=== PATIENT | female | born 1975 | race Caucasian/White ===

== ENCOUNTER 2020-07-27 11:55 | Outpatient (REF) | payer MEDICARE, MEDICAID, SELFPAY ==
[2020-07-27 13:43] LABS: Valproate 61.4 mcg/mL (50.0-100.0)
[2020-07-27 13:44] LABS: Alanine Aminotransferase 21 U/L (0-31); Albumin Level 4.3 g/dL (3.5-5.0); Alkaline Phosphatase 63 U/L (39-117); Anion Gap 15 (12-20); Aspartate Amino Transferase 14 U/L (5-31); Bilirubin Total 0.2 mg/dL (0.0-1.0); Blood Urea Nitrogen 8 mg/dL (9-16); Calcium 8.5 mg/dL (8.4-10.2); Carbon Dioxide 29 mmol/L (22-29); Chloride 98 mmol/L (96-108); Estimated Glomerular Filt Rate > 60; Glucose Random 122 mg/dL (60-115); Potassium 4.8 mmol/l (3.3-5.1); Sodium 137 mmol/L (135-145); Total Protein 6.7 g/dL (6.5-8.0)
== END 2020-07-27 11:56 | disposition home or self-care (01) ==
LOC: HO.LAB 11:55
PROVIDERS: PCP Internal Medicine; Visit Provider Clinical Nurse Specialist Psychiatric/Mental Health, Adult
DX: Z79.899 Other long term (current) drug therapy (principal)
CPT/HCPCS: 80053; 80164

== ENCOUNTER 2020-08-12 12:41 | Outpatient (REF) | payer MEDICARE, MEDICAID, SELFPAY ==
[2020-08-12 13:13] LABS: MANUAL DIFF FLAG NO
[2020-08-12 13:21] LABS: Basophils Absolute Auto 0.1 X10*3/uL (0.0-0.2); Basophils Percent Auto 0.6 % (0-2); Eosinophils Absolute Auto 0.1 X10*3/uL (0.0-0.4); Hematocrit 42.4 % (37-47); Hemoglobin 14.1 g/dl (12.0-16.0); Imm Gran Abs Auto 0.06 X10*3/uL (0.00-0.03); Imm Gran Pct Auto 0.7 % (0.0-0.4); Lymphocytes Absolute Auto 2.5 X10*3/uL (1.2-4.9); Lymphocytes Percent Auto 30.6 % (20-40); Mean Corpuscular HGB Conc 33.3 g/dl (31.0-35.0); Mean Corpuscular Hemoglobin 30.7 pg (27.0-33.0); Mean Corpuscular Volume 92.4 fL (80-98); Mean Platelet Volume 10.8 fL (9.4-12.3); Monocytes Absolute Auto 0.7 X10*3/uL (0.1-1.2); Monocytes Percent Auto 8.4 % (2-11); Neutrophils Absolute Auto 4.8 X10*3/uL (2.0-8.3); Neutrophils Percent Auto 58.7 % (45-73); Platelet Count 210 X10*3/uL (160-400); Red Blood Count 4.59 X10*6/uL (4.20-5.50); Red Cell Distribution Width 13.2 % (11.0-16.0); White Blood Count 8.2 X10*3/uL (4.8-10.8)
== END 2020-08-12 12:42 | disposition home or self-care (01) ==
LOC: HO.LAB 12:41
PROVIDERS: PCP Internal Medicine; Visit Provider Clinical Nurse Specialist Psychiatric/Mental Health, Adult
DX: Z79.899 Other long term (current) drug therapy (principal)
CPT/HCPCS: 36415; 85025

== ENCOUNTER 2020-09-10 13:40 | Outpatient (REF) | payer MEDICARE, MEDICAID, SELFPAY ==
[2020-09-10 14:15] LABS: MANUAL DIFF FLAG NO
[2020-09-10 14:23] LABS: Basophils Percent Auto 0.3 % (0-2); Eosinophils Absolute Auto 0.1 X10*3/uL (0.0-0.4); Eosinophils Percent Auto 1.4 % (0-4); Hematocrit 45.1 % (37-47); Hemoglobin 14.7 g/dl (12.0-16.0); Imm Gran Abs Auto 0.02 X10*3/uL (0.00-0.03); Imm Gran Pct Auto 0.3 % (0.0-0.4); Lymphocytes Absolute Auto 2.4 X10*3/uL (1.2-4.9); Lymphocytes Percent Auto 37.2 % (20-40); Mean Corpuscular HGB Conc 32.6 g/dl (31.0-35.0); Mean Corpuscular Hemoglobin 29.8 pg (27.0-33.0); Mean Corpuscular Volume 91.3 fL (80-98); Mean Platelet Volume 10.8 fL (9.4-12.3); Monocytes Absolute Auto 0.5 X10*3/uL (0.1-1.2); Monocytes Percent Auto 8.3 % (2-11); Neutrophils Absolute Auto 3.4 X10*3/uL (2.0-8.3); Neutrophils Percent Auto 52.5 % (45-73); Platelet Count 187 X10*3/uL (160-400); Red Blood Count 4.94 X10*6/uL (4.20-5.50); Red Cell Distribution Width 13.3 % (11.0-16.0); White Blood Count 6.5 X10*3/uL (4.8-10.8)
== END 2020-09-10 13:41 | disposition home or self-care (01) ==
LOC: HO.LABR 13:40
PROVIDERS: PCP Internal Medicine; Visit Provider Clinical Nurse Specialist Psychiatric/Mental Health, Adult
DX: Z79.899 Other long term (current) drug therapy (principal)
CPT/HCPCS: 36415; 85025

== ENCOUNTER 2020-10-08 11:41 | Outpatient (REF) | payer MEDICARE, MEDICAID, SELFPAY ==
[2020-10-08 12:22] LABS: MANUAL DIFF FLAG NO
[2020-10-08 12:30] LABS: Basophils Percent Auto 0.4 % (0-2); Eosinophils Absolute Auto 0.1 X10*3/uL (0.0-0.4); Eosinophils Percent Auto 1.2 % (0-4); Hematocrit 43.3 % (37-47); Hemoglobin 14.2 g/dl (12.0-16.0); Imm Gran Abs Auto 0.03 X10*3/uL (0.00-0.03); Imm Gran Pct Auto 0.4 % (0.0-0.4); Lymphocytes Absolute Auto 2.6 X10*3/uL (1.2-4.9); Lymphocytes Percent Auto 37.7 % (20-40); Mean Corpuscular HGB Conc 32.8 g/dl (31.0-35.0); Mean Corpuscular Hemoglobin 30.1 pg (27.0-33.0); Mean Corpuscular Volume 91.9 fL (80-98); Monocytes Absolute Auto 0.6 X10*3/uL (0.1-1.2); Monocytes Percent Auto 9.2 % (2-11); Neutrophils Absolute Auto 3.5 X10*3/uL (2.0-8.3); Neutrophils Percent Auto 51.1 % (45-73); Platelet Count 180 X10*3/uL (160-400); Red Blood Count 4.71 X10*6/uL (4.20-5.50); Red Cell Distribution Width 13.5 % (11.0-16.0); White Blood Count 6.8 X10*3/uL (4.8-10.8)
== END 2020-10-08 11:42 | disposition home or self-care (01) ==
LOC: HO.LABR 11:41
PROVIDERS: PCP Internal Medicine; Visit Provider Clinical Nurse Specialist Psychiatric/Mental Health, Adult
DX: Z79.899 Other long term (current) drug therapy (principal)
CPT/HCPCS: 36415; 85025

== ENCOUNTER 2020-11-04 15:50 | Outpatient (REF) | payer MEDICARE, MEDICAID, SELFPAY ==
[2020-11-04 16:20] LABS: MANUAL DIFF FLAG NO
[2020-11-04 16:28] LABS: Basophils Percent Auto 0.4 % (0-2); Eosinophils Absolute Auto 0.1 X10*3/uL (0.0-0.4); Eosinophils Percent Auto 0.9 % (0-4); Hematocrit 44.4 % (37-47); Hemoglobin 14.3 g/dl (12.0-16.0); Imm Gran Abs Auto 0.03 X10*3/uL (0.00-0.03); Imm Gran Pct Auto 0.4 % (0.0-0.4); Lymphocytes Absolute Auto 2.8 X10*3/uL (1.2-4.9); Lymphocytes Percent Auto 35.4 % (20-40); Mean Corpuscular HGB Conc 32.2 g/dl (31.0-35.0); Mean Corpuscular Hemoglobin 29.9 pg (27.0-33.0); Mean Corpuscular Volume 92.7 fL (80-98); Mean Platelet Volume 10.9 fL (9.4-12.3); Monocytes Absolute Auto 0.7 X10*3/uL (0.1-1.2); Monocytes Percent Auto 8.2 % (2-11); Neutrophils Absolute Auto 4.4 X10*3/uL (2.0-8.3); Neutrophils Percent Auto 54.7 % (45-73); Platelet Count 179 X10*3/uL (160-400); Red Blood Count 4.79 X10*6/uL (4.20-5.50); Red Cell Distribution Width 13.5 % (11.0-16.0)
== END 2020-11-04 15:51 | disposition home or self-care (01) ==
LOC: HO.LABR 15:50
PROVIDERS: PCP Internal Medicine; Visit Provider Clinical Nurse Specialist Psychiatric/Mental Health, Adult
DX: Z79.899 Other long term (current) drug therapy (principal)
CPT/HCPCS: 36415; 85025

== ENCOUNTER 2020-12-02 17:22 | Outpatient (REF) | payer MEDICARE, MEDICAID, SELFPAY ==
[2020-12-02 17:52] LABS: MANUAL DIFF FLAG NO
[2020-12-02 18:19] LABS: Basophils Percent Auto 0.5 % (0-2); Eosinophils Absolute Auto 0.1 X10*3/uL (0.0-0.4); Eosinophils Percent Auto 0.7 % (0-4); Hemoglobin 14.3 g/dl (12.0-16.0); Imm Gran Abs Auto 0.04 X10*3/uL (0.00-0.03); Imm Gran Pct Auto 0.5 % (0.0-0.4); Lymphocytes Absolute Auto 2.7 X10*3/uL (1.2-4.9); Lymphocytes Percent Auto 31.2 % (20-40); Mean Corpuscular HGB Conc 32.5 g/dl (31.0-35.0); Mean Corpuscular Hemoglobin 30.4 pg (27.0-33.0); Mean Corpuscular Volume 93.6 fL (80-98); Mean Platelet Volume 11.5 fL (9.4-12.3); Monocytes Absolute Auto 0.6 X10*3/uL (0.1-1.2); Monocytes Percent Auto 7.1 % (2-11); Neutrophils Absolute Auto 5.2 X10*3/uL (2.0-8.3); Platelet Count 197 X10*3/uL (160-400); Red Cell Distribution Width 13.8 % (11.0-16.0); White Blood Count 8.6 X10*3/uL (4.8-10.8)
== END 2020-12-02 17:23 | disposition home or self-care (01) ==
LOC: HO.LABR 17:22
PROVIDERS: PCP Internal Medicine; Visit Provider Clinical Nurse Specialist Psychiatric/Mental Health, Adult
DX: Z79.899 Other long term (current) drug therapy (principal)
CPT/HCPCS: 36415; 85025

== ENCOUNTER 2020-12-30 15:51 | Outpatient (REF) | payer MEDICARE, MEDICAID, SELFPAY ==
[2020-12-30 16:20] LABS: MANUAL DIFF FLAG NO
[2020-12-30 16:24] LABS: Basophils Percent Auto 0.6 % (0-2); Eosinophils Absolute Auto 0.1 X10*3/uL (0.0-0.4); Hematocrit 43.5 % (37-47); Hemoglobin 14.3 g/dl (12.0-16.0); Imm Gran Abs Auto 0.03 X10*3/uL (0.00-0.03); Imm Gran Pct Auto 0.4 % (0.0-0.4); Lymphocytes Absolute Auto 2.7 X10*3/uL (1.2-4.9); Lymphocytes Percent Auto 38.8 % (20-40); Mean Corpuscular HGB Conc 32.9 g/dl (31.0-35.0); Mean Corpuscular Hemoglobin 30.4 pg (27.0-33.0); Mean Corpuscular Volume 92.4 fL (80-98); Mean Platelet Volume 11.3 fL (9.4-12.3); Monocytes Absolute Auto 0.6 X10*3/uL (0.1-1.2); Monocytes Percent Auto 8.6 % (2-11); Neutrophils Absolute Auto 3.6 X10*3/uL (2.0-8.3); Neutrophils Percent Auto 50.6 % (45-73); Platelet Count 188 X10*3/uL (160-400); Red Blood Count 4.71 X10*6/uL (4.20-5.50); Red Cell Distribution Width 13.1 % (11.0-16.0)
== END 2020-12-30 15:52 | disposition home or self-care (01) ==
LOC: HO.LABR 15:51
PROVIDERS: PCP Internal Medicine; Visit Provider Clinical Nurse Specialist Psychiatric/Mental Health, Adult
DX: Z79.899 Other long term (current) drug therapy (principal)
CPT/HCPCS: 36415; 85025

== ENCOUNTER 2021-01-26 15:32 | Outpatient (REF) | payer MEDICARE, MEDICAID, SELFPAY ==
[2021-01-26 16:25] LABS: MANUAL DIFF FLAG NO
[2021-01-26 16:35] LABS: Basophils Percent Auto 0.4 % (0-2); Eosinophils Absolute Auto 0.1 X10*3/uL (0.0-0.4); Eosinophils Percent Auto 0.9 % (0-4); Hematocrit 43.8 % (37-47); Hemoglobin 14.2 g/dl (12.0-16.0); Imm Gran Abs Auto 0.03 X10*3/uL (0.00-0.03); Imm Gran Pct Auto 0.4 % (0.0-0.4); Lymphocytes Absolute Auto 2.6 X10*3/uL (1.2-4.9); Lymphocytes Percent Auto 37.6 % (20-40); Mean Corpuscular HGB Conc 32.4 g/dl (31.0-35.0); Mean Corpuscular Hemoglobin 30.1 pg (27.0-33.0); Mean Platelet Volume 11.3 fL (9.4-12.3); Monocytes Absolute Auto 0.7 X10*3/uL (0.1-1.2); Monocytes Percent Auto 9.7 % (2-11); Neutrophils Absolute Auto 3.5 X10*3/uL (2.0-8.3); Platelet Count 204 X10*3/uL (160-400); Red Blood Count 4.71 X10*6/uL (4.20-5.50); Red Cell Distribution Width 13.4 % (11.0-16.0); White Blood Count 6.9 X10*3/uL (4.8-10.8)
== END 2021-01-26 15:33 | disposition home or self-care (01) ==
LOC: HO.LABR 15:32
PROVIDERS: Visit Provider Clinical Nurse Specialist Psychiatric/Mental Health, Adult
DX: Z79.899 Other long term (current) drug therapy (principal)
CPT/HCPCS: 36415; 85025

== ENCOUNTER 2021-02-22 15:36 | Outpatient (REF) | payer MEDICARE, MEDICAID, SELFPAY ==
[2021-02-22 15:56] LABS: MANUAL DIFF FLAG NO
[2021-02-22 15:59] LABS: Basophils Percent Auto 0.5 % (0-2); Eosinophils Absolute Auto 0.1 X10*3/uL (0.0-0.4); Hematocrit 42.7 % (37-47); Hemoglobin 14.1 g/dl (12.0-16.0); Imm Gran Abs Auto 0.03 X10*3/uL (0.00-0.03); Imm Gran Pct Auto 0.4 % (0.0-0.4); Lymphocytes Absolute Auto 2.9 X10*3/uL (1.2-4.9); Lymphocytes Percent Auto 37.6 % (20-40); Mean Corpuscular Hemoglobin 30.3 pg (27.0-33.0); Mean Corpuscular Volume 91.8 fL (80-98); Mean Platelet Volume 10.9 fL (9.4-12.3); Monocytes Absolute Auto 0.6 X10*3/uL (0.1-1.2); Neutrophils Absolute Auto 4.1 X10*3/uL (2.0-8.3); Neutrophils Percent Auto 52.5 % (45-73); Platelet Count 180 X10*3/uL (160-400); Red Blood Count 4.65 X10*6/uL (4.20-5.50); Red Cell Distribution Width 13.6 % (11.0-16.0); White Blood Count 7.7 X10*3/uL (4.8-10.8)
== END 2021-02-22 15:37 | disposition home or self-care (01) ==
LOC: HO.LABR 15:36
PROVIDERS: PCP Internal Medicine; Visit Provider Clinical Nurse Specialist Psychiatric/Mental Health, Adult
DX: Z79.899 Other long term (current) drug therapy (principal)
CPT/HCPCS: 36415; 85025

== ENCOUNTER 2021-03-22 13:33 | Outpatient (REF) | payer MEDICARE, MEDICAID, SELFPAY ==
[2021-03-22 13:59] LABS: MANUAL DIFF FLAG NO
[2021-03-22 14:05] LABS: Basophils Percent Auto 0.5 % (0-2); Eosinophils Absolute Auto 0.1 X10*3/uL (0.0-0.4); Eosinophils Percent Auto 1.1 % (0-4); Hematocrit 44.2 % (37-47); Hemoglobin 14.5 g/dl (12.0-16.0); Imm Gran Abs Auto 0.03 X10*3/uL (0.00-0.03); Imm Gran Pct Auto 0.5 % (0.0-0.4); Lymphocytes Absolute Auto 2.3 X10*3/uL (1.2-4.9); Lymphocytes Percent Auto 35.9 % (20-40); Mean Corpuscular HGB Conc 32.8 g/dl (31.0-35.0); Mean Corpuscular Hemoglobin 30.4 pg (27.0-33.0); Mean Corpuscular Volume 92.7 fL (80-98); Mean Platelet Volume 10.7 fL (9.4-12.3); Monocytes Absolute Auto 0.6 X10*3/uL (0.1-1.2); Monocytes Percent Auto 9.1 % (2-11); Neutrophils Absolute Auto 3.4 X10*3/uL (2.0-8.3); Neutrophils Percent Auto 52.9 % (45-73); Platelet Count 194 X10*3/uL (160-400); Red Blood Count 4.77 X10*6/uL (4.20-5.50); Red Cell Distribution Width 14.2 % (11.0-16.0); White Blood Count 6.4 X10*3/uL (4.8-10.8)
== END 2021-03-22 13:34 | disposition home or self-care (01) ==
LOC: HO.LABR 13:33
PROVIDERS: PCP Internal Medicine; Visit Provider Clinical Nurse Specialist Psychiatric/Mental Health, Adult
DX: Z79.899 Other long term (current) drug therapy (principal)
CPT/HCPCS: 36415; 85025

== ENCOUNTER 2021-04-19 13:57 | Outpatient (REF) | payer MEDICARE, MEDICAID, SELFPAY ==
[2021-04-19 14:20] LABS: MANUAL DIFF FLAG NO
[2021-04-19 14:24] LABS: Basophils Percent Auto 0.6 % (0-2); Eosinophils Absolute Auto 0.1 X10*3/uL (0.0-0.4); Eosinophils Percent Auto 1.1 % (0-4); Hematocrit 46.1 % (37-47); Hemoglobin 14.9 g/dl (12.0-16.0); Imm Gran Abs Auto 0.04 X10*3/uL (0.00-0.03); Imm Gran Pct Auto 0.6 % (0.0-0.4); Lymphocytes Absolute Auto 2.7 X10*3/uL (1.2-4.9); Lymphocytes Percent Auto 38.1 % (20-40); Mean Corpuscular HGB Conc 32.3 g/dl (31.0-35.0); Mean Corpuscular Hemoglobin 29.4 pg (27.0-33.0); Mean Corpuscular Volume 91.1 fL (80-98); Mean Platelet Volume 10.4 fL (9.4-12.3); Monocytes Absolute Auto 0.6 X10*3/uL (0.1-1.2); Monocytes Percent Auto 8.6 % (2-11); Neutrophils Absolute Auto 3.6 X10*3/uL (2.0-8.3); Platelet Count 188 X10*3/uL (160-400); Red Blood Count 5.06 X10*6/uL (4.20-5.50); Red Cell Distribution Width 13.4 % (11.0-16.0); White Blood Count 7.1 X10*3/uL (4.8-10.8)
[2021-04-23 21:35] LABS: Clozapine (Clozaril) 318 mcg/L; Norclozapine 109 mcg/L (25-400)
== END 2021-04-19 13:58 | disposition home or self-care (01) ==
LOC: HO.LABR 13:57
PROVIDERS: PCP Internal Medicine; Visit Provider Clinical Nurse Specialist Psychiatric/Mental Health, Adult
DX: Z79.899 Other long term (current) drug therapy (principal)
CPT/HCPCS: 36415; 80159; 85025

== ENCOUNTER 2021-05-17 14:29 | Outpatient (REF) | payer MEDICARE, MEDICAID, SELFPAY ==
[2021-05-17 15:22] LABS: MANUAL DIFF FLAG NO
[2021-05-17 15:31] LABS: Basophils Percent Auto 0.2 % (0-2); Eosinophils Absolute Auto 0.1 X10*3/uL (0.0-0.4); Eosinophils Percent Auto 0.7 % (0-4); Hematocrit 44.8 % (37-47); Hemoglobin 14.6 g/dl (12.0-16.0); Imm Gran Abs Auto 0.05 X10*3/uL (0.00-0.03); Imm Gran Pct Auto 0.6 % (0.0-0.4); Lymphocytes Absolute Auto 2.9 X10*3/uL (1.2-4.9); Lymphocytes Percent Auto 35.2 % (20-40); Mean Corpuscular HGB Conc 32.6 g/dl (31.0-35.0); Mean Corpuscular Hemoglobin 29.7 pg (27.0-33.0); Mean Corpuscular Volume 91.1 fL (80-98); Mean Platelet Volume 10.8 fL (9.4-12.3); Monocytes Absolute Auto 0.6 X10*3/uL (0.1-1.2); Monocytes Percent Auto 7.5 % (2-11); Neutrophils Absolute Auto 4.5 X10*3/uL (2.0-8.3); Neutrophils Percent Auto 55.8 % (45-73); Platelet Count 205 X10*3/uL (160-400); Red Blood Count 4.92 X10*6/uL (4.20-5.50); Red Cell Distribution Width 13.2 % (11.0-16.0); White Blood Count 8.1 X10*3/uL (4.8-10.8)
== END 2021-05-17 14:30 | disposition home or self-care (01) ==
LOC: HO.LABR 14:29
PROVIDERS: PCP Internal Medicine; Visit Provider Clinical Nurse Specialist Psychiatric/Mental Health, Adult
DX: Z79.899 Other long term (current) drug therapy (principal)
CPT/HCPCS: 36415; 85025

== ENCOUNTER 2021-06-14 16:24 | Outpatient (REF) | payer MEDICARE, MEDICAID, SELFPAY ==
[2021-06-14 16:46] LABS: MANUAL DIFF FLAG NO
[2021-06-14 16:50] LABS: Basophils Percent Auto 0.3 % (0-2); Eosinophils Absolute Auto 0.1 X10*3/uL (0.0-0.4); Eosinophils Percent Auto 0.7 % (0-4); Hematocrit 43.2 % (37-47); Hemoglobin 14.6 g/dl (12.0-16.0); Imm Gran Abs Auto 0.06 X10*3/uL (0.00-0.03); Imm Gran Pct Auto 0.6 % (0.0-0.4); Lymphocytes Absolute Auto 3.2 X10*3/uL (1.2-4.9); Lymphocytes Percent Auto 32.7 % (20-40); Mean Corpuscular HGB Conc 33.8 g/dl (31.0-35.0); Mean Corpuscular Hemoglobin 30.2 pg (27.0-33.0); Mean Corpuscular Volume 89.4 fL (80-98); Mean Platelet Volume 10.7 fL (9.4-12.3); Monocytes Absolute Auto 0.7 X10*3/uL (0.1-1.2); Monocytes Percent Auto 7.5 % (2-11); Neut%MD 58.2 %; Neutrophils Absolute Auto 5.7 X10*3/uL (2.0-8.3); Neutrophils Percent Auto 58.2 % (45-73); Platelet Count 199 X10*3/uL (160-400); Red Blood Count 4.83 X10*6/uL (4.20-5.50); WBCANC 9.9 X10*3/uL; White Blood Count 9.9 X10*3/uL (4.8-10.8)
== END 2021-06-14 16:25 | disposition home or self-care (01) ==
LOC: HO.LABR 16:24
PROVIDERS: PCP Internal Medicine; Visit Provider Clinical Nurse Specialist Psychiatric/Mental Health, Adult
DX: Z79.899 Other long term (current) drug therapy (principal)
CPT/HCPCS: 36415; 85025

== ENCOUNTER 2021-07-12 17:29 | Outpatient (REF) | payer MEDICARE, MEDICAID, SELFPAY ==
[2021-07-12 17:41] LABS: MANUAL DIFF FLAG NO
[2021-07-12 17:59] LABS: Basophils Percent Auto 0.5 % (0-2); Eosinophils Absolute Auto 0.1 X10*3/uL (0.0-0.4); Eosinophils Percent Auto 0.9 % (0-4); Hematocrit 45.2 % (37-47); Hemoglobin 14.8 g/dl (12.0-16.0); Imm Gran Abs Auto 0.06 X10*3/uL (0.00-0.03); Imm Gran Pct Auto 0.8 % (0.0-0.4); Lymphocytes Absolute Auto 3.4 X10*3/uL (1.2-4.9); Mean Corpuscular HGB Conc 32.7 g/dl (31.0-35.0); Mean Corpuscular Hemoglobin 29.9 pg (27.0-33.0); Mean Corpuscular Volume 91.3 fL (80-98); Monocytes Absolute Auto 0.6 X10*3/uL (0.1-1.2); Monocytes Percent Auto 7.8 % (2-11); Neutrophils Absolute Auto 3.9 X10*3/uL (2.0-8.3); Platelet Count 191 X10*3/uL (160-400); Red Blood Count 4.95 X10*6/uL (4.20-5.50); Red Cell Distribution Width 13.2 % (11.0-16.0)
== END 2021-07-12 17:30 | disposition home or self-care (01) ==
LOC: HO.LABR 17:29
PROVIDERS: PCP Internal Medicine; Visit Provider Clinical Nurse Specialist Psychiatric/Mental Health, Adult
DX: Z79.899 Other long term (current) drug therapy (principal)
CPT/HCPCS: 36415; 85025

== ENCOUNTER 2021-08-09 13:42 | Outpatient (REF) | payer MEDICARE, MEDICAID, SELFPAY ==
[2021-08-09 13:56] LABS: MANUAL DIFF FLAG NO
[2021-08-09 14:21] LABS: Basophils Percent Auto 0.3 % (0-2); Eosinophils Absolute Auto 0.1 X10*3/uL (0.0-0.4); Eosinophils Percent Auto 0.7 % (0-4); Hematocrit 47.3 % (37.0-47.0); Hemoglobin 15.5 g/dl (12.0-16.0); Imm Gran Abs Auto 0.04 X10*3/uL (0.00-0.03); Imm Gran Pct Auto 0.4 % (0.0-0.4); Lymphocytes Absolute Auto 3.5 X10*3/uL (1.2-4.9); Lymphocytes Percent Auto 33.3 % (20-40); Mean Corpuscular HGB Conc 32.8 g/dl (31.0-35.0); Mean Corpuscular Volume 91.5 fL (80.0-98.0); Mean Platelet Volume 11.2 fL (9.4-12.3); Monocytes Absolute Auto 0.8 X10*3/uL (0.1-1.2); Monocytes Percent Auto 7.8 % (2-11); Neutrophils Absolute Auto 6.1 x10*3/uL (2.0-8.3); Neutrophils Percent Auto 57.5 % (45-73); Platelet Count 193 X10*3/uL (160-400); Red Blood Count 5.17 X10*6/uL (4.20-5.50); Red Cell Distribution Width 13.2 % (11.0-16.0); White Blood Count 10.6 X10*3/uL (4.8-10.8)
== END 2021-08-09 13:43 | disposition home or self-care (01) ==
LOC: HO.LABR 13:42
PROVIDERS: Visit Provider Clinical Nurse Specialist Psychiatric/Mental Health, Adult
DX: Z79.899 Other long term (current) drug therapy (principal)
CPT/HCPCS: 36415; 85025

== ENCOUNTER 2021-09-06 14:06 | Outpatient (REF) | payer MEDICARE, MEDICAID, SELFPAY ==
[2021-09-06 14:18] LABS: MANUAL DIFF FLAG NO
[2021-09-06 14:32] LABS: Basophils Absolute Auto 0.1 X10*3/uL (0.0-0.2); Basophils Percent Auto 0.6 % (0-2); Eosinophils Absolute Auto 0.1 X10*3/uL (0.0-0.4); Eosinophils Percent Auto 0.8 % (0-4); Hematocrit 45.7 % (37.0-47.0); Hemoglobin 14.8 g/dl (12.0-16.0); Imm Gran Abs Auto 0.03 X10*3/uL (0.00-0.03); Imm Gran Pct Auto 0.3 % (0.0-0.4); Lymphocytes Absolute Auto 3.4 X10*3/uL (1.2-4.9); Lymphocytes Percent Auto 38.4 % (20-40); Mean Corpuscular HGB Conc 32.4 g/dl (31.0-35.0); Mean Corpuscular Volume 92.5 fL (80.0-98.0); Mean Platelet Volume 10.9 fL (9.4-12.3); Monocytes Absolute Auto 0.6 X10*3/uL (0.1-1.2); Monocytes Percent Auto 7.1 % (2-11); Neut%MD 52.8 %; Neutrophils Absolute Auto 4.6 x10*3/uL (2.0-8.3); Neutrophils Percent Auto 52.8 % (45-73); Platelet Count 200 X10*3/uL (160-400); Red Blood Count 4.94 X10*6/uL (4.20-5.50); Red Cell Distribution Width 13.2 % (11.0-16.0); WBCANC 8.8 X10*3/uL; White Blood Count 8.8 X10*3/uL (4.8-10.8)
== END 2021-09-06 14:07 | disposition home or self-care (01) ==
LOC: HO.LABR 14:06
PROVIDERS: PCP Internal Medicine; Visit Provider Clinical Nurse Specialist Psychiatric/Mental Health, Adult
DX: Z79.899 Other long term (current) drug therapy (principal)
CPT/HCPCS: 36415; 85025

== ENCOUNTER 2021-10-04 14:31 | Outpatient (REF) | payer MEDICARE, MEDICAID, SELFPAY ==
[2021-10-04 14:49] LABS: MANUAL DIFF FLAG NO
[2021-10-04 14:56] LABS: Basophils Percent Auto 0.4 % (0-2); Eosinophils Absolute Auto 0.1 X10*3/uL (0.0-0.4); Eosinophils Percent Auto 0.7 % (0-4); Hematocrit 48.2 % (37.0-47.0); Hemoglobin 15.7 g/dl (12.0-16.0); Imm Gran Abs Auto 0.04 X10*3/uL (0.00-0.03); Imm Gran Pct Auto 0.4 % (0.0-0.4); Lymphocytes Absolute Auto 3.5 X10*3/uL (1.2-4.9); Lymphocytes Percent Auto 38.5 % (20-40); Mean Corpuscular HGB Conc 32.6 g/dl (31.0-35.0); Mean Platelet Volume 10.8 fL (9.4-12.3); Monocytes Absolute Auto 0.7 X10*3/uL (0.1-1.2); Monocytes Percent Auto 7.2 % (2-11); Neut%MD 52.8 %; Neutrophils Absolute Auto 4.8 x10*3/uL (2.0-8.3); Neutrophils Percent Auto 52.8 % (45-73); Platelet Count 183 X10*3/uL (160-400); Red Blood Count 5.24 X10*6/uL (4.20-5.50); Red Cell Distribution Width 13.4 % (11.0-16.0); WBCANC 9.1 X10*3/uL; White Blood Count 9.1 X10*3/uL (4.8-10.8)
== END 2021-10-04 14:32 | disposition home or self-care (01) ==
LOC: HO.LABR 14:31
PROVIDERS: PCP Internal Medicine; Visit Provider Clinical Nurse Specialist Psychiatric/Mental Health, Adult
DX: Z79.899 Other long term (current) drug therapy (principal)
CPT/HCPCS: 36415; 85025

== ENCOUNTER 2021-11-01 14:59 | Outpatient (REF) | payer MEDICARE, MEDICAID, SELFPAY ==
[2021-11-01 15:23] LABS: MANUAL DIFF FLAG NO
[2021-11-01 16:03] LABS: Basophils Percent Auto 0.3 % (0-2); Eosinophils Absolute Auto 0.1 X10*3/uL (0.0-0.4); Eosinophils Percent Auto 0.6 % (0-4); Hemoglobin 15.9 g/dl (12.0-16.0); Imm Gran Abs Auto 0.04 X10*3/uL (0.00-0.03); Imm Gran Pct Auto 0.4 % (0.0-0.4); Lymphocytes Absolute Auto 3.8 X10*3/uL (1.2-4.9); Lymphocytes Percent Auto 41.2 % (20-40); Mean Corpuscular HGB Conc 33.1 g/dl (31.0-35.0); Mean Corpuscular Hemoglobin 29.7 pg (27.0-33.0); Mean Corpuscular Volume 89.7 fL (80.0-98.0); Mean Platelet Volume 11.1 fL (9.4-12.3); Monocytes Absolute Auto 0.7 X10*3/uL (0.1-1.2); Neutrophils Absolute Auto 4.6 x10*3/uL (2.0-8.3); Neutrophils Percent Auto 49.5 % (45-73); Platelet Count 195 X10*3/uL (160-400); Red Blood Count 5.35 X10*6/uL (4.20-5.50); Red Cell Distribution Width 13.5 % (11.0-16.0); White Blood Count 9.3 X10*3/uL (4.8-10.8)
== END 2021-11-01 15:00 | disposition home or self-care (01) ==
LOC: HO.LABR 14:59
PROVIDERS: PCP Internal Medicine; Visit Provider Clinical Nurse Specialist Psychiatric/Mental Health, Adult
DX: Z79.899 Other long term (current) drug therapy (principal)
CPT/HCPCS: 36415; 85025

== ENCOUNTER 2021-11-29 13:07 | Outpatient (REF) | payer MEDICARE, MEDICAID, SELFPAY ==
[2021-11-29 13:38] LABS: Neutrophils Absolute Auto 3.9 x10*3/uL (2.0-8.3)
== END 2021-11-29 13:08 | disposition home or self-care (01) ==
LOC: HO.LABR 13:07
PROVIDERS: PCP Internal Medicine; Visit Provider Clinical Nurse Specialist Psychiatric/Mental Health, Adult
DX: Z79.899 Other long term (current) drug therapy (principal)
CPT/HCPCS: 36415; 85048

== ENCOUNTER 2021-12-27 14:58 | Outpatient (REF) | payer MEDICARE, MEDICAID, SELFPAY ==
[2021-12-27 15:15] LABS: MANUAL DIFF FLAG NO
[2021-12-27 16:04] LABS: Basophils Percent Auto 0.5 % (0-2); Eosinophils Absolute Auto 0.1 X10*3/uL (0.0-0.4); Eosinophils Percent Auto 0.7 % (0-4); Hematocrit 47.3 % (37.0-47.0); Hemoglobin 15.6 g/dl (12.0-16.0); Imm Gran Abs Auto 0.03 X10*3/uL (0.00-0.03); Imm Gran Pct Auto 0.4 % (0.0-0.4); Lymphocytes Absolute Auto 3.8 X10*3/uL (1.2-4.9); Lymphocytes Percent Auto 46.8 % (20-40); Mean Corpuscular Hemoglobin 30.5 pg (27.0-33.0); Mean Corpuscular Volume 92.6 fL (80.0-98.0); Monocytes Absolute Auto 0.6 X10*3/uL (0.1-1.2); Monocytes Percent Auto 7.5 % (2-11); Neutrophils Absolute Auto 3.6 x10*3/uL (2.0-8.3); Neutrophils Percent Auto 44.1 % (45-73); Platelet Count 196 X10*3/uL (160-400); Red Blood Count 5.11 X10*6/uL (4.20-5.50); Red Cell Distribution Width 13.6 % (11.0-16.0); White Blood Count 8.1 X10*3/uL (4.8-10.8)
== END 2021-12-27 14:59 | disposition home or self-care (01) ==
LOC: HO.LABR 14:58
PROVIDERS: PCP Internal Medicine; Visit Provider Clinical Nurse Specialist Psychiatric/Mental Health, Adult
DX: Z79.899 Other long term (current) drug therapy (principal)
CPT/HCPCS: 36415; 85025

== ENCOUNTER 2022-01-24 14:02 | Outpatient (REF) | payer MEDICARE, MEDICAID, SELFPAY ==
[2022-01-24 14:28] LABS: MANUAL DIFF FLAG NO
[2022-01-24 14:58] LABS: Basophils Percent Auto 0.4 % (0-2); Eosinophils Absolute Auto 0.1 X10*3/uL (0.0-0.4); Eosinophils Percent Auto 0.8 % (0-4); Hematocrit 47.4 % (37.0-47.0); Hemoglobin 15.8 g/dl (12.0-16.0); Imm Gran Abs Auto 0.03 X10*3/uL (0.00-0.03); Imm Gran Pct Auto 0.3 % (0.0-0.4); Lymphocytes Absolute Auto 3.7 X10*3/uL (1.2-4.9); Lymphocytes Percent Auto 36.8 % (20-40); Mean Corpuscular HGB Conc 33.3 g/dl (31.0-35.0); Mean Corpuscular Hemoglobin 30.4 pg (27.0-33.0); Mean Corpuscular Volume 91.2 fL (80.0-98.0); Mean Platelet Volume 11.1 fL (9.4-12.3); Monocytes Absolute Auto 0.8 X10*3/uL (0.1-1.2); Monocytes Percent Auto 8.3 % (2-11); Neutrophils Absolute Auto 5.4 x10*3/uL (2.0-8.3); Neutrophils Percent Auto 53.4 % (45-73); Platelet Count 191 X10*3/uL (160-400); Red Cell Distribution Width 12.8 % (11.0-16.0); White Blood Count 10.1 X10*3/uL (4.8-10.8)
== END 2022-01-24 14:03 | disposition home or self-care (01) ==
LOC: HO.LABR 14:02
PROVIDERS: PCP Internal Medicine; Visit Provider Clinical Nurse Specialist Psychiatric/Mental Health, Adult
DX: Z79.899 Other long term (current) drug therapy (principal)
CPT/HCPCS: 36415; 85025

== ENCOUNTER 2022-02-21 14:48 | Outpatient (REF) | payer MEDICARE, MEDICAID, SELFPAY ==
[2022-02-21 15:09] LABS: MANUAL DIFF FLAG NO
[2022-02-21 15:47] LABS: Basophils Percent Auto 0.4 % (0-2); Eosinophils Absolute Auto 0.1 X10*3/uL (0.0-0.4); Hematocrit 47.7 % (37.0-47.0); Hemoglobin 15.7 g/dl (12.0-16.0); Imm Gran Abs Auto 0.04 X10*3/uL (0.00-0.03); Imm Gran Pct Auto 0.4 % (0.0-0.4); Lymphocytes Absolute Auto 3.5 X10*3/uL (1.2-4.9); Lymphocytes Percent Auto 35.3 % (20-40); Mean Corpuscular HGB Conc 32.9 g/dl (31.0-35.0); Mean Corpuscular Hemoglobin 30.1 pg (27.0-33.0); Mean Corpuscular Volume 91.6 fL (80.0-98.0); Mean Platelet Volume 10.8 fL (9.4-12.3); Monocytes Absolute Auto 0.6 X10*3/uL (0.1-1.2); Monocytes Percent Auto 6.3 % (2-11); Neutrophils Absolute Auto 5.6 x10*3/uL (2.0-8.3); Neutrophils Percent Auto 56.6 % (45-73); Platelet Count 184 X10*3/uL (160-400); Red Blood Count 5.21 X10*6/uL (4.20-5.50); White Blood Count 9.8 X10*3/uL (4.8-10.8)
== END 2022-02-21 14:49 | disposition home or self-care (01) ==
LOC: HO.LABR 14:48
PROVIDERS: PCP Internal Medicine; Visit Provider Clinical Nurse Specialist Psychiatric/Mental Health, Adult
DX: Z79.899 Other long term (current) drug therapy (principal)
CPT/HCPCS: 36415; 85025

== ENCOUNTER 2022-03-21 14:30 | Outpatient (REF) | payer MEDICARE, MEDICAID, SELFPAY ==
[2022-03-21 14:47] LABS: MANUAL DIFF FLAG NO
[2022-03-21 15:37] LABS: Basophils Percent Auto 0.3 % (0-2); Eosinophils Absolute Auto 0.1 X10*3/uL (0.0-0.4); Eosinophils Percent Auto 0.9 % (0-4); Hematocrit 44.5 % (37.0-47.0); Hemoglobin 14.9 g/dl (12.0-16.0); Imm Gran Abs Auto 0.03 X10*3/uL (0.00-0.03); Imm Gran Pct Auto 0.3 % (0.0-0.4); Lymphocytes Absolute Auto 3.5 X10*3/uL (1.2-4.9); Mean Corpuscular HGB Conc 33.5 g/dl (31.0-35.0); Mean Corpuscular Hemoglobin 30.4 pg (27.0-33.0); Mean Corpuscular Volume 90.8 fL (80.0-98.0); Mean Platelet Volume 11.2 fL (9.4-12.3); Monocytes Absolute Auto 0.6 X10*3/uL (0.1-1.2); Monocytes Percent Auto 6.4 % (2-11); Neutrophils Percent Auto 54.1 % (45-73); Platelet Count 166 X10*3/uL (160-400); Red Cell Distribution Width 13.1 % (11.0-16.0); White Blood Count 9.3 X10*3/uL (4.8-10.8)
== END 2022-03-21 14:31 | disposition home or self-care (01) ==
LOC: HO.LAB 14:30
PROVIDERS: Visit Provider Clinical Nurse Specialist Psychiatric/Mental Health, Adult
DX: Z79.899 Other long term (current) drug therapy (principal)
CPT/HCPCS: 36415; 85025

== ENCOUNTER 2022-04-20 16:05 | Outpatient (REF) | payer MEDICARE, MEDICAID, SELFPAY ==
[2022-04-20 16:14] LABS: MANUAL DIFF FLAG NO
[2022-04-20 17:48] LABS: Basophils Percent Auto 0.3 % (0-2); Eosinophils Absolute Auto 0.1 X10*3/uL (0.0-0.4); Eosinophils Percent Auto 0.9 % (0-4); Hematocrit 47.2 % (37.0-47.0); Hemoglobin 15.5 g/dl (12.0-16.0); Imm Gran Abs Auto 0.03 X10*3/uL (0.00-0.03); Imm Gran Pct Auto 0.3 % (0.0-0.4); Lymphocytes Absolute Auto 4.1 X10*3/uL (1.2-4.9); Lymphocytes Percent Auto 47.7 % (20-40); Mean Corpuscular HGB Conc 32.8 g/dl (31.0-35.0); Mean Corpuscular Hemoglobin 29.8 pg (27.0-33.0); Mean Corpuscular Volume 90.8 fL (80.0-98.0); Mean Platelet Volume 11.4 fL (9.4-12.3); Monocytes Absolute Auto 0.7 X10*3/uL (0.1-1.2); Monocytes Percent Auto 8.1 % (2-11); Neutrophils Absolute Auto 3.7 x10*3/uL (2.0-8.3); Neutrophils Percent Auto 42.7 % (45-73); Platelet Count 174 X10*3/uL (160-400); Red Cell Distribution Width 13.6 % (11.0-16.0); White Blood Count 8.6 X10*3/uL (4.8-10.8)
== END 2022-04-20 16:06 | disposition home or self-care (01) ==
LOC: HO.LABR 16:05
PROVIDERS: PCP Internal Medicine; Visit Provider Clinical Nurse Specialist Psychiatric/Mental Health, Adult
DX: Z79.899 Other long term (current) drug therapy (principal)
CPT/HCPCS: 36415; 85025

== ENCOUNTER 2022-05-18 16:36 | Outpatient (REF) | payer MEDICARE, MEDICAID, SELFPAY ==
[2022-05-18 16:48] LABS: MANUAL DIFF FLAG NO
[2022-05-18 17:01] LABS: Basophils Percent Auto 0.3 % (0-2); Eosinophils Absolute Auto 0.1 X10*3/uL (0.0-0.4); Eosinophils Percent Auto 0.7 % (0-4); Hematocrit 47.1 % (37.0-47.0); Hemoglobin 15.7 g/dl (12.0-16.0); Imm Gran Abs Auto 0.02 X10*3/uL (0.00-0.03); Imm Gran Pct Auto 0.2 % (0.0-0.4); Lymphocytes Absolute Auto 4.1 X10*3/uL (1.2-4.9); Lymphocytes Percent Auto 44.7 % (20-40); Mean Corpuscular HGB Conc 33.3 g/dl (31.0-35.0); Mean Corpuscular Hemoglobin 29.9 pg (27.0-33.0); Mean Corpuscular Volume 89.7 fL (80.0-98.0); Mean Platelet Volume 10.5 fL (9.4-12.3); Monocytes Absolute Auto 0.6 X10*3/uL (0.1-1.2); Monocytes Percent Auto 6.9 % (2-11); Neutrophils Absolute Auto 4.3 x10*3/uL (2.0-8.3); Neutrophils Percent Auto 47.2 % (45-73); Platelet Count 186 X10*3/uL (160-400); Red Blood Count 5.25 X10*6/uL (4.20-5.50); Red Cell Distribution Width 13.7 % (11.0-16.0); White Blood Count 9.1 X10*3/uL (4.8-10.8)
== END 2022-05-18 16:37 | disposition home or self-care (01) ==
LOC: HO.LABR 16:36
PROVIDERS: Visit Provider Clinical Nurse Specialist Psychiatric/Mental Health, Adult
DX: Z79.899 Other long term (current) drug therapy (principal)
CPT/HCPCS: 36415; 85025

== ENCOUNTER 2022-06-15 15:40 | Outpatient (REF) | payer MEDICARE, MEDICAID, SELFPAY ==
[2022-06-15 15:54] LABS: MANUAL DIFF FLAG NO
[2022-06-15 16:29] LABS: Basophils Percent Auto 0.4 % (0-2); Eosinophils Absolute Auto 0.1 X10*3/uL (0.0-0.4); Eosinophils Percent Auto 1.3 % (0-4); Hemoglobin 15.8 g/dl (12.0-16.0); Imm Gran Abs Auto 0.02 X10*3/uL (0.00-0.03); Imm Gran Pct Auto 0.3 % (0.0-0.4); Lymphocytes Absolute Auto 3.2 X10*3/uL (1.2-4.9); Lymphocytes Percent Auto 44.7 % (20-40); Mean Corpuscular HGB Conc 32.9 g/dl (31.0-35.0); Mean Corpuscular Hemoglobin 30.4 pg (27.0-33.0); Mean Corpuscular Volume 92.5 fL (80.0-98.0); Mean Platelet Volume 11.3 fL (9.4-12.3); Monocytes Absolute Auto 0.6 X10*3/uL (0.1-1.2); Neutrophils Absolute Auto 3.2 x10*3/uL (2.0-8.3); Neutrophils Percent Auto 45.3 % (45-73); Platelet Count 178 X10*3/uL (160-400); Red Blood Count 5.19 X10*6/uL (4.20-5.50); Red Cell Distribution Width 13.4 % (11.0-16.0)
[2022-06-15 16:48] LABS: Alanine Aminotransferase 23 U/L (0-31); Albumin Level 4.5 g/dL (3.5-5.0); Alkaline Phosphatase 77 U/L (39-117); Anion Gap 18 (12-20); Aspartate Amino Transferase 16 U/L (5-31); Bilirubin Total 0.4 mg/dL (0.0-1.0); Blood Urea Nitrogen 12 mg/dL (9-16); Calcium 9.9 mg/dL (8.4-10.2); Carbon Dioxide 30 mmol/L (22-29); Chloride 97 mmol/L (96-108); Estimated Glomerular Filt Rate > 60; Glucose Random 137 mg/dL (60-115); Potassium 4.5 mmol/L (3.3-5.1); Sodium 140 mmol/L (135-145)
== END 2022-06-15 15:41 | disposition home or self-care (01) ==
LOC: HO.LAB 15:40
PROVIDERS: PCP Internal Medicine; Visit Provider Clinical Nurse Specialist Psychiatric/Mental Health, Adult
DX: Z79.899 Other long term (current) drug therapy (principal)
CPT/HCPCS: 36415; 80053; 85025

== ENCOUNTER 2022-07-11 15:55 | Outpatient (REF) | payer MEDICARE, MEDICAID, SELFPAY ==
[2022-07-11 16:11] LABS: MANUAL DIFF FLAG NO
[2022-07-11 16:36] LABS: Basophils Percent Auto 0.5 % (0-2); Eosinophils Absolute Auto 0.1 X10*3/uL (0.0-0.4); Eosinophils Percent Auto 0.9 % (0-4); Hemoglobin 15.9 g/dl (12.0-16.0); Imm Gran Abs Auto 0.03 X10*3/uL (0.00-0.03); Imm Gran Pct Auto 0.4 % (0.0-0.4); Lymphocytes Absolute Auto 3.5 X10*3/uL (1.2-4.9); Mean Corpuscular HGB Conc 33.8 g/dl (31.0-35.0); Mean Corpuscular Hemoglobin 30.8 pg (27.0-33.0); Mean Corpuscular Volume 91.1 fL (80.0-98.0); Mean Platelet Volume 11.2 fL (9.4-12.3); Monocytes Absolute Auto 0.5 X10*3/uL (0.1-1.2); Monocytes Percent Auto 6.5 % (2-11); Neut%MD 49.7 %; Neutrophils Absolute Auto 4.1 x10*3/uL (2.0-8.3); Neutrophils Percent Auto 49.7 % (45-73); Platelet Count 183 X10*3/uL (160-400); Red Blood Count 5.16 X10*6/uL (4.20-5.50); Red Cell Distribution Width 12.9 % (11.0-16.0); WBCANC 8.2 X10*3/uL; White Blood Count 8.2 X10*3/uL (4.8-10.8)
== END 2022-07-11 15:56 | disposition home or self-care (01) ==
LOC: HO.LABR 15:55
PROVIDERS: PCP Internal Medicine; Visit Provider Clinical Nurse Specialist Psychiatric/Mental Health, Adult
DX: Z79.899 Other long term (current) drug therapy (principal)
CPT/HCPCS: 36415; 85025

== ENCOUNTER 2022-08-08 12:53 | Outpatient (REF) | payer MEDICARE, MEDICAID, SELFPAY ==
[2022-08-08 13:04] LABS: MANUAL DIFF FLAG NO
[2022-08-08 14:13] LABS: Basophils Percent Auto 0.2 % (0-2); Eosinophils Absolute Auto 0.1 X10*3/uL (0.0-0.4); Eosinophils Percent Auto 0.8 % (0-4); Hematocrit 48.4 % (37.0-47.0); Hemoglobin 15.9 g/dl (12.0-16.0); Imm Gran Abs Auto 0.03 X10*3/uL (0.00-0.03); Imm Gran Pct Auto 0.3 % (0.0-0.4); Lymphocytes Absolute Auto 3.3 X10*3/uL (1.2-4.9); Lymphocytes Percent Auto 38.6 % (20-40); Mean Corpuscular HGB Conc 32.9 g/dl (31.0-35.0); Mean Corpuscular Hemoglobin 30.3 pg (27.0-33.0); Mean Corpuscular Volume 92.4 fL (80.0-98.0); Mean Platelet Volume 11.4 fL (9.4-12.3); Monocytes Absolute Auto 0.6 X10*3/uL (0.1-1.2); Monocytes Percent Auto 7.1 % (2-11); Neutrophils Absolute Auto 4.6 x10*3/uL (2.0-8.3); Platelet Count 195 X10*3/uL (160-400); Red Blood Count 5.24 X10*6/uL (4.20-5.50); Red Cell Distribution Width 12.9 % (11.0-16.0); White Blood Count 8.6 X10*3/uL (4.8-10.8)
== END 2022-08-08 12:54 | disposition home or self-care (01) ==
LOC: HO.LABR 12:53
PROVIDERS: PCP Internal Medicine; Visit Provider Clinical Nurse Specialist Psychiatric/Mental Health, Adult
DX: Z79.899 Other long term (current) drug therapy (principal)
CPT/HCPCS: 36415; 85025

== ENCOUNTER 2022-09-05 11:30 | Outpatient (REF) | payer MEDICARE, MEDICAID, SELFPAY ==
[2022-09-05 11:47] LABS: MANUAL DIFF FLAG NO
[2022-09-05 12:35] LABS: Basophils Percent Auto 0.5 % (0-2); Eosinophils Absolute Auto 0.1 X10*3/uL (0.0-0.4); Eosinophils Percent Auto 0.8 % (0-4); Hematocrit 47.1 % (37.0-47.0); Hemoglobin 15.7 g/dl (12.0-16.0); Imm Gran Abs Auto 0.03 X10*3/uL (0.00-0.03); Imm Gran Pct Auto 0.4 % (0.0-0.4); Lymphocytes Absolute Auto 3.2 X10*3/uL (1.2-4.9); Lymphocytes Percent Auto 39.6 % (20-40); Mean Corpuscular HGB Conc 33.3 g/dl (31.0-35.0); Mean Corpuscular Hemoglobin 30.5 pg (27.0-33.0); Mean Corpuscular Volume 91.5 fL (80.0-98.0); Mean Platelet Volume 11.4 fL (9.4-12.3); Monocytes Absolute Auto 0.5 X10*3/uL (0.1-1.2); Monocytes Percent Auto 6.5 % (2-11); Neut%MD 52.2 %; Neutrophils Absolute Auto 4.2 x10*3/uL (2.0-8.3); Neutrophils Percent Auto 52.2 % (45-73); Platelet Count 183 X10*3/uL (160-400); Red Blood Count 5.15 X10*6/uL (4.20-5.50); Red Cell Distribution Width 12.8 % (11.0-16.0)
[2022-09-08 16:18] LABS: Clozapine (Clozaril) 142 mcg/L; Norclozapine 56 mcg/L (25-400)
== END 2022-09-05 11:31 | disposition home or self-care (01) ==
LOC: HO.LABR 11:30
PROVIDERS: PCP Internal Medicine; Visit Provider Clinical Nurse Specialist Psychiatric/Mental Health, Adult
DX: Z79.899 Other long term (current) drug therapy (principal)
CPT/HCPCS: 36415; 80159; 85025

== ENCOUNTER 2022-10-03 15:15 | Outpatient (REF) | payer MEDICARE, MEDICAID, SELFPAY ==
[2022-10-03 15:47] LABS: MANUAL DIFF FLAG NO
[2022-10-03 16:02] LABS: Basophils Percent Auto 0.3 % (0-2); Eosinophils Absolute Auto 0.1 X10*3/uL (0.0-0.4); Eosinophils Percent Auto 0.8 % (0-4); Hematocrit 47.9 % (37.0-47.0); Hemoglobin 15.7 g/dl (12.0-16.0); Imm Gran Abs Auto 0.04 X10*3/uL (0.00-0.03); Imm Gran Pct Auto 0.5 % (0.0-0.4); Lymphocytes Absolute Auto 3.5 X10*3/uL (1.2-4.9); Lymphocytes Percent Auto 40.6 % (20-40); Mean Corpuscular HGB Conc 32.8 g/dl (31.0-35.0); Mean Corpuscular Hemoglobin 30.1 pg (27.0-33.0); Mean Corpuscular Volume 91.8 fL (80.0-98.0); Mean Platelet Volume 10.8 fL (9.4-12.3); Monocytes Absolute Auto 0.7 X10*3/uL (0.1-1.2); Monocytes Percent Auto 7.9 % (2-11); Neut%MD 49.9 %; Neutrophils Absolute Auto 4.3 x10*3/uL (2.0-8.3); Neutrophils Percent Auto 49.9 % (45-73); Platelet Count 174 X10*3/uL (160-400); Red Blood Count 5.22 X10*6/uL (4.20-5.50); Red Cell Distribution Width 13.2 % (11.0-16.0); WBCANC 8.6 X10*3/uL; White Blood Count 8.6 X10*3/uL (4.8-10.8)
== END 2022-10-03 15:16 | disposition home or self-care (01) ==
LOC: HO.LABR 15:15
PROVIDERS: PCP Internal Medicine; Visit Provider Clinical Nurse Specialist Psychiatric/Mental Health, Adult
DX: Z79.899 Other long term (current) drug therapy (principal)
CPT/HCPCS: 36415; 85025

== ENCOUNTER 2022-10-31 13:46 | Outpatient (REF) | payer MEDICARE, MEDICAID, SELFPAY ==
[2022-10-31 14:01] LABS: MANUAL DIFF FLAG NO
[2022-10-31 15:05] LABS: Basophils Percent Auto 0.5 % (0-2); Eosinophils Absolute Auto 0.1 X10*3/uL (0.0-0.4); Eosinophils Percent Auto 0.9 % (0-4); Hematocrit 47.3 % (37.0-47.0); Hemoglobin 15.6 g/dl (12.0-16.0); Imm Gran Abs Auto 0.03 X10*3/uL (0.00-0.03); Imm Gran Pct Auto 0.4 % (0.0-0.4); Lymphocytes Absolute Auto 3.4 X10*3/uL (1.2-4.9); Lymphocytes Percent Auto 41.9 % (20-40); Mean Corpuscular Hemoglobin 30.3 pg (27.0-33.0); Mean Corpuscular Volume 91.8 fL (80.0-98.0); Mean Platelet Volume 11.2 fL (9.4-12.3); Monocytes Absolute Auto 0.6 X10*3/uL (0.1-1.2); Monocytes Percent Auto 7.5 % (2-11); Neutrophils Percent Auto 48.8 % (45-73); Platelet Count 184 X10*3/uL (160-400); Red Blood Count 5.15 X10*6/uL (4.20-5.50); Red Cell Distribution Width 13.2 % (11.0-16.0); White Blood Count 8.2 X10*3/uL (4.8-10.8)
[2022-10-31 15:28] LABS: Valproate 56.4 mcg/mL (50.0-100.0)
[2022-10-31 15:32] LABS: Alanine Aminotransferase 24 U/L (0-31); Albumin Level 4.4 g/dL (3.5-5.0); Alkaline Phosphatase 78 U/L (39-117); Anion Gap 17 (12-20); Aspartate Amino Transferase 14 U/L (5-31); Bilirubin Total 0.3 mg/dL (0.0-1.0); Blood Urea Nitrogen 13 mg/dL (9-16); Calcium 9.9 mg/dL (8.4-10.2); Carbon Dioxide 29 mmol/L (22-29); Chloride 100 mmol/L (96-108); Estimated Glomerular Filt Rate > 60; Glucose Random 126 mg/dL (60-115); Potassium 4.9 mmol/L (3.3-5.1); Sodium 141 mmol/L (135-145); Total Protein 6.8 g/dL (6.5-8.0)
[2022-11-03 06:48] LABS: Clozapine (Clozaril) 181 mcg/L; Norclozapine 73 mcg/L (25-400)
== END 2022-10-31 13:47 | disposition home or self-care (01) ==
LOC: HO.LAB 13:46
PROVIDERS: PCP Internal Medicine; Visit Provider Clinical Nurse Specialist Psychiatric/Mental Health, Adult
DX: Z79.899 Other long term (current) drug therapy (principal)
CPT/HCPCS: 36415; 80053; 80159; 80164; 85025

== ENCOUNTER 2022-11-28 12:38 | Outpatient (REF) | payer MEDICARE, MEDICAID, SELFPAY ==
[2022-11-28 12:50] LABS: MANUAL DIFF FLAG NO
[2022-11-28 13:08] LABS: Basophils Percent Auto 0.5 % (0-2); Eosinophils Absolute Auto 0.1 X10*3/uL (0.0-0.4); Eosinophils Percent Auto 1.4 % (0-4); Hematocrit 46.7 % (37.0-47.0); Hemoglobin 15.5 g/dl (12.0-16.0); Imm Gran Abs Auto 0.05 X10*3/uL (0.00-0.03); Imm Gran Pct Auto 0.6 % (0.0-0.4); Lymphocytes Absolute Auto 3.5 X10*3/uL (1.2-4.9); Lymphocytes Percent Auto 44.4 % (20-40); Mean Corpuscular HGB Conc 33.2 g/dl (31.0-35.0); Mean Corpuscular Hemoglobin 30.6 pg (27.0-33.0); Mean Corpuscular Volume 92.3 fL (80.0-98.0); Mean Platelet Volume 10.9 fL (9.4-12.3); Monocytes Absolute Auto 0.6 X10*3/uL (0.1-1.2); Monocytes Percent Auto 7.5 % (2-11); Neutrophils Absolute Auto 3.6 x10*3/uL (2.0-8.3); Neutrophils Percent Auto 45.6 % (45-73); Platelet Count 181 X10*3/uL (160-400); Red Blood Count 5.06 X10*6/uL (4.20-5.50); Red Cell Distribution Width 13.2 % (11.0-16.0); White Blood Count 7.9 X10*3/uL (4.8-10.8)
== END 2022-11-28 12:39 | disposition home or self-care (01) ==
LOC: HO.LABR 12:38
PROVIDERS: Visit Provider Clinical Nurse Specialist Psychiatric/Mental Health, Adult
DX: Z79.899 Other long term (current) drug therapy (principal)
CPT/HCPCS: 36415; 85025

== ENCOUNTER 2022-12-26 13:07 | Outpatient (REF) | payer MEDICARE, MEDICAID, SELFPAY ==
[2022-12-26 13:19] LABS: MANUAL DIFF FLAG NO
[2022-12-26 14:14] LABS: Basophils Percent Auto 0.4 % (0-2); Eosinophils Absolute Auto 0.1 X10*3/uL (0.0-0.4); Eosinophils Percent Auto 1.1 % (0-4); Hemoglobin 15.9 g/dl (12.0-16.0); Imm Gran Abs Auto 0.02 X10*3/uL (0.00-0.03); Imm Gran Pct Auto 0.2 % (0.0-0.4); Lymphocytes Absolute Auto 3.4 X10*3/uL (1.2-4.9); Lymphocytes Percent Auto 41.9 % (20-40); Mean Corpuscular HGB Conc 33.1 g/dl (31.0-35.0); Mean Corpuscular Hemoglobin 30.2 pg (27.0-33.0); Mean Corpuscular Volume 91.1 fL (80.0-98.0); Mean Platelet Volume 10.7 fL (9.4-12.3); Monocytes Absolute Auto 0.6 X10*3/uL (0.1-1.2); Monocytes Percent Auto 7.4 % (2-11); Platelet Count 178 X10*3/uL (160-400); Red Blood Count 5.27 X10*6/uL (4.20-5.50); Red Cell Distribution Width 13.2 % (11.0-16.0); White Blood Count 8.2 X10*3/uL (4.8-10.8)
== END 2022-12-26 13:08 | disposition home or self-care (01) ==
LOC: HO.LABR 13:07
PROVIDERS: PCP Internal Medicine; Visit Provider Clinical Nurse Specialist Psychiatric/Mental Health, Adult
DX: Z79.899 Other long term (current) drug therapy (principal)
CPT/HCPCS: 36415; 85025

== ENCOUNTER 2023-01-23 14:32 | Outpatient (REF) | payer MEDICARE, MEDICAID, SELFPAY ==
[2023-01-23 14:52] LABS: MANUAL DIFF FLAG NO
[2023-01-23 15:16] LABS: Basophils Percent Auto 0.5 % (0-2); Eosinophils Absolute Auto 0.1 X10*3/uL (0.0-0.4); Eosinophils Percent Auto 0.7 % (0-4); Hematocrit 50.4 % (37.0-47.0); Hemoglobin 16.3 g/dl (12.0-16.0); Imm Gran Abs Auto 0.03 X10*3/uL (0.00-0.03); Imm Gran Pct Auto 0.4 % (0.0-0.4); Lymphocytes Absolute Auto 3.4 X10*3/uL (1.2-4.9); Lymphocytes Percent Auto 40.7 % (20-40); Mean Corpuscular HGB Conc 32.3 g/dl (31.0-35.0); Mean Corpuscular Hemoglobin 30.4 pg (27.0-33.0); Mean Corpuscular Volume 93.9 fL (80.0-98.0); Mean Platelet Volume 11.2 fL (9.4-12.3); Monocytes Absolute Auto 0.7 X10*3/uL (0.1-1.2); Monocytes Percent Auto 7.8 % (2-11); Neutrophils Absolute Auto 4.2 x10*3/uL (2.0-8.3); Neutrophils Percent Auto 49.9 % (45-73); Platelet Count 174 X10*3/uL (160-400); Red Blood Count 5.37 X10*6/uL (4.20-5.50); Red Cell Distribution Width 13.2 % (11.0-16.0); White Blood Count 8.3 X10*3/uL (4.8-10.8)
== END 2023-01-23 14:33 | disposition home or self-care (01) ==
LOC: HO.LABR 14:32
PROVIDERS: Visit Provider Clinical Nurse Specialist Psychiatric/Mental Health, Adult
DX: Z79.899 Other long term (current) drug therapy (principal)
CPT/HCPCS: 36415; 85025

== ENCOUNTER 2023-02-21 10:34 | Outpatient (REF) | payer MEDICARE, MEDICAID, SELFPAY ==
[2023-02-21 10:45] LABS: MANUAL DIFF FLAG NO
[2023-02-21 12:53] LABS: Basophils Percent Auto 0.5 % (0-2); Eosinophils Absolute Auto 0.1 X10*3/uL (0.0-0.4); Eosinophils Percent Auto 0.7 % (0-4); Hematocrit 49.1 % (37.0-47.0); Imm Gran Abs Auto 0.03 X10*3/uL (0.00-0.03); Imm Gran Pct Auto 0.4 % (0.0-0.4); Lymphocytes Absolute Auto 3.8 X10*3/uL (1.2-4.9); Lymphocytes Percent Auto 45.8 % (20-40); Mean Corpuscular HGB Conc 32.6 g/dl (31.0-35.0); Mean Corpuscular Hemoglobin 30.6 pg (27.0-33.0); Mean Corpuscular Volume 93.9 fL (80.0-98.0); Mean Platelet Volume 11.9 fL (9.4-12.3); Monocytes Absolute Auto 0.6 X10*3/uL (0.1-1.2); Monocytes Percent Auto 7.6 % (2-11); Neutrophils Absolute Auto 3.7 x10*3/uL (2.0-8.3); Platelet Count 172 X10*3/uL (160-400); Red Blood Count 5.23 X10*6/uL (4.20-5.50); Red Cell Distribution Width 13.1 % (11.0-16.0); White Blood Count 8.3 X10*3/uL (4.8-10.8)
== END 2023-02-21 10:35 | disposition home or self-care (01) ==
LOC: HO.LABR 10:34
PROVIDERS: Visit Provider Clinical Nurse Specialist Psychiatric/Mental Health, Adult
DX: Z79.899 Other long term (current) drug therapy (principal)
CPT/HCPCS: 36415; 85025

== ENCOUNTER 2023-03-20 14:46 | Outpatient (REF) | payer MEDICARE, MEDICAID, SELFPAY ==
[2023-03-20 14:56] LABS: MANUAL DIFF FLAG NO
[2023-03-20 15:41] LABS: Basophils Percent Auto 0.5 % (0-2); Eosinophils Absolute Auto 0.1 X10*3/uL (0.0-0.4); Eosinophils Percent Auto 0.9 % (0-4); Hematocrit 50.4 % (37.0-47.0); Hemoglobin 16.5 g/dl (12.0-16.0); Imm Gran Abs Auto 0.03 X10*3/uL (0.00-0.03); Imm Gran Pct Auto 0.4 % (0.0-0.4); Lymphocytes Absolute Auto 3.1 X10*3/uL (1.2-4.9); Lymphocytes Percent Auto 36.4 % (20-40); Mean Corpuscular HGB Conc 32.7 g/dl (31.0-35.0); Mean Corpuscular Hemoglobin 30.1 pg (27.0-33.0); Mean Platelet Volume 10.8 fL (9.4-12.3); Monocytes Absolute Auto 0.7 X10*3/uL (0.1-1.2); Monocytes Percent Auto 8.1 % (2-11); Neut%MD 53.7 %; Neutrophils Absolute Auto 4.6 x10*3/uL (2.0-8.3); Neutrophils Percent Auto 53.7 % (45-73); Platelet Count 177 X10*3/uL (160-400); Red Blood Count 5.48 X10*6/uL (4.20-5.50); Red Cell Distribution Width 13.5 % (11.0-16.0); WBCANC 8.5 X10*3/uL; White Blood Count 8.5 X10*3/uL (4.8-10.8)
[2023-03-23 23:13] LABS: Clozapine (Clozaril) 151 mcg/L; Norclozapine 64 mcg/L (25-400)
== END 2023-03-20 14:47 | disposition home or self-care (01) ==
LOC: HO.LABR 14:46
PROVIDERS: Visit Provider Clinical Nurse Specialist Psychiatric/Mental Health, Adult
DX: Z79.899 Other long term (current) drug therapy (principal)
CPT/HCPCS: 36415; 80159; 85025

== ENCOUNTER 2023-04-17 14:58 | Outpatient (REF) | payer MEDICARE, MEDICAID, SELFPAY ==
[2023-04-17 15:11] LABS: MANUAL DIFF FLAG NO
[2023-04-17 15:44] LABS: Basophils Percent Auto 0.4 % (0-2); Eosinophils Absolute Auto 0.1 X10*3/uL (0.0-0.4); Hematocrit 49.3 % (37.0-47.0); Hemoglobin 16.1 g/dl (12.0-16.0); Imm Gran Abs Auto 0.03 X10*3/uL (0.00-0.03); Imm Gran Pct Auto 0.4 % (0.0-0.4); Lymphocytes Absolute Auto 3.6 X10*3/uL (1.2-4.9); Mean Corpuscular HGB Conc 32.7 g/dl (31.0-35.0); Mean Corpuscular Hemoglobin 30.2 pg (27.0-33.0); Mean Corpuscular Volume 92.5 fL (80.0-98.0); Mean Platelet Volume 11.1 fL (9.4-12.3); Monocytes Absolute Auto 0.6 X10*3/uL (0.1-1.2); Monocytes Percent Auto 7.7 % (2-11); Neutrophils Absolute Auto 3.8 x10*3/uL (2.0-8.3); Neutrophils Percent Auto 46.5 % (45-73); Platelet Count 180 X10*3/uL (160-400); Red Blood Count 5.33 X10*6/uL (4.20-5.50); Red Cell Distribution Width 13.8 % (11.0-16.0); White Blood Count 8.2 X10*3/uL (4.8-10.8)
== END 2023-04-17 14:59 | disposition home or self-care (01) ==
LOC: HO.LABR 14:58
PROVIDERS: PCP Internal Medicine; Visit Provider Clinical Nurse Specialist Psychiatric/Mental Health, Adult
DX: Z79.899 Other long term (current) drug therapy (principal)
CPT/HCPCS: 36415; 85025

== ENCOUNTER 2023-05-15 15:03 | Outpatient (REF) | payer MEDICARE, MEDICAID, SELFPAY ==
[2023-05-15 15:14] LABS: MANUAL DIFF FLAG NO
[2023-05-15 15:32] LABS: Basophils Percent Auto 0.5 % (0-2); Eosinophils Absolute Auto 0.1 X10*3/uL (0.0-0.4); Eosinophils Percent Auto 1.2 % (0-4); Hemoglobin 15.8 g/dl (12.0-16.0); Imm Gran Abs Auto 0.02 X10*3/uL (0.00-0.03); Imm Gran Pct Auto 0.2 % (0.0-0.4); Lymphocytes Absolute Auto 3.9 X10*3/uL (1.2-4.9); Lymphocytes Percent Auto 44.8 % (20-40); Mean Corpuscular HGB Conc 32.9 g/dl (31.0-35.0); Mean Corpuscular Hemoglobin 30.2 pg (27.0-33.0); Mean Corpuscular Volume 91.6 fL (80.0-98.0); Mean Platelet Volume 10.7 fL (9.4-12.3); Monocytes Absolute Auto 0.6 X10*3/uL (0.1-1.2); Neutrophils Percent Auto 46.3 % (45-73); Platelet Count 170 X10*3/uL (160-400); Red Blood Count 5.24 X10*6/uL (4.20-5.50); Red Cell Distribution Width 13.5 % (11.0-16.0); White Blood Count 8.7 X10*3/uL (4.8-10.8)
== END 2023-05-15 15:04 | disposition home or self-care (01) ==
LOC: HO.LABR 15:03
PROVIDERS: PCP Internal Medicine; Visit Provider Clinical Nurse Specialist Psychiatric/Mental Health, Adult
DX: Z79.899 Other long term (current) drug therapy (principal)
CPT/HCPCS: 36415; 85025

== ENCOUNTER 2023-06-12 16:46 | Outpatient (REF) | payer MEDICARE, MEDICAID, SELFPAY ==
[2023-06-12 17:01] LABS: MANUAL DIFF FLAG NO
[2023-06-12 18:06] LABS: Basophils Absolute Auto 0.1 X10*3/uL (0.0-0.2); Basophils Percent Auto 0.5 % (0-2); Eosinophils Absolute Auto 0.1 X10*3/uL (0.0-0.4); Eosinophils Percent Auto 0.9 % (0-4); Hematocrit 47.6 % (37.0-47.0); Hemoglobin 15.8 g/dl (12.0-16.0); Imm Gran Abs Auto 0.04 X10*3/uL (0.00-0.03); Imm Gran Pct Auto 0.4 % (0.0-0.4); Lymphocytes Absolute Auto 3.9 X10*3/uL (1.2-4.9); Mean Corpuscular HGB Conc 33.2 g/dl (31.0-35.0); Mean Corpuscular Volume 93.3 fL (80.0-98.0); Mean Platelet Volume 11.6 fL (9.4-12.3); Monocytes Absolute Auto 0.7 X10*3/uL (0.1-1.2); Monocytes Percent Auto 7.5 % (2-11); Neutrophils Absolute Auto 4.9 x10*3/uL (2.0-8.3); Neutrophils Percent Auto 50.7 % (45-73); Platelet Count 178 X10*3/uL (160-400); Red Cell Distribution Width 13.4 % (11.0-16.0); White Blood Count 9.7 X10*3/uL (4.8-10.8)
== END 2023-06-12 16:47 | disposition home or self-care (01) ==
LOC: HO.LABR 16:46
PROVIDERS: PCP Internal Medicine; Visit Provider Clinical Nurse Specialist Psychiatric/Mental Health, Adult
DX: Z79.899 Other long term (current) drug therapy (principal)
CPT/HCPCS: 36415; 85025

== ENCOUNTER 2023-07-10 16:41 | Outpatient (REF) | payer MEDICARE, MEDICAID, SELFPAY ==
[2023-07-10 16:51] LABS: MANUAL DIFF FLAG NO
[2023-07-10 16:59] LABS: Basophils Percent Auto 0.4 % (0-2); Eosinophils Absolute Auto 0.1 X10*3/uL (0.0-0.4); Hematocrit 47.3 % (37.0-47.0); Hemoglobin 16.1 g/dl (12.0-16.0); Imm Gran Abs Auto 0.04 X10*3/uL (0.00-0.03); Imm Gran Pct Auto 0.4 % (0.0-0.4); Lymphocytes Absolute Auto 4.2 X10*3/uL (1.2-4.9); Lymphocytes Percent Auto 41.1 % (20-40); Mean Corpuscular Hemoglobin 31.3 pg (27.0-33.0); Mean Corpuscular Volume 91.8 fL (80.0-98.0); Mean Platelet Volume 10.9 fL (9.4-12.3); Monocytes Absolute Auto 0.6 X10*3/uL (0.1-1.2); Neut%MD 51.1 %; Neutrophils Absolute Auto 5.2 x10*3/uL (2.0-8.3); Neutrophils Percent Auto 51.1 % (45-73); Platelet Count 189 X10*3/uL (160-400); Red Blood Count 5.15 X10*6/uL (4.20-5.50); Red Cell Distribution Width 13.3 % (11.0-16.0); WBCANC 10.1 X10*3/uL; White Blood Count 10.1 X10*3/uL (4.8-10.8)
== END 2023-07-10 16:42 | disposition home or self-care (01) ==
LOC: HO.LABR 16:41
PROVIDERS: PCP Internal Medicine; Visit Provider Clinical Nurse Specialist Psychiatric/Mental Health, Adult
DX: Z79.899 Other long term (current) drug therapy (principal)
CPT/HCPCS: 36415; 85025

== ENCOUNTER 2023-09-04 16:36 | Outpatient (REF) | payer MEDICARE, MEDICAID, SELFPAY ==
[2023-09-04 16:47] LABS: MANUAL DIFF FLAG NO
[2023-09-04 17:07] LABS: Basophils Percent Auto 0.4 % (0-2); Eosinophils Absolute Auto 0.1 X10*3/uL (0.0-0.4); Eosinophils Percent Auto 0.8 % (0-4); Hematocrit 51.1 % (37.0-47.0); Hemoglobin 16.5 g/dl (12.0-16.0); Imm Gran Abs Auto 0.07 X10*3/uL (0.00-0.03); Imm Gran Pct Auto 0.8 % (0.0-0.4); Lymphocytes Absolute Auto 3.9 X10*3/uL (1.2-4.9); Lymphocytes Percent Auto 42.9 % (20-40); Mean Corpuscular HGB Conc 32.3 g/dl (31.0-35.0); Mean Corpuscular Hemoglobin 29.7 pg (27.0-33.0); Mean Corpuscular Volume 91.9 fL (80.0-98.0); Mean Platelet Volume 10.4 fL (9.4-12.3); Monocytes Absolute Auto 0.9 X10*3/uL (0.1-1.2); Monocytes Percent Auto 9.6 % (2-11); Neut%MD 45.5 %; Neutrophils Absolute Auto 4.1 x10*3/uL (2.0-8.3); Neutrophils Percent Auto 45.5 % (45-73); Platelet Count 305 X10*3/uL (160-400); Red Blood Count 5.56 X10*6/uL (4.20-5.50); Red Cell Distribution Width 13.2 % (11.0-16.0); WBCANC 9.1 X10*3/uL; White Blood Count 9.1 X10*3/uL (4.8-10.8)
== END 2023-09-04 16:37 | disposition home or self-care (01) ==
LOC: HO.LABR 16:36
PROVIDERS: Visit Provider Clinical Nurse Specialist Psychiatric/Mental Health, Adult
DX: Z79.899 Other long term (current) drug therapy (principal)
CPT/HCPCS: 36415; 85025

== ENCOUNTER 2023-10-03 14:57 | Outpatient (REF) | payer MEDICARE, MEDICAID, SELFPAY ==
[2023-10-03 15:13] LABS: MANUAL DIFF FLAG NO
[2023-10-03 15:35] LABS: Basophils Absolute Auto 0.1 X10*3/uL (0.0-0.2); Basophils Percent Auto 0.5 % (0-2); Eosinophils Absolute Auto 0.1 X10*3/uL (0.0-0.4); Eosinophils Percent Auto 0.9 % (0-4); Hematocrit 48.3 % (37.0-47.0); Hemoglobin 15.8 g/dl (12.0-16.0); Imm Gran Abs Auto 0.03 X10*3/uL (0.00-0.03); Imm Gran Pct Auto 0.3 % (0.0-0.4); Lymphocytes Percent Auto 39.6 % (20-40); Mean Corpuscular HGB Conc 32.7 g/dl (31.0-35.0); Mean Corpuscular Hemoglobin 30.4 pg (27.0-33.0); Mean Corpuscular Volume 93.1 fL (80.0-98.0); Mean Platelet Volume 10.8 fL (9.4-12.3); Monocytes Absolute Auto 0.9 X10*3/uL (0.1-1.2); Monocytes Percent Auto 9.3 % (2-11); Neutrophils Percent Auto 49.4 % (45-73); Platelet Count 186 X10*3/uL (160-400); Red Blood Count 5.19 X10*6/uL (4.20-5.50); Red Cell Distribution Width 13.7 % (11.0-16.0); White Blood Count 10.1 X10*3/uL (4.8-10.8)
== END 2023-10-03 14:58 | disposition home or self-care (01) ==
LOC: HO.LABR 14:57
PROVIDERS: Visit Provider Clinical Nurse Specialist Psychiatric/Mental Health, Adult
DX: Z79.899 Other long term (current) drug therapy (principal)
CPT/HCPCS: 36415; 85025

== ENCOUNTER 2023-10-30 16:40 | Outpatient (REF) | payer MEDICARE, MEDICAID, SELFPAY ==
[2023-10-30 16:57] LABS: MANUAL DIFF FLAG NO
[2023-10-30 17:34] LABS: Basophils Percent Auto 0.3 % (0-2); Eosinophils Absolute Auto 0.1 X10*3/uL (0.0-0.4); Eosinophils Percent Auto 0.7 % (0-4); Hematocrit 48.4 % (37.0-47.0); Hemoglobin 16.2 g/dl (12.0-16.0); Imm Gran Abs Auto 0.04 X10*3/uL (0.00-0.03); Imm Gran Pct Auto 0.4 % (0.0-0.4); Lymphocytes Absolute Auto 4.4 X10*3/uL (1.2-4.9); Lymphocytes Percent Auto 43.9 % (20-40); Mean Corpuscular HGB Conc 33.5 g/dl (31.0-35.0); Mean Corpuscular Volume 89.6 fL (80.0-98.0); Mean Platelet Volume 10.7 fL (9.4-12.3); Monocytes Absolute Auto 0.7 X10*3/uL (0.1-1.2); Monocytes Percent Auto 7.2 % (2-11); Neut%MD 47.5 %; Neutrophils Absolute Auto 4.8 x10*3/uL (2.0-8.3); Neutrophils Percent Auto 47.5 % (45-73); Platelet Count 171 X10*3/uL (160-400); Red Cell Distribution Width 13.4 % (11.0-16.0)
[2023-10-30 18:12] LABS: Valproate 53.1 mcg/mL (50.0-100.0)
[2023-10-30 18:16] LABS: Alanine Aminotransferase 16 U/L (0-31); Albumin Level 4.4 g/dL (3.5-5.0); Alkaline Phosphatase 62 U/L (39-117); Anion Gap 17 (12-20); Aspartate Amino Transferase 11 U/L (5-31); Bilirubin Total 0.2 mg/dL (0.0-1.0); Blood Urea Nitrogen 10 mg/dL (9-16); Calcium 9.6 mg/dL (8.4-10.2); Carbon Dioxide 30 mmol/L (22-29); Chloride 98 mmol/L (96-108); Estimated Glomerular Filt Rate > 60; Glucose Random 136 mg/dL (60-115); Potassium 4.1 mmol/L (3.3-5.1); Sodium 141 mmol/L (135-145); Total Protein 7.1 g/dL (6.5-8.0)
== END 2023-10-30 16:41 | disposition home or self-care (01) ==
LOC: HO.LABR 16:40
PROVIDERS: Visit Provider Clinical Nurse Specialist Psychiatric/Mental Health, Adult
DX: Z79.899 Other long term (current) drug therapy (principal)
CPT/HCPCS: 36415; 80053; 80164; 85025

== ENCOUNTER 2023-11-27 14:54 | Outpatient (REF) | payer MEDICARE, MEDICAID, SELFPAY ==
[2023-11-27 15:08] LABS: MANUAL DIFF FLAG NO
[2023-11-27 16:12] LABS: Basophils Percent Auto 0.3 % (0-2); Eosinophils Absolute Auto 0.1 X10*3/uL (0.0-0.4); Eosinophils Percent Auto 0.9 % (0-4); Hematocrit 46.4 % (37.0-47.0); Hemoglobin 15.5 g/dl (12.0-16.0); Imm Gran Abs Auto 0.02 X10*3/uL (0.00-0.03); Imm Gran Pct Auto 0.2 % (0.0-0.4); Lymphocytes Absolute Auto 4.4 X10*3/uL (1.2-4.9); Lymphocytes Percent Auto 49.2 % (20-40); Mean Corpuscular HGB Conc 33.4 g/dl (31.0-35.0); Mean Corpuscular Hemoglobin 29.9 pg (27.0-33.0); Mean Corpuscular Volume 89.4 fL (80.0-98.0); Mean Platelet Volume 11.5 fL (9.4-12.3); Monocytes Absolute Auto 0.7 X10*3/uL (0.1-1.2); Monocytes Percent Auto 7.7 % (2-11); Neutrophils Absolute Auto 3.7 x10*3/uL (2.0-8.3); Neutrophils Percent Auto 41.7 % (45-73); Platelet Count 188 X10*3/uL (160-400); Red Blood Count 5.19 X10*6/uL (4.20-5.50); Red Cell Distribution Width 13.8 % (11.0-16.0); White Blood Count 8.9 X10*3/uL (4.8-10.8)
== END 2023-11-27 14:55 | disposition home or self-care (01) ==
LOC: HO.LABR 14:54
PROVIDERS: Visit Provider Clinical Nurse Specialist Psychiatric/Mental Health, Adult
DX: Z79.899 Other long term (current) drug therapy (principal)
CPT/HCPCS: 36415; 85025

== ENCOUNTER 2023-12-28 15:16 | Outpatient (REF) | payer MEDICARE, MEDICAID, SELFPAY ==
[2023-12-28 15:33] LABS: MANUAL DIFF FLAG NO
[2023-12-28 15:42] LABS: Basophils Percent Auto 0.4 % (0-2); Eosinophils Absolute Auto 0.1 X10*3/uL (0.0-0.4); Eosinophils Percent Auto 0.8 % (0-4); Hematocrit 45.2 % (37.0-47.0); Hemoglobin 15.5 g/dl (12.0-16.0); Imm Gran Abs Auto 0.04 X10*3/uL (0.00-0.03); Imm Gran Pct Auto 0.5 % (0.0-0.4); Lymphocytes Absolute Auto 3.8 X10*3/uL (1.2-4.9); Mean Corpuscular HGB Conc 34.3 g/dl (31.0-35.0); Mean Corpuscular Hemoglobin 30.9 pg (27.0-33.0); Mean Corpuscular Volume 90.2 fL (80.0-98.0); Mean Platelet Volume 10.2 fL (9.4-12.3); Monocytes Absolute Auto 0.5 X10*3/uL (0.1-1.2); Monocytes Percent Auto 6.9 % (2-11); Neutrophils Absolute Auto 3.1 x10*3/uL (2.0-8.3); Neutrophils Percent Auto 41.4 % (45-73); Platelet Count 188 X10*3/uL (160-400); Red Blood Count 5.01 X10*6/uL (4.20-5.50); Red Cell Distribution Width 13.7 % (11.0-16.0); White Blood Count 7.6 X10*3/uL (4.8-10.8)
== END 2023-12-28 15:17 | disposition home or self-care (01) ==
LOC: HO.LAB 15:16
PROVIDERS: PCP Internal Medicine; Visit Provider Clinical Nurse Specialist Psychiatric/Mental Health, Adult
DX: Z79.899 Other long term (current) drug therapy (principal)
CPT/HCPCS: 36415; 85025

== ENCOUNTER 2024-01-22 14:48 | Outpatient (REF) | payer MEDICARE, MEDICAID, SELFPAY ==
[2024-01-22 15:09] LABS: MANUAL DIFF FLAG NO
[2024-01-22 15:46] LABS: Basophils Percent Auto 0.5 % (0-2); Eosinophils Absolute Auto 0.1 X10*3/uL (0.0-0.4); Eosinophils Percent Auto 1.2 % (0-4); Hematocrit 45.3 % (37.0-47.0); Hemoglobin 15.2 g/dl (12.0-16.0); Imm Gran Abs Auto 0.04 X10*3/uL (0.00-0.03); Imm Gran Pct Auto 0.5 % (0.0-0.4); Lymphocytes Absolute Auto 4.2 X10*3/uL (1.2-4.9); Lymphocytes Percent Auto 49.4 % (20-40); Mean Corpuscular HGB Conc 33.6 g/dl (31.0-35.0); Mean Corpuscular Hemoglobin 30.6 pg (27.0-33.0); Mean Corpuscular Volume 91.1 fL (80.0-98.0); Mean Platelet Volume 10.9 fL (9.4-12.3); Monocytes Absolute Auto 0.6 X10*3/uL (0.1-1.2); Monocytes Percent Auto 6.9 % (2-11); Neut%MD 41.5 %; Neutrophils Absolute Auto 3.5 x10*3/uL (2.0-8.3); Neutrophils Percent Auto 41.5 % (45-73); Platelet Count 194 X10*3/uL (160-400); Red Blood Count 4.97 X10*6/uL (4.20-5.50); Red Cell Distribution Width 13.4 % (11.0-16.0); WBCANC 8.5 X10*3/uL; White Blood Count 8.5 X10*3/uL (4.8-10.8)
== END 2024-01-22 14:49 | disposition home or self-care (01) ==
LOC: HO.LAB 14:48
PROVIDERS: Visit Provider Clinical Nurse Specialist Psychiatric/Mental Health, Adult
DX: Z79.899 Other long term (current) drug therapy (principal)
CPT/HCPCS: 36415; 85025

== ENCOUNTER 2024-02-19 12:39 | Outpatient (REF) | payer MEDICARE, MEDICAID, SELFPAY ==
[2024-02-19 13:08] LABS: MANUAL DIFF FLAG NO
[2024-02-19 13:45] LABS: Basophils Percent Auto 0.4 % (0-2); Eosinophils Absolute Auto 0.1 X10*3/uL (0.0-0.4); Eosinophils Percent Auto 0.9 % (0-4); Hemoglobin 15.5 g/dl (12.0-16.0); Imm Gran Abs Auto 0.02 X10*3/uL (0.00-0.03); Imm Gran Pct Auto 0.2 % (0.0-0.4); Lymphocytes Absolute Auto 4.1 X10*3/uL (1.2-4.9); Lymphocytes Percent Auto 43.2 % (20-40); Mean Corpuscular HGB Conc 33.7 g/dl (31.0-35.0); Mean Corpuscular Hemoglobin 31.1 pg (27.0-33.0); Mean Corpuscular Volume 92.2 fL (80.0-98.0); Monocytes Absolute Auto 0.7 X10*3/uL (0.1-1.2); Monocytes Percent Auto 7.1 % (2-11); Neutrophils Absolute Auto 4.5 x10*3/uL (2.0-8.3); Neutrophils Percent Auto 48.2 % (45-73); Platelet Count 194 X10*3/uL (160-400); Red Blood Count 4.99 X10*6/uL (4.20-5.50); Red Cell Distribution Width 13.3 % (11.0-16.0); White Blood Count 9.4 X10*3/uL (4.8-10.8)
== END 2024-02-19 12:40 | disposition home or self-care (01) ==
LOC: HO.LABR 12:39
PROVIDERS: PCP Internal Medicine; Visit Provider Clinical Nurse Specialist Psychiatric/Mental Health, Adult
DX: Z79.899 Other long term (current) drug therapy (principal)
CPT/HCPCS: 36415; 85025

== ENCOUNTER 2024-03-18 15:22 | Outpatient (REF) | payer MEDICARE, MEDICAID, SELFPAY ==
[2024-03-18 15:37] LABS: MANUAL DIFF FLAG NO
[2024-03-18 17:21] LABS: Basophils Percent Auto 0.3 % (0-2); Eosinophils Absolute Auto 0.1 X10*3/uL (0.0-0.4); Eosinophils Percent Auto 0.8 % (0-4); Hematocrit 44.6 % (37.0-47.0); Hemoglobin 15.1 g/dl (12.0-16.0); Imm Gran Abs Auto 0.03 X10*3/uL (0.00-0.03); Imm Gran Pct Auto 0.3 % (0.0-0.4); Lymphocytes Percent Auto 42.9 % (20-40); Mean Corpuscular HGB Conc 33.9 g/dl (31.0-35.0); Mean Corpuscular Hemoglobin 30.6 pg (27.0-33.0); Mean Corpuscular Volume 90.5 fL (80.0-98.0); Mean Platelet Volume 10.9 fL (9.4-12.3); Monocytes Absolute Auto 0.7 X10*3/uL (0.1-1.2); Monocytes Percent Auto 7.7 % (2-11); Neutrophils Absolute Auto 4.5 x10*3/uL (2.0-8.3); Platelet Count 209 X10*3/uL (160-400); Red Blood Count 4.93 X10*6/uL (4.20-5.50); Red Cell Distribution Width 12.6 % (11.0-16.0); White Blood Count 9.3 X10*3/uL (4.8-10.8)
== END 2024-03-18 15:23 | disposition home or self-care (01) ==
LOC: HO.LABR 15:22
PROVIDERS: PCP Internal Medicine; Visit Provider Clinical Nurse Specialist Psychiatric/Mental Health, Adult
DX: Z79.899 Other long term (current) drug therapy (principal)
CPT/HCPCS: 36415; 85025

== ENCOUNTER 2024-04-22 14:06 | Outpatient (REF) | payer MEDICARE, MEDICAID, SELFPAY ==
[2024-04-22 14:34] LABS: MANUAL DIFF FLAG NO
[2024-04-22 15:12] LABS: Basophils Percent Auto 0.5 % (0-2); Eosinophils Absolute Auto 0.1 X10*3/uL (0.0-0.4); Hematocrit 44.7 % (37.0-47.0); Hemoglobin 14.9 g/dl (12.0-16.0); Imm Gran Abs Auto 0.04 X10*3/uL (0.00-0.03); Imm Gran Pct Auto 0.5 % (0.0-0.4); Lymphocytes Absolute Auto 3.7 X10*3/uL (1.2-4.9); Lymphocytes Percent Auto 45.9 % (20-40); Mean Corpuscular HGB Conc 33.3 g/dl (31.0-35.0); Mean Corpuscular Hemoglobin 30.6 pg (27.0-33.0); Mean Corpuscular Volume 91.8 fL (80.0-98.0); Mean Platelet Volume 10.7 fL (9.4-12.3); Monocytes Absolute Auto 0.7 X10*3/uL (0.1-1.2); Monocytes Percent Auto 8.3 % (2-11); Neutrophils Absolute Auto 3.5 x10*3/uL (2.0-8.3); Neutrophils Percent Auto 43.8 % (45-73); Platelet Count 193 X10*3/uL (160-400); Red Blood Count 4.87 X10*6/uL (4.20-5.50); Red Cell Distribution Width 12.6 % (11.0-16.0)
== END 2024-04-22 14:07 | disposition home or self-care (01) ==
LOC: HO.LAB 14:06
PROVIDERS: PCP Internal Medicine; Visit Provider Psychiatry & Neurology Psychiatry
DX: Z79.899 Other long term (current) drug therapy (principal)
CPT/HCPCS: 36415; 85025

== ENCOUNTER 2024-05-20 13:54 | Outpatient (REF) | payer MEDICARE, MEDICAID, SELFPAY ==
[2024-05-20 14:31] LABS: MANUAL DIFF FLAG NO
[2024-05-20 15:10] LABS: Basophils Percent Auto 0.5 % (0-2); Eosinophils Absolute Auto 0.1 X10*3/uL (0.0-0.4); Hemoglobin 14.8 g/dl (12.0-16.0); Imm Gran Abs Auto 0.04 X10*3/uL (0.00-0.03); Imm Gran Pct Auto 0.5 % (0.0-0.4); Lymphocytes Percent Auto 46.1 % (20-40); Mean Corpuscular HGB Conc 33.6 g/dl (31.0-35.0); Mean Corpuscular Volume 92.1 fL (80.0-98.0); Mean Platelet Volume 10.7 fL (9.4-12.3); Monocytes Absolute Auto 0.7 X10*3/uL (0.1-1.2); Monocytes Percent Auto 8.4 % (2-11); Neutrophils Absolute Auto 3.7 x10*3/uL (2.0-8.3); Neutrophils Percent Auto 43.5 % (45-73); Platelet Count 177 X10*3/uL (160-400); Red Blood Count 4.78 X10*6/uL (4.20-5.50); Red Cell Distribution Width 13.3 % (11.0-16.0); White Blood Count 8.6 X10*3/uL (4.8-10.8)
== END 2024-05-20 13:55 | disposition home or self-care (01) ==
LOC: HO.LABR 13:54
PROVIDERS: PCP Internal Medicine; Visit Provider Psychiatry & Neurology Psychiatry
DX: Z79.899 Other long term (current) drug therapy (principal)
CPT/HCPCS: 36415; 85025

== ENCOUNTER 2024-06-10 13:05 | Outpatient (REF) | payer MEDICARE, MEDICAID, SELFPAY ==
[2024-06-10 13:16] LABS: MANUAL DIFF FLAG NO
[2024-06-10 13:57] LABS: Basophils Percent Auto 0.4 % (0-2); Eosinophils Absolute Auto 0.1 X10*3/uL (0.0-0.4); Eosinophils Percent Auto 0.6 % (0-4); Hematocrit 46.4 % (37.0-47.0); Hemoglobin 15.4 g/dl (12.0-16.0); Imm Gran Abs Auto 0.05 X10*3/uL (0.00-0.03); Imm Gran Pct Auto 0.5 % (0.0-0.4); Lymphocytes Absolute Auto 3.8 X10*3/uL (1.2-4.9); Lymphocytes Percent Auto 39.3 % (20-40); Mean Corpuscular HGB Conc 33.2 g/dl (31.0-35.0); Mean Corpuscular Hemoglobin 30.3 pg (27.0-33.0); Mean Corpuscular Volume 91.3 fL (80.0-98.0); Mean Platelet Volume 10.9 fL (9.4-12.3); Monocytes Absolute Auto 0.7 X10*3/uL (0.1-1.2); Monocytes Percent Auto 7.7 % (2-11); Neutrophils Absolute Auto 4.9 x10*3/uL (2.0-8.3); Neutrophils Percent Auto 51.5 % (45-73); Platelet Count 200 X10*3/uL (160-400); Red Blood Count 5.08 X10*6/uL (4.20-5.50); Red Cell Distribution Width 13.1 % (11.0-16.0); White Blood Count 9.6 X10*3/uL (4.8-10.8)
== END 2024-06-10 13:06 | disposition home or self-care (01) ==
LOC: HO.LABR 13:05
PROVIDERS: PCP Internal Medicine; Visit Provider Psychiatry & Neurology Psychiatry
DX: Z79.899 Other long term (current) drug therapy (principal)
CPT/HCPCS: 36415; 85025

== ENCOUNTER 2024-07-09 11:09 | Outpatient (REF) | payer MEDICARE, MEDICAID, SELFPAY ==
[2024-07-09 11:42] LABS: MANUAL DIFF FLAG NO
[2024-07-09 12:02] LABS: Basophils Absolute Auto 0.1 X10*3/uL (0.0-0.2); Basophils Percent Auto 0.6 % (0-2); Eosinophils Absolute Auto 0.1 X10*3/uL (0.0-0.4); Eosinophils Percent Auto 0.6 % (0-4); Hematocrit 44.6 % (37.0-47.0); Hemoglobin 14.8 g/dl (12.0-16.0); Imm Gran Abs Auto 0.05 X10*3/uL (0.00-0.03); Imm Gran Pct Auto 0.6 % (0.0-0.4); Lymphocytes Absolute Auto 3.2 X10*3/uL (1.2-4.9); Lymphocytes Percent Auto 41.3 % (20-40); Mean Corpuscular HGB Conc 33.2 g/dl (31.0-35.0); Mean Corpuscular Hemoglobin 30.4 pg (27.0-33.0); Mean Corpuscular Volume 91.6 fL (80.0-98.0); Mean Platelet Volume 11.3 fL (9.4-12.3); Monocytes Absolute Auto 0.6 X10*3/uL (0.1-1.2); Monocytes Percent Auto 7.2 % (2-11); Neutrophils Absolute Auto 3.9 x10*3/uL (2.0-8.3); Neutrophils Percent Auto 49.7 % (45-73); Platelet Count 181 X10*3/uL (160-400); Red Blood Count 4.87 X10*6/uL (4.20-5.50); Red Cell Distribution Width 13.2 % (11.0-16.0); White Blood Count 7.8 X10*3/uL (4.8-10.8)
== END 2024-07-09 11:10 | disposition home or self-care (01) ==
LOC: HO.LABR 11:09
PROVIDERS: PCP Internal Medicine; Visit Provider Psychiatry & Neurology Psychiatry
DX: Z79.899 Other long term (current) drug therapy (principal)
CPT/HCPCS: 36415; 85025

== ENCOUNTER 2024-08-05 16:17 | Outpatient (REF) | payer MEDICARE, MEDICAID, SELFPAY ==
[2024-08-05 16:38] LABS: MANUAL DIFF FLAG NO
[2024-08-05 17:08] LABS: Basophils Percent Auto 0.4 % (0-2); Eosinophils Absolute Auto 0.1 X10*3/uL (0.0-0.4); Eosinophils Percent Auto 0.6 % (0-4); Hematocrit 46.3 % (37.0-47.0); Hemoglobin 15.4 g/dl (12.0-16.0); Imm Gran Abs Auto 0.05 X10*3/uL (0.00-0.03); Imm Gran Pct Auto 0.5 % (0.0-0.4); Lymphocytes Absolute Auto 4.6 X10*3/uL (1.2-4.9); Lymphocytes Percent Auto 46.3 % (20-40); Mean Corpuscular HGB Conc 33.3 g/dl (31.0-35.0); Mean Corpuscular Hemoglobin 30.6 pg (27.0-33.0); Monocytes Absolute Auto 0.7 X10*3/uL (0.1-1.2); Monocytes Percent Auto 6.7 % (2-11); Neutrophils Absolute Auto 4.5 x10*3/uL (2.0-8.3); Neutrophils Percent Auto 45.5 % (45-73); Platelet Count 172 X10*3/uL (160-400); Red Blood Count 5.03 X10*6/uL (4.20-5.50); Red Cell Distribution Width 13.2 % (11.0-16.0); White Blood Count 9.9 X10*3/uL (4.8-10.8)
== END 2024-08-05 16:18 | disposition home or self-care (01) ==
LOC: HO.LABR 16:17
PROVIDERS: PCP Internal Medicine; Visit Provider Psychiatry & Neurology Psychiatry
DX: Z79.899 Other long term (current) drug therapy (principal)
CPT/HCPCS: 36415; 85025

== ENCOUNTER 2024-09-02 14:49 | Outpatient (REF) | payer MEDICARE, MEDICAID, SELFPAY ==
[2024-09-02 15:00] LABS: MANUAL DIFF FLAG NO
[2024-09-02 15:57] LABS: Basophils Absolute Auto 0.1 X10*3/uL (0.0-0.2); Basophils Percent Auto 0.4 % (0-2); Eosinophils Absolute Auto 0.1 X10*3/uL (0.0-0.4); Eosinophils Percent Auto 0.4 % (0-4); Hematocrit 49.5 % (37.0-47.0); Hemoglobin 16.2 g/dl (12.0-16.0); Imm Gran Abs Auto 0.06 X10*3/uL (0.00-0.03); Imm Gran Pct Auto 0.4 % (0.0-0.4); Lymphocytes Absolute Auto 3.9 X10*3/uL (1.2-4.9); Lymphocytes Percent Auto 28.9 % (20-40); Mean Corpuscular HGB Conc 32.7 g/dl (31.0-35.0); Mean Corpuscular Hemoglobin 29.9 pg (27.0-33.0); Mean Corpuscular Volume 91.3 fL (80.0-98.0); Mean Platelet Volume 11.4 fL (9.4-12.3); Monocytes Absolute Auto 1.1 X10*3/uL (0.1-1.2); Monocytes Percent Auto 7.8 % (2-11); Neutrophils Absolute Auto 8.4 x10*3/uL (2.0-8.3); Neutrophils Percent Auto 62.1 % (45-73); Platelet Count 196 X10*3/uL (160-400); Red Blood Count 5.42 X10*6/uL (4.20-5.50); Red Cell Distribution Width 13.1 % (11.0-16.0); White Blood Count 13.5 X10*3/uL (4.8-10.8)
== END 2024-09-02 14:50 | disposition home or self-care (01) ==
LOC: HO.LABR 14:49
PROVIDERS: Visit Provider Psychiatry & Neurology Psychiatry
DX: Z79.899 Other long term (current) drug therapy (principal)
CPT/HCPCS: 36415; 85025

== ENCOUNTER 2024-09-30 14:38 | Outpatient (REF) | payer MEDICARE, MEDICAID, SELFPAY ==
[2024-09-30 14:52] LABS: MANUAL DIFF FLAG NO
[2024-09-30 15:29] LABS: Basophils Percent Auto 0.5 % (0-2); Eosinophils Absolute Auto 0.1 X10*3/uL (0.0-0.4); Eosinophils Percent Auto 0.9 % (0-4); Hematocrit 49.7 % (37.0-47.0); Hemoglobin 16.5 g/dl (12.0-16.0); Imm Gran Abs Auto 0.02 X10*3/uL (0.00-0.03); Imm Gran Pct Auto 0.2 % (0.0-0.4); Lymphocytes Absolute Auto 3.5 X10*3/uL (1.2-4.9); Lymphocytes Percent Auto 40.8 % (20-40); Mean Corpuscular HGB Conc 33.2 g/dl (31.0-35.0); Mean Corpuscular Hemoglobin 30.2 pg (27.0-33.0); Mean Corpuscular Volume 90.9 fL (80.0-98.0); Monocytes Absolute Auto 0.7 X10*3/uL (0.1-1.2); Monocytes Percent Auto 8.2 % (2-11); Neutrophils Absolute Auto 4.2 x10*3/uL (2.0-8.3); Neutrophils Percent Auto 49.4 % (45-73); Platelet Count 185 X10*3/uL (160-400); Red Blood Count 5.47 X10*6/uL (4.20-5.50); White Blood Count 8.6 X10*3/uL (4.8-10.8)
== END 2024-09-30 14:39 | disposition home or self-care (01) ==
LOC: HO.LABR 14:38
PROVIDERS: Visit Provider Psychiatry & Neurology Psychiatry
DX: Z79.899 Other long term (current) drug therapy (principal)
CPT/HCPCS: 36415; 85025

== ENCOUNTER 2024-10-28 13:17 | Outpatient (REF) | payer MEDICARE, MEDICAID, SELFPAY ==
[2024-10-28 13:32] LABS: MANUAL DIFF FLAG NO
--- OUTSIDE RECORDS SUMMARY | 2024-10-28 13:33 | XMS_ITS | Data Portability ---
Author Organization [facility], Main Office Address [address] [facility] [address] [place] [address] Care Team Providers Care Licensed Chemical Spray Technician Name Role Phone SCOOTER AMADOR Primary Care Provider VIVI COON Psychologist CIERA ROCKWELL Referring Provider [phone] Assessment No assessment recorded. Plan of Treatment Reminders Order Date Submit Date Provider Last Modified By Organization Details Last Modified Time Details Appointments None recorde d. Lab hemoglo bin A1C, fingers tick 2021 022 [email or web address] In-Office Order, Internal Use Only DO Not Attach Compendium DO Not Attach Compendium, Do Not Delete/merge, [id number] 2 14:18:57 HbA1c (hemogl obin A1c), blood 2022 023 [email or web address] [facility], [address], [place] [address], [place], [address], 4 10:48:02 microal bumin, urine 2022 023 [email or web address] [facility], [address], [place] [address], [place], [address], 3 11:57:56 CMP, serum or plasma 2022 023 [email or web address] [facility], [address], [place], [place], [address], 4 10:48:02 lipid panel, serum 2022 023 OMAR [facility], [address], [address], [place], [address], 3 15:18:50 CBC w/ auto diff 2022 023 [email or web address] [facility], [address], [address], [place], [address], 3 11:57:56 hemoglo bin A1C, fingers tick 2022 023 [email or web address] In-Office Order, Internal Use Only DO Not Attach Compendium DO Not Attach Compendium, Do Not Delete/merge, [id number] 3 14:11:57 microal bumin, urine 2022 023 [email or web address] [facility], [address], [address], [place], [address], 3 07:40:42 CMP, serum or plasma 2022 023 [email or web address] [facility], [address], [address], [place], [address], 4 08:06:34 lipid panel, serum 2022 023 OMAR [facility], [address], [address], [place], [address], 4 12:06:18 CBC w/ auto diff 2022 023 [email or web address] [facility], [address], [address], [place], [address], 3 07:40:42 hemoglo bin A1C, fingers tick 2023 024 [email or web address] In-Office Order, Internal Use Only DO Not Attach Compendium DO Not Attach Compendium, Do Not Delete/merge, [id number] 4 15:14:28 microal bumin, urine 2023 024 OMAR [facility], [address] [facility], [facility] [address], [place], [address], 4 12:06:20 LDL, direct, serum 2023 024 OMAR [facility], [address], [place], [address], 4 12:06:19 HDL cholest monalisa, serum 2023 024 [email or web address] [facility], [address] [facility], [facility] [address], [place], [address], 5 09:12:13 CBC w/ auto diff 2023 024 OMAR [facility], [address], [place], [address], 4 12:06:16 BMP, serum or plasma 2023 024 OMAR [facility], [address], [place], [address], 4 12:06:17 TSH, ultra-s ensitiv e, serum 2023 024 OMAR [facility], [address], [place], [address], 4 12:06:21 Referral diabeti c ophthal mology referra l - Type 2 diabete s requiri ng regular eye exams. 2022 023 romero [facility], [address], [place], [address], 4 08:46:58 gastroe nterolo gist referra l - Needs colon cancer screeni ng 2022 023 [email or web address] Not available 3 15:13:27 Procedures colonos copy screeni ng (PROC) 2022 023 In-Office Order, Internal Use Only DO Not Attach Compendium DO Not Attach Compendium, Do Not Delete/merge, [id number] 3 15:13:03 Surgeries None recorde d. Imaging None recorde d. Medication Orders Vitamin C 250 mg tablet 2021 022 [facility] #66106, [address] [place], [id number], 2 14:22:47 metform in 1,000 mg tablet 2021 [facility] #94615, [address] [place] [address], [id number], 2 13:55:17 Jardian ce 25 mg tablet 2021 022 [facility] #07383, [address] [place] [address], [id number], 4 09:05:02 linagli ptin 5 mg tablet 2021 022 [email or web address] [facility] #16124, [address] [place] [address], [id number], 4 12:01:02 Tradjen ta 5 mg tablet 2023 024 [email or web address] [facility] #70507, [address] [place] [address], [id number], 4 14:39:34 Tradjen ta 5 mg tablet 2023 024 [facility] #07608, [address] [place] [address], [id number], 4 15:14:32 Patient TargetsNo targets recorded. Patient Instructions Encounter Date Encounter Id Patient Instructions Last Modified By Organization Details Last Modified Time 08/29/2022 [id number] allergies: care instructions [email or web address] Not available 08/29/2022 14:22:36 managing your allergies: care instructions acennerazzo Not available 08/29/2022 14:22:36 schizophrenia: care instructions acennerazzo Not available 08/29/2022 17:03:18 type 2 diabetes: care instructions acennerazzo Not available 08/29/2022 14:18:57 04/24/2023 [id number] allergies: care instructions acennerazzo Not available 04/24/2023 16:24:27 managing your allergies: care instructions acennerazzo Not available 04/24/2023 16:24:27 schizophrenia: care instructions acennerazzo Not available 04/24/2023 16:24:27 type 2 diabetes: care instructions acennerazzo Not available 04/24/2023 16:24:27 chronic obstructive pulmonary disease (COPD): care instructions acennerazzo Not available 04/24/2023 15:18:47 learning about copd and how to prevent lung infections acennerazzo Not available 04/24/2023 15:18:47 08/07/2023 [id number] deciding about using medicines to quit smoking acennerazzo Not available 08/09/2023 07:40:25 Quitting Tobacco: Care Instructions acennerazzo Not available 08/09/2023 07:40:25 preventing falls: care instructions acennerazzo Not available 08/07/2023 14:11:53 medicare preventive services guide (female 74yrs and under) acennerazzo Not available 08/07/2023 14:11:54 chronic obstructive pulmonary disease (COPD): care instructions acennerazzo Not available 08/09/2023 07:42:00 learning about copd and how to prevent lung infections acennerazzo Not available 08/09/2023 07:42:00 high cholesterol: care instructions acennerazzo Not available 08/09/2023 07:42:00 schizophrenia: care instructions acennerazzo Not available 08/09/2023 07:42:00 type 2 diabetes: care instructions acennerazzo Not available 08/07/2023 14:11:53 learning about colon cancer acennerazzo Not available 08/07/2023 14:15:06 11/23/2023 [id number] allergies: care instructions jthabet Not available 11/23/2023 11:58:22 managing your allergies: care instructions jthabet Not available 11/23/2023 11:58:22 schizophrenia: care instructions jthabet Not available 11/23/2023 11:58:21 type 2 diabetes: care instructions jthabet Not available 11/23/2023 11:58:22 chronic obstructive pulmonary disease (COPD): care instructions jthabet Not available 11/23/2023 11:58:22 learning about copd and how to prevent lung infections jthabet Not available 11/23/2023 11:58:21 To call or return for worsening or concerns jthabet Not available 11/23/2023 12:04:13 02/27/2024 [id number] schizophrenia: care instructions acennerazzo Not available 02/27/2024 18:37:24 type 2 diabetes: care instructions acennerazzo Not available 02/27/2024 15:14:26 Reason for Referral Diabetic Ophthalmology Refer ral for Uncontrolled type 2 diabetes mellitus Type 2 diabetes requiring regular eye exams. Referring Physician: Scooter Amador [facility], Encounter Date: 08/07/2023 Genetics Physician Referral for Screening for malignant neoplasm of colon Needs colon cancer screening Referring Physician: Scooter Amador [facility], Encounter Date: 08/07/2023 Results Created Date Observation Date Name Description Value Unit Range Abnormal Flag Note LastModifiedBy Organization Detail LastModifiedTime 08/29/20 22 08/29/2022 hemog lobin A1C, finge rstic k A1C 7.6 % 4-6 abnormal Not Available In-Office Order Internal Use Only DO Not Attach Compendium DO Not Attach Compendium, Do Not Delete/merge, [id number] 08/29/2022 13:24:28 08/07/20 23 08/07/2023 hemog lobin A1C, finge rstic k A1C 7.2 % 4-6 Not Available In-Office Order Internal Use Only DO Not Attach Compendium DO Not Attach Compendium, Do Not Delete/merge, [id number] 08/07/2023 13:25:15 11/23/19 24 11/23/2023 hemog lobin A1C, lj rslilian k A1C 7.3 % 4-6 abnormal Not Available In-Office Order Internal Use Only DO Not Attach Compendium DO Not Attach Compendium, Do Not Delete/merge, [id number] 11/23/2023 12:17:33 02/27/20 24 02/28/2024 CBC WITH DIFFE RENTI AL/PL ATELE T WBC 9.5 x10e3 /uL 3.4-10 .8 Not Available [facility] [address] [place], [address], 02/28/2024 12:06:16 02/27/20 24 02/28/2024 CBC WITH DIFFE RENTI AL/PL ATELE T RBC 5.03 x10e6 /uL 3.77-5 .28 Not Available [facility] ([facility] [address] [place], [address], 02/28/2024 12:06:16 02/27/20 24 02/28/2024 CBC WITH DIFFE RENTI AL/PL ATELE T hemoglobin 15.3 g/dL 11.1-1 5.9 Not Available [facility] ([facility]) [address] [place], [address], 02/28/2024 12:06:16 02/27/20 24 02/28/2024 CBC WITH DIFFE RENTI AL/PL ATELE T hematocrit 46.4 % 34.0-4 6.6 Not Available [facility] ([facility]) [address] [place], [address], 02/28/2024 12:06:16 02/27/20 24 02/28/2024 CBC WITH DIFFE RENTI AL/PL ATELE T MCV 92 fL 79-97 Not Available [facility] ([facility]) [address] [place], [address], 02/28/2024 12:06:16 02/27/20 24 02/28/2024 CBC WITH DIFFE RENTI AL/PL ATELE T MCH 30.4 pg 26.6-3 3.0 Not Available [facility] ([facility]) [address] [facility], [place], [address], 02/28/2024 12:06:16 02/27/20 24 02/28/2024 CBC WITH DIFFE RENTI AL/PL ATELE T MCHC 33.0 g/dL 31.5-3 5.7 Not Available [facility]) [address] [facility], [place], [address], 02/28/2024 12:06:16 02/27/20 24 02/28/2024 CBC WITH DIFFE RENTI AL/PL ATELE T RDW 13.5 % 11.7-1 5.4 Not Available [facility]) [address] [facility], [place], [address], 02/28/2024 12:06:16 02/27/20 24 02/28/2024 CBC WITH DIFFE RENTI AL/PL ATELE T platelets 222 x10e3 /uL 150-45 0 Not Available [facility]) [address] [facility], [place], [address], 02/28/2024 12:06:16 02/27/20 24 02/28/2024 CBC WITH DIFFE RENTI AL/PL ATELE T neutrophils 47 % not estab. Not Available [facility]) [address] [place], [address], 02/28/2024 12:06:16 02/27/20 24 02/28/2024 CBC WITH DIFFE RENTI AL/PL ATELE T lymphs 44 % not estab. Not Available [facility] [address] [place], [address], 02/28/2024 12:06:16 02/27/20 24 02/28/2024 CBC WITH DIFFE RENTI AL/PL ATELE T monocytes 8 % not estab. Not Available [facility]) [address] [facility], [place], [address], 02/28/2024 12:06:16 02/27/20 24 02/28/2024 CBC WITH DIFFE RENTI AL/PL ATELE T eos 1 % not estab. Not Available [facility] [address] [place], [address], 02/28/2024 12:06:16 02/27/20 24 02/28/2024 CBC WITH DIFFE RENTI AL/PL ATELE T basos 0 % not estab. Not Available [facility] [address] [place], [address], 02/28/2024 12:06:16 02/27/20 24 02/28/2024 CBC WITH DIFFE RENTI AL/PL ATELE T immature cells CHAIR UPHOLSTERER Not Available [facility]) [address] [place], [address], 02/28/2024 12:06:16 02/27/20 24 02/28/2024 CBC WITH DIFFE RENTI AL/PL ATELE T neutrophils (absolute) 4.4 x10e3 /uL 1.4-7. 0 Not Available [facility]) [address] [place], [address], 02/28/2024 12:06:16 02/27/20 24 02/28/2024 CBC WITH DIFFE RENTI AL/PL ATELE T lymphs (absolute) 4.2 x10e3 /uL 0.7-3. 1 above high normal Not Available [facility]) [address] [place], [address], 02/28/2024 12:06:16 02/27/20 24 02/28/2024 CBC WITH DIFFE RENTI AL/PL ATELE T monocytes(ab solute) 0.7 x10e3 /uL 0.1-0. 9 Not Available [facility]) [address] [facility], [place], [address], 02/28/2024 12:06:16 02/27/20 24 02/28/2024 CBC WITH DIFFE RENTI AL/PL ATELE T eos (absolute) 0.1 x10e3 /uL 0.0-0. 4 Not Available [facility]) [address] [facility], [place], [address], 02/28/2024 12:06:16 02/27/20 24 02/28/2024 CBC WITH DIFFE RENTI AL/PL ATELE T baso (absolute) 0.0 x10e3 /uL 0.0-0. 2 Not Available [facility]) [address] [facility], [place], [address], 02/28/2024 12:06:16 02/27/20 24 02/28/2024 CBC WITH DIFFE RENTI AL/PL ATELE T immature granulocytes 0 % not estab. Not Available [facility]) [address] [facility], [place], [address], 02/28/2024 12:06:16 02/27/20 24 02/28/2024 CBC WITH DIFFE RENTI AL/PL ATELE T immature grans (abs) 0.0 x10e3 /uL 0.0-0. 1 Not Available [facility]) [address] [facility], [place], [address], 02/28/2024 12:06:16 02/27/20 24 02/28/2024 CBC WITH DIFFE RENTI AL/PL ATELE T NRBC CHAIR UPHOLSTERER Not Available [facility]) [address] [facility], [place], [address], 02/28/2024 12:06:16 06/05/20 24 02/28/2024 CBC WITH DIFFE JAZMYN AL/PL ATELE T hematology comments: CHAIR UPHOLSTERER Not Available [facility]) [address] [place], [address], 02/28/2024 12:06:16 02/27/20 24 02/28/2024 BASIC METAB OLIC PANEL (8) glucose 151 mg/dL 70-99 above high normal Not Available [facility] [address] [place], [address], 02/28/2024 12:06:17 02/27/20 24 02/28/2024 BASIC METAB OLIC PANEL (8) BUN 6 mg/dL 6-24 Not Available [facility] [address] [place], [address], 02/28/2024 12:06:17 02/27/20 24 02/28/2024 BASIC METAB OLIC PANEL (8) creatinine 0.51 mg/dL 0.57-1 .00 below low normal Not Available [facility] [address] [place], [address], 02/28/2024 12:06:17 02/27/20 24 02/28/2024 BASIC METAB OLIC PANEL (8) eGFR 114 mL/mi n/1.7 3 >59 Not Available [facility] [address] [place], [address], 02/28/2024 12:06:17 02/27/20 24 02/28/2024 BASIC METAB OLIC PANEL (8) BUN/creatini ne ratio 12 9-23 Not Available [facility] [address] [place], [address], 02/28/2024 12:06:17 02/27/20 24 02/28/2024 BASIC METAB OLIC PANEL (8) sodium 141 mmol/ L 134-14 4 Not Available [facility]) [address] [facility], [address], 02/28/2024 12:06:17 02/27/20 24 02/28/2024 BASIC METAB OLIC PANEL (8) potassium 4.6 mmol/ L 3.5-5. 2 Not Available [facility]) [address] [facility], [address], 02/28/2024 12:06:17 02/27/20 24 02/28/2024 BASIC METAB OLIC PANEL (8) chloride 98 mmol/ L 96-106 Not Available [facility]) [address] [facility] [place], [address], 02/28/2024 12:06:17 02/27/20 24 02/28/2024 BASIC METAB OLIC PANEL (8) carbon dioxide, total 31 mmol/ L 20-29 above high normal Not Available [facility]) [address] [facility] [place], [address], 02/28/2024 12:06:17 02/27/20 24 02/28/2024 BASIC METAB OLIC PANEL (8) calcium 9.8 mg/dL 8.7-10 .2 Not Available [facility]) [address] [facility] [place], [address], 02/28/2024 12:06:17 02/27/20 24 02/28/2024 LIPID PANEL cholesterol, total 178 mg/dL 100-19 9 Not Available [facility]) [address] [facility] [place], [address], 02/28/2024 12:06:18 02/27/20 24 02/28/2024 LIPID PANEL triglyceride s 116 mg/dL 0-149 Not Available [facility]) [address] [facility] [place], [address], 02/28/2024 12:06:18 02/27/20 24 02/28/2024 LIPID PANEL HDL cholesterol 96 mg/dL >39 Not Available [facility] [address] [place], [address], 02/28/2024 12:06:18 02/27/20 24 02/28/2024 LIPID PANEL VLDL cholesterol luke 20 mg/dL 5-40 Not Available [facility] [address] [place], [address], 02/28/2024 12:06:18 02/27/20 24 02/28/2024 LIPID PANEL LDL chol calc (nih) 62 mg/dL 0-99 Not Available [facility] [address] [place], [address], 02/28/2024 12:06:18 02/27/20 24 02/28/2024 LIPID PANEL comment: CHAIR UPHOLSTERER Not Available [facility] [address] [place], [address], 02/28/2024 12:06:18 02/27/20 24 02/28/2024 LDL PETE STERO L (DIRE CT) LDL chol. (direct) 65 mg/dL 0-99 Not Available [facility] [address] [place], [address], 02/28/2024 12:06:19 02/27/20 24 02/28/2024 ALBUM IN, RANDO M URINE albumin, urine 13.2 ug/mL not estab. Not Available [facility] [address] [place], [address], 02/28/2024 12:06:20 02/27/20 24 02/28/2024 TSH RFX ON ABNOR MAL TO FREE T4 TSH 1.110 uIU/m L 0.450- 4.500 Not Available [facility] [address] [place], [address], 02/28/2024 12:06:20 02/27/20 24 02/27/2024 hemog lobin A1Clj A1C 8.2 % 4-6 high Not Available In-Office Order Internal Use Only DO Not Attach Compendium DO Not Attach Compendium, Do Not Delete/merge, [id number] 02/27/2024 14:30:40 Result Notes None recorded. Problems Name Problem SNOMED Code Status Onset Date Resolution Date Notes Provider Name and Address Organization Details Recorded Time Abdomina l pain 26747126 Completed 201104/14/2014 IMPRESSI ON: PT WITH INTERMIT TENT ABDO PAINS AND VOMITING POST PRANDIAL LY X PAST 2 DAYS. SXS SEEM TO BE IMPROVIN G. NL EXAM. DOES HAVE HX OF [place] ES AND ? LIVER LESION PER LAST US, RECHECK TODAY WITH ADDITION AL LABS. SINCE SXS SEEM TO BE IMPROVIN G I WILL CONTACT HER WITH RESULTS WHEN AVAILABL E AND HOLD ON SCHED F/U. TO CALL OFFICE SOONER PRN.; RECORDED 05/01/20 12 9:48AM BY SIXTO GALVEZATI ON/ADDEN DUM Not Available [facility] 4 14:17:44 Acute sinusiti s 53029401 Completed 200804/14/2014 RECORDED 01/13/20 09 10:58AM BY MIRYAM CELIS MA, ANNOTATI ON/ADDEN DUM Not Available [facility] 4 14:17:44 Allergic rhinitis 82108746 Active Scooter Amador MD [address] [facility] [address], [place], [address] , [facility] 5 17:55:35 Screenin g for malignan t neoplasm of breast Completed 201304/14/2014 RECORDED 12/24/19 14 8:19AM BY KATY CATALAN I ANNOTATI ON/ADDEN DUM Not Available [facility] 4 14:17:45 Cough 95486113 Completed 200704/14/2014 DATE: 08/06/20 08; IMPRESSI ON: W/ WHEEZING .; RECORDED 05/01/20 12 9:48AM BY SIXTO GALVEZATI ON/ADDEN DUM Xi Abarca MA [facility], [facility] 7 09:53:54 Tobacco dependen ce syndrome 68611973 Completed 201304/14/2014 RECORDED 12/24/19 14 8:19AM BY SIXTO GALVEZATI ON/ADDEN DUM Not Available [facility] 4 14:17:45 Type 2 diabetes mellitus without complica tion 853986886 Completed 201204/14/2014 IMPRESSI ON: NO CHANGES IN MGMT; CHECK LABS AND ADJUST IF NEEDED.; RECORDED 07/15/20 13 2:53PM BY AINSLEY MONSIVAIS MA, ANTHONY ON/ADDEN DUM Deja Murphy PA-C [address] [facility] [address], [place], [address] , [facility] 7 13:54:58 Type 2 diabetes mellitus without complica tion 384529034 Completed 07/06/2017 Deja Murphy PA-C [address] [facility] [address], [place], [address] , [facility] 7 13:54:58 Diarrhea 71570847 Completed 201104/14/2014 IMPRESSI ON: THIS SEEMS LIKE IBS GIVEN HER SX AND THE AMOUNT OF TIME SHE HAS HAD SX. DOUBT INFECTIO US BECAUSE OF THE DURATION . WILL CHECK STOOL STUDIES NEXT VISIT IF STILL SYMPTOMA TIC.; RECORDED 07/08/20 12 11:19AM BY ANTHONY GALVEZ ON/ADDEN DUM Not Available [facility] 4 14:17:45 Dizzines s and giddines s 316216605 Completed 201104/14/2014 RECORDED 05/01/20 12 9:48AM BY ANTHONY GALVEZ ON/ADDEN DUM Not Available [facility] 4 14:17:45 Dysmenor seng [id number] Completed 201104/14/2014 RECORDED 05/01/20 12 9:48AM BY KATY SCHULTZK I, ANNOTATI ON/ADDEN DUM Not Available [facility] 4 14:17:45 Respirat ory finding [id number] Completed 201104/14/2014 RECORDED 05/01/20 12 9:48AM BY KATY CATALAN I ANNOTATI ON/ADDEN DUM Not Available [facility] 4 14:17:45 Blood chemistr y outside referenc e range 611115111 Completed 201104/14/2014 RECORDED 05/01/20 12 9:48AM BY SIXTO GALVEZATI ON/ADDEN DUM Not Available [facility] 4 14:17:45 Malaise and fatigue 246404306 Completed 05/24/2017 Xi rodriguez, [facility] 7 09:53:48 Influenz a vaccine needed [id number] 06 Completed 201004/14/2014 DATE: 06/09/20 11; RECORDED 05/01/20 12 9:48AM BY SIXTO GALVEZATI ON/ADDEN DUM Not Available [facility] 4 14:17:45 Disorder of hair AND/OR hair follicle Completed 201104/14/2014 RECORDED 05/01/20 12 9:48AM BY SIXTO GALVEZATI ON/ADDEN DUM Not Available [facility] 4 14:17:45 Adult health examinat ion Completed 201304/14/2014 RECORDED 12/24/19 14 8:19AM BY SIXTO GALVEZATI ON/ADDEN DUM Not Available [facility] 4 14:17:45 Well child 794044831 Completed 201104/14/2014 RECORDED 05/01/20 12 9:48AM BY SIXTO GALVEZATI ON/ADDEN DUM Not Available [facility] 4 14:17:45 Pure hypercho lesterol emia 919809995 Completed 10/31/2016 Scooter Amador MD [address] [facility] [address], [place], [address] , [facility] 7 14:03:55 Irritabl e bowel syndrome 64764586 Completed 201104/14/2014 RECORDED 07/08/20 12 11:19AM BY ANTHONY GALVEZ ON/ADDEN DUM Not Available [facility] 4 14:17:46 Primary malignan t neoplasm of uterine cervix 934838092 Completed 201204/14/2014 AGE 17, LASER REMOVAL; RECORDED 10/08/19 13 11:20AM BY ANTHONY GALVEZ ON/ADDEN DUM Not Available [facility] 4 14:17:46 Administ ration of bacteria l and viral vaccine Completed 200704/14/2014 RECORDED 08/06/20 08 2:05PM BY GM SEAMAN, OFFICE VISIT Not Available [facility] 4 14:17:46 Onychomy cosis due to dermatop hyte 253422085 Completed 201104/14/2014 RECORDED 05/01/20 12 9:48AM BY ANTHONY GALVEZ ON/ADDEN DUM Not Available [facility] 4 14:17:46 Knee pain Completed 201104/14/2014 RECORDED 05/01/20 12 9:48AM BY ANTHONY GALVEZ ON/ADDEN DUM Not Available [facility] 4 14:17:46 Immuniza tion refused Completed 201304/14/2014 RECORDED 12/24/19 14 8:19AM BY ANTHONY GALVEZ ON/ADDEN DUM Not Available [facility] 4 14:17:46 Posterio r rhinorrh ea [id number] Completed 201104/14/2014 RECORDED 05/01/20 12 9:48AM BY ANTHONY GALVEZ ON/ADDEN DUM Not Available [facility] 4 14:17:46 Eruption [id number] Completed 200804/14/2014 RECORDED 01/13/20 09 10:58AM BY MIRYAM CELIS MA, ANTHONY ON/ADDEN DUM Not Available [facility] 4 14:17:46 Procedur e refused Completed 201104/14/2014 RECORDED 05/01/20 12 9:48AM BY SIXTO GALVEZATI ON/ADDEN DUM Not Available [facility] 4 14:17:46 Speciali zed medical examinat ion Completed 201104/14/2014 RECORDED 05/01/20 12 9:48AM BY KATY CATALAN I ANNOTATI ON/ADDEN DUM Not Available [facility] 4 14:17:46 Schizoph yanique [id number] Active Stable on meds. Followed by psych Scooter Amador MD [address], [place], [address] , [facility] 6 13:25:02 Screenin g for malignan t neoplasm of cervix Completed 201104/14/2014 RECORDED 05/01/20 12 9:48AM BY ANTHONY GALVEZ ON/ADDEN DUM Not Available [facility] 4 14:17:46 Chronic sinusiti s 00944379 Completed 201104/14/2014 RECORDED 05/01/20 12 9:48AM BY ANTHONY GALVEZ ON/ADDEN DUM Not Available [facility] 4 14:17:46 Tobacco dependen ce syndrome 08955779 Active Scooter Amador MD [address], [place], [address] , [facility] 6 15:15:56 Trichomo nal vulvovag initis 54488768 Completed 201004/14/2014 DATE: 03/02/20 11; RECORDED 05/01/20 12 9:48AM BY SIXTO GALVEZATI ON/ADDEN DUM Not Available [facility] 4 14:17:46 Acute upper respirat ory infectio n 23986445 Completed 201204/14/2014 RECORDED 10/08/19 13 11:24AM BY SIXTO GALVEZATI ON/ADDEN DUM Not Available [facility] 4 14:17:47 Urinary incontin ence 975320222 Completed 200704/14/2014 RESOLVED DATE: 04/23/20 08; RECORDED 04/23/20 08 10:15AM BY SCOOTER SILVA MD, ANNOTATI ON/ADDEN DUM Not Available [facility] 4 14:17:47 Wheezing [id number] Completed 201204/14/2014 IMPRESSI ON: NO H/O ASTHMA. SHE WILL CALL IF SHE NEEDS TO USE THE PROAIR DAILY.; RECORDED 10/08/19 13 11:24AM BY ANTHONY GALVEZ ON/ADDEN DUM Not Available [facility] 4 14:17:47 Abdomina l pain [id number] Completed 201105/04/2014 IMPRESSI ON: PT WITH INTERMIT TENT ABDO PAINS AND VOMITING POST PRANDIAL LY X PAST 2 DAYS. SXS SEEM TO BE IMPROVIN G. NL EXAM. DOES HAVE HX OF [place] ES AND ? LIVER LESION PER LAST US, RECHECK TODAY WITH ADDITION AL LABS. SINCE SXS SEEM TO BE IMPROVIN G I WILL CONTACT HER WITH RESULTS WHEN AVAILABL E AND HOLD ON SCHED F/U. TO CALL OFFICE SOONER PRN.; RECORDED 05/01/20 12 9:48AM BY ANTHONY GALVEZ ON/ADDEN DUM Not Available [facility] 4 06:38:55 Acute sinusiti s [id number] Completed 200805/04/2014 RECORDED 01/13/20 09 10:58AM BY MIRYAM CELIS MA, SIXTOATI ON/ADDEN DUM Not Available [facility] 4 06:38:55 Screenin g for malignan t neoplasm of breast Completed 201305/04/2014 RECORDED 12/24/19 14 8:19AM BY ANTHONY GALVEZ ON/ADDEN DUM Not Available [facility] 4 06:38:55 Cough 68935387 Completed 200705/04/2014 DATE: 08/06/20 08; IMPRESSI ON: W/ WHEEZING .; RECORDED 05/01/20 12 9:48AM BY ANTHONY GALVEZ ON/ADDEN DUM Xi Abarca MA [facility], [facility] 7 09:53:54 Tobacco dependen ce syndrome [id number] Completed 201305/04/2014 RECORDED 12/24/19 14 8:19AM BY SIXTO GALVEZATI ON/ADDEN DUM Not Available [facility] 4 06:38:55 Type 2 diabetes mellitus without complica tion [id number] Completed 201205/04/2014 IMPRESSI ON: NO CHANGES IN MGMT; CHECK LABS AND ADJUST IF NEEDED.; RECORDED 07/15/20 13 2:53PM BY AINSLEY MONSIVAIS MA, ANTHONY ON/ADDEN DUM Deja Murphy PA-C [address] [facility] [facility] [address], [place], [address] , [facility] 7 13:54:58 Diarrhea 57335691 Completed 201105/04/2014 IMPRESSI ON: THIS SEEMS LIKE IBS GIVEN HER SX AND THE AMOUNT OF TIME SHE HAS HAD SX. DOUBT INFECTIO US BECAUSE OF THE DURATION . WILL CHECK STOOL STUDIES NEXT VISIT IF STILL SYMPTOMA TIC.; RECORDED 07/08/20 12 11:19AM BY ANTHONY GALVEZ ON/ADDEN DUM Not Available [facility] 4 06:38:55 Dizzines s and giddines s [id number] Completed 201105/04/2014 RECORDED 05/01/20 12 9:48AM BY ANTHONY GALVEZ ON/ADDEN DUM Not Available [facility] 4 06:38:55 Dysmenor seng [id number] Completed 201105/04/2014 RECORDED 05/01/20 12 9:48AM BY ANTHONY GALVEZ ON/ADDEN DUM Not Available [facility] 4 06:38:55 Respirat ory finding 153013027 Completed 201105/04/2014 RECORDED 05/01/20 12 9:48AM BY ANTHONY GALVEZ ON/ADDEN DUM Not Available [facility] 4 06:38:55 Blood chemistr y outside referenc e range [id number] Completed 201105/04/2014 RECORDED 05/01/20 12 9:48AM BY SIXTO GALVEZATI ON/ADDEN DUM Not Available [facility] 4 06:38:55 Influenz a vaccine needed [id number] 06 Completed 201005/04/2014 DATE: 06/09/20 11; RECORDED 05/01/20 12 9:48AM BY SIXTO GALVEZATI ON/ADDEN DUM Not Available [facility] 4 06:38:55 Disorder of hair AND/OR hair follicle Completed 201105/04/2014 RECORDED 05/01/20 12 9:48AM BY SIXTO GALVEZATI ON/ADDEN DUM Not Available [facility] 4 06:38:55 Adult health examinat ion Completed 201305/04/2014 RECORDED 12/24/19 14 8:19AM BY SIXTO GALVZEATI ON/ADDEN DUM Not Available [facility] 4 06:38:55 Well child [id number] Completed 201105/04/2014 RECORDED 05/01/20 12 9:48AM BY SIXTO GALVEZATI ON/ADDEN DUM Not Available [facility] 4 06:38:55 Irritabl e bowel syndrome 23576277 Completed 201105/04/2014 RECORDED 07/08/20 12 11:19AM BY SIXTO GALVEZATI ON/ADDEN DUM Not Available [facility] 4 06:38:56 Laborato ry procedur e performe d [id number] Completed 201305/26/2014 RECORDED 04/02/20 14 2:51PM BY NATA RIVERS, LAB REQ Scooter Amador MD [address] [facility], [place], [address] , [facility] 4 12:00:02 Primary malignan t neoplasm of uterine cervix 329269137 Completed 201205/04/2014 AGE 17, LASER REMOVAL; RECORDED 10/08/19 13 11:20AM BY SIXTO GALVEZATI ON/ADDEN DUM Not Available [facility] 4 06:38:56 Administ ration of bacteria l and viral vaccine Completed 200705/04/2014 RECORDED 08/06/20 08 2:05PM BY GM SEAMAN, OFFICE VISIT Not Available [facility] 4 06:38:56 Onychomy cosis due to dermatop hyte [id number] Completed 201105/04/2014 RECORDED 05/01/20 12 9:48AM BY SIXTO GALVEZATI ON/ADDEN DUM Not Available [facility] 4 06:38:56 Knee pain Completed 201105/04/2014 RECORDED 05/01/20 12 9:48AM BY SIXTO GALVEZATI ON/ADDEN DUM Not Available [facility] 4 06:38:56 Immuniza tion refused Completed 201305/04/2014 RECORDED 12/24/19 14 8:19AM BY SIXTO GALVEZATI ON/ADDEN DUM Not Available [facility] 4 06:38:56 Posterio r rhinorrh ea [id number] Completed 201105/04/2014 RECORDED 05/01/20 12 9:48AM BY SIXTO GALVEZATI ON/ADDEN DUM Not Available [facility] 4 06:38:56 Eruption [id number] Completed 200805/04/2014 RECORDED 01/13/20 09 10:58AM BY MIRYAM CELIS MA, SIXTOATI ON/ADDEN DUM Not Available [facility] 4 06:38:56 Procedur e refused Completed 201105/04/2014 RECORDED 05/01/20 12 9:48AM BY SIXTO GALVEZATI ON/ADDEN DUM Not Available [facility] 4 06:38:56 Speciali zed medical examinat ion Completed 201105/04/2014 RECORDED 05/01/20 12 9:48AM BY SIXTO GALVEZATI ON/ADDEN DUM Not Available [facility] 4 06:38:56 Screenin g for malignan t neoplasm of cervix Completed 201105/04/2014 RECORDED 05/01/20 12 9:48AM BY KATY CATALAN I ANNOTATI ON/ADDEN DUM Not Available [facility] 4 06:38:56 Chronic sinusiti s 00767208 Completed 201105/04/2014 RECORDED 05/01/20 12 9:48AM BY KATY CATALAN I ANNOTATI ON/ADDEN DUM Not Available [facility] 4 06:38:56 Trichomo nal vulvovag initis 50031216 Completed 201005/04/2014 DATE: 03/02/20 11; RECORDED 05/01/20 12 9:48AM BY SIXTO GALVEZATI ON/ADDEN DUM Not Available [facility] 4 06:38:56 Acute upper respirat ory infectio n 00128047 Completed 201205/04/2014 RECORDED 10/08/19 13 11:24AM BY SIXTO GALVEZATI ON/ADDEN DUM Not Available [facility] 4 06:38:56 Urinary incontin ence 692834312 Completed 200705/04/2014 RESOLVED DATE: 04/23/20 08; RECORDED 04/23/20 08 10:15AM BY SCOOTER SILVA MD, ANNOTATI ON/ADDEN DUM Not Available [facility] 4 06:38:56 Wheezing 94841159 Completed 201205/04/2014 IMPRESSI ON: NO H/O ASTHMA. SHE WILL CALL IF SHE NEEDS TO USE THE PROAIR DAILY.; RECORDED 10/08/19 13 11:24AM BY SIXTO GALVEZATI ON/ADDEN DUM Not Available [facility] 4 06:38:56 Type 2 diabetes mellitus 95578244 Completed 01/28/2015 Deja Murphy PA-C [address] [facility] [address], [place], [address] , [facility] 7 13:55:02 Cough 55035543 Completed 05/24/2017 Xi rodriguez, [facility] 7 09:53:54 Nasal congesti on 91443736 Completed 05/24/2017 Xi rodriguez, [facility] 7 09:53:58 Type 2 diabetes mellitus 08145443 Completed 07/06/2017 Deja Murphy PA-C [address] [facility] [address], [place], [address] , [facility] 7 13:55:02 Gynecolo gic examinat ion Active Scooter Amador MD [address] [facility] [address], [place], [address] , [facility] 5 06:59:59 Chest pain 01377965 Completed 05/24/2017 Xi rodriguez, [facility] 7 09:53:51 Chronic obstruct meri pulmonar y disease 53065552 Active 2016 Rubén Murphy PA-C [address] [facility] [address], [place], [address] , [facility] 7 13:22:11 Uncontro lled type 2 diabetes mellitus 012221694 Active 2016 Deja Murphy PA-C [address] [address], [place], [address] , [facility] 7 13:55:08 Hyperlip idemia 01362048 Active 2020 Scooter Amador MD [address] [address], [place], [address] , [facility] 1 19:28:56 Problem Notes None recorded. Procedures Surgical History Date Name Laterality Status Provider Name and Address Organization Details Recorded Time 3 Diabetic Foot Exam (Monofilament) completed Scooter Amador MD [address] [address], [place], [address], [facility] 04/24/2023 15:00:38 2 Diabetic Foot Exam (Monofilament) completed Scooter Amador MD [address] [address], [place], [address], [facility] 12/13/2021 14:39:14 1 Diabetic Foot Exam (Monofilament) completed Scooter Amador MD [address], [address], [facility] 02/07/2021 15:13:59 1 Diabetic Foot Exam (Monofilament) completed Scooter Amdaor MD [address], [address], [facility] 10/15/2020 13:38:53 0 Diabetic Foot Exam (Monofilament) completed Scooter Amador MD [address], [address], [facility] 04/14/2020 17:17:01 9 Diabetic Foot Exam (Monofilament) completed Scooter Amador MD [address], [address], [facility] 03/20/2019 15:31:43 8 Diabetic Foot Exam (Monofilament) completed Scooter Amador MD [address], [address], [facility] 02/28/2018 07:11:43 6 Most Recent Mammogram completed Magda Marcus [facility] 01/07/2016 08:42:52 6 Mammogram Screening completed Magda Marcus [facility] 01/07/2016 08:42:52 5 Date of Last Pap Smear completed Luis Alberto Smith [facility] 03/22/2017 16:18:21 4 Nebulizer tx completed MARIE Pfeiffer [address] [facility] [address], [place], [address], [facility] 07/15/2014 14:31:36 Other completed Miryam boone [place] [facility] 07/15/2014 14:13:40 Imaging Results None recorded. Procedure Notes None recorded. Medical Equipment None Reported. Allergies Allergen ID Allergen Name Allergen Category Reaction Reaction Severity Criticality Documentation Date Start Date Code Code System Note Provider Name and Address Organization Details Recorded Time 62419 Actos medicatio n edema moderate Not available 06/29/2021 76407 2 RxNorm Scooter dean MD [address] [facility] [address], [place], [address], [facility] 1 09:25:21 Medications Name Sig Start Date Stop Date Status Note LastModified by Organization Details LastModified Time smz/tmp ds tab 800-160 03/23 completed Not Available Not Available Not Available clozapine 100 mg tabs 03/23 completed Not Available Not Available Not Available metformin hydrochlo ride 1000 mg tabs 03/23 completed Not Available Not Available Not Available Prescript ion - Prior Authoriza tion Request 09/05 completed Not Available Not Available Not Available clozapine 25 mg tabs 03/23 completed Not Available Not Available Not Available lisinopri l 5 mg tabs 04/05 completed Not Available Not Available Not Available pioglitaz one hydrochlo ride 15 mg tabs 03/23 completed Not Available Not Available Not Available tradjenta 5 mg tabs 03/23 completed Not Available Not Available Not Available lorazepam 0.5 mg tabs 03/23 completed Not Available Not Available Not Available lovastati n 40 mg tabs 03/23 completed Not Available Not Available Not Available risperdal consta 37.5 mg srer 03/23 completed Not Available Not Available Not Available divalproe x sodium er 500 mg tb24 04/13 completed Not Available Not Available Not Available pioglitaz one 15 mg tablet TAKE ONE TABLET BY MOUTH DAILY DIRECTED 10/14 completed Not Available Not Available Not Available metformin 500 mg tablet TAKE 1 TABLET BY MOUTH TWICE DAILY. active Not Available Not Available No t Available prednison e 10 mg tablet Take 1 tablet every day by oral route as directed for 5 days. 10/31 completed Not Available Not Available Not Available azithromy manda 250 mg tablet TAKE 2 TABLETS (500 MG) BY ORAL ROUTE ONCE DAILY FOR 1 DAY THEN 1 TABLET (250 MG) BY ORAL ROUTE ONCE DAILY FOR 4 DAYS 05/24 completed Not Available Not Available Not Available clozapine 100 mg tablet TAKE 2 TABLETS BY MOUTH AT BEDTIME active Not Available Not Available No t Available fluconazo le 150 mg tablet Take 1 tablet every day by oral route for 7 days. 12/13 completed Not Available Not Available Not Available benzonata te 200 mg capsule Take 1 capsule 3 times a day by oral route for 7 days. 03/20 completed Not Available Not Available Not Available risperido ne 4 mg tablet TAKE 1 TABLET BY MOUTH AT BEDTIME active Not Available Not Available No t Available FreeStyle Lancets 28 gauge USE TO TEST BLOOD GLUCOSE EVERY DAY active Not Available Not Available No t Available lovastati n 40 mg tablet TAKE 1 TABLET BY MOUTH EVERY DAY active Not Available Not Available No t Available loperamid e 2 mg tablet Take 1 tablet every day by oral route. 02/27 completed Not Available Not Available Not Available pioglitaz one 45 mg tablet TAKE ONE TABLET BY MOUTH EVERY DAY active Not Available Not Available No t Available Motrin IB 200 mg tablet Take 2 tablets every 6 hours by oral route as needed. 11/30 completed Pain Not Available Not Available Not Available metronida zole 500 mg tablet TWO TIMES DAILY 03/07 completed RECORDED 03/07/20 11 9:12AM BY SCOOTER SILVA MD, ANTHONY ON/LYRIC DUM; Not Available Not Available Not Available sulfameth oxazole 800 mg-trimet hoprim 160 mg tablet TAKE ONE TABLET BY MOUTH EVERY TWELVE HOURS FOR 3 DAYS 10/14 completed Not Available Not Available Not Available terbinafi ne HCl 250 mg tablet DAILY 02/02 completed RECORDED 02/03/20 10 2:24PM BY ANTHONY TUCKER ON/ADDEN DUM; Not Available Not Available Not Available amoxicill in 875 mg tablet TWO TIMES DAILY 10/28 completed RECORDED 11/28/19 12 8:43AM BY CHUYITA FOSTER PA-C, MEDICATI ON AUTO-ASHELY CTIVATIO N; Not Available Not Available Not Available lorazepam 0.5 mg tablet Take 1 tablet by mouth twice a day as needed 03/17 completed Not Available Not Available Not Available nicotine (polacril ex) 4 mg gum 30 MINUTES NEEDED 02/02 completed RECORDED 02/03/20 10 2:24PM BY LUIS ALBERTO [facility] ON/LYRIC DUM; Not Available Not Available Not Available imiquimod 5 % topical cream packet APPLY 2 PACKETS TO THE AFFECTED AREA TOPICALL Y EVERY NIGHT AT BEDTIME FOR 2 WEEKS 04/24 completed on hold Not Available Not Available Not Available ascorbic acid (vitamin C) 250 mg tablet TAKE 1 TABLET BY MOUTH ONCE DAILY active Not Available Not Available No t Available erythromy manda 5 mg/gram (0.5 %) eye ointment APPLY 1 CM RIBBON INTO THE LOWER CONJUNCT IVAL SAC(S) IN THE AFFECTED EYE(S) BY OPHTHALM IC ROUTE 3 TIMES PER DAY x 7-10 days 02/28 completed Not Available Not Available Not Available metformin 1,000 mg tablet TAKE 1 TABLET BY MOUTH TWICE DAILY 2024 active Not Available Not Available Not Avai lable prednison e 50 mg tablet DAILY 07/16 completed RECORDED 07/19/20 11 9:51AM BY SCOOTER SILVA MD, MEDICATI ON AUTO-ASHELY CTIVATIO N; Not Available Not Available Not Available divalproe x ER 500 mg tablet,ex tended release 24 hr TAKE 2 TABLETS BY MOUTH EVERY MORNING active Not Available Not Available No t Available ibuprofen 400 mg tablet TAKE 1 TABLET BY MOUTH EVERY 6 HOURS NEEDED FOR MENSTRUA L CRAMP PAIN. active Not Available Not Available No t Available Tylenol 325 mg tablet Take 2 tablets every 6 hours by oral route as needed. active Not Available Not Available No t Available cephalexi n 500 mg tablet THREE TIMES DAILY 08/05 completed RECORDED 08/13/20 09 9:54AM BY SCOOTER SILVA MD, MEDICATI ON AUTO-ASHELY CTIVATIO N; Not Available Not Available Not Available lisinopri l 5 mg tablet TAKE 1 TABLET BY MOUTH EVERY DAY active Not Available Not Available No t Available clozapine 25 mg tablet Take two (2) tablets by mouth at bedtime active Not Available Not Available No t Available lovastati n 20 mg tablet Take 1 tablet every day by oral route. 10/31 completed Not Available Not Available Not Available methylpre dnisolone 4 mg tablets in a dose pack TAKE DIRECTED ON PACKAGE 02/27 completed Not Available Not Available Not Available pioglitaz one 30 mg tablet TAKE ONE TABLET BY MOUTH DAILY 02/14 completed Seems like it was replaced by [facility] Not Available Not Available Not Available Naprosyn 500 mg tablet Take 1 tablet twice a day by oral route for 10 days. 11/02 completed Not Available Not Available Not Available ketoconaz ole 2 % topical cream APPLY TO THE AFFECTED AREA(S) BY TOPICAL ROUTE ONCE DAILY active Not Available Not Available No t Available doxycycli ne hyclate 100 mg tablet Take 1 tablet twice a day by oral route for 10 days. 10/31 completed Not Available Not Available Not Available loratadin e 10 mg tablet TAKE 1 TABLET BY MOUTH DAILY active Not Available Not Available No t Available Ventolin HFA 90 mcg/actua tion aerosol inhaler 2 puffs every 4 hours as needed 02/27 completed Not Available Not Available Not Available albuterol (refill) 90 mcg/actua tion aerosol inhaler EVERY FOUR HOURS, NEEDED 2011 active RECORDED 01/06/20 14 3:40PM BY KATY CATALAN I, OFFICE VISIT; Not Available Not Available Not Available divalproe x ER 250 mg tablet,ex tended release 24 hr TAKE 1 TABLET BY MOUTH EVERY EVENING active Not Available Not Available No t Available risperido ne 2 mg disintegr ating tablet DAILY active RECORDED 01/06/20 14 3:40PM BY KATY CATALAN I, OFFICE VISIT; Not Available Not Available Not Available Risperdal Consta 37.5 mg/2 mL intramusc ular susp,exte nded release INJECT 1 syringe (37.5 MG) INTO THE MUSCLE EVERY 2 WEEKS 08/29 completed Not Available Not Available Not Available Risperdal Consta 25 mg/2 mL intramusc ular susp,exte nded release INJECT 25 MG IN THE MUSCLE EVERY 2 WEEKS active Not Available Not Available No t Available Flovent HFA 110 mcg/actua tion aerosol inhaler Inhale 2 puffs twice a day by inhalati on route for 30 days. 11/19 completed Not Available Not Available Not Available Flonase DIRECTED 02/02 completed RECORDED 02/03/20 10 2:24PM BY ANTHONY TUCKER ON/ADDEN DUM;2 SPRAYS IN EACH NOSTRIL DAILY NEEDED. Not Available Not Available Not Available Metamucil Smooth Texture PRN 08/05 completed RECORDED 08/05/20 12 10:47AM BY SCOOTER SILVA MD, ANTHONY ON/ADDEN DUM; Not Available Not Available Not Available guaifenes in TID PRN 09/23 completed RECORDED 09/25/19 08 3:44PM BY VANESSA ROME MD, MEDICATI ON AUTO-ASHELY CTIVATIO N; Not Available Not Available Not Available Prolixin DAILY PRN 07/17 completed RECORDED 07/17/20 13 4:58PM BY SCOOTER SILVA MD, ANTHONY ON/ADDEN DUM; Not Available Not Available Not Available Sudafed Q6PRN 03/19 completed RECORDED 03/19/20 12 5:08PM BY ANTHONY TUCKER ON/ADDEN DUM; Not Available Not Available Not Available fiber 1-3 TIMES DAILY 02/02 completed RECORDED 02/03/20 10 2:23PM BY ANTHONY TUCKER ON/ADDEN DUM; Not Available Not Available Not Available Metamucil 1 TBSP daily 02/27 completed Not Available Not Available Not Available clozapine 200 mg tablet QHS / HS active RECORDED 01/06/20 14 3:40PM BY KATY CATALAN I, OFFICE VISIT; Not Available Not Available Not Available Januvia 50 mg tablet Take 1 tablet every day by oral route. 07/11 completed Not Available Not Available Not Available Januvia 100 mg tablet 07/11 completed Not Available Not Available Not Available FreeStyle Jermyn kit DAILY 07/03 completed RECORDED 07/15/20 13 10:18AM BY KATY CATALAN I MEDICATI ON AUTO-ASHELY CTIVATIO N;DX=DM2 Not Available Not Available Not Available Xiao CF Cough-Col d 5 mg-10 mg-100 mg/5 mL oral liquid 10/31 completed Not Available Not Available Not Available Pulmicort Flexhaler 180 mcg/actua tion breath activated Inhale 1 puff twice a day by inhalati on route. 02/27 completed Not Available Not Available Not Available FreeStyle Lite Strips USE TO TEST BLOOD GLUCSE TWICE DAILY active Not Available Not Available No t Available FreeStyle Lite Strips DAILY 02/27 completed Not Available Not Available Not Available Jayjayitussi n DM Max 10 mg-200 mg/5 mL oral liquid Take 5 mL every 4 hours by oral route as needed. 11/30 completed cough Not Available Not Available Not Available Cerovite Advanced Formula 18 mg-400 mcg tablet Take 1 tablet every day by oral route as directed for 90 days. 02/28 completed Refill request, med was stopped on 11/02/16 Not Available Not Available Not Available Vitamin D3 50 mcg (2,000 unit) capsule TAKE (1) CAPSULE BY MOUTH DAILY 12/13 completed Not Available Not Available Not Available Tradjenta 5 mg tablet TAKE 1 TABLET BY MOUTH EVERY DAY DIRECTED FOR DIABETES active Not Available Not Available No t Available TRUEplus Lancets 30 gauge USE 1 LANCET DAILY. 11/30 completed Not Available Not Available Not Available Farxiga 10 mg tablet TAKE 1 TABLET BY MOUTH ONCE DAILY active Not Available Not Available No t Available Jardiance 10 mg tablet 1 poqd 10/23 completed Not Available Not Available Not Available Jardiance 25 mg tablet TAKE 1 TABLET BY MOUTH ONCE DAILY 10/19 completed Not Available Not Available Not Available Robitussi n Cough-Sharonda st Congestio n DM 10 mg-200 mg capsule Take 1 capsule by oral route. 11/30 completed Not Available Not Available Not Available Vitals Date Recorded Body height Body mass index (BMI) Body weight Heart rate Oxygen saturation Oxygen saturation in Arterial blood by Pulse oximetry Body temperature Systolic blood pressure Diastolic blood pressure Provider Name and Address Organization Details Last Updated DateTime 2 165.74 cm 33.7 kg/m2 72350.8 4 g 98 /min 93 % 93 % 98.24 [degF] 114 mm[Hg] 74 mm[Hg] Masha Howard MA [facility] 2 13:30:52 Date Recorded Body height Body mass index (BMI) Body weight Heart rate Oxygen saturation Oxygen saturation in Arterial blood by Pulse oximetry Body temperature Systolic blood pressure Diastolic blood pressure Provider Name and Address Organization Details Last Updated DateTime 3 165.74 cm 32.8 kg/m2 83253.3 9 g 103 /min 95 % 95 % 97.6 [degF] 121 mm[Hg] 72 mm[Hg] Masha Howard MA [facility] 3 14:36:54 Date Recorded Body height Body mass index (BMI) Body weight Heart rate Oxygen saturation Oxygen saturation in Arterial blood by Pulse oximetry Body temperature Systolic blood pressure Diastolic blood pressure Provider Name and Address Organization Details Last Updated DateTime 3 165.74 cm 33 kg/m2 78767.4 7 g 91 /min 96 % 96 % 98.2 [degF] 140 mm[Hg] 78 mm[Hg] Janny Zapata MA [facility] 3 13:32:43 Date Recorded Body height Body mass index (BMI) Body weight Heart rate Oxygen saturation Oxygen saturation in Arterial blood by Pulse oximetry Body temperature Systolic blood pressure Diastolic blood pressure Provider Name and Address Organization Details Last Updated DateTime 4 165.74 cm 33.4 kg/m2 41626.6 6 g 84 /min 96 % 96 % 98.1 [degF] 121 mm[Hg] 74 mm[Hg] Evangelina tinajero MA [facility] 4 11:43:59 Date Recorded Body height Body mass index (BMI) Body weight Heart rate Oxygen saturation Oxygen saturation in Arterial blood by Pulse oximetry Body temperature Systolic blood pressure Diastolic blood pressure Provider Name and Address Organization Details Last Updated DateTime 4 165.74 cm 34.5 kg/m2 31362.8 1 g 105 /min 95 % 95 % 98 [degF] 143 mm[Hg] 83 mm[Hg] Janny Zapata MA [facility] 4 14:37:07 Social History Question Answer Notes LastModified by Organizat ion Details LastModified Time Tobacco Smoking Status Current Every Day Smoker Not Available [facility] 07/27/2020 03:36:37 Do You Have An Advance Directive? Yes [id number] Information not available 07/27/2020 What Is Your Level Of Alcohol Consumption? Occasional [id number] Information not available 07/27/2020 Is Blood Transfusion Acceptable In An Emergency? Yes [id number] Information not available 07/27/2020 What Is Your Level Of Caffeine Consumption? Moderate [id number] Information not available 07/27/2020 How Much Tobacco Do You Chew? None [id number] Information not available 07/27/2020 In The 14 Days Before Symptom Onset, Have You Had Close Contact With A Laboratory-confir med COVID-19 While That Case Was Ill? No [id number] Information not available 07/27/2020 In The 14 Days Before Symptom Onset, Have You Had Close Contact With A Person Who Is Under Investigation For COVID-19 While That Person Was Ill? No [id number] Information not available 07/27/2020 Have You Been To An Area Known To Be High Risk For COVID-19? No [id number] Information not available 07/27/2020 Are You Currently Employed? No [id number] Information not available 07/27/2020 What Type Of Diet Are You Following? DIABETIC [id number] Information not available 07/27/2020 Which Illicit Or Recreational Drugs Have You Used? No [id number] Information not available 07/27/2020 Do You Or Have You Ever Used E-cigarettes Or Vape? Never Used Electronic Cigarettes [id number] Information not available 07/27/2020 Education 8 Information n ot available 05/26/2014 Are There Any Guns Present In Your Home? No [id number] Information not available 07/27/2020 Hard Of Hearing Or Deaf In One Or Both Ears? No Information not available 05/26/2014 Legally Blind In One Or Both Eyes? No Information no t available 05/26/2014 Live Alone Or With Others? Alone [email or web address] Information not available 06/23/2019 How Often Do You Need To Have Someone Help You When You Read Instructions, Pamphlets, Or Other Written Material From Your Doctor Or Pharmacy? Never Information not available 08/10/2015 Have You Served In The ? No Information not available 10/31/2016 Have You Or Anyone In Your Household Had Any Of The Following Symptoms In The Last 14 Days: Sore Throat, Cough, Chills, Body Aches For Unknown Reasons, Shortness Of Breath For Unknown Reasons, Loss Of Smell, Loss Of Taste, Fever At Or Greater Than 100 Degrees Fahrenheit? No [email or web address] Information not available 04/13/2020 Are You Or Anyone In Your Household A Health Care Provider Or Emergency Responder? No Information not available 04/13/2020 To The Best Of Your Knowledge Have You Been In Close Proximity To Any Individual Who Tested Positive For COVID-19? No [email or web address] Information not available 04/13/2020 Have You Recently Traveled To A COVID-19 High Risk Area Or Gathering In The Last 10 Days? No [email or web address] Information not available 10/14/2020 What Was The Date Of Your Most Recent Tobacco Screening? 08/07/2023 [email or web address] Information not available 08/07/2023 How Many Children Do You Have? 2 [id number] Information not available 07/27/2020 What Is Your Current Pack Years? [email or web address] ars [id number] Information not available 07/27/2020 Do You Use Protection During Sex? No [id number] Information not available 07/27/2020 Seat Belts Used Routinely Yes [email or web address] Information not available 08/10/2015 Are You Sexually Active? Yes [id number] Information not available 07/27/2020 Smoke Alarm In Home Yes [email or web address] Information not available 08/10/2015 At What Age Did You Start Smoking Tobacco? 17 [id number] Information not available 07/27/2020 Are You Passively Exposed To Smoke? Yes [email or web address] Information no t available 07/15/2020 Do You Or Have You Ever Used Smokeless Tobacco? Never Used Smokeless Tobacco [id number] Information not available 07/27/2020 How Much Tobacco Do You Smoke? 1.5 PPD [id number] Information not available 07/27/2020 General Stress Level High Information not available 05/26/2014 Do You Use Any Illicit Or Recreational Drugs? No Information not available 12/13/2021 Do You Use Sunscreen Routinely? Yes [id number] Information not available 07/27/2020 Do You Or Have You Ever Used Any Other Forms Of Tobacco Or Nicotine? No Information not available 12/13/2021 Sex: Unknown Functional Status Question Answer Note LastModified by Organizat ion Details LastModified Time Are you able to walk? [email or web address] Information not available 12/13/2021 Are you able to care for yourself? No [id number] Information not available 07/27/2020 What is your exercise level? Occasional [id number] Information not available 07/27/2020 Mental Status None recorded. Family History Relationship Description Onset Age of this Age Resolved Age Notes LastModified by Organization Details LastModified Time Mother History of malignant neoplasm [email or web address] Not available 08/10 14:34:22 Maternal Grandfather Hypercholest [email or web address] Not available 08/10 14:34:22 Father Alcohol abuse [email or web address] Not available 05/27 15:27:47 Medical History No medical history recorded. Gynecological History Statement/Question Response Date of Last Pap Smear 08/10/2015 Most Recent Mammogram 01/06/2016 Obstetrics History GPAL:G 0 P 0 0 0 0 Immunizations Vaccine Type Date Status Note Provider Name and Address Organization Details Recorded Time pneumococcal polysaccharide PPV23 015 completed Not Available [facility] 10/11/2019 02:21:41 COVID-19, mRNA, LNP-S, PF, 30 mcg/0.3 mL dose [address] [facility] 06/28/2021 15:21:04 COVID-19, mRNA, LNP-S, PF, 30 mcg/0.3 mL dose [address] [facility] 06/28/2021 15:21:23 Td (adult), 2 Lf tetanus toxoid, preservative free, adsorbed 019 completed Not Available [facility] 10/11/2019 02:21:30 Influenza, split virus, quadrivalent, PF 020 cancelled patient objection GM Richards, [facility] 07/15/2020 14:31:12 Influenza, split virus, trivalent, preservative 008 completed Not Available [facility] 04/07/2014 14:07:42 Tdap 008 completed Not Available [facility] 04/07/2014 14:07:42 Influenza, split virus, trivalent, preservative 010 completed Not Available [facility] 04/07/2014 14:07:42 Influenza, split virus, trivalent, preservative 011 completed Not Available [facility] 04/07/2014 14:07:43 Past Encounters Encounter ID Performer Location Encounter Start Date Encounter Closed Date Diagnosis/Indication Diagnosis SNOMED-CT Code Diagnosis ICD10 Code Diagnosis Note [id number] auto[facility]Comm erce [address] [facility] [place] [address] 11/19/2006 00:00:00 [id number] autoEComm erce [address] [facility],[address] [place] [address] 12/10/2006 00:00:00 [id number] auto[facility]Comm erce [address] [facility],[address] [place] [address] 02/22/2007 00:00:00 [id number] auto[facility]Comm erce [address] [facility],[address] [place] [address] 08/24/2006 00:00:00 [id number] autoEComm erce [address] [facility],[address] [place] [address] 06/22/2006 00:00:00 [id number] autoEComm erce [address] [facility],[address] [place] [address] 06/04/2006 00:00:00 [id number] [address] [address] [place] [address] 03/25/2007 00:00:00 [id number] autoEComm erce [address] [facility] [address] [place] [address] 06/05/2007 00:00:00 [id number] auto[facility]Comm erce [address] [facility],[address] [place] [address] 10/25/2007 00:00:00 [id number] autoEComm erce [address] [facility],[address] [place] [address] 01/22/2008 00:00:00 [id number] autoEComm erce [address] [facility],[address] [place] [address] 04/23/2008 00:00:00 [id number] autoEComm erce [address] [facility],[address] [place] [address] 08/06/2008 00:00:00 [id number] autoEComm erce [address] [facility],[address] [place] [address] 08/08/2008 00:00:00 [id number] autoEComm erce [address] [facility],[address] [place] [address] 10/09/2008 00:00:00 [id number] autoEComm erce [address] [facility],[address] [place] [address] 12/11/2008 00:00:00 [id number] autoEComm erce [address] [facility],[address] [place] [address] 01/12/2009 00:00:00 [id number] autoEComm erce [address] [facility],[address] [place] [address] 04/26/2009 00:00:00 [id number] autoEComm erce [address] [facility],[address] [place] [address] 07/29/2009 00:00:00 [id number] autoEComm erce [address] [facility],[address] [place] [address] 09/07/2009 00:00:00 [id number] autoEComm erce [address] [facility],[address] [place] [address] 02/09/2010 00:00:00 [id number] auto[facility]Comm erce [address] [place] [address] 03/11/2010 00:00:00 [id number] autoEComm erce [address] [facility] [address] [place] [address] 05/31/2010 00:00:00 [id number] autoEComm erce [address] [facility],[address] [place] [address] 06/21/2010 00:00:00 [id number] autoEComm erce [address] [facility] [address] [place] [address] 08/24/2010 00:00:00 [id number] autoEComm erce [address] [facility],[address] [place] [address] 09/12/2010 00:00:00 [id number] autoEComm erce [address] [facility],[address] [place] [address] 11/24/2010 00:00:00 [id number] autoEComm erce [address] [facility],[address] [place] [address] 01/20/2011 00:00:00 [id number] autoEComm erce [address] [facility],[address] [place] [address] 03/02/2011 00:00:00 [id number] autoEComm erce [address] [facility],[address] [place] [address] 06/09/2011 00:00:00 [id number] autoEComm erce [address] [facility],[address] [place] [address] 10/03/2011 00:00:00 [id number] autoEComm erce [address] [facility],[address] [place] [address] 02/05/2012 00:00:00 [id number] autoEComm erce [address] [facility],[address] [place] [address] 03/05/2012 00:00:00 [id number] autoEComm erce [address] [place] [address] 05/01/2012 00:00:00 [id number] auto[facility]Comm erce [address] [place] [address] 07/08/2012 00:00:00 [id number] autoEComm erce [address] [facility] [address] [place] [address] 10/08/2012 00:00:00 [id number] autoEComm erce [address] [facility] [address] [place] [address] 01/09/2013 00:00:00 [id number] autoEComm erce [address] [facility] [address] [place] [address] 07/15/2013 00:00:00 [id number] autoEComm erce [address] [facility],[address] [place] [address] 01/05/2014 00:00:00 [id number] autoEComm erce [address] [facility],[address] [place] [address] 11/09/2009 00:00:00 [id number] autoEComm erce [address] [facility],[address] [place] [address] 04/09/2013 00:00:00 [id number] autoEComm erce [address] [facility],[address] [place] [address] 11/28/2011 00:00:00 [id number] autoEComm erce [address] [facility],[address] [place] [address] 09/15/2011 00:00:00 [id number] autoEComm erce [address] [facility] [place] [address] 07/11/2011 00:00:00 [id number] Main Office [address] [place] [address] 05/26/2014 11:43:44 05/26/2014 12:22:40 Type 2 diabetes mellitus 31191143 Pure hypercholesterolemia 448531260 Schizophrenia 92969161 Tobacco de pendence syndrome 28877571 [id number] Katy Camerongeetha Main Office [address] [address] [place] [address] 07/15/2014 13:46:49 07/15/2014 14:50:06 Allergic rhinitis 02968975 Cough 91041599 Cough, congestion , insp/ exp wheezing, hoarse voice, tachycardi a, sat 93% RA. Will treat with prednisone burst and zpak for possible bacterial infection. Also recommend patient use her inhaler 2 puffs every 4 hours as needed for cough/ wheezing. Stay well hydrated, humidifier as needed, rest, tylenol or ibuprofen as needed for pain/ fever. Nasal congestion 88094788 [id number] Katy Hollis Main Office [address] [address] [place] [address] 01/27/2015 14:32:48 01/27/2015 15:55:21 Adult health examination 290668002 Administra tion of pneumococcal vaccine 02432960 Type 2 irasema betes mellitus without complication 627418219 will increase her metformin from 500 bid to 1000 bid since her A1C is no longer at goal. Screening for malignant neoplasm of breast 345457191 Pure hypercholesterolemia 260711472 will increase her dose from 20 to 40 mg since her LDL is not at goal. Schizophrenia 47664567 o n meds, living in a detention and followed by psych. [id number] Main Office [address] [address] [place] [address] 05/06/2015 14:03:50 05/06/2015 15:26:34 Type 2 diabetes mellitus 90352005 Pure hypercholesterolemia 788902440 will increase her dose from 20 to 40 mg since her LDL is not at goal. Allergic rhinitis 57835495 continue current the [facility] [id number] Scooter Amador MD Main Office [address] [address] [place] [address] 08/10/2015 14:23:33 08/10/2015 15:23:14 Type 2 diabetes mellitus 20848803 E11.9 her A1C has been at goal in the past. She is c/w her meds. Gynecologi c examination 92042997 Z01.411 Screening for malignant neoplasm of breast 282438984 Z12.39 she has never had a mammogram because she has been anxious about going but states that she feels she is now ready. Tobacco de pendence syndrome 68721147 F17.290 we spoke about quitting. She stopped smoking in the past during each of her pregnancie s. [id number] Mikki Bertrand Main Office [address] [address] [place] [address] 11/09/2015 14:31:59 11/09/2015 15:27:25 Type 2 diabetes mellitus 10302550 E11.9 her A1C is at goal in the past. She is c/w her meds. Schizophrenia 13148572 F 20.3 on meds, living in a detention and followed by psych. Tobacco de pendence syndrome 07803355 F17.290 we spoke about quitting. She stopped smoking in the past during each of her pregnancie s. Pure hypercholesterolemia 892499820 E78.0 we increased her dose from 20 to 40 mg since her LDL was not at goal. Recheck fasting lipid level. Chest pain 26724860 R07. 9 she is at high risk for heart disease because of her smoking and diabetes [id number] Scooter Amador MD Main Office [address] [address] [place] [address] 02/16/2016 12:45:58 02/16/2016 13:25:59 Type 2 diabetes mellitus 23676788 E11.9 her A1C is at goal in the past. She is c/w her meds. Schizophrenia 83103020 F 20.3 on meds, living in a detention and followed by psych. [id number] Scooter Amador MD Main Office [address] [address] [place] [address] 06/30/2016 15:03:47 06/30/2016 15:45:43 Injury of finger 54836331 S69.82XA L big finger injury due to fall. XRAys to r/o fracture. Immobiliza tions with splint, ice several times daily and NSAIDs as directed for 7-10 days. referral to hand specialist . [id number] Vanessa benson Main Office [address] [address] [place] [address] 09/22/2016 15:06:27 09/22/2016 16:05:08 Cough 01675309 R05 Acute pharyngitis 130655 003 J02.9 Acute sinusitis 17650108 J01.90 Wheezing 47332118 R06.2 [id number] Scooter Amador MD Main Office [address] [address] [place] [address] 10/31/2016 13:40:19 10/31/2016 14:46:59 Adult health examination 216068031 Z00.00 UTD with immunizati ons. Had a PAP done Jul 2015. Type 2 irasema betes mellitus 73926363 E11.9 her A1C is a little above goal. She is c/w her meds. She will try to make some changes and we will f/u in 3 months w/o making any changes in meds right now. We will make an eye appointmen t for her. Schizophrenia 15595384 F 18.3 on meds, living in a detention and followed by psych. Tobacco de pendence syndrome 14872745 F17.290 we spoke about quitting. She stopped smoking in the past during each of her pregnancie s. Hyperlipidemia 88078352 E78.5 We increased her med at a previous visit and will recheck her fasting lipid level. [id number] Scooter Amador MD Main Office [address] [address] [place] [address] 12/25/2016 11:34:50 12/25/2016 12:20:54 Acute conjunctivitis 08844943 H10.33 Nasal congestion 8431414 0 R09.81 [id number] Scooter Amador MD Main Office [address] [address] [place] [address] 03/06/2017 12:39:50 03/06/2017 13:33:42 Type 2 diabetes mellitus 98404565 E11.9 Her A1C continues to rise as does her weight. We will add januvia to her regimen. Schizophrenia 12096829 F 18.3 on meds, living in a detention and followed by psych. [id number] Scooter Amador MD Main Office [address] [address] [place] [address] 05/10/2017 15:11:49 05/10/2017 16:27:12 Sore throat 535043070 J02.9 Pneumonia 172900659 J18. 9 Wheezing 76945245 R06.2 is running low on proair - has used it past few days - will renew [id number] Scooter Amador MD Main Office [address] [facility] [address] [facility] [place] [place] [address] 05/24/2017 09:33:03 05/24/2017 11:17:36 Dyspnea 951776474 R06.00 much improved p pna rx pt had severe airway obstructio n - ? asthma vs copd (more likely give tob exp) - will recheck spirometry p proair pt states she does not like proair - it makes her worse - most likely she is experienci ng some degree of a mild SE - whether it be laryngospa sm or other - but cannot convince her to use this again in the future despite repeated attempts at education reviewed results of spirometry p alb - minimal improvemen t. pt declines using inhalers and defers going to see pulmonolog ist - she states she will attempt to quit smoking c ankit gums - it has helped before Pneumonia 720766464 J18. 9 resolved s/p rx Tobacco de pendence syndrome 46588327 F17.200 strongly encouraged tob cessation - she states she will try ankit gums again - this had worked for her in the past Cough 75689735 R05 most likely d/t prolonged tobacco exp. - see below Chronic ob structive pulmonary disease 50338894 J44.9 see above [id number] Scooter Amador MD Main Office [address] [facility] [address] [facility] [place] [address] 06/06/2017 14:22:12 06/06/2017 16:18:04 Type 2 diabetes mellitus 42271681 E11.9 Since her A1C was rising we did a script for januvia which was not covered by her insurance. We then did a script for actos which she only filled about 2-3 weeks ago. Her A1C has come down slightly so we will not make any changes at this time. Chronic ob structive pulmonary disease 80477070 J44.9 We discussed quitting smoking to help prevent further progressio n. Since she denies SOB and exam is normal we will not start any meds but will monitor her function. [id number] Ana María crain Main Office [address] [facility] [address] [place] [address] 07/06/2017 12:59:15 07/06/2017 14:07:16 Uncontrolled type 2 diabetes mellitus 945574854 E11.65 Total time spent teaching and coordinati ng diabetic care 45 minutes. Basic physiology of Type II Diabetes Mellitus was reviewed. Glucose records were reviewed. Pt. was instructed on use of new glucose meter and advised to monitor glucose 3 times per day ; before each main meal. Goal for fasting glucose is 80-130 and 1-2 hrs after the meal under 180. Pt. was instructed on lowering total calories and carbs. Pt,. will be set up to see notionist at [facility]. Pt. was advised to start exercise activity by walking 30 min at least 3 times weekly and increase weekly or by weekly to 4-6 day per week. If unable to walk , pt. should use other exercise modalities /equipment that is stationary at home or in the gym for that amount of time weekly or water exercises. Increase Januvia to 100 mg daily. Restrt Pioglitazo ne 15 mg daily. Continue Metfromin 1000 mg BID. F/u with log in 3 m. Body mass index 30+ - obesity 606764250 Z68.34 Obesity 115154802 E66.9 [id number] Scooter Amador MD Main Office [address] [facility] [address] [place] [address] 09/05/2017 12:48:05 09/05/2017 13:58:41 Uncontrolled type 2 diabetes mellitus 615223508 E11.65 Excellent improvemen t in A1C which is now less than 7.0 again (down to 6.8). She will continue with current mgmt since it is working. Dysuria 97243960 R30.0 No longer with symptoms so will send culture and will not do abx for now. She was advised to drink more fluids. Schizophrenia 51126417 F 18.3 on meds, living on her own with supervisguera cota and followed by psych. [id number] Deja Murphy PA-C Main Office [address] [facility] [address] [place] [address] 10/23/2017 14:27:22 10/23/2017 15:48:51 Uncontrolled type 2 diabetes mellitus 102195423 E11.65 STable type II Diabetes w/o complicati ons. Continue current meds. Discussed lowering calories even further and increasing exercise activity. Test glucose 1 time per day and bring glucose log to next visit. F/u 3 m. Repeat labs. Upper resp iratory infection 92538848 J06.9 Wheezing 71913559 R06.2 Chronic ob structive pulmonary disease 59900531 J44.9 Body mass index 30+ - obesity 781588076 E66.01 Z68.35 [id number] Scooter Amador MD Main Office [address] [address] [place] [address] 02/27/2018 13:02:09 02/27/2018 14:22:54 Adult health examination 229483162 Z00.00 UTD with immunizati ons. Had a PAP done Jul 2015 and will return for a PAP Genital warts 664694125 A63.0 Will try topical treatment and if persists will Uncontroll ed type 2 diabetes mellitus 318095032 E11.65 A1C continues to be at goal below 7.0 and is currently at 6.3 . She will continue with current mgmt since it is working. [id number] Scooter Amador MD Main Office [address] [place] [address] [place] [address] 06/06/2018 12:57:48 06/06/2018 13:58:46 Uncontrolled type 2 diabetes mellitus 360625943 E11.65 A1C continues to be at goal below 7.0 and is currently at 6.6. She will continue with current mgmt since it is working. Schizophrenia 71400050 F 20.3 on meds, living on her own with supervisio n and followed by psych. [id number] Scooter Amador MD Main Office [address] [place] [address] [place] [address] 08/22/2018 13:25:23 08/22/2018 14:17:54 Acute pharyngitis 129962024 J02.9 Cough 53161363 R05 She will use robitussin prn. [id number] Scooter Amador MD Main Office [address] [place] [address] [place] [address] 03/20/2019 15:00:36 03/20/2019 15:56:26 Uncontrolled type 2 diabetes mellitus 743710482 E11.65 A1C continues to be at goal below 7.0 and is currently at 6.7. She will continue with current mgmt since it is working. Schizophrenia 96552244 F 20.3 on meds, living on her own with supervisio n and followed by psych. Chronic ob structive pulmonary disease 20427110 J44.9 Continues to smoke Requires a tetanus booster 395545338 Z23 [id number] Scooter Amador MD Main Office [address] [place] [address] 06/23/2019 14:34:34 06/23/2019 15:59:51 Adult health examination 813166973 Z00.00 UTD with immunizati ons. Had a PAP done Jul 2015 and will return for a PAP Type 2 irasema betes mellitus without complication 005054069 E11.9 Body mass index 30+ - obesity 101957120 E66.01 Z68.36 Schizophrenia 68553057 F 20.3 on meds, living on her own with supervis n and followed by psych. [id number] Scooter Amador MD Main Office [address] [place] [address] 04/13/2020 12:37:21 04/13/2020 13:38:09 Uncontrolled type 2 diabetes mellitus 956084928 E11.65 A1C continues to be at goal below 7.0 and is currently at 6.7. She will continue with current mgmt since it is working. Lateral ep icondylitis of right humerus 9806578793 85495 M77.11 Chronic ob structive pulmonary disease 23705234 J44.9 Continues to smoke Schizophrenia 53825669 F 20.3 on meds, [facility]. Tobacco de pendence syndrome 88254828 F17.290 we spoke about quitting. She stopped smoking in the past during each of her pregnancie s. [id number] Scooter Amador MD Main Office [address] [place] [address] 07/15/2020 14:10:04 07/15/2020 15:21:15 Adult health examination 150055521 Z00.00 UTD with immunizati ons but refuses a flu vaccine. Had a PAP done Jul 2015 and will return for a PAP Needs infl uenza immunization 962454326 Z23 Uncontroll ed type 2 diabetes mellitus 765538255 E11.65 Her diabetes is no longer uncontroll ed; her A1C today is 7.0. She was encouraged to stay with the same mgmt. Schizophrenia 06262592 F 18.3 on meds, [facility] and [facility] psych. Tobacco de pendence syndrome 32550962 F17.290 we spoke about quitting. She stopped smoking in the past during each of her pregnancie s. Body mass index 30+ - obesity 202757335 E66.01 [id number] Scooter Amador MD Main Office [address] [facility] [address] [place] [address] 10/14/2020 13:41:53 10/14/2020 14:42:06 Uncontrolled type 2 diabetes mellitus [id number] E11.65 Her A1C increased form 7.0 to 7.7. We will increase her actos from 15 to 30 mg and see her back in 3 months. Hyperlipidemia 87412410 E78.5 We increased her med at a previous visit and LDL is now at goal. Schizophrenia 57186805 F 18.3 on meds, living on her own with [facility] and followed by psych. Chronic ob structive pulmonary disease 65948617 J44.9 Continues to smoke [id number] Scooter Amador MD Main Office [address] [address] 02/07/2021 14:23:01 02/07/2021 15:22:47 Uncontrolled type 2 diabetes mellitus 244964315 E11.65 Her A1C continues to increase despite being c/w her meds. Will increase her actos from 30 to 45 mg and she will continue metformin trajenta. Chronic ob structive pulmonary disease 58734719 J44.9 Continues to smoke Hyperlipidemia 54561725 E78.5 LDL at goal. Will check fasting lipid level. Schizophrenia 52090218 F 18.3 on meds, [facility] and followed by psych. [id number] Scooter Amador MD [facility] [address] [facility] [address] [place] [address] 03/17/2021 13:57:16 03/18/2021 14:44:54 Uncontrolled type 2 diabetes mellitus [id number] E11.65 She has been having SE's since increasing her dose of actos. The ankle/foot swelling and the nausea and bloating may be from the increased dose but it is doubtful that the other SE's are as a result of the actos. She will hold the actos for now and will intensify her lifestyle changes to try to get better control of her sugars. We will recheck her diabetes in 2 months. Tobacco de pendence syndrome 29241653 F17.290 we spoke about quitting. She stopped smoking in the past during each of her pregnancie s. Anxiety 13983282 F41.9 It is doubtful that this is secondary to her actos. She will speak to her mental health provider about this. [id number] Scooter Amador MD Main Office [address] [place] [address] [place] [address] 06/28/2021 14:51:15 06/28/2021 15:56:27 Uncontrolled type 2 diabetes mellitus 648117756 E11.65 She was not able to tolerate the actos because of ankle swelling, nausea and bloating. She stopped this a couple of months ago and her SE's resolved. Unfortunat sheila her A1C increased from 8.1 to 9.3. We will add another po med and she understand s that she may need meds that require injections in the future. Schizophrenia 61540208 F 18.3 on meds, living on her own with [facility] and followed by psych. Hyperlipidemia 84958862 E78.5 LDL at goal. Will check fasting lipid level next appointmen t. [id number] Scooter Amador MD Main Office [address] [place] [address] [place] [address] 08/16/2021 13:29:39 08/16/2021 14:38:24 Tinea cruris [id number] B35.6 Candidiasis of vagina 72 653041 B37.3 [id number] Scooter Amador MD Main Office [address] [place] [address] [place] [address] 12/13/2021 12:41:16 12/13/2021 13:49:23 Adult health examination [id number] Z00.00 UTD with immunizati ons. Had a PAP done Jul 2015 and will return for a PAP. Does not want to do one today. Uncontroll ed type 2 diabetes mellitus 094890281 E11.65 She was not able to tolerate the actos because of ankle swelling, nausea and bloating. She stopped this a couple of months ago and her SE's resolved. Unfortunat sheila her A1C increased from 8.1 to 9.3. We will add another po med and she understand s that she may need meds that require injections in the future. Chronic ob structive pulmonary disease 61055370 J44.9 Continues to smoke Hyperlipidemia 90746720 E78.5 LDL at goal. Will check fasting lipid level. Schizophrenia 09258315 F 18.3 on meds, living on her own with [facility] and followed by psych. Body mass index 30+ - obesity 215079047 E66.01 Z68.33 [id number] Scooter Amador MD Main Office [address] [facility] [address] [place] [address] 08/29/2022 13:05:29 08/29/2022 14:30:53 Uncontrolled type 2 diabetes mellitus 135603989 E11.65 She was not able to tolerate the actos because of ankle swelling, nausea and bloating. She stopped this and her SE's resolved. . We added jardiance and tradjenta and her A1C came down from 9.3 to 7.6. She will work on lifestyle changes to bring this down more. Allergic rhinitis 098569 04 J30.9 continue current mgmt Schizophrenia 74111892 F [age] on meds, living on her own with [facility] and followed by psych. [id number] Scooter Amador MD Main Office [address] [facility] [address] [place] [address] 04/24/2023 14:19:20 04/24/2023 15:26:54 Uncontrolled type 2 diabetes mellitus 471617013 E11.65 She was not able to tolerate the actos because of ankle swelling, nausea and bloating. She stopped this and her SE's resolved. . We added jardiance and tradjenta and her A1C came down from 9.3 to 7.6. She checks her sugars and says that they are generally in the low 100's. Schizophrenia 42959982 F 18.3 on meds, [facility] and [facility] by psych. Allergic rhinitis 152949 04 J30.9 continue current mgmt Chronic ob structive pulmonary disease 18820785 J44.9 Continues to smoke [id number] Scooter Amador MD Main Office [address] [place] [address] 08/07/2023 13:23:20 08/07/2023 14:27:58 Uncontrolled type 2 diabetes mellitus 107352566 E11.65 She was not able to tolerate the actos because of ankle swelling, nausea and bloating. She stopped this and her SE's resolved. . We added jardiance and tradjenta and her A1C came down from 9.3 to 7.2. She checks her sugars and says that they are generally in the low 100's. Adult heal th examination 834253891 Z00.00 UTD with immunizati ons. Had a PAP done Jul 2015 and will return for a PAP. Does not want to do one today. Screening for malignant neoplasm of colon 991201426 Z12.11 Tobacco de pendence syndrome 26121532 F17.290 we spoke about quitting. She stopped smoking in the past during each of her pregnancie s. Chronic ob structive pulmonary disease 88630376 J44.9 Continues to smoke Hyperlipidemia 90395397 E78.5 LDL at goal. Will check fasting lipid level. Schizophrenia 41844872 F [age] on meds, [facility] and followed by psych. Has some mild depression which is followed by her psych provider. [id number] MARIE Pfeiffer Main Office [address] [facility] [address] [place] [address] 11/23/2023 11:21:25 11/23/2023 12:21:38 Uncontrolled type 2 diabetes mellitus 788949293 E11.65 A1C increased from 7.2 to 7.3, Would like to continue on metformin and tradjenta instead of adding med, will stay consistent with exercise and trying to eat better. Does exercises in 3 sets to get through during the day. Tradjenta refilled. Schizophrenia 82400416 F 18.3 on meds, [facility] and followed by psych. Allergic rhinitis 843531 04 J30.9 continue current mgmt Chronic ob structive pulmonary disease 76333883 J44.9 Continues to smoke [id number] Scooter Amador MD Main Office [address] [facility] [address] [facility] [place] [address] 02/27/2024 14:25:32 02/27/2024 15:27:48 Uncontrolled type 2 diabetes mellitus 586043574 E11.65 She was not able to tolerate the Actos because of ankle swelling, nausea and bloating. She stopped this and her SE's resolved. . We added jardiance and tradjenta and her A1C came down from 9.3 to 7.2. But the jardiance is no longer on formulary. She also stopped the tradjenta for unclear reasons but will restart it. Fatigue 57815488 R53.83 Hyperlipidemia 96249637 E78.5 Last LDL at goal. Will check fasting lipid level. Schizophrenia 64450956 F 18.3 on meds, living on her own with [facility] and followed by psych. Has some mild depression which is followed by her psych provider. Health Concerns Section Related Observation LastModified by Organization Detai ls LastModified Time None Recorded Concern Status LastModified by Organization Details LastModified Time None Recorded Advance Directives Directive Y: Payers Encounter Date Sequence Insurance Name Policy Number Policy Chopra Covered Member ID Chopra Member ID Guarantor Name 08/29/2022 1 [place] [employer] Aura Sergio Sana [id number] Aura Hood 08/29/2022 2 [place] [facility] Aura Sergio Sana [id number] Aura Hood 04/24/2023 1 [place] [employer] Aura Sergio Sana [id number] Aura Hood 04/24/2023 2 [place] [facility] Aura Sergio Sana [id number] Aura Hood 08/07/2023 1 [place] [employer] Aura Sergio Sana [id number] Aura Hood 08/07/2023 2 [place] [facility] Aura Hood [id number] Aura Hood 11/23/2023 1 MEDICARE B[place] [facility] Aura Hood [id number] Aura Hood 11/23/2023 2 [place] [facility] Aura Hood [id number] Aura Hood 02/27/2024 1 [place] [facility] Aura Hood [id number] Aura Hood 02/27/2024 2 [place] [facility] Aura Hood [id number] Aura Hood Notes Date Note Type Note Provider Name and Address Organization Details Recorded Time 08/29/2022 text/html Diabetes F/URepo rted bypatient.Notes:She does not follow her sugars but has been c/w meds and tolerating them well. She has not been watching her diet and often eats a lot of carbs and eats late at night. She stopped the actos because of SE's and is now taking tradjenta and jardiance along with the metformin.Hyperlipidem iaReported bypatient.Type of hyperlipidemia:hyperch olesterolemia Duration:chronic Control:at goal Current Therapy:currently taking: (lovastatin); last LDL level: (74) Compliance:noncomplian t with diet;does not exercise Complications:no coronary artery disease; no peripheral artery disease; no cardiovascular disease Risk Factors:diabetes;smoki ng;obesity Her schizophrenia is stable and she has support from the [facility] and is followed by psych. Scooter Amador MD [address] [address], [place], [address], [facility] 08/29/2022 17:16:25 04/24/2023 text/html Diabetes F/URepo rted bypatient.Context:norm al range of home blood sugars (in the low 100s) (she has been checking recently and states that most sugars are in the low 100's); checking feet regularly; not missing doses of medications; no side effects from medications Associated Symptoms:no sweats; no headaches; no confusion; no increased thirst; no blurred vision; no numbness of feet; no calluses on feet;weight loss (6 lbs)Notes:She stopped the actos because of SE's and is now taking tradjenta and jardiance along with the metformin.Hyperlipidem iaReported bypatient.Type of hyperlipidemia:hyperch olesterolemia Duration:chronic Control:at goal Current Therapy:currently taking: (lovastatin); last LDL level: (74) Compliance:noncomplian t with diet;does not exercise Complications:no coronary artery disease; no peripheral artery disease; no cardiovascular disease Risk Factors:diabetes;smoki ng;obesity Her schizophrenia is stable and she has support from the [facility] and is followed by psych. She has had problems in the past with hearing voices but this has not been a problem recently. Scooter Amador MD [address], [address], [facility] 04/24/2023 17:14:52 08/07/2023 text/html Generic HPI TemplateReported bypatient.Notes:She is followed by psych and is also by the [facility]. She lives on her own with supervision and has been stable on meds.We spoke about doing her PAP/pelvic today but she wants to wait until next appointment.Her diabetes has improved coming down more than 2 points over the last 2 years.Medicare Annual Wellness VisitReported bypatient.Diet and Nutrition:high caloric intake;high carbohydrate meals Fracture Risk:no history of fractures Physical Activity:does not exercise on a regular basis Depression Risk:feels sad, empty, or tearful(under some control with meds and followed by psych.);history of mood disorders;history of depression Orientation:no disorientation to time; no disorientation to date; no disorientation to place Concentration and Memory:no decreased concentrating ability; no memory lapses or loss; does not forget words Hearing:no loss of hearing Vision:no vision problems Activities of Daily Living:able to bathe with limited or no assistance; able to contol urination and bowels; able to dress with limited or no assistance; able to feed self with limited or no assistance; able to get out of chair or bed with limited or no assistance; able to groom with limited or no assistance; able to toilet with limited or no assistance Instrumental Activities of Daily Living:able to do house work with limited or no assistance; able to grocery shop with limited or no assistance; able to manage medications with limited or no assistance; able to manage money with limited or no assistance; able to prepare meals with limited or no assistance; able to use the phone with limited or no assistance Falls Risk Assessment:no frequent falls while walking Scooter Amador MD [address] [facility] [address], [place], [address], [facility] 08/09/2023 07:47:33 11/23/2023 text/html Generic HPI TemplateReported bypatient.Notes:She is followed by psych and is also by the DM. She lives on her own with supervision and has been stable on meds.Her diabetes has improved coming down more than 2 points over the last 2 years. Tried farxiga with adverse effects recently, stopped it on 11/06. As she was not able to tolerate meds. stuffy nose, dizziness, fatigue, nausea, abd pain.When she stopped it had less congestion, abd pain, nausea, had was clearer.Has been on metformin for a while and consistent with that, is also on tradjenta daily, would like to try with just 2 meds. MARIE Pfeiffer [address] [facility] [address], [place], [address], [facility] 11/23/2023 12:21:58 02/27/2024 text/html Diabetes F/URepo rted bypatient.Context:norm al range of home blood sugars (in the low 100s) (she has been checking recently and states that most sugars are in the low 100's); checking feet regularly; not missing doses of medications; no side effects from medications Associated Symptoms:no sweats; no headaches; no confusion; no increased thirst; no blurred vision; no numbness of feet; no calluses on feet;weight gain (7 lbs)(since her last appointment.)Notes:She stopped the Actos because of SE's and is now taking only the metformin. The jardiance is not on her formulary and she stopped the tradjenta for unclear reasons.Hyperlipidemia Reported bypatient.Type of hyperlipidemia:hyperch olesterolemia Duration:chronic Control:at goal Current Therapy:currently taking: (lovastatin); last LDL level: (74) Compliance:noncomplian t with diet;does not exercise Complications:no coronary artery disease; no peripheral artery disease; no cardiovascular disease Risk Factors:diabetes;smoki ng;obesity Her schizophrenia is stable and she has support from the [facility] and is followed by psych. She has had problems in the past with hearing voices but this has not been a problem recently. Scooter Amador MD [address] [address], [place], [address], [facility] 02/27/2024 18:37:36 OBGyn Episode No OBEpisode recorded.
[2024-10-28 13:51] LABS: Basophils Percent Auto 0.4 % (0-2); Eosinophils Absolute Auto 0.1 X10*3/uL (0.0-0.4); Eosinophils Percent Auto 0.7 % (0-4); Hematocrit 48.4 % (37.0-47.0); Hemoglobin 16.5 g/dl (12.0-16.0); Imm Gran Abs Auto 0.03 X10*3/uL (0.00-0.03); Imm Gran Pct Auto 0.4 % (0.0-0.4); Lymphocytes Absolute Auto 3.6 X10*3/uL (1.2-4.9); Mean Corpuscular HGB Conc 34.1 g/dl (31.0-35.0); Mean Corpuscular Hemoglobin 29.9 pg (27.0-33.0); Mean Corpuscular Volume 87.7 fL (80.0-98.0); Mean Platelet Volume 10.8 fL (9.4-12.3); Monocytes Absolute Auto 0.7 X10*3/uL (0.1-1.2); Monocytes Percent Auto 8.5 % (2-11); Neutrophils Absolute Auto 3.6 x10*3/uL (2.0-8.3); Platelet Count 184 X10*3/uL (160-400); Red Blood Count 5.52 X10*6/uL (4.20-5.50); Red Cell Distribution Width 12.7 % (11.0-16.0); White Blood Count 8.1 X10*3/uL (4.8-10.8)
== END 2024-10-28 13:18 | disposition home or self-care (01) ==
LOC: HO.LABR 13:17
PROVIDERS: PCP Internal Medicine; Visit Provider Psychiatry & Neurology Psychiatry
DX: Z79.899 Other long term (current) drug therapy (principal)
CPT/HCPCS: 36415; 85025

== ENCOUNTER 2024-11-25 15:02 | Outpatient (REF) | payer MEDICARE, MEDICAID, SELFPAY ==
[2024-11-25 15:18] LABS: MANUAL DIFF FLAG NO
[2024-11-25 15:54] LABS: Basophils Percent Auto 0.4 % (0-2); Eosinophils Absolute Auto 0.1 X10*3/uL (0.0-0.4); Eosinophils Percent Auto 0.8 % (0-4); Hematocrit 47.8 % (37.0-47.0); Hemoglobin 16.3 g/dl (12.0-16.0); Imm Gran Abs Auto 0.03 X10*3/uL (0.00-0.03); Imm Gran Pct Auto 0.3 % (0.0-0.4); Lymphocytes Absolute Auto 3.8 X10*3/uL (1.2-4.9); Lymphocytes Percent Auto 42.6 % (20-40); Mean Corpuscular HGB Conc 34.1 g/dl (31.0-35.0); Mean Corpuscular Hemoglobin 30.2 pg (27.0-33.0); Mean Corpuscular Volume 88.7 fL (80.0-98.0); Mean Platelet Volume 10.9 fL (9.4-12.3); Monocytes Absolute Auto 0.6 X10*3/uL (0.1-1.2); Neutrophils Absolute Auto 4.4 x10*3/uL (2.0-8.3); Neutrophils Percent Auto 48.9 % (45-73); Platelet Count 197 X10*3/uL (160-400); Red Blood Count 5.39 X10*6/uL (4.20-5.50); Red Cell Distribution Width 13.2 % (11.0-16.0); White Blood Count 8.9 X10*3/uL (4.8-10.8)
--- OUTSIDE RECORDS SUMMARY | 2024-11-25 19:06 | XMS_ITS | Data Portability ---
Author Organization [facility], Main Office Address [address] [facility] [address] [place] [address] Care Team Providers Care Shank Stitcher Name Role Phone MARLIN AMADOR Primary Care Provider VIVI COON Psychologist CIERA ROCKWELL Referring Provider Assessment No assessment recorded. Plan of Treatment Reminders Order Date Submit Date Provider Last Modified By Organization Details Last Modified Time Details Appointments None recorde d. Lab hemoglo bin A1C, fingers tick 2023 024 [email or web address] In-Office Order, Internal Use Only DO Not Attach Compendium DO Not Attach Compendium, Do Not Delete/merge, [id number] 4 15:14:28 microal bumin, urine 2023 024 OMAR [facility] (Centralized Electronic Ordering - All Locations), Patient Can Go To The Location Of Their Choice, [id number] 4 12:06:20 LDL, direct, serum 2023 024 OMAR [facility], [address], [place], [address], 4 12:06:19 HDL cholest monalisa, serum 2023 024 [email or web address] [facility] (Centralized Electronic Ordering - All Locations), Patient Can Go To The Location Of Their Choice, [id number] 5 09:12:13 CBC w/ auto diff 2023 024 OMAR [facility], [address], [place], [address], 4 12:06:16 BMP, serum or plasma 2023 024 OMAR [facility], [address], [place], [address], 4 12:06:17 TSH, ultra-s ensitiv e, serum 2023 024 OMAR [facility], [address], [place], [address], 4 12:06:21 hemoglo bin A1C, fingers tick 2022 023 [email or web address] In-Office Order, Internal Use Only DO Not Attach Compendium DO Not Attach Compendium, Do Not Delete/merge, [id number] 3 14:11:57 microal bumin, urine 2022 023 [email or web address] [facility], [address], [address], [place], [address], 3 07:40:42 CMP, serum or plasma 2022 023 [email or web address] [facility], [address], [address], [place], [address], 4 08:06:34 lipid panel, serum 2022 023 OMAR [facility], [address], [address], [place], [address], 4 12:06:18 CBC w/ auto diff 2022 023 [email or web address] [facility], [address], [address], [place], [address], 3 07:40:42 HbA1c (hemogl obin A1c), blood 2022 023 [email or web address] [facility], [address], [address], [place], [address], 4 10:48:02 microal bumin, urine 2022 023 [email or web address] [facility], [address], [address], [place], [address], 3 11:57:56 CMP, serum or plasma 2022 023 [email or web address] [facility], [address], [address], [place], [address], 4 10:48:02 lipid panel, serum 2022 023 OMAR [facility], [address], [address], [place], [address], 3 15:18:50 CBC w/ auto diff 2022 023 [email or web address] [facility], [address], [address], [place], [address], 3 11:57:56 hemoglo bin A1C, fingers tick 2021 022 [email or web address] In-Office Order, Internal Use Only DO Not Attach Compendium DO Not Attach Compendium, Do Not Delete/merge, [id number] 2 14:18:57 Referral diabeti c ophthal mology referra l - Type 2 diabete s requiri ng regular eye exams. 2022 023 romero [facility], [address], [place], [address], 4 08:46:58 gastroe nterolo gist referra l - Needs colon cancer screeni ng 2022 023 [email or web address] Not available 3 15:13:27 Procedures colonos copy screeni ng (PROC) 2022 023 [email or web address] In-Office Order, Internal Use Only DO Not Attach Compendium DO Not Attach Compendium, Do Not Delete/merge, [id number] 3 15:13:03 Surgeries None recorde d. Imaging None recorde d. Medication Orders Tradjen ta 5 mg tablet 2023 024 [facility]38198, [address] [place] [address], [id number], 4 15:14:32 Tradjen ta 5 mg tablet 2023 024 [email or web address] [facility] #37538, [address] [place] [address], [id number], 4 14:39:34 Vitamin C 250 mg tablet 2021 022 [facility] #44438, [address] [place] [address], [id number], 2 14:22:47 metform in 1,000 mg tablet 2021 022 [facility] #96356, [address] [place] [address], [id number], 2 13:55:17 Jardian ce 25 mg tablet 2021 022 [facility] #02377, [address] [place] [address], [id number], 4 09:05:02 linagli ptin 5 mg tablet 2021 022 [email or web address] [facility] #07395, [address] [place] [address], [id number], 4 12:01:02 Patient TargetsNo targets recorded. Patient Instructions Encounter Date Encounter Id Patient Instructions Last Modified By Organization Details Last Modified Time 08/29/2022 [id number] allergies: care instructions [email or web address] Not available 08/29/2022 14:22:36 managing your allergies: care instructions [email or web address] Not available 08/29/2022 14:22:36 schizophrenia: care instructions [email or web address] Not available 08/29/2022 17:03:18 type 2 diabetes: care instructions [email or web address] Not available 08/29/2022 14:18:57 04/24/2023 [id number] allergies: care instructions acennerazzo Not available 04/24/2023 16:24:27 managing your allergies: care instructions acennerazzo Not available 04/24/2023 16:24:27 schizophrenia: care instructions acennerazzo Not available 04/24/2023 16:24:27 type 2 diabetes: care instructions acennerazzo Not available 04/24/2023 16:24:27 chronic obstructive pulmonary disease (COPD): care instructions acennerazzo Not available 04/24/2023 15:18:47 learning about copd and how to prevent lung infections acennerazzo Not available 04/24/2023 15:18:47 08/07/2023 [id number] deciding about using medicines to quit smoking [...] cancer acennerazzo Not available 08/07/2023 14:15:06 11/23/2023 [id number] allergies: care instructions [email or web address] Not available 11/23/2023 [...] concerns [email or web address] Not available 11/23/2023 12:04:13 02/27/2024 [id number] schizophrenia: care instructions acennerazzo Not available 02/27/2024 18:37:24 type 2 diabetes: care instructions acennerazzo Not available 02/27/2024 15:14:26 Reason for Referral Diabetic Ophthalmology Refer ral for Uncontrolled type 2 diabetes mellitus Type 2 diabetes requiring regular eye exams. Referring Physician: Marlin Amador [facility], Encounter Date: 08/07/2023 Marketing Content Specialist Referral for Screening for malignant neoplasm of colon Needs colon cancer screening Referring Physician: Marlin Amador [facility], Encounter Date: 08/07/2023 Results Created Date Observation Date Name Description Value Unit Range Abnormal Flag Note LastModifiedBy Organization Detail LastModifiedTime 08/29/20 22 08/29/2022 hemog lobin A1C, finge rstic k A1C 7.6 % 4-6 abnormal Not Available In-Office Order Internal Use Only DO Not Attach Compendium DO Not Attach Compendium, Do Not Delete/merge, [id number] 08/29/2022 13:24:28 08/07/20 23 08/07/2023 hemog lobin A1C, finge rstic k A1C 7.2 % 4-6 Not Available In-Office Order Internal Use Only DO Not Attach Compendium DO Not Attach Compendium, Do Not Delete/merge, [id number] 08/07/2023 13:25:15 11/23/19 24 11/23/2023 hemog lobin A1C, lj rslilian k A1C 7.3 % 4-6 abnormal Not Available In-Office Order Internal Use Only DO Not Attach Compendium DO Not Attach Compendium, Do Not Delete/merge, [id number] 11/23/2023 12:17:33 02/27/20 24 02/28/2024 CBC WITH DIFFE RENTI AL/PL ATELE T WBC 9.5 x10e3 /uL 3.4-10 .8 Not Available [facility] ([facility]) [address] [facility], [place], [address], 02/28/2024 12:06:16 02/27/20 24 02/28/2024 CBC WITH DIFFE RENTI AL/PL ATELE T RBC 5.03 x10e6 /uL 3.77-5 .28 Not Available [facility] ([facility]) [address] [facility], [place], [address], 02/28/2024 12:06:16 02/27/20 24 02/28/2024 CBC WITH DIFFE RENTI AL/PL ATELE T hemoglobin 15.3 g/dL 11.1-1 5.9 Not Available [facility] ([facility]) [address] [facility], [place], [address], 02/28/2024 12:06:16 02/27/20 24 02/28/2024 CBC WITH DIFFE RENTI AL/PL ATELE T hematocrit 46.4 % 34.0-4 6.6 Not Available [facility] ([facility]) [address] [facility], [place], [address], 02/28/2024 12:06:16 02/27/20 24 02/28/2024 CBC WITH DIFFE RENTI AL/PL ATELE T MCV 92 fL 79-97 Not Available [facility] ([facility]) [address] [place], [address], 02/28/2024 12:06:16 02/27/20 24 02/28/2024 CBC WITH DIFFE RENTI AL/PL ATELE T MCH 30.4 pg 26.6-3 3.0 Not Available [facility] ([facility]) [address] [facility], [place], [address], 02/28/2024 12:06:16 02/27/20 24 02/28/2024 CBC WITH DIFFE RENTI AL/PL ATELE T MCHC 33.0 g/dL 31.5-3 5.7 Not Available [facility] ([facility]) [address] [facility], [place], [address], 02/28/2024 12:06:16 02/27/20 24 02/28/2024 CBC WITH DIFFE RENTI AL/PL ATELE T RDW 13.5 % 11.7-1 5.4 Not Available [facility] ([facility]) [address] [facility], [place], [address], 02/28/2024 12:06:16 02/27/20 24 02/28/2024 CBC WITH DIFFE RENTI AL/PL ATELE T platelets 222 x10e3 /uL 150-45 0 Not Available [facility] ([facility]) [address] [facility], [place], [address], 02/28/2024 12:06:16 02/27/20 24 02/28/2024 CBC WITH DIFFE RENTI AL/PL ATELE T neutrophils 47 % not estab. Not Available [facility] ([facility]) [address] [facility], [place], [address], 02/28/2024 12:06:16 02/27/20 24 02/28/2024 CBC WITH DIFFE RENTI AL/PL ATELE T lymphs 44 % not estab. Not Available [facility] ([facility]) [address] [facility], [place], [address], 02/28/2024 12:06:16 02/27/20 24 02/28/2024 CBC WITH DIFFE RENTI AL/PL ATELE T monocytes 8 % not estab. Not Available [facility] ([facility]) [address] [facility], [place], [address], 02/28/2024 12:06:16 02/27/20 24 02/28/2024 CBC WITH DIFFE RENTI AL/PL ATELE T eos 1 % not estab. Not Available [facility] ([facility]) [address] [facility], [place], [address], 02/28/2024 12:06:16 02/27/20 24 02/28/2024 CBC WITH DIFFE RENTI AL/PL ATELE T basos 0 % not estab. Not Available [facility] ([facility]) [address] [facility], [place], [address], 02/28/2024 12:06:16 02/27/20 24 02/28/2024 CBC WITH DIFFE RENTI AL/PL ATELE T immature cells CLASS A REGIONAL DRIVERS Not Available [facility] ([facility]) [address] [place], [address], 02/28/2024 12:06:16 02/27/20 24 02/28/2024 CBC WITH DIFFE RENTI AL/PL ATELE T neutrophils (absolute) 4.4 x10e3 /uL 1.4-7. 0 Not Available [facility] ([facility]) [address] [facility], [place], [address], 02/28/2024 12:06:16 02/27/20 24 02/28/2024 CBC WITH DIFFE RENTI AL/PL ATELE T lymphs (absolute) 4.2 x10e3 /uL 0.7-3. 1 above high normal Not Available [facility] ([facility]) [address] [facility], [place], [address], 02/28/2024 12:06:16 02/27/20 24 02/28/2024 CBC WITH DIFFE RENTI AL/PL ATELE T monocytes(ab solute) 0.7 x10e3 /uL 0.1-0. 9 Not Available [facility] ([facility]) [address] [facility], [place], [address], 02/28/2024 12:06:16 02/27/20 24 02/28/2024 CBC WITH DIFFE RENTI AL/PL ATELE T eos (absolute) 0.1 x10e3 /uL 0.0-0. 4 Not Available [facility] ([facility]) [address] [facility], [place], [address], 02/28/2024 12:06:16 02/27/20 24 02/28/2024 CBC WITH DIFFE RENTI AL/PL ATELE T baso (absolute) 0.0 x10e3 /uL 0.0-0. 2 Not Available [facility] ([facility]) [address] [facility], [place], [address], 02/28/2024 12:06:16 02/27/20 24 02/28/2024 CBC WITH DIFFE RENTI AL/PL ATELE T immature granulocytes 0 % not estab. Not Available [facility] ([facility]) [address] [facility], [place], [address], 02/28/2024 12:06:16 02/27/20 24 02/28/2024 CBC WITH DIFFE RENTI AL/PL ATELE T immature grans (abs) 0.0 x10e3 /uL 0.0-0. 1 Not Available [facility] ([facility]) [address] [place], [address], 02/28/2024 12:06:16 02/27/20 24 02/28/2024 CBC WITH DIFFE RENTI AL/PL ATELE T NRBC CLASS A REGIONAL DRIVERS Not Available [facility] ([facility]) [address] [facility], [place], [address], 02/28/2024 12:06:16 02/27/20 24 02/28/2024 CBC WITH DIFFE JAZMYN AL/PL CHANDRIKA T hematology comments: CLASS A REGIONAL DRIVERS Not Available [facility] ([facility]) [address] [facility] [place], [address], 02/28/2024 12:06:16 02/27/20 24 02/28/2024 BASIC METAB OLIC PANEL (8) glucose 151 mg/dL 70-99 above high normal Not Available [facility] ([facility]) [address] [facility] [place], [address], 02/28/2024 12:06:17 02/27/20 24 02/28/2024 BASIC METAB OLIC PANEL (8) BUN 6 mg/dL 6-24 Not Available [facility] ([facility]) [address] [facility] [place], [address], 02/28/2024 12:06:17 02/27/20 24 02/28/2024 BASIC METAB OLIC PANEL (8) creatinine 0.51 mg/dL 0.57-1 .00 below low normal Not Available [facility] ([facility]) [address] [facility] [place], [address], 02/28/2024 12:06:17 02/27/20 24 02/28/2024 BASIC METAB OLIC PANEL (8) eGFR 114 mL/mi n/1.7 3 >59 Not Available [facility] ([facility]) [address] [facility] [place], [address], 02/28/2024 12:06:17 02/27/20 24 02/28/2024 BASIC METAB OLIC PANEL (8) BUN/creatini ne ratio 12 9-23 Not Available [facility] ([facility]) [address] [facility] [place], [address], 02/28/2024 12:06:17 02/27/20 24 02/28/2024 BASIC METAB OLIC PANEL (8) sodium 141 mmol/ L 134-14 4 Not Available [facility] ([facility]) [address] [facility] [place], [address], 02/28/2024 12:06:17 02/27/20 24 02/28/2024 BASIC METAB OLIC PANEL (8) potassium 4.6 mmol/ L 3.5-5. 2 Not Available [facility] ([facility]) [address] [facility], [address], 02/28/2024 12:06:17 02/27/20 24 02/28/2024 BASIC METAB OLIC PANEL (8) chloride 98 mmol/ L 96-106 Not Available [facility] ([facility]) [address] [facility], [address], 02/28/2024 12:06:17 02/27/20 24 02/28/2024 BASIC METAB OLIC PANEL (8) carbon dioxide, total 31 mmol/ L 20-29 above high normal Not Available [facility] ([facility]) [address] [facility] [place], [address], 02/28/2024 12:06:17 02/27/20 24 02/28/2024 BASIC METAB OLIC PANEL (8) calcium 9.8 mg/dL 8.7-10 .2 Not Available [facility] ([facility]) [address] [facility] [place], [address], 02/28/2024 12:06:17 02/27/20 24 02/28/2024 LIPID PANEL cholesterol, total 178 mg/dL 100-19 9 Not Available [facility] ([facility]) [address] [facility] [place], [address], 02/28/2024 12:06:18 02/27/20 24 02/28/2024 LIPID PANEL triglyceride s 116 mg/dL 0-149 Not Available [facility] ([facility]) [address] [facility] [place], [address], 02/28/2024 12:06:18 02/27/20 24 02/28/2024 LIPID PANEL HDL cholesterol 96 mg/dL >39 Not Available [facility] ([facility]) [address] [place], [address], 02/28/2024 12:06:18 02/27/20 24 02/28/2024 LIPID PANEL VLDL cholesterol luke 20 mg/dL 5-40 Not Available [facility] ([facility]) [address] [place], [address], 02/28/2024 12:06:18 02/27/20 24 02/28/2024 LIPID PANEL LDL chol calc (nih) 62 mg/dL 0-99 Not Available [facility] ([facility]) [address] [place], [address], 02/28/2024 12:06:18 02/27/20 24 02/28/2024 LIPID PANEL comment: CLASS A REGIONAL DRIVERS Not Available [facility] ([facility]) [address] [place], [address], 02/28/2024 12:06:18 02/27/20 24 02/28/2024 LDL PETE STERO L (DIRE CT) LDL chol. (direct) 65 mg/dL 0-99 Not Available [facility] ([facility]) [address] [place], [address], 02/28/2024 12:06:19 02/27/20 24 02/28/2024 ALBUM IN, RANDO M URINE albumin, urine 13.2 ug/mL not estab. Not Available [facility] ([facility]) [address] [place], [address], 02/28/2024 12:06:20 02/27/20 24 02/28/2024 TSH RFX ON ABNOR MAL TO FREE T4 TSH 1.110 uIU/m L 0.450- 4.500 Not Available [facility] ([facility]) [address] [place], [address], 02/28/2024 12:06:20 02/27/20 24 02/27/2024 hemog lobin A1Clj A1C 8.2 % 4-6 high Not Available In-Office Order Internal Use Only DO Not Attach Compendium DO Not Attach Compendium, Do Not Delete/merge, [id number] 02/27/2024 14:30:40 Result Notes None recorded. Problems Name Problem SNOMED Code Status Onset Date Resolution Date Notes Provider Name and Address Organization Details Recorded Time Abdomina l pain 64906226 Completed 201104/14/2014 IMPRESSI ON: PT WITH INTERMIT [...] BY ANTHONY GALVEZ ON/ADDEN DUM Not Available [facility] 4 14:17:44 Acute sinusiti s [id number] Completed 200804/14/2014 RECORDED 01/13/20 09 10:58AM BY SAMUEL CELIS MA, ANTHONY ON/ADDEN DUM Not Available [facility] 4 14:17:44 Allergic rhinitis 95698310 Active Marlin Amador MD [address] [address], [place], [address] , [facility] 5 17:55:35 Screenin g for malignan t neoplasm of breast Completed 201304/14/2014 RECORDED 12/24/19 14 8:19AM BY ANTHONY GALVEZ ON/ADDEN DUM Not Available [facility] 4 14:17:45 Cough [id number] Completed 200704/14/2014 DATE: 08/06/20 08; IMPRESSI ON: W/ WHEEZING .; RECORDED 05/01/20 12 9:48AM BY ANTHONY GALVEZ ON/ADDEN DUM Xi Abarca MA [facility], [facility] 7 09:53:54 Tobacco dependen ce syndrome 60228465 Completed 201304/14/2014 RECORDED 12/24/19 14 8:19AM BY SIXTO GALVEZATI ON/ADDEN DUM Not Available [facility] 4 14:17:45 Type 2 diabetes mellitus without complica tion 930020285 Completed 201204/14/2014 IMPRESSI ON: NO CHANGES IN MGMT; CHECK LABS AND ADJUST IF NEEDED.; RECORDED 07/15/20 13 2:53PM BY AINSLEY MONSIVAIS MA, ANTHONY ON/ADDEN DUM Deja Murphy PA-C [address] [facility] [address], [place], [address] , [facility] 7 13:54:58 Type 2 diabetes mellitus without complica tion 272969578 Completed 07/06/2017 Deja Murphy PA-C [address] [facility] [address], [place], [address] , [facility] 7 13:54:58 Diarrhea 26548978 Completed 201104/14/2014 IMPRESSI ON: THIS SEEMS LIKE IBS GIVEN HER SX AND THE AMOUNT OF TIME SHE HAS HAD SX. DOUBT INFECTIO US BECAUSE OF THE DURATION . WILL CHECK STOOL STUDIES NEXT VISIT IF STILL SYMPTOMA TIC.; RECORDED 07/08/20 12 11:19AM BY ANTHONY GALVEZ ON/ADDEN DUM Not Available [facility] 4 14:17:45 Dizzines s and giddines s 899503648 Completed 201104/14/2014 RECORDED 05/01/20 12 9:48AM BY SIXTO GALVEZATI ON/ADDEN DUM Not Available [facility] 4 14:17:45 Dysmenor seng 087483220 Completed 201104/14/2014 RECORDED 05/01/20 12 9:48AM BY SIXTO GALVEZATI ON/ADDEN DUM Not Available [facility] 4 14:17:45 Respirat ory finding 011115404 Completed 201104/14/2014 RECORDED 05/01/20 12 9:48AM BY SIXTO GALVEZATI ON/ADDEN DUM Not Available [facility] 4 14:17:45 Blood chemistr y outside referenc e range 469824819 Completed 201104/14/2014 RECORDED 05/01/20 12 9:48AM BY SIXTO GALVEZATI ON/ADDEN DUM Not Available [facility] 4 14:17:45 Malaise and fatigue 394805558 Completed 05/24/2017 Xi rodriguez, [facility] 7 09:53:48 Influenz a vaccine needed [id number] 06 Completed 201004/14/2014 DATE: 06/09/20 11; RECORDED 05/01/20 12 9:48AM BY ANTHONY GALVEZ ON/ADDEN DUM Not Available [facility] 4 14:17:45 Disorder of hair AND/OR hair follicle Completed 201104/14/2014 RECORDED 05/01/20 12 9:48AM BY SIXTO GALVEZATI ON/ADDEN DUM Not Available [facility] 4 14:17:45 Adult health examinat ion Completed 201304/14/2014 RECORDED 12/24/19 14 8:19AM BY SIXTO GALVEZATI ON/ADDEN DUM Not Available [facility] 4 14:17:45 Well child 376943244 Completed 201104/14/2014 RECORDED 05/01/20 12 9:48AM BY SIXOT GALVEZATI ON/ADDEN DUM Not Available [facility] 4 14:17:45 Pure hypercho lesterol emia 668134315 Completed 10/31/2016 Marlin Amador MD [address], [place], [address] , [facility] 7 14:03:55 Irritabl e bowel syndrome 50286950 Completed 201104/14/2014 RECORDED 07/08/20 12 11:19AM BY SIXTO GALVEZATI ON/ADDEN DUM Not Available [facility] 4 14:17:46 Primary malignan t neoplasm of uterine cervix 612527336 Completed 201204/14/2014 AGE 17, LASER REMOVAL; RECORDED 10/08/19 13 11:20AM BY SIXTO GALVEZATI ON/ADDEN DUM Not Available [facility] 4 14:17:46 Administ ration of bacteria l and viral vaccine Completed 200704/14/2014 RECORDED 08/06/20 08 2:05PM BY GM SEAMAN, OFFICE VISIT Not Available [facility] 4 14:17:46 Onychomy cosis due to dermatop hyte 460062169 Completed 201104/14/2014 RECORDED 05/01/20 12 9:48AM BY SIXTO GALVEZATI ON/ADDEN DUM Not Available [facility] 4 14:17:46 Knee pain Completed 201104/14/2014 RECORDED 05/01/20 12 9:48AM BY SIXTO GALVEZATI ON/ADDEN DUM Not Available [facility] 4 14:17:46 Immuniza tion refused Completed 201304/14/2014 RECORDED 12/24/19 14 8:19AM BY SIXTO GALVEZATI ON/ADDEN DUM Not Available [facility] 4 14:17:46 Posterio r rhinorrh ea 70333672 Completed 201104/14/2014 RECORDED 05/01/20 12 9:48AM BY SIXTO GALVEZATI ON/ADDEN DUM Not Available [facility] 4 14:17:46 Eruption [id number] Completed 200804/14/2014 RECORDED 01/13/20 09 10:58AM BY SAMUEL CELIS MA, ANTHONY ON/ADDEN DUM Not Available [facility] 4 14:17:46 Procedur e refused Completed 201104/14/2014 RECORDED 05/01/20 12 9:48AM BY SIXTO GALVEZATI ON/ADDEN DUM Not Available [facility] 4 14:17:46 Speciali zed medical examinat ion Completed 201104/14/2014 RECORDED 05/01/20 12 9:48AM BY KATY CATALAN I ANNOTATI ON/ADDEN DUM Not Available [facility] 4 14:17:46 Schizoph yanique 73512073 Active Stable on meds. Followed by psych Marlin Amador MD [address], [place], [address] , [facility] 6 13:25:02 Screenin g for malignan t neoplasm of cervix Completed 201104/14/2014 RECORDED 05/01/20 12 9:48AM BY SIXTO GALVEZATI ON/ADDEN DUM Not Available [facility] 4 14:17:46 Chronic sinusiti s 06225638 Completed 201104/14/2014 RECORDED 05/01/20 12 9:48AM BY SIXTO GALVEZATI ON/ADDEN DUM Not Available [facility] 4 14:17:46 Tobacco dependen ce syndrome 25217273 Active Marlin Amador MD [address], [place], [address] , [facility] 6 15:15:56 Trichomo nal vulvovag initis 13081976 Completed 201004/14/2014 DATE: 03/02/20 11; RECORDED 05/01/20 12 9:48AM BY SIXTO GALVEZATI ON/ADDEN DUM Not Available [facility] 4 14:17:46 Acute upper respirat ory infectio n 54535895 Completed 201204/14/2014 RECORDED 10/08/19 13 11:24AM BY SIXTO GALVEZATI ON/ADDEN DUM Not Available [facility] 4 14:17:47 Urinary incontin ence 469134449 Completed 200704/14/2014 RESOLVED DATE: 04/23/20 08; RECORDED 04/23/20 08 10:15AM BY MARLIN SILVA MD, ANNOTATI ON/ADDEN DUM Not Available [facility] 4 14:17:47 Wheezing 22677026 Completed 201204/14/2014 IMPRESSI ON: NO H/O ASTHMA. SHE WILL CALL IF SHE NEEDS TO USE THE PROAIR DAILY.; RECORDED 10/08/19 13 11:24AM BY SIXTO GALVEZATI ON/ADDEN DUM Not Available [facility] 4 14:17:47 Abdomina l pain [id number] Completed 201105/04/2014 IMPRESSI ON: PT WITH INTERMIT [...] BY SIXTO GALVEZATI ON/ADDEN DUM Not Available [facility] 4 06:38:55 Acute sinusiti s 28396762 Completed 200805/04/2014 RECORDED 01/13/20 09 10:58AM BY SAMUEL CELIS MA, SIXTOATI ON/ADDEN DUM Not Available [facility] 4 06:38:55 Screenin g for malignan t neoplasm of breast Completed 201305/04/2014 RECORDED 12/24/19 14 8:19AM BY SIXTO GALVEZATI ON/ADDEN DUM Not Available [facility] 4 06:38:55 Cough 00961165 Completed 200705/04/2014 DATE: 08/06/20 08; IMPRESSI ON: W/ WHEEZING .; RECORDED 05/01/20 12 9:48AM BY KATY CATALAN I ANNOTATI ON/ADDEN DUM Xi rodriguez, [facility] 7 09:53:54 Tobacco dependen ce syndrome 72406343 Completed 201305/04/2014 RECORDED 12/24/19 14 8:19AM BY KATY CATALAN I ANNOTATI ON/ADDEN DUM Not Available [facility] 4 06:38:55 Type 2 diabetes mellitus without complica tion 967920746 Completed 201205/04/2014 IMPRESSI ON: NO CHANGES IN MGMT; CHECK LABS AND ADJUST IF NEEDED.; RECORDED 07/15/20 13 2:53PM BY AINSLEY MONSIVAIS MA, ANTHONY ON/ADDEN DUM Deja Murphy PA-C [address], [place], [address] , [facility] 7 13:54:58 Diarrhea 18167794 Completed 201105/04/2014 IMPRESSI ON: THIS SEEMS LIKE IBS GIVEN HER SX AND THE AMOUNT OF TIME SHE HAS HAD SX. DOUBT INFECTIO US BECAUSE OF THE DURATION . WILL CHECK STOOL STUDIES NEXT VISIT IF STILL SYMPTOMA TIC.; RECORDED 07/08/20 12 11:19AM BY ANTHONY GALVEZ ON/ADDEN DUM Not Available [facility] 4 06:38:55 Dizzines s and giddines s 227031839 Completed 201105/04/2014 RECORDED 05/01/20 12 9:48AM BY ANTHONY GALVEZ ON/ADDEN DUM Not Available [facility] 4 06:38:55 Dysmenor seng 202581612 Completed 201105/04/2014 RECORDED 05/01/20 12 9:48AM BY ANTHONY GALVEZ ON/ADDEN DUM Not Available [facility] 4 06:38:55 Respirat ory finding 998260930 Completed 201105/04/2014 RECORDED 05/01/20 12 9:48AM BY ANTHONY GALVEZ ON/ADDEN DUM Not Available [facility] 4 06:38:55 Blood chemistr y outside referenc e range 025689133 Completed 201105/04/2014 RECORDED 05/01/20 12 9:48AM BY ANTHONY GALVEZ ON/ADDEN DUM Not Available [facility] 4 06:38:55 Influenz a vaccine needed [id number] 06 Completed 201005/04/2014 DATE: 06/09/20 11; RECORDED 05/01/20 12 9:48AM BY SIXTO GALVEZATI ON/ADDEN DUM Not Available [facility] 4 06:38:55 Disorder of hair AND/OR hair follicle Completed 201105/04/2014 RECORDED 05/01/20 12 9:48AM BY SIXTO GALVEZATI ON/ADDEN DUM Not Available [facility] 4 06:38:55 Adult health examinat ion Completed 201305/04/2014 RECORDED 12/24/19 14 8:19AM BY SIXTO GALVEZATI ON/ADDEN DUM Not Available [facility] 4 06:38:55 Well child 597060276 Completed 201105/04/2014 RECORDED 05/01/20 12 9:48AM BY SIXTO GALVEZATI ON/ADDEN DUM Not Available [facility] 4 06:38:55 Irritabl e bowel syndrome 09298846 Completed 201105/04/2014 RECORDED 07/08/20 12 11:19AM BY SIXTO GALVEZATI ON/ADDEN DUM Not Available [facility] 4 06:38:56 Laborato ry procedur e performe d 702233403 Completed 201305/26/2014 RECORDED 04/02/20 14 2:51PM BY NATA RIVERS, LAB REQ Marlin Amador MD [address], [place], [address] , [facility] [place] 4 12:00:02 Primary malignan t neoplasm of uterine cervix 191699632 Completed 201205/04/2014 AGE 17, LASER REMOVAL; RECORDED 10/08/19 13 11:20AM BY SIXTO GALVEZATI ON/ADDEN DUM Not Available [facility] 4 06:38:56 Administ ration of bacteria l and viral vaccine Completed 200705/04/2014 RECORDED 08/06/20 08 2:05PM BY GM SEAMAN, OFFICE VISIT Not Available [facility] 4 06:38:56 Onychomy cosis due to dermatop hyte 658600289 Completed 201105/04/2014 RECORDED 05/01/20 12 9:48AM BY SIXTO GALVEZATI ON/ADDEN DUM Not Available [facility] 4 06:38:56 Knee pain Completed 201105/04/2014 RECORDED 05/01/20 12 9:48AM BY SIXTO GALVEZATI ON/ADDEN DUM Not Available [facility] 4 06:38:56 Immuniza tion refused Completed 201305/04/2014 RECORDED 12/24/19 14 8:19AM BY SIXTO GALVEZATI ON/ADDEN DUM Not Available [facility] 4 06:38:56 Posterio r rhinorrh ea 46192323 Completed 201105/04/2014 RECORDED 05/01/20 12 9:48AM BY SIXTO GALVEZATI ON/ADDEN DUM Not Available [facility] 4 06:38:56 Eruption [id number] Completed 200805/04/2014 RECORDED 01/13/20 09 10:58AM BY SAMUEL CELIS MA, SIXTOATI ON/ADDEN DUM Not Available [facility] 4 06:38:56 Procedur e refused Completed 201105/04/2014 RECORDED 05/01/20 12 9:48AM BY SIXTO GALVEZATI ON/ADDEN DUM Not Available [facility] 4 06:38:56 Speciali zed medical examinat ion Completed 201105/04/2014 RECORDED 05/01/20 12 9:48AM BY SIXTO GALVEZATI ON/ADDEN DUM Not Available [facility] 4 06:38:56 Screenin g for malignan t neoplasm of cervix Completed 201105/04/2014 RECORDED 05/01/20 12 9:48AM BY KATY CATALAN I ANNOTATI ON/ADDEN DUM Not Available [facility] 4 06:38:56 Chronic sinusiti s 00452762 Completed 201105/04/2014 RECORDED 05/01/20 12 9:48AM BY SIXTO GALVEZATI ON/ADDEN DUM Not Available [facility] 4 06:38:56 Trichomo nal vulvovag initis 32480817 Completed 201005/04/2014 DATE: 03/02/20 11; RECORDED 05/01/20 12 9:48AM BY SIXTO GALVEZATI ON/ADDEN DUM Not Available [facility] 4 06:38:56 Acute upper respirat ory infectio n 61271888 Completed 201205/04/2014 RECORDED 10/08/19 13 11:24AM BY SIXTO GALVEZATI ON/ADDEN DUM Not Available [facility] 4 06:38:56 Urinary incontin ence 566111964 Completed 200705/04/2014 RESOLVED DATE: 04/23/20 08; RECORDED 04/23/20 08 10:15AM BY MARLIN SILVA MD, ANNOTATI ON/ADDEN DUM Not Available [facility] 4 06:38:56 Wheezing 91679156 Completed 201205/04/2014 IMPRESSI ON: NO H/O ASTHMA. SHE WILL CALL IF SHE NEEDS TO USE THE PROAIR DAILY.; RECORDED 10/08/19 13 11:24AM BY SIXTO GALVEZATI ON/ADDEN DUM Not Available [facility] 4 06:38:56 Type 2 diabetes mellitus 12392423 Completed 01/28/2015 Deja Murphy PA-C [address], [place], [address] , [facility] 7 13:55:02 Cough 22305862 Completed 05/24/2017 Xi rodriguez, [facility] 7 09:53:54 Nasal congesti on 80080144 Completed 05/24/2017 Xi rodriguez, [facility] 7 09:53:58 Type 2 diabetes mellitus 53702606 Completed 07/06/2017 Deja Murphy PA-C [address], [place], [address] , [facility] 7 13:55:02 Gynecolo gic examinat ion Active Marlin Amador MD [address] [facility] [address], [place], [address] , [facility] 5 06:59:59 Chest pain 75929359 Completed 05/24/2017 Xi rodriguez, [facility] 7 09:53:51 Chronic obstruct meri pulmonar y disease 99654918 Active 2016 Rubén Murphy PA-C [address], [place], [address] , [facility] 7 13:22:11 Uncontro lled type 2 diabetes mellitus 036489729 Active 2016 Deja Murphy PA-C [address], [place], [address] , [facility] 7 13:55:08 Hyperlip idemia 36759196 Active 2020 Marlin Amador MD [address], [place], [address] , [facility] 1 19:28:56 Problem Notes None recorded. Procedures Surgical History Date Name Laterality Status Provider Name and Address Organization Details Recorded Time 3 Diabetic Foot Exam (Monofilament) completed Marlin Amador MD [address] [facility] [address], [place], [address], [facility] 04/24/2023 15:00:38 2 Diabetic Foot Exam (Monofilament) completed Marlin Amador MD [address], [address], [facility] 12/13/2021 14:39:14 1 Diabetic Foot Exam (Monofilament) completed Marlin Amador MD [address], [address], [facility] 02/07/2021 15:13:59 1 Diabetic Foot Exam (Monofilament) completed Marlin Amador MD [address], [address], [facility] 10/15/2020 13:38:53 0 Diabetic Foot Exam (Monofilament) completed Marlin Amador MD [address], [address], [facility] 04/14/2020 17:17:01 9 Diabetic Foot Exam (Monofilament) completed Marlin Amador MD [address], [address], [facility] 03/20/2019 15:31:43 8 Diabetic Foot Exam (Monofilament) completed Marlin Amador MD [address], [address], [facility] 02/28/2018 07:11:43 6 Most Recent Mammogram completed Magda Marcus [facility] 01/07/2016 08:42:52 6 Mammogram Screening completed Magdamariela Marcus [facility] 01/07/2016 08:42:52 5 Date of Last Pap Smear completed Luis Alberto Smith [facility] 03/22/2017 16:18:21 4 Nebulizer tx completed MARIE Pfeiffer [address] [facility] [address], [place], [address], [facility] 07/15/2014 14:31:36 Other completed Samuel boone MA [facility] 07/15/2014 14:13:40 Imaging Results None recorded. Procedure Notes None recorded. Medical Equipment None Reported. Allergies Allergen ID Allergen Name Allergen Category Reaction Reaction Severity Criticality Documentation Date Start Date Code Code System Note Provider Name and Address Organization Details Recorded Time 13133 Actos medicatio n edema moderate Not available 06/29/2021 13943 2 RxNorm Marlin dean MD [address] [facility] [address], [place], [address], [facility] 09:25:21 Medications Name Sig Start Date Stop [...] 03/07 completed RECORDED 03/07/20 11 9:12AM BY MARLIN SILVA MD, ANTHONY ON/LYRIC DUM; Not Available [...] 02/03/20 10 2:24PM BY LUIS ALBERTO SMITH [place] ON/LYRIC DUM; Not Available Not Available Not [...] 07/16 completed RECORDED 07/19/20 11 9:51AM BY MARLIN SILVA MD, MEDICATI ON AUTO-ASHELY CTIVATIO N; [...] 08/05 completed RECORDED 08/13/20 09 9:54AM BY MARLIN SILVA MD, MEDICATI ON AUTO-ASHELY CTIVATIO N; [...] completed Seems like it was replaced by [facility] Not Available Not Available Not [...] 08/05 completed RECORDED 08/05/20 12 10:47AM BY MARLIN SILVA MD, ANTHONY ON/ADDEN DUM; Not Available Not Available Not Available guaifenes in TID PRN 09/23 completed RECORDED 09/25/19 08 3:44PM BY VANESSA ROME MD, MEDICATI ON AUTO-ASHELY CTIVATIO N; Not Available Not Available Not Available Prolixin DAILY PRN 07/17 completed RECORDED 07/17/20 13 4:58PM BY MARLIN SILVA MD, ANTHONY ON/ADDEN DUM; Not Available [...] Not Available Not Available Not Available FreeStyle [place] kit DAILY 07/03 completed RECORDED 07/15/20 13 10:18AM BY KATY CATALAN I, MEDICATI ON AUTO-ASHELY CTIVATIO N;DX=DM2 Not Available [...] completed Not Available Not Available Not Available Henrietta n DM Max 10 mg-200 mg/5 mL [...] completed Not Available Not Available Not Available dapaglifl ozin propanedi ol 10 mg tablet TAKE 1 TABLET BY MOUTH EVERY DAY 2024 active Not Available Not Available Not Avai lable Jardiance 10 mg tablet 1 poqd 10/23 completed Not Available Not Available Not Available Jardiance 25 mg tablet TAKE 1 TABLET BY MOUTH ONCE DAILY 10/19 completed Not Available Not Available Not Available Jayjayitussi n Cough-Sharonda st Congestio n DM 10 [...] Updated DateTime 2 165.74 cm 33.7 kg/m2 54098.8 4 g 98 /min 93 % 93 % 98.24 [degF] 114 mm[Hg] 74 mm[Hg] Masha Howard MA [facility] [place] 2 13:30:52 Date Recorded Body height Body mass index (BMI) Body weight Heart rate Oxygen saturation Oxygen saturation in Arterial blood by Pulse oximetry Body temperature Systolic blood pressure Diastolic blood pressure Provider Name and Address Organization Details Last Updated DateTime 3 165.74 cm 32.8 kg/m2 97492.3 9 g 103 /min 95 % 95 % 97.6 [degF] 121 mm[Hg] 72 mm[Hg] Masha Howard MA [facility] [place] 3 14:36:54 Date Recorded Body height Body mass index (BMI) Body weight Heart rate Oxygen saturation Oxygen saturation in Arterial blood by Pulse oximetry Body temperature Systolic blood pressure Diastolic blood pressure Provider Name and Address Organization Details Last Updated DateTime 3 165.74 cm 33 kg/m2 86659.4 7 g 91 /min 96 % 96 % 98.2 [degF] 140 mm[Hg] 78 mm[Hg] Janny Zapata MA [facility] [place] 3 13:32:43 Date Recorded Body height Body mass index (BMI) Body weight Heart rate Oxygen saturation Oxygen saturation in Arterial blood by Pulse oximetry Body temperature Systolic blood pressure Diastolic blood pressure Provider Name and Address Organization Details Last Updated DateTime 4 165.74 cm 33.4 kg/m2 98010.6 6 g 84 /min 96 % 96 % 98.1 [degF] 121 mm[Hg] 74 mm[Hg] Evangelina [facility]jero [facility] 4 11:43:59 Date Recorded Body height Body mass index (BMI) Body weight Heart rate Oxygen saturation Oxygen saturation in Arterial blood by Pulse oximetry Body temperature Systolic blood pressure Diastolic blood pressure Provider Name and Address Organization Details Last Updated DateTime 4 165.74 cm 34.5 kg/m2 27161.8 1 g 105 /min 95 % 95 % 98 [degF] 143 mm[Hg] 83 mm[Hg] Janny Zapata MA [facility] 4 14:37:07 Social History Question Answer Notes LastModified by Organizat ion Details LastModified Time Tobacco Smoking Status Current Every Day Smoker Not Available [facility] 07/27/2020 03:36:37 Do You Have An Advance Directive? Yes [id number] Information not available 07/27/2020 What Is Your Level Of Alcohol Consumption? Occasional [id number] Information not available 07/27/2020 Is Blood Transfusion Acceptable In An Emergency? Yes [id number] Information not available 07/27/2020 What Is Your Level Of Caffeine Consumption? Moderate [id number] Information not available 07/27/2020 How Much Tobacco Do You Chew? None [id number] Information not available 07/27/2020 In The 14 Days Before Symptom Onset, Have You Had Close Contact With A Laboratory-confir med COVID-19 While That Case Was Ill? No [id number] Information not available 07/27/2020 In The 14 Days Before Symptom Onset, Have You Had Close Contact With A Person Who Is Under Investigation For COVID-19 While That Person Was Ill? No [id number] Information not available 07/27/2020 Have You Been To An Area Known To Be High Risk For COVID-19? No [id number] Information not available 07/27/2020 Are You Currently Employed? No [id number] Information not available 07/27/2020 What Type Of Diet Are You Following? DIABETIC [id number] Information not available 07/27/2020 Which Illicit Or Recreational Drugs Have You Used? No [id number] Information not available 07/27/2020 Do You Or Have You Ever Used E-cigarettes Or Vape? Never Used Electronic Cigarettes [id number] Information not available 07/27/2020 Education 8 Information n ot available 05/26/2014 Are There Any Guns Present In Your Home? No [id number] Information not available 07/27/2020 Hard Of Hearing Or Deaf In One Or Both Ears? No Information not available 05/26/2014 Legally Blind In One Or Both Eyes? No Information no t available 05/26/2014 Live Alone Or With Others? Alone Information not available 06/23/2019 How Often Do You Need To Have Someone Help You When You Read Instructions, Pamphlets, Or Other Written Material From Your Doctor Or Pharmacy? Never [email or web address] Information not available 08/10/2015 Have You Served In The ? No [email or web address] Information not available 10/31/2016 Have You Or Anyone In Your Household Had Any Of The Following Symptoms In The Last 14 Days: Sore Throat, Cough, Chills, Body Aches For Unknown Reasons, Shortness Of Breath For Unknown Reasons, Loss Of Smell, Loss Of Taste, Fever At Or Greater Than 100 Degrees Fahrenheit? No [email or web address] Information not available 04/13/2020 Are You Or Anyone In Your Household A Health Care Provider Or Emergency Responder? No [email or web address] Information not available 04/13/2020 To The Best Of Your Knowledge Have You Been In Close Proximity To Any Individual Who Tested Positive For COVID-19? No [email or web address] Information not available 04/13/2020 Have You Recently Traveled To A COVID-19 High Risk Area Or Gathering In The Last 10 Days? No [email or web address] Information not available 10/14/2020 What Was The Date Of Your Most Recent Tobacco Screening? 08/07/2023 [email or web address] Information not available 08/07/2023 How Many Children Do You Have? 2 [id number] Information not available 07/27/2020 What Is Your Current Pack Years? [email or web address] ars [id number] Information not available 07/27/2020 Do You Use Protection During Sex? No [id number] Information not available 07/27/2020 Seat Belts Used Routinely Yes Information not available 08/10/2015 Are You Sexually Active? Yes [id number] Information not available 07/27/2020 Smoke Alarm In Home Yes Information not available 08/10/2015 At What Age Did You Start Smoking Tobacco? 17 [id number] Information not available 07/27/2020 Are You Passively Exposed To Smoke? Yes [email or web address] Information no t available 07/15/2020 Do You Or Have You Ever Used Smokeless Tobacco? Never Used Smokeless Tobacco [id number] Information not available 07/27/2020 How Much Tobacco Do You Smoke? 1.5 PPD [id number] Information not available 07/27/2020 General Stress Level High Information not available 05/26/2014 Do You Use Any Illicit Or Recreational Drugs? No Information not available 12/13/2021 Do You Use Sunscreen Routinely? Yes [id number] Information not available 07/27/2020 Do You Or Have You Ever Used Any Other Forms Of Tobacco Or Nicotine? No Information not available 12/13/2021 Sex: Unknown Functional Status Question Answer Note LastModified by Organizat ion Details LastModified Time Are you able to walk? [email or web address] Information not available 12/13/2021 Are you able to care for yourself? No [id number] Information not available 07/27/2020 What is your exercise level? Occasional [id number] Information not available 07/27/2020 Mental Status None recorded. Family History Relationship Description Onset Age of this Age Resolved Age Notes LastModified by Organization Details LastModified Time Mother History of malignant neoplasm [email or web address] Not available 08/10 14:34:22 Maternal Grandfather Hypercholest [email or web address] Not available 08/10 14:34:22 Father Alcohol abuse [...] mcg/0.3 mL dose 021 completed GM Vazquez [facility] 06/28/2021 15:21:04 COVID-19, mRNA, LNP-S, PF, 30 mcg/0.3 mL dose 021 completed GM Vazquez [facility] 06/28/2021 15:21:23 Td (adult), 2 Lf tetanus toxoid, preservative free, adsorbed 019 completed Not Available [facility] 10/11/2019 02:21:30 Influenza, split virus, quadrivalent, PF 020 cancelled patient objection GM Richards, [facility] 07/15/2020 14:31:12 Influenza, split virus, trivalent, preservative 008 completed Not Available [facility] 04/07/2014 14:07:42 Tdap 008 completed Not Available [facility] 04/07/2014 14:07:42 Influenza, split virus, trivalent, preservative 010 completed Not Available [facility] 04/07/2014 14:07:42 Influenza, split virus, trivalent, preservative 011 completed Not Available [facility] 04/07/2014 14:07:43 Past Encounters Encounter ID Performer Location Encounter Start Date Encounter Closed Date Diagnosis/Indication Diagnosis SNOMED-CT Code Diagnosis ICD10 Code Diagnosis Note [id number] autoEComm erce [address] [facility] [place] [address] 11/19/2006 00:00:00 [id number] autoEComm erce [address] [facility] [place] [address] 12/10/2006 00:00:00 [id number] autoEComm erce [address] [facility] [place] [address] 02/22/2007 00:00:00 [id number] autoEComm erce [address] [facility] [place] [address] 08/24/2006 00:00:00 [id number] autoEComm erce [address] [facility] [place] [address] 06/22/2006 00:00:00 [id number] autoEComm erce [address] [facility] [place] [address] 06/04/2006 00:00:00 [id number] autoEComm erce [address] [place] [address] 03/25/2007 00:00:00 [id number] autoEComm erce [address] [facility] [address] [place] [address] 06/05/2007 00:00:00 [id number] autoEComm erce [address] [facility] [place] [address] 10/25/2007 00:00:00 [id number] autoEComm erce [address] [facility] [address] [place] [address] 01/22/2008 00:00:00 [id number] autoEComm erce [address] [facility] [place] [address] 04/23/2008 00:00:00 [id number] autoEComm erce [address] [facility] [place] [address] 08/06/2008 00:00:00 [id number] autoEComm erce [address] [facility] [place] [address] 08/08/2008 00:00:00 [id number] autoEComm erce [address] [facility] [place] [address] 10/09/2008 00:00:00 [id number] autoEComm erce [address] [facility] [place] [address] 12/11/2008 00:00:00 [id number] autoEComm erce [address] [facility] [place] [address] 01/12/2009 00:00:00 [id number] autoEComm erce [address] [facility] [place] [address] 04/26/2009 00:00:00 [id number] autoEComm erce [address] [facility] [place] [address] 07/29/2009 00:00:00 [id number] autoEComm erce [address] [facility] [place] [address] 09/07/2009 00:00:00 [id number] autoEComm erce [address] [facility] [place] [address] 02/09/2010 00:00:00 [id number] autoEComm erce [address] [place] [address] 03/11/2010 00:00:00 [id number] autoEComm erce [address] [facility] [address] [place] [address] 05/31/2010 00:00:00 [id number] autoEComm erce [address] [facility] [place] [address] 06/21/2010 00:00:00 [id number] autoEComm erce [address] [facility] [address] [place] [address] 08/24/2010 00:00:00 [id number] autoEComm erce [address] [facility] [place] [address] 09/12/2010 00:00:00 [id number] autoEComm erce [address] [facility] [place] [address] 11/24/2010 00:00:00 [id number] autoEComm erce [address] [facility] [place] [address] 01/20/2011 00:00:00 [id number] autoEComm erce [address] [facility] [place] [address] 03/02/2011 00:00:00 [id number] autoEComm erce [address] [facility] [place] [address] 06/09/2011 00:00:00 [id number] autoEComm erce [address] [facility] [place] [address] 10/03/2011 00:00:00 [id number] autoEComm erce [address] [facility] [place] [address] 02/05/2012 00:00:00 [id number] autoEComm erce [address] [facility] [place] [address] 03/05/2012 00:00:00 [id number] autoEComm erce [address] [facility] [address] [place] [address] 05/01/2012 00:00:00 [id number] autoEComm erce [address] [place] [address] 07/08/2012 00:00:00 [id number] autoEComm erce [address] [facility] [address] [place] [address] 10/08/2012 00:00:00 [id number] autoEComm erce [address] [facility] [address] [place] [address] 01/09/2013 00:00:00 [id number] [employer] [facility] [address] [facility] [place] [address] 07/15/2013 00:00:00 [id number] [employer] [address] [facility] [place] [address] 01/05/2014 00:00:00 [id number] [employer]ce [address] [facility] [place] [address] 11/09/2009 00:00:00 [id number] [employer]ce [address] [facility] [place] [address] 04/09/2013 00:00:00 [id number] [employer]ce [address] [facility] [place] [address] 11/28/2011 00:00:00 [id number] [employer] [address] [facility] [place] [address] 09/15/2011 00:00:00 [id number] [employer] [address] [facility] [place] [address] 07/11/2011 00:00:00 [id number] Main Office [address] [place] [address] 05/26/2014 11:43:44 05/26/2014 12:22:40 Type 2 diabetes mellitus 59244560 Pure hypercholesterolemia 327670590 Schizophrenia 20833627 Tobacco de pendence syndrome 86745293 [id number] Katy Hollis Main Office [address] [facility] [address] [place] [address] 07/15/2014 13:46:49 07/15/2014 14:50:06 Allergic rhinitis 54401128 Cough 42291002 Cough, congestion , insp/ exp wheezing, hoarse voice, tachycardi a, sat 93% RA. Will treat with prednisone burst and zpak for possible bacterial infection. Also recommend patient use her inhaler 2 puffs every 4 hours as needed for cough/ wheezing. Stay well hydrated, humidifier as needed, rest, tylenol or ibuprofen as needed for pain/ fever. Nasal congestion 20509675 [id number] Katy Hollis Main Office [address] [address] [place] [address] 01/27/2015 14:32:48 01/27/2015 15:55:21 Adult health examination 886210961 Administra tion of pneumococcal vaccine 58887574 Type 2 irasema betes mellitus without complication 664421551 will increase her metformin from 500 bid to 1000 bid since her A1C is no longer at goal. Screening for malignant neoplasm of breast 661242793 Pure hypercholesterolemia 111364616 will increase her dose from 20 to 40 mg since her LDL is not at goal. Schizophrenia 72080591 o n meds, living in a prison and followed by psych. [id number] Main Office [address] [address] [place] [address] 05/06/2015 14:03:50 05/06/2015 15:26:34 Type 2 diabetes mellitus 59184237 Pure hypercholesterolemia 772190781 will increase her dose from 20 to 40 mg since her LDL is not at goal. Allergic rhinitis 89532303 continue current [facility] [id number] Marlin Amador MD Main Office [address] [address] [place] [address] 08/10/2015 14:23:33 08/10/2015 15:23:14 Type 2 diabetes mellitus 97075147 E11.9 her A1C has been at goal in the past. She is c/w her meds. Gynecologi c examination 31414935 Z01.411 Screening for malignant neoplasm of breast 225972599 Z12.39 she has never had a mammogram because she has been anxious about going but states that she feels she is now ready. Tobacco de pendence syndrome 05147124 F17.290 we spoke about quitting. She stopped smoking in the past during each of her pregnancie s. [id number] Mikki Bertrand Main Office [address] [facility] [address] [place] [address] 11/09/2015 14:31:59 11/09/2015 15:27:25 Type 2 diabetes mellitus 70397443 E11.9 her A1C is at goal in the past. She is c/w her meds. Schizophrenia 06386017 F 20.3 on meds, living in a prison and followed by psych. Tobacco de pendence syndrome 40740346 F17.290 we spoke about quitting. She stopped smoking in the past during each of her pregnancie s. Pure hypercholesterolemia 216453293 E78.0 we increased her dose from 20 to 40 mg since her LDL was not at goal. Recheck fasting lipid level. Chest pain 63150479 R07. 9 she is at high risk for heart disease because of her smoking and diabetes [id number] Marlin Amador MD Main Office [address] [address] [place] [address] 02/16/2016 12:45:58 02/16/2016 13:25:59 Type 2 diabetes mellitus 01916817 E11.9 her A1C is at goal in the past. She is c/w her meds. Schizophrenia 56663547 F 20.3 on meds, living in a prison and followed by psych. [id number] Marlin Amador MD Main Office [address] [address] [place] [address] 06/30/2016 15:03:47 06/30/2016 15:45:43 Injury of finger 11311926 S69.82XA L big finger injury due to fall. XRAys to r/o fracture. Immobiliza tions with splint, ice several times daily and NSAIDs as directed for 7-10 days. referral to hand specialist . [id number] Vanessa benson Main Office [address] [address] [place] [address] 09/22/2016 15:06:27 09/22/2016 16:05:08 Cough 46393486 R05 Acute pharyngitis 571440 003 J02.9 Acute sinusitis 62310088 J01.90 Wheezing 30814573 R06.2 [id number] Marlin Amador MD Main Office [address] [address] [place] [address] 10/31/2016 13:40:19 10/31/2016 14:46:59 Adult health examination 436742528 Z00.00 UTD with immunizati ons. Had a PAP done Jul 2015. Type 2 irasema betes mellitus 80140113 E11.9 her A1C is a little above goal. She is c/w her meds. She will try to make some changes and we will f/u in 3 months w/o making any changes in meds right now. We will make an eye appointmen t for her. Schizophrenia 27251076 F 20.3 on meds, living in a prison and followed by psych. Tobacco de pendence syndrome 16736742 F17.290 we spoke about quitting. She stopped smoking in the past during each of her pregnancie s. Hyperlipidemia 82599206 E78.5 We increased her med at a previous visit and will recheck her fasting lipid level. [id number] Marlin Amador MD Main Office [address] [address] [place] [address] 12/25/2016 11:34:50 12/25/2016 12:20:54 Acute conjunctivitis 11271587 H10.33 Nasal congestion 3525563 0 R09.81 [id number] Marlin Amador MD Main Office [address] [address] [place] [address] 03/06/2017 12:39:50 03/06/2017 13:33:42 Type 2 diabetes mellitus 79435577 E11.9 Her A1C continues to rise as does her weight. We will add januvia to her regimen. Schizophrenia 70304234 F 20.3 on meds, living in a prison and followed by psych. [id number] Marlin Amador MD Main Office [address] [address] [place] [address] 05/10/2017 15:11:49 05/10/2017 16:27:12 Sore throat 919140573 J02.9 Pneumonia 534262363 J18. 9 Wheezing 98384021 R06.2 is running low on proair - has used it past few days - will renew [id number] Marlin Amador MD Main Office [address] [facility] [address] [place] [address] 05/24/2017 09:33:03 05/24/2017 11:17:36 Dyspnea 524805093 R06.00 much improved p pna rx pt [...] gums - it has helped before Pneumonia 595931669 J18. 9 resolved s/p rx Tobacco de pendence syndrome 08219192 F17.200 strongly encouraged tob cessation - she states she will try ankit gums again - this had worked for her in the past Cough 96838834 R05 most likely d/t prolonged tobacco exp. - see below Chronic ob structive pulmonary disease 28943465 J44.9 see above [id number] Marlin Amador MD Main Office [address] [facility] [address] [place] [address] 06/06/2017 14:22:12 06/06/2017 16:18:04 Type 2 diabetes mellitus 18897402 E11.9 Since her A1C was rising we did a script for januvia which was not covered by her insurance. We then did a script for actos which she only filled about 2-3 weeks ago. Her A1C has come down slightly so we will not make any changes at this time. Chronic ob structive pulmonary disease 45628917 J44.9 We discussed quitting smoking to help prevent further progressio n. Since she denies SOB and exam is normal we will not start any meds but will monitor her function. [id number] Ana María crain Main Office [address] [facility] 207 [facility] [place] [address] 07/06/2017 12:59:15 07/06/2017 14:07:16 Uncontrolled type 2 diabetes mellitus 691766855 E11.65 Total time spent teaching and coordinati [...] be set up to see notionist at [facility]. Pt. was advised to start exercise activity [...] m. Body mass index 30+ - obesity 309795046 Z68.34 Obesity 361291786 E66.9 [id number] Marlin Amador MD Main Office [address] [place] [address] 09/05/2017 12:48:05 09/05/2017 13:58:41 Uncontrolled type 2 diabetes mellitus 352811687 E11.65 Excellent improvemen t in A1C which is now less than 7.0 again (down to 6.8). She will continue with current mgmt since it is working. Dysuria 26864197 R30.0 No longer with symptoms so will send culture and will not do abx for now. She was advised to drink more fluids. Schizophrenia 24411951 F 20.3 on meds, living on her own with supervisio n and followed by psych. [id number] Deja Murphy PA-C Main Office [address] [address] [place] [address] 10/23/2017 14:27:22 10/23/2017 15:48:51 Uncontrolled type 2 diabetes mellitus 985708799 E11.65 STable type II Diabetes w/o complicati ons. Continue current meds. Discussed lowering calories even further and increasing exercise activity. Test glucose 1 time per day and bring glucose log to next visit. F/u 3 m. Repeat labs. Upper resp iratory infection 16952698 J06.9 Wheezing 04834153 R06.2 Chronic ob structive pulmonary disease 01776646 J44.9 Body mass index 30+ - obesity 447171187 E66.01 Z68.35 [id number] Marlin Amador MD Main Office [address] [place] [address] 02/27/2018 13:02:09 02/27/2018 14:22:54 Adult health examination 429173180 Z00.00 UTD with immunizati ons. Had a PAP done Jul 2015 and will return for a PAP Genital warts 267121247 A63.0 Will try topical treatment and if persists will Uncontroll ed type 2 diabetes mellitus 986733741 E11.65 A1C continues to be at goal below 7.0 and is currently at 6.3 . She will continue with current mgmt since it is working. [id number] Marlin Amador MD Main Office [address] [place] [address] [place] [address] 06/06/2018 12:57:48 06/06/2018 13:58:46 Uncontrolled type 2 diabetes mellitus 773981668 E11.65 A1C continues to be at goal below 7.0 and is currently at 6.6. She will continue with current mgmt since it is working. Schizophrenia 15352149 F 20.3 on meds, living on her own with supervisio n and followed by psych. [id number] Marlin Amador MD Main Office [address] [place] [address] [place] [address] 08/22/2018 13:25:23 08/22/2018 14:17:54 Acute pharyngitis 143402948 J02.9 Cough 43898161 R05 She will use robitussin prn. [id number] Marlin Amador MD Main Office [address] [place] [address] [address] 03/20/2019 15:00:36 03/20/2019 15:56:26 Uncontrolled type 2 diabetes mellitus 969281723 E11.65 A1C continues to be at goal below 7.0 and is currently at 6.7. She will continue with current mgmt since it is working. Schizophrenia 05971690 F 20.3 on meds, living on her own with supervisio n and followed by psych. Chronic ob structive pulmonary disease 48838568 J44.9 Continues to smoke Requires a tetanus booster 309648141 Z23 [id number] Marlin Amador MD Main Office [address] [facility] 207 [place] [address] 06/23/2019 14:34:34 06/23/2019 15:59:51 Adult health examination 255933035 Z00.00 UTD with immunizati ons. Had a PAP done Jul 2015 and will return for a PAP Type 2 irasema betes mellitus without complication 901177172 E11.9 Body mass index 30+ - obesity 300559334 E66.01 Z68.36 Schizophrenia 26609864 F 20.3 on meds, living on her own with supervis n and followed by psych. [id number] Marlin Amador MD Main Office [address] [address] 04/13/2020 12:37:21 04/13/2020 13:38:09 Uncontrolled type 2 diabetes mellitus 961824949 E11.65 A1C continues to be at goal below 7.0 and is currently at 6.7. She will continue with current mgmt since it is working. Lateral ep icondylitis of right humerus 4598259611 92240 M77.11 Chronic ob structive pulmonary disease 92656838 J44.9 Continues to smoke Schizophrenia 74530043 F 20.3 on meds, living on her own with supervis n and followed by psych. Tobacco de pendence syndrome 20793583 F17.290 we spoke about quitting. She stopped smoking in the past during each of her pregnancie s. [id number] Marlin Amador MD Main Office [address] [facility] 207 [place] [address] 07/15/2020 14:10:04 07/15/2020 15:21:15 Adult health examination 270828634 Z00.00 UTD with immunizati ons but refuses a flu vaccine. Had a PAP done Jul 2015 and will return for a PAP Needs infl uenza immunization 359871382 Z23 Uncontroll ed type 2 diabetes mellitus 578537771 E11.65 Her diabetes is no longer uncontroll ed; her A1C today is 7.0. She was encouraged to stay with the same mgmt. Schizophrenia 79861063 F 20.3 on meds, living on her own with supervisio n and followed by psych. Tobacco de pendence syndrome 99367815 F17.290 we spoke about quitting. She stopped smoking in the past during each of her pregnancie s. Body mass index 30+ - obesity 172654839 E66.01 [id number] Marlin Amador MD Main Office [address] [address] 10/14/2020 13:41:53 10/14/2020 14:42:06 Uncontrolled type 2 diabetes mellitus 861004356 E11.65 Her A1C increased form 7.0 to 7.7. We will increase her actos from 15 to 30 mg and see her back in 3 months. Hyperlipidemia 45160180 E78.5 We increased her med at a previous visit and LDL is now at goal. Schizophrenia 17007431 F 20.3 on meds, [facility]. Chronic ob structive pulmonary disease 99519943 J44.9 Continues to smoke [id number] Marlin Amador MD Main Office [address] [address] 02/07/2021 14:23:01 02/07/2021 15:22:47 Uncontrolled type 2 diabetes mellitus 255441600 E11.65 Her A1C continues to increase despite being c/w her meds. Will increase her actos from 30 to 45 mg and she will continue metformin trajenta. Chronic ob structive pulmonary disease 17702706 J44.9 Continues to smoke Hyperlipidemia 46949165 E78.5 LDL at goal. Will check fasting lipid level. Schizophrenia 71438589 F 20.3 on meds, [facility] and [facility]. [id number] Marlin Amador MD [facility] [address] [address] 03/17/2021 13:57:16 03/18/2021 14:44:54 Uncontrolled type 2 diabetes mellitus 977051866 E11.65 She has been having SE's since [...] in 2 months. Tobacco de pendence syndrome 40393607 F17.290 we spoke about quitting. She stopped smoking in the past during each of her pregnancie s. Anxiety 79022254 F41.9 It is doubtful that this is secondary to her actos. She will speak to her mental health provider about this. [id number] Marlin Amador MD Main Office [address] [place] [address] [place] [address] 06/28/2021 14:51:15 06/28/2021 15:56:27 Uncontrolled type 2 diabetes mellitus 270500901 E11.65 She was not able to tolerate the actos because of ankle swelling, nausea and bloating. She stopped this a couple of months ago and her SE's resolved. Unfortunat sheila her A1C increased from 8.1 to 9.3. We will add another po med and she understand s that she may need meds that require injections in the future. Schizophrenia 22780890 F 20.3 on meds, living on her own with supervisio n and followed by psych. Hyperlipidemia 34823102 E78.5 LDL at goal. Will check fasting lipid level next appointmen t. [id number] Marlin Amador MD Main Office [address] [place] [address] [place] [address] 08/16/2021 13:29:39 08/16/2021 14:38:24 Tinea cruris 494814760 B35.6 Candidiasis of vagina 72 799936 B37.3 [id number] Marlin Amaodr MD Main Office [address] [place] [address] [place] [address] 12/13/2021 12:41:16 12/13/2021 13:49:23 Adult health examination 640014646 Z00.00 UTD with immunizati ons. Had a PAP done Jul 2015 and will return for a PAP. Does not want to do one today. Uncontroll ed type 2 diabetes mellitus 411964709 E11.65 She was not able to tolerate the actos because of ankle swelling, nausea and bloating. She stopped this a couple of months ago and her SE's resolved. Unfortunat sheila her A1C increased from 8.1 to 9.3. We will add another po med and she understand s that she may need meds that require injections in the future. Chronic ob structive pulmonary disease 87915025 J44.9 Continues to smoke Hyperlipidemia 78224385 E78.5 LDL at goal. Will check fasting lipid level. Schizophrenia 89238595 F 20.3 on meds, living on her own with supervisio n and followed by psych. Body mass index 30+ - obesity 426280932 E66.01 Z68.33 [id number] Marlin Amador MD Main Office [address] [facility] [address] [place] [address] 08/29/2022 13:05:29 08/29/2022 14:30:53 Uncontrolled type 2 diabetes mellitus 020765412 E11.65 She was not able to tolerate the actos because of ankle swelling, nausea and bloating. She stopped this and her SE's resolved. . We added jardiance and tradjenta and her A1C came down from 9.3 to 7.6. She will work on lifestyle changes to bring this down more. Allergic rhinitis 134088 04 J30.9 continue current mgmt Schizophrenia 09774240 F 20.3 on meds, living on her own with [facility] n and followed by psych. [id number] Marlin Amador MD Main Office [address] [facility] [address] [place] [address] 04/24/2023 14:19:20 04/24/2023 15:26:54 Uncontrolled type 2 diabetes mellitus 521883447 E11.65 She was not able to tolerate the actos because of ankle swelling, nausea and bloating. She stopped this and her SE's resolved. . We added jardiance and tradjenta and her A1C came down from 9.3 to 7.6. She checks her sugars and says that they are generally in the low 100's. Schizophrenia 25124531 F 20.3 on meds, living on her own with supervisio n and followed by psych. Allergic rhinitis 573101 04 J30.9 continue current mgmt Chronic ob structive pulmonary disease 54074214 J44.9 Continues to smoke [id number] Marlin Amador MD Main Office [address] [facility] 207 [place] [address] 08/07/2023 13:23:20 08/07/2023 14:27:58 Uncontrolled type 2 diabetes mellitus 111582972 E11.65 She was not able to tolerate the actos because of ankle swelling, nausea and bloating. She stopped this and her SE's resolved. . We added jardiance and tradjenta and her A1C came down from 9.3 to 7.2. She checks her sugars and says that they are generally in the low 100's. Adult heal th examination 051295640 Z00.00 UTD with immunizati ons. Had a PAP done Jul 2015 and will return for a PAP. Does not want to do one today. Screening for malignant neoplasm of colon 575033542 Z12.11 Tobacco de pendence syndrome 96970460 F17.290 we spoke about quitting. She stopped smoking in the past during each of her pregnancie s. Chronic ob structive pulmonary disease 80816269 J44.9 Continues to smoke Hyperlipidemia 07356246 E78.5 LDL at goal. Will check fasting lipid level. Schizophrenia 12745072 F 20.3 on meds, living on her own with supervis n and followed by psych. Has some mild depression which is followed by her psych provider. [id number] MARIE Pfeiffer Main Office [address] [facility] 207 [place] [address] 11/23/2023 11:21:25 11/23/2023 12:21:38 Uncontrolled type 2 diabetes mellitus 773985438 E11.65 A1C increased from 7.2 to 7.3, Would like to continue on metformin and tradjenta instead of adding med, will stay consistent with exercise and trying to eat better. Does exercises in 3 sets to get through during the day. Tradjenta refilled. Schizophrenia 88188625 F 20.3 on meds, living on her own with supervisio n and followed by psych. Allergic rhinitis 740455 04 J30.9 continue current mgmt Chronic ob structive pulmonary disease 43561515 J44.9 Continues to smoke [id number] Marlin Amador MD Main Office [address] [facility] 207 [facility] [place] [address] 02/27/2024 14:25:32 02/27/2024 15:27:48 Uncontrolled type 2 diabetes mellitus 879427254 E11.65 She was not able to tolerate the Actos because of ankle swelling, nausea and bloating. She stopped this and her SE's resolved. . We added jardiance and tradjenta and her A1C came down from 9.3 to 7.2. But the jardiance is no longer on formulary. She also stopped the tradjenta for unclear reasons but will restart it. Fatigue 92875543 R53.83 Hyperlipidemia 61052502 E78.5 Last LDL at goal. Will check fasting lipid level. Schizophrenia 56904659 F 20.3 on meds, living on her [...] [place] [employer] Aura Sergio Sana [id number] Aura Hood 08/29/2022 2 [place] [facility] Aura Sergio Sana [id number] Aura Hood 04/24/2023 1 [place] [employer] Aura Sergio Sana [id number] Aura Hood 04/24/2023 2 [place] [facility] Aura M Sana [id number] Aura Hood 08/07/2023 1 [place] [employer] Aura M Sana [id number] Aura Hood 08/07/2023 2 [place] [facility] Aura Sergio Sana [id number] Aura Hood 11/23/2023 1 [place] [facility] Aura Hood [id number] Aura Hood 11/23/2023 2 [place] [facility] Aura Hood [id number] Aura Hood 02/27/2024 1 [place] [facility] Aura Hood [id number] Aura Hood 02/27/2024 2 [place] [facility] Aura Hood [id number] Aura Hood Notes Date Note Type Note [...] Mental Health and is followed by psych. Marlin Amador MD [address] [address], [place], [address], [facility] 08/29/2022 17:16:25 04/24/2023 text/html Diabetes F/URepo rted [...] this has not been a problem recently. Marlin Amador MD [address], [address], [facility] 04/24/2023 17:14:52 08/07/2023 text/html Generic HPI TemplateReported bypatient.Notes:She is followed by psych and is also by the [facility]. She lives on her own with [...] Falls Risk Assessment:no frequent falls while walking Marlin Amador MD [address] [facility] [address], [place], [address], [facility] 08/09/2023 07:47:33 11/23/2023 text/html Generic HPI TemplateReported [...] with just 2 meds. MARIE Pfeiffer [address] [facility] [address], [place], [address], [facility] 11/23/2023 12:21:58 02/27/2024 text/html Diabetes F/URepo rted [...] this has not been a problem recently. Marlin Amador MD [address] [address], [place], [address], [facility] 02/27/2024 18:37:36 OBGyn Episode No OBEpisode recorded.
== END 2024-11-25 15:03 | disposition home or self-care (01) ==
LOC: HO.LABR 15:02
PROVIDERS: PCP Internal Medicine; Visit Provider Psychiatry & Neurology Psychiatry
DX: Z79.899 Other long term (current) drug therapy (principal)
CPT/HCPCS: 36415; 85025

== ENCOUNTER 2024-12-23 14:54 | Outpatient (REF) | payer MEDICARE, MEDICAID, SELFPAY ==
[2024-12-23 15:04] LABS: MANUAL DIFF FLAG NO
[2024-12-23 15:52] LABS: Basophils Percent Auto 0.4 % (0-2); Eosinophils Absolute Auto 0.1 X10*3/uL (0.0-0.4); Eosinophils Percent Auto 0.6 % (0-4); Hematocrit 45.6 % (37.0-47.0); Imm Gran Abs Auto 0.03 X10*3/uL (0.00-0.03); Imm Gran Pct Auto 0.3 % (0.0-0.4); Lymphocytes Absolute Auto 3.9 X10*3/uL (1.2-4.9); Lymphocytes Percent Auto 43.6 % (20-40); Mean Corpuscular HGB Conc 32.9 g/dl (31.0-35.0); Mean Corpuscular Hemoglobin 29.7 pg (27.0-33.0); Mean Corpuscular Volume 90.3 fL (80.0-98.0); Mean Platelet Volume 11.3 fL (9.4-12.3); Monocytes Absolute Auto 0.6 X10*3/uL (0.1-1.2); Neutrophils Absolute Auto 4.3 x10*3/uL (2.0-8.3); Neutrophils Percent Auto 48.1 % (45-73); Platelet Count 190 X10*3/uL (160-400); Red Blood Count 5.05 X10*6/uL (4.20-5.50); Red Cell Distribution Width 13.9 % (11.0-16.0)
--- OUTSIDE RECORDS SUMMARY | 2024-12-23 17:45 | XMS_ITS | Data Portability ---
Author Organization [facility], Main Office Address [address] [facility] [address] [place] [address] Care Team Providers Care Stiff Leg Operator Name Role Phone MARLIN AMADOR Primary Care [...] DO Not Attach Compendium, Do Not Delete/merge, [id number] 4 15:14:28 microal bumin, urine 2023 024 OMAR [facility] (Centralized Electronic Ordering - All Locations), Patient Can Go To The Location Of Their Choice, [id number] 4 12:06:20 LDL, direct, serum 2023 024 OMAR [facility], [address], [place], [address], 4 12:06:19 HDL cholest monalisa, serum 2023 024 [email or web address] [facility] (Centralized Electronic Ordering - All Locations), Patient Can Go To The Location Of Their Choice, [id number] 5 09:12:13 CBC w/ auto diff 2023 024 OMAR [facility], [address], [place], [address], 4 12:06:16 BMP, serum or plasma 2023 024 OMAR [facility], [address], [place], [address], 4 12:06:17 TSH, ultra-s ensitiv e, serum 2023 024 OMAR [facility], [address], [place], [address], 4 12:06:21 hemoglo bin A1C, fingers tick 2022 023 [email or web address] In-Office Order, Internal Use Only DO Not Attach Compendium DO Not Attach Compendium, Do Not Delete/merge, [id number] 3 14:11:57 microal bumin, urine 2022 023 [email or web address] [facility], [address], [address], [place], [address], 3 07:40:42 CMP, serum or plasma 2022 023 [email or web address] [facility], [address], [address], [place], [address], 4 08:06:34 lipid panel, serum 2022 023 OMAR [facility], [address], [address], [place], [address], 4 12:06:18 CBC w/ auto diff 2022 023 [email or web address] [facility], [address], [address], [place], [address], 3 07:40:42 HbA1c (hemogl obin A1c), blood 2022 023 [email or web address] [facility], [address], [address], [place], [address], 4 10:48:02 microal bumin, urine 2022 023 [email or web address] [facility], [address], [address], [place], [address], 3 11:57:56 CMP, serum or plasma 2022 023 [email or web address] [facility], [address], [address], [place], [address], 4 10:48:02 lipid panel, serum 2022 023 OMAR [facility], [address], [address], [place], [address], 3 15:18:50 CBC w/ auto diff 2022 023 [email or web address] [facility], [address], [address], [place], [address], 3 11:57:56 hemoglo bin A1C, fingers tick 2021 022 [email or web address] In-Office Order, Internal Use Only DO Not Attach Compendium DO Not Attach Compendium, Do Not Delete/merge, [id number] 2 14:18:57 Referral diabeti c ophthal mology referra l - Type 2 diabete s requiri ng regular eye exams. 2022 023 romero [facility], [address], [place], [address], 4 08:46:58 gastroe nterolo gist referra l - Needs colon cancer screeni ng 2022 023 [email or web address] Not available 3 15:13:27 Procedures colonos copy screeni ng (PROC) 2022 023 In-Office Order, Internal Use Only DO Not Attach Compendium DO Not Attach Compendium, Do Not Delete/merge, [id number] 3 15:13:03 Surgeries None recorde d. Imaging None recorde d. Medication Orders Tradjen ta 5 mg tablet 2023 024 [facility]47897, [address] [place] [address], [id number], 4 15:14:32 Tradjen ta 5 mg tablet 2023 024 [email or web address] [facility] #57410, [address] [place] [address], [id number], 4 14:39:34 Vitamin C 250 mg tablet 2021 022 [facility] #73694, [address] [place] [address], [id number], 2 14:22:47 metform in 1,000 mg tablet 2021 022 [facility] #90872, [address] [place] [address], [id number], 2 13:55:17 Jardian ce 25 mg tablet 2021 022 [facility] #19491, [address] [place] [address], [id number], 4 09:05:02 linagli ptin 5 mg tablet 2021 022 [email or web address] [facility] #82413, [address] [place] [address], [id number], 4 12:01:02 Patient TargetsNo targets recorded. Patient Instructions Encounter Date Encounter Id Patient Instructions Last Modified By Organization Details Last Modified Time 08/29/2022 [id number] allergies: care instructions [email or web address] Not available 08/29/2022 14:22:36 managing your allergies: care instructions [email or web address] Not available 08/29/2022 14:22:36 schizophrenia: care instructions [email or web address] Not available 08/29/2022 17:03:18 type 2 diabetes: care instructions [email or web address] Not available 08/29/2022 14:18:57 04/24/2023 [id number] allergies: care instructions [email or web address] Not available 04/24/2023 16:24:27 managing your allergies: care instructions acennerazzo Not available 04/24/2023 16:24:27 schizophrenia: care instructions acennerazzo Not available 04/24/2023 16:24:27 type 2 diabetes: care instructions acennerazzo Not available 04/24/2023 16:24:27 chronic obstructive pulmonary disease (COPD): care instructions acennerazzo Not available 04/24/2023 15:18:47 learning about copd and how to prevent lung infections acennerazzo Not available 04/24/2023 15:18:47 08/07/2023 [id number] deciding about using medicines to quit smoking [...] cancer acennerazzo Not available 08/07/2023 14:15:06 11/23/2023 [id number] allergies: care instructions [email or web address] Not available 11/23/2023 [...] concerns [email or web address] Not available 11/23/2023 12:04:13 02/27/2024 [id number] schizophrenia: care instructions acennerazzo Not available 02/27/2024 18:37:24 type 2 diabetes: care instructions acennerazzo Not available 02/27/2024 15:14:26 Reason for Referral Diabetic Ophthalmology Refer ral for Uncontrolled type 2 diabetes mellitus Type 2 diabetes requiring regular eye exams. Referring Physician: Marlin Amador [facility], Encounter Date: 08/07/2023 Quality Control Systems Manager Referral for Screening for malignant neoplasm of colon Needs colon cancer screening Referring Physician: Marlin Amador [facility], Encounter Date: 08/07/2023 Results Created Date Observation Date Name Description Value Unit Range Abnormal Flag Note LastModifiedBy Organization Detail LastModifiedTime 08/29/20 22 08/29/2022 hemog lobin A1C, finge rstic k A1C 7.6 % 4-6 abnormal Not Available In-Office Order Internal Use Only DO Not Attach Compendium DO Not Attach Compendium, Do Not Delete/merge, [id number] 08/29/2022 13:24:28 08/07/20 23 08/07/2023 hemog lobin A1C, finge rstic k A1C 7.2 % 4-6 Not Available In-Office Order Internal Use Only DO Not Attach Compendium DO Not Attach Compendium, Do Not Delete/merge, [id number] 08/07/2023 13:25:15 11/23/19 24 11/23/2023 hemog lobin A1C, lj rslilian k A1C 7.3 % 4-6 abnormal Not Available In-Office Order Internal Use Only DO Not Attach Compendium DO Not Attach Compendium, Do Not Delete/merge, [id number] 11/23/2023 12:17:33 02/27/20 24 02/28/2024 CBC WITH DIFFE RENTI AL/PL ATELE T WBC 9.5 x10e3 /uL 3.4-10 .8 Not Available [facility] ([facility]) [address] [facility], [place], [address], 02/28/2024 12:06:16 02/27/20 24 02/28/2024 CBC WITH DIFFE RENTI AL/PL ATELE T RBC 5.03 x10e6 /uL 3.77-5 .28 Not Available [facility] ([facility]) [address] [facility], [place], [address], 02/28/2024 12:06:16 02/27/20 24 02/28/2024 CBC WITH DIFFE RENTI AL/PL ATELE T hemoglobin 15.3 g/dL 11.1-1 5.9 Not Available [facility] ([facility]) [address] [facility], [place], [address], 02/28/2024 12:06:16 02/27/20 24 02/28/2024 CBC WITH DIFFE RENTI AL/PL ATELE T hematocrit 46.4 % 34.0-4 6.6 Not Available [facility] ([facility]) [address] [facility], [place], [address], 02/28/2024 12:06:16 02/27/20 24 02/28/2024 CBC WITH DIFFE RENTI AL/PL ATELE T MCV 92 fL 79-97 Not Available [facility] ([facility]) [address] [place], [address], 02/28/2024 12:06:16 02/27/20 24 02/28/2024 CBC WITH DIFFE RENTI AL/PL ATELE T MCH 30.4 pg 26.6-3 3.0 Not Available [facility] ([facility]) [address] [facility], [place], [address], 02/28/2024 12:06:16 02/27/20 24 02/28/2024 CBC WITH DIFFE RENTI AL/PL ATELE T MCHC 33.0 g/dL 31.5-3 5.7 Not Available [facility] ([facility]) [address] [facility], [place], [address], 02/28/2024 12:06:16 02/27/20 24 02/28/2024 CBC WITH DIFFE RENTI AL/PL ATELE T RDW 13.5 % 11.7-1 5.4 Not Available [facility] ([facility]) [address] [facility], [place], [address], 02/28/2024 12:06:16 02/27/20 24 02/28/2024 CBC WITH DIFFE RENTI AL/PL ATELE T platelets 222 x10e3 /uL 150-45 0 Not Available [facility] ([facility]) [address] [facility], [place], [address], 02/28/2024 12:06:16 02/27/20 24 02/28/2024 CBC WITH DIFFE RENTI AL/PL ATELE T neutrophils 47 % not estab. Not Available [facility] ([facility]) [address] [facility], [place], [address], 02/28/2024 12:06:16 02/27/20 24 02/28/2024 CBC WITH DIFFE RENTI AL/PL ATELE T lymphs 44 % not estab. Not Available [facility] ([facility]) [address] [facility], [place], [address], 02/28/2024 12:06:16 02/27/20 24 02/28/2024 CBC WITH DIFFE RENTI AL/PL ATELE T monocytes 8 % not estab. Not Available [facility] ([facility]) [address] [facility], [place], [address], 02/28/2024 12:06:16 02/27/20 24 02/28/2024 CBC WITH DIFFE RENTI AL/PL ATELE T eos 1 % not estab. Not Available [facility] ([facility]) [address] [facility], [place], [address], 02/28/2024 12:06:16 02/27/20 24 02/28/2024 CBC WITH DIFFE RENTI AL/PL ATELE T basos 0 % not estab. Not Available [facility] ([facility]) [address] [facility], [place], [address], 02/28/2024 12:06:16 02/27/20 24 02/28/2024 CBC WITH DIFFE RENTI AL/PL ATELE T immature cells RAILWAY PATROL OFFICER Not Available [facility] ([facility]) [address] [place], [address], 02/28/2024 12:06:16 02/27/20 24 02/28/2024 CBC WITH DIFFE RENTI AL/PL ATELE T neutrophils (absolute) 4.4 x10e3 /uL 1.4-7. 0 Not Available [facility] ([facility]) [address] [facility], [place], [address], 02/28/2024 12:06:16 02/27/20 24 02/28/2024 CBC WITH DIFFE RENTI AL/PL ATELE T lymphs (absolute) 4.2 x10e3 /uL 0.7-3. 1 above high normal Not Available [facility] ([facility]) [address] [facility], [place], [address], 02/28/2024 12:06:16 02/27/20 24 02/28/2024 CBC WITH DIFFE RENTI AL/PL ATELE T monocytes(ab solute) 0.7 x10e3 /uL 0.1-0. 9 Not Available [facility] ([facility]) [address] [facility], [place], [address], 02/28/2024 12:06:16 02/27/20 24 02/28/2024 CBC WITH DIFFE RENTI AL/PL ATELE T eos (absolute) 0.1 x10e3 /uL 0.0-0. 4 Not Available [facility] ([facility]) [address] [facility], [place], [address], 02/28/2024 12:06:16 02/27/20 24 02/28/2024 CBC WITH DIFFE RENTI AL/PL ATELE T baso (absolute) 0.0 x10e3 /uL 0.0-0. 2 Not Available [facility] ([facility]) [address] [facility], [place], [address], 02/28/2024 12:06:16 02/27/20 24 02/28/2024 CBC WITH DIFFE RENTI AL/PL ATELE T immature granulocytes 0 % not estab. Not Available [facility] ([facility]) [address] [facility], [place], [address], 02/28/2024 12:06:16 02/27/20 24 02/28/2024 CBC WITH DIFFE RENTI AL/PL ATELE T immature grans (abs) 0.0 x10e3 /uL 0.0-0. 1 Not Available [facility] ([facility]) [address] [place], [address], 02/28/2024 12:06:16 02/27/20 24 02/28/2024 CBC WITH DIFFE RENTI AL/PL ATELE T NRBC RAILWAY PATROL OFFICER Not Available [facility] ([facility]) [address] [facility], [place], [address], 02/28/2024 12:06:16 02/27/20 24 02/28/2024 CBC WITH DIFFE JAZMYN AL/PL CHANDRIKA T hematology comments: RAILWAY PATROL OFFICER Not Available [facility] ([facility]) [address] [place], [address], 02/28/2024 12:06:16 02/27/20 24 02/28/2024 BASIC METAB OLIC PANEL (8) glucose 151 mg/dL 70-99 above high normal Not Available [facility] ([facility]) [address] [place], [address], 02/28/2024 12:06:17 02/27/20 24 02/28/2024 BASIC METAB OLIC PANEL (8) BUN 6 mg/dL 6-24 Not Available [facility] ([facility]) [address] [place], [address], 02/28/2024 12:06:17 02/27/20 24 02/28/2024 BASIC METAB OLIC PANEL (8) creatinine 0.51 mg/dL 0.57-1 .00 below low normal Not Available [facility] ([facility]) [address] [place], [address], 02/28/2024 12:06:17 02/27/20 24 02/28/2024 BASIC METAB OLIC PANEL (8) eGFR 114 mL/mi n/1.7 3 >59 Not Available [facility] ([facility]) [address] [place], [address], 02/28/2024 12:06:17 02/27/20 24 02/28/2024 BASIC METAB OLIC PANEL (8) BUN/creatini ne ratio 12 9-23 Not Available [facility] ([facility]) [address] [place], [address], 02/28/2024 12:06:17 02/27/20 24 02/28/2024 BASIC METAB OLIC PANEL (8) sodium 141 mmol/ L 134-14 4 Not Available [facility] ([facility]) [address] [place], [address], 02/28/2024 12:06:17 02/27/20 24 02/28/2024 BASIC METAB OLIC PANEL (8) potassium 4.6 mmol/ L 3.5-5. 2 Not Available [facility] ([facility]) [address] [place], [address], 02/28/2024 12:06:17 02/27/20 24 02/28/2024 BASIC METAB OLIC PANEL (8) chloride 98 mmol/ L 96-106 Not Available [facility] ([facility]) [address] [place], [address], 02/28/2024 12:06:17 02/27/20 24 02/28/2024 BASIC METAB OLIC PANEL (8) carbon dioxide, total 31 mmol/ L 20-29 above high normal Not Available [facility] ([facility]) [address] [place], [address], 02/28/2024 12:06:17 02/27/20 24 02/28/2024 BASIC METAB OLIC PANEL (8) calcium 9.8 mg/dL 8.7-10 .2 Not Available [facility] ([facility]) [address] [place], [address], 02/28/2024 12:06:17 02/27/20 24 02/28/2024 LIPID PANEL cholesterol, total 178 mg/dL 100-19 9 Not Available [facility] ([facility]) [address] [place], [address], 02/28/2024 12:06:18 02/27/20 24 02/28/2024 LIPID PANEL triglyceride s 116 mg/dL 0-149 Not Available [facility] ([facility]) [address] [place], [address], 02/28/2024 12:06:18 02/27/20 24 02/28/2024 LIPID PANEL HDL cholesterol 96 mg/dL >39 Not Available [facility] ([facility]) [address] [place], [address], 02/28/2024 12:06:18 02/27/20 24 02/28/2024 LIPID PANEL VLDL cholesterol luke 20 mg/dL 5-40 Not Available [facility] ([facility]) [address] [place], [address], 02/28/2024 12:06:18 02/27/20 24 02/28/2024 LIPID PANEL LDL chol calc (nih) 62 mg/dL 0-99 Not Available [facility] ([facility]) [address] [place], [address], 02/28/2024 12:06:18 02/27/20 24 02/28/2024 LIPID PANEL comment: RAILWAY PATROL OFFICER Not Available [facility] ([facility]) [address] [place], [address], 02/28/2024 12:06:18 02/27/20 24 02/28/2024 LDL PETE STERO L (DIRE CT) LDL chol. (direct) 65 mg/dL 0-99 Not Available [facility] ([facility]) [address] [place], [address], 02/28/2024 12:06:19 02/27/20 24 02/28/2024 ALBUM IN, RANDO M URINE albumin, urine 13.2 ug/mL not estab. Not Available [facility] ([facility]) [address] [place], [address], 02/28/2024 12:06:20 02/27/20 24 02/28/2024 TSH RFX ON ABNOR MAL TO FREE T4 TSH 1.110 uIU/m L 0.450- 4.500 Not Available [facility] ([facility]) [address] [place], [address], 02/28/2024 12:06:20 02/27/20 24 02/27/2024 hemog lobin A1Clj A1C 8.2 % 4-6 high Not Available In-Office Order Internal Use Only DO Not Attach Compendium DO Not Attach Compendium, Do Not Delete/merge, [id number] 02/27/2024 14:30:40 Result Notes None recorded. Problems Name Problem SNOMED Code Status Onset Date Resolution Date Notes Provider Name and Address Organization Details Recorded Time Abdomina l pain 62929269 Completed 201104/14/2014 IMPRESSI ON: PT WITH INTERMIT [...] BY ANTHONY GALVEZ ON/ADDEN DUM Not Available [facility] 4 14:17:44 Acute sinusiti s [id number] Completed 200804/14/2014 RECORDED 01/13/20 09 10:58AM BY SAMUEL CELIS MA, ANTHONY ON/ADDEN DUM Not Available [facility] 4 14:17:44 Allergic rhinitis 37433750 Active Marlin Amador MD [address] [address], [place], [address] , [facility] 5 17:55:35 Screenin g for malignan t neoplasm of breast Completed 201304/14/2014 RECORDED 12/24/19 14 8:19AM BY ANTHONY GALVEZ ON/ADDEN DUM Not Available [facility] 4 14:17:45 Cough [id number] Completed 200704/14/2014 DATE: 08/06/20 08; IMPRESSI ON: W/ WHEEZING .; RECORDED 05/01/20 12 9:48AM BY ANTHONY GALVEZ ON/ADDEN DUM Xi Abarca MA [facility], [facility] 7 09:53:54 Tobacco dependen ce syndrome 46680213 Completed 201304/14/2014 RECORDED 12/24/19 14 8:19AM BY SIXTO GALVEZATI ON/ADDEN DUM Not Available [facility] 4 14:17:45 Type 2 diabetes mellitus without complica tion 220089736 Completed 201204/14/2014 IMPRESSI ON: NO CHANGES IN MGMT; CHECK LABS AND ADJUST IF NEEDED.; RECORDED 07/15/20 13 2:53PM BY AINSLEY MONSIVAIS MA, ANTHONY ON/ADDEN DUM Deja Murphy PA-C [address], [place], [address] , [facility] 7 13:54:58 Type 2 diabetes mellitus without complica tion 107025141 Completed 07/06/2017 Deja Murphy PA-C [address], [place], [address] , [facility] 7 13:54:58 Diarrhea 57832246 Completed 201104/14/2014 IMPRESSI ON: THIS SEEMS LIKE IBS GIVEN HER SX AND THE AMOUNT OF TIME SHE HAS HAD SX. DOUBT INFECTIO US BECAUSE OF THE DURATION . WILL CHECK STOOL STUDIES NEXT VISIT IF STILL SYMPTOMA TIC.; RECORDED 07/08/20 12 11:19AM BY ANTHONY GALVEZ ON/ADDEN DUM Not Available [facility] 4 14:17:45 Dizzines s and giddines s 821889298 Completed 201104/14/2014 RECORDED 05/01/20 12 9:48AM BY SIXTO GALVEZATI ON/ADDEN DUM Not Available [facility] 4 14:17:45 Dysmenor seng [id number] Completed 201104/14/2014 RECORDED 05/01/20 12 9:48AM BY SIXTO GALVEZATI ON/ADDEN DUM Not Available [facility] 4 14:17:45 Respirat ory finding 381079211 Completed 201104/14/2014 RECORDED 05/01/20 12 9:48AM BY SIXTO GALVEZATI ON/ADDEN DUM Not Available [facility] 4 14:17:45 Blood chemistr y outside referenc e range 850378389 Completed 201104/14/2014 RECORDED 05/01/20 12 9:48AM BY SIXTO GALVEZATI ON/ADDEN DUM Not Available [facility] 4 14:17:45 Malaise and fatigue 644786890 Completed 05/24/2017 Xi rodriguez, [facility] 7 09:53:48 Influenz a vaccine needed [id number] 06 Completed 201004/14/2014 DATE: 06/09/20 11; RECORDED 05/01/20 12 9:48AM BY ANTHONY GALVEZ ON/ADDEN DUM Not Available [facility] 4 14:17:45 Disorder of hair AND/OR hair follicle Completed 201104/14/2014 RECORDED 05/01/20 12 9:48AM BY SIXTO GALVEZATI ON/ADDEN DUM Not Available [facility] 4 14:17:45 Adult health examinat ion Completed 201304/14/2014 RECORDED 12/24/19 14 8:19AM BY SIXTO GALVEZATI ON/ADDEN DUM Not Available [facility] 4 14:17:45 Well child 527087498 Completed 201104/14/2014 RECORDED 05/01/20 12 9:48AM BY SIXTO GALVEZATI ON/ADDEN DUM Not Available [facility] 4 14:17:45 Pure hypercho lesterol emia 502092451 Completed 10/31/2016 Marlin Amador MD [address], [place], [address] , [facility] 7 14:03:55 Irritabl e bowel syndrome 19334117 Completed 201104/14/2014 RECORDED 07/08/20 12 11:19AM BY SIXTO GALVEZATI ON/ADDEN DUM Not Available [facility] 4 14:17:46 Primary malignan t neoplasm of uterine cervix 604141897 Completed 201204/14/2014 AGE 17, LASER REMOVAL; RECORDED 10/08/19 13 11:20AM BY SIXTO GALVEZATI ON/ADDEN DUM Not Available [facility] 4 14:17:46 Administ ration of bacteria l and viral vaccine Completed 200704/14/2014 RECORDED 08/06/20 08 2:05PM BY GM SEAMAN, OFFICE VISIT Not Available [facility] 4 14:17:46 Onychomy cosis due to dermatop hyte 008011411 Completed 201104/14/2014 RECORDED 05/01/20 12 9:48AM BY SIXTO GALVEZATI ON/ADDEN DUM Not Available [facility] 4 14:17:46 Knee pain Completed 201104/14/2014 RECORDED 05/01/20 12 9:48AM BY SIXTO GALVEZATI ON/ADDEN DUM Not Available [facility] 4 14:17:46 Immuniza tion refused Completed 201304/14/2014 RECORDED 12/24/19 14 8:19AM BY SIXTO GALVEZATI ON/ADDEN DUM Not Available [facility] 4 14:17:46 Posterio r rhinorrh ea 29664101 Completed 201104/14/2014 RECORDED 05/01/20 12 9:48AM BY SIXTO GALVEZATI ON/ADDEN DUM Not Available [facility] 4 14:17:46 Eruption [id number] Completed 200804/14/2014 RECORDED 01/13/20 09 10:58AM BY SAMUEL CELIS MA, ANTHONY ON/ADDEN DUM Not Available [facility] 4 14:17:46 Procedur e refused Completed 201104/14/2014 RECORDED 05/01/20 12 9:48AM BY SIXTO GALVEZATI ON/ADDEN DUM Not Available [facility] 4 14:17:46 Speciali zed medical examinat ion Completed 201104/14/2014 RECORDED 05/01/20 12 9:48AM BY KATY CATALAN I ANNOTATI ON/ADDEN DUM Not Available [facility] 4 14:17:46 Schizoph yanique 86347563 Active Stable on meds. Followed by psych Marlin Amador MD [address], [place], [address] , [facility] 6 13:25:02 Screenin g for malignan t neoplasm of cervix Completed 201104/14/2014 RECORDED 05/01/20 12 9:48AM BY SIXTO GALVEZATI ON/ADDEN DUM Not Available [facility] 4 14:17:46 Chronic sinusiti s 92464596 Completed 201104/14/2014 RECORDED 05/01/20 12 9:48AM BY SIXTO GALVEZATI ON/ADDEN DUM Not Available [facility] 4 14:17:46 Tobacco dependen ce syndrome 17064656 Active Marlin Amador MD [address], [place], [address] , [facility] 6 15:15:56 Trichomo nal vulvovag initis 22937558 Completed 201004/14/2014 DATE: 03/02/20 11; RECORDED 05/01/20 12 9:48AM BY SIXTO GALVEZATI ON/ADDEN DUM Not Available [facility] 4 14:17:46 Acute upper respirat ory infectio n 65786564 Completed 201204/14/2014 RECORDED 10/08/19 13 11:24AM BY SIXTO GALVEZATI ON/ADDEN DUM Not Available [facility] 4 14:17:47 Urinary incontin ence 258986937 Completed 200704/14/2014 RESOLVED DATE: 04/23/20 08; RECORDED 04/23/20 08 10:15AM BY MARLIN SILVA MD, ANNOTATI ON/ADDEN DUM Not Available [facility] 4 14:17:47 Wheezing 89629957 Completed 201204/14/2014 IMPRESSI ON: NO H/O ASTHMA. SHE WILL CALL IF SHE NEEDS TO USE THE PROAIR DAILY.; RECORDED 10/08/19 13 11:24AM BY SIXTO GALVEZATI ON/ADDEN DUM Not Available [facility] 4 14:17:47 Abdomina l pain 96066442 Completed 201105/04/2014 IMPRESSI ON: PT WITH INTERMIT [...] BY SIXTO GALVEZATI ON/ADDEN DUM Not Available [facility] 4 06:38:55 Acute sinusiti s [id number] Completed 200805/04/2014 RECORDED 01/13/20 09 10:58AM BY SAMUEL CELIS MA, SIXTOATI ON/ADDEN DUM Not Available [facility] 4 06:38:55 Screenin g for malignan t neoplasm of breast Completed 201305/04/2014 RECORDED 12/24/19 14 8:19AM BY SIXTO GALVEZATI ON/ADDEN DUM Not Available [facility] 4 06:38:55 Cough 92516586 Completed 200705/04/2014 DATE: 08/06/20 08; IMPRESSI ON: W/ WHEEZING .; RECORDED 05/01/20 12 9:48AM BY KATY CATALAN I ANNOTATI ON/ADDEN DUM Xi rodriguez, [facility] 7 09:53:54 Tobacco dependen ce syndrome 33726725 Completed 201305/04/2014 RECORDED 12/24/19 14 8:19AM BY KATY CATALAN I ANNOTATI ON/ADDEN DUM Not Available [facility] 4 06:38:55 Type 2 diabetes mellitus without complica tion 157378787 Completed 201205/04/2014 IMPRESSI ON: NO CHANGES IN MGMT; CHECK LABS AND ADJUST IF NEEDED.; RECORDED 07/15/20 13 2:53PM BY AINSLEY MONSIVAIS MA, ANTHONY ON/ADDEN DUM Deja Murphy PA-C [address], [place], [address] , [facility] 7 13:54:58 Diarrhea 51509811 Completed 201105/04/2014 IMPRESSI ON: THIS SEEMS LIKE IBS GIVEN HER SX AND THE AMOUNT OF TIME SHE HAS HAD SX. DOUBT INFECTIO US BECAUSE OF THE DURATION . WILL CHECK STOOL STUDIES NEXT VISIT IF STILL SYMPTOMA TIC.; RECORDED 07/08/20 12 11:19AM BY ANTHONY GALVEZ ON/ADDEN DUM Not Available [facility] 4 06:38:55 Dizzines s and giddines s 551261114 Completed 201105/04/2014 RECORDED 05/01/20 12 9:48AM BY ANTHONY GALVEZ ON/ADDEN DUM Not Available [facility] 4 06:38:55 Dysmenor seng 340256032 Completed 201105/04/2014 RECORDED 05/01/20 12 9:48AM BY ANTHONY GALVEZ ON/ADDEN DUM Not Available [facility] 4 06:38:55 Respirat ory finding 375232861 Completed 201105/04/2014 RECORDED 05/01/20 12 9:48AM BY ANTHONY GALVEZ ON/ADDEN DUM Not Available [facility] 4 06:38:55 Blood chemistr y outside referenc e range 536039199 Completed 201105/04/2014 RECORDED 05/01/20 12 9:48AM BY ANTHONY GALVEZ ON/ADDEN DUM Not Available [facility] 4 06:38:55 Influenz a vaccine needed [id number] 06 Completed 201005/04/2014 DATE: 06/09/20 11; RECORDED 05/01/20 12 9:48AM BY SIXTO GALVEZATI ON/ADDEN DUM Not Available [facility] 4 06:38:55 Disorder of hair AND/OR hair follicle Completed 201105/04/2014 RECORDED 05/01/20 12 9:48AM BY SIXTO GALVEZATI ON/ADDEN DUM Not Available [facility] 4 06:38:55 Adult health examinat ion Completed 201305/04/2014 RECORDED 12/24/19 14 8:19AM BY SIXTO GALVEZATI ON/ADDEN DUM Not Available [facility] 4 06:38:55 Well child 713192869 Completed 201105/04/2014 RECORDED 05/01/20 12 9:48AM BY SIXTO GALVEZATI ON/ADDEN DUM Not Available [facility] 4 06:38:55 Irritabl e bowel syndrome 13493846 Completed 201105/04/2014 RECORDED 07/08/20 12 11:19AM BY SIXTO GALVEZATI ON/ADDEN DUM Not Available [facility] 4 06:38:56 Laborato ry procedur e performe d 295571686 Completed 201305/26/2014 RECORDED 04/02/20 14 2:51PM BY NATA RIVERS, LAB REQ Marlin Amador MD [address], [place], [address] , [facility] [place] 4 12:00:02 Primary malignan t neoplasm of uterine cervix 101149183 Completed 201205/04/2014 AGE 17, LASER REMOVAL; RECORDED 10/08/19 13 11:20AM BY SIXTO GALVEZATI ON/ADDEN DUM Not Available [facility] 4 06:38:56 Administ ration of bacteria l and viral vaccine Completed 200705/04/2014 RECORDED 08/06/20 08 2:05PM BY GM SEAMAN, OFFICE VISIT Not Available [facility] 4 06:38:56 Onychomy cosis due to dermatop hyte 927771283 Completed 201105/04/2014 RECORDED 05/01/20 12 9:48AM BY SIXTO GALVEZATI ON/ADDEN DUM Not Available [facility] 4 06:38:56 Knee pain Completed 201105/04/2014 RECORDED 05/01/20 12 9:48AM BY SIXTO GALVEZATI ON/ADDEN DUM Not Available [facility] 4 06:38:56 Immuniza tion refused Completed 201305/04/2014 RECORDED 12/24/19 14 8:19AM BY SIXTO GALVEZATI ON/ADDEN DUM Not Available [facility] 4 06:38:56 Posterio r rhinorrh ea 74301161 Completed 201105/04/2014 RECORDED 05/01/20 12 9:48AM BY SIXTO GALVEZATI ON/ADDEN DUM Not Available [facility] 4 06:38:56 Eruption 475972932 Completed 200805/04/2014 RECORDED 01/13/20 09 10:58AM BY SAMUEL CELIS MA, SIXTOATI ON/ADDEN DUM Not Available [facility] 4 06:38:56 Procedur e refused Completed 201105/04/2014 RECORDED 05/01/20 12 9:48AM BY SIXTO GALVEZATI ON/ADDEN DUM Not Available [facility] 4 06:38:56 Speciali zed medical examinat ion Completed 201105/04/2014 RECORDED 05/01/20 12 9:48AM BY SIXTO GALVEZATI ON/ADDEN DUM Not Available [facility] 4 06:38:56 Screenin g for malignan t neoplasm of cervix Completed 201105/04/2014 RECORDED 05/01/20 12 9:48AM BY KATY CATALAN I ANNOTATI ON/ADDEN DUM Not Available [facility] 4 06:38:56 Chronic sinusiti s 14994820 Completed 201105/04/2014 RECORDED 05/01/20 12 9:48AM BY SIXTO GALVEZATI ON/ADDEN DUM Not Available [facility] 4 06:38:56 Trichomo nal vulvovag initis 69087079 Completed 201005/04/2014 DATE: 03/02/20 11; RECORDED 05/01/20 12 9:48AM BY SIXTO GALVEZATI ON/ADDEN DUM Not Available [facility] 4 06:38:56 Acute upper respirat ory infectio n 54194551 Completed 201205/04/2014 RECORDED 10/08/19 13 11:24AM BY SIXTO GALVEZATI ON/ADDEN DUM Not Available [facility] 4 06:38:56 Urinary incontin ence 267965522 Completed 200705/04/2014 RESOLVED DATE: 04/23/20 08; RECORDED 04/23/20 08 10:15AM BY MARLIN SILVA MD, ANNOTATI ON/ADDEN DUM Not Available [facility] 4 06:38:56 Wheezing 05167252 Completed 201205/04/2014 IMPRESSI ON: NO H/O ASTHMA. SHE WILL CALL IF SHE NEEDS TO USE THE PROAIR DAILY.; RECORDED 10/08/19 13 11:24AM BY SIXTO GALVEZATI ON/ADDEN DUM Not Available [facility] 4 06:38:56 Type 2 diabetes mellitus 03577109 Completed 01/28/2015 Deja Murphy PA-C [address], [place], [address] , [facility] 7 13:55:02 Cough 63514411 Completed 05/24/2017 Xi rodriguez, [facility] 7 09:53:54 Nasal congesti on 39322442 Completed 05/24/2017 Xi rodriguez, [facility] 7 09:53:58 Type 2 diabetes mellitus 77461623 Completed 07/06/2017 Deja Murphy PA-C [address], [place], [address] , [facility] 7 13:55:02 Gynecolo gic examinat ion Active Marlin Amador MD [address] [facility] [address], [place], [address] , [facility] 5 06:59:59 Chest pain 39862946 Completed 05/24/2017 Xi rodriguez, [facility] 7 09:53:51 Chronic obstruct meri pulmonar y disease 90350624 Active 2016 Rubén Murphy PA-C [address], [place], [address] , [facility] 7 13:22:11 Uncontro lled type 2 diabetes mellitus 294553212 Active 2016 Deja Murphy PA-C [address], [place], [address] , [facility] 7 13:55:08 Hyperlip idemia 19295699 Active 2020 Marlin Amador MD [address], [place], [address] , [facility] 1 19:28:56 Problem Notes None recorded. Procedures Surgical History Date Name Laterality Status Provider Name and Address Organization Details Recorded Time 3 Diabetic Foot Exam (Monofilament) completed Marlin Amador MD [address] [facility] [address], [place], [address], [facility] 04/24/2023 15:00:38 2 Diabetic Foot Exam (Monofilament) completed Marlin Amador MD [address], [address], [facility] 12/13/2021 14:39:14 1 Diabetic Foot Exam (Monofilament) completed Marlin Amador MD [address], [address], [facility] 02/07/2021 15:13:59 1 Diabetic Foot Exam (Monofilament) completed Marlin Amador MD [address], [address], [facility] 10/15/2020 13:38:53 0 Diabetic Foot Exam (Monofilament) completed Marlin Amador MD [address], [address], [facility] 04/14/2020 17:17:01 9 Diabetic Foot Exam (Monofilament) completed Marlin Amador MD [address], [address], [facility] 03/20/2019 15:31:43 8 Diabetic Foot Exam (Monofilament) completed Marlin Amador MD [address], [address], [facility] 02/28/2018 07:11:43 6 Most Recent Mammogram completed Magda Marcus [facility] 01/07/2016 08:42:52 6 Mammogram Screening completed Magdamariela Marcus [facility] 01/07/2016 08:42:52 5 Date of Last Pap Smear completed Luis Alberto Smith [facility] 03/22/2017 16:18:21 4 Nebulizer tx completed MARIE Pfeiffer [address], [place], [address], [facility] 07/15/2014 14:31:36 Other completed Samuel boone MA [facility] 07/15/2014 14:13:40 Imaging Results None recorded. Procedure Notes None recorded. Medical Equipment None Reported. Allergies Allergen ID Allergen Name Allergen Category Reaction Reaction Severity Criticality Documentation Date Start Date Code Code System Note Provider Name and Address Organization Details Recorded Time 99666 Actos medicatio n edema moderate Not available 06/29/2021 59028 2 RxNorm Marlin dean MD [address] [facility] [address], [place], [address], [facility] 09:25:21 Medications Name Sig Start Date Stop Date Status Note LastModified by Organization Details LastModified Time metformin hydrochlo ride 1000 mg tabs 03/23 [...] completed Not Available Not Available Not Available smz/tmp ds tab 800-160 03/23 completed Not [...] 02/03/20 10 2:24PM BY LUIS ALBERTO SMITH [facility] ON/LYRIC DUM; Not Available Not Available [...] completed Seems like it was replaced by [facility] Not Available Not Available Not [...] Not Available Not Available Not Available FreeStyle [place] kit DAILY 07/03 completed RECORDED 07/15/20 13 [...] 1 TABLET BY MOUTH EVERY DAY DIRECTED 2024 active Not Available Not Available Not Avai lable TRUEplus Lancets 30 gauge USE 1 LANCET [...] Updated DateTime 2 165.74 cm 33.7 kg/m2 77385.8 4 g 98 /min 93 % 93 % 98.24 [degF] 114 mm[Hg] 74 mm[Hg] Masha Howard MA [facility] [place] 2 13:30:52 Date Recorded Body height Body mass index (BMI) Body weight Heart rate Oxygen saturation Oxygen saturation in Arterial blood by Pulse oximetry Body temperature Systolic blood pressure Diastolic blood pressure Provider Name and Address Organization Details Last Updated DateTime 3 165.74 cm 32.8 kg/m2 04646.3 9 g 103 /min 95 % 95 % 97.6 [degF] 121 mm[Hg] 72 mm[Hg] Masha Howard MA [facility] [place] 3 14:36:54 Date Recorded Body height Body mass index (BMI) Body weight Heart rate Oxygen saturation Oxygen saturation in Arterial blood by Pulse oximetry Body temperature Systolic blood pressure Diastolic blood pressure Provider Name and Address Organization Details Last Updated DateTime 3 165.74 cm 33 kg/m2 24867.4 7 g 91 /min 96 % 96 % 98.2 [degF] 140 mm[Hg] 78 mm[Hg] Janny Zapata MA [facility] [place] 3 13:32:43 Date Recorded Body height Body mass index (BMI) Body weight Heart rate Oxygen saturation Oxygen saturation in Arterial blood by Pulse oximetry Body temperature Systolic blood pressure Diastolic blood pressure Provider Name and Address Organization Details Last Updated DateTime 4 165.74 cm 33.4 kg/m2 44509.6 6 g 84 /min 96 % 96 % 98.1 [degF] 121 mm[Hg] 74 mm[Hg] Evangelina tinajero MA [facility] [place] 4 11:43:59 Date Recorded Body height Body mass index (BMI) Body weight Heart rate Oxygen saturation Oxygen saturation in Arterial blood by Pulse oximetry Body temperature Systolic blood pressure Diastolic blood pressure Provider Name and Address Organization Details Last Updated DateTime 4 165.74 cm 34.5 kg/m2 02319.8 1 g 105 /min 95 % 95 % 98 [degF] 143 mm[Hg] 83 mm[Hg] Janny Zapata MA [facility] 4 14:37:07 Social History Question Answer Notes LastModified by Organizat ion Details LastModified Time Tobacco Smoking Status Current Every Day Smoker Not Available [facility] 07/27/2020 03:36:37 Do You Have An Advance Directive? Yes [id number] Information not available 07/27/2020 What Is Your Level Of Alcohol Consumption? Occasional [id number] Information not available 07/27/2020 Is Blood Transfusion Acceptable In An Emergency? Yes [id number] Information not available 07/27/2020 What Is Your Level Of Caffeine Consumption? Moderate [id number] Information not available 07/27/2020 How Much Tobacco Do You Chew? None [id number] Information not available 07/27/2020 In The 14 Days Before Symptom Onset, Have You Had Close Contact With A Laboratory-confir med COVID-19 While That Case Was Ill? No [id number] Information not available 07/27/2020 In The 14 Days Before Symptom Onset, Have You Had Close Contact With A Person Who Is Under Investigation For COVID-19 While That Person Was Ill? No [id number] Information not available 07/27/2020 Have You Been To An Area Known To Be High Risk For COVID-19? No [id number] Information not available 07/27/2020 Are You Currently Employed? No [id number] Information not available 07/27/2020 What Type Of Diet Are You Following? DIABETIC [id number] Information not available 07/27/2020 Which Illicit Or Recreational Drugs Have You Used? No [id number] Information not available 07/27/2020 Do You Or Have You Ever Used E-cigarettes Or Vape? Never Used Electronic Cigarettes [id number] Information not available 07/27/2020 Education 8 Information n ot available 05/26/2014 Are There Any Guns Present In Your Home? No [id number] Information not available 07/27/2020 Hard Of Hearing Or Deaf In One Or Both Ears? No Information not available 05/26/2014 Legally Blind In One Or Both Eyes? No Information no t available 05/26/2014 Live Alone Or With Others? Alone [email or web address] Information not available 06/23/2019 How Often Do You Need To Have Someone Help You When You Read Instructions, Pamphlets, Or Other Written Material From Your Doctor Or Pharmacy? Never [email or web address] Information not available 08/10/2015 Have You Served In The ? No [email or web address] Information not available 10/31/2016 Have You Or Anyone In Your Household Had Any Of The Following Symptoms In The Last 14 Days: Sore Throat, Cough, Chills, Body Aches For Unknown Reasons, Shortness Of Breath For Unknown Reasons, Loss Of Smell, Loss Of Taste, Fever At Or Greater Than 100 Degrees Fahrenheit? No [email or web address] Information not available 04/13/2020 Are You Or Anyone In Your Household A Health Care Provider Or Emergency Responder? No [email or web address] Information not available 04/13/2020 To The Best Of Your Knowledge Have You Been In Close Proximity To Any Individual Who Tested Positive For COVID-19? No [email or web address] Information not available 04/13/2020 Have You Recently Traveled To A COVID-19 High Risk Area Or Gathering In The Last 10 Days? No [email or web address] Information not available 10/14/2020 What Was The Date Of Your Most Recent Tobacco Screening? 08/07/2023 [email or web address] Information not available 08/07/2023 How Many Children Do You Have? 2 [id number] Information not available 07/27/2020 What Is Your Current Pack Years? [email or web address] ars [id number] Information not available 07/27/2020 Do You Use Protection During Sex? No [id number] Information not available 07/27/2020 Seat Belts Used Routinely Yes Information not available 08/10/2015 Are You Sexually Active? Yes [id number] Information not available 07/27/2020 Smoke Alarm In Home Yes Information not available 08/10/2015 At What Age Did You Start Smoking Tobacco? 17 [id number] Information not available 07/27/2020 Are You Passively Exposed To Smoke? Yes [email or web address] Information no t available 07/15/2020 Do You Or Have You Ever Used Smokeless Tobacco? Never Used Smokeless Tobacco [id number] Information not available 07/27/2020 How Much Tobacco Do You Smoke? 1.5 PPD [id number] Information not available 07/27/2020 General Stress Level High Information not available 05/26/2014 Do You Use Any Illicit Or Recreational Drugs? No Information not available 12/13/2021 Do You Use Sunscreen Routinely? Yes [id number] Information not available 07/27/2020 Do You Or Have You Ever Used Any Other Forms Of Tobacco Or Nicotine? No Information not available 12/13/2021 Sex: Unknown Functional Status Question Answer Note LastModified by Organizat ion Details LastModified Time Are you able to walk? [email or web address] Information not available 12/13/2021 Are you able to care for yourself? No [id number] Information not available 07/27/2020 What is your exercise level? Occasional [id number] Information not available 07/27/2020 Mental Status None recorded. Family History Relationship Description Onset Age of this Age Resolved Age Notes LastModified by Organization Details LastModified Time Mother History of malignant neoplasm [email or web address] Not available 08/10 14:34:22 Maternal Grandfather Hypercholest [...] mcg/0.3 mL dose 021 completed GM Vazquez MA [facility] 06/28/2021 15:21:04 COVID-19, mRNA, LNP-S, PF, 30 mcg/0.3 mL dose 021 completed GM Vazquez [facility] 06/28/2021 15:21:23 Td (adult), 2 Lf tetanus toxoid, preservative free, adsorbed 019 completed Not Available [facility] 10/11/2019 02:21:30 Influenza, split virus, quadrivalent, PF 020 cancelled patient objection GM Richards, [facility] 07/15/2020 14:31:12 Influenza, split virus, trivalent, preservative 008 completed Not Available [facility] 04/07/2014 14:07:42 Tdap 008 completed Not Available [facility] 04/07/2014 14:07:42 Influenza, split virus, trivalent, preservative 010 completed Not Available [facility] 04/07/2014 14:07:42 Influenza, split virus, trivalent, preservative 011 completed Not Available [facility] 04/07/2014 14:07:43 Past Encounters Encounter ID Performer Location Encounter Start Date Encounter Closed Date Diagnosis/Indication Diagnosis SNOMED-CT Code Diagnosis ICD10 Code Diagnosis Note [id number] autoEComm erce [address] [facility] [place] [address] 11/19/2006 00:00:00 [id number] autoEComm erce [address] [facility] [place] [address] 12/10/2006 00:00:00 [id number] autoEComm erce [address] [facility] [place] [address] 02/22/2007 00:00:00 [id number] autoEComm erce [address] [facility] [place] [address] 08/24/2006 00:00:00 [id number] autoEComm erce [address] [facility] [place] [address] 06/22/2006 00:00:00 [id number] autoEComm erce [address] [facility] [place] [address] 06/04/2006 00:00:00 [id number] autoEComm erce [address] [facility] [place] [address] 03/25/2007 00:00:00 [id number] autoEComm erce [address] [facility] [address] [place] [address] 06/05/2007 00:00:00 [id number] autoEComm erce [address] [facility] [place] [address] 10/25/2007 00:00:00 [id number] autoEComm erce [address] [facility] [place] [address] 01/22/2008 00:00:00 [id number] autoEComm erce [address] [facility] [place] [address] 04/23/2008 00:00:00 [id number] autoEComm erce [address] [facility] [place] [address] 08/06/2008 00:00:00 [id number] autoEComm erce [address] [facility] [place] [address] 08/08/2008 00:00:00 [id number] autoEComm erce [address] [facility] [place] [address] 10/09/2008 00:00:00 [id number] autoEComm erce [address] [facility] [place] [address] 12/11/2008 00:00:00 [id number] autoEComm erce [address] [facility] [place] [address] 01/12/2009 00:00:00 [id number] autoEComm erce [address] [facility] [place] [address] 04/26/2009 00:00:00 [id number] autoEComm erce [address] [facility] [place] [address] 07/29/2009 00:00:00 [id number] autoEComm erce [address] [facility] [place] [address] 09/07/2009 00:00:00 [id number] autoEComm erce [address] [facility] [address] [place] [address] 02/09/2010 00:00:00 [id number] autoEComm erce [address] [place] [address] 03/11/2010 00:00:00 [id number] autoEComm erce [address] [facility] [address] [place] [address] 05/31/2010 00:00:00 [id number] autoEComm erce [address] [facility] [place] [address] 06/21/2010 00:00:00 [id number] autoEComm erce [address] [facility] [address] [place] [address] 08/24/2010 00:00:00 [id number] autoEComm erce [address] [facility] [place] [address] 09/12/2010 00:00:00 [id number] autoEComm erce [address] [facility] [place] [address] 11/24/2010 00:00:00 [id number] autoEComm erce [address] [facility] [place] [address] 01/20/2011 00:00:00 [id number] autoEComm erce [address] [facility] [place] [address] 03/02/2011 00:00:00 [id number] autoEComm erce [address] [facility] [address] [place] [address] 06/09/2011 00:00:00 [id number] autoEComm erce [address] [facility] [address] [place] [address] 10/03/2011 00:00:00 [id number] autoEComm erce [address] [facility] [place] [address] 02/05/2012 00:00:00 [id number] autoEComm erce [address] [facility] [address] [place] [address] 03/05/2012 00:00:00 [id number] autoEComm erce [address] [facility] [address] [place] [address] 05/01/2012 00:00:00 [id number] autoEComm erce [address] [place] [address] 07/08/2012 00:00:00 [id number] autoEComm erce [address] [facility] [address] [place] [address] 10/08/2012 00:00:00 [id number] autoEComm erce [address] [facility] [address] [place] [address] 01/09/2013 00:00:00 [id number] autoEComm erce [address] [facility] [place] [address] 07/15/2013 00:00:00 [id number] autoEComm erce [address] [facility] [place] [address] 01/05/2014 00:00:00 [id number] autoEComm erce [address] [facility] [place] [address] 11/09/2009 00:00:00 [id number] autoEComm erce [address] [facility] [place] [address] 04/09/2013 00:00:00 [id number] autoEComm erce [address] [facility] [place] [address] 11/28/2011 00:00:00 [id number] autoEComm erce [address] [facility] [place] [address] 09/15/2011 00:00:00 [id number] autoEComm erce [address] [facility] [place] [address] 07/11/2011 00:00:00 [id number] Main Office [address] [place] [address] 05/26/2014 11:43:44 05/26/2014 12:22:40 Type 2 diabetes mellitus [id number] Pure hypercholesterolemia 710633244 Schizophrenia 47841285 Tobacco de pendence syndrome 29754262 [id number] Katy Hollis Main Office [address] [address] [place] [address] 07/15/2014 13:46:49 07/15/2014 14:50:06 Allergic rhinitis 11535973 Cough 29467453 Cough, congestion , insp/ exp wheezing, hoarse voice, tachycardi a, sat 93% RA. Will treat with prednisone burst and zpak for possible bacterial infection. Also recommend patient use her inhaler 2 puffs every 4 hours as needed for cough/ wheezing. Stay well hydrated, humidifier as needed, rest, tylenol or ibuprofen as needed for pain/ fever. Nasal congestion 23997547 [id number] Katy Hollis Main Office [address] [address] [place] [address] 01/27/2015 14:32:48 01/27/2015 15:55:21 Adult health examination 874628686 Administra tion of pneumococcal vaccine 94295126 Type 2 irasema betes mellitus without complication 824402041 will increase her metformin from 500 bid to 1000 bid since her A1C is no longer at goal. Screening for malignant neoplasm of breast 143322964 Pure hypercholesterolemia 096415706 will increase her dose from 20 to 40 mg since her LDL is not at goal. Schizophrenia 13774638 o n meds, living in a custodial and followed by psych. [id number] Main Office [address] [address] [place] [address] 05/06/2015 14:03:50 05/06/2015 15:26:34 Type 2 diabetes mellitus 42735195 Pure hypercholesterolemia 169380343 will increase her dose from 20 to 40 mg since her LDL is not at goal. Allergic rhinitis 14476592 continue current [facility] [id number] Marlin Amador MD Main Office [address] [address] [place] [address] 08/10/2015 14:23:33 08/10/2015 15:23:14 Type 2 diabetes mellitus 82021126 E11.9 her A1C has been at goal in the past. She is c/w her meds. Gynecologi c examination 60248310 Z01.411 Screening for malignant neoplasm of breast 796801699 Z12.39 she has never had a mammogram because she has been anxious about going but states that she feels she is now ready. Tobacco de pendence syndrome 01767633 F17.290 we spoke about quitting. She stopped smoking in the past during each of her pregnancie s. [id number] Mikki Bertrand Main Office [address] [facility] [address] [place] [address] 11/09/2015 14:31:59 11/09/2015 15:27:25 Type 2 diabetes mellitus 28646313 E11.9 her A1C is at goal in the past. She is c/w her meds. Schizophrenia 56159016 F 20.3 on meds, living in a custodial and followed by psych. Tobacco de pendence syndrome 26539269 F17.290 we spoke about quitting. She stopped smoking in the past during each of her pregnancie s. Pure hypercholesterolemia 441391938 E78.0 we increased her dose from 20 to 40 mg since her LDL was not at goal. Recheck fasting lipid level. Chest pain 71103257 R07. 9 she is at high risk for heart disease because of her smoking and diabetes [id number] Marlin Amador MD Main Office [address] [address] [place] [address] 02/16/2016 12:45:58 02/16/2016 13:25:59 Type 2 diabetes mellitus 75196199 E11.9 her A1C is at goal in the past. She is c/w her meds. Schizophrenia 35273605 F 20.3 on meds, living in a custodial and followed by psych. [id number] Marlin Amador MD Main Office [address] [address] [place] [address] 06/30/2016 15:03:47 06/30/2016 15:45:43 Injury of finger 02217106 S69.82XA L big finger injury due to fall. XRAys to r/o fracture. Immobiliza tions with splint, ice several times daily and NSAIDs as directed for 7-10 days. referral to hand specialist . [id number] Vanessa benson Main Office [address] [address] [place] [address] 09/22/2016 15:06:27 09/22/2016 16:05:08 Cough 75645501 R05 Acute pharyngitis 030836 003 J02.9 Acute sinusitis 02956097 J01.90 Wheezing 61181244 R06.2 [id number] Marlin Amaodr MD Main Office [address] [address] [place] [address] 10/31/2016 13:40:19 10/31/2016 14:46:59 Adult health examination 701860530 Z00.00 UTD with immunizati ons. Had a PAP done Jul 2015. Type 2 irasema betes mellitus 39243974 E11.9 her A1C is a little above goal. She is c/w her meds. She will try to make some changes and we will f/u in 3 months w/o making any changes in meds right now. We will make an eye appointmen t for her. Schizophrenia 14357858 F 20.3 on meds, living in a custodial and followed by psych. Tobacco de pendence syndrome 99891719 F17.290 we spoke about quitting. She stopped smoking in the past during each of her pregnancie s. Hyperlipidemia 93634754 E78.5 We increased her med at a previous visit and will recheck her fasting lipid level. [id number] Marlin Amador MD Main Office [address] [address] [place] [address] 12/25/2016 11:34:50 12/25/2016 12:20:54 Acute conjunctivitis 98777705 H10.33 Nasal congestion 9877807 0 R09.81 [id number] Marlin Amador MD Main Office [address] [place] [address] 03/06/2017 12:39:50 03/06/2017 13:33:42 Type 2 diabetes mellitus 22109223 E11.9 Her A1C continues to rise as does her weight. We will add januvia to her regimen. Schizophrenia 01216608 F 20.3 on meds, living in a custodial and followed by psych. [id number] Marlin Amador MD Main Office [address] [address] [place] [address] 05/10/2017 15:11:49 05/10/2017 16:27:12 Sore throat 666797119 J02.9 Pneumonia 013448796 J18. 9 Wheezing 86685849 R06.2 is running low on proair - has used it past few days - will renew [id number] Marlin Amador MD Main Office [address] [place] [address] 05/24/2017 09:33:03 05/24/2017 11:17:36 Dyspnea 511841843 R06.00 much improved p pna rx pt [...] gums - it has helped before Pneumonia 789376779 J18. 9 resolved s/p rx Tobacco de pendence syndrome 44137077 F17.200 strongly encouraged tob cessation - she states she will try ankit gums again - this had worked for her in the past Cough 87100965 R05 most likely d/t prolonged tobacco exp. - see below Chronic ob structive pulmonary disease 36448951 J44.9 see above [id number] Marlin Amador MD Main Office [address] [place] [address] 06/06/2017 14:22:12 06/06/2017 16:18:04 Type 2 diabetes mellitus 38410806 E11.9 Since her A1C was rising we did a script for januvia which was not covered by her insurance. We then did a script for actos which she only filled about 2-3 weeks ago. Her A1C has come down slightly so we will not make any changes at this time. Chronic ob structive pulmonary disease 11137575 J44.9 We discussed quitting smoking to help prevent further progressio n. Since she denies SOB and exam is normal we will not start any meds but will monitor her function. [id number] Ana María crain Main Office [address] [place] [address] 07/06/2017 12:59:15 07/06/2017 14:07:16 Uncontrolled type 2 diabetes mellitus 659732500 E11.65 Total time spent teaching and coordinati [...] be set up to see notionist at [facility]. Pt. was advised to start exercise [...] m. Body mass index 30+ - obesity 888847746 Z68.34 Obesity 825753484 E66.9 [id number] Marlin Amador MD Main Office [address] [place] [address] [place] [address] 09/05/2017 12:48:05 09/05/2017 13:58:41 Uncontrolled type 2 diabetes mellitus 159007984 E11.65 Excellent improvemen t in A1C which is now less than 7.0 again (down to 6.8). She will continue with current mgmt since it is working. Dysuria 91762850 R30.0 No longer with symptoms so will send culture and will not do abx for now. She was advised to drink more fluids. Schizophrenia 03762919 F 20.3 on meds, living on her own with [facility] and followed by psych. [id number] Deja Murphy PA-C Main Office [address] [address] [place] [address] 10/23/2017 14:27:22 10/23/2017 15:48:51 Uncontrolled type 2 diabetes mellitus 109479683 E11.65 STable type II Diabetes w/o complicati ons. Continue current meds. Discussed lowering calories even further and increasing exercise activity. Test glucose 1 time per day and bring glucose log to next visit. F/u 3 m. Repeat labs. Upper resp iratory infection 57516199 J06.9 Wheezing 58851182 R06.2 Chronic ob structive pulmonary disease 83761388 J44.9 Body mass index 30+ - obesity 731971070 E66.01 Z68.35 [id number] Marlin Amador MD Main Office [address] [facility] [address] [place] [address] 02/27/2018 13:02:09 02/27/2018 14:22:54 Adult health examination 180644003 Z00.00 UTD with immunizati ons. Had a PAP done Jul 2015 and will return for a PAP Genital warts 260504800 A63.0 Will try topical treatment and if persists will Uncontroll ed type 2 diabetes mellitus 188919921 E11.65 A1C continues to be at goal below 7.0 and is currently at 6.3 . She will continue with current mgmt since it is working. [id number] Marlin Amador MD Main Office [address] [address] [place] [address] 06/06/2018 12:57:48 06/06/2018 13:58:46 Uncontrolled type 2 diabetes mellitus 783444201 E11.65 A1C continues to be at goal below 7.0 and is currently at 6.6. She will continue with current mgmt since it is working. Schizophrenia 03696268 F 20.3 on meds, living on her own with supervisio n and followed by psych. [id number] Marlin Amador MD Main Office [address] [address] [place] [address] 08/22/2018 13:25:23 08/22/2018 14:17:54 Acute pharyngitis 430036782 J02.9 Cough 97612664 R05 She will use robitussin prn. [id number] Marlin Amador MD Main Office [address] [facility] [address] [place] [address] 03/20/2019 15:00:36 03/20/2019 15:56:26 Uncontrolled type 2 diabetes mellitus 529365734 E11.65 A1C continues to be at goal below 7.0 and is currently at 6.7. She will continue with current mgmt since it is working. Schizophrenia 61770962 F 20.3 on meds, living on her own with supervis n and followed by psych. Chronic ob structive pulmonary disease 34682882 J44.9 Continues to smoke Requires a tetanus booster 902031741 Z23 [id number] Marlin Amador MD Main Office [address] [address] 06/23/2019 14:34:34 06/23/2019 15:59:51 Adult health examination 609569235 Z00.00 UTD with immunizati ons. Had a PAP done Jul 2015 and will return for a PAP Type 2 irasema betes mellitus without complication 612455798 E11.9 Body mass index 30+ - obesity 975361904 E66.01 Z68.36 Schizophrenia 33515489 F 20.3 on meds, [place] and followed by psych. [id number] Marlin Amador MD Main Office [address] [address] 04/13/2020 12:37:21 04/13/2020 13:38:09 Uncontrolled type 2 diabetes mellitus 192292717 E11.65 A1C continues to be at goal below 7.0 and is currently at 6.7. She will continue with current mgmt since it is working. Lateral ep icondylitis of right humerus 0809162193 28989 M77.11 Chronic ob structive pulmonary disease 51958255 J44.9 Continues to smoke Schizophrenia 16044902 F 20.3 on meds, living [place] own [place] and followed by psych. Tobacco de pendence syndrome 17437766 F17.290 we spoke about quitting. She stopped smoking in the past during each of her pregnancie s. [id number] Marlin Amador MD Main Office [address] [address] 07/15/2020 14:10:04 07/15/2020 15:21:15 Adult health examination 860194658 Z00.00 UTD with immunizati ons but refuses a flu vaccine. Had a PAP done Jul 2015 and will return for a PAP Needs infl uenza immunization 883320351 Z23 Uncontroll ed type 2 diabetes mellitus 679584609 E11.65 Her diabetes is no longer uncontroll ed; her A1C today is 7.0. She was encouraged to stay with the same mgmt. Schizophrenia 64125787 F 20.3 on meds, living on her own with supervis n and followed by psych. Tobacco de pendence syndrome 01431607 F17.290 we spoke about quitting. She stopped smoking in the past during each of her pregnancie s. Body mass index 30+ - obesity 425424409 E66.01 [id number] Marlin Amador MD Main Office [address] [facility] [address] [place] [address] 10/14/2020 13:41:53 10/14/2020 14:42:06 Uncontrolled type 2 diabetes mellitus 949337389 E11.65 Her A1C increased form 7.0 to 7.7. We will increase her actos from 15 to 30 mg and see her back in 3 months. Hyperlipidemia 13486901 E78.5 We increased her med at a previous visit and LDL is now at goal. Schizophrenia 40281798 F 20.3 on meds, living on her own with [facility] and followed by psych. Chronic ob structive pulmonary disease 17328461 J44.9 Continues to smoke [id number] Marlin Amador MD Main Office [address] [address] 02/07/2021 14:23:01 02/07/2021 15:22:47 Uncontrolled type 2 diabetes mellitus 710827619 E11.65 Her A1C continues to increase despite being c/w her meds. Will increase her actos from 30 to 45 mg and she will continue metformin trajenta. Chronic ob structive pulmonary disease 93583507 J44.9 Continues to smoke Hyperlipidemia 76401558 E78.5 LDL at goal. Will check fasting lipid level. Schizophrenia 80687303 F 20.3 on meds, living on [place] own [place] and followed by psych. [id number] Marlin Amador MD [facility] [address] [facility] [address] [place] [address] 03/17/2021 13:57:16 03/18/2021 14:44:54 Uncontrolled type 2 diabetes mellitus 111807189 E11.65 She has been having SE's since [...] in 2 months. Tobacco de pendence syndrome 27063558 F17.290 we spoke about quitting. She stopped smoking in the past during each of her pregnancie s. Anxiety 83834627 F41.9 It is doubtful that this is secondary to her actos. She will speak to her mental health provider about this. [id number] Marlin Amador MD Main Office [address] [place] [address] 06/28/2021 14:51:15 06/28/2021 15:56:27 Uncontrolled type 2 diabetes mellitus 582326838 E11.65 She was not able to tolerate the actos because of ankle swelling, nausea and bloating. She stopped this a couple of months ago and her SE's resolved. Unfortunat sheila her A1C increased from 8.1 to 9.3. We will add another po med and she understand s that she may need meds that require injections in the future. Schizophrenia 40213787 F 20.3 on meds, living on her own with [facility] and followed by psych. Hyperlipidemia 43730975 E78.5 LDL at goal. Will check fasting lipid level next appointmen tMaricruz [id number] Marlin Amador MD Main Office [address] [place] [address] 08/16/2021 13:29:39 08/16/2021 14:38:24 Tinea cruris 454144593 B35.6 Candidiasis of vagina 72 632997 B37.3 [id number] Marlin Amador MD Main Office [address] [place] [address] 12/13/2021 12:41:16 12/13/2021 13:49:23 Adult health examination 938784398 Z00.00 UTD with immunizati ons. Had a PAP done Jul 2015 and will return for a PAP. Does not want to do one today. Uncontroll ed type 2 diabetes mellitus 620097882 E11.65 She was not able to tolerate the actos because of ankle swelling, nausea and bloating. She stopped this a couple of months ago and her SE's resolved. Unfortunat sheila her A1C increased from 8.1 to 9.3. We will add another po med and she understand s that she may need meds that require injections in the future. Chronic ob structive pulmonary disease 28507626 J44.9 Continues to smoke Hyperlipidemia 99452283 E78.5 LDL at goal. Will check fasting lipid level. Schizophrenia 43258962 F 20.3 on meds, living on her own with supervisio n and followed by psych. Body mass index 30+ - obesity 119175153 E66.01 Z68.33 [id number] Marlin Amador MD Main Office [address] [facility] [address] [place] [address] 08/29/2022 13:05:29 08/29/2022 14:30:53 Uncontrolled type 2 diabetes mellitus 942630971 E11.65 She was not able to tolerate the actos because of ankle swelling, nausea and bloating. She stopped this and her SE's resolved. . We added jardiance and tradjenta and her A1C came down from 9.3 to 7.6. She will work on lifestyle changes to bring this down more. Allergic rhinitis 626727 04 J30.9 continue current mgmt Schizophrenia 12669527 F 20.3 on meds, living on her own with supervis n and followed by psych. [id number] Marlin Amador MD Main Office [address] [facility] [address] [place] [address] 04/24/2023 14:19:20 04/24/2023 15:26:54 Uncontrolled type 2 diabetes mellitus 208868686 E11.65 She was not able to tolerate the actos because of ankle swelling, nausea and bloating. She stopped this and her SE's resolved. . We added jardiance and tradjenta and her A1C came down from 9.3 to 7.6. She checks her sugars and says that they are generally in the low 100's. Schizophrenia 12372404 F 20.3 on meds, living on her own with supervisio n and followed by psych. Allergic rhinitis 110020 04 J30.9 continue current mgmt Chronic ob structive pulmonary disease 02097221 J44.9 Continues to smoke [id number] Marlin Amador MD Main Office [address] [facility] [address] [place] [address] 08/07/2023 13:23:20 08/07/2023 14:27:58 Uncontrolled type 2 diabetes mellitus 106127348 E11.65 She was not able to tolerate the actos because of ankle swelling, nausea and bloating. She stopped this and her SE's resolved. . We added jardiance and tradjenta and her A1C came down from 9.3 to 7.2. She checks her sugars and says that they are generally in the low 100's. Adult heal th examination 681233011 Z00.00 UTD with immunizati ons. Had a PAP done Jul 2015 and will return for a PAP. Does not want to do one today. Screening for malignant neoplasm of colon 552631744 Z12.11 Tobacco de pendence syndrome 09998044 F17.290 we spoke about quitting. She stopped smoking in the past during each of her pregnancie s. Chronic ob structive pulmonary disease 74092682 J44.9 Continues to smoke Hyperlipidemia 15146757 E78.5 LDL at goal. Will check fasting lipid level. Schizophrenia 45605602 F 20.3 on meds, living on her own with [facility] [place] and followed by psych. Has some mild depression which is followed by her psych provider. [id number] MARIE Pfeiffer Main Office [address] [facility] [address] [place] [address] 11/23/2023 11:21:25 11/23/2023 12:21:38 Uncontrolled type 2 diabetes mellitus 206202717 E11.65 A1C increased from 7.2 to 7.3, Would like to continue on metformin and tradjenta instead of adding med, will stay consistent with exercise and trying to eat better. Does exercises in 3 sets to get through during the day. Tradjenta refilled. Schizophrenia 93724118 F 20.3 on meds, living on her own with supervis n and followed by psych. Allergic rhinitis 843049 04 J30.9 continue current mgmt Chronic ob structive pulmonary disease 05564438 J44.9 Continues to smoke [id number] Marlin Amador MD Main Office [address] [facility] [address] [facility] [place] [address] 02/27/2024 14:25:32 02/27/2024 15:27:48 Uncontrolled type 2 diabetes mellitus 686099902 E11.65 She was not able to tolerate the Actos because of ankle swelling, nausea and bloating. She stopped this and her SE's resolved. . We added jardiance and tradjenta and her A1C came down from 9.3 to 7.2. But the jardiance is no longer on formulary. She also stopped the tradjenta for unclear reasons but will restart it. Fatigue 63148748 R53.83 Hyperlipidemia 01130869 E78.5 Last LDL at goal. Will check fasting lipid level. Schizophrenia 28738353 F 20.3 on meds, living on her [...] 1 [place] [employer] Aura Hood [id number] Aura Hill Sana 08/29/2022 2 [place] [facility] Aura Hood [id number] Aura Hill Sana 04/24/2023 1 [place] [employer] Aura Mcgrathzander [id number] Aura Hill Sana 04/24/2023 2 [place] [facility] Aura Hood [id number] Aura Hill Sana 08/07/2023 1 [place] [employer] Aura Mcgrathzander [id number] Aura Hood 08/07/2023 2 [place] CHARLI Hood [id number] Aura Hood 11/23/2023 1 [place] [facility] Aura Hood [id number] Aura Hood 11/23/2023 2 [place] [facility] Aura Hood [id number] Aura Hood 02/27/2024 1 [place] [facility] Aura Hood [id number] Aura Hood 02/27/2024 2 [place]LI Hood [id number] Arua Hood Notes Date Note Type Note Provider [...] followed by psych. Marlin Amador MD [address] [address], [place], [address], [facility] 08/29/2022 17:16:25 04/24/2023 text/html Diabetes F/URepo rted [...] a problem recently. Marlin Amador MD [address], [address] 04/24/2023 17:14:52 08/07/2023 text/html Generic HPI TemplateReported bypatient.Notes:She is followed by psych and is also by the [facility]. She lives on her own with [...] falls while walking Marlin Amador MD [address] [address], [place], [address], [facility] [place] 08/09/2023 07:47:33 11/23/2023 text/html Generic HPI TemplateReported [...] with just 2 meds. MARIE Pfeiffer [address] [facility] [address], [place], [address], [facility] [place] 11/23/2023 12:21:58 02/27/2024 text/html Diabetes F/URepo rted [...] been a problem recently. Marlin Amador MD [address] [address], [place], [address], [facility] 02/27/2024 18:37:36 OBGyn Episode No OBEpisode recorded.
== END 2024-12-23 14:55 | disposition home or self-care (01) ==
LOC: HO.LABR 14:54
PROVIDERS: PCP Internal Medicine; Visit Provider Psychiatry & Neurology Psychiatry
DX: Z79.899 Other long term (current) drug therapy (principal)
CPT/HCPCS: 36415; 85025

== ENCOUNTER 2025-01-13 15:52 | Inpatient (IN) | payer MEDICARE, MEDICAID, SELFPAY ==
[2025-01-13] VITALS (9 sets, daily range): BP systolic 128–153; BP diastolic 47–70; PULSE 87–106; RESP 20–23; TEMP 37.1–37.6; O2SAT 92–95; BMI 35.7; BMI 36.2
--- NOTE | ~2025-01-13 | XR_ITS ---
CLINICAL HISTORY: hypoxic --- Additional Notes or Special Instructions: blood work ([id number] 1 view chest x-ray Comparison: None Findings: 8 mm nodular density of the left upper lung zone. 0.4 x 1.3 cm opacity of the left mid lung zone. 1.1 cm nodular density of the right lower lung zone. Heart size is normal. No acute fracture. IMPRESSION: There are nodular densities of the lungs. Correlation with CT chest findings as indicated. This document has been electronically signed by: Colin Enriquez MD on 01/13/2025 17:23:44
--- NOTE | ~2025-01-13 | CT_ITS ---
CLINICAL HISTORY: severe hypoxia on Room air, tachycardic CT angiography chest with contrast. 3D Postprocessing. Comparison: None Findings: The heart is normal size. RV/LV ratio is normal. Unremarkable thoracic aorta and great vessels. No aneurysm. Linear hypodensity crossing a left lower lobe segmental pulmonary artery series 8, image 52 and series 7, image 69. Prominent hilar and mediastinal lymph nodes: Subcarinal lymph node 1.3 x 1.9 cm. Small bilateral pleural effusion and bibasilar opacities. Patchy opacities of the left lung. Multiple small nodules: 4 mm in the right upper lobe series 6, image 32; 4 mm in the right upper lobe image 55; 3.6 mm in the right lower lobe image 82. 3 x 3.6 cm lesion in the area of right adrenal gland/right lobe of the liver series 7, image 129. The bones are intact. IMPRESSION: No definite evidence of acute pulmonary embolism. Linear hypodensity crossing a left lower lobe segmental pulmonary artery is likely to be artifactual. Clinical correlation is recommended. Patchy opacities of the left lung concerning for pneumonia. Small bilateral pleural effusion. Multiple pulmonary nodules. CT chest follow-up as indicated. Indeterminate lesion in the area of right adrenal gland/right lobe of the liver is partially visualized. Fleischner Society 2017 Guidelines for incidentally detected indeterminate nodules in persons 35 years of age or older. Single Solid Nodules: 5 mm or smaller nodules need no follow-up in low risk, and [address] follow-up is optional in high risk patients. 6-8 mm nodules have optional [address] follow-up in low risk, and 6-[address] follow-up followed by 18-[address] follow-up if no change in high risk patients. 9 mm or larger nodules should consider CT, PET/CT, or biopsy at 3 months regardless of patient risk. Multiple Solid Nodules: 5 mm or smaller nodules need no follow-up in low risk, and [address] follow-up is optional in high risk patients. 6-8 mm nodules need 3-[address] follow-up followed by an optional 18-[address] follow-up regardless of patient risk. 9 mm or larger nodules should consider 3-[address] follow-up. For low risk 18-24 month follow-up is optional, whereas for high risk it is needed. Single Ground Glass Nodules: 5 mm or smaller nodules need no followup 6 mm and larger nodules need CT at 6-12 months to confirm persistence, then CT every 2 years until 5 years Single Subsolid Nodules: 5 mm or smaller nodules need no followup 6 mm and larger nodules need CT at 3-6 months to confirm persistence. If no change and solid component /T/lt;6 mm, then CT every year until 5 years Multiple Ground Glass or Subsolid Nodules: 5 mm or smaller nodules need CT at 3-6 months. If stable, optional CT at 2 and 4 years. 6 mm or larger nodules need CT at 3-6 months. Subsequent management based on most suspicious nodule This document has been electronically signed by: Colin Enriquez MD on 01/13/2025 19:28:26
--- NOTE | 2025-01-13 16:22 | ECG_ITS ---
Test Reason : DYSPNEA Blood Pressure : */* mmHG Vent. Rate : 100 BPM Atrial Rate : 100 BPM P-R Int : 158 ms QRS Dur : 62 ms QT Int : 332 ms P-R-T Axes : 72 62 62 degrees QTcB Int : 428 ms Normal sinus rhythm Possible Left atrial enlargement Septal infarct , age undetermined Abnormal ECG When compared with ECG of 21-May-2015 15:17, No significant changes seen Referred By: Lyn Cotto Electronically Signed By: ONI RAYO
--- NOTE | 2025-01-13 16:25 | ED_ITS ---
HPI - SOB/Dyspnea General Chief Complaint: Dyspnea Stated Complaint: minor diff breathing Time Seen by Provider: 01/13/25 16:14 Source: patient and EMS Mode of arrival: EMS Limitations: other History of Present Illness ED Provider: Dr. Lyn Cotto HPI Narrative: Patient comes to the emergency room via ambulance. Patient is poor historian and unable to give good history. Patient is here with a [facility] worker who does not know much about the patient's medical history either. Seems that patient has been having weakness for about 1 week and increased work of breathing. According to EMS, patient's oxygen saturation was 87% on room air when they got to the patient's residence. They gave her a DuoNeb and her oxygen increased to 95-96%. Patient is not oxygen dependent. When patient arrived to the emergency room patient's oxygen saturation dropped to 68% on room air. Patient's oxygen improved with 12 L on an OxyMask. When I ask questions to the patient, patient tries her best to answer but is unable to give any meaningful information. Related Data Allergies Allergy/AdvReac Type Severity Reaction Status Date / Time haloperidol [From Haldol] AdvReac Difficulty Verified 01/13/25 16:13 Breathing Review of Systems 2 Review of Systems: Yes Other PMFSH Social History Social History Smoked in Last 30 Days: Yes Use of substances other than those prescribed or required for medical reasons: No Advance Directives: No Advance Directives Information Provided: No Patient : No Physical Exam 2 Vital Signs: Vital Signs: Last Vital Signs Temp 99.6 F 01/13/25 16:06 Pulse 89 01/13/25 18:00 Resp 20 01/13/25 18:00 BP 128/62 01/13/25 18:00 Pulse Ox 94 01/13/25 18:00 O2 Del Method Oxymask 01/13/25 18:00 O2 Flow Rate 15 01/13/25 18:00 Oxygen Flow Rate 10 01/13/25 16:06 BMI result Body Mass Index 35.7 Const: Other: Appearance: Alert. Oriented X3. No acute distress. Eyes: Pupils equal, round and reactive to light. ENT: Pharynx normal. Neck: Normal inspection. Neck supple. No lymph nodes noted. No crepitus CVS: Normal heart rate and rhythm. Pulses normal. Normal S1 and S2 Respiratory: Patient is speaking in full sentences, tachypneic, very decreased breath sounds bilaterally, no wheezing Abdomen: Soft and nontender. No rigidity. No distention. Skin: Skin warm and dry. Normal skin color. Normal skin turgor. Extremities: No lower extremity edema. No Lacerations. No Rash Neuro: Oriented X 3. No motor deficit. No sensory deficit. Moving all extremities. No slurred speech. CN 2 through 12 grossly intact Psych: calm, cooperative, patient states that she is feeling emotional Course Course Course Narrative: Informed by the patient's tech that the patient's oxygen saturation suddenly dropped to the 60s when they attempted to wean the patient off oxygen. Patient has poor historian. [facility] worker at bedside, reports that the patient has been having URI symptoms for about a week. But does not know much about the patient either. On 12 L, patient's oxygen saturation is in the low 90s. Any attempt to remove the OxyMask, patient rapidly desaturates. Patient is not oxygen dependent. All of patient's labs and imaging pending. Empirically, patient being treated with IV fluids based on ideal weight of 50 kg, patient is obese, IV antibiotics including azithromycin and ceftriaxone, CT scan to rule out pulmonary embolism is pending Medications Administered Discontinued Medications Generic Name Dose Route Start Last Admin Trade Name Freq PRN Reason Stop Dose Admin Ceftriaxone Sodium 1 gm 01/13/25 16:35 01/13/25 16:50 Ceftriaxone Sodium 1 Gm Vial IVPUSH 01/13/25 16:36 1 gm ONCE ONE Administration Sodium Chloride 2,000 mls @ 999 mls/hr 01/13/25 16:35 01/13/25 18:30 Ns IVCONT 01/13/25 18:35 Infused .Q2H1M ONE Infusion Azithromycin 500 mg/ Sodium 250 mls @ 125 mls/hr 01/13/25 16:35 01/13/25 18:30 Chloride IV 01/13/25 18:34 Infused ONCE ONE Infusion Iohexol 65 ml 01/13/25 18:03 01/13/25 18:04 Iohexol 350 Mg/Ml 75 Ml Infus..Btl IV 01/13/25 18:04 65 ml ONCE ONE Administration Medical Decision Making Medical Decision Making [facility] Narrative: My interpretation of labs: Patient's white blood cell count 8.4, no significant abnormality in patient's hematology, D-dimer 425, patient's blood gases show normal pH, pCO2 of 76 with a bicarb of 46, likely all chronic. No significant abnormality in patient's chemistry, lactic acid 0.8, serology negative for influenza RSV and COVID CT angio of the chest does not show any acute pulmonary embolisms. The patchy opacities of the left lung concerning for pneumonia, small bilateral pleural effusions and multiple pulmonary nodules As mentioned above, patient was treated with IV fluids, antibiotics. Patient does not tolerate being off of oxygen, Currently on 15 L saturating in the low to mid 90s. Patient being switched to high-flow I discussed the patient with Dr. Moyer from the Medicine team, patient being admitted Differential Diagnosis Differential Diagnoses: The differential diagnosis associated with the presentation includes (Pneumonia, pulmonary embolism, CHF, viral illness) Admission/Observation Consideration of admission/observation: Escalation of care including admission/observation considered Consult Healthcare Provider Management of the patient was discussed with: Hospitalist Lab Data MDM Lab Attestation statement: I reviewed the patient's lab results. 01/13/25 16:35 01/13/25 16:35 Labs: Lab Results 01/13/25 01/13/25 01/13/25 Range/Units 16:34 16:35 16:41 WBC 8.4 (4.8-10.8) X10*3/uL RBC 4.53 (4.20-5.50) X10*6/uL Hgb 13.3 (12.0-16.0) g/dl Hct 42.3 (37.0-47.0) % MCV 93.4 (80.0-98.0) fL MCH 29.4 (27.0-33.0) pg MCHC 31.4 (31.0-35.0) g/dl RDW 14.1 (11.0-16.0) % Plt Count 234 (160-400) X10*3/uL MPV 9.4 (9.4-12.3) fL Immature Gran % (Auto) 1.5 H (0.0-0.4) % Neut % (Auto) 64.4 (45-73) % Lymph % (Auto) 21.7 (20-40) % Foard % (Auto) 11.3 H (2-11) % Eos % (Auto) 0.4 (0-4) % Baso % (Auto) 0.7 (0-2) % Lymph # (Auto) 1.8 (1.2-4.9) X10*3/uL Foard # (Auto) 1.0 (0.1-1.2) X10*3/uL Eos # (Auto) 0.0 (0.0-0.4) X10*3/uL Baso # (Auto) 0.1 (0.0-0.2) X10*3/uL Abs Immat Gran (auto) 0.13 H (0.00-0.03) X10*3/uL Absolute Neuts (auto) 5.4 (2.0-8.3) x10*3/uL Absolute Nucleated RBC 0.030 H (0.0-0.012) X10*3/uL Nucleated RBC % (auto) 0.4 H (0.0-0.2) /100WBC D-Dimer High Sensitivty 425 NG/ML VBG pH 7.38 (7.32-7.43) VBG pCO2 76 mmHg VBG pO2 75 mmHg VBG HCO3 46 H (22-26) mmol/L VBG O2 Saturation 95.0 % VBG Base Excess 16.7 mmol/L Sodium 139 (135-145) mmol/L Potassium 4.0 (3.3-5.1) mmol/L Chloride 94 L (96-108) mmol/L Carbon Dioxide 35 H (22-29) mmol/L Anion Gap 14 (12-20) BUN 6 L (9-16) mg/dL Creatinine 0.57 (0.5-1.4) mg/dL Estim Creat Clear Calc 130.0 Estimated GFR > 60 Random Glucose 236 H (60-115) mg/dL Lactic Acid 0.8 (0.5-2.0) mmol/L Calcium 9.0 D (8.4-10.2) mg/dL Total Bilirubin 0.4 (0.0-1.0) mg/dL AST 14 (5-31) U/L ALT 35 H (0-31) U/L Alkaline Phosphatase 78 (39-117) U/L Troponin I High Sens 6.8 (<3.5-17.0) ng/L B-Natriuretic Peptide 38 (<100) pg/mL Total Protein 6.8 (6.5-8.0) g/dL Albumin 3.7 (3.5-5.0) g/dL Influenza Type A (PCR) NEGATIVE (Negative) Influenza Type B (PCR) NEGATIVE (Negative) RSV RNA Qual (PCR) NEGATIVE (Negative) SARS-CoV-2 RNA (RT-PCR) NEGATIVE (Negative) Independent Interpretation I performed an independent interpretation of an: CT Scan Radiology Impression Discussion of test interpretation with radiology: I have reviewed the radiologist's reading. Radiologist Impression: The heart is normal size. RV/LV ratio is normal. Unremarkable thoracic aorta and great vessels. No aneurysm. Linear hypodensity crossing a left lower lobe segmental pulmonary artery series 8, image 52 and series 7, image 69. Prominent hilar and mediastinal lymph nodes: Subcarinal lymph node 1.3 x 1.9 cm. Small bilateral pleural effusion and bibasilar opacities. Patchy opacities of the left lung. Multiple small nodules: 4 mm in the right upper lobe series 6, image 32; 4 mm in the right upper lobe image 55; 3.6 mm in the right lower lobe image 82. 3 x 3.6 cm lesion in the area of right adrenal gland/right lobe of the liver series 7, image 129. The bones are intact. IMPRESSION: No definite evidence of acute pulmonary embolism. Linear hypodensity crossing a left lower lobe segmental pulmonary artery is likely to be artifactual. Clinical correlation is recommended. Patchy opacities of the left lung concerning for pneumonia. Small bilateral pleural effusion. Multiple pulmonary nodules. CT chest follow-up as indicated. Indeterminate lesion in the area of right adrenal gland/right lobe of the liver is partially visualized. Independent Historian Clinical information obtained from an independent historian. History obtained from or confirmed by: Other Critical Care Time Critical Care Time Critical Care Time: Yes Total Critical Care Time: 75 Attestation: I have personally provided critical care time. Time includes review of lab data, radiology results, discussion with consultants, and monitoring for potential decompensation. Intervention performed as documented. Discharge Plan Discharge Clinical Impression: Pneumonia, Hypoxic Patient Disposition: Admitted As Inpatient Print Language: [place]
[2025-01-13] MEDS: 0.9 % Sodium Chloride 2,000 ML 999 ML IVCONT (16:37)
[2025-01-13 16:40] LABS: MANUAL DIFF FLAG NO
[2025-01-13 16:43] LABS: Basophils Absolute Auto 0.1 X10*3/uL (0.0-0.2); Basophils Percent Auto 0.7 % (0-2); Eosinophils Percent Auto 0.4 % (0-4); Hematocrit 42.3 % (37.0-47.0); Hemoglobin 13.3 g/dl (12.0-16.0); Imm Gran Abs Auto 0.13 X10*3/uL (0.00-0.03); Imm Gran Pct Auto 1.5 % (0.0-0.4); Lymphocytes Absolute Auto 1.8 X10*3/uL (1.2-4.9); Lymphocytes Percent Auto 21.7 % (20-40); Mean Corpuscular HGB Conc 31.4 g/dl (31.0-35.0); Mean Corpuscular Hemoglobin 29.4 pg (27.0-33.0); Mean Corpuscular Volume 93.4 fL (80.0-98.0); Mean Platelet Volume 9.4 fL (9.4-12.3); Monocytes Percent Auto 11.3 % (2-11); NRBC Pct Auto 0.4 /100WBC (0.0-0.2); Neutrophils Absolute Auto 5.4 x10*3/uL (2.0-8.3); Neutrophils Percent Auto 64.4 % (45-73); Platelet Count 234 X10*3/uL (160-400); Red Blood Count 4.53 X10*6/uL (4.20-5.50); Red Cell Distribution Width 14.1 % (11.0-16.0); White Blood Count 8.4 X10*3/uL (4.8-10.8)
[2025-01-13 16:44] LABS: Venous Blood Gas Refer to POC result
[2025-01-13 16:45] LABS: VBG Base Excess 16.7 mmol/L; VBG HCO3 46 mmol/L (22-26); VBG pCO2 76 mmHg; VBG pH 7.38 (7.32-7.43); VBG pO2 75 mmHg
[2025-01-13] MEDS: cefTRIAXone sodium 1 GM VIAL IVPUSH (16:50)
[2025-01-13 16:51] LABS: D Dimer High Sensitivity 425 NG/ML
[2025-01-13] MEDS: Azithromycin 500 MG in 0.9 % Sodium Chloride 250 ML 125 MG IV (16:54)
[2025-01-13 16:57] LABS: Lactic Acid 0.8 mmol/L (0.5-2.0)
[2025-01-13 17:04] LABS: B Type Natriuretic Peptide 38 pg/mL (<100)
[2025-01-13 17:06] LABS: Troponin-I High Sensitivity 6.8 ng/L (<3.5-17.0)
[2025-01-13 17:08] LABS: Albumin Level 3.7 g/dL (3.5-5.0); Anion Gap 14 (12-20); Bilirubin Total 0.4 mg/dL (0.0-1.0); Blood Urea Nitrogen 6 mg/dL (9-16); Carbon Dioxide 35 mmol/L (22-29); Chloride 94 mmol/L (96-108); Estimated Glomerular Filt Rate > 60; Glucose Random 236 mg/dL (60-115); Sodium 139 mmol/L (135-145); Total Protein 6.8 g/dL (6.5-8.0)
[2025-01-13 17:26] LABS: Influenza A PCR NEGATIVE (Negative); Influenza B PCR NEGATIVE (Negative); Resp Syncy Virus RNA Qual PCR NEGATIVE (Negative); SARS COV2 PCR INHOUSE NEGATIVE (Negative)
[2025-01-13 17:26] LABS: Alanine Aminotransferase 35 U/L (0-31); Alkaline Phosphatase 78 U/L (39-117); Aspartate Amino Transferase 14 U/L (5-31)
[2025-01-13] MEDS: iohexoL 350 MG/ML 75 ML INFUS..BTL 65 ML IV (18:04)
--- OUTSIDE RECORDS SUMMARY | 2025-01-13 19:02 | XMS_ITS | Data Portability ---
Author Organization 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 Plan of Treatment Reminders Order Date Submit Date Provider Last Modified By Organization Details Last Modified Time Details Appointments Follow Up DM 30 2024 01:00P Sergio dean MD Not available Not available Not available Lab hemogl obin A1C, finger stick 2023 024 [email or web address] In-Office Order, Internal Use Only DO Not Attach Compendium DO Not Attach Compendium, Do Not Delete/merge, [id number] 02/27/2024 15:14:28 microa lbumin , urine 2023 024 OMAR [facility] (Centralized Electronic Ordering - All Locations), Patient Can Go To The Location Of Their Choice, [id number] 02/28/2024 12:06:20 LDL, direct , serum 2023 024 OMAR [facility], [address], [place], [address], 02/28/2024 12:06:19 HDL choles terol, serum 2023 024 [email or web address] [facility] (Centralized Electronic Ordering - All Locations), Patient Can Go To The Location Of Their Choice, [id number] 09/25/2024 09:12:13 CBC w/ auto diff 2023 024 OMAR [facility], [address], [place], [address], 02/28/2024 12:06:16 BMP, serum or plasma 2023 024 OMAR [facility], [address], [place], [address], 02/28/2024 12:06:17 TSH, ultra- sensit meri, serum 2023 024 OMAR [facility], [address], [place], [address], 02/28/2024 12:06:21 hemogl obin A1C, finger stick 2022 023 [email or web address] In-Office Order, Internal Use Only DO Not Attach Compendium DO Not Attach Compendium, Do Not Delete/merge, [id number] 08/07/2023 14:11:57 microa lbumin , urine 2022 023 [email or web address] [facility], [address], [address], [place], [address], 08/28/2023 07:40:42 CMP, serum or plasma 2022 023 [email or web address] [facility], [address], [address], [place], [address], 03/04/2024 08:06:34 lipid panel, serum 2022 023 OMAR [facility], [address], [address], [place], [address], 02/28/2024 12:06:18 CBC w/ auto diff 2022 023 [email or web address] [facility], [address], [address], [place], [address], 08/28/2023 07:40:42 HbA1c (hemog lobin A1c), blood 2022 023 [email or web address] [facility], [address], [address], [place], [address], 11/20/2023 10:48:02 microa lbumin , urine 2022 023 [email or web address] [facility], [address], [address], [place], [address], 06/05/2023 11:57:56 CMP, serum or plasma 2022 023 [email or web address] [facility], [address], [address], [place], [address], 11/20/2023 10:48:02 lipid panel, serum 2022 023 OMAR [facility], [address], [address], [place], [address], 04/24/2023 15:18:50 CBC w/ auto diff 2022 023 [email or web address] [facility], [address], [address], [place], [address], 06/05/2023 11:57:56 hemogl obin A1C, finger stick 2021 022 [email or web address] In-Office Order, Internal Use Only DO Not Attach Compendium DO Not Attach Compendium, Do Not Delete/merge, [id number] 08/29/2022 14:18:57 Referral diabet ic ophtha lmolog y referr al - Type 2 diabet es requir ing regula r eye exams. 2022 023 [email or web address] [facility], [address], [place], [address], 02/04/2024 08:46:58 gastro entero logist referr al - Needs colon cancer screen ing 2022 023 [email or web address] Not available 08/07/2023 15:13:27 Procedures colono scopy screen ing (PROC) 2022 023 [email or web address] In-Office Order, Internal Use Only DO Not Attach Compendium DO Not Attach Compendium, Do Not Delete/merge, [id number] 08/07/2023 15:13:03 Surgeries None record ed. Imaging None record ed. Medication Orders Tradje nta 5 mg tablet 2023 024 [facility]1940, [address] [place] [address], [id number], 02/27/2024 15:14:32 Tradje nta 5 mg tablet [email or web address] [facility] #00631, [address] [place] [address], [id number], 02/27/2024 14:39:34 Vitami n C 250 mg tablet 2021 022 [facility] #73263, [address] [place] [address], [id number], 08/29/2022 14:22:47 metfor min 1,000 mg tablet 2021 022 [facility] #89682, [address] [place] [address], [id number], 08/29/2022 13:55:17 Jardia nce 25 mg tablet 2021 022 [facility] #38712, [address] [place] [address], [id number], 10/19/2023 09:05:02 linagl iptin 5 mg tablet [email or web address] [facility] #90710, [address] [place] [address], [id number], 11/23/2023 12:01:02 Patient TargetsNo targets recorded. Patient Instructions Encounter Date Encounter Id Patient Instructions Last Modified By Organization Details Last Modified Time 08/29/2022 [id number] allergies: care instructions [email or web address] Not available 08/29/2022 14:22:36 managing your allergies: care instructions [email or web address] Not available 08/29/2022 14:22:36 schizophrenia: care instructions acennerazzo Not available 08/29/2022 17:03:18 type 2 diabetes: care instructions acennerazzo Not available 08/29/2022 14:18:57 04/24/2023 [id number] allergies: care instructions acennerazzo Not available 04/24/2023 16:24:27 managing your allergies: care instructions acennerazzo Not available 04/24/2023 16:24:27 schizophrenia: care instructions acennerazzo Not available 04/24/2023 16:24:27 type 2 diabetes: care instructions acennerazzo Not available 04/24/2023 16:24:27 chronic obstructive pulmonary disease (COPD): care instructions acennerazzo Not available 04/24/2023 15:18:47 learning about copd and how to prevent lung infections acennerazzo Not available 04/24/2023 15:18:47 08/07/2023 [id number] deciding about using medicines to quit smoking [...] cancer acennerazzo Not available 08/07/2023 14:15:06 11/23/2023 [id number] allergies: care instructions [email or web address] Not available 11/23/2023 [...] concerns [email or web address] Not available 11/23/2023 12:04:13 02/27/2024 [id number] schizophrenia: care instructions acennerazzo Not available 02/27/2024 18:37:24 type 2 diabetes: care instructions acennerazzo Not available 02/27/2024 15:14:26 Reason for Referral Diabetic Ophthalmology Refer ral for Uncontrolled type 2 diabetes mellitus Type 2 diabetes requiring regular eye exams. 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 Referral for Screening for malignant neoplasm of colon Needs colon cancer screening Referring Physician: Marlin Amador [facility], Encounter Date: 08/07/2023 Results Created Date Observation Date Name Description Value Unit Range Abnormal Flag Note LastModifiedBy Organization Detail LastModifiedTime 08/29/20 22 08/29/2022 hemog lobin A1C, finge rstic k A1C 7.6 % 4-6 abnormal Not Available In-Office Order Internal Use Only DO Not Attach Compendium DO Not Attach Compendium, Do Not Delete/merge, [id number] 08/29/2022 13:24:28 08/07/20 23 08/07/2023 hemog lobin A1C, finge rstic k A1C 7.2 % 4-6 Not Available In-Office Order Internal Use Only DO Not Attach Compendium DO Not Attach Compendium, Do Not Delete/merge, [id number] 08/07/2023 13:25:15 11/23/19 24 11/23/2023 hemog lobin A1C, lj lee k A1C 7.3 % 4-6 abnormal Not Available In-Office Order Internal Use Only DO Not Attach Compendium DO Not Attach Compendium, Do Not Delete/merge, [id number] 11/23/2023 12:17:33 02/27/20 24 02/28/2024 CBC WITH DIFFE RENTI AL/PL ATELE T WBC 9.5 x10e3 /uL 3.4-10 .8 Not Available [facility] ([facility]) [address] [facility], [place], [address], 02/28/2024 12:06:16 02/27/20 24 02/28/2024 CBC WITH DIFFE RENTI AL/PL ATELE T RBC 5.03 x10e6 /uL 3.77-5 .28 Not Available [facility] ([facility]) [address] [place], [address], 02/28/2024 12:06:16 02/27/20 24 02/28/2024 CBC WITH DIFFE RENTI AL/PL ATELE T hemoglobin 15.3 g/dL 11.1-1 5.9 Not Available [facility] ([facility]) [address] [place], [address], 02/28/2024 12:06:16 02/27/20 24 02/28/2024 CBC WITH DIFFE RENTI AL/PL ATELE T hematocrit 46.4 % 34.0-4 6.6 Not Available [facility] ([facility]) [address] [place], [address], 02/28/2024 12:06:16 02/27/20 24 02/28/2024 CBC WITH DIFFE RENTI AL/PL ATELE T MCV 92 fL 79-97 Not Available [facility] ([facility]) [address] [facility], [place], [address], 02/28/2024 12:06:16 02/27/20 24 02/28/2024 CBC WITH DIFFE RENTI AL/PL ATELE T MCH 30.4 pg 26.6-3 3.0 Not Available [facility] ([facility]) [address] [facility], [place], [address], 02/28/2024 12:06:16 02/27/20 24 02/28/2024 CBC WITH DIFFE RENTI AL/PL ATELE T MCHC 33.0 g/dL 31.5-3 5.7 Not Available [facility] ([facility]) [address] [facility], [place], [address], 02/28/2024 12:06:16 02/27/20 24 02/28/2024 CBC WITH DIFFE RENTI AL/PL ATELE T RDW 13.5 % 11.7-1 5.4 Not Available [facility] ([facility]) [address] [facility], [place], [address], 02/28/2024 12:06:16 02/27/20 24 02/28/2024 CBC WITH DIFFE RENTI AL/PL ATELE T platelets 222 x10e3 /uL 150-45 0 Not Available [facility] ([facility]) [address] [facility], [place], [address], 02/28/2024 12:06:16 02/27/20 24 02/28/2024 CBC WITH DIFFE RENTI AL/PL ATELE T neutrophils 47 % not estab. Not Available [facility] ([facility]) [address] [facility], [place], [address], 02/28/2024 12:06:16 02/27/20 24 02/28/2024 CBC WITH DIFFE RENTI AL/PL ATELE T lymphs 44 % not estab. Not Available [facility] ([facility]) [address] [facility], [place], [address], 02/28/2024 12:06:16 02/27/20 24 02/28/2024 CBC WITH DIFFE RENTI AL/PL ATELE T monocytes 8 % not estab. Not Available [facility] ([facility]) [address] [facility], [place], [address], 02/28/2024 12:06:16 02/27/20 24 02/28/2024 CBC WITH DIFFE RENTI AL/PL ATELE T eos 1 % not estab. Not Available [facility] ([facility]) [address] [facility], [place], [address], 02/28/2024 12:06:16 02/27/20 24 02/28/2024 CBC WITH DIFFE RENTI AL/PL ATELE T basos 0 % not estab. Not Available [facility] ([facility]) [address] [place], [address], 02/28/2024 12:06:16 02/27/20 24 02/28/2024 CBC WITH DIFFE RENTI AL/PL ATELE T immature cells CYLINDER BLOCK HOLE RELINER Not Available [facility] ([facility]) [address] [place], [address], 02/28/2024 12:06:16 02/27/20 24 02/28/2024 CBC WITH DIFFE RENTI AL/PL ATELE T neutrophils (absolute) 4.4 x10e3 /uL 1.4-7. 0 Not Available [facility] ([facility]) [address] [place], [address], 02/28/2024 12:06:16 02/27/20 24 02/28/2024 CBC WITH DIFFE RENTI AL/PL ATELE T lymphs (absolute) 4.2 x10e3 /uL 0.7-3. 1 above high normal Not Available [facility] ([facility]) [address] [place], [address], 02/28/2024 12:06:16 02/27/20 24 02/28/2024 CBC WITH DIFFE RENTI AL/PL ATELE T monocytes(ab solute) 0.7 x10e3 /uL 0.1-0. 9 Not Available [facility] ([facility]) [address] [facility], [place], [address], 02/28/2024 12:06:16 02/27/20 24 02/28/2024 CBC WITH DIFFE RENTI AL/PL ATELE T eos (absolute) 0.1 x10e3 /uL 0.0-0. 4 Not Available [facility] ([facility]) [address] [facility], [place], [address], 02/28/2024 12:06:16 02/27/20 24 02/28/2024 CBC WITH DIFFE RENTI AL/PL ATELE T baso (absolute) 0.0 x10e3 /uL 0.0-0. 2 Not Available [facility] ([facility]) [address] [facility], [place], [address], 02/28/2024 12:06:16 02/27/20 24 02/28/2024 CBC WITH DIFFE RENTI AL/PL ATELE T immature granulocytes 0 % not estab. Not Available [facility] ([facility]) [address] [facility], [place], [address], 02/28/2024 12:06:16 02/27/20 24 02/28/2024 CBC WITH DIFFE RENTI AL/PL ATELE T immature grans (abs) 0.0 x10e3 /uL 0.0-0. 1 Not Available [facility] ([facility]) [address] [facility], [place], [address], 02/28/2024 12:06:16 02/27/20 24 02/28/2024 CBC WITH DIFFE RENTI AL/PL ATELE T NRBC CYLINDER BLOCK HOLE RELINER Not Available [facility] ([facility]) [address] [facility], [place], [address], 02/28/2024 12:06:16 02/27/20 24 02/28/2024 CBC WITH DIFFE JAZMYN AL/LAYTON Montiel hematology comments: CYLINDER BLOCK HOLE RELINER Not Available [facility] ([facility]) [address] [facility], [place], [address], 02/28/2024 12:06:16 02/27/20 24 02/28/2024 BASIC METAB OLIC PANEL (8) glucose 151 mg/dL 70-99 above high normal Not Available [facility] ([facility]) [address] [facility] [place], [address], 02/28/2024 12:06:17 02/27/20 24 02/28/2024 BASIC METAB OLIC PANEL (8) BUN 6 mg/dL 6-24 Not Available [facility] ([facility]) [address] [place], [address], 02/28/2024 12:06:17 02/27/20 24 02/28/2024 BASIC METAB OLIC PANEL (8) creatinine 0.51 mg/dL 0.57-1 .00 below low normal Not Available [facility] ([facility]) [address] [place], [address], 02/28/2024 12:06:17 02/27/20 24 02/28/2024 BASIC METAB OLIC PANEL (8) eGFR 114 mL/mi n/1.7 3 >59 Not Available [facility] ([facility]) [address] [place], [address], 02/28/2024 12:06:17 02/27/20 24 02/28/2024 BASIC METAB OLIC PANEL (8) BUN/creatini ne ratio 12 9-23 Not Available [facility] ([facility]) [address] [place], [address], 02/28/2024 12:06:17 02/27/20 24 02/28/2024 BASIC METAB OLIC PANEL (8) sodium 141 mmol/ L 134-14 4 Not Available [facility] ([facility]) [address] [facility] [place], [address], 02/28/2024 12:06:17 02/27/20 24 02/28/2024 BASIC METAB OLIC PANEL (8) potassium 4.6 mmol/ L 3.5-5. 2 Not Available [facility] ([facility]) [address] [facility] [place], [address], 02/28/2024 12:06:17 02/27/20 24 02/28/2024 BASIC METAB OLIC PANEL (8) chloride 98 mmol/ L 96-106 Not Available [facility] ([facility]) [address] [facility] [place], [address], 02/28/2024 12:06:17 02/27/20 24 02/28/2024 BASIC METAB OLIC PANEL (8) carbon dioxide, total 31 mmol/ L 20-29 above high normal Not Available [facility] ([facility]) [address] [place], [address], 02/28/2024 12:06:17 02/27/20 24 02/28/2024 BASIC METAB OLIC PANEL (8) calcium 9.8 mg/dL 8.7-10 .2 Not Available [facility] ([facility]) [address] [place], [address], 02/28/2024 12:06:17 02/27/20 24 02/28/2024 LIPID PANEL cholesterol, total 178 mg/dL 100-19 9 Not Available [facility] ([facility]) [address] [place], [address], 02/28/2024 12:06:18 02/27/20 24 02/28/2024 LIPID PANEL triglyceride s 116 mg/dL 0-149 Not Available [facility] ([facility]) [address] [place], [address], 02/28/2024 12:06:18 02/27/20 24 02/28/2024 LIPID PANEL HDL cholesterol 96 mg/dL >39 Not Available [facility] ([facility]) [address] [place], [address], 02/28/2024 12:06:18 02/27/20 24 02/28/2024 LIPID PANEL VLDL cholesterol luke 20 mg/dL 5-40 Not Available [facility] ([facility]) [address] [place], [address], 02/28/2024 12:06:18 02/27/20 24 02/28/2024 LIPID PANEL LDL chol calc (nih) 62 mg/dL 0-99 Not Available [facility] ([facility]) [address] [place], [address], 02/28/2024 12:06:18 02/27/20 24 02/28/2024 LIPID PANEL comment: CYLINDER BLOCK HOLE RELINER Not Available [facility] ([facility]) [address] [place], [address], 02/28/2024 12:06:18 02/27/20 24 02/28/2024 LDL PETE STERO L (DIRE CT) LDL chol. (direct) 65 mg/dL 0-99 Not Available [facility] ([facility]) [address] [place], [address], 02/28/2024 12:06:19 02/27/20 24 02/28/2024 ALBUM IN, RANDO M URINE albumin, urine 13.2 ug/mL not estab. Not Available [facility] ([facility]) [address] [place], [address], 02/28/2024 12:06:20 02/27/20 24 02/28/2024 TSH RFX ON ABNOR MAL TO FREE T4 TSH 1.110 uIU/m L 0.450- 4.500 Not Available [facility] ([facility]) [address] [place], [address], 02/28/2024 12:06:20 02/27/20 24 02/27/2024 hemog lobin A1Clj A1C 8.2 % 4-6 high Not Available In-Office Order Internal Use Only DO Not Attach Compendium DO Not Attach Compendium, Do Not Delete/merge, [id number] 02/27/2024 14:30:40 Result Notes None recorded. Problems Name Problem SNOMED Code Status Onset Date Resolution Date Notes Provider Name and Address Organization Details Recorded Time Abdomina l pain 67250875 Completed 201104/14/2014 IMPRESSI ON: PT WITH INTERMIT [...] SOONER PRN.; RECORDED 05/01/20 12 9:48AM BY KATY CATALAN I ANNOTATI ON/ADDEN DUM Not Available [facility] 4 14:17:44 Acute sinusiti s [id number] Completed 200804/14/2014 RECORDED 01/13/20 09 10:58AM BY SAMUEL CELIS MA, ANNOTATI ON/ADDEN DUM Not Available [facility] 4 14:17:44 Allergic rhinitis 97413736 Active Marlin Amador MD [address] [facility] [address], [place], [address] , [facility] 5 17:55:35 Screenin g for malignan t neoplasm of breast Completed 201304/14/2014 RECORDED 12/24/19 14 8:19AM BY KATY CATALAN I ANNOTATI ON/ADDEN DUM Not Available [facility] 4 14:17:45 Cough [id number] Completed 200704/14/2014 DATE: 08/06/20 08; IMPRESSI ON: W/ WHEEZING .; RECORDED 05/01/20 12 9:48AM BY SIXTO GALVEZATI ON/ADDEN DUM Xi Abarca MA [facility] 7 09:53:54 Tobacco dependen ce syndrome 96879925 Completed 201304/14/2014 RECORDED 12/24/19 14 8:19AM BY SIXTO GALVEZATI ON/ADDEN DUM Not Available [facility] 4 14:17:45 Type 2 diabetes mellitus without complica tion 226579342 Completed 201204/14/2014 IMPRESSI ON: NO CHANGES IN MGMT; CHECK LABS AND ADJUST IF NEEDED.; RECORDED 07/15/20 13 2:53PM BY AINSLEY MONSIVAIS MA, ANTHONY ON/ADDEN DUM Deja Murphy PA-C [address], [place], [address] , [facility] 7 13:54:58 Type 2 diabetes mellitus without complica tion 624485743 Completed 07/06/2017 Deja Murphy PA-C [address], [place], [address] , [facility] 7 13:54:58 Diarrhea 27511820 Completed 201104/14/2014 IMPRESSI ON: THIS SEEMS LIKE IBS GIVEN HER SX AND THE AMOUNT OF TIME SHE HAS HAD SX. DOUBT INFECTIO US BECAUSE OF THE DURATION . WILL CHECK STOOL STUDIES NEXT VISIT IF STILL SYMPTOMA TIC.; RECORDED 07/08/20 12 11:19AM BY ANTHONY GALVEZ ON/ADDEN DUM Not Available [facility] 4 14:17:45 Dizzines s and giddines s 819041995 Completed 201104/14/2014 RECORDED 05/01/20 12 9:48AM BY SIXTO GALVEZATI ON/ADDEN DUM Not Available [facility] 4 14:17:45 Dysmenor seng 394519181 Completed 201104/14/2014 RECORDED 05/01/20 12 9:48AM BY SIXTO GALVEZATI ON/ADDEN DUM Not Available [facility] 4 14:17:45 Respirat ory finding 825181649 Completed 201104/14/2014 RECORDED 05/01/20 12 9:48AM BY KATY CATALAN I ANNOTATI ON/ADDEN DUM Not Available [facility] 4 14:17:45 Blood chemistr y outside referenc e range 833358678 Completed 201104/14/2014 RECORDED 05/01/20 12 9:48AM BY SITXO GALVEZATI ON/ADDEN DUM Not Available [facility] 4 14:17:45 Malaise and fatigue 802612834 Completed 05/24/2017 Xi rodriguez, [facility] 7 09:53:48 Influenz a vaccine needed [id number] 06 Completed 201004/14/2014 DATE: 06/09/20 11; RECORDED 05/01/20 12 9:48AM BY SIXTO GALVEZATI ON/ADDEN DUM Not Available [facility] 4 14:17:45 Disorder of hair AND/OR hair follicle Completed 201104/14/2014 RECORDED 05/01/20 12 9:48AM BY SIXTO GALVEZATI ON/ADDEN DUM Not Available [facility] 4 14:17:45 Adult health examinat ion Completed 201304/14/2014 RECORDED 12/24/19 14 8:19AM BY SIXTO GALVEZATI ON/ADDEN DUM Not Available [facility] 4 14:17:45 Well child 432292390 Completed 201104/14/2014 RECORDED 05/01/20 12 9:48AM BY SIXTO GALVEZATI ON/ADDEN DUM Not Available [facility] 4 14:17:45 Pure hypercho lesterol emia 165067657 Completed 10/31/2016 Marlin Amador MD [address] [facility] [address], [place], [address] , [facility] 7 14:03:55 Irritabl e bowel syndrome 26372571 Completed 201104/14/2014 RECORDED 07/08/20 12 11:19AM BY SIXTO GALVEZATI ON/ADDEN DUM Not Available [facility] 4 14:17:46 Primary malignan t neoplasm of uterine cervix 127490805 Completed 201204/14/2014 AGE 17, LASER REMOVAL; RECORDED 10/08/19 13 11:20AM BY SIXTO GALVEZATI ON/ADDEN DUM Not Available [facility] 4 14:17:46 Administ ration of bacteria l and viral vaccine Completed 200704/14/2014 RECORDED 08/06/20 08 2:05PM BY GM SEAMAN, OFFICE VISIT Not Available [facility] 4 14:17:46 Onychomy cosis due to dermatop hyte 477826265 Completed 201104/14/2014 RECORDED 05/01/20 12 9:48AM BY SIXTO GALVEZATI ON/ADDEN DUM Not Available [facility] 4 14:17:46 Knee pain Completed 201104/14/2014 RECORDED 05/01/20 12 9:48AM BY SIXTO GALVEZATI ON/ADDEN DUM Not Available [facility] 4 14:17:46 Immuniza tion refused Completed 201304/14/2014 RECORDED 12/24/19 14 8:19AM BY SIXTO GALVEZATI ON/ADDEN DUM Not Available [facility] 4 14:17:46 Posterio r rhinorrh ea [id number] Completed 201104/14/2014 RECORDED 05/01/20 12 9:48AM BY SIXTO GALVEZATI ON/ADDEN DUM Not Available [facility] 4 14:17:46 Eruption [id number] Completed 200804/14/2014 RECORDED 01/13/20 09 10:58AM BY SAMUEL CELIS MA, ANNOTATI ON/ADDEN DUM Not Available [facility] 4 14:17:46 Procedur e refused Completed 201104/14/2014 RECORDED 05/01/20 12 9:48AM BY SIXTO GALVEZATI ON/ADDEN DUM Not Available [facility] 4 14:17:46 Speciali zed medical examinat ion Completed 201104/14/2014 RECORDED 05/01/20 12 9:48AM BY SIXTO GALVEZATI ON/ADDEN DUM Not Available [facility] 4 14:17:46 Schizoph yanique 22718451 Active Stable on meds. Followed by psych Marlin Amador MD [address] [facility] [address], [place], [address] , [facility] 6 13:25:02 Screenin g for malignan t neoplasm of cervix Completed 201104/14/2014 RECORDED 05/01/20 12 9:48AM BY SIXTO GALVEZATI ON/ADDEN DUM Not Available [facility] 4 14:17:46 Chronic sinusiti s 76069247 Completed 201104/14/2014 RECORDED 05/01/20 12 9:48AM BY SIXTO GALVEZATI ON/ADDEN DUM Not Available [facility] 4 14:17:46 Tobacco dependen ce syndrome 74872188 Active Marlin Amador MD [address] [facility] [address], [place], [address] , [facility] 6 15:15:56 Trichomo nal vulvovag initis 36429596 Completed 201004/14/2014 DATE: 03/02/20 11; RECORDED 05/01/20 12 9:48AM BY SIXTO GALVEZATI ON/ADDEN DUM Not Available [facility] 4 14:17:46 Acute upper respirat ory infectio n 38473784 Completed 201204/14/2014 RECORDED 10/08/19 13 11:24AM BY KATY SCHULTZK I, ANNOTATI ON/ADDEN DUM Not Available [facility] 4 14:17:47 Urinary incontin ence [id number] Completed 200704/14/2014 RESOLVED DATE: 04/23/20 08; RECORDED 04/23/20 08 10:15AM BY MARLIN SILVA MD, ANNOTATI ON/ADDEN DUM Not Available [facility] 4 14:17:47 Wheezing 38296866 Completed 201204/14/2014 IMPRESSI ON: NO H/O ASTHMA. SHE WILL CALL IF SHE NEEDS TO USE THE PROAIR DAILY.; RECORDED 10/08/19 13 11:24AM BY KATY CATALAN I ANNOTATI ON/ADDEN DUM Not Available [facility] 4 14:17:47 Abdomina l pain 06347635 Completed 201105/04/2014 IMPRESSI ON: PT WITH INTERMIT [...] SOONER PRN.; RECORDED 05/01/20 12 9:48AM BY KATY CATALAN I ANNOTATI ON/ADDEN DUM Not Available [facility] 4 06:38:55 Acute sinusiti s 80773768 Completed 200805/04/2014 RECORDED 01/13/20 09 10:58AM BY SAMUEL CELIS MA, ANNOTATI ON/ADDEN DUM Not Available [facility] 4 06:38:55 Screenin g for malignan t neoplasm of breast Completed 201305/04/2014 RECORDED 12/24/19 14 8:19AM BY KATY CATALAN I ANNOTATI ON/ADDEN DUM Not Available [facility] 4 06:38:55 Cough 21842832 Completed 200705/04/2014 DATE: 08/06/20 08; IMPRESSI ON: W/ WHEEZING .; RECORDED 05/01/20 12 9:48AM BY SIXTO GALVEZATI ON/ADDEN DUM Xi rodriguez, [facility] 7 09:53:54 Tobacco dependen ce syndrome 27165854 Completed 201305/04/2014 RECORDED 12/24/19 14 8:19AM BY SIXTO GALVEZATI ON/ADDEN DUM Not Available [facility] 4 06:38:55 Type 2 diabetes mellitus without complica tion 529850419 Completed 201205/04/2014 IMPRESSI ON: NO CHANGES IN MGMT; CHECK LABS AND ADJUST IF NEEDED.; RECORDED 07/15/20 13 2:53PM BY AINSLEY MONSIVAIS MA, ANTHONY ON/ADDEN DUM Deja Murphy PA-C [address] [address], [place], [address] , [facility] 7 13:54:58 Diarrhea 45307842 Completed 201105/04/2014 IMPRESSI ON: THIS SEEMS LIKE IBS GIVEN HER SX AND THE AMOUNT OF TIME SHE HAS HAD SX. DOUBT INFECTIO US BECAUSE OF THE DURATION . WILL CHECK STOOL STUDIES NEXT VISIT IF STILL SYMPTOMA TIC.; RECORDED 07/08/20 12 11:19AM BY ANTHONY GALVEZ ON/ADDEN DUM Not Available [facility] 4 06:38:55 Dizzines s and giddines s 510421969 Completed 201105/04/2014 RECORDED 05/01/20 12 9:48AM BY ANTHONY GALVEZ ON/ADDEN DUM Not Available [facility] 4 06:38:55 Dysmenor seng 151874639 Completed 201105/04/2014 RECORDED 05/01/20 12 9:48AM BY ANTHONY GALVEZ ON/ADDEN DUM Not Available [facility] 4 06:38:55 Respirat ory finding 792264022 Completed 201105/04/2014 RECORDED 05/01/20 12 9:48AM BY KATY SCHULTZK I, ANNOTATI ON/ADDEN DUM Not Available [facility] 4 06:38:55 Blood chemistr y outside referenc e range 027022026 Completed 201105/04/2014 RECORDED 05/01/20 12 9:48AM BY KATY CATALAN I ANNOTATI ON/ADDEN DUM Not Available [facility] 4 06:38:55 Influenz a vaccine needed [id number] 06 Completed 201005/04/2014 DATE: 06/09/20 11; RECORDED 05/01/20 12 9:48AM BY SIXTO GALVEZATI ON/ADDEN DUM Not Available [facility] 4 06:38:55 Disorder of hair AND/OR hair follicle Completed 201105/04/2014 RECORDED 05/01/20 12 9:48AM BY SIXTO GALVEZATI ON/ADDEN DUM Not Available [facility] 4 06:38:55 Adult health examinat ion Completed 201305/04/2014 RECORDED 12/24/19 14 8:19AM BY SIXTO GALVEZATI ON/ADDEN DUM Not Available [facility] 4 06:38:55 Well child 785414035 Completed 201105/04/2014 RECORDED 05/01/20 12 9:48AM BY SIXTO GALVEZATI ON/ADDEN DUM Not Available [facility] 4 06:38:55 Irritabl e bowel syndrome 08382551 Completed 201105/04/2014 RECORDED 07/08/20 12 11:19AM BY SIXTO GALVEZATI ON/ADDEN DUM Not Available [facility] 4 06:38:56 Laborato ry procedur e performe d 514219720 Completed 201305/26/2014 RECORDED 04/02/20 14 2:51PM BY ANTA RIVERS, LAB REQ Marlin Amador MD [address] [facility] [address], [place], [address] , [facility] 4 12:00:02 Primary malignan t neoplasm of uterine cervix 205275198 Completed 201205/04/2014 AGE 17, LASER REMOVAL; RECORDED 10/08/19 13 11:20AM BY SIXTO GALVEZATI ON/ADDEN DUM Not Available [facility] 4 06:38:56 Administ ration of bacteria l and viral vaccine Completed 200705/04/2014 RECORDED 08/06/20 08 2:05PM BY GM SEAMAN, OFFICE VISIT Not Available [facility] 4 06:38:56 Onychomy cosis due to dermatop hyte 140968590 Completed 201105/04/2014 RECORDED 05/01/20 12 9:48AM BY SIXTO GALVEZATI ON/ADDEN DUM Not Available [facility] 4 06:38:56 Knee pain Completed 201105/04/2014 RECORDED 05/01/20 12 9:48AM BY ANTHONY GALVEZ ON/ADDEN DUM Not Available [facility] 4 06:38:56 Immuniza tion refused Completed 201305/04/2014 RECORDED 12/24/19 14 8:19AM BY ANTHONY GALVEZ ON/ADDEN DUM Not Available [facility] 4 06:38:56 Posterio r rhinorrh ea 69486916 Completed 201105/04/2014 RECORDED 05/01/20 12 9:48AM BY ANTHONY GALVEZ ON/ADDEN DUM Not Available [facility] 4 06:38:56 Eruption 952096799 Completed 200805/04/2014 RECORDED 01/13/20 09 10:58AM BY SAMUEL CELIS MA, ANTHONY ON/ADDEN DUM Not Available [facility] 4 06:38:56 Procedur e refused Completed 201105/04/2014 RECORDED 05/01/20 12 9:48AM BY SIXTO GALVEZATI ON/ADDEN DUM Not Available [facility] 4 06:38:56 Speciali obey medical examinat ion Completed 201105/04/2014 RECORDED 05/01/20 12 9:48AM BY SIXTO GALVEZATI ON/ADDEN DUM Not Available [facility] 4 06:38:56 Screenin g for malignan t neoplasm of cervix Completed 201105/04/2014 RECORDED 05/01/20 12 9:48AM BY SIXTO GALVEZATI ON/ADDEN DUM Not Available [facility] 4 06:38:56 Chronic sinusiti s 01479894 Completed 201105/04/2014 RECORDED 05/01/20 12 9:48AM BY SIXTO GALVEZATI ON/ADDEN DUM Not Available [facility] 4 06:38:56 Trichomo nal vulvovag initis 02544490 Completed 201005/04/2014 DATE: 03/02/20 11; RECORDED 05/01/20 12 9:48AM BY SIXTO GALVEZATI ON/ADDEN DUM Not Available [facility] 4 06:38:56 Acute upper respirat ory infectio n 31237481 Completed 201205/04/2014 RECORDED 10/08/19 13 11:24AM BY SIXTO GALVEZATI ON/ADDEN DUM Not Available [facility] 4 06:38:56 Urinary incontin ence 716755658 Completed 200705/04/2014 RESOLVED DATE: 04/23/20 08; RECORDED 04/23/20 08 10:15AM BY MARLIN SILVA MD, ANNOTATI ON/ADDEN DUM Not Available [facility] 4 06:38:56 Wheezing 47328489 Completed 201205/04/2014 IMPRESSI ON: NO H/O ASTHMA. SHE WILL CALL IF SHE NEEDS TO USE THE PROAIR DAILY.; RECORDED 10/08/19 13 11:24AM BY KATY CATALAN I ANNOTATI ON/ADDEN DUM Not Available [facility] 4 06:38:56 Type 2 diabetes mellitus 77902590 Completed 01/28/2015 Deja Murphy PA-C [address] [facility] [address], [place], [address] , [facility] 7 13:55:02 Cough 64594594 Completed 05/24/2017 Xi rodriguez, [facility] 7 09:53:54 Nasal congesti on 51156731 Completed 05/24/2017 Xi rodriguez, [facility] 7 09:53:58 Type 2 diabetes mellitus 00461311 Completed 07/06/2017 Deja Murphy PA-C [address], [place], [address] , [facility] 7 13:55:02 Gynecolo gic examinat ion Active Marlin Amador MD [address], [place], [address] , [facility] 5 06:59:59 Chest pain 46208068 Completed 05/24/2017 Xi rodriguez, [facility] 7 09:53:51 Chronic obstruct meri pulmonar y disease 73908823 Active 2016 Rubén Murphy PA-C [address], [place], [address] , [facility] 7 13:22:11 Uncontro lled type 2 diabetes mellitus 164875734 Active 2016 Deja Murphy PA-C [address], [place], [address] , [facility] 7 13:55:08 Hyperlip idemia 60539720 Active 2020 Marlin Amador MD [address] [facility] [address], [place], [address] , [facility] 1 19:28:56 Problem Notes None recorded. Procedures Surgical History Date Name Laterality Status Provider Name and Address Organization Details Recorded Time 3 Diabetic Foot Exam (Monofilament) completed Marlin Amador MD [address] [address], [place], [address], [facility] 04/24/2023 15:00:38 2 Diabetic Foot Exam (Monofilament) completed Marlin Amador MD [address] [address], [place], [address], [facility] 12/13/2021 14:39:14 1 Diabetic Foot Exam (Monofilament) completed Marlin Amador MD [address] [address], [place], [address], [facility] 02/07/2021 15:13:59 1 Diabetic Foot Exam (Monofilament) completed Marlin Amador MD [address], [address], [facility] 10/15/2020 13:38:53 0 Diabetic Foot Exam (Monofilament) completed Marlin Amador MD [address] [address], [place], [address], [facility] 04/14/2020 17:17:01 9 Diabetic Foot Exam (Monofilament) completed Marlin Amador MD [address], [address], [facility] 03/20/2019 15:31:43 8 Diabetic Foot Exam (Monofilament) completed Marlin Amador MD [address], [address], [facility] 02/28/2018 07:11:43 6 Most Recent Mammogram completed Magda Marcus [facility] 01/07/2016 08:42:52 6 Mammogram Screening completed Magda Marcus [facility] 01/07/2016 08:42:52 5 Date of Last Pap Smear completed Cinthia Smith [facility] 03/22/2017 16:18:21 4 Nebulizer tx completed MARIE Pfeiffer [address] [facility] [address], [place], [address], [facility] 07/15/2014 14:31:36 Other completed Samuel boone MA [facility] 07/15/2014 14:13:40 Imaging Results None recorded. Procedure Notes None recorded. Medical Equipment None Reported. Allergies Allergen ID Allergen Name Allergen Category Reaction Reaction Severity Criticality Documentation Date Start Date Code Code System Note Provider Name and Address Organization Details Recorded Time 51365 Actos medicatio n edema moderate Not available 06/29/2021 81238 2 RxNorm Marlin dean MD [address] [facility] [address], [place], [address], [facility] 1 09:25:21 Medications Name Sig Start Date [...] 9:12AM BY MARLIN SILVA MD, ANTHONY ON/LYRIC SNELL; Not Available Not Available Not Available sulfameth [...] 11/28/19 12 8:43AM BY CHUYITA FOSTER PA-C, ISAATI ON AUTO-ASHELY CTIVATIO N; Not Available Not Available Not Available lorazepam 0.5 mg tablet Take 1 tablet by mouth twice a day as needed 03/17 completed Not Available Not Available Not Available nicotine (polacril ex) 4 mg gum 30 MINUTES NEEDED 02/02 completed RECORDED 02/03/20 10 2:24PM BY ANTHONY TUCKER ON/ADD DUM; Not Available Not Available Not Available [...] tablet TAKE 1 TABLET BY MOUTH DAILY 2024 active Not Available Not Available Not Avai lable clozapine 25 mg tablet Take two (2) [...] completed Seems like it was replaced by [facility] Not Available Not Available Not Available Naprosyn [...] RECORDED 03/19/20 12 5:08PM BY ANTHONY TUCKER ON/ADDDEEPIKA DUM; Not Available Not Available Not Available [...] Not Available Not Available Not Available FreeStyle Buckhead kit DAILY 07/03 completed RECORDED 07/15/20 13 [...] Updated DateTime 2 165.74 cm 33.7 kg/m2 88619.8 4 g 98 /min 93 % 93 % 98.24 [degF] 114 mm[Hg] 74 mm[Hg] Masha Howard [facility] 2 13:30:52 Date Recorded Body height Body mass index (BMI) Body weight Heart rate Oxygen saturation Oxygen saturation in Arterial blood by Pulse oximetry Body temperature Systolic blood pressure Diastolic blood pressure Provider Name and Address Organization Details Last Updated DateTime 3 165.74 cm 32.8 kg/m2 33680.3 9 g 103 /min 95 % 95 % 97.6 [degF] 121 mm[Hg] 72 mm[Hg] Masha Howard [facility] 3 14:36:54 Date Recorded Body height Body mass index (BMI) Body weight Heart rate Oxygen saturation Oxygen saturation in Arterial blood by Pulse oximetry Body temperature Systolic blood pressure Diastolic blood pressure Provider Name and Address Organization Details Last Updated DateTime 3 165.74 cm 33 kg/m2 53540.4 7 g 91 /min 96 % 96 % 98.2 [degF] 140 mm[Hg] 78 mm[Hg] Janny Zapata [facility] 3 13:32:43 Date Recorded Body height Body mass index (BMI) Body weight Heart rate Oxygen saturation Oxygen saturation in Arterial blood by Pulse oximetry Body temperature Systolic blood pressure Diastolic blood pressure Provider Name and Address Organization Details Last Updated DateTime 4 165.74 cm 33.4 kg/m2 65216.6 6 g 84 /min 96 % 96 % 98.1 [degF] 121 mm[Hg] 74 mm[Hg] Evangelina tinajero MA [facility] 4 11:43:59 Date Recorded Body height Body mass index (BMI) Body weight Heart rate Oxygen saturation Oxygen saturation in Arterial blood by Pulse oximetry Body temperature Systolic blood pressure Diastolic blood pressure Provider Name and Address Organization Details Last Updated DateTime 4 165.74 cm 34.5 kg/m2 45784.8 1 g 105 /min 95 % 95 % 98 [degF] 143 mm[Hg] 83 mm[Hg] Janny Zapata MA [facility] 4 14:37:07 Social History Question Answer Notes LastModified by Organizat ion Details LastModified Time Tobacco Smoking Status Current Every Day Smoker Not Available [facility] 07/27/2020 03:36:37 Do You Have An Advance Directive? Yes [id number] Information not available 07/27/2020 What Is Your Level Of Alcohol Consumption? Occasional [id number] Information not available 07/27/2020 Is Blood Transfusion Acceptable In An Emergency? Yes [id number] Information not available 07/27/2020 What Is Your Level Of Caffeine Consumption? Moderate [id number] Information not available 07/27/2020 How Much Tobacco Do You Chew? None [id number] Information not available 07/27/2020 In The 14 Days Before Symptom Onset, Have You Had Close Contact With A Laboratory-confir med COVID-19 While That Case Was Ill? No [id number] Information not available 07/27/2020 In The 14 Days Before Symptom Onset, Have You Had Close Contact With A Person Who Is Under Investigation For COVID-19 While That Person Was Ill? No [id number] Information not available 07/27/2020 Have You Been To An Area Known To Be High Risk For COVID-19? No [id number] Information not available 07/27/2020 Are You Currently Employed? No [id number] Information not available 07/27/2020 What Type Of Diet Are You Following? DIABETIC [id number] Information not available 07/27/2020 Which Illicit Or Recreational Drugs Have You Used? No [id number] Information not available 07/27/2020 Do You Or Have You Ever Used E-cigarettes Or Vape? Never Used Electronic Cigarettes [id number] Information not available 07/27/2020 Education 8 Information n ot available 05/26/2014 Are There Any Guns Present In Your Home? No [id number] Information not available 07/27/2020 Hard Of Hearing [...] Or Greater Than 100 Degrees Fahrenheit? No [email or web address] Information not available 04/13/2020 Are You Or Anyone In Your Household A Health Care Provider Or Emergency Responder? No [email or web address] Information not available 04/13/2020 To The Best Of Your Knowledge Have You Been In Close Proximity To Any Individual Who Tested Positive For COVID-19? No [email or web address] Information not available 04/13/2020 Have You Recently Traveled To A COVID-19 High Risk Area Or Gathering In The Last 10 Days? No [email or web address] Information not available 10/14/2020 What Was The Date Of Your Most Recent Tobacco Screening? 08/07/2023 [email or web address] Information not available 08/07/2023 How Many Children Do You Have? 2 [id number] Information not available 07/27/2020 What Is Your Current Pack Years? [email or web address] ars [id number] Information not available 07/27/2020 Do You Use Protection During Sex? No [id number] Information not available 07/27/2020 Seat Belts Used Routinely Yes Information not available 08/10/2015 Are You Sexually Active? Yes [id number] Information not available 07/27/2020 Smoke Alarm In Home Yes Information not available 08/10/2015 At What Age Did You Start Smoking Tobacco? 17 [id number] Information not available 07/27/2020 Are You Passively Exposed To Smoke? Yes [email or web address] Information no t available 07/15/2020 Do You Or Have You Ever Used Smokeless Tobacco? Never Used Smokeless Tobacco [id number] Information not available 07/27/2020 How Much Tobacco Do You Smoke? 1.5 PPD [id number] Information not available 07/27/2020 General Stress Level High Information not available 05/26/2014 Do You Use Any Illicit Or Recreational Drugs? No Information not available 12/13/2021 Do You Use Sunscreen Routinely? Yes [id number] Information not available 07/27/2020 Do You Or Have You Ever Used Any Other Forms Of Tobacco Or Nicotine? No Information not available 12/13/2021 Sex: Unknown Functional Status Question Answer Note LastModified by Organizat ion Details LastModified Time Are you able to walk? [email or web address] Information not available 12/13/2021 Are you able to care for yourself? No [id number] Information not available 07/27/2020 What is your exercise level? Occasional [id number] Information not available 07/27/2020 Mental Status None recorded. Family History Relationship Description Onset Age of this Age Resolved Age Notes LastModified by Organization Details LastModified Time Mother History of malignant neoplasm [email or web address] Not available 08/10 14:34:22 Maternal Grandfather Hypercholest [email or web address] Not available 08/10 14:34:22 Father Alcohol abuse [...] PF, 30 mcg/0.3 mL dose 021 completed Fabiola Carpenter MA [facility], [facility] 06/28/2021 15:21:04 COVID-19, mRNA, LNP-S, PF, 30 mcg/0.3 mL dose 021 completed GM Vazquez, [facility] 06/28/2021 15:21:23 Td (adult), 2 Lf tetanus toxoid, preservative free, adsorbed 019 completed Not Available [facility] 10/11/2019 02:21:30 Influenza, split virus, quadrivalent, PF 020 cancelled patient objection GM Richards, [facility] 07/15/2020 14:31:12 Influenza, split virus, trivalent, preservative 008 completed Not Available [facility] 04/07/2014 14:07:42 Tdap 008 completed Not Available [facility] 04/07/2014 14:07:42 Influenza, split virus, trivalent, preservative 010 completed Not Available [facility] 04/07/2014 14:07:42 Influenza, split virus, trivalent, preservative 011 completed Not Available [facility] 04/07/2014 14:07:43 Past Encounters Encounter ID Performer Location Encounter Start Date Encounter Closed Date Diagnosis/Indication Diagnosis SNOMED-CT Code Diagnosis ICD10 Code Diagnosis Note [id number] autoEComm erce [address] [facility] [place] [address] 11/19/2006 00:00:00 [id number] autoEComm erce [address] [facility] [place] [address] 12/10/2006 00:00:00 [id number] autoEComm erce [address] [facility] [place] [address] 02/22/2007 00:00:00 [id number] autoEComm erce [address] [facility] [place] [address] 08/24/2006 00:00:00 [id number] autoEComm erce [address] [facility] [place] [address] 06/22/2006 00:00:00 [id number] [address]Comm er[address] [place] [address] 06/04/2006 00:00:00 [id number] autoEComm erce [address] [facility] [address] [place] [address] 03/25/2007 00:00:00 [id number] autoEComm erce [address] [facility] [place] [address] 06/05/2007 00:00:00 [id number] autoEComm erce [address] [facility] [place] [address] 10/25/2007 00:00:00 [id number] autoEComm erce [address] [facility] [place] [address] 01/22/2008 00:00:00 [id number] autoEComm erce [address] [facility] [place] [address] 04/23/2008 00:00:00 [id number] autoEComm erce [address] [facility] [place] [address] 08/06/2008 00:00:00 [id number] autoEComm erce [address] [facility] [place] [address] 08/08/2008 00:00:00 [id number] autoEComm erce [address] [facility] [place] [address] 10/09/2008 00:00:00 [id number] autoEComm erce [address] [facility] [place] [address] 12/11/2008 00:00:00 [id number] autoEComm erce [address] [facility] [place] [address] 01/12/2009 00:00:00 [id number] autoEComm erce [address] [facility] [place] [address] 04/26/2009 00:00:00 [id number] autoEComm erce [address] [facility] [place] [address] 07/29/2009 00:00:00 [id number] autoEComm erce [address] [facility] [place] [address] 09/07/2009 00:00:00 [id number] autoEComm erce [address] [facility] [address] [place] [address] 02/09/2010 00:00:00 [id number] autoEComm erce [address] [facility] [place] [address] 03/11/2010 00:00:00 [id number] autoEComm erce [address] [facility] [place] [address] 05/31/2010 00:00:00 [id number] autoEComm erce [address] [facility] [address] [place] [address] 06/21/2010 00:00:00 [id number] autoEComm erce [address] [facility] [place] [address] 08/24/2010 00:00:00 [id number] autoEComm erce [address] [facility] [place] [address] 09/12/2010 00:00:00 [id number] autoEComm erce [address] [facility] [place] [address] 11/24/2010 00:00:00 [id number] autoEComm erce [address] [facility] [place] [address] 01/20/2011 00:00:00 [id number] autoEComm erce [address] [facility] [place] [address] 03/02/2011 00:00:00 [id number] autoEComm erce [address] [facility] [place] [address] 06/09/2011 00:00:00 [id number] autoEComm erce [address] [facility] [place] [address] 10/03/2011 00:00:00 [id number] autoEComm erce [address] [facility] [place] [address] 02/05/2012 00:00:00 [id number] [address]Comm er[address] [place] [address] 03/05/2012 00:00:00 [id number] autoEComm erce [address] [place] [address] 05/01/2012 00:00:00 [id number] autoEComm erce [address] [place] [address] 07/08/2012 00:00:00 [id number] autoEComm erce [address] [place] [address] 10/08/2012 00:00:00 [id number] autoEComm erce [address] [facility] [address] [place] [address] 01/09/2013 00:00:00 [id number] autoEComm erce [address] [facility] [place] [address] 07/15/2013 00:00:00 [id number] autoEComm erce [address] [facility] [place] [address] 01/05/2014 00:00:00 [id number] autoEComm erce [address] [facility] [place] [address] 11/09/2009 00:00:00 [id number] autoEComm erce [address] [facility] [place] [address] 04/09/2013 00:00:00 [id number]Comm [address] [place] [address] 11/28/2011 00:00:00 [id number] autoEComm erce [address] [facility] [address] [place] [address] 09/15/2011 00:00:00 [id number] autoEComm erce [address] [facility] [address] [place] [address] 07/11/2011 00:00:00 [id number] Main Office [address] [place] [address] 05/26/2014 11:43:44 05/26/2014 12:22:40 Type 2 diabetes mellitus 78005073 Pure hypercholesterolemia 378660404 Schizophrenia 59227731 Tobacco de pendence syndrome 46780754 [id number] Katy Shafer Main Office [address] [address] [place] [address] 07/15/2014 13:46:49 07/15/2014 14:50:06 Allergic rhinitis 09692105 Cough 91821189 Cough, congestion , insp/ exp wheezing, hoarse voice, tachycardi a, sat 93% RA. Will treat with prednisone burst and zpak for possible bacterial infection. Also recommend patient use her inhaler 2 puffs every 4 hours as needed for cough/ wheezing. Stay well hydrated, humidifier as needed, rest, tylenol or ibuprofen as needed for pain/ fever. Nasal congestion [id number] Katy Camerongeetha Main Office [address] [address] [place] [address] 01/27/2015 14:32:48 01/27/2015 15:55:21 Adult health examination 262061171 Administra tion of pneumococcal vaccine 03515448 Type 2 irasema betes mellitus without complication 487938112 will increase her metformin from 500 bid to 1000 bid since her A1C is no longer at goal. Screening for malignant neoplasm of breast 919192458 Pure hypercholesterolemia 089595511 will increase her dose from 20 to 40 mg since her LDL is not at goal. Schizophrenia 92585824 o n meds, living in a jail and followed by psych. [id number] Main Office [address] [address] [place] [address] 05/06/2015 14:03:50 05/06/2015 15:26:34 Type 2 diabetes mellitus 24140210 Pure hypercholesterolemia 381527885 will increase her dose from 20 to 40 mg since her LDL is not at goal. Allergic rhinitis 94328756 continue current mgmt [id number] Marlin Amador MD Main Office [address] [address] [place] [address] 08/10/2015 14:23:33 08/10/2015 15:23:14 Type 2 diabetes mellitus 86229424 E11.9 her A1C has been at goal in the past. She is c/w her meds. Gynecologi c examination 13469328 Z01.411 Screening for malignant neoplasm of breast 037892476 Z12.39 she has never had a mammogram because she has been anxious about going but states that she feels she is now ready. Tobacco de pendence syndrome 59731328 F17.290 we spoke about quitting. She stopped smoking in the past during each of her pregnancie s. [id number] Mikki Bertrand Main Office [address] [place] [address] 11/09/2015 14:31:59 11/09/2015 15:27:25 Type 2 diabetes mellitus 52817773 E11.9 her A1C is at goal in the past. She is c/w her meds. Schizophrenia 17788759 F 20.3 on meds, living in a jail and followed by psych. Tobacco de pendence syndrome 84115367 F17.290 we spoke about quitting. She stopped smoking in the past during each of her pregnancie s. Pure hypercholesterolemia 772943181 E78.0 we increased her dose from 20 to 40 mg since her LDL was not at goal. Recheck fasting lipid level. Chest pain 56440428 R07. 9 she is at high risk for heart disease because of her smoking and diabetes [id number] Marlin Amador MD Main Office [address] [place] [address] 02/16/2016 12:45:58 02/16/2016 13:25:59 Type 2 diabetes mellitus 53732302 E11.9 her A1C is at goal in the past. She is c/w her meds. Schizophrenia 65062811 F 20.3 on meds, living in a jail and followed by psych. [id number] Marlin Amador MD Main Office [address] [address] [place] [address] 06/30/2016 15:03:47 06/30/2016 15:45:43 Injury of finger 33304011 S69.82XA L big finger injury due to fall. XRAys to r/o fracture. Immobiliza tions with splint, ice several times daily and NSAIDs as directed for 7-10 days. referral to hand specialist . [id number] Vanessa benson Main Office [address] [place] [address] 09/22/2016 15:06:27 09/22/2016 16:05:08 Cough 16460333 R05 Acute pharyngitis 943378 003 J02.9 Acute sinusitis 43136197 J01.90 Wheezing 47570525 R06.2 [id number] Marlin Amador MD Main Office [address] [address] [place] [address] 10/31/2016 13:40:19 10/31/2016 14:46:59 Adult health examination 183607132 Z00.00 UTD with immunizati ons. Had a PAP done Jul 2015. Type 2 irasema betes mellitus 95096591 E11.9 her A1C is a little above goal. She is c/w her meds. She will try to make some changes and we will f/u in 3 months w/o making any changes in meds right now. We will make an eye appointmen t for her. Schizophrenia 59435102 F 20.3 on meds, living in a jail and followed by psych. Tobacco de pendence syndrome 88726060 F17.290 we spoke about quitting. She stopped smoking in the past during each of her pregnancie s. Hyperlipidemia 65290775 E78.5 We increased her med at a previous visit and will recheck her fasting lipid level. [id number] Marlin Amador MD Main Office [address] [address] [place] [address] 12/25/2016 11:34:50 12/25/2016 12:20:54 Acute conjunctivitis 03690913 H10.33 Nasal congestion 8838737 0 R09.81 [id number] Marlin Amador MD Main Office [address] [address] [place] [address] 03/06/2017 12:39:50 03/06/2017 13:33:42 Type 2 diabetes mellitus 39098888 E11.9 Her A1C continues to rise as does her weight. We will add januvia to her regimen. Schizophrenia 73957492 F 20.3 on meds, living in a jail and followed by psych. [id number] Marlin Amador MD Main Office [address] [address] [place] [address] 05/10/2017 15:11:49 05/10/2017 16:27:12 Sore throat 019916773 J02.9 Pneumonia 925375650 J18. 9 Wheezing 17062364 R06.2 is running low on proair - has used it past few days - will renew [id number] Marlin Amador MD Main Office [address] [facility] [address] [place] [address] 05/24/2017 09:33:03 05/24/2017 11:17:36 Dyspnea 744118208 R06.00 much improved p pna rx pt [...] gums - it has helped before Pneumonia 892054576 J18. 9 resolved s/p rx Tobacco de pendence syndrome 61228816 F17.200 strongly encouraged tob cessation - she states she will try ankit gums again - this had worked for her in the past Cough 26193404 R05 most likely d/t prolonged tobacco exp. - see below Chronic ob structive pulmonary disease 81773889 J44.9 see above [id number] Marlin Amador MD Main Office [address] [facility] [address] [place] [address] 06/06/2017 14:22:12 06/06/2017 16:18:04 Type 2 diabetes mellitus 17209666 E11.9 Since her A1C was rising we did a script for januvia which was not covered by her insurance. We then did a script for actos which she only filled about 2-3 weeks ago. Her A1C has come down slightly so we will not make any changes at this time. Chronic ob structive pulmonary disease 54991608 J44.9 We discussed quitting smoking to help prevent further progressio n. Since she denies SOB and exam is normal we will not start any meds but will monitor her function. [id number] Ana María Jazmine crain Main Office [address] [facility] [address] [facility] [place] [address] 07/06/2017 12:59:15 07/06/2017 14:07:16 Uncontrolled type 2 diabetes mellitus 619164285 E11.65 Total time spent teaching and coordinati [...] be set up to see notionist at [facility]. Pt. was advised to start exercise activity [...] m. Body mass index 30+ - obesity 506102141 Z68.34 Obesity 703866610 E66.9 [id number] Marlin Amador MD Main Office [address] [address] [place] [address] 09/05/2017 12:48:05 09/05/2017 13:58:41 Uncontrolled type 2 diabetes mellitus 893917932 E11.65 Excellent improvemen t in A1C which is now less than 7.0 again (down to 6.8). She will continue with current mgmt since it is working. Dysuria 54509910 R30.0 No longer with symptoms so will send culture and will not do abx for now. She was advised to drink more fluids. Schizophrenia 13295068 F 20.3 on meds, living on her own with supervisio n and followed by psych. [id number] Deaj Murphy PA-C Main Office [address] [place] [address] 10/23/2017 14:27:22 10/23/2017 15:48:51 Uncontrolled type 2 diabetes mellitus 346153001 E11.65 STable type II Diabetes w/o complicati ons. Continue current meds. Discussed lowering calories even further and increasing exercise activity. Test glucose 1 time per day and bring glucose log to next visit. F/u 3 m. Repeat labs. Upper resp iratory infection 34543820 J06.9 Wheezing 82009046 R06.2 Chronic ob structive pulmonary disease 49701379 J44.9 Body mass index 30+ - obesity 965958833 E66.01 Z68.35 [id number] Marlin Amador MD Main Office [address] [facility] [address] [place] [address] 02/27/2018 13:02:09 02/27/2018 14:22:54 Adult health examination 141780483 Z00.00 UTD with immunizati ons. Had a PAP done Jul 2015 and will return for a PAP Genital warts 773076059 A63.0 Will try topical treatment and if persists will Uncontroll ed type 2 diabetes mellitus 353112285 E11.65 A1C continues to be at goal below 7.0 and is currently at 6.3 . She will continue with current mgmt since it is working. [id number] Marlin Amador MD Main Office [address] [facility] [address] [place] [address] 06/06/2018 12:57:48 06/06/2018 13:58:46 Uncontrolled type 2 diabetes mellitus 408735180 E11.65 A1C continues to be at goal below 7.0 and is currently at 6.6. She will continue with current mgmt since it is working. Schizophrenia 74046207 F 20.3 on meds, living on her own with supervisio n and followed by psych. [id number] Marlin Amador MD Main Office [address] [facility] [address] [place] [address] 08/22/2018 13:25:23 08/22/2018 14:17:54 Acute pharyngitis 587601492 J02.9 Cough 86757512 R05 She will use robitussin prn. [id number] Marlin Amador MD Main Office [address] [facility] [address] [place] [address] 03/20/2019 15:00:36 03/20/2019 15:56:26 Uncontrolled type 2 diabetes mellitus 748490943 E11.65 A1C continues to be at goal below 7.0 and is currently at 6.7. She will continue with current mgmt since it is working. Schizophrenia 35719955 F 20.3 on meds, living on her own with supervisio n and followed by psych. Chronic ob structive pulmonary disease 21868352 J44.9 Continues to smoke Requires a tetanus booster 181528696 Z23 [id number] Marlin Amador MD Main Office [address] [facility] [address] [place] [address] 06/23/2019 14:34:34 06/23/2019 15:59:51 Adult health examination 108375796 Z00.00 UTD with immunizati ons. Had a PAP done Jul 2015 and will return for a PAP Type 2 irasema betes mellitus without complication 556007898 E11.9 Body mass index 30+ - obesity 282853046 E66.01 Z68.36 Schizophrenia 48415904 F 20.3 on meds, living on her own with supervis n and followed by psych. [id number] Marlin Amador MD Main Office [address] [facility] [address] [place] [address] 04/13/2020 12:37:21 04/13/2020 13:38:09 Uncontrolled type 2 diabetes mellitus 092055647 E11.65 A1C continues to be at goal below 7.0 and is currently at 6.7. She will continue with current mgmt since it is working. Lateral ep icondylitis of right humerus 4928675695 49879 M77.11 Chronic ob structive pulmonary disease 38748009 J44.9 Continues to smoke Schizophrenia 33220623 F 20.3 on meds, living on her own with supervis n and followed by psych. Tobacco de pendence syndrome 30520446 F17.290 we spoke about quitting. She stopped smoking in the past during each of her pregnancie s. [id number] Marlin Amador MD Main Office [address] [facility] [address] [place] [address] 07/15/2020 14:10:04 07/15/2020 15:21:15 Adult health examination 529155626 Z00.00 UTD with immunizati ons but refuses a flu vaccine. Had a PAP done Jul 2015 and will return for a PAP Needs infl uenza immunization 974243431 Z23 Uncontroll ed type 2 diabetes mellitus 576381289 E11.65 Her diabetes is no longer uncontroll ed; her A1C today is 7.0. She was encouraged to stay with the same mgmt. Schizophrenia 18967095 F 20.3 on meds, living on her own with supervisio n and followed by psych. Tobacco de pendence syndrome 62926670 F17.290 we spoke about quitting. She stopped smoking in the past during each of her pregnancie s. Body mass index 30+ - obesity 254299708 E66.01 [id number] Marlin Amador MD Main Office [address] [address] 10/14/2020 13:41:53 10/14/2020 14:42:06 Uncontrolled type 2 diabetes mellitus 685250415 E11.65 Her A1C increased form 7.0 to 7.7. We will increase her actos from 15 to 30 mg and see her back in 3 months. Hyperlipidemia 15807804 E78.5 We increased her med at a previous visit and LDL is now at goal. Schizophrenia 57802377 F 20.3 on meds, [facility]. Chronic ob structive pulmonary disease 08631078 J44.9 Continues to smoke [id number] Marlin Amador MD Main Office [address] [address] 02/07/2021 14:23:01 02/07/2021 15:22:47 Uncontrolled type 2 diabetes mellitus 582474490 E11.65 Her A1C continues to increase despite being c/w her meds. Will increase her actos from 30 to 45 mg and she will continue metformin trajenta. Chronic ob structive pulmonary disease 78270985 J44.9 Continues to smoke Hyperlipidemia 62366351 E78.5 LDL at goal. Will check fasting lipid level. Schizophrenia 21428848 F 20.3 on meds, [facility]. [id number] [facility]lin [facility]ador MD [facility] [address] [place] [address] 03/17/2021 13:57:16 03/18/2021 14:44:54 Uncontrolled type 2 diabetes mellitus 006731859 E11.65 She has been having SE's since [...] in 2 months. Tobacco de pendence syndrome 16872822 F17.290 we spoke about quitting. She stopped smoking in the past during each of her pregnancie s. Anxiety 96284860 F41.9 It is doubtful that this is secondary to her actos. She will speak to her mental health provider about this. [id number] Marlin Amador MD Main Office [address] [address] [place] [address] 06/28/2021 14:51:15 06/28/2021 15:56:27 Uncontrolled type 2 diabetes mellitus 491150992 E11.65 She was not able to tolerate the actos because of ankle swelling, nausea and bloating. She stopped this a couple of months ago and her SE's resolved. Unfortunat sheila her A1C increased from 8.1 to 9.3. We will add another po med and she understand s that she may need meds that require injections in the future. Schizophrenia 31525048 F 20.3 on meds, living on her own with supervisio cipriano and followed by psych. Hyperlipidemia 68528549 E78.5 LDL at goal. Will check fasting lipid level next appointmen samantha [id number] Marlin Amador MD Main Office [address] [address] [place] [address] 08/16/2021 13:29:39 08/16/2021 14:38:24 Tinea cruris 694649667 B35.6 Candidiasis of vagina 72 923009 B37.3 [id number] Marlin Amador MD Main Office [address] [address] [place] [address] 12/13/2021 12:41:16 12/13/2021 13:49:23 Adult health examination 962096838 Z00.00 UTD with immunizati ons. Had a PAP done Jul 2015 and will return for a PAP. Does not want to do one today. Uncontroll ed type 2 diabetes mellitus 611306219 E11.65 She was not able to tolerate the actos because of ankle swelling, nausea and bloating. She stopped this a couple of months ago and her SE's resolved. Unfortunat sheila her A1C increased from 8.1 to 9.3. We will add another po med and she understand s that she may need meds that require injections in the future. Chronic ob structive pulmonary disease 02934238 J44.9 Continues to smoke Hyperlipidemia 03714972 E78.5 LDL at goal. Will check fasting lipid level. Schizophrenia 67197870 F 20.3 on meds, living on her own with supervisio n and followed by psych. Body mass index 30+ - obesity 378124500 E66.01 Z68.33 [id number] Marlin Amador MD Main Office [address] [facility] [address] [place] [address] 08/29/2022 13:05:29 08/29/2022 14:30:53 Uncontrolled type 2 diabetes mellitus 061651862 E11.65 She was not able to tolerate the actos because of ankle swelling, nausea and bloating. She stopped this and her SE's resolved. . We added jardiance and tradjenta and her A1C came down from 9.3 to 7.6. She will work on lifestyle changes to bring this down more. Allergic rhinitis 980177 04 J30.9 continue current mgmt Schizophrenia 99580461 F 20.3 on meds, living on her own with supervis n and followed by psych. [id number] Marlin Amador MD Main Office [address] [facility] [address] [place] [address] 04/24/2023 14:19:20 04/24/2023 15:26:54 Uncontrolled type 2 diabetes mellitus 207694230 E11.65 She was not able to tolerate the actos because of ankle swelling, nausea and bloating. She stopped this and her SE's resolved. . We added jardiance and tradjenta and her A1C came down from 9.3 to 7.6. She checks her sugars and says that they are generally in the low 100's. Schizophrenia 07359632 F 20.3 on meds, living on her own with supervisio n and followed by psych. Allergic rhinitis 886562 04 J30.9 continue current mgmt Chronic ob structive pulmonary disease 29376486 J44.9 Continues to smoke [id number] Marlin Amador MD Main Office [address] [facility] [address] [place] [address] 08/07/2023 13:23:20 08/07/2023 14:27:58 Uncontrolled type 2 diabetes mellitus 843654723 E11.65 She was not able to tolerate the actos because of ankle swelling, nausea and bloating. She stopped this and her SE's resolved. . We added jardiance and tradjenta and her A1C came down from 9.3 to 7.2. She checks her sugars and says that they are generally in the low 100's. Adult [facility] th examination 327171273 Z00.00 UTD with immunizati ons. Had a PAP done Jul 2015 and will return for a PAP. Does not want to do one today. Screening for malignant neoplasm of colon 735535147 Z12.11 Tobacco de pendence syndrome 11094898 F17.290 we spoke about quitting. She stopped smoking in the past during each of her pregnancie s. Chronic ob structive pulmonary disease 75301496 J44.9 Continues to smoke Hyperlipidemia 10691333 E78.5 LDL at goal. Will check fasting lipid level. Schizophrenia 52530934 F 20.3 on meds, living on her own with supervisio n and followed by psych. Has some mild depression which is followed by her psych provider. [id number] MARIE Pfeiffer Main Office [address] [facility] [address] [place] [address] 11/23/2023 11:21:25 11/23/2023 12:21:38 Uncontrolled type 2 diabetes mellitus 117057893 E11.65 A1C increased from 7.2 to 7.3, Would like to continue on metformin and tradjenta instead of adding med, will stay consistent with exercise and trying to eat better. Does exercises in 3 sets to get through during the day. Tradjenta refilled. Schizophrenia 52581717 F 20.3 on meds, living on her own with supervisio n and followed by psych. Allergic rhinitis 505499 04 J30.9 continue current mgmt Chronic ob structive pulmonary disease 54562955 J44.9 Continues to smoke [id number] Marlin Amador MD Main Office [address] [facility] [address] [place] [address] 02/27/2024 14:25:32 02/27/2024 15:27:48 Uncontrolled type 2 diabetes mellitus 945829587 E11.65 She was not able to tolerate the Actos because of ankle swelling, nausea and bloating. She stopped this and her SE's resolved. . We added jardiance and tradjenta and her A1C came down from 9.3 to 7.2. But the jardiance is no longer on formulary. She also stopped the tradjenta for unclear reasons but will restart it. Fatigue 90233090 R53.83 Hyperlipidemia 76228714 E78.5 Last LDL at goal. Will check fasting lipid level. Schizophrenia 88237215 F 20.3 on meds, living on her [...] [place] [employer] Aura Sergio Sana [id number] Aura Sergio Sana 08/29/2022 2 [place] [facility] Aura M Sana [id number] Aura Hood 04/24/2023 1 [place] [employer] Aura M Sana [id number] Aura Hood 04/24/2023 2 [place] [facility] Aura M Sana [id number] Aura Hood 08/07/2023 1 MEDICARE B-[place]: [facility] Aura Hood [id number] Aura Hood 08/07/2023 2 [place] [facility] Aura Hood [id number] Aura Hood 11/23/2023 1 MEDICARE B-[place]: [facility] Aura Hood [id number] Aura Hood 11/23/2023 2 [place] [facility] Aura Hood [id number] Aura Hood 02/27/2024 1 MEDICARE B-[place]: [facility] Aura Hood [id number] Aura Hood 02/27/2024 2 [place] [facility] Aura Hood [id number] Aura Hood Notes Date Note Type Note [...] is followed by psych. Marlin Amador MD [address] [address], [place], [address], [facility] 08/29/2022 17:16:25 04/24/2023 text/html Diabetes F/URepo rted [...] a problem recently. Marlin Amador MD [address], [address], [facility] 04/24/2023 17:14:52 08/07/2023 text/html Generic HPI TemplateReported bypatient.Notes:She is followed by psych and is also by the [facility]. She lives on her own with supervision [...] falls while walking Marlin Amador MD [address], [address], [facility] 08/09/2023 07:47:33 11/23/2023 text/html Generic HPI TemplateReported [...] with just 2 meds. MARIE Pfeiffer [address] [address], [place], [address], [facility] 11/23/2023 12:21:58 02/27/2024 text/html Diabetes F/URepo [...] been a problem recently. Marlin Amador MD [address], [address], [facility] 02/27/2024 18:37:36 OBGyn Episode No OBEpisode recorded.
--- NOTE | 2025-01-13 20:50 | PC.NURSE ---
Pt. oxygen saturation continuing to decreased to 85% on oxy mask, RT had placed pt. on high flow @ 50L.
--- NOTE | 2025-01-13 21:03 | PHA.MEDREC ---
Addendum entered by Mac Collado brad 01/13/25 21:08: med rec reviewed Original Note: Pharmacy Consult ? Medication Reconciliation Pharmacy has completed the medication reconciliation. Spoke to patient to confirm med list.
--- NOTE | 2025-01-13 21:04 | PM.IMHP ---
History of Present Illness Date of Service: 01/13/25 Attending physician on admission: Sean Moyer Chief Complaint: Shortness of breath, weakness Patient is a 49-year-old female with a past medical history significant for mood disorder, HTN, HLD, type 2 diabetes, obesity, smoker, who presents to the ED due to shortness of breath and weakness for an unknown period of time however worsening over the past week. Patient reports that she is smoking about 2 packs per day. Her history is very difficult to follow as the patient does not answer direct questions and has a flight of ideas. It is unclear if the cough is productive and she denies any fever. Workup in the ED significant for sepsis secondary to pneumonia and pleural effusion with acute hypoxic respiratory failure requiring high-flow oxygen. The patient smokes 2 packs per day and likely has underlying COPD however no official diagnosis. She was given 2 L IV fluids and started on IV antibiotics for pneumonia. CTA to rule out PE was negative for PE however did show pneumonia and small bilateral pleural effusions. Review of Systems Review of Systems: Very difficult to obtain due to psychiatric diagnosis Constitutional: Constitutional: Denies chills, Reports fatigue, Denies fever(s) and Denies headache(s) Eyes: Eyes: Denies change in vision and Denies photophobia ENT: Denies headache(s), Denies nasal congestion, Denies nasal discharge and Denies sore throat Cardiovascular: Cardiovascular: Denies chest pain, Denies rapid heart rate, Denies leg edema, Denies lightheadedness and Reports dyspnea Respiratory: Respiratory: Reports cough, Reports dyspnea and Denies wheezing Gastrointestinal: Gastrointestinal: Denies diarrhea, Denies nausea and Denies vomiting Genitourinary: Genitourinary: Denies dysuria and Denies urinary urgency Musculoskeletal: Musculoskeletal: Denies myalgias Integumentary/Breasts: Skin/Breast: Denies rash Neurologic: Denies confusion and Denies headache(s) Psychiatric: Psychiatric: Denies confusion Endocrine: Endocrine: Reports fatigue Hematologic/Lymphatic: Hematologic/Lymphatic: Denies easy bleeding and Denies easy bruising Allergic/Immunologic: Allergic/Immunologic: Denies wheezing [facility] Medical History (Updated 01/13/25 @ 21:14 by Nano Winn PA-C) Obesity (BMI 30-39.9) Type 2 diabetes mellitus without complications HLD (hyperlipidemia) HTN (hypertension) Mood disorder Functional capacity: independent ambulation Social History Patient Tobacco Use Status: Current everyday Tobacco user Narrative: smokes 2pk/day makes own cigarettes, social occasional etoh, no drug use Meds Allergies Allergy/AdvReac Type Severity Reaction Status Date / Time haloperidol [From Haldol] AdvReac Difficulty Verified 01/13/25 16:13 Breathing Active Medications: Current Medications Acetaminophen (Acetaminophen 325 Mg Tablet) 975 mg PO Q6H PRN PRN Reason: Pain, Mild 1-3,fever,headache Benzonatate (Benzonatate 100 Mg Capsule) 100 mg PO TID PRN PRN Reason: Cough Calcium Carbonate (Calcium Carbonate 750 Mg Tab.Chew) 750 mg PO Q4H PRN PRN Reason: Heartburn Ceftriaxone Sodium (Ceftriaxone Sodium 1 Gm Vial) 1 gm IVPUSH Q24H [facility] Levalbuterol HCl 2.5 mg/ (Ipratropium [place] 0.5 mg) 0 mg INHALE Q4H PRN PRN Reason: Shortness of Breath/Wheezing Dextrose (Dextrose 50 % 25 Gm/50 Ml Syringe) 25 gm IVPUSH Q15M PRN; Protocol PRN Reason: per Hypoglycemia Standing Ord. Enoxaparin Sodium (Enoxaparin Sodium 40 Mg/0.4 Ml Syringe) 40 mg SUBCUT Q24H [facility] Glucose (Glucose Gel 15 Gm Gel..Gram.) 15 gm PO Q15M PRN; Protocol PRN Reason: per Hypoglycemia Standing Ord. Doxycycline Hyclate 100 mg/ (Sodium Chloride) 250 mls @ 166.67 mls/hr IV Q12H [facility] Insulin Human Lispro (Insulin Lispro 100 Unit/Ml 3 Ml Vial) 0 unit SUBCUT QIDACHS [facility]; Protocol Magnesium Hydroxide (Milk Of Magnesia 30 Ml Oral.Susp) 30 ml PO DAILY PRN PRN Reason: Constipation Melatonin (Melatonin 3 Mg Tablet) 6 mg PO BEDTIME PRN PRN Reason: Insomnia Ondansetron HCl (Ondansetron Hcl 4 Mg/2 Ml Vial) 4 mg IVPUSH Q8H PRN PRN Reason: Nausea and Vomiting Oxycodone HCl (Oxycodone Hcl Immed Release 5 Mg Tablet) 5 mg PO Q6H PRN PRN Reason: Pain, Moderate(Pain Scale 4-6) Sodium Chloride (0.9 % Sodium Chloride Flush 3 Ml Syringe) 3 ml IVFLUSH QSHIFT [facility] Home Medications ?Medication ?Instructions ?Recorded ?Confirmed ?Last Taken ?Type clozapine 100 mg tablet 200 mg PO BEDTIME 01/13/25 01/13/25 01/12/25 History divalproex 500 mg tablet,extended 1,000 mg PO BEDTIME 01/13/25 01/13/25 01/12/25 History release 24 hr linagliptin 5 mg tablet (Tradjenta) 5 mg PO DAILY 01/13/25 01/13/25 01/12/25 History lisinopril 5 mg tablet 5 mg PO DAILY 01/13/25 01/13/25 01/12/25 History lovastatin 40 mg tablet 40 mg PO DAILY 01/13/25 01/13/25 01/12/25 History metformin 1,000 mg tablet 1,000 mg PO BID 01/13/25 01/13/25 01/12/25 History risperidone 4 mg tablet 4 mg PO BEDTIME 01/13/25 01/13/25 01/12/25 History Physical Exam Vital Signs and Narrative: Vital Signs: Last Vital Signs Temp 99.6 F 01/13/25 16:06 Pulse 89 01/13/25 18:00 Resp 20 01/13/25 20:15 BP 128/62 01/13/25 18:00 Pulse Ox 94 01/13/25 18:00 O2 Del Method Oxymask 01/13/25 18:00 O2 Flow Rate 15 01/13/25 18:00 Oxygen Flow Rate 10 01/13/25 16:06 BMI result Body Mass Index 35.7 General: AOx3, no acute distress Resp: diminshed throughout with crackeles in LLL, no wheezing CVS: S1, S2, RRR GI: +BS, NT, no distention Skin: Warm, dry Neuro: Cranial nerves II-XII grossly intact bilaterally. Motor grossly intact bilaterally Extremities: No LE edema Psych: Flight of ideas Const: General: No confusion Orientation/consciousness: No confusion Eyes: Direct Ophthalmoscopy: No photophobia Neuro: General: No confusion Results Labs 01/13/25 16:35 01/13/25 16:35 Labs: Laboratory Results - last 24 hr 01/13/25 01/13/25 01/13/25 16:34 16:35 16:41 MCV 93.4 MCH 29.4 MCHC 31.4 RDW 14.1 Plt Count 234 MPV 9.4 Immature Gran % (Auto) 1.5 H Neut % (Auto) 64.4 Lymph % (Auto) 21.7 [place] % (Auto) 11.3 H Eos % (Auto) 0.4 Baso % (Auto) 0.7 Lymph # (Auto) 1.8 [place] # (Auto) 1.0 Eos # (Auto) 0.0 Baso # (Auto) 0.1 Abs Immat Gran (auto) 0.13 H Absolute Neuts (auto) 5.4 Absolute Nucleated RBC 0.030 H Nucleated RBC % (auto) 0.4 H D-Dimer High Sensitivty 425 VBG pH 7.38 VBG pCO2 76 VBG pO2 75 VBG HCO3 46 H VBG O2 Saturation 95.0 VBG Base Excess 16.7 Anion Gap 14 Estim Creat Clear Calc 130.0 Estimated GFR > 60 Random Glucose 236 H Lactic Acid 0.8 Calcium 9.0 D Total Bilirubin 0.4 AST 14 ALT 35 H Alkaline Phosphatase 78 B-Natriuretic Peptide 38 Total Protein 6.8 Albumin 3.7 Influenza Type A (PCR) NEGATIVE Influenza Type B (PCR) NEGATIVE RSV RNA Qual (PCR) NEGATIVE SARS-CoV-2 RNA (RT-PCR) NEGATIVE Assessment and Plan (1) Sepsis: Status: Acute (2) Acute respiratory failure with hypoxia and hypercapnia: Status: Acute (3) Pneumonia: Status: Acute (4) Pleural effusion: Status: Acute (5) Pulmonary nodules: Status: Acute (6) Lesion of adrenal gland: Status: Acute (7) Obesity (BMI 30-39.9): Status: Acute Plan Patient is a 49-year-old female with a past medical history significant for mood disorder, HTN, HLD, type 2 diabetes, obesity, smoker, who presents to the ED due to shortness of breath and weakness for an unknown period of time however worsening over the past week. Workup in the ED significant for sepsis secondary to pneumonia and pleural effusion with acute hypoxic respiratory failure requiring high-flow oxygen. The patient smokes 2 packs per day and likely has underlying COPD however no official diagnosis. She was given 2 L IV fluids and started on IV antibiotics for pneumonia. CTA to rule out PE was negative for PE however did show pneumonia and small bilateral pleural effusions. Sepsis with acute hypoxic and hypercapnic respiratory failure secondary to pneumonia with small bilateral pleural effusions - WBC 8.4, tachypneic and tachycardic, lactic acid normal, blood cultures x2 pending, not severe sepsis - COVID/flu/RSV negative - chest x-ray with nodular densities of the lungs - chest CTA negative for pulmonary embolism. Linear hypodensity crossing a left lower lobe segmental pulmonary artery is likely to be artifactual. Patchy opacities of the left lung concerning for pneumonia. Small bilateral pleural effusion. Multiple pulmonary nodules. Chest CT follow-up as indicated. Indeterminate lesion of the area of right adrenal gland/right lobe of the liver with partially visualized. - given 2L IVF in ED, BP stable, no further fluids needed at this time - started on ceftriaxone and azithromycin in ED, continue ceftriaxone and switch to doxycycline - on high flow O2, titrate as appropriate - levalbuteral/ipratropium Q4H PRN for SOB or wheezing - monitor CBC and BMP pulmonary nodules - all less than 5mm, but increased risk due to smoking status - follow up outpt for repeat CT, guideline recommendation 12 months lesion of adrenal gland/right lobe of liver - f/u outpt for further imaging. no abd pain. BP stable mood disorder - continue clozapine, divalproex, risperidone HTN - continue lisinopril T2DM - hold metformin and Tradjenta - sliding scale insulin - check A1C - diabetic diet HLD - continue statin smoker - smoking cessation discussed - nicotine patch class 2 obesity - BMI 35.7 - weight loss encouraged full code VTE prophy: lovenox Patient with sepsis and acute hypoxic and hypercapnic respiratory failure requiring admission for at least 2 midnight stay for IV antibiotics, supplemental oxygen and monitoring. Quality Stroke Does the patient have a stroke diagnosis?: No VTE Prior VTE?: No VTE Risk Level:: Medical - moderate - high VTE Device Contraindication: Treatment Not Indicated VTE Drug Contraindication: N/A - Med Ordered
--- NOTE | 2025-01-13 21:50 | PC.NURSE ---
Pt. refusing medicatioons ordered at this time and refused POC. Informed floor RN of this matter.
--- NOTE | 2025-01-13 22:01 | PC.NURSE ---
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 pt. being noncompliant and taking off oxygen stating I want to leave and not stay here. Pt. crying and yelling. pt. has hx of psych issues. Pt. had heart to heart with staff and decided to go upstairs.
[2025-01-13] MEDS: 0.9 % Sodium Chloride Flush 3 ML SYRINGE IVFLUSH (22:20)
[2025-01-13 22:25] LABS: Glucose, Whole Blood 187 mg/dL (60-115)
[2025-01-13] MEDS: cloZAPine 100 MG TABLET 200 MG PO (22:40)
[2025-01-13] MEDS: Divalproex Sodium ER 500 MG TAB.ER.24H 1000 MG PO (22:58)
[2025-01-13] MEDS: risperiDONE 2 MG TABLET 4 MG PO (22:58)
[2025-01-14] VITALS (11 sets, daily range): BP systolic 122–159; BP diastolic 51–68; PULSE 78–101; RESP 16–24; TEMP 36.4–37; O2SAT 88–95
[2025-01-14 06:18] LABS: Estimated Average Glucose 220 mg/dL; Hemoglobin A1C 264.2134 umol/L; Hemoglobin A1c % 9.3 % (<6.0); Total Hemoglobin (HGBA1C) 3376.4192 umol/L
[2025-01-14 06:59] LABS: MANUAL DIFF FLAG NO
[2025-01-14 07:07] LABS: Basophils Percent Auto 0.4 % (0-2); Eosinophils Absolute Auto 0.1 X10*3/uL (0.0-0.4); Eosinophils Percent Auto 0.6 % (0-4); Hematocrit 38.1 % (37.0-47.0); Imm Gran Abs Auto 0.09 X10*3/uL (0.00-0.03); Imm Gran Pct Auto 1.1 % (0.0-0.4); Lymphocytes Absolute Auto 2.8 X10*3/uL (1.2-4.9); Lymphocytes Percent Auto 32.6 % (20-40); Mean Corpuscular HGB Conc 31.5 g/dl (31.0-35.0); Mean Corpuscular Hemoglobin 30.4 pg (27.0-33.0); Mean Corpuscular Volume 96.5 fL (80.0-98.0); Mean Platelet Volume 9.8 fL (9.4-12.3); Monocytes Absolute Auto 0.9 X10*3/uL (0.1-1.2); Monocytes Percent Auto 10.9 % (2-11); Neutrophils Absolute Auto 4.6 x10*3/uL (2.0-8.3); Neutrophils Percent Auto 54.4 % (45-73); Platelet Count 225 X10*3/uL (160-400); Red Blood Count 3.95 X10*6/uL (4.20-5.50); Red Cell Distribution Width 14.2 % (11.0-16.0); White Blood Count 8.4 X10*3/uL (4.8-10.8)
[2025-01-14 07:21] LABS: Anion Gap 11 (12-20); Blood Urea Nitrogen 5 mg/dL (9-16); Calcium 8.4 mg/dL (8.4-10.2); Carbon Dioxide 36 mmol/L (22-29); Chloride 99 mmol/L (96-108); Estimated Glomerular Filt Rate > 60; Glucose Random 217 mg/dL (60-115); Potassium 4.1 mmol/L (3.3-5.1); Sodium 142 mmol/L (135-145)
[2025-01-14 07:35] LABS: Glucose, Whole Blood 176 mg/dL (60-115)
--- NOTE | 2025-01-14 09:49 | MHC.CM.PN ---
CM attempted to meet with Patient at bedside, with Sitter nearby; Patient does not appear able to respond appropriately to CM questions. CM called only Contact/Mother/Ember @ [phone] and left her a detailed message regarding the IMM, which will be mailed certified letter to Ember and a copy has been placed on the chart. Plan is for return to [facility], pending Care Team Consult; CM has initiated and will follow for dc planning.
[2025-01-14] MEDS: Doxycycline Hyclate 100 MG in 0.9 % Sodium Chloride 250 ML 166.67 MG IV ×2 (10:28→21:07)
[2025-01-14] MEDS: methylPREDNISolone Sod Succ 40 MG/ML VIAL IVPUSH ×2 (10:28→22:46)
[2025-01-14] MEDS: 0.9 % Sodium Chloride Flush 3 ML SYRINGE IVFLUSH ×3 (10:28→21:08)
[2025-01-14] MEDS: Insulin Lispro 100 UNIT/ML 3 ML VIAL SUBCUT ×4 (10:32→20:59)
[2025-01-14] MEDS: Pravastatin Sodium 40 MG TABLET PO (10:32)
[2025-01-14 10:40] LABS: VBG Base Excess 18.6 mmol/L; VBG HCO3 48 mmol/L (22-26); VBG pCO2 87 mmHg; VBG pH 7.35 (7.32-7.43); VBG pO2 77 mmHg
[2025-01-14 10:41] LABS: Venous Blood Gas Refer to POC result
[2025-01-14] MEDS: lisinopriL 5 MG TABLET PO (10:41)
--- NOTE | 2025-01-14 11:46 | P.PNIM_ITS ---
Subjective Subjective Date of Service: 01/14/25 Interval History: Sleepy, short of breath Physical Exam 2 Vital Signs: Vital Signs: Last Vital Signs Temp 98.6 F 01/14/25 08:00 Pulse 93 01/14/25 08:00 Resp 16 01/14/25 08:00 BP 122/51 L 01/14/25 08:00 Pulse Ox 92 01/14/25 08:00 O2 Del Method High Flow Nasal C annula 01/14/25 08:00 O2 Flow Rate 50 01/14/25 08:00 FiO2 70 01/14/25 08:00 Oxygen Flow Rate 10 01/13/25 16:06 BMI result Body Mass Index 36.2 Lethargic, oriented x3, on high-flow, ill-appearing, distant breath sounds with bilateral wheezes Objective Data Active Medications Acetaminophen (Acetaminophen 325 Mg Tablet) 975 mg PO Q6H PRN PRN Reason: Pain, Mild 1-3,fever,headache Benzonatate (Benzonatate 100 Mg Capsule) 100 mg PO TID PRN PRN Reason: Cough Calcium Carbonate (Calcium Carbonate 750 Mg Tab.Chew) 750 mg PO Q4H PRN PRN Reason: Heartburn Ceftriaxone Sodium (Ceftriaxone Sodium 1 Gm Vial) 1 gm IVPUSH Q24H [facility] Clozapine (Clozapine 100 Mg Tablet) 200 mg PO BEDTIME [facility] Last Admin: 01/13/25 22:40 Dose: 200 mg Documented By: KIMI Levalbuterol HCl 2.5 mg/ (Ipratropium [place] 0.5 mg) 0 mg INHALE Q4H PRN PRN Reason: Shortness of Breath/Wheezing Dextrose (Dextrose 50 % 25 Gm/50 Ml Syringe) 25 gm IVPUSH Q15M PRN; Protocol PRN Reason: per Hypoglycemia Standing Ord. Divalproex Sodium (Divalproex Sodium Er 500 Mg Tab.Er.24h) 1,000 mg PO BEDTIME [facility] Last Admin: 01/13/25 22:58 Dose: 1,000 mg Documented By: KIMI Enoxaparin Sodium (Enoxaparin Sodium 40 Mg/0.4 Ml Syringe) 40 mg SUBCUT Q24H [facility] Last Admin: 01/13/25 21:50 Dose: Not Given Documented By: SIVA Non-Admin Reason: Patient Refused Glucose (Glucose Gel 15 Gm Gel..Gram.) 15 gm PO Q15M PRN; Protocol PRN Reason: per Hypoglycemia Standing Ord. Doxycycline Hyclate 100 mg/ (Sodium Chloride) 250 mls @ 166.67 mls/hr IV Q12H [facility] Last Admin: 01/14/25 10:28 Dose: 166.67 mls/hr Documented By: ALLISON Insulin Human Lispro (Insulin Lispro 100 Unit/Ml 3 Ml Vial) 0 unit SUBCUT QIDACHS [facility]; Protocol Last Admin: 01/14/25 10:32 Dose: 2 unit Documented By: ALLISON Lisinopril (Lisinopril 5 Mg Tablet) 5 mg PO DAILY [facility]; Protocol Last Admin: 01/14/25 10:41 Dose: 5 mg Documented By: ALLISON Magnesium Hydroxide (Milk Of Magnesia 30 Ml Oral.Susp) 30 ml PO DAILY PRN PRN Reason: Constipation Melatonin (Melatonin 3 Mg Tablet) 6 mg PO BEDTIME PRN PRN Reason: Insomnia Methylprednisolone Sodium Succinate (Methylprednisolone Sod Succ 40 Mg/Ml Vial) 40 mg IVPUSH Q12H [facility] Last Admin: 01/14/25 10:28 Dose: 40 mg Documented By: ALLISON Nicotine (Nicotine 21 Mg Patch.Td24) 21 mg TRANSDERMA DAILY [facility] Last Admin: 01/14/25 10:32 Dose: Not Given Documented By: ALLISON Non-Admin Reason: Patient Refused Ondansetron HCl (Ondansetron Hcl 4 Mg/2 Ml Vial) 4 mg IVPUSH Q8H PRN PRN Reason: Nausea and Vomiting Oxycodone HCl (Oxycodone Hcl Immed Release 5 Mg Tablet) 5 mg PO Q6H PRN PRN Reason: Pain, Moderate(Pain Scale 4-6) Pravastatin Sodium (Pravastatin Sodium 40 Mg Tablet) 40 mg PO DAILY [facility] Last Admin: 01/14/25 10:32 Dose: 40 mg Documented By: ALLISON Risperidone (Risperidone 2 Mg Tablet) 4 mg PO BEDTIME [facility] Last Admin: 01/13/25 22:58 Dose: 4 mg Documented By: KIMI Sodium Chloride (0.9 % Sodium Chloride Flush 3 Ml Syringe) 3 ml IVFLUSH QSHIFT [facility] Last Admin: 01/14/25 10:28 Dose: 3 ml Documented By: ALLISON Labs 01/14/25 06:05 01/14/25 06:05 Labs: Laboratory Results - last 24 hr 01/13/25 01/13/25 01/13/25 16:34 16:35 16:41 MCV 93.4 MCH 29.4 MCHC 31.4 RDW 14.1 Plt Count 234 MPV 9.4 Immature Gran % (Auto) 1.5 H Neut % (Auto) 64.4 Lymph % (Auto) 21.7 [place] % (Auto) 11.3 H Eos % (Auto) 0.4 Baso % (Auto) 0.7 Lymph # (Auto) 1.8 [place] # (Auto) 1.0 Eos # (Auto) 0.0 Baso # (Auto) 0.1 Abs Immat Gran (auto) 0.13 H Absolute Neuts (auto) 5.4 Absolute Nucleated RBC 0.030 H Nucleated RBC % (auto) 0.4 H D-Dimer High Sensitivty 425 VBG pH 7.38 VBG pCO2 76 VBG pO2 75 VBG HCO3 46 H VBG O2 Saturation 95.0 VBG Base Excess 16.7 Anion Gap 14 Estim Creat Clear Calc 130.0 Estimated GFR > 60 POC Glucose Random Glucose 236 H Estimat Average Glucose 220 Hemoglobin A1c % 9.3 H Lactic Acid 0.8 Calcium 9.0 D Total Bilirubin 0.4 AST 14 ALT 35 H Alkaline Phosphatase 78 B-Natriuretic Peptide 38 Total Protein 6.8 Albumin 3.7 Influenza Type A (PCR) NEGATIVE Influenza Type B (PCR) NEGATIVE RSV RNA Qual (PCR) NEGATIVE SARS-CoV-2 RNA (RT-PCR) NEGATIVE 01/13/25 01/14/25 01/14/25 22:19 06:05 07:29 MCV 96.5 MCH 30.4 MCHC 31.5 RDW 14.2 Plt Count 225 MPV 9.8 Immature Gran % (Auto) 1.1 H Neut % (Auto) 54.4 Lymph % (Auto) 32.6 [place] % (Auto) 10.9 Eos % (Auto) 0.6 Baso % (Auto) 0.4 Lymph # (Auto) 2.8 [place] # (Auto) 0.9 Eos # (Auto) 0.1 Baso # (Auto) 0.0 Abs Immat Gran (auto) 0.09 H Absolute Neuts (auto) 4.6 Absolute Nucleated RBC 0.000 Nucleated RBC % (auto) 0.0 D-Dimer High Sensitivty VBG pH VBG pCO2 VBG pO2 VBG HCO3 VBG O2 Saturation VBG Base Excess Anion Gap 11 L Estim Creat Clear Calc 141.0 Estimated GFR > 60 POC Glucose 187 H 176 H Random Glucose 217 H Estimat Average Glucose Hemoglobin A1c % Lactic Acid Calcium 8.4 D Total Bilirubin AST ALT Alkaline Phosphatase B-Natriuretic Peptide Total Protein Albumin Influenza Type A (PCR) Influenza Type B (PCR) RSV RNA Qual (PCR) SARS-CoV-2 RNA (RT-PCR) 01/14/25 10:36 MCV MCH MCHC RDW Plt Count MPV Immature Gran % (Auto) Neut % (Auto) Lymph % (Auto) [place] % (Auto) Eos % (Auto) Baso % (Auto) Lymph # (Auto) [place] # (Auto) Eos # (Auto) Baso # (Auto) Abs Immat Gran (auto) Absolute Neuts (auto) Absolute Nucleated RBC Nucleated RBC % (auto) D-Dimer High Sensitivty VBG pH 7.35 VBG pCO2 87 VBG pO2 77 VBG HCO3 48 H VBG O2 Saturation 95.0 VBG Base Excess 18.6 Anion Gap Estim Creat Clear Calc Estimated GFR POC Glucose Random Glucose Estimat Average Glucose Hemoglobin A1c % Lactic Acid Calcium Total Bilirubin AST ALT Alkaline Phosphatase B-Natriuretic Peptide Total Protein Albumin Influenza Type A (PCR) Influenza Type B (PCR) RSV RNA Qual (PCR) SARS-CoV-2 RNA (RT-PCR) Assessment and Plan (1) Type 2 diabetes mellitus without complications: Status: Acute Plan 49F PMH morbid obesity, hypertension, mood disorder, diabetes, hyperlipidemia presented with shortness of breath Sepsis and acute hypoxic and hypercapnic respiratory failure Multifactorial Pneumonia-continue ceftriaxone doxycycline Undiagnosed COPD with acute decompensation-continue steroids, pulm eval wean o2 as tolerated mood disorder clozapine, depakote, risperdal htn lisinopril hld statin obesity wegith loss dvt prophylaxis -lovenox full code reason for continued hospitalization:hypoxia Quality Stroke Does the patient have a stroke diagnosis?: No VTE Prior VTE?: No VTE Risk Level:: Medical - moderate - high VTE Device Contraindication: Treatment Not Indicated VTE Drug Contraindication: N/A - Med Ordered
[2025-01-14 11:58] LABS: Glucose, Whole Blood 230 mg/dL (60-115)
[2025-01-14] MEDS: acetaZOLAMIDE sodium 500 MG VIAL IVPUSH ×2 (15:24→20:58)
[2025-01-14] MEDS: cefTRIAXone sodium 1 GM VIAL IVPUSH (15:24)
--- NOTE | 2025-01-14 15:45 | PM.CNPUL ---
History of Present Illness History of Present Illness Consult date: 01/14/25 Chief complaint: resp failure, pnuemonia, pleural effusions Narrative: 49-year-old lady, active 60+ pack-year smoker, with underlying history of hypertension, obesity, diabetes mellitus admitted on 01/13/2025 with slowly progressive dyspnea, particularly worse for about a week prior to hospitalization. On ER evaluation patient with significant hypoxia requiring supplemental oxygen, started on empiric systemic glucocorticoids. Her CT angio chest showed no pulmonary embolus, but evidence of pneumonia. Patient was covered with empiric antibiotics and admitted to telemetry [facility]. Patient was also noted to have significant chronic CO2 retention with elevated pCO2, but essentially normal pH. Review of Systems Constitutional: Constitutional: Denies daytime sleepiness, Denies excessive sweating, Denies fatigue, Denies fever(s), Denies lethargy, Denies malaise, Denies night sweats, Denies snoring and Denies weight loss Eyes: Eyes: Denies blurry vision and Denies itchy eyes ENT: Denies nasal congestion, Denies post nasal drip, Denies sinus pain, Denies sinus pressure and Denies other ( Thrush) Cardiovascular: Cardiovascular: Denies chest pain, Denies pedal edema, Reports dyspnea, Reports dyspnea on exertion, Denies orthopnea and Denies paroxysmal nocturnal dyspnea Respiratory: Respiratory: Denies cough, Denies hemoptysis, Denies excessive phlegm production, Reports dyspnea, Reports dyspnea on exertion, Denies snoring and Denies wheezing Gastrointestinal: Gastrointestinal: Denies abdominal pain and Denies heartburn Musculoskeletal: Musculoskeletal: Denies myalgias, Denies arthralgias and Denies joint swelling Integumentary/Breasts: Skin/Breast: Denies rash Neurologic: Denies memory loss and Denies seizure-like activity Psychiatric: Psychiatric: Denies abnormal sleep pattern, Denies anxiety and Denies memory loss Endocrine: Endocrine: Denies excessive sweating, Denies fatigue and Denies heat intolerance Hematologic/Lymphatic: Hematologic/Lymphatic: Denies easy bruising Allergic/Immunologic: Allergic/Immunologic: Denies itchy eyes, Denies seasonal rhinorrhea and Denies wheezing PMFSH Past Medical History Medical History (Updated 01/14/25 @ 15:53 by Surjit Luis MD) Obesity (BMI 30-39.9) Type 2 diabetes mellitus without complications HLD (hyperlipidemia) HTN (hypertension) Mood disorder Social History Social History Household Members: None Housing: Apartment Do you presently have visiting nurse or other home services: Yes ([facility] workers) Comment: [place] Patient Tobacco Use Status: Current everyday Tobacco user Smoked in Last 30 Days: Yes Patient Interested in Nicotine Replacement: No Patient Given Instructions on How to Stop Smoking: No (Declined) Second Hand Smoke Exposure: No Use of substances other than those prescribed or required for medical reasons: No Currently Displaying Signs/Symptoms of Drug Intoxication Withdrawal: No Any prior treatment program specific to substance use: No Have you been hit, kicked, punched, or otherwise hurt by someone within the past year? If so, by whom?: No Do you feel safe in your current relationship?: No Current Relationship Is there a partner from a previous relationship who is making you feel unsafe now?: No Are you made to feel afraid or neglected: No Spiritual Healthcare Practices: None Advance Directives: No Advance Directives Information Provided: No Advance Directives on File: No Do you have a plan to hurt others: No Plan Recently lost weight without trying: No Eating poorly because of decreased appetite: No Nutrition Risks: No Nutritional Risk Patient : No : No Poor oral hygiene: No service: No Meds Allergies Allergy/AdvReac Type Severity Reaction Status Date / Time haloperidol [From Haldol] AdvReac Difficulty Verified 01/13/25 16:13 Breathing Active Medications: Current Medications Acetaminophen (Acetaminophen 325 Mg Tablet) 975 mg PO Q6H PRN PRN Reason: Pain, Mild 1-3,fever,headache Acetazolamide (Acetazolamide Sodium 500 Mg Vial) 500 mg IVPUSH BID [facility] Stop: 01/15/25 09:01 Last Admin: 01/14/25 15:24 Dose: 500 mg Benzonatate (Benzonatate 100 Mg Capsule) 100 mg PO TID PRN PRN Reason: Cough Calcium Carbonate (Calcium Carbonate 750 Mg Tab.Chew) 750 mg PO Q4H PRN PRN Reason: Heartburn Ceftriaxone Sodium (Ceftriaxone Sodium 1 Gm Vial) 1 gm IVPUSH Q24H [facility] Last Admin: 01/14/25 15:24 Dose: 1 gm Clozapine (Clozapine 100 Mg Tablet) 200 mg PO BEDTIME [facility] Last Admin: 01/13/25 22:40 Dose: 200 mg Levalbuterol HCl 2.5 mg/ (Ipratropium [place] 0.5 mg) 0 mg INHALE Q4H PRN PRN Reason: Shortness of Breath/Wheezing Dextrose (Dextrose 50 % 25 Gm/50 Ml Syringe) 25 gm IVPUSH Q15M PRN; Protocol PRN Reason: per Hypoglycemia Standing Ord. Divalproex Sodium (Divalproex Sodium Er 500 Mg Tab.Er.24h) 1,000 mg PO BEDTIME [facility] Last Admin: 01/13/25 22:58 Dose: 1,000 mg Enoxaparin Sodium (Enoxaparin Sodium 40 Mg/0.4 Ml Syringe) 40 mg SUBCUT Q24H [facility] Last Admin: 01/13/25 21:50 Dose: Not Given Glucose (Glucose Gel 15 Gm Gel..Gram.) 15 gm PO Q15M PRN; Protocol PRN Reason: per Hypoglycemia Standing Ord. Doxycycline Hyclate 100 mg/ (Sodium Chloride) 250 mls @ 166.67 mls/hr IV Q12H [facility] Last Infusion: 01/14/25 12:59 Dose: Infused Insulin Human Lispro (Insulin Lispro 100 Unit/Ml 3 Ml Vial) 0 unit SUBCUT QIDACHS [facility]; Protocol Last Admin: 01/14/25 11:53 Dose: 4 unit Lisinopril (Lisinopril 5 Mg Tablet) 5 mg PO DAILY [facility]; Protocol Last Admin: 01/14/25 10:41 Dose: 5 mg Magnesium Hydroxide (Milk Of Magnesia 30 Ml Oral.Susp) 30 ml PO DAILY PRN PRN Reason: Constipation Melatonin (Melatonin 3 Mg Tablet) 6 mg PO BEDTIME PRN PRN Reason: Insomnia Methylprednisolone Sodium Succinate (Methylprednisolone Sod Succ 40 Mg/Ml Vial) 40 mg IVPUSH Q12H [facility] Last Admin: 01/14/25 10:28 Dose: 40 mg Nicotine (Nicotine 21 Mg Patch.Td24) 21 mg TRANSDERMA DAILY [facility] Last Admin: 01/14/25 10:32 Dose: Not Given Ondansetron HCl (Ondansetron Hcl 4 Mg/2 Ml Vial) 4 mg IVPUSH Q8H PRN PRN Reason: Nausea and Vomiting Oxycodone HCl (Oxycodone Hcl Immed Release 5 Mg Tablet) 5 mg PO Q6H PRN PRN Reason: Pain, Moderate(Pain Scale 4-6) Pravastatin Sodium (Pravastatin Sodium 40 Mg Tablet) 40 mg PO DAILY [facility] Last Admin: 01/14/25 10:32 Dose: 40 mg Risperidone (Risperidone 2 Mg Tablet) 4 mg PO BEDTIME [facility] Last Admin: 01/13/25 22:58 Dose: 4 mg Sodium Chloride (0.9 % Sodium Chloride Flush 3 Ml Syringe) 3 ml IVFLUSH QSHIFT [facility] Last Admin: 01/14/25 15:24 Dose: 3 ml Home Medications ?Medication ?Instructions ?Recorded ?Confirmed ?Last Taken ?Type clozapine 100 mg tablet 200 mg PO BEDTIME 01/13/25 01/13/25 01/12/25 History divalproex 500 mg tablet,extended 1,000 mg PO BEDTIME 01/13/25 01/13/25 01/12/25 History release 24 hr linagliptin 5 mg tablet (Tradjenta) 5 mg PO DAILY 01/13/25 01/13/25 01/12/25 History lisinopril 5 mg tablet 5 mg PO DAILY 01/13/25 01/13/25 01/12/25 History lovastatin 40 mg tablet 40 mg PO DAILY 01/13/25 01/13/25 01/12/25 History metformin 1,000 mg tablet 1,000 mg PO BID 01/13/25 01/13/25 01/12/25 History risperidone 4 mg tablet 4 mg PO BEDTIME 01/13/25 01/13/25 01/12/25 History Physical Exam Vital Signs: Vital Signs: Last Vital Signs Temp 98.1 F 01/14/25 15:15 Pulse 97 01/14/25 15:15 Resp 20 01/14/25 15:15 BP 159/68 H 01/14/25 15:15 Pulse Ox 91 L 01/14/25 15:15 O2 Del Method High Flow Nasal C annula 01/14/25 15:15 O2 Flow Rate 50 01/14/25 12:00 FiO2 70 01/14/25 12:00 Oxygen Flow Rate 10 01/13/25 16:06 BMI result Body Mass Index 36.2 Const: General: no acute distress, alert and awake Nutritional Appearance: not obese HEENT: Head: Yes atraumatic Eyes: General: appearance normal, both eyes and all related structures Sclerae: sclerae normal EOM: EOMs intact bilaterally Neck: Neck: Yes supple Lymphatic: no lymphadenopathy noted Resp: Effort & Inspection: normal respiratory effort and no use of accessory muscles Auscultation: clear to auscultation bilaterally Cardio: Rate: regular rate Rhythm: regular rhythm Heart sounds: no gallops, no murmurs and no rubs GI: Palpation (GI): Soft to palpation and Other GI palpation findings present ( Nontender) Auscultation: normal bowel sounds Skin: General skin exam: other ( warm) Extrem: General: No clubbing, No cyanosis and No edema Results Laboratory Findings 01/14/25 06:05 01/14/25 06:05 Abnormal lab findings: Abnormal Labs 01/13/25 01/13/25 01/13/25 16:35 16:41 22:19 RBC Immature Gran % (Auto) 1.5 H [place] % (Auto) 11.3 H Abs Immat Gran (auto) 0.13 H Absolute Nucleated RBC 0.030 H Nucleated RBC % (auto) 0.4 H VBG HCO3 46 H Chloride 94 L Carbon Dioxide 35 H Anion Gap BUN 6 L POC Glucose 187 H Random Glucose 236 H Hemoglobin A1c % 9.3 H ALT 35 H 01/14/25 01/14/25 01/14/25 06:05 07:29 10:36 RBC 3.95 L Immature Gran % (Auto) 1.1 H [place] % (Auto) Abs Immat Gran (auto) 0.09 H Absolute Nucleated RBC Nucleated RBC % (auto) VBG HCO3 48 H Chloride Carbon Dioxide 36 H Anion Gap 11 L BUN 5 L POC Glucose 176 H Random Glucose 217 H Hemoglobin A1c % ALT 01/14/25 11:07 RBC Immature Gran % (Auto) [place] % (Auto) Abs Immat Gran (auto) Absolute Nucleated RBC Nucleated RBC % (auto) VBG HCO3 Chloride Carbon Dioxide Anion Gap BUN POC Glucose 230 H Random Glucose Hemoglobin A1c % ALT Assessment and Plan (1) Acute respiratory failure with hypoxia and hypercapnia: Status: Acute (2) Pneumonia: Status: Acute (3) History of chronic carbon dioxide retention: Status: Acute Plan Impression: 49-year-old lady admitted with subacute dyspnea with acute hypoxia and acute on chronic hypercapnia likely secondary to combination of pneumonia, COPD, obesity hypoventilation syndrome with chronic CO2 retention. CT angio chest reviewed, no evidence of pulmonary emboli. Venous blood gases with chronic compensated respiratory acidosis. Recommendation: Agree with empiric coverage for community-acquired pneumonia, treatment with systemic glucocorticoids and nebulized bronchodilators. Would consider addition of scheduled acetazolamide IV b.i.d. Procedures Date of Service Date of Service: 01/14/25
[2025-01-14 16:35] LABS: Glucose, Whole Blood 281 mg/dL (60-115)
[2025-01-14 20:11] LABS: Glucose, Whole Blood 238 mg/dL (60-115)
[2025-01-14] MEDS: risperiDONE 2 MG TABLET 4 MG PO (20:59)
[2025-01-14] MEDS: Divalproex Sodium ER 500 MG TAB.ER.24H 1000 MG PO (20:59)
[2025-01-14] MEDS: Enoxaparin Sodium 40 MG/0.4 ML SYRINGE SUBCUT (20:59)
[2025-01-14] MEDS: cloZAPine 100 MG TABLET 200 MG PO (21:29)
[2025-01-15] VITALS (9 sets, daily range): BP systolic 118–152; BP diastolic 55–69; PULSE 85–95; RESP 14–20; TEMP 36.3–37.4; O2SAT 91–94
[2025-01-15 05:48] LABS: MANUAL DIFF FLAG NO; Venous Blood Gas Refer to POC result
[2025-01-15 05:51] LABS: Basophils Percent Auto 0.1 % (0-2); Hematocrit 40.5 % (37.0-47.0); Hemoglobin 12.6 g/dl (12.0-16.0); Imm Gran Abs Auto 0.09 X10*3/uL (0.00-0.03); Imm Gran Pct Auto 0.9 % (0.0-0.4); Lymphocytes Absolute Auto 1.2 X10*3/uL (1.2-4.9); Lymphocytes Percent Auto 11.8 % (20-40); Mean Corpuscular HGB Conc 31.1 g/dl (31.0-35.0); Mean Corpuscular Hemoglobin 30.1 pg (27.0-33.0); Mean Corpuscular Volume 96.9 fL (80.0-98.0); Mean Platelet Volume 9.7 fL (9.4-12.3); Monocytes Absolute Auto 0.4 X10*3/uL (0.1-1.2); Monocytes Percent Auto 3.7 % (2-11); Neutrophils Absolute Auto 8.7 x10*3/uL (2.0-8.3); Neutrophils Percent Auto 83.5 % (45-73); Platelet Count 232 X10*3/uL (160-400); Red Blood Count 4.18 X10*6/uL (4.20-5.50); Red Cell Distribution Width 14.1 % (11.0-16.0); White Blood Count 10.4 X10*3/uL (4.8-10.8)
[2025-01-15 05:52] LABS: VBG Base Excess 5.7 mmol/L; VBG HCO3 35 mmol/L (22-26); VBG pCO2 74 mmHg; VBG pH 7.27 (7.32-7.43); VBG pO2 83 mmHg
[2025-01-15 06:10] LABS: Alanine Aminotransferase 30 U/L (0-31); Albumin Level 3.3 g/dL (3.5-5.0); Alkaline Phosphatase 79 U/L (39-117); Anion Gap 12 (12-20); Aspartate Amino Transferase 14 U/L (5-31); Bilirubin Direct 0.2 mg/dL (0.0-0.5); Bilirubin Total 0.3 mg/dL (0.0-1.0); Blood Urea Nitrogen 10 mg/dL (9-16); Calcium 9.3 mg/dL (8.4-10.2); Carbon Dioxide 30 mmol/L (22-29); Chloride 104 mmol/L (96-108); Creatinine Clr Calc Pharmacy 122.5; Estimated Glomerular Filt Rate > 60; Glucose Random 316 mg/dL (60-115); Potassium 4.5 mmol/L (3.3-5.1); Sodium 141 mmol/L (135-145); Total Protein 6.2 g/dL (6.5-8.0)
[2025-01-15 07:20] LABS: Glucose, Whole Blood 269 mg/dL (60-115)
[2025-01-15] MEDS: Insulin Lispro 100 UNIT/ML 3 ML VIAL SUBCUT ×4 (09:05→21:24)
--- NOTE | 2025-01-15 10:51 | HO.PM.IMPN ---
Subjective Subjective Date of Service: 01/15/25 Interval History: sob a bit improved Physical Exam Vital Signs: Vital Signs: Last Vital Signs Temp 97.4 F 01/15/25 07:48 Pulse 87 01/15/25 07:48 Resp 18 01/15/25 07:54 BP 130/60 01/15/25 07:48 Pulse Ox 94 01/15/25 07:48 O2 Del Method Room Air 01/15/25 07:48 O2 Flow Rate 45 01/15/25 03:23 FiO2 70 01/14/25 12:00 Oxygen Flow Rate 10 01/13/25 16:06 BMI result Body Mass Index 36.2 Const: General: no acute distress, alert and awake Nutritional Appearance: not obese HEENT: Head: Yes atraumatic Eyes: General: appearance normal, both eyes and all related structures Sclerae: sclerae normal EOM: EOMs intact bilaterally Neck: Neck: Yes supple Lymphatic: no lymphadenopathy noted Resp: Effort & Inspection: normal respiratory effort and no use of accessory muscles Auscultation: clear to auscultation bilaterally Cardio: Rate: regular rate Rhythm: regular rhythm Heart sounds: no gallops, no murmurs and no rubs GI: Palpation (GI): Soft to palpation and Other GI palpation findings present ( Nontender) Auscultation: normal bowel sounds Skin: General skin exam: other ( warm) Extrem: General: No clubbing, No cyanosis and No edema Objective Data Active Medications Acetaminophen (Acetaminophen 325 Mg Tablet) 975 mg PO Q6H PRN PRN Reason: Pain, Mild 1-3,fever,headache Benzonatate (Benzonatate 100 Mg Capsule) 100 mg PO TID PRN PRN Reason: Cough Calcium Carbonate (Calcium Carbonate 750 Mg Tab.Chew) 750 mg PO Q4H PRN PRN Reason: Heartburn Ceftriaxone Sodium (Ceftriaxone Sodium 1 Gm Vial) 1 gm IVPUSH Q24H [facility] Last Admin: 01/14/25 15:24 Dose: 1 gm Documented By: ALLISON Clozapine (Clozapine 100 Mg Tablet) 200 mg PO BEDTIME [facility] Last Admin: 01/14/25 21:29 Dose: 200 mg Documented By: ZACH Levalbuterol HCl 2.5 mg/ (Ipratropium [place] 0.5 mg) 0 mg INHALE Q4H PRN PRN Reason: Shortness of Breath/Wheezing Dextrose (Dextrose 50 % 25 Gm/50 Ml Syringe) 25 gm IVPUSH Q15M PRN; Protocol PRN Reason: per Hypoglycemia Standing Ord. Divalproex Sodium (Divalproex Sodium Er 500 Mg Tab.Er.24h) 1,000 mg PO BEDTIME [facility] Last Admin: 01/14/25 20:59 Dose: 1,000 mg Documented By: ZACH Enoxaparin Sodium (Enoxaparin Sodium 40 Mg/0.4 Ml Syringe) 40 mg SUBCUT Q24H [facility] Last Admin: 01/14/25 20:59 Dose: 40 mg Documented By: ZACH Glucose (Glucose Gel 15 Gm Gel..Gram.) 15 gm PO Q15M PRN; Protocol PRN Reason: per Hypoglycemia Standing Ord. Doxycycline Hyclate 100 mg/ (Sodium Chloride) 250 mls @ 166.67 mls/hr IV Q12H [facility] Last Infusion: 01/14/25 22:47 Dose: Infused Documented By: ZACH Insulin Human Lispro (Insulin Lispro 100 Unit/Ml 3 Ml Vial) 0 unit SUBCUT QIDACHS [facility]; Protocol Last Admin: 01/14/25 20:59 Dose: 4 unit Documented By: ZACH Lisinopril (Lisinopril 5 Mg Tablet) 5 mg PO DAILY [facility]; Protocol Last Admin: 01/14/25 10:41 Dose: 5 mg Documented By: ALLISON Magnesium Hydroxide (Milk Of Magnesia 30 Ml Oral.Susp) 30 ml PO DAILY PRN PRN Reason: Constipation Melatonin (Melatonin 3 Mg Tablet) 6 mg PO BEDTIME PRN PRN Reason: Insomnia Methylprednisolone Sodium Succinate (Methylprednisolone Sod Succ 40 Mg/Ml Vial) 40 mg IVPUSH Q12H [facility] Last Admin: 01/14/25 22:46 Dose: 40 mg Documented By: ZACH Nicotine (Nicotine 21 Mg Patch.Td24) 21 mg TRANSDERMA DAILY [facility] Last Admin: 01/14/25 10:32 Dose: Not Given Documented By: ALLISON Non-Admin Reason: Patient Refused Ondansetron HCl (Ondansetron Hcl 4 Mg/2 Ml Vial) 4 mg IVPUSH Q8H PRN PRN Reason: Nausea and Vomiting Oxycodone HCl (Oxycodone Hcl Immed Release 5 Mg Tablet) 5 mg PO Q6H PRN PRN Reason: Pain, Moderate(Pain Scale 4-6) Pravastatin Sodium (Pravastatin Sodium 40 Mg Tablet) 40 mg PO DAILY [facility] Last Admin: 01/14/25 10:32 Dose: 40 mg Documented By: ALLISON Risperidone (Risperidone 2 Mg Tablet) 4 mg PO BEDTIME [facility] Last Admin: 01/14/25 20:59 Dose: 4 mg Documented By: ZACH Sodium Chloride (0.9 % Sodium Chloride Flush 3 Ml Syringe) 3 ml IVFLUSH QSHIFT [facility] Last Admin: 01/14/25 21:08 Dose: 3 ml Documented By: ZACH Labs 01/15/25 05:43 01/15/25 05:43 Labs: Laboratory Results - last 24 hr 01/14/25 01/14/25 01/14/25 11:07 16:30 20:00 MCV MCH MCHC RDW Plt Count MPV Immature Gran % (Auto) Neut % (Auto) Lymph % (Auto) [place] % (Auto) Eos % (Auto) Baso % (Auto) Lymph # (Auto) [place] # (Auto) Eos # (Auto) Baso # (Auto) Abs Immat Gran (auto) Absolute Neuts (auto) Absolute Nucleated RBC Nucleated RBC % (auto) VBG pH VBG pCO2 VBG pO2 VBG HCO3 VBG O2 Saturation VBG Base Excess Anion Gap Estim Creat Clear Calc Estimated GFR POC Glucose 230 H 281 H 238 H Random Glucose Calcium Magnesium Total Bilirubin Direct Bilirubin AST ALT Alkaline Phosphatase Total Protein Albumin 01/15/25 01/15/25 01/15/25 05:43 05:47 07:11 MCV 96.9 MCH 30.1 MCHC 31.1 RDW 14.1 Plt Count 232 MPV 9.7 Immature Gran % (Auto) 0.9 H Neut % (Auto) 83.5 H Lymph % (Auto) 11.8 L [place] % (Auto) 3.7 Eos % (Auto) 0.0 Baso % (Auto) 0.1 Lymph # (Auto) 1.2 [place] # (Auto) 0.4 Eos # (Auto) 0.0 Baso # (Auto) 0.0 Abs Immat Gran (auto) 0.09 H Absolute Neuts (auto) 8.7 H Absolute Nucleated RBC 0.000 Nucleated RBC % (auto) 0.0 VBG pH 7.27 L VBG pCO2 74 VBG pO2 83 VBG HCO3 35 H VBG O2 Saturation 97.0 VBG Base Excess 5.7 Anion Gap 12 Estim Creat Clear Calc 122.5 Estimated GFR > 60 POC Glucose 269 H Random Glucose 316 H Calcium 9.3 D Magnesium 2.0 Total Bilirubin 0.3 Direct Bilirubin 0.2 AST 14 ALT 30 Alkaline Phosphatase 79 Total Protein 6.2 L Albumin 3.3 L Microbiology Microbiology Results: Microbiology 01/13/25 16:43 Blood Culture - Preliminary Blood - Venous No growth after 24 hours. 01/13/25 16:35 Blood Culture - Preliminary Blood - Venous No growth after 24 hours. Assessment and Plan (1) Type 2 diabetes mellitus without complications: Status: Acute Plan 49F PMH morbid obesity, hypertension, mood disorder, diabetes, hyperlipidemia presented with shortness of breath Sepsis and acute hypoxic and hypercapnic respiratory failure Multifactorial Pneumonia-continue ceftriaxone doxycycline Undiagnosed COPD with acute decompensation-continue steroids, pulm appreciated - given 3 doses diamox wean o2 as tolerated mood disorder clozapine, depakote, risperdal htn lisinopril hld statin obesity wegith loss dvt prophylaxis -lovenox full code reason for continued hospitalization:hypoxia Quality Stroke Does the patient have a stroke diagnosis?: No VTE Prior VTE?: No VTE Risk Level:: Medical - moderate - high VTE Device Contraindication: Treatment Not Indicated VTE Drug Contraindication: N/A - Med Ordered
[2025-01-15] MEDS: acetaZOLAMIDE sodium 500 MG VIAL IVPUSH (11:04)
[2025-01-15] MEDS: 0.9 % Sodium Chloride Flush 3 ML SYRINGE IVFLUSH ×2 (11:04→18:18)
[2025-01-15] MEDS: methylPREDNISolone Sod Succ 40 MG/ML VIAL IVPUSH ×2 (11:04→22:35)
[2025-01-15] MEDS: Doxycycline Hyclate 100 MG in 0.9 % Sodium Chloride 250 ML 166.67 MG IV ×2 (11:04→21:24)
[2025-01-15 11:17] LABS: Glucose, Whole Blood 258 mg/dL (60-115)
[2025-01-15] MEDS: Pravastatin Sodium 40 MG TABLET PO (11:17)
[2025-01-15] MEDS: lisinopriL 5 MG TABLET PO (11:23)
--- NOTE | 2025-01-15 13:31 | MHC.CM.PN ---
LATE ENTRY: CM attempted to address IMM with Patient on 01/14/2025, but Patient at that time did not appear to fully understand so IMM was addressed with only Contact/Mother/Ember, via a voice message left @ [phone]. CM met with Patient again today, who still appeared to have some difficulty responding to questions. With Patient's permission, CM spoke with Mother/Ember at listed #. Patient lives alone in an apartment with services from [facility] ([facility] for med set up). Per Mother, Patient's [facility] Worker is Yariel Resendez @ [phone]. Patient's goal is to return home with said services and CM has initiated and will follow for dc planning.PCP is Dr. Scooter Amador and Mother or Daughter will transport at time of dc.
[2025-01-15 16:24] LABS: Glucose, Whole Blood 288 mg/dL (60-115)
[2025-01-15] MEDS: cefTRIAXone sodium 1 GM VIAL IVPUSH (18:17)
[2025-01-15 21:02] LABS: Glucose, Whole Blood 288 mg/dL (60-115)
[2025-01-15] MEDS: risperiDONE 2 MG TABLET 4 MG PO (21:23)
[2025-01-15] MEDS: Enoxaparin Sodium 40 MG/0.4 ML SYRINGE SUBCUT (21:23)
[2025-01-15] MEDS: cloZAPine 100 MG TABLET 200 MG PO (21:23)
[2025-01-15] MEDS: Divalproex Sodium ER 500 MG TAB.ER.24H 1000 MG PO (21:37)
[2025-01-16 03:16] VITALS: BP 125/83; PULSE 100; RESP 18; TEMP 36.4; O2SAT 95
[2025-01-16 07:00] LABS: MANUAL DIFF FLAG NO
[2025-01-16 07:08] VITALS: BP 149/71; PULSE 91; RESP 18; TEMP 36.6; O2SAT 90
[2025-01-16 07:19] LABS: Glucose, Whole Blood 318 mg/dL (60-115)
[2025-01-16 07:23] LABS: Basophils Percent Auto 0.3 % (0-2); Hematocrit 40.8 % (37.0-47.0); Hemoglobin 12.7 g/dl (12.0-16.0); Imm Gran Pct Auto 1.1 % (0.0-0.4); Lymphocytes Absolute Auto 1.6 X10*3/uL (1.2-4.9); Lymphocytes Percent Auto 17.3 % (20-40); Mean Corpuscular HGB Conc 31.1 g/dl (31.0-35.0); Mean Corpuscular Hemoglobin 29.5 pg (27.0-33.0); Mean Corpuscular Volume 94.9 fL (80.0-98.0); Mean Platelet Volume 10.2 fL (9.4-12.3); Monocytes Absolute Auto 0.4 X10*3/uL (0.1-1.2); Monocytes Percent Auto 4.2 % (2-11); Neutrophils Percent Auto 77.1 % (45-73); Platelet Count 277 X10*3/uL (160-400); Red Cell Distribution Width 13.9 % (11.0-16.0)
[2025-01-16 07:25] LABS: Anion Gap 12 (12-20); Blood Urea Nitrogen 12 mg/dL (9-16); Calcium 8.9 mg/dL (8.4-10.2); Carbon Dioxide 27 mmol/L (22-29); Chloride 105 mmol/L (96-108); Creatinine Clr Calc Pharmacy 131.1; Estimated Glomerular Filt Rate > 60; Glucose Random 357 mg/dL (60-115); Potassium 4.4 mmol/L (3.3-5.1); Sodium 140 mmol/L (135-145)
[2025-01-16] MEDS: Insulin Lispro 100 UNIT/ML 3 ML VIAL SUBCUT ×4 (09:06→21:12)
[2025-01-16] MEDS: lisinopriL 5 MG TABLET PO (09:07)
[2025-01-16] MEDS: 0.9 % Sodium Chloride Flush 3 ML SYRINGE IVFLUSH ×3 (09:07→21:12)
[2025-01-16] MEDS: Pravastatin Sodium 40 MG TABLET PO (09:07)
[2025-01-16] MEDS: Doxycycline Hyclate 100 MG in 0.9 % Sodium Chloride 250 ML 166.67 MG IV (09:09)
--- NOTE | 2025-01-16 10:08 | P.PNIM_ITS ---
Subjective Subjective Date of Service: 01/16/25 Interval History: improving Physical Exam 2 Vital Signs: Vital Signs: Last Vital Signs Temp 97.8 F 01/16/25 07:08 Pulse 91 01/16/25 07:08 Resp 18 01/16/25 07:08 BP 149/71 H 01/16/25 07:08 Pulse Ox 90 L 01/16/25 07:08 O2 Del Method Nasal Cannula 01/16/25 07:08 O2 Flow Rate 3 01/16/25 07:08 FiO2 46 01/15/25 11:40 Oxygen Flow Rate 10 01/13/25 16:06 BMI result Body Mass Index 36.2 General: AO X 3, no acute distress Resp: wheezing bilateral, no accessory muscles used CVS: S1,S2,RRR GI: soft, non tender, non distended Neuro: motor grossly intact, alert Objective Data Active Medications Acetaminophen (Acetaminophen 325 Mg Tablet) 975 mg PO Q6H PRN PRN Reason: Pain, Mild 1-3,fever,headache Benzonatate (Benzonatate 100 Mg Capsule) 100 mg PO TID PRN PRN Reason: Cough Calcium Carbonate (Calcium Carbonate 750 Mg Tab.Chew) 750 mg PO Q4H PRN PRN Reason: Heartburn Ceftriaxone Sodium (Ceftriaxone Sodium 1 Gm Vial) 1 gm IVPUSH Q24H [facility] Last Admin: 01/15/25 18:17 Dose: 1 gm Documented By: ANJEL Clozapine (Clozapine 100 Mg Tablet) 200 mg PO BEDTIME [facility] Last Admin: 01/15/25 21:23 Dose: 200 mg Documented By: KIMI Levalbuterol HCl 2.5 mg/ (Ipratropium [place] 0.5 mg) 0 mg INHALE Q4H PRN PRN Reason: Shortness of Breath/Wheezing Dextrose (Dextrose 50 % 25 Gm/50 Ml Syringe) 25 gm IVPUSH Q15M PRN; Protocol PRN Reason: per Hypoglycemia Standing Ord. Divalproex Sodium (Divalproex Sodium Er 500 Mg Tab.Er.24h) 1,000 mg PO BEDTIME [facility] Last Admin: 01/15/25 21:37 Dose: 1,000 mg Documented By: KIMI Enoxaparin Sodium (Enoxaparin Sodium 40 Mg/0.4 Ml Syringe) 40 mg SUBCUT Q24H [facility] Last Admin: 01/15/25 21:23 Dose: 40 mg Documented By: KIMI Glucose (Glucose Gel 15 Gm Gel..Gram.) 15 gm PO Q15M PRN; Protocol PRN Reason: per Hypoglycemia Standing Ord. Doxycycline Hyclate 100 mg/ (Sodium Chloride) 250 mls @ 166.67 mls/hr IV Q12H [facility] Last Admin: 01/16/25 09:09 Dose: 166.67 mls/hr Documented By: ANJEL Insulin Human Lispro (Insulin Lispro 100 Unit/Ml 3 Ml Vial) 0 unit SUBCUT QIDACHS [facility]; Protocol Last Admin: 01/16/25 09:06 Dose: 10 unit Documented By: ANJEL Lisinopril (Lisinopril 5 Mg Tablet) 5 mg PO DAILY [facility]; Protocol Last Admin: 01/16/25 09:07 Dose: 5 mg Documented By: ANJEL Magnesium Hydroxide (Milk Of Magnesia 30 Ml Oral.Susp) 30 ml PO DAILY PRN PRN Reason: Constipation Melatonin (Melatonin 3 Mg Tablet) 6 mg PO BEDTIME PRN PRN Reason: Insomnia Methylprednisolone Sodium Succinate (Methylprednisolone Sod Succ 40 Mg/Ml Vial) 40 mg IVPUSH Q12H [facility] Last Admin: 01/15/25 22:35 Dose: 40 mg Documented By: KIMI Nicotine (Nicotine 21 Mg Patch.Td24) 21 mg TRANSDERMA DAILY [facility] Last Admin: 01/16/25 09:07 Dose: Not Given Documented By: ANJEL Non-Admin Reason: Patient Refused Ondansetron HCl (Ondansetron Hcl 4 Mg/2 Ml Vial) 4 mg IVPUSH Q8H PRN PRN Reason: Nausea and Vomiting Oxycodone HCl (Oxycodone Hcl Immed Release 5 Mg Tablet) 5 mg PO Q6H PRN PRN Reason: Pain, Moderate(Pain Scale 4-6) Pravastatin Sodium (Pravastatin Sodium 40 Mg Tablet) 40 mg PO DAILY [facility] Last Admin: 01/16/25 09:07 Dose: 40 mg Documented By: ANJEL Risperidone (Risperidone 2 Mg Tablet) 4 mg PO BEDTIME [facility] Last Admin: 01/15/25 21:23 Dose: 4 mg Documented By: KIMI Sodium Chloride (0.9 % Sodium Chloride Flush 3 Ml Syringe) 3 ml IVFLUSH QSHIFT [facility] Last Admin: 01/16/25 09:07 Dose: 3 ml Documented By: ANJEL Labs 01/16/25 06:10 01/16/25 06:10 Labs: Laboratory Results - last 24 hr 01/15/25 01/15/25 01/15/25 11:10 16:19 20:48 MCV MCH MCHC RDW Plt Count MPV Immature Gran % (Auto) Neut % (Auto) Lymph % (Auto) [place] % (Auto) Eos % (Auto) Baso % (Auto) Lymph # (Auto) [place] # (Auto) Eos # (Auto) Baso # (Auto) Abs Immat Gran (auto) Absolute Neuts (auto) Absolute Nucleated RBC Nucleated RBC % (auto) Anion Gap Estim Creat Clear Calc Estimated GFR POC Glucose 258 H 288 H 288 H Random Glucose Calcium 01/16/25 01/16/25 06:10 07:06 MCV 94.9 MCH 29.5 MCHC 31.1 RDW 13.9 Plt Count 277 MPV 10.2 Immature Gran % (Auto) 1.1 H Neut % (Auto) 77.1 H Lymph % (Auto) 17.3 L [place] % (Auto) 4.2 Eos % (Auto) 0.0 Baso % (Auto) 0.3 Lymph # (Auto) 1.6 [place] # (Auto) 0.4 Eos # (Auto) 0.0 Baso # (Auto) 0.0 Abs Immat Gran (auto) 0.10 H Absolute Neuts (auto) 7.0 Absolute Nucleated RBC 0.000 Nucleated RBC % (auto) 0.0 Anion Gap 12 Estim Creat Clear Calc 131.1 Estimated GFR > 60 POC Glucose 318 H Random Glucose 357 H* Calcium 8.9 Microbiology Microbiology Results: Microbiology 01/13/25 16:43 Blood Culture - Preliminary Blood - Venous No growth after 48 hours. 01/13/25 16:35 Blood Culture - Preliminary Blood - Venous No growth after 48 hours. Assessment and Plan (1) Type 2 diabetes mellitus without complications: Status: Acute Plan 49F PMH morbid obesity, hypertension, mood disorder, diabetes, hyperlipidemia presented with shortness of breath Sepsis and acute hypoxic and hypercapnic respiratory failure Multifactorial Pneumonia-continue ceftriaxone doxycycline Undiagnosed COPD with acute decompensation-continue steroids, pulm appreciated - given 3 doses diamox wean o2 as tolerated - now off high flow, down to 3L mood disorder clozapine, depakote, risperdal htn lisinopril hld statin obesity wegith loss dvt prophylaxis -lovenox full code reason for continued hospitalization:hypoxia Quality Stroke Does the patient have a stroke diagnosis?: No VTE Prior VTE?: No VTE Risk Level:: Medical - moderate - high VTE Device Contraindication: Treatment Not Indicated VTE Drug Contraindication: N/A - Med Ordered
--- NOTE | 2025-01-16 10:35 | MHC.CM.PN ---
Per ROUNDS discussion, Patient is improving but still acute and not medically cleared for dc (2 IV ABT, IV Solu Medrol, 3LO2); home is the goal and CM will continue to follow.
[2025-01-16 10:53] VITALS: BP 130/60; PULSE 86; RESP 16; TEMP 36.7; O2SAT 95
[2025-01-16 11:03] LABS: Glucose, Whole Blood 231 mg/dL (60-115)
[2025-01-16] MEDS: methylPREDNISolone Sod Succ 40 MG/ML VIAL IVPUSH (13:24)
[2025-01-16 15:47] VITALS: BP 167/80; PULSE 93; RESP 18; TEMP 36.1; O2SAT 91
[2025-01-16 16:21] LABS: Glucose, Whole Blood 259 mg/dL (60-115)
[2025-01-16] MEDS: Benzonatate 100 MG CAPSULE PO (17:02)
[2025-01-16] MEDS: cefTRIAXone sodium 1 GM VIAL IVPUSH (17:02)
[2025-01-16 18:54] VITALS: BP 156/74; PULSE 93; RESP 18; TEMP 36.8; O2SAT 93
[2025-01-16 20:15] LABS: Glucose, Whole Blood 280 mg/dL (60-115)
[2025-01-16] MEDS: risperiDONE 2 MG TABLET 4 MG PO (21:11)
[2025-01-16] MEDS: Enoxaparin Sodium 40 MG/0.4 ML SYRINGE SUBCUT (21:11)
[2025-01-16] MEDS: cloZAPine 100 MG TABLET 200 MG PO (21:11)
[2025-01-16] MEDS: Divalproex Sodium ER 500 MG TAB.ER.24H 1000 MG PO (21:11)
[2025-01-16] MEDS: Doxycycline Monohydrate 100 MG CAPSULE PO (21:12)
[2025-01-17] VITALS (8 sets, daily range): BP systolic 127–175; BP diastolic 56–80; PULSE 78–92; RESP 18–20; TEMP 36–36.9; O2SAT 90–97
[2025-01-17] MEDS: methylPREDNISolone Sod Succ 40 MG/ML VIAL IVPUSH ×3 (00:35→22:51)
[2025-01-17 07:12] LABS: VBG Base Excess 11.9 mmol/L; VBG HCO3 41 mmol/L (22-26); VBG pCO2 74 mmHg; VBG pH 7.34 (7.32-7.43); VBG pO2 76 mmHg
[2025-01-17 07:17] LABS: Anion Gap 12 (12-20); Blood Urea Nitrogen 10 mg/dL (9-16); Calcium 9.1 mg/dL (8.4-10.2); Chloride 100 mmol/L (96-108); Creatinine Clr Calc Pharmacy 135.8; Estimated Glomerular Filt Rate > 60; Glucose Random 306 mg/dL (60-115); Potassium 4.5 mmol/L (3.3-5.1); Sodium 141 mmol/L (135-145)
[2025-01-17 07:18] LABS: Hematocrit 43.6 % (37.0-47.0); Hemoglobin 14.2 g/dl (12.0-16.0); Mean Corpuscular HGB Conc 32.6 g/dl (31.0-35.0); Mean Corpuscular Hemoglobin 29.8 pg (27.0-33.0); Mean Corpuscular Volume 91.4 fL (80.0-98.0); Platelet Count 274 X10*3/uL (160-400); Red Blood Count 4.77 X10*6/uL (4.20-5.50); Red Cell Distribution Width 13.8 % (11.0-16.0); White Blood Count 6.7 X10*3/uL (4.8-10.8)
[2025-01-17 07:20] LABS: Venous Blood Gas Refer to POC result
[2025-01-17 07:35] LABS: Carbon Dioxide 34 mmol/L (22-29)
[2025-01-17 07:48] LABS: Glucose, Whole Blood 279 mg/dL (60-115)
[2025-01-17] MEDS: Doxycycline Monohydrate 100 MG CAPSULE PO ×2 (08:14→20:57)
[2025-01-17] MEDS: 0.9 % Sodium Chloride Flush 3 ML SYRINGE IVFLUSH ×2 (08:15→17:12)
[2025-01-17] MEDS: Insulin Lispro 100 UNIT/ML 3 ML VIAL SUBCUT ×4 (08:15→20:56)
[2025-01-17] MEDS: lisinopriL 5 MG TABLET PO (08:15)
[2025-01-17] MEDS: Pravastatin Sodium 40 MG TABLET PO (10:02)
--- NOTE | 2025-01-17 10:14 | P.PNIM_ITS ---
Subjective Subjective Date of Service: 01/17/25 Interval History: Feeling a little better every day Physical Exam 2 Vital Signs: Vital Signs: Last Vital Signs Temp 97.3 F 01/17/25 07:21 Pulse 90 01/17/25 07:21 Resp 20 01/17/25 07:21 BP 137/56 L 01/17/25 07:21 Pulse Ox 90 L 01/17/25 07:21 O2 Del Method Nasal Cannula 01/17/25 07:21 O2 Flow Rate 2 01/17/25 07:21 FiO2 46 01/15/25 11:40 Oxygen Flow Rate 10 01/13/25 16:06 BMI result Body Mass Index 36.2 General: AO X 3, no acute distress Resp: wheezing bilateral, no accessory muscles used CVS: S1,S2,RRR GI: soft, non tender, non distended Neuro: motor grossly intact, alert Objective Data Active Medications Acetaminophen (Acetaminophen 325 Mg Tablet) 975 mg PO Q6H PRN PRN Reason: Pain, Mild 1-3,fever,headache Benzonatate (Benzonatate 100 Mg Capsule) 100 mg PO TID PRN PRN Reason: Cough Last Admin: 01/16/25 17:02 Dose: 100 mg Documented By: ANJEL Calcium Carbonate (Calcium Carbonate 750 Mg Tab.Chew) 750 mg PO Q4H PRN PRN Reason: Heartburn Ceftriaxone Sodium (Ceftriaxone Sodium 1 Gm Vial) 1 gm IVPUSH Q24H [facility] Last Admin: 01/16/25 17:02 Dose: 1 gm Documented By: ANJEL Clozapine (Clozapine 100 Mg Tablet) 200 mg PO BEDTIME [facility] Last Admin: 01/16/25 21:11 Dose: 200 mg Documented By: DEONDRE Levalbuterol HCl 2.5 mg/ (Ipratropium [place] 0.5 mg) 0 mg INHALE Q4H PRN PRN Reason: Shortness of Breath/Wheezing Dextrose (Dextrose 50 % 25 Gm/50 Ml Syringe) 25 gm IVPUSH Q15M PRN; Protocol PRN Reason: per Hypoglycemia Standing Ord. Divalproex Sodium (Divalproex Sodium Er 500 Mg Tab.Er.24h) 1,000 mg PO BEDTIME [facility] Last Admin: 01/16/25 21:11 Dose: 1,000 mg Documented By: JACKLYNOINYaneth Doxycycline Monohydrate (Doxycycline Monohydrate 100 Mg Capsule) 100 mg PO Q12H [facility] Last Admin: 01/17/25 08:14 Dose: 100 mg Documented By: DIA Enoxaparin Sodium (Enoxaparin Sodium 40 Mg/0.4 Ml Syringe) 40 mg SUBCUT Q24H [facility] Last Admin: 01/16/25 21:11 Dose: 40 mg Documented By: ANTOINC Glucose (Glucose Gel 15 Gm Gel..Gram.) 15 gm PO Q15M PRN; Protocol PRN Reason: per Hypoglycemia Standing Ord. Insulin Human Lispro (Insulin Lispro 100 Unit/Ml 3 Ml Vial) 0 unit SUBCUT QIDACHS [facility]; Protocol Last Admin: 01/17/25 08:15 Dose: 6 unit Documented By: DIA Lisinopril (Lisinopril 5 Mg Tablet) 5 mg PO DAILY [facility]; Protocol Last Admin: 01/17/25 08:15 Dose: 5 mg Documented By: DIA Magnesium Hydroxide (Milk Of Magnesia 30 Ml Oral.Susp) 30 ml PO DAILY PRN PRN Reason: Constipation Melatonin (Melatonin 3 Mg Tablet) 6 mg PO BEDTIME PRN PRN Reason: Insomnia Methylprednisolone Sodium Succinate (Methylprednisolone Sod Succ 40 Mg/Ml Vial) 40 mg IVPUSH Q12H [facility] Last Admin: 01/17/25 10:02 Dose: 40 mg Documented By: DIA Nicotine (Nicotine 21 Mg Patch.Td24) 21 mg TRANSDERMA DAILY [facility] Last Admin: 01/17/25 08:26 Dose: Not Given Documented By: DIA Non-Admin Reason: Patient Refused Ondansetron HCl (Ondansetron Hcl 4 Mg/2 Ml Vial) 4 mg IVPUSH Q8H PRN PRN Reason: Nausea and Vomiting Oxycodone HCl (Oxycodone Hcl Immed Release 5 Mg Tablet) 5 mg PO Q6H PRN PRN Reason: Pain, Moderate(Pain Scale 4-6) Pravastatin Sodium (Pravastatin Sodium 40 Mg Tablet) 40 mg PO DAILY [facility] Last Admin: 01/17/25 10:02 Dose: 40 mg Documented By: DIA Risperidone (Risperidone 2 Mg Tablet) 4 mg PO BEDTIME [facility] Last Admin: 01/16/25 21:11 Dose: 4 mg Documented By: JACKLYNOINC Sodium Chloride (0.9 % Sodium Chloride Flush 3 Ml Syringe) 3 ml IVFLUSH QSHIFT [facility] Last Admin: 01/17/25 08:15 Dose: 3 ml Documented By: DIA Labs 01/17/25 06:46 01/17/25 06:46 Labs: Laboratory Results - last 24 hr 01/16/25 01/16/25 01/16/25 10:58 16:17 20:05 MCV MCH MCHC RDW Plt Count MPV Absolute Nucleated RBC Nucleated RBC % (auto) VBG pH VBG pCO2 VBG pO2 VBG HCO3 VBG O2 Saturation VBG Base Excess Anion Gap Estim Creat Clear Calc Estimated GFR POC Glucose 231 H 259 H 280 H Random Glucose Calcium 01/17/25 01/17/25 01/17/25 06:46 06:58 07:28 MCV 91.4 MCH 29.8 MCHC 32.6 RDW 13.8 Plt Count 274 MPV 10.0 Absolute Nucleated RBC 0.000 Nucleated RBC % (auto) 0.0 VBG pH 7.34 VBG pCO2 74 VBG pO2 76 VBG HCO3 41 H VBG O2 Saturation 95.0 VBG Base Excess 11.9 Anion Gap 12 Estim Creat Clear Calc 135.8 Estimated GFR > 60 POC Glucose 279 H Random Glucose 306 H Calcium 9.1 Assessment and Plan (1) Type 2 diabetes mellitus without complications: Status: Acute Plan 49F PMH morbid obesity, hypertension, mood disorder, diabetes, hyperlipidemia presented with shortness of breath Sepsis and acute hypoxic and hypercapnic respiratory failure Multifactorial Pneumonia-continue ceftriaxone doxycycline Undiagnosed COPD with acute decompensation-continue steroids, pulm appreciated - given 3 doses diamox wean o2 as tolerated - now off high flow, down to 2L mood disorder clozapine, depakote, risperdal htn lisinopril hld statin obesity wegith loss dvt prophylaxis -lovenox full code reason for continued hospitalization:hypoxia Quality Stroke Does the patient have a stroke diagnosis?: No VTE Prior VTE?: No VTE Risk Level:: Medical - moderate - high VTE Device Contraindication: Treatment Not Indicated VTE Drug Contraindication: N/A - Med Ordered
[2025-01-17 11:43] LABS: Glucose, Whole Blood 287 mg/dL (60-115)
[2025-01-17 16:39] LABS: Glucose, Whole Blood 418 mg/dL (60-115)
[2025-01-17 16:40] LABS: Glucose, Whole Blood 444 mg/dL (60-115)
[2025-01-17] MEDS: cefTRIAXone sodium 1 GM VIAL IVPUSH (17:12)
[2025-01-17] MEDS: Insulin Lispro 100 UNIT/ML 3 ML VIAL 10 UNIT SUBCUT (17:13)
[2025-01-17 19:21] LABS: Glucose, Whole Blood 364 mg/dL (60-115)
[2025-01-17] MEDS: Enoxaparin Sodium 40 MG/0.4 ML SYRINGE SUBCUT (20:55)
[2025-01-17] MEDS: Divalproex Sodium ER 500 MG TAB.ER.24H 1000 MG PO (20:57)
[2025-01-17] MEDS: cloZAPine 100 MG TABLET 200 MG PO (20:57)
[2025-01-17] MEDS: risperiDONE 2 MG TABLET 4 MG PO (20:57)
[2025-01-18 02:59] VITALS: BP 162/75; PULSE 79; RESP 18; TEMP 36.4; O2SAT 92
[2025-01-18 07:12] VITALS: BP 137/58; PULSE 89; RESP 14; TEMP 36.4; O2SAT 92
[2025-01-18 07:12] LABS: Glucose, Whole Blood 352 mg/dL (60-115)
[2025-01-18] MEDS: Pravastatin Sodium 40 MG TABLET PO (07:58)
[2025-01-18] MEDS: lisinopriL 5 MG TABLET PO (07:58)
[2025-01-18] MEDS: Doxycycline Monohydrate 100 MG CAPSULE PO ×2 (07:58→20:21)
[2025-01-18] MEDS: predniSONE 20 MG TABLET 40 MG PO (07:58)
[2025-01-18] MEDS: Insulin Lispro 100 UNIT/ML 3 ML VIAL SUBCUT ×4 (07:59→22:17)
[2025-01-18] MEDS: 0.9 % Sodium Chloride Flush 3 ML SYRINGE IVFLUSH ×2 (09:39→17:04)
--- NOTE | 2025-01-18 09:55 | P.PNIM_ITS ---
Subjective Subjective Date of Service: 01/18/25 Interval History: Still needing 2 L, shortness breath improving Physical Exam 2 Vital Signs: Vital Signs: Last Vital Signs Temp 97.6 F 01/18/25 07:12 Pulse 89 01/18/25 07:12 Resp 14 01/18/25 07:12 BP 137/58 L 01/18/25 07:12 Pulse Ox 92 01/18/25 07:12 O2 Del Method Nasal Cannula 01/18/25 07:12 O2 Flow Rate 2 01/18/25 07:12 FiO2 46 01/15/25 11:40 Oxygen Flow Rate 10 01/13/25 16:06 BMI result Body Mass Index 36.2 General: AO X 3, no acute distress Resp: Improved wheezing bilateral, no accessory muscles used CVS: S1,S2,RRR GI: soft, non tender, non distended Neuro: motor grossly intact, alert Objective Data Active Medications Acetaminophen (Acetaminophen 325 Mg Tablet) 975 mg PO Q6H PRN PRN Reason: Pain, Mild 1-3,fever,headache Benzonatate (Benzonatate 100 Mg Capsule) 100 mg PO TID PRN PRN Reason: Cough Last Admin: 01/16/25 17:02 Dose: 100 mg Documented By: ANJEL Calcium Carbonate (Calcium Carbonate 750 Mg Tab.Chew) 750 mg PO Q4H PRN PRN Reason: Heartburn Ceftriaxone Sodium (Ceftriaxone Sodium 1 Gm Vial) 1 gm IVPUSH Q24H [facility] Last Admin: 01/17/25 17:12 Dose: 1 gm Documented By: DIA Clozapine (Clozapine 100 Mg Tablet) 200 mg PO BEDTIME [facility] Last Admin: 01/17/25 20:57 Dose: 200 mg Documented By: JUAN Levalbuterol HCl 2.5 mg/ (Ipratropium [place] 0.5 mg) 0 mg INHALE Q4H PRN PRN Reason: Shortness of Breath/Wheezing Dextrose (Dextrose 50 % 25 Gm/50 Ml Syringe) 25 gm IVPUSH Q15M PRN; Protocol PRN Reason: per Hypoglycemia Standing Ord. Divalproex Sodium (Divalproex Sodium Er 500 Mg Tab.Er.24h) 1,000 mg PO BEDTIME [facility] Last Admin: 01/17/25 20:57 Dose: 1,000 mg Documented By: JUAN Doxycycline Monohydrate (Doxycycline Monohydrate 100 Mg Capsule) 100 mg PO Q12H [facility] Last Admin: 01/18/25 07:58 Dose: 100 mg Documented By: DIA Enoxaparin Sodium (Enoxaparin Sodium 40 Mg/0.4 Ml Syringe) 40 mg SUBCUT Q24H [facility] Last Admin: 01/17/25 20:55 Dose: 40 mg Documented By: JUAN Glucose (Glucose Gel 15 Gm Gel..Gram.) 15 gm PO Q15M PRN; Protocol PRN Reason: per Hypoglycemia Standing Ord. Insulin Human Lispro (Insulin Lispro 100 Unit/Ml 3 Ml Vial) 0 unit SUBCUT QIDACHS [facility]; Protocol Last Admin: 01/18/25 07:59 Dose: 10 unit Documented By: DIA Lisinopril (Lisinopril 5 Mg Tablet) 5 mg PO DAILY [facility]; Protocol Last Admin: 01/18/25 07:58 Dose: 5 mg Documented By: DIA Magnesium Hydroxide (Milk Of Magnesia 30 Ml Oral.Susp) 30 ml PO DAILY PRN PRN Reason: Constipation Melatonin (Melatonin 3 Mg Tablet) 6 mg PO BEDTIME PRN PRN Reason: Insomnia Nicotine (Nicotine 21 Mg Patch.Td24) 21 mg TRANSDERMA DAILY [facility] Last Admin: 01/18/25 09:40 Dose: Not Given Documented By: DIA Non-Admin Reason: Patient Refused Ondansetron HCl (Ondansetron Hcl 4 Mg/2 Ml Vial) 4 mg IVPUSH Q8H PRN PRN Reason: Nausea and Vomiting Oxycodone HCl (Oxycodone Hcl Immed Release 5 Mg Tablet) 5 mg PO Q6H PRN PRN Reason: Pain, Moderate(Pain Scale 4-6) Pravastatin Sodium (Pravastatin Sodium 40 Mg Tablet) 40 mg PO DAILY [facility] Last Admin: 01/18/25 07:58 Dose: 40 mg Documented By: DIA Prednisone (Prednisone 20 Mg Tablet) 40 mg PO DAILY [facility] Last Admin: 01/18/25 07:58 Dose: 40 mg Documented By: DIA Risperidone (Risperidone 2 Mg Tablet) 4 mg PO BEDTIME [facility] Last Admin: 01/17/25 20:57 Dose: 4 mg Documented By: JUAN Sodium Chloride (0.9 % Sodium Chloride Flush 3 Ml Syringe) 3 ml IVFLUSH QSHIFT [facility] Last Admin: 01/18/25 09:39 Dose: 3 ml Documented By: DIA Labs 01/17/25 06:46 01/17/25 06:46 Labs: Laboratory Results - last 24 hr 01/17/25 01/17/25 01/17/25 11:28 16:31 16:33 POC Glucose 287 H 418 H* 444 H* 01/17/25 01/18/25 19:15 07:08 POC Glucose 364 H* 352 H* Assessment and Plan (1) Type 2 diabetes mellitus without complications: Status: Acute Plan 49F PMH morbid obesity, hypertension, mood disorder, diabetes, hyperlipidemia presented with shortness of breath Sepsis and acute hypoxic and hypercapnic respiratory failure Multifactorial Pneumonia-continue ceftriaxone doxycycline Undiagnosed COPD with acute decompensation-continue steroids, pulm appreciated - given 3 doses diamox wean o2 as tolerated - now off high flow, down to 2L, still desats on room air mood disorder clozapine, depakote, risperdal htn lisinopril hld statin obesity wegith loss dvt prophylaxis -lovenox full code reason for continued hospitalization:hypoxia Quality Stroke Does the patient have a stroke diagnosis?: No VTE Prior VTE?: No VTE Risk Level:: Medical - moderate - high VTE Device Contraindication: Treatment Not Indicated VTE Drug Contraindication: N/A - Med Ordered
[2025-01-18 11:30] LABS: Glucose, Whole Blood 306 mg/dL (60-115)
[2025-01-18 12:00] VITALS: BP 146/77; PULSE 90; RESP 16; TEMP 36.6; O2SAT 89
[2025-01-18 15:57] VITALS: BP 115/56; PULSE 86; RESP 20; TEMP 36.8; O2SAT 90
[2025-01-18 16:54] LABS: Glucose, Whole Blood 370 mg/dL (60-115)
[2025-01-18] MEDS: cefTRIAXone sodium 1 GM VIAL IVPUSH (17:04)
[2025-01-18] MEDS: Insulin Lispro 100 UNIT/ML 3 ML VIAL 10 UNIT SUBCUT (17:05)
[2025-01-18 19:14] VITALS: BP 142/65; PULSE 93; RESP 16; TEMP 36.8; O2SAT 88
[2025-01-18] MEDS: risperiDONE 2 MG TABLET 4 MG PO (20:20)
[2025-01-18] MEDS: Divalproex Sodium ER 500 MG TAB.ER.24H 1000 MG PO (20:22)
[2025-01-18] MEDS: cloZAPine 100 MG TABLET 200 MG PO (20:22)
[2025-01-18 21:09] LABS: Glucose, Whole Blood 290 mg/dL (60-115)
[2025-01-18 23:44] VITALS: BP 143/63; PULSE 82; RESP 18; TEMP 36.3; O2SAT 98
[2025-01-19 03:16] VITALS: BP 122/54; PULSE 64; RESP 18; TEMP 36; O2SAT 98
[2025-01-19 07:02] VITALS: BP 123/52; PULSE 104; RESP 15; TEMP 36.4; O2SAT 89
[2025-01-19 07:10] LABS: Glucose, Whole Blood 278 mg/dL (60-115)
[2025-01-19] MEDS: predniSONE 20 MG TABLET 40 MG PO (07:35)
[2025-01-19] MEDS: lisinopriL 5 MG TABLET PO (07:35)
[2025-01-19] MEDS: Doxycycline Monohydrate 100 MG CAPSULE PO ×2 (07:35→20:03)
[2025-01-19] MEDS: 0.9 % Sodium Chloride Flush 3 ML SYRINGE IVFLUSH ×2 (07:35→16:22)
[2025-01-19] MEDS: Pravastatin Sodium 40 MG TABLET PO (07:35)
[2025-01-19] MEDS: Insulin Lispro 100 UNIT/ML 3 ML VIAL SUBCUT ×4 (07:35→20:03)
--- NOTE | 2025-01-19 08:14 | HO.PM.IMPN ---
Subjective Subjective Date of Service: 01/19/25 Interval History: Was feeling pretty good yesterday this morning low more short of breath with some wheezes Physical Exam Vital Signs: Vital Signs: Last Vital Signs Temp 97.5 F 01/19/25 07:02 Pulse 104 H 01/19/25 07:02 Resp 15 01/19/25 07:02 BP 123/52 L 01/19/25 07:02 Pulse Ox 89 L 01/19/25 07:02 O2 Del Method Nasal Cannula 01/19/25 07:02 O2 Flow Rate 1 01/19/25 07:02 FiO2 46 01/15/25 11:40 Oxygen Flow Rate 10 01/13/25 16:06 BMI result Body Mass Index 36.2 General: AO X 3, no acute distress Resp: wheezing bilateral, no accessory muscles used CVS: S1,S2,RRR GI: soft, non tender, non distended Neuro: motor grossly intact, alert Objective Data Active Medications Acetaminophen (Acetaminophen 325 Mg Tablet) 975 mg PO Q6H PRN PRN Reason: Pain, Mild 1-3,fever,headache Benzonatate (Benzonatate 100 Mg Capsule) 100 mg PO TID PRN PRN Reason: Cough Last Admin: 01/16/25 17:02 Dose: 100 mg Documented By: ANJEL Calcium Carbonate (Calcium Carbonate 750 Mg Tab.Chew) 750 mg PO Q4H PRN PRN Reason: Heartburn Ceftriaxone Sodium (Ceftriaxone Sodium 1 Gm Vial) 1 gm IVPUSH Q24H [facility] Last Admin: 01/18/25 17:04 Dose: 1 gm Documented By: DIA Clozapine (Clozapine 100 Mg Tablet) 200 mg PO BEDTIME [facility] Last Admin: 01/18/25 20:22 Dose: 200 mg Documented By: JENNIFER Levalbuterol HCl 2.5 mg/ (Ipratropium [place] 0.5 mg) 0 mg INHALE Q4H PRN PRN Reason: Shortness of Breath/Wheezing Dextrose (Dextrose 50 % 25 Gm/50 Ml Syringe) 25 gm IVPUSH Q15M PRN; Protocol PRN Reason: per Hypoglycemia Standing Ord. Divalproex Sodium (Divalproex Sodium Er 500 Mg Tab.Er.24h) 1,000 mg PO BEDTIME [facility] Last Admin: 01/18/25 20:22 Dose: 1,000 mg Documented By: JENNIFER Doxycycline Monohydrate (Doxycycline Monohydrate 100 Mg Capsule) 100 mg PO Q12H [facility] Last Admin: 01/19/25 07:35 Dose: 100 mg Documented By: HONEY Enoxaparin Sodium (Enoxaparin Sodium 40 Mg/0.4 Ml Syringe) 40 mg SUBCUT Q24H [facility] Last Admin: 01/18/25 20:21 Dose: Not Given Documented By: JENNIFER Non-Admin Reason: Patient Refused Glucose (Glucose Gel 15 Gm Gel..Gram.) 15 gm PO Q15M PRN; Protocol PRN Reason: per Hypoglycemia Standing Ord. Insulin Human Lispro (Insulin Lispro 100 Unit/Ml 3 Ml Vial) 0 unit SUBCUT QIDACHS [facility]; Protocol Last Admin: 01/19/25 07:35 Dose: 6 unit Documented By: HONEY Lisinopril (Lisinopril 5 Mg Tablet) 5 mg PO DAILY [facility]; Protocol Last Admin: 01/19/25 07:35 Dose: 5 mg Documented By: HONEY Magnesium Hydroxide (Milk Of Magnesia 30 Ml Oral.Susp) 30 ml PO DAILY PRN PRN Reason: Constipation Melatonin (Melatonin 3 Mg Tablet) 6 mg PO BEDTIME PRN PRN Reason: Insomnia Nicotine (Nicotine 21 Mg Patch.Td24) 21 mg TRANSDERMA DAILY [facility] Last Admin: 01/19/25 07:35 Dose: Not Given Documented By: HONEY Non-Admin Reason: Patient Refused Ondansetron HCl (Ondansetron Hcl 4 Mg/2 Ml Vial) 4 mg IVPUSH Q8H PRN PRN Reason: Nausea and Vomiting Oxycodone HCl (Oxycodone Hcl Immed Release 5 Mg Tablet) 5 mg PO Q6H PRN PRN Reason: Pain, Moderate(Pain Scale 4-6) Pravastatin Sodium (Pravastatin Sodium 40 Mg Tablet) 40 mg PO DAILY [facility] Last Admin: 01/19/25 07:35 Dose: 40 mg Documented By: HONEY Prednisone (Prednisone 20 Mg Tablet) 40 mg PO DAILY [facility] Last Admin: 01/19/25 07:35 Dose: 40 mg Documented By: HONEY Risperidone (Risperidone 2 Mg Tablet) 4 mg PO BEDTIME [facility] Last Admin: 01/18/25 20:20 Dose: 4 mg Documented By: JENNIFER Sodium Chloride (0.9 % Sodium Chloride Flush 3 Ml Syringe) [facility] Last Admin: 01/19/25 07:35 Dose: 3 ml Documented By: HONEY Labs 01/17/25 06:46 01/17/25 06:46 Labs: Laboratory Results - last 24 hr 01/18/25 01/18/25 01/18/25 11:25 16:50 21:05 POC Glucose 306 H 370 H* 290 H 01/19/25 07:07 POC Glucose 278 H Microbiology Microbiology Results: Microbiology 01/13/25 16:43 Blood Culture - Final Blood - Venous No growth after 5 days. 01/13/25 16:35 Blood Culture - Final Blood - Venous No growth after 5 days. Assessment and Plan (1) Type 2 diabetes mellitus without complications: Status: Acute Plan 49F PMH morbid obesity, hypertension, mood disorder, diabetes, hyperlipidemia presented with shortness of breath Sepsis and acute hypoxic and hypercapnic respiratory failure Multifactorial Pneumonia-continue ceftriaxone doxycycline Undiagnosed COPD with acute decompensation-continue steroids, pulm appreciated - given 3 doses diamox wean o2 as tolerated - now off high flow, down to 1L, still desats on room air mood disorder clozapine, depakote, risperdal htn lisinopril hld statin obesity wegith loss dvt prophylaxis -lovenox full code reason for continued hospitalization:hypoxia Quality Stroke Does the patient have a stroke diagnosis?: No VTE Prior VTE?: No VTE Risk Level:: Medical - moderate - high VTE Device Contraindication: Treatment Not Indicated VTE Drug Contraindication: N/A - Med Ordered
[2025-01-19 11:00] VITALS: BP 136/73; PULSE 110; RESP 14; TEMP 36.6; O2SAT 90
[2025-01-19] MEDS: Insulin Lispro 100 UNIT/ML 3 ML VIAL 10 UNIT SUBCUT (11:23)
--- NOTE | 2025-01-19 12:07 | MHC.CM.PN ---
EMR REVIEWED, PER HOSPITALIST PT W/HYPOXIA C/O INCREASED SOB/WHEEZING, NO PLAN FOR DC AT THIS TIME, ANTIC PT WILL BE CLEARED FOR DC TOMORROW 01/20 HOME W/RESUMP OF [facility] SERVICES, CM WILL CONT TO FOLLOW DC NEEDS.
[2025-01-19 12:11] LABS: Glucose, Whole Blood 357 mg/dL (60-115)
--- NOTE | 2025-01-19 12:47 | P.CDIM_ITS ---
PROVIDER RESPONSE TEXT: To clarify, the appropriate diagnosis supported by the clinical indicators: Diabetes Type 2 with hyperglycemia: acute QUERY TEXT: PHYSICIAN'S DOCUMENTATION REQUEST Date of Query: 01/19/2025 12:33 PM EDT Patient Name: Aura Hood Admit Date: 01/14/2025 Dear Benjamín Martinez MD, A review of the medical record indicates additional documentation may be needed. Please review below and update the documentation accordingly. Clinical Indicators: LABS: POC glucose 176/444/357 DM Insulin Is there a diagnosis that correlates with these labs and the documented DM? Diabetes Type 2 with hyperglycemia possible, suspected, probable etc. Other specified Other (explain) Clinically unable to determine (explain) Thank you, Erika Sinclair, CCS, CDIS Use of terms such as suspected, likely, concern for, or probable (associated with a specific diagnosi s that is being evaluated, monitored, or treated as if it exists) are acceptable and can be coded in the inpatient se tting, when documented at the time of discharge. Please use your independent medical judgment in providing your response. THIS QUERY IS PART OF THE PERMANENT MEDICAL RECORD
--- NOTE | 2025-01-19 14:37 | HO.WOUND ---
Wound Consult: Initial 49yr old?[place] [facility] [place] - See progress notes and H&P for detailed history.? Wound consult placed for Back Cyst.? Patient agreeable to assessment and photo documentation.? Patient reports she has had the site for 20 plus yers she reports at times her significant other pill pop the site but has not sought treatment to the area. I recommend she follow up with dermatology out as it is unclear the etiology of the site. No s/s of infection at this time and the site remains stable. The center is white and dry chalk like structure - crumbles when assessed. The patient reports she does have genital warts that are quite large but refused my assessment. She wonders if the back site is of same nature - unclear etiology again with out being able to assess other areas. Recommended she follow up with her [employer] doctor, PCP and dermatology. Patient report she has sought treatment for the genital warts in the past but read up on the treatment the doctor prescribed and felt she would be better off with Aloe application. Patient report she has been doing this for greater than 3 years. Patient was educated on the ability to pass genital warts to sexual partners - she reports she was not aware of this but that her significant other too has genital warts. Patient will benefit from outpt follow up Left Mid Back Etiology: ?Unclear etiology ?Present on Admission Measurements: 0.2cm x 0.2cm Wound Bed: white chalk like substance Drainage / Odor: None Edges: ? defined Kayleigh wound: ?intact No Induration, Fluctuance or Warmth noted Pain: denies Goals of Treatment: ? Outpt dermatology follow up No topical recommendations needed at this time.
[2025-01-19 14:59] VITALS: BP 164/77; PULSE 85; RESP 16; TEMP 36.3; O2SAT 95
[2025-01-19] MEDS: cefTRIAXone sodium 1 GM VIAL IVPUSH (16:22)
[2025-01-19 16:32] LABS: Glucose, Whole Blood 217 mg/dL (60-115)
[2025-01-19 19:31] VITALS: BP 167/78; PULSE 74; RESP 18; TEMP 36.4; O2SAT 90
[2025-01-19 19:58] LABS: Glucose, Whole Blood 274 mg/dL (60-115)
[2025-01-19] MEDS: cloZAPine 100 MG TABLET 200 MG PO (20:03)
[2025-01-19] MEDS: Divalproex Sodium ER 500 MG TAB.ER.24H 1000 MG PO (20:09)
[2025-01-19] MEDS: risperiDONE 2 MG TABLET 4 MG PO (20:09)
[2025-01-19 23:01] VITALS: BP 165/75; PULSE 73; RESP 18; TEMP 36.2; O2SAT 93
[2025-01-20 03:11] VITALS: BP 137/91; PULSE 75; RESP 18; TEMP 36.6; O2SAT 92
[2025-01-20 07:05] LABS: Neut%MD 45.3 %; Neutrophils Absolute Auto 4.3 x10*3/uL (2.0-8.3); WBCANC 9.5 X10*3/uL
[2025-01-20 07:26] LABS: Glucose, Whole Blood 335 mg/dL (60-115)
[2025-01-20 07:32] VITALS: BP 130/59; PULSE 71; RESP 20; TEMP 36.2; O2SAT 97
[2025-01-20] MEDS: Pravastatin Sodium 40 MG TABLET PO (08:00)
[2025-01-20] MEDS: Doxycycline Monohydrate 100 MG CAPSULE PO (08:00)
[2025-01-20] MEDS: lisinopriL 5 MG TABLET PO (08:00)
[2025-01-20] MEDS: predniSONE 20 MG TABLET 40 MG PO (08:00)
[2025-01-20] MEDS: Insulin Lispro 100 UNIT/ML 3 ML VIAL SUBCUT (08:00)
[2025-01-20] MEDS: 0.9 % Sodium Chloride Flush 3 ML SYRINGE IVFLUSH (08:01)
--- NOTE | 2025-01-20 09:19 | P.PNIM_ITS ---
Subjective Subjective Date of Service: 01/20/25 Interval History: congested Physical Exam 2 Vital Signs: Vital Signs: Last Vital Signs Temp 97.2 F 01/20/25 07:32 Pulse 71 01/20/25 07:32 Resp 20 01/20/25 07:32 BP 130/59 L 01/20/25 07:32 Pulse Ox 97 01/20/25 07:32 O2 Del Method Room Air 01/20/25 07:32 O2 Flow Rate 1 01/20/25 03:11 FiO2 46 01/15/25 11:40 Oxygen Flow Rate 10 01/13/25 16:06 BMI result Body Mass Index 36.2 General: AO X 3, no acute distress Resp: CTA bilateral, no accessory muscles used CVS: S1,S2,RRR GI: soft, non tender, non distended Neuro: motor grossly intact, alert Psych: appropriate affect, appropriate insight Objective Data Active Medications Acetaminophen (Acetaminophen 325 Mg Tablet) 975 mg PO Q6H PRN PRN Reason: Pain, Mild 1-3,fever,headache Benzonatate (Benzonatate 100 Mg Capsule) 100 mg PO TID PRN PRN Reason: Cough Last Admin: 01/16/25 17:02 Dose: 100 mg Documented By: ANJEL Calcium Carbonate (Calcium Carbonate 750 Mg Tab.Chew) 750 mg PO Q4H PRN PRN Reason: Heartburn Ceftriaxone Sodium (Ceftriaxone Sodium 1 Gm Vial) 1 gm IVPUSH Q24H [facility] Last Admin: 01/19/25 16:22 Dose: 1 gm Documented By: HONEY Clozapine (Clozapine 100 Mg Tablet) 200 mg PO BEDTIME [facility] Last Admin: 01/19/25 20:03 Dose: 200 mg Documented By: HONEY Levalbuterol HCl 2.5 mg/ (Ipratropium [place] 0.5 mg) 0 mg INHALE Q4H PRN PRN Reason: Shortness of Breath/Wheezing Dextrose (Dextrose 50 % 25 Gm/50 Ml Syringe) 25 gm IVPUSH Q15M PRN; Protocol PRN Reason: per Hypoglycemia Standing Ord. Divalproex Sodium (Divalproex Sodium Er 500 Mg Tab.Er.24h) 1,000 mg PO BEDTIME [facility] Last Admin: 01/19/25 20:09 Dose: 1,000 mg Documented By: HONEY Doxycycline Monohydrate (Doxycycline Monohydrate 100 Mg Capsule) 100 mg PO Q12H [facility] Last Admin: 01/20/25 08:00 Dose: 100 mg Documented By: ALLISON Enoxaparin Sodium (Enoxaparin Sodium 40 Mg/0.4 Ml Syringe) 40 mg SUBCUT Q24H [facility] Last Admin: 01/19/25 20:05 Dose: Not Given Documented By: HONEY Non-Admin Reason: Patient Refused Glucose (Glucose Gel 15 Gm Gel..Gram.) 15 gm PO Q15M PRN; Protocol PRN Reason: per Hypoglycemia Standing Ord. Insulin Human Lispro (Insulin Lispro 100 Unit/Ml 3 Ml Vial) 0 unit SUBCUT QIDACHS [facility]; Protocol Last Admin: 01/20/25 08:00 Dose: 8 unit Documented By: ALLISON Lisinopril (Lisinopril 5 Mg Tablet) 5 mg PO DAILY [facility]; Protocol Last Admin: 01/20/25 08:00 Dose: 5 mg Documented By: ALLISON Magnesium Hydroxide (Milk Of Magnesia 30 Ml Oral.Susp) 30 ml PO DAILY PRN PRN Reason: Constipation Melatonin (Melatonin 3 Mg Tablet) 6 mg PO BEDTIME PRN PRN Reason: Insomnia Nicotine (Nicotine 21 Mg Patch.Td24) 21 mg TRANSDERMA DAILY [facility] Last Admin: 01/20/25 07:42 Dose: Not Given Documented By: ALLISON Non-Admin Reason: Patient Refused Ondansetron HCl (Ondansetron Hcl 4 Mg/2 Ml Vial) 4 mg IVPUSH Q8H PRN PRN Reason: Nausea and Vomiting Oxycodone HCl (Oxycodone Hcl Immed Release 5 Mg Tablet) 5 mg PO Q6H PRN PRN Reason: Pain, Moderate(Pain Scale 4-6) Pravastatin Sodium (Pravastatin Sodium 40 Mg Tablet) 40 mg PO DAILY [facility] Last Admin: 01/20/25 08:00 Dose: 40 mg Documented By: ALLISON Prednisone (Prednisone 20 Mg Tablet) 40 mg PO DAILY [facility] Last Admin: 01/20/25 08:00 Dose: 40 mg Documented By: ALLISON Risperidone (Risperidone 2 Mg Tablet) 4 mg PO BEDTIME [facility] Last Admin: 01/19/25 20:09 Dose: 4 mg Documented By: HONEY Sodium Chloride (0.9 % Sodium Chloride Flush 3 Ml Syringe) 3 ml IVFLUSH QSHIFT [facility] Last Admin: 01/20/25 08:01 Dose: 3 ml Documented By: ALLISON Labs 01/17/25 06:46 01/17/25 06:46 Labs: Laboratory Results - last 24 hr 01/19/25 01/19/25 01/19/25 11:12 16:28 19:55 Absolute Neuts (auto) Hold Purple Top POC Glucose 357 H* 217 H 274 H 01/20/25 01/20/25 06:17 07:20 Absolute Neuts (auto) 4.3 Hold Purple Top SEE NOTE POC Glucose 335 H Assessment and Plan (1) Type 2 diabetes mellitus without complications: Status: Acute Plan 49F PMH morbid obesity, hypertension, mood disorder, diabetes, hyperlipidemia presented with shortness of breath Sepsis and acute hypoxic and hypercapnic respiratory failure Multifactorial Pneumonia-continue ceftriaxone doxycycline Undiagnosed COPD with acute decompensation-continue steroids, pulm appreciated - given 3 doses diamox wean o2 as tolerated - now off high flow, down to 1L, continue to wean afrin for nasal congestion mood disorder clozapine, depakote, risperdal htn lisinopril hld statin obesity wegith loss dvt prophylaxis -lovenox full code reason for continued hospitalization:hypoxia Quality Stroke Does the patient have a stroke diagnosis?: No VTE Prior VTE?: No VTE Risk Level:: Medical - moderate - high VTE Device Contraindication: Treatment Not Indicated VTE Drug Contraindication: N/A - Med Ordered
--- NOTE | 2025-01-20 10:22 | PM.DS ---
DS: Providers Provider Date of Service: 01/20/25 Date of admission: 01/13/25 20:12 Date of discharge: 01/20/25 Primary care physician: Scooter Amador MD Consults: 01/14/25 10:53 Consult to Pulmonology Routine Consulting Provider: [facility] [place] Pulmonology Services Reason for consultation: worsening hypercapnea with lethargy, normal pH 01/19/25 06:23 Consult to Wound Care Routine Reason for consultation: L medial back cyst? DS: Diagnosis Discharge Diagnosis (1) Type 2 diabetes mellitus without complications: Status: Acute DS: Summary Hospital Course Hospital Course: from initial hpi: 49-year-old female with a past medical history significant for mood disorder, HTN, HLD, type 2 diabetes, obesity, smoker, who presents to the ED due to shortness of breath and weakness for an unknown period of time however worsening over the past week. Patient reports that she is smoking about 2 packs per day. Her history is very difficult to follow as the patient does not answer direct questions and has a flight of ideas. It is unclear if the cough is productive and she denies any fever. Workup in the ED significant for sepsis secondary to pneumonia and pleural effusion with acute hypoxic respiratory failure requiring high-flow oxygen. The patient smokes 2 packs per day and likely has underlying COPD however no official diagnosis. She was given 2 L IV fluids and started on IV antibiotics for pneumonia. CTA to rule out PE was negative for PE however did show pneumonia and small bilateral pleural effusions. hospital course: Patient was admitted for sepsis and acute hypoxic and hypercapnic respiratory failure. Was treated with ceftriaxone doxycycline for pneumonia. For undiagnosed COPD with COPD with acute decompensation was treated with steroids and eventually weaned to room air. On discharge we will continue 5 more days of Ceftin and prednisone. For mood disorder was continued on clozapine, Depakote, Risperdal. For hypertension continued on lisinopril. For hyperlipidemia continued on statin. For obesity weight loss recommended Time Attestation Discharge Coordination Time (in mins): 33 Quality: Safe Use of Opioids Does Pt have an Active Cancer Diagnosis on the Problem List?: No Quality: Stroke Does the patient have a stroke diagnosis?: No Physical Exam Vital Signs: Vital Signs: Last Vital Signs Temp 97.2 F 01/20/25 07:32 Pulse 71 01/20/25 07:32 Resp 20 01/20/25 07:32 BP 130/59 L 01/20/25 07:32 Pulse Ox 97 01/20/25 07:32 O2 Del Method Room Air 01/20/25 07:32 O2 Flow Rate 1 01/20/25 03:11 FiO2 46 01/15/25 11:40 Oxygen Flow Rate 10 01/13/25 16:06 BMI result Body Mass Index 36.2 General: AO X 3, no acute distress Resp: CTA bilateral, no accessory muscles used CVS: S1,S2,RRR GI: soft, non tender, non distended Neuro: motor grossly intact, alert Psych: appropriate affect, appropriate insight DS: Data Data Completed and Pending Labs on day of discharge: Laboratory Results - last 24 hr 01/19/25 01/19/25 01/19/25 11:12 16:28 19:55 Absolute Neuts (auto) Hold Purple Top POC Glucose 357 H* 217 H 274 H 01/20/25 01/20/25 06:17 07:20 Absolute Neuts (auto) 4.3 Hold Purple Top SEE NOTE POC Glucose 335 H Discharge Plan Discharge Anticipated Discharge Date/Time: 01/20/25 10:15 Patient Disposition: Home, Self-Care Discharge Diagnosis: copd Referrals: Physician,Unknown J [Physician] - 1 Week Discharge Medications: New prednisone 20 mg Tablet 40 mg PO DAILY Qty: 10 0RF cefuroxime axetil 500 mg tablet 500 mg PO BID Qty: 10 0RF Continued clozapine 100 mg tablet 200 mg PO BEDTIME risperidone 4 mg tablet 4 mg PO BEDTIME lovastatin 40 mg tablet 40 mg PO DAILY metformin 1,000 mg tablet 1,000 mg PO BID divalproex 500 mg tablet extended release 24 hr 1,000 mg PO BEDTIME lisinopril 5 mg tablet 5 mg PO DAILY Tradjenta 5 mg tablet 5 mg PO DAILY Discharge Orders: Discharge Order (Routine); Ordered 01/20/25 Ordered By: Benjamín Martinez Diet: Advance to usual diet Activity on Discharge: As tolerated Stand Alone Forms: Patient Portal Discharge page Print Language: Greek Care Plan Goals: recovery Health Concerns: copd, pna Plan of Treatment: 5 more days prednisone and ceftin, quit smoking Assessment: see above
--- NOTE | 2025-01-20 10:32 | MHC.CM.PN ---
Patient has been medically cleared for dc to home today, self care. CM called [facility] @ [phone] and was transferred to Patient's team; CM left a detailed message for Zaheer Butler, informing him of the dc plan and providing CM's Contact information if anything further is needed from CM. IMM was addressed with Patient at bedside and she was given the original(a copy was placed on the chart). Patient's Boyfriend is currently visiting and will assist with transport to home.
[2025-01-20] MEDS: Oxymetazoline HCl 0.05 % Nasal 15 ML SPRAY 2 SPRAY NOSTRIL-B (11:07)
== END 2025-01-20 11:14 | disposition home or self-care (01) | DRG 871 ==
LOC: HO.ED 19:52 → HO.EDOVER 20:20 → HO.IMC 20:27
PROVIDERS: Admitting Provider Physician Assistant; Emergency Provider Emergency Medicine; PCP Internal Medicine; Visit Provider Internal Medicine
DX: A41.9 Sepsis, unspecified organism (principal); J18.9 Pneumonia, unspecified organism; J96.01 Acute respiratory failure with hypoxia; J96.02 Acute respiratory failure with hypercapnia; J44.0 Chronic obstructive pulmonary disease with (acute) lower respiratory infection; J44.1 Chronic obstructive pulmonary disease with (acute) exacerbation; J91.8 Pleural effusion in other conditions classified elsewhere; E66.2 Morbid (severe) obesity with alveolar hypoventilation; R91.8 Other nonspecific abnormal finding of lung field; E78.5 Hyperlipidemia, unspecified; E11.65 Type 2 diabetes mellitus with hyperglycemia; I10 Essential (primary) hypertension; F39 Unspecified mood [affective] disorder; Z68.36 Body mass index [BMI] 36.0-36.9, adult; Z71.3 Dietary counseling and surveillance; F17.210 Nicotine dependence, cigarettes, uncomplicated; Z20.822 Contact with and (suspected) exposure to COVID-19; Z71.6 Tobacco abuse counseling; Z79.84 Long term (current) use of oral hypoglycemic drugs; Z79.899 Other long term (current) drug therapy
CPT/HCPCS: 0241U; 36415; 71045; 71275; 80048; 80053; 80076; 82803; 82947; 83036; 83605; 83735; 83880; 84484; 85025; 85027; 85048; 85379; 87040; 93005; 99285; J0456; J0696; J1120; J1271; J1650; J2919; Q9967

== ENCOUNTER → 2025-01-13 16:22 | Outpatient (BNV) | payer MEDICARE, MEDICAID, SELFPAY | PROVIDERS: Admitting Provider Physician Assistant; Emergency Provider Emergency Medicine; Visit Provider Internal Medicine | DX: R94.31 Abnormal electrocardiogram [ECG] [EKG] (principal); R06.00 Dyspnea, unspecified | CPT/HCPCS: 93010 ==

== ENCOUNTER → 2025-01-13 16:24 | Outpatient (BNV) | payer MEDICARE, MEDICAID, SELFPAY | PROVIDERS: Emergency Provider Emergency Medicine; Visit Provider Nuclear Medicine | DX: R91.8 Other nonspecific abnormal finding of lung field (principal); J90 Pleural effusion, not elsewhere classified | CPT/HCPCS: 71045; 71275 ==

== ENCOUNTER → 2025-01-13 20:12 | Outpatient (BNV) | payer MEDICARE, MEDICAID, SELFPAY | PROVIDERS: Admitting Provider Physician Assistant; Emergency Provider Emergency Medicine; Visit Provider Internal Medicine Pulmonary Disease | DX: J96.01 Acute respiratory failure with hypoxia (principal); J96.02 Acute respiratory failure with hypercapnia; J18.9 Pneumonia, unspecified organism | CPT/HCPCS: 99222 ==

== ENCOUNTER → 2025-01-13 20:12 | Outpatient (BNV) | payer MEDICARE, MEDICAID, SELFPAY | PROVIDERS: Admitting Provider Physician Assistant; Emergency Provider Emergency Medicine; Visit Provider Internal Medicine | DX: E11.9 Type 2 diabetes mellitus without complications (principal) | CPT/HCPCS: 99223; 99232; 99233 ==

== ENCOUNTER 2025-02-03 15:44 | Outpatient (REF) | payer MEDICARE, MEDICAID, SELFPAY ==
[2025-02-03 16:01] LABS: MANUAL DIFF FLAG NO
[2025-02-03 16:28] LABS: Basophils Percent Auto 0.5 % (0-2); Eosinophils Absolute Auto 0.1 X10*3/uL (0.0-0.4); Eosinophils Percent Auto 1.3 % (0-4); Hematocrit 44.9 % (37.0-47.0); Hemoglobin 14.9 g/dl (12.0-16.0); Imm Gran Abs Auto 0.04 X10*3/uL (0.00-0.03); Imm Gran Pct Auto 0.5 % (0.0-0.4); Lymphocytes Absolute Auto 3.4 X10*3/uL (1.2-4.9); Lymphocytes Percent Auto 42.7 % (20-40); Mean Corpuscular HGB Conc 33.2 g/dl (31.0-35.0); Mean Corpuscular Hemoglobin 29.7 pg (27.0-33.0); Mean Corpuscular Volume 89.4 fL (80.0-98.0); Mean Platelet Volume 11.2 fL (9.4-12.3); Monocytes Absolute Auto 0.6 X10*3/uL (0.1-1.2); Monocytes Percent Auto 7.9 % (2-11); Neutrophils Absolute Auto 3.7 x10*3/uL (2.0-8.3); Neutrophils Percent Auto 47.1 % (45-73); Platelet Count 201 X10*3/uL (160-400); Red Blood Count 5.02 X10*6/uL (4.20-5.50); Red Cell Distribution Width 13.5 % (11.0-16.0); White Blood Count 7.9 X10*3/uL (4.8-10.8)
--- OUTSIDE RECORDS SUMMARY | 2025-02-03 16:28 | XMS_ITS | Data Portability ---
Author Organization [facility], Main Office Address [address] [facility] [address] [place] [address] Care Team Providers Care Collection Coordinator Name Role Phone SCOOTER AMADOR Primary Care Provider VIVI COON Psychologist CIERA [place] Referring Provider [phone] Assessment Encounter Date Assessment Date Assessment LastModified by Organization Details LastModified Time 01/22/2025 01/22/2025 This service was provided using telemedicine. Patient consented to telephone visit Patient was located at home in the [facility]. Provider was located in the office. No other persons participated in the telemedicine visit except for the patient unless otherwise indicated here. RN Total time of visit was 30 minutes. [email or web address] Not available 01/24/2025 10:36:57 Plan of Treatment Reminders Order Date Submit Date Provider Last Modified By Organization Details Last Modified Time Details Appointments None recorde d. Lab hemoglo bin A1C, fingers tick 2023 024 [email or web address] In-Office Order, Internal Use Only DO Not Attach Compendium DO Not Attach Compendium, Do Not Delete/merge, [id number] 15:14:28 microal bumin, urine 2023 024 OMAR [facility] (Centralized Electronic Ordering - All Locations), Patient Can Go To The Location Of Their Choice, [id number] 4 12:06:20 LDL, direct, serum 2023 024 OMAR [facility], [address], [place], [address], 4 12:06:19 HDL cholest monalisa, serum 2023 024 [email or web address] [facility] (Centralized Electronic Ordering - All Locations), Patient Can Go To The Location Of Their Choice, [id number] 5 09:12:13 CBC w/ auto diff 2023 024 OMAR [facility], [address], [place], [address], 4 12:06:16 BMP, serum or plasma 2023 024 OMAR [facility], [address], [place], [address], 4 12:06:17 TSH, ultra-s ensitiv e, serum 2023 024 OMAR [facility], [address], [place], [address], 4 12:06:21 hemoglo bin A1C, fingers tick 2022 023 [email or web address] In-Office Order, Internal Use Only DO Not Attach Compendium DO Not Attach Compendium, Do Not Delete/merge, [id number] 3 14:11:57 microal bumin, urine 2022 023 [email or web address] [facility], [address], [address], [place], [address], 3 07:40:42 CMP, serum or plasma 2022 023 [email or web address] [facility], [address], [address], [place], [address], 4 08:06:34 lipid panel, serum 2022 023 OMAR [facility], [address], [address], [place], [address], 4 12:06:18 CBC w/ auto diff 2022 023 [email or web address] [facility], [address] [facility], [facility], [place], [address], 3 07:40:42 Referral diabeti c ophthal mology referra l - Type 2 diabete s requiri ng regular eye exams. 2022 023 romero [facility], [address], [place], [address], 4 08:46:58 gastroe nterolo gist referra l - Needs colon cancer screeni ng 2022 023 Not available 3 15:13:27 Procedures colonos copy screeni ng (PROC) 2022 023 [email or web address] In-Office Order, Internal Use Only DO Not Attach Compendium DO Not Attach Compendium, Do Not Delete/merge, [id number] 3 15:13:03 Surgeries None recorde d. Imaging None recorde d. Medication Orders Vitamin C 250 mg tablet 2024 025 [id number], [address] [place] [address], [id number], 5 10:37:01 Tradjen ta 5 mg tablet 2023 024 [facility] #[id number], [address] [place] [address], [id number], 4 15:14:32 Tradjen ta 5 mg tablet 2023 024 [email or web address] [facility] #11314, [address] [place] [address], [id number], 4 14:39:34 Patient TargetsNo targets recorded. Patient Instructions Encounter Date Encounter Id Patient Instructions Last Modified By Organization Details Last Modified Time 08/07/2023 [id number] deciding about using medicines to quit smoking [...] cancer [email or web address] Not available 08/07/2023 14:15:06 11/23/2023 [id number] allergies: care instructions [email or web address] Not available 11/23/2023 [...] concerns [email or web address] Not available 11/23/2023 12:04:13 02/27/2024 [id number] schizophrenia: care instructions [email or web address] Not available 02/27/2024 18:37:24 type 2 diabetes: care instructions [email or web address] Not available 02/27/2024 15:14:26 01/20/2025 [id number] I have reviewed the note and agree with the assessment and plan of care. [email or web address] Not available 01/20/2025 15:45:28 01/22/2025 [id number] deciding about using medicines to quit smoking acennerazzo Not available 01/24/2025 10:53:21 Quitting Tobacco: Care Instructions [email or web address] Not available 01/24/2025 10:53:21 schizophrenia: care instructions acennerazzo Not available 01/24/2025 10:53:21 chronic obstructive pulmonary disease (COPD): care instructions acennerazzo Not available 01/24/2025 10:53:22 learning about copd and how to prevent lung infections acennerazzo Not available 01/24/2025 10:53:21 pneumonia: care instructions acennerazzo Not available 01/24/2025 10:58:42 Reason for Referral Diabetic Ophthalmology Refer ral for Uncontrolled type 2 diabetes mellitus Type 2 diabetes requiring regular eye exams. Referring Physician: Scooter Amador [facility], Encounter Date: 08/07/2023 Spool Sorter Referral for Screening for malignant neoplasm of colon Needs colon cancer screening Referring Physician: Scooter Amador [facility], Encounter Date: 08/07/2023 Results Created Date Observation Date Name Description Value Unit Range Abnormal Flag Note LastModifiedBy Organization Detail LastModifiedTime 08/07/20 23 08/07/2023 hemog lobin A1C, finge rstic k A1C 7.2 % 4-6 Not Available In-Office Order Internal Use Only DO Not Attach Compendium DO Not Attach Compendium, Do Not Delete/merge, [id number] 08/07/2023 13:25:15 11/23/19 24 11/23/2023 hemog lobin A1C, finge rstic k A1C 7.3 % 4-6 abnormal Not Available In-Office Order Internal Use Only DO Not Attach Compendium DO Not Attach Compendium, Do Not Delete/merge, [id number] 11/23/2023 12:17:33 02/27/20 24 02/28/2024 CBC WITH DIFFE RENTI AL/PL ATELE T WBC 9.5 x10e3 /uL 3.4-10 .8 Not Available [facility] ([facility]) [address] [facility], [place], [address], 02/28/2024 12:06:16 02/27/20 24 02/28/2024 CBC WITH DIFFE RENTI AL/PL ATELE T RBC 5.03 x10e6 /uL 3.77-5 .28 Not Available [facility] ([facility]) [address] [place], [address], 02/28/2024 12:06:16 02/27/20 24 02/28/2024 CBC WITH DIFFE RENTI AL/PL ATELE T hemoglobin 15.3 g/dL 11.1-1 5.9 Not Available [facility] ([facility]) [address] [place], [address], 02/28/2024 12:06:16 02/27/20 24 02/28/2024 CBC WITH DIFFE RENTI AL/PL ATELE T hematocrit 46.4 % 34.0-4 6.6 Not Available [facility] ([facility]) [address] [place], [address], 02/28/2024 12:06:16 02/27/20 24 02/28/2024 CBC WITH DIFFE RENTI AL/PL ATELE T MCV 92 fL 79-97 Not Available [facility] ([facility]) [address] [place], [address], 02/28/2024 12:06:16 02/27/20 24 02/28/2024 CBC WITH DIFFE RENTI AL/PL ATELE T MCH 30.4 pg 26.6-3 3.0 Not Available [facility] ([facility]) [address] [place], [address], 02/28/2024 12:06:16 02/27/20 24 02/28/2024 CBC WITH DIFFE RENTI AL/PL ATELE T MCHC 33.0 g/dL 31.5-3 5.7 Not Available [facility] ([facility]) [address] [facility] [place], [address], 02/28/2024 12:06:16 02/27/20 24 02/28/2024 CBC WITH DIFFE RENTI AL/PL ATELE T RDW 13.5 % 11.7-1 5.4 Not Available [facility] ([facility]) [address] [facility], [place], [address], 02/28/2024 12:06:16 02/27/20 24 02/28/2024 CBC WITH DIFFE RENTI AL/PL ATELE T platelets 222 x10e3 /uL 150-45 0 Not Available [facility] ([facility]) [address] [facility], [place], [address], 02/28/2024 12:06:16 02/27/20 24 02/28/2024 CBC WITH DIFFE RENTI AL/PL ATELE T neutrophils 47 % not estab. Not Available [facility] ([facility]) [address] [facility], [place], [address], 02/28/2024 12:06:16 02/27/20 24 02/28/2024 CBC WITH DIFFE RENTI AL/PL ATELE T lymphs 44 % not estab. Not Available [facility] ([facility]) [address] [facility], [place], [address], 02/28/2024 12:06:16 02/27/20 24 02/28/2024 CBC WITH DIFFE RENTI AL/PL ATELE T monocytes 8 % not estab. Not Available [facility] ([facility]) [address] [facility], [place], [address], 02/28/2024 12:06:16 02/27/20 24 02/28/2024 CBC WITH DIFFE RENTI AL/PL ATELE T eos 1 % not estab. Not Available [facility] ([facility]) [address] [facility], [place], [address], 02/28/2024 12:06:16 02/27/20 24 02/28/2024 CBC WITH DIFFE RENTI AL/PL ATELE T basos 0 % not estab. Not Available [facility] ([facility]) [address] [place], [address], 02/28/2024 12:06:16 02/27/20 24 02/28/2024 CBC WITH DIFFE RENTI AL/PL ATELE T immature cells ASSET PROTECTION LEAD Not Available [facility] ([facility]) [address] [place], [address], 02/28/2024 12:06:16 02/27/20 24 02/28/2024 CBC WITH DIFFE RENTI AL/PL ATELE T neutrophils (absolute) 4.4 x10e3 /uL 1.4-7. 0 Not Available [facility] ([facility]) [address] [place], [address], 02/28/2024 12:06:16 02/27/20 24 02/28/2024 CBC WITH DIFFE RENTI AL/PL ATELE T lymphs (absolute) 4.2 x10e3 /uL 0.7-3. 1 above high normal Not Available [facility] ([facility]) [address] [place], [address], 02/28/2024 12:06:16 02/27/20 24 02/28/2024 CBC WITH DIFFE RENTI AL/PL ATELE T monocytes(ab solute) 0.7 x10e3 /uL 0.1-0. 9 Not Available [facility] ([facility]) [address] [place], [address], 02/28/2024 12:06:16 02/27/20 24 02/28/2024 CBC WITH DIFFE RENTI AL/PL ATELE T eos (absolute) 0.1 x10e3 /uL 0.0-0. 4 Not Available [facility] ([facility]) [address] [place], [address], 02/28/2024 12:06:16 02/27/20 24 02/28/2024 CBC WITH DIFFE RENTI AL/PL ATELE T baso (absolute) 0.0 x10e3 /uL 0.0-0. 2 Not Available [facility] ([facility]) [address] [facility], [place], [address], 02/28/2024 12:06:16 02/27/20 24 02/28/2024 CBC WITH DIFFE RENTI AL/PL ATELE T immature granulocytes 0 % not estab. Not Available [facility] ([facility]) [address] [facility], [place], [address], 02/28/2024 12:06:16 02/27/20 24 02/28/2024 CBC WITH DIFFE RENTI AL/PL ATELE T immature grans (abs) 0.0 x10e3 /uL 0.0-0. 1 Not Available [facility] ([facility]) [address] [facility], [place], [address], 02/28/2024 12:06:16 02/27/20 24 02/28/2024 CBC WITH DIFFE RENTI AL/PL ATELE T NRBC ASSET PROTECTION LEAD Not Available [facility] ([facility]) [address] [facility], [place], [address], 02/28/2024 12:06:16 02/27/20 24 02/28/2024 CBC WITH DIFFE RENTI AL/PL ATELE T hematology comments: ASSET PROTECTION LEAD Not Available [facility] ([facility]) [address] [facility], [place], [address], 02/28/2024 12:06:16 02/27/20 24 02/28/2024 BASIC METAB OLIC PANEL (8) glucose 151 mg/dL 70-99 above high normal Not Available [facility] ([facility]) [address] [facility], [place], [address], 02/28/2024 12:06:17 02/27/20 24 02/28/2024 BASIC METAB OLIC PANEL (8) BUN 6 mg/dL 6-24 Not Available [facility] ([facility]) [address] [facility] [place], [address], 02/28/2024 12:06:17 02/27/20 24 02/28/2024 BASIC METAB OLIC PANEL (8) creatinine 0.51 mg/dL 0.57-1 .00 below low normal Not Available [facility] ([facility]) [address] [place], [address], 02/28/2024 12:06:17 02/27/20 24 02/28/2024 BASIC METAB OLIC PANEL (8) eGFR 114 mL/mi n/1.7 3 >59 Not Available [facility] ([facility]) [address] [place], [address], 02/28/2024 12:06:17 02/27/20 24 02/28/2024 BASIC METAB OLIC PANEL (8) BUN/creatini ne ratio 12 9-23 Not Available [facility] ([facility]) [address] [place], [address], 02/28/2024 12:06:17 02/27/20 24 02/28/2024 BASIC METAB OLIC PANEL (8) sodium 141 mmol/ L 134-14 4 Not Available [facility] ([facility]) [address] [place], [address], 02/28/2024 12:06:17 02/27/20 24 02/28/2024 BASIC METAB OLIC PANEL (8) potassium 4.6 mmol/ L 3.5-5. 2 Not Available [facility] ([facility]) [address] [place], [address], 02/28/2024 12:06:17 02/27/20 24 02/28/2024 BASIC METAB OLIC PANEL (8) chloride 98 mmol/ L 96-106 Not Available [facility] ([facility]) [address] [place], [address], 02/28/2024 12:06:17 02/27/20 24 02/28/2024 BASIC METAB OLIC PANEL (8) carbon dioxide, total 31 mmol/ L 20-29 above high normal Not Available [facility] ([facility]) [address] [place], [address], 02/28/2024 12:06:17 02/27/20 24 02/28/2024 BASIC METAB OLIC PANEL (8) calcium 9.8 mg/dL 8.7-10 .2 Not Available [facility] ([facility]) [address] [place], [address], 02/28/2024 12:06:17 02/27/20 24 02/28/2024 LIPID PANEL cholesterol, total 178 mg/dL 100-19 9 Not Available [facility] ([facility]) [address] [place], [address], 02/28/2024 12:06:18 02/27/20 24 02/28/2024 LIPID PANEL triglyceride s 116 mg/dL 0-149 Not Available [facility] ([facility]) [address] [place], [address], 02/28/2024 12:06:18 02/27/20 24 02/28/2024 LIPID PANEL HDL cholesterol 96 mg/dL >39 Not Available [facility] ([facility]) [address] [place], [address], 02/28/2024 12:06:18 02/27/20 24 02/28/2024 LIPID PANEL VLDL cholesterol luke 20 mg/dL 5-40 Not Available [facility] ([facility]) [address] [place], [address], 02/28/2024 12:06:18 02/27/20 24 02/28/2024 LIPID PANEL LDL chol calc (nih) 62 mg/dL 0-99 Not Available [facility] ([facility]) [address] [facility], [place], [address], 02/28/2024 12:06:18 02/27/20 24 02/28/2024 LIPID PANEL comment: ASSET PROTECTION LEAD Not Available [facility] ([facility]) [address] [place], [address], 02/28/2024 12:06:18 02/27/20 24 02/28/2024 LDL PETE STERO L (DIRE CT) LDL chol. (direct) 65 mg/dL 0-99 Not Available [facility] ([facility]) [address] [facility], [place], [address], 02/28/2024 12:06:19 02/27/20 24 02/28/2024 ALBUM IN, RANDO M URINE albumin, urine 13.2 ug/mL not estab. Not Available [facility] ([facility]) [address] [facility], [place], [address], 02/28/2024 12:06:20 02/27/20 24 02/28/2024 TSH RFX ON ABNOR MAL TO FREE T4 TSH 1.110 uIU/m L 0.450- 4.500 Not Available [facility] ([facility]) [address] [facility], [place], [address], 02/28/2024 12:06:20 02/27/20 24 02/27/2024 hemog lobin A1C, finge rstic k A1C 8.2 % 4-6 high Not Available In-Office Order Internal Use Only DO Not Attach Compendium DO Not Attach Compendium, Do Not Delete/merge, [id number] 02/27/2024 14:30:40 Result Notes None recorded. Problems Name Problem SNOMED Code Status Onset Date Resolution Date Notes Provider Name and Address Organization Details Recorded Time Abdomina l pain 07500622 Completed 201104/14/2014 IMPRESSI ON: PT WITH INTERMIT [...] CATALAN I ANNOTATI ON/ADDEN DUM Not Available [facility] 4 14:17:44 Acute sinusiti s 70466052 Completed 200804/14/2014 RECORDED 01/13/20 09 10:58AM BY MIRYAM CELIS MA, ANNOTATI ON/ADDEN DUM Not Available [facility] 4 14:17:44 Allergic rhinitis 48182625 Active Scooter Amadro MD [address] [address], [place], [address] , [facility] 5 17:55:35 Screenin g for malignan t neoplasm of breast Completed 201304/14/2014 RECORDED 12/24/19 14 8:19AM BY SIXTO GALVEZATI ON/ADDEN DUM Not Available [facility] 4 14:17:45 Cough 44126241 Completed 200704/14/2014 DATE: 08/06/20 08; IMPRESSI ON: W/ WHEEZING .; RECORDED 05/01/20 12 9:48AM BY SIXTO GALVEZATI ON/ADDEN DUM Xi rodriguez, [facility] 7 09:53:54 Tobacco dependen ce syndrome 76977687 Completed 201304/14/2014 RECORDED 12/24/19 14 8:19AM BY KATY CATALAN I ANNOTATI ON/ADDEN DUM Not Available [facility] 4 14:17:45 Type 2 diabetes mellitus without complica tion 809927340 Completed 201204/14/2014 IMPRESSI ON: NO CHANGES IN MGMT; CHECK LABS AND ADJUST IF NEEDED.; RECORDED 07/15/20 13 2:53PM BY AINSLEY MONSIVAIS MA, ANTHONY ON/ADDEN DUM Deja Jeffrey CAMPBELL [address] [facility] [address], [place], [address] , [facility] 7 13:54:58 Type 2 diabetes mellitus without complica tion 459494179 Completed 07/06/2017 Deja Jeffrey CAMPBELL [address] [facility] [address], [place], [address] , [facility] 7 13:54:58 Diarrhea 26854650 Completed 201104/14/2014 IMPRESSI ON: THIS SEEMS LIKE IBS GIVEN HER SX AND THE AMOUNT OF TIME SHE HAS HAD SX. DOUBT INFECTIO US BECAUSE OF THE DURATION . WILL CHECK STOOL STUDIES NEXT VISIT IF STILL SYMPTOMA TIC.; RECORDED 07/08/20 12 11:19AM BY ANTHONY GALVEZ ON/ADDEN DUM Not Available [facility] 4 14:17:45 Dizzines s and giddines s 191559144 Completed 201104/14/2014 RECORDED 05/01/20 12 9:48AM BY SIXTO GALVEZATI ON/ADDEN DUM Not Available [facility] 4 14:17:45 Dysmenor seng 112998226 Completed 201104/14/2014 RECORDED 05/01/20 12 9:48AM BY SIXTO GALVEZATI ON/ADDEN DUM Not Available [facility] 4 14:17:45 Respirat ory finding 515125300 Completed 201104/14/2014 RECORDED 05/01/20 12 9:48AM BY SIXTO GALVEZATI ON/ADDEN DUM Not Available [facility] 4 14:17:45 Blood chemistr y outside referenc e range 055015707 Completed 201104/14/2014 RECORDED 05/01/20 12 9:48AM BY SIXTO GALVEZATI ON/ADDEN DUM Not Available [facility] 4 14:17:45 Malaise and fatigue 872524644 Completed 05/24/2017 Xi rodriguez, [facility] 7 09:53:48 Influenz a vaccine needed [id number] 06 Completed 201004/14/2014 DATE: 06/09/20 11; RECORDED 05/01/20 12 9:48AM BY KATY CATALAN I ANNOTATI ON/ADDEN DUM Not Available [facility] 4 14:17:45 Disorder of hair AND/OR hair follicle Completed 201104/14/2014 RECORDED 05/01/20 12 9:48AM BY KATY CATALAN I ANNOTATI ON/ADDEN DUM Not Available [facility] 4 14:17:45 Adult health examinat ion Completed 201304/14/2014 RECORDED 12/24/19 14 8:19AM BY KATY CATALAN I ANNOTATI ON/ADDEN DUM Not Available [facility] 4 14:17:45 Well child 213811997 Completed 201104/14/2014 RECORDED 05/01/20 12 9:48AM BY KATY CATALAN I ANNOTATI ON/ADDEN DUM Not Available [facility] 4 14:17:45 Pure hypercho lesterol emia 306621285 Completed 10/31/2016 Scooter Amador MD [address] [address], [place], [address] , [facility] 7 14:03:55 Irritabl e bowel syndrome 76979980 Completed 201104/14/2014 RECORDED 07/08/20 12 11:19AM BY KATY CATALAN I ANNOTATI ON/ADDEN DUM Not Available [facility] 4 14:17:46 Primary malignan t neoplasm of uterine cervix 621927104 Completed 201204/14/2014 AGE 17, LASER REMOVAL; RECORDED 10/08/19 13 11:20AM BY KATY CATALAN I ANNOTATI ON/ADDEN DUM Not Available [facility] 4 14:17:46 Administ ration of bacteria l and viral vaccine Completed 200704/14/2014 RECORDED 08/06/20 08 2:05PM BY GM SEAMAN, OFFICE VISIT Not Available [facility] 4 14:17:46 Onychomy cosis due to dermatop hyte 858349331 Completed 201104/14/2014 RECORDED 05/01/20 12 9:48AM BY KATY CATALAN I ANNOTATI ON/ADDEN DUM Not Available [facility] 4 14:17:46 Knee pain Completed 201104/14/2014 RECORDED 05/01/20 12 9:48AM BY SIXTO GALVEZATI ON/ADDEN DUM Not Available [facility] 4 14:17:46 Immuniza tion refused Completed 201304/14/2014 RECORDED 12/24/19 14 8:19AM BY SIXTO GALVEZATI ON/ADDEN DUM Not Available [facility] 4 14:17:46 Posterio r rhinorrh ea 16009381 Completed 201104/14/2014 RECORDED 05/01/20 12 9:48AM BY SIXTO GALVEZATI ON/ADDEN DUM Not Available [facility] 4 14:17:46 Eruption 372103757 Completed 200804/14/2014 RECORDED 01/13/20 09 10:58AM BY MIRYAM CELIS MA, SIXTOATI ON/ADDEN DUM Not Available [facility] 4 14:17:46 Procedur e refused Completed 201104/14/2014 RECORDED 05/01/20 12 9:48AM BY SIXTO GALVEZATI ON/ADDEN DUM Not Available [facility] 4 14:17:46 Speciali zed medical examinat ion Completed 201104/14/2014 RECORDED 05/01/20 12 9:48AM BY KATY CAATLAN I ANNOTATI ON/ADDEN DUM Not Available [facility] 4 14:17:46 Schizoph yanique 10992140 Active Stable on meds. Followed by psych Scooter Amador MD [address] [facility] [address], [place], [address] , [facility] 6 13:25:02 Screenin g for malignan t neoplasm of cervix Completed 201104/14/2014 RECORDED 05/01/20 12 9:48AM BY SIXTO GALVEZATI ON/ADDEN DUM Not Available [facility] 4 14:17:46 Chronic sinusiti s 99971635 Completed 201104/14/2014 RECORDED 05/01/20 12 9:48AM BY SIXTO GALVEZATI ON/ADDEN DUM Not Available [facility] 4 14:17:46 Tobacco dependen ce syndrome 64927188 Active Scooter Amador MD [address] [facility] [address], [place], [address] , [facility] 6 15:15:56 Trichomo nal vulvovag initis 95982147 Completed 201004/14/2014 DATE: 03/02/20 11; RECORDED 05/01/20 12 9:48AM BY SIXTO GALVEZATI ON/ADDEN DUM Not Available [facility] 4 14:17:46 Acute upper respirat ory infectio n 91677790 Completed 201204/14/2014 RECORDED 10/08/19 13 11:24AM BY SIXTO GALVEZATI ON/ADDEN DUM Not Available [facility] 4 14:17:47 Urinary incontin ence 292191602 Completed 200704/14/2014 RESOLVED DATE: 04/23/20 08; RECORDED 04/23/20 08 10:15AM BY SCOOTER SILVA MD, ANTHONY ON/ADDEN DUM Not Available [facility] 4 14:17:47 Wheezing 57896584 Completed 201204/14/2014 IMPRESSI ON: NO H/O ASTHMA. SHE WILL CALL IF SHE NEEDS TO USE THE PROAIR DAILY.; RECORDED 10/08/19 13 11:24AM BY ANTHONY GALVEZ ON/ADDEN DUM Not Available [facility] 4 14:17:47 Abdomina l pain 40154494 Completed 201105/04/2014 IMPRESSI ON: PT WITH INTERMIT [...] CATALAN I ANNOTATI ON/ADDEN DUM Not Available [facility] 4 06:38:55 Acute sinusiti s 66710405 Completed 200805/04/2014 RECORDED 01/13/20 09 10:58AM BY MIRYAM CELIS MA, ANNOTATI ON/ADDEN DUM Not Available [facility] 4 06:38:55 Screenin g for malignan t neoplasm of breast Completed 201305/04/2014 RECORDED 12/24/19 14 8:19AM BY KATY CATALAN I ANNOTATI ON/ADDEN DUM Not Available [facility] 4 06:38:55 Cough 75948376 Completed 200705/04/2014 DATE: 08/06/20 08; IMPRESSI ON: W/ WHEEZING .; RECORDED 05/01/20 12 9:48AM BY KATY CTAALAN I ANNOTATI ON/ADDEN DUM Xi rodriguez [facility] 7 09:53:54 Tobacco dependen ce syndrome 11720338 Completed 201305/04/2014 RECORDED 12/24/19 14 8:19AM BY KATY CATALAN I ANNOTATI ON/ADDEN DUM Not Available [facility] 4 06:38:55 Type 2 diabetes mellitus without complica tion 539205670 Completed 201205/04/2014 IMPRESSI ON: NO CHANGES IN MGMT; CHECK LABS AND ADJUST IF NEEDED.; RECORDED 07/15/20 13 2:53PM BY AINSLEY MONSIVAIS MA, SIXTOATI ON/ADDEN DUM Deja Murphy PA-C [address] [facility] [address], [place], [address] , [facility] 7 13:54:58 Diarrhea 62869679 Completed 201105/04/2014 DWAINEI ON: THIS SEEMS LIKE IBS GIVEN HER SX AND THE AMOUNT OF TIME SHE HAS HAD SX. DOUBT INFECTIO US BECAUSE OF THE DURATION . WILL CHECK STOOL STUDIES NEXT VISIT IF STILL SYMPTOMA TIC.; RECORDED 07/08/20 12 11:19AM BY SIXTO GALVEZATI ON/ADDEN DUM Not Available [facility] 4 06:38:55 Dizzines s and giddines s 234067769 Completed 201105/04/2014 RECORDED 05/01/20 12 9:48AM BY SIXTO GALVEZATI ON/ADDEN DUM Not Available [facility] 4 06:38:55 Dysmenor seng 535410497 Completed 201105/04/2014 RECORDED 05/01/20 12 9:48AM BY ANTHONY GALVEZ ON/ADDEN DUM Not Available [facility] 4 06:38:55 Respirat ory finding 613586102 Completed 201105/04/2014 RECORDED 05/01/20 12 9:48AM BY ANTHONY GALVEZ ON/ADDEN DUM Not Available [facility] 4 06:38:55 Blood chemistr y outside referenc e range [id number] Completed 201105/04/2014 RECORDED 05/01/20 12 9:48AM BY ANTHONY GALVEZ ON/ADDEN DUM Not Available [facility] 4 06:38:55 Influenz a vaccine needed [id number] 06 Completed 201005/04/2014 DATE: 06/09/20 11; RECORDED 05/01/20 12 9:48AM BY ANTHONY GALVEZ ON/ADDEN DUM Not Available [facility] 4 06:38:55 Disorder of hair AND/OR hair follicle Completed 201105/04/2014 RECORDED 05/01/20 12 9:48AM BY KATY CATALAN I ANNOTATI ON/ADDEN DUM Not Available [facility] 4 06:38:55 Adult health examinat ion Completed 201305/04/2014 RECORDED 12/24/19 14 8:19AM BY KATY CATALAN I ANNOTATI ON/ADDEN DUM Not Available [facility] 4 06:38:55 Well child 165704834 Completed 201105/04/2014 RECORDED 05/01/20 12 9:48AM BY KATY CATALAN I ANNOTATI ON/ADDEN DUM Not Available [facility] 4 06:38:55 Irritabl e bowel syndrome 15975902 Completed 201105/04/2014 RECORDED 07/08/20 12 11:19AM BY KATY CATALAN I ANNOTATI ON/ADDEN DUM Not Available [facility] 4 06:38:56 Laborato ry procedur e performe d 525978227 Completed 201305/26/2014 RECORDED 04/02/20 14 2:51PM BY NATA RIVERS, LAB REQ Scooter Amador MD [address] [address], [facility] [place], [address] , [facility] 4 12:00:02 Primary malignan t neoplasm of uterine cervix 429392914 Completed 201205/04/2014 AGE 17, LASER REMOVAL; RECORDED 10/08/19 13 11:20AM BY SIXTO GALVEZATI ON/ADDEN DUM Not Available [facility] 4 06:38:56 Administ ration of bacteria l and viral vaccine Completed 200705/04/2014 RECORDED 08/06/20 08 2:05PM BY GM SEAMAN, OFFICE VISIT Not Available [facility] 4 06:38:56 Onychomy cosis due to dermatop hyte 154057816 Completed 201105/04/2014 RECORDED 05/01/20 12 9:48AM BY SIXTO GALVEZATI ON/ADDEN DUM Not Available [facility] 4 06:38:56 Knee pain Completed 201105/04/2014 RECORDED 05/01/20 12 9:48AM BY ANTHONY GALVEZ ON/ADDEN DUM Not Available [facility] 4 06:38:56 Immuniza tion refused Completed 201305/04/2014 RECORDED 12/24/19 14 8:19AM BY ANTHONY GALVEZ ON/ADDEN DUM Not Available [facility] 4 06:38:56 Posterio r rhinorrh ea 10815820 Completed 201105/04/2014 RECORDED 05/01/20 12 9:48AM BY ANTHONY GALVEZ ON/ADDEN DUM Not Available [facility] 4 06:38:56 Eruption 469578059 Completed 200805/04/2014 RECORDED 01/13/20 09 10:58AM BY MIRYAM CELIS [place], ANTHONY ON/ADDEN DUM Not Available [facility] 4 06:38:56 Procedur e refused Completed 201105/04/2014 RECORDED 05/01/20 12 9:48AM BY ANTHONY GALVEZ ON/ADDEN DUM Not Available [facility] 4 06:38:56 Speciali zed medical examinat ion Completed 201105/04/2014 RECORDED 05/01/20 12 9:48AM BY ANTHONY GALVEZ ON/ADDEN DUM Not Available [facility] 4 06:38:56 Screenin g for malignan t neoplasm of cervix Completed 201105/04/2014 RECORDED 05/01/20 12 9:48AM BY ANTHONY GALVEZ ON/ADDEN DUM Not Available [facility] 4 06:38:56 Chronic sinusiti s 64735175 Completed 201105/04/2014 RECORDED 05/01/20 12 9:48AM BY ANTHONY GALVEZ ON/ADDEN DUM Not Available [facility] 4 06:38:56 Trichomo nal vulvovag initis 28068877 Completed 201005/04/2014 DATE: 03/02/20 11; RECORDED 05/01/20 12 9:48AM BY KATY CATALAN I, ANNOTATI ON/ADDEN DUM Not Available [facility] 4 06:38:56 Acute upper respirat ory infectio n 16332462 Completed 201205/04/2014 RECORDED 10/08/19 13 11:24AM BY KATY CATALAN I, ANNOTATI ON/ADDEN DUM Not Available [facility] 4 06:38:56 Urinary incontin ence 277577388 Completed 200705/04/2014 RESOLVED DATE: 04/23/20 08; RECORDED 04/23/20 08 10:15AM BY SCOOTER SILVA MD, ANNOTATI ON/ADDEN DUM Not Available [facility] 4 06:38:56 Wheezing 59042517 Completed 201205/04/2014 IMPRESSI ON: NO H/O ASTHMA. SHE WILL CALL IF SHE NEEDS TO USE THE PROAIR DAILY.; RECORDED 10/08/19 13 11:24AM BY KATY CATALAN I, ANNOTATI ON/ADDEN DUM Not Available [facility] 4 06:38:56 Type 2 diabetes mellitus 23110554 Completed 01/28/2015 Deja Murphy PA-C [address] [facility] [address], [place], [address] , [facility] 7 13:55:02 Cough 76674204 Completed 05/24/2017 Xi rodriguez, [facility] 7 09:53:54 Nasal congesti on 32792595 Completed 05/24/2017 Xi rodriguez, [facility] 7 09:53:58 Type 2 diabetes mellitus 18820354 Completed 07/06/2017 Deja Murphy PA-C [address] [facility] [address], [place], [address] , [facility] 7 13:55:02 Gynecolo gic examinat ion Active Scooter Amador MD [address], [place], [address] , [facility] 5 06:59:59 Chest pain 77383059 Completed 05/24/2017 Xi rodriguez, [facility] 7 09:53:51 Chronic obstruct meri pulmonar y disease 74801968 Active 2016 Rubén Murphy PA-C [address], [place], [address] , [facility] 7 13:22:11 Uncontro lled type 2 diabetes mellitus 921244662 Active 2016 Deja Murphy PA-C [address], [place], [address] , [facility] 7 13:55:08 Hyperlip idemia 40951892 Active 2020 cSooter Amador MD [address] [facility] [address], [place], [address] , [facility] 1 19:28:56 Problem Notes None recorded. Procedures Surgical History Date Name Laterality Status Provider Name and Address Organization Details Recorded Time 3 Diabetic Foot Exam (Monofilament) completed Scooter Amador MD [address] [address], [place], [address], [facility] 04/24/2023 15:00:38 2 Diabetic Foot Exam (Monofilament) completed Scooter Amador MD [address] [address], [place], [address], [facility] 12/13/2021 14:39:14 1 Diabetic Foot Exam (Monofilament) completed Scooter Amador MD [address] [address], [place], [address], [facility] 02/07/2021 15:13:59 1 Diabetic Foot Exam (Monofilament) completed Scooter Amador MD [address], [address], [facility] 10/15/2020 13:38:53 0 Diabetic Foot Exam (Monofilament) completed Scooter Amador MD [address], [address], [facility] 04/14/2020 17:17:01 9 Diabetic Foot Exam (Monofilament) completed Scooter Amador MD [address], [address], [facility] 03/20/2019 15:31:43 8 Diabetic Foot Exam (Monofilament) completed Scooter Amador MD [address], [address], [facility] 02/28/2018 07:11:43 6 Most Recent Mammogram completed Magda Marcus [facility] 01/07/2016 08:42:52 6 Mammogram Screening completed Magda Marcus [facility] 01/07/2016 08:42:52 5 Date of Last Pap Smear completed Cinthia Smith [facility] 03/22/2017 16:18:21 4 Nebulizer tx completed MARIE Pfeiffer [address], [address], [facility] 07/15/2014 14:31:36 Other completed Miryam boone [facility] 07/15/2014 14:13:40 Imaging Results None recorded. Procedure Notes None recorded. Medical Equipment None Reported. Allergies Allergen ID Allergen Name Allergen Category Reaction Reaction Severity Criticality Documentation Date Start Date Code Code System Note Provider Name and Address Organization Details Recorded Time 55214 Actos medicatio n edema moderate Not available 06/29/2021 86724 2 RxNorm Scooter dean MD [address] [facility] [address], [facility], [address], [facility] 1 09:25:21 Medications Name Sig Start Date [...] Not Available No t Available prednison e 20 mg tablet Take 2 tablets every day by oral route as directed for 5 days. 01/26 completed Not Available Not Available Not Available lovastati n 40 mg tablet TAKE [...] 03/07/20 11 9:12AM BY SCOOTER SILVA MD, ANNOTATI ON/ADDEN DUM; Not Available Not Available Not [...] RECORDED 02/03/20 10 2:24PM BY ANTHONY TUCKER ON/LYRIC DUM; Not Available Not Available Not Available imiquimod 5 % topical cream packet APPLY 2 PACKETS TO THE AFFECTED AREA TOPICALL Y EVERY NIGHT AT BEDTIME FOR 2 WEEKS 04/24 completed on hold Not Available Not Available Not Available erythromy manda 5 mg/gram (0.5 %) [...] hr TAKE 2 TABLETS BY MOUTH EVERY EVENING active Not Available [...] Not Available Not Available No t Available cefuroxim e axetil 500 mg tablet Take 1 tablet twice a day by oral route as directed for 5 days. 01/26 completed Not Available Not Available Not Available lovastati n 20 mg tablet Take 1 tablet every day by oral route. 10/31 completed Not Available Not Available Not Available methylpre dnisolone 4 mg tablets in a dose pack TAKE DIRECTED ON PACKAGE 06/06 /2018 completed Not Available Not Available Not Available Vitamin C 250 mg tablet Take 1 tablet every day by oral route for 90 days. 2024 active Not Available Not Available Not Keith labalex pioglitaz one 30 mg tablet TAKE ONE TABLET BY MOUTH DAILY 02/14 completed Seems like it was replaced by [facility] Not Available Not Available Not Available [...] Not Available Not Available Not Available FreeStyle Clinton kit DAILY 07/03 completed RECORDED 07/15/20 13 10:18AM BY KATY CATALAN I, MEDICATI ON AUTO-ASHELY CTIVATIO N;DX=DM2 Not Available Not Available Not Available Tussin CF Cough-Col d 5 mg-10 mg-100 mg/5 [...] Available Not Available Not Available Robitussi n DM Max 10 mg-200 mg/5 mL [...] Updated DateTime 3 165.74 cm 33 kg/m2 91918.4 7 g 91 /min 96 % 96 % 98.2 [degF] 140 mm[Hg] 78 mm[Hg] Janny Zapata MA [facility] 3 13:32:43 Date Recorded Body height Body mass index (BMI) Body weight Heart rate Oxygen saturation Oxygen saturation in Arterial blood by Pulse oximetry Body temperature Systolic blood pressure Diastolic blood pressure Provider Name and Address Organization Details Last Updated DateTime 4 165.74 cm 33.4 kg/m2 65299.6 6 g 84 /min 96 % 96 % 98.1 [degF] 121 mm[Hg] 74 mm[Hg] Evangelina tinajero MA [facility] 4 11:43:59 Date Recorded Body height Body mass index (BMI) Body weight Heart rate Oxygen saturation Oxygen saturation in Arterial blood by Pulse oximetry Body temperature Systolic blood pressure Diastolic blood pressure Provider Name and Address Organization Details Last Updated DateTime 4 165.74 cm 34.5 kg/m2 04163.8 1 g 105 /min 95 % 95 % 98 [degF] 143 mm[Hg] 83 mm[Hg] Janny Zapata MA [facility] 4 14:37:07 Date Recorded Body height Provider Name an d Address Organization Details Last Updated DateTime 01/22/2025 165.74 cm Janny Zapata MA [facility] 01/22/2025 15:20:54 Social History Question Answer Notes LastModified by Organizat ion Details LastModified Time Tobacco Smoking Status Current Every Day Smoker Not Available [facility] 07/27/2020 03:36:37 Do You Have An Advance Directive? Yes [id number] Information not available 07/27/2020 Is Blood Transfusion Acceptable In An Emergency? Yes [id number] Information not available 07/27/2020 What Is Your Level Of Caffeine Consumption? Moderate [id number] Information not available 07/27/2020 How Much Tobacco Do You Chew? None [id number] Information not available 07/27/2020 What Type Of Diet Are You Following? DIABETIC [id number] Information not available 07/27/2020 Which Illicit Or Recreational Drugs Have You Used? No [id number] Information not available 07/27/2020 Education 8 Information n ot available 05/26/2014 Are There Any Guns Present In Your Home? No [id number] Information not available 07/27/2020 Hard Of Hearing [...] Material From Your Doctor Or Pharmacy? Never [facility] Information not available 08/10/2015 Have You Served In The ? No [place] Information not available 10/31/2016 Have You Or Anyone In Your Household Had Any Of The Following Symptoms In The Last 14 Days: Sore Throat, Cough, Chills, Body Aches For Unknown Reasons, Shortness Of Breath For Unknown Reasons, Loss Of Smell, Loss Of Taste, Fever At Or Greater Than 100 Degrees Fahrenheit? No [email or web address] Information not available 04/13/2020 Are You Or Anyone In Your Household A Health Care Provider Or Emergency Responder? No [email or web address] Information not available 04/13/2020 To The Best Of Your Knowledge Have You Been In Close Proximity To Any Individual Who Tested Positive For COVID-19? No [email or web address] Information not available 04/13/2020 Have You Recently Traveled To A COVID-19 High Risk Area Or Gathering In The Last 10 Days? No [email or web address] Information not available 10/14/2020 What Was The Date Of Your Most Recent Tobacco Screening? 01/22/2025 Information not available 01/22/2025 How Many Children Do You Have? 2 [id number] Information not available 07/27/2020 What Is Your Current Pack Years? 30ormorepacky ears [id number] Information not available 07/27/2020 Do You Use Protection During Sex? No [id number] Information not available 07/27/2020 Seat Belts Used Routinely Yes Information not available 08/10/2015 Are You Sexually Active? Yes [id number] Information not available 07/27/2020 Smoke Alarm In Home Yes Information not available 08/10/2015 At What Age Did You Start Smoking Tobacco? 17 [id number] Information not available 07/27/2020 Are You Passively Exposed To Smoke? Yes Information no t available 07/15/2020 How Much Tobacco Do You Smoke? 2 PPD Information not available 01/22/2025 General Stress Level High Information not available 05/26/2014 Do You Use Sunscreen Routinely? Yes [id number] Information not available 07/27/2020 How Many Years Have You Smoked Tobacco? 32 Information not available 01/22/2025 Sex: Unknown Functional Status Question Answer Note LastModified by Organizat ion Details LastModified Time Do you use any illicit or recreational drugs? No Information not available 12/13/2021 Do you or have you ever used any other forms of tobacco or nicotine? No Information not available 12/13/2021 What is your level of alcohol consumption? Occasional [id number] Information not available 07/27/2020 Do you or have you ever used smokeless tobacco? Never used smokeless tobacco [id number] Information not available 07/27/2020 Are you currently employed? No [id number] Information not available 07/27/2020 Are you able to walk? YESWOREST Information not available 12/13/2021 Are you able to care for yourself? No [id number] Information not available 07/27/2020 Do you or have you ever used e-cigarettes or vape? Never used electronic cigarettes [id number] Information not available 07/27/2020 What is your exercise level? Occasional [id number] Information not available 07/27/2020 Mental Status None recorded. Family History Relationship Description Onset Age of this Age Resolved Age Notes LastModified by Organization Details LastModified Time Mother History of malignant neoplasm [email or web address] Not available 08/10 14:34:22 Maternal Grandfather Elvis fleming [email or web address] Not available 08/10 14:34:22 Father Harmful pattern of use of alcohol [email or web address] Not available 05/27 15:27:47 Medical History No medical history recorded. Gynecological History Statement/Question Response Date of Last Pap Smear 08/10/2015 Most Recent Mammogram 01/06/2016 Obstetrics History GPAL:G 0 P 0 0 0 0 Immunizations Vaccine Type Date Status Note Provider Name and Address Organization Details Recorded Time pneumococcal polysaccharide PPV23 015 completed Not Available [facility] 10/11/2019 02:21:41 COVID-19, mRNA, LNP-S, PF, 30 mcg/0.3 mL dose 021 completed GM Vazquez, [facility] 06/28/2021 15:21:04 COVID-19, mRNA, LNP-S, PF, 30 mcg/0.3 mL dose 021 completed GM Vazquez, [facility] 06/28/2021 15:21:23 Td (adult), 2 Lf tetanus toxoid, preservative free, adsorbed 019 completed Not Available [facility] 10/11/2019 02:21:30 Influenza, split virus, quadrivalent, PF 020 cancelled patient objection GM Richards, [facility] 07/15/2020 14:31:12 Influenza, split virus, trivalent, preservative 008 completed Not Available [facility] 04/07/2014 14:07:42 Tdap 008 completed Not Available [facility] 04/07/2014 14:07:42 Influenza, split virus, trivalent, preservative 010 completed Not Available [facility] 04/07/2014 14:07:42 Influenza, split virus, trivalent, preservative 011 completed Not Available [facility] 04/07/2014 14:07:43 Past Encounters Encounter ID Performer Location Encounter Start Date Encounter Closed Date Diagnosis/Indication Diagnosis SNOMED-CT Code Diagnosis ICD10 Code Diagnosis Note [id number] autoEComm erce [address] [facility] [place] [address] 11/19/2006 00:00:00 [id number] autoEComm erce [address] [facility], [address] [place] [address] 12/10/2006 00:00:00 [id number] autoEComm erce [address] [facility] [place] [address] 02/22/2007 00:00:00 [id number] autoEComm erce [address] [facility] [address] [place] [address] 08/24/2006 00:00:00 [id number] autoEComm erce [address] [facility] [address] [place] [address] 06/22/2006 00:00:00 [id number] autoEComm erce [address] [facility] [place] [address] 06/04/2006 00:00:00 [id number] autoEComm erce [address] [facility] [place] [address] 03/25/2007 00:00:00 [id number] autoEComm erce [address] [facility] [place] [address] 06/05/2007 00:00:00 [id number] autoEComm erce [address] [facility] [place] [address] 10/25/2007 00:00:00 [id number] autoEComm erce [address] [facility] [place] [address] 01/22/2008 00:00:00 [id number] autoEComm erce [address] [facility] [place] [address] 04/23/2008 00:00:00 [id number] autoEComm erce [address] [facility],[address] [place] [address] 08/06/2008 00:00:00 [id number] autoEComm erce [address] [facility],[address] [place] [address] 08/08/2008 00:00:00 [id number] autoEComm erce [address] [facility],[address] [place] [address] 10/09/2008 00:00:00 [id number] autoEComm erce [address] [facility] [place] [address] 12/11/2008 00:00:00 [id number] autoEComm erce [address] [facility] [place] [address] 01/12/2009 00:00:00 [id number] autoEComm erce [address] [facility] [place] [address] 04/26/2009 00:00:00 [id number] autoEComm erce [address] [facility] [place] [address] 07/29/2009 00:00:00 [id number] autoEComm erce [address] [facility] [place] [address] 09/07/2009 00:00:00 [id number] autoEComm erce [address] [facility] [place] [address] 02/09/2010 00:00:00 [id number] autoEComm erce [address] [facility] [place] [address] 03/11/2010 00:00:00 [id number] autoEComm erce [address] [facility] [place] [address] 05/31/2010 00:00:00 [id number] autoEComm erce [address] [facility] [place] [address] 06/21/2010 00:00:00 [id number] autoEComm erce [address] [facility],[address] [place] [address] 08/24/2010 00:00:00 [id number] autoEComm erce [address] [facility] [place] [address] 09/12/2010 00:00:00 [id number] autoEComm erce [address] [facility] [place] [address] 11/24/2010 00:00:00 [id number] autoEComm erce [address] [facility],[address] [place] [address] 01/20/2011 00:00:00 [id number] autoEComm erce [address] [facility],[address] [place] [address] 03/02/2011 00:00:00 [id number]EComm er[address] [place] [address] 06/09/2011 00:00:00 [id number] autoEComm erce [address] [facility] [address] [place] [address] 10/03/2011 00:00:00 [id number] autoEComm erce [address] [facility],[address] [place] [address] 02/05/2012 00:00:00 [id number] autoEComm erce [address] [facility] [address] [place] [address] 03/05/2012 00:00:00 [id number] autoEComm erce [address] [facility],[address] [place] [address] 05/01/2012 00:00:00 [id number] autoEComm erce [address] [facility],[address] [place] [address] 07/08/2012 00:00:00 [id number] autoEComm erce [address] [facility],[address] [place] [address] 10/08/2012 00:00:00 [id number] autoEComm erce [address] [facility],[address] [place] [address] 01/09/2013 00:00:00 [id number] autoEComm erce [address] [facility],[address] [place] [address] 07/15/2013 00:00:00 [id number] autoEComm erce [address] [facility],[address] [place] [address] 01/05/2014 00:00:00 [id number] autoEComm erce [address] [facility],[address] [place] [address] 11/09/2009 00:00:00 [id number] autoEComm erce [address] [facility],[address] [place] [address] 04/09/2013 00:00:00 [id number] autoEComm erce [address] [facility] [place] [address] 11/28/2011 00:00:00 [id number] autoEComm erce [address] [facility] [place] [address] 09/15/2011 00:00:00 [id number] autoEComm erce [address] [facility] [facility] [place] [address] 07/11/2011 00:00:00 [id number] Scooter Amador MD Main Office [address] [address] [place] [address] 05/26/2014 11:43:44 05/26/2014 12:22:40 Type 2 diabetes mellitus 62307432 Pure hypercholesterolemia 958438302 Schizophrenia 72061010 Tobacco de pendence syndrome 41140972 [id number] MARIE Pfeiffer Main Office [address] [address] [place] [address] 07/15/2014 13:46:49 07/15/2014 14:50:06 Allergic rhinitis 66292504 Cough 72963958 Cough, congestion , insp/ exp wheezing, hoarse voice, tachycardi a, sat 93% RA. Will treat with prednisone burst and zpak for possible bacterial infection. Also recommend patient use her inhaler 2 puffs every 4 hours as needed for cough/ wheezing. Stay well hydrated, humidifier as needed, rest, tylenol or ibuprofen as needed for pain/ fever. Nasal congestion 15324941 [id number] Scooter Amador MD Main Office [address] [place] [address] [place] [address] 01/27/2015 14:32:48 01/27/2015 15:55:21 Adult health examination 680168998 Administra tion of pneumococcal vaccine 44586957 Type 2 irasema betes mellitus without complication 784914844 will increase her metformin from 500 bid to 1000 bid since her A1C is no longer at goal. Screening for malignant neoplasm of breast 582342849 Pure hypercholesterolemia 957001052 will increase her dose from 20 to 40 mg since her LDL is not at goal. Schizophrenia 51999289 o n meds, living in a fpc and followed by psych. [id number] Scooter Amador MD Main Office [address] [address] [place] [address] 05/06/2015 14:03:50 05/06/2015 15:26:34 Type 2 diabetes mellitus 37104535 Pure hypercholesterolemia 253848671 will increase her dose from 20 to 40 mg since her LDL is not at goal. Allergic rhinitis 84568982 continue current mgmt [id number] Scooter Amador MD Main Office [address] [address] [place] [address] 08/10/2015 14:23:33 08/10/2015 15:23:14 Type 2 diabetes mellitus 33115372 E11.9 her A1C has been at goal in the past. She is c/w her meds. Gynecologi c examination 85164628 Z01.411 Screening for malignant neoplasm of breast 509169435 Z12.39 she has never had a mammogram because she has been anxious about going but states that she feels she is now ready. Tobacco de pendence syndrome 12113728 F17.290 we spoke about quitting. She stopped smoking in the past during each of her pregnancie s. [id number] Scooter Amador MD Main Office [address] [address] [place] [address] 11/09/2015 14:31:59 11/09/2015 15:27:25 Type 2 diabetes mellitus 56376129 E11.9 her A1C is at goal in the past. She is c/w her meds. Schizophrenia 52649204 F 20.3 on meds, living in a fpc and followed by psych. Tobacco de pendence syndrome 96009861 F17.290 we spoke about quitting. She stopped smoking in the past during each of her pregnancie s. Pure hypercholesterolemia 034985705 E78.0 we increased her dose from 20 to 40 mg since her LDL was not at goal. Recheck fasting lipid level. Chest pain 28441683 R07. 9 she is at high risk for heart disease because of her smoking and diabetes [id number] Scooter Amador MD Main Office [address] [address] [place] [address] 02/16/2016 12:45:58 02/16/2016 13:25:59 Type 2 diabetes mellitus 21325217 E11.9 her A1C is at goal in the past. She is c/w her meds. Schizophrenia 46942068 F 20.3 on meds, living in a fpc and followed by psych. [id number] Deja Murphy PA-C Main Office [address] [address] [place] [address] 06/30/2016 15:03:47 06/30/2016 15:45:43 Injury of finger 93611718 S69.82XA L big finger injury due to fall. XRAys to r/o fracture. Immobiliza tions with splint, ice several times daily and NSAIDs as directed for 7-10 days. referral to hand specialist . [id number] Deja Murphy PA-C Main Office [address] [address] [place] [address] 09/22/2016 15:06:27 09/22/2016 16:05:08 Cough 89632282 R05 Acute pharyngitis 024782 003 J02.9 Acute sinusitis 62874342 J01.90 Wheezing 68298937 R06.2 [id number] Scooter Amador MD Main Office [address] [address] [place] [address] 10/31/2016 13:40:19 10/31/2016 14:46:59 Adult health examination 763564378 Z00.00 UTD with immunizati ons. Had a PAP done Jul 2015. Type 2 irasema betes mellitus 10502865 E11.9 her A1C is a little above goal. She is c/w her meds. She will try to make some changes and we will f/u in 3 months w/o making any changes in meds right now. We will make an eye appointmen t for her. Schizophrenia 45311213 F 20.3 on meds, living in a fpc and followed by psych. Tobacco de pendence syndrome 43771155 F17.290 we spoke about quitting. She stopped smoking in the past during each of her pregnancie s. Hyperlipidemia 06302320 E78.5 We increased her med at a previous visit and will recheck her fasting lipid level. [id number] Rubén Murphy PA-C Main Office [address] [place] [address] 12/25/2016 11:34:50 12/25/2016 12:20:54 Acute conjunctivitis 40750625 H10.33 Nasal congestion 3128840 0 R09.81 [id number] Scooter Amador MD Main Office [address] [facility] [address] [place] [address] 03/06/2017 12:39:50 03/06/2017 13:33:42 Type 2 diabetes mellitus 93626171 E11.9 Her A1C continues to rise as does her weight. We will add januvia to her regimen. Schizophrenia 35931797 F 20.3 on meds, living in a fpc and followed by psych. [id number] Rubén Muprhy PA-C Main Office [address] [facility] [address] [place] [address] 05/10/2017 15:11:49 05/10/2017 16:27:12 Sore throat 295110798 J02.9 Pneumonia 694673638 J18. 9 Wheezing 56422050 R06.2 is running low on proair - has used it past few days - will renew [id number] Rubén Murphy PA-C Main Office [address] [facility] [address] [place] [address] 05/24/2017 09:33:03 05/24/2017 11:17:36 Dyspnea 553496304 R06.00 much improved p pna rx pt [...] gums - it has helped before Pneumonia 882958414 J18. 9 resolved s/p rx Tobacco de pendence syndrome 71462361 F17.200 strongly encouraged tob cessation - she states she will try ankit gums again - this had worked for her in the past Cough 79880721 R05 most likely d/t prolonged tobacco exp. - see below Chronic ob structive pulmonary disease 23093377 J44.9 see above [id number] Scooter Amador MD Main Office [address] [address] 06/06/2017 14:22:12 06/06/2017 16:18:04 Type 2 diabetes mellitus 99805754 E11.9 Since her A1C was rising we did a script for januvia which was not covered by her insurance. We then did a script for actos which she only filled about 2-3 weeks ago. Her A1C has come down slightly so we will not make any changes at this time. Chronic ob structive pulmonary disease 00887496 J44.9 We discussed quitting smoking to help prevent further progressio n. Since she denies SOB and exam is normal we will not start any meds but will monitor her function. [id number] Deja Murphy PA-C Main Office [address] [address] 07/06/2017 12:59:15 07/06/2017 14:07:16 Uncontrolled type 2 diabetes mellitus 795418697 E11.65 Total time spent teaching and coordinati [...] be set up to see notionist at [facility]. Pt. was advised to start exercise [...] m. Body mass index 30+ - obesity 325914995 Z68.34 Obesity 219869017 E66.9 [id number] Scooter Amador MD Main Office [address] [address] 09/05/2017 12:48:05 09/05/2017 13:58:41 Uncontrolled type 2 diabetes mellitus 812978304 E11.65 Excellent improvemen t in A1C which is now less than 7.0 again (down to 6.8). She will continue with current mgmt since it is working. Dysuria 76731987 R30.0 No longer with symptoms so will send culture and will not do abx for now. She was advised to drink more fluids. Schizophrenia 89636331 F 20.3 on meds, living on her own with supervisio n and followed by psych. [id number] Deja Murphy PA-C Main Office [address] [facility] [address] [place] [address] 10/23/2017 14:27:22 10/23/2017 15:48:51 Uncontrolled type 2 diabetes mellitus 290615676 E11.65 STable type II Diabetes w/o complicati ons. Continue current meds. Discussed lowering calories even further and increasing exercise activity. Test glucose 1 time per day and bring glucose log to next visit. F/u 3 m. Repeat labs. Upper resp iratory infection 16028848 J06.9 Wheezing 44156747 R06.2 Chronic ob structive pulmonary disease 41138844 J44.9 Body mass index 30+ - obesity 134567786 E66.01 Z68.35 [id number] Scooter Amador MD Main Office [address] [facility] [address] [place] [address] 02/27/2018 13:02:09 02/27/2018 14:22:54 Adult health examination 561647492 Z00.00 UTD with immunizati ons. Had a PAP done Jul 2015 and will return for a PAP Genital warts 982636917 A63.0 Will try topical treatment and if persists will Uncontroll ed type 2 diabetes mellitus 349490061 E11.65 A1C continues to be at goal below 7.0 and is currently at 6.3 . She will continue with current mgmt since it is working. [id number] Scooter Amador MD Main Office [address] [facility] [address] [place] [address] 06/06/2018 12:57:48 06/06/2018 13:58:46 Uncontrolled type 2 diabetes mellitus 950526083 E11.65 A1C continues to be at goal below 7.0 and is currently at 6.6. She will continue with current mgmt since it is working. Schizophrenia 64802306 F 20.3 on meds, living on her own with supervisio n and followed by psych. [id number] Scooter Amador MD Main Office [address] [address] 08/22/2018 13:25:23 08/22/2018 14:17:54 Acute pharyngitis 814041418 J02.9 Cough 88286081 R05 She will use robitussin prn. [id number] Scooter Amador MD Main Office [address] [address] 03/20/2019 15:00:36 03/20/2019 15:56:26 Uncontrolled type 2 diabetes mellitus 874524704 E11.65 A1C continues to be at goal below 7.0 and is currently at 6.7. She will continue with current mgmt since it is working. Schizophrenia 93255898 F 20.3 on meds, [facility]. Chronic ob structive pulmonary disease 22910407 J44.9 Continues to smoke Requires a tetanus booster 579242356 Z23 [id number] Scooter Amador MD Main Office [address] [address] 06/23/2019 14:34:34 06/23/2019 15:59:51 Adult health examination 247268020 Z00.00 UTD with immunizati ons. Had a PAP done Jul 2015 and will return for a PAP Type 2 irasema betes mellitus without complication 845884825 E11.9 Body mass index 30+ - obesity 791262191 E66.01 Z68.36 Schizophrenia 76257804 F 20.3 on meds, living on her own with supervisio and followed by psych. [id number] Scooter Amador MD Main Office [address] [address] 04/13/2020 12:37:21 04/13/2020 13:38:09 Uncontrolled type 2 diabetes mellitus 671592795 E11.65 A1C continues to be at goal below 7.0 and is currently at 6.7. She will continue with current mgmt since it is working. Lateral ep icondylitis of right humerus 1336088503 52497 M77.11 Chronic ob structive pulmonary disease 29801150 J44.9 Continues to smoke Schizophrenia 90215520 F 20.3 on meds, [facility] and [facility]. Tobacco de pendence syndrome 07845112 F17.290 we spoke about quitting. She stopped smoking in the past during each of her pregnancie s. [id number] Scooter Amador MD Main Office [address] [address] 07/15/2020 14:10:04 07/15/2020 15:21:15 Adult health examination 935356304 Z00.00 UTD with immunizati ons but refuses a flu vaccine. Had a PAP done Jul 2015 and will return for a PAP Needs infl uenza immunization 011470282 Z23 Uncontroll ed type 2 diabetes mellitus 390893465 E11.65 Her diabetes is no longer uncontroll ed; her A1C today is 7.0. She was encouraged to stay with the same mgmt. Schizophrenia 36948734 F 20.3 on meds, [facility]. Tobacco de pendence syndrome 39498352 F17.290 we spoke about quitting. She stopped smoking in the past during each of her pregnancie s. Body mass index 30+ - obesity 615724123 E66.01 [id number] Scooter Amador MD Main Office [address] [address] 10/14/2020 13:41:53 10/14/2020 14:42:06 Uncontrolled type 2 diabetes mellitus 652426219 E11.65 Her A1C increased form 7.0 to 7.7. We will increase her actos from 15 to 30 mg and see her back in 3 months. Hyperlipidemia 82194665 E78.5 We increased her med at a previous visit and LDL is now at goal. Schizophrenia 69813478 F 20.3 on meds, [facility] and [facility]. Chronic ob structive pulmonary disease 51378918 J44.9 Continues to smoke [id number] Scooter Amador MD Main Office [address] [place] [address] 02/07/2021 14:23:01 02/07/2021 15:22:47 Uncontrolled type 2 diabetes mellitus 832445071 E11.65 Her A1C continues to increase despite being c/w her meds. Will increase her actos from 30 to 45 mg and she will continue metformin trajenta. Chronic ob structive pulmonary disease 78406435 J44.9 Continues to smoke Hyperlipidemia 15527976 E78.5 LDL at goal. Will check fasting lipid level. Schizophrenia 04856146 F 20.3 on meds, living on her own with supervisio n and followed by psych. [id number] Scooter Amador MD [facility] [address] [address] [place] [address] 03/17/2021 13:57:16 03/18/2021 14:44:54 Uncontrolled type 2 diabetes mellitus 422628395 E11.65 She has been having SE's since [...] in 2 months. Tobacco de pendence syndrome 40165774 F17.290 we spoke about quitting. She stopped smoking in the past during each of her pregnancie s. Anxiety 91658942 F41.9 It is doubtful that this is secondary to her actos. She will speak to her mental health provider about this. [id number] Scooter Amador MD Main Office [address] [place] [address] 06/28/2021 14:51:15 06/28/2021 15:56:27 Uncontrolled type 2 diabetes mellitus 385355605 E11.65 She was not able to tolerate the actos because of ankle swelling, nausea and bloating. She stopped this a couple of months ago and her SE's resolved. Unfortunat sheila her A1C increased from 8.1 to 9.3. We will add another po med and she understand s that she may need meds that require injections in the future. Schizophrenia 74909212 F 20.3 on meds, living on her own with supervisio n and followed by psych. Hyperlipidemia 33085651 E78.5 LDL at goal. Will check fasting lipid level next appointmen t. [id number] Scooter Amador MD Main Office [address] [facility] [address] [place] [address] 08/16/2021 13:29:39 08/16/2021 14:38:24 Tinea cruris 978059069 B35.6 Candidiasis of vagina 72 170157 B37.3 [id number] Scooter Amador MD Main Office [address] [place] [address] 12/13/2021 12:41:16 12/13/2021 13:49:23 Adult health examination 112159157 Z00.00 UTD with immunizati ons. Had a PAP done Jul 2015 and will return for a PAP. Does not want to do one today. Uncontroll ed type 2 diabetes mellitus 197323674 E11.65 She was not able to tolerate the actos because of ankle swelling, nausea and bloating. She stopped this a couple of months ago and her SE's resolved. Unfortunat sheila her A1C increased from 8.1 to 9.3. We will add another po med and she understand s that she may need meds that require injections in the future. Chronic ob structive pulmonary disease 54695103 J44.9 Continues to smoke Hyperlipidemia 46101489 E78.5 LDL at goal. Will check fasting lipid level. Schizophrenia 94824939 F 20.3 on meds, living on her own with supervisio n and followed by psych. Body mass index 30+ - obesity 450055221 E66.01 Z68.33 [id number] Scooter Amador MD Main Office [address] [facility] [address] [place] [address] 08/29/2022 13:05:29 08/29/2022 14:30:53 Uncontrolled type 2 diabetes mellitus 668654630 E11.65 She was not able to tolerate the actos because of ankle swelling, nausea and bloating. She stopped this and her SE's resolved. . We added jardiance and tradjenta and her A1C came down from 9.3 to 7.6. She will work on lifestyle changes to bring this down more. Allergic rhinitis 983852 J30.9 continue current mgmt Schizophrenia 46783620 F 20.3 on meds, living on her own with supervisio n and followed by psych. [id number] Scooter Amador MD Main Office [address] [place] [address] 04/24/2023 14:19:20 04/24/2023 15:26:54 Uncontrolled type 2 diabetes mellitus 684817088 E11.65 She was not able to tolerate the actos because of ankle swelling, nausea and bloating. She stopped this and her SE's resolved. . We added jardiance and tradjenta and her A1C came down from 9.3 to 7.6. She checks her sugars and says that they are generally in the low 100's. Schizophrenia 08693949 F 20.3 on meds, living on her own with supervisio n and followed by psych. Allergic rhinitis 367549 J30.9 continue current mgmt Chronic ob structive pulmonary disease 78472979 J44.9 Continues to smoke [id number] Scooter Amador MD Main Office [address] [place] [address] 08/07/2023 13:23:20 08/07/2023 14:27:58 Uncontrolled type 2 diabetes mellitus 904819086 E11.65 She was not able to tolerate the actos because of ankle swelling, nausea and bloating. She stopped this and her SE's resolved. . We added jardiance and tradjenta and her A1C came down from 9.3 to 7.2. She checks her sugars and says that they are generally in the low 100's. Adult heal th examination 011438609 Z00.00 UTD with immunizati ons. Had a PAP done Jul 2015 and will return for a PAP. Does not want to do one today. Screening for malignant neoplasm of colon 590150230 Z12.11 Tobacco de pendence syndrome 77271889 F17.290 we spoke about quitting. She stopped smoking in the past during each of her pregnancie s. Chronic ob structive pulmonary disease 00667116 J44.9 Continues to smoke Hyperlipidemia 23329259 E78.5 LDL at goal. Will check fasting lipid level. Schizophrenia 41840487 F 20.3 on meds, living on her own with supervisio n and followed by psych. Has some mild depression which is followed by her psych provider. [id number] Scooter Amador MD Main Office [address] [facility] [address] [facility] [place] [address] 11/23/2023 11:21:25 11/23/2023 12:21:38 Uncontrolled type 2 diabetes mellitus 357650325 E11.65 A1C increased from 7.2 to 7.3, Would like to continue on metformin and tradjenta instead of adding med, will stay consistent with exercise and trying to eat better. Does exercises in 3 sets to get through during the day. Tradjenta refilled. Schizophrenia 49085318 F 20.3 on meds, [facility] and [facility]. Allergic rhinitis 219680 04 J30.9 continue current mgmt Chronic ob structive pulmonary disease 30750307 J44.9 Continues to smoke [id number] Scooter Amador MD Main Office [address] [facility] [address] [place] [place] [address] 02/27/2024 14:25:32 02/27/2024 15:27:48 Uncontrolled type 2 diabetes mellitus 781641824 E11.65 She was not able to tolerate the Actos because of ankle swelling, nausea and bloating. She stopped this and her SE's resolved. . We added jardiance and tradjenta and her A1C came down from 9.3 to 7.2. But the jardiance is no longer on formulary. She also stopped the tradjenta for unclear reasons but will restart it. Fatigue 94806500 R53.83 Hyperlipidemia 63027978 E78.5 Last LDL at goal. Will check fasting lipid level. Schizophrenia 32767383 F 20.3 on meds, living on her own with supervisio n and followed by psych. Has some mild depression which is followed by her psych provider. [id number] Scooter Amador MD Main Office [address] [facility] [address] [facility] [place] [address] 01/20/2025 15:07:20 01/20/2025 15:45:35 [id number] Scooter Amador MD [facility] [address] [facility] [address] [facility] [place] [address] 01/22/2025 13:02:53 01/23/2025 14:51:58 Allergic rhinitis 64441864 J30.9 continue current mgmt Chronic ob structive pulmonary disease 99794888 J44.9 She has been trying to quit smoking and currently smokes less than 5 cigarettes a day. She understand s that she needs to stop completely since increasing the number of daily cigarettes will likely increase with time. She is not currently using any inhalers. As an inpatient she was given oxygen but was not discharged with it. Schizophrenia 54422539 F 20.3 on meds, living on her own with supervisio n and followed by psych. Has some mild depression which is followed by her psych provider. Tobacco de pendence syndrome 20940682 F17.290 She has cut back significan tly and knows that she needs to quit totally because of her COPD dx. Community acquired pneumonia 731755322 J15.9 She was septic and was admitted to [facility]. She was discharged to complete a course of abx and steroids. Health Concerns Section Related Observation LastModified by Organization Detai ls LastModified Time None Recorded Concern Status LastModified by Organization Details LastModified Time None Recorded Advance Directives Directive Y: Payers Encounter Date Sequence Insurance Name Policy Number Policy Chopra Covered Member ID Chopra Member ID Guarantor Name 08/07/2023 1 [place] [employer] Aura Hood [id number] Aura [place] Sana 08/07/2023 2 [place] [facility] Aura Hood [id number] Aura Hill Sana 11/23/2023 1 [place] [employer] Aura Hill Delviskaushikzander [id number] Aura [place] Sana 11/23/2023 2 [place] [facility] Aura Hood [id number] Aura [place] Sana 02/27/2024 1 [place] [employer] Aura Hill Delvistri [id number] Aura Hood 02/27/2024 2 [place] [id number] Aura Hood 01/20/2025 1 [place] [facility] Aura Hood [id number] Aura Hood 01/20/2025 2 [place] [id number] Aura Hood 01/22/2025 1 [place] [facility] Aura Hood [id number] Aura Hood 01/22/2025 2 [place] [id number] Aura Hood Notes Date Note Type Note Provider Name and Address Organization Details Recorded Time 08/07/2023 text/html Generic HPI TemplateReported bypatient.Notes:She is followed by psych and is also by the [facility]. She lives on her own with [...] falls while walking Scooter Amador MD [address] [address], [place], [address], [facility] 08/09/2023 07:47:33 11/23/2023 text/html Generic HPI TemplateReported [...] with just 2 meds. MARIE Pfeiffer [address] [address], [place], [address], [facility] 11/23/2023 12:21:58 02/27/2024 text/html Diabetes F/URepo rted [...] a problem recently. Scooter Amador MD [address] [facility] [address], [place], [address], [facility] 02/27/2024 18:37:36 01/20/2025 text/html Hospitalization Contact RecordReported bypatient.Follow UpHospital: [facility]; admit date: (Please enter in format 'MM/DD/YYYY') (01/13/2025); date of discharge: (Please enter in format 'MM/DD/YYYY') (01/20/2025); date of contact: (Please enter in format 'MM/DD/YYYY') (01/20/2025)Notes:[facility] covered inpatient stay? yes Medicare ELZBIETA with in 48 working hours? yes High Complexity code valid on or before:January Moderate Complexity code valid on or before: January HCP on file? no MOLST on file? no Discharge Summary available? yes 49 year old female with several comorbidities presented to [facility] with Shortness of breath associated with weakness. Patient reports smokes 2 packs a day. Work up revealed : sepsis secondary to PNA , including pleural effusion with acute respiratory failure . During hospital stay patient was placed on high- flow oxygen . Started on IV antibiotic antibiotics. CTA was ordered rule out PE however bilateral pleural effusions were noted. Diagnosed : COPD Smoking cessation was discussed with patient prior to discharge. Hospital stay was uneventful. Patient tolerated steriod treatment and responded well to antibiotic regimen. After a 7 day stay patient was discharge to home with additional 5 days of antibiotic and steriod regimen. Radiator Fitter updated medication list as noted. Attempted several times to complete ELZBIETA call cell number is out of services , called emergency contact number no answer, unable to leave message. Attempted to look in [facility] for any additional contact infomation no update information was noted . Patient is scheduled to follow up with provider for DM on 02/04/2025 . Scooter Amador MD [address] [address], [place], [address], [facility] 01/20/2025 15:45:32 01/22/2025 text/html Hospitalization Contact RecordReported bypatient.Follow UpHospital: [facility]; admit date: (Please enter in format 'MM/DD/YYYY') (01/13/2025); date of discharge: (Please enter in format 'MM/DD/YYYY') (01/20/2025); date of contact: (Please enter in format 'MM/DD/YYYY') (01/20/2025)Notes:[facility] care covered inpatient stay? yesMedicare ELZBIETA with in 48 working hours? yesHigh Complexity code valid on or before:JanuaryModerate Complexity code valid on or before:JanuaryHCP on file? noMOLST on file? noDischarge Summary available? yes 49 year old female with several comorbidities presented to [facility] with shortness of breath associated with weakness. Patient reports smoking 2 packs per day. Work up revealed : sepsis secondary to PNA , including pleural effusion with acute respiratory failure . During hospital stay patient was placed on high- flow oxygen . Started on IV antibiotics. CTA was ordered and she rued out for a PE however bilateral pleural effusions were noted. Diagnosed : COPD Smoking cessation was discussed with patient prior to discharge. Since she has been home she has been smoking less than 5 cigarettes a day and understands that she needs to quit totally. Hospital stay was uneventful. Patient tolerated steriod treatment and responded well to antibiotic regimen. After a 7 day stay patient was discharged to home with an additional 5 days of antibiotics and steroids. Her medication list was updated. Patient is scheduled to follow up with provider for DM on 02/04/2025 . Scooter Amador MD [id number] [facility] [address], [place], [id number], [facility] 01/24/2025 11:02:08 OBGyn Episode No OBEpisode recorded.
== END 2025-02-03 15:45 | disposition home or self-care (01) ==
LOC: HO.LABR 15:44
PROVIDERS: Visit Provider Psychiatry & Neurology Psychiatry
DX: Z79.899 Other long term (current) drug therapy (principal)
CPT/HCPCS: 36415; 85025

== ENCOUNTER 2025-02-24 14:57 | Outpatient (REF) | payer MEDICARE, MEDICAID, SELFPAY ==
[2025-02-24 15:14] LABS: Basophils Absolute Auto 0.1 X10*3/uL (0.0-0.2); Basophils Percent Auto 0.6 % (0-2); Eosinophils Absolute Auto 0.1 X10*3/uL (0.0-0.4); Eosinophils Percent Auto 0.6 % (0-4); Hematocrit 48.6 % (37.0-47.0); Hemoglobin 15.8 g/dl (12.0-16.0); Imm Gran Abs Auto 0.08 X10*3/uL (0.00-0.03); Imm Gran Pct Auto 0.7 % (0.0-0.4); Lymphocytes Absolute Auto 3.5 X10*3/uL (1.2-4.9); Lymphocytes Percent Auto 32.1 % (20-40); MANUAL DIFF FLAG SCAN; Mean Corpuscular HGB Conc 32.5 g/dl (31.0-35.0); Mean Corpuscular Volume 92.4 fL (80.0-98.0); Mean Platelet Volume 10.9 fL (9.4-12.3); Monocytes Absolute Auto 1.1 X10*3/uL (0.1-1.2); Monocytes Percent Auto 9.8 % (2-11); Neutrophils Absolute Auto 6.1 x10*3/uL (2.0-8.3); Neutrophils Percent Auto 56.2 % (45-73); PLT CLUMP 1; Red Blood Count 5.26 X10*6/uL (4.20-5.50); Red Cell Distribution Width 13.2 % (11.0-16.0); SCAN SMEAR FLAG 1
[2025-02-24 16:13] LABS: Platelet Count 184 X10*3/uL (160-400); White Blood Count 10.8 X10*3/uL (4.8-10.8)
[2025-02-24 16:14] LABS: SLIDE REVIEW VERIFIED
--- OUTSIDE RECORDS SUMMARY | 2025-02-24 16:40 | XMS_ITS | Data Portability ---
Author Organization [facility], Main Office Address [address] [place] [address] Care Team Providers Care Thread Trimmer Name Role Phone SCOOETR AMADOR Primary Care Provider VIVI COON Psychologist CIERA ROCKWELL Referring Provider [phone] Assessment Encounter Date Assessment Date Assessment LastModified by Organization Details LastModified Time 01/22/2025 01/22/2025 This service was provided using telemedicine. Patient consented to telephone visit Patient was located at home in the [facility]. Provider was located in the office. No other persons participated in the telemedicine visit except for the patient unless otherwise indicated here. RN Total time of visit was 30 minutes. [email or web address] Not available 01/24/2025 10:36:57 Plan of Treatment Reminders Order Date Submit Date Provider Last Modified By Organization Details Last Modified Time Details Appointments UV30 2024 01:00P M LESLIE TUCKER Not available Not available Not available Lab hemogl obin A1C, finger stick 2023 024 [email or web address] In-Office Order, Internal Use Only DO Not Attach Compendium DO Not Attach Compendium, Do Not Delete/merge, [id number] 02/27/2024 15:14:28 microa lbumin , urine 2023 024 OMAR [facility] (Centralized Electronic Ordering - All Locations), Patient Can Go To The Location Of Their Choice, [id number] 02/28/2024 12:06:20 LDL, direct , serum 2023 024 OMAR [facility], [address], [place], [address], 02/28/2024 12:06:19 HDL choles terol, serum 2023 024 [email or web address] [facility] (Centralized Electronic Ordering - All Locations), Patient Can Go To The Location Of Their Choice, [id number] 09/25/2024 09:12:13 CBC w/ auto diff 2023 024 OMAR [facility], [address], [place], [address], 02/28/2024 12:06:16 BMP, serum or plasma 2023 024 OMAR [facility], [address], [place], [address], 02/28/2024 12:06:17 TSH, ultra- sensit meri, serum 2023 024 OMAR [facility], [address], [place], [address], 02/28/2024 12:06:21 hemogl obin A1C, finger stick 2022 023 [email or web address] In-Office Order, Internal Use Only DO Not Attach Compendium DO Not Attach Compendium, Do Not Delete/merge, [id number] 08/07/2023 14:11:57 microa lbumin , urine 2022 023 [email or web address] [facility], [address], [place] [address], [place], [address], 08/28/2023 07:40:42 CMP, serum or plasma 2022 023 [email or web address] [facility], [address], [place] [address], [place], [address], 03/04/2024 08:06:34 lipid panel, serum 2022 023 OMAR [facility], [address], [place] [address], [place], [address], 02/28/2024 12:06:18 CBC w/ auto diff 2022 023 [email or web address] [facility], [address] [place], [address], 08/28/2023 07:40:42 Referral diabet ic ophtha lmolog y referr al - Type 2 diabet es requir ing regula r eye exams. 2022 023 [email or web address] [facility], [address], [place], [address], 02/04/2024 08:46:58 gastro entero logist referr al - Needs colon cancer screen ing 2022 023 [email or web address] Not available 08/07/2023 15:13:27 Procedures colono scopy screen ing (PROC) 2022 023 [email or web address] In-Office Order, Internal Use Only DO Not Attach Compendium DO Not Attach Compendium, Do Not Delete/merge, [id number] 08/07/2023 15:13:03 Surgeries None record ed. Imaging None record ed. Medication Orders Vitami n C 250 mg tablet 2024 025 OMAR [id number], [address] [place] [address], [id number], 01/24/2025 10:37:01 Tradje nta 5 mg tablet 2023 024 OMAR [id number], [address] [place] [address], [id number], 02/27/2024 15:14:32 Tradje nta 5 mg tablet 2023 024 [email or web address] [facility], [address] [place] [address], [id number], 02/27/2024 14:39:34 Patient TargetsNo targets recorded. Patient Instructions Encounter Date Encounter Id Patient Instructions Last Modified By Organization Details Last Modified Time 08/07/2023 [id number] deciding about using medicines to quit smoking [...] cancer [email or web address] Not available 08/07/2023 14:15:06 11/23/2023 [id number] allergies: care instructions [email or web address] Not available 11/23/2023 [...] concerns [email or web address] Not available 11/23/2023 12:04:13 02/27/2024 [id number] schizophrenia: care instructions [email or web address] Not available 02/27/2024 18:37:24 type 2 diabetes: care instructions [email or web address] Not available 02/27/2024 15:14:26 01/20/2025 [id number] I have reviewed the note and agree with the assessment and plan of care. [email or web address] Not available 01/20/2025 15:45:28 01/22/2025 [id number] deciding about using medicines to quit smoking [...] regular eye exams. Referring Physician: Scooter Amador [facility], Encounter Date: 08/07/2023 Asset Protection Specialist Referral for Screening for malignant neoplasm of colon Needs colon cancer screening Referring Physician: Scooter Amador [facility], Encounter Date: 08/07/2023 Results Created Date Observation Date Name Description Value Unit Range Abnormal Flag Note LastModifiedBy Organization Detail LastModifiedTime 08/07/20 23 08/07/2023 hemog lobin A1C, finge rstic k A1C 7.2 % 4-6 Not Available In-Office Order Internal Use Only DO Not Attach Compendium DO Not Attach Compendium, Do Not Delete/merge, [id number] 08/07/2023 13:25:15 11/23/19 24 11/23/2023 hemog lobin A1C, finge rstic k A1C 7.3 % 4-6 abnormal Not Available In-Office Order Internal Use Only DO Not Attach Compendium DO Not Attach Compendium, Do Not Delete/merge, [id number] 11/23/2023 12:17:33 02/27/20 24 02/28/2024 CBC WITH DIFFE RENTI AL/PL ATELE T WBC 9.5 x10e3 /uL 3.4-10 .8 Not Available [facility] ([facility]) [address], [place], [address], 02/28/2024 12:06:16 02/27/20 24 02/28/2024 CBC WITH DIFFE RENTI AL/PL ATELE T RBC 5.03 x10e6 /uL 3.77-5 .28 Not Available [facility] ([facility]) [address], [place], [address], 02/28/2024 12:06:16 02/27/20 24 02/28/2024 CBC WITH DIFFE RENTI AL/PL ATELE T hemoglobin 15.3 g/dL 11.1-1 5.9 Not Available [facility] ([facility]) [address], [place], [address], 02/28/2024 12:06:16 02/27/20 24 02/28/2024 CBC WITH DIFFE RENTI AL/PL ATELE T hematocrit 46.4 % 34.0-4 6.6 Not Available [facility] ([facility]) [address] [place], [address], 02/28/2024 12:06:16 02/27/20 24 02/28/2024 CBC WITH DIFFE RENTI AL/PL ATELE T MCV 92 fL 79-97 Not Available [facility] ([facility]) [address] [place], [address], 02/28/2024 12:06:16 02/27/20 24 02/28/2024 CBC WITH DIFFE RENTI AL/PL ATELE T MCH 30.4 pg 26.6-3 3.0 Not Available [facility] ([facility]) [address] [place], [address], 02/28/2024 12:06:16 02/27/20 24 02/28/2024 CBC WITH DIFFE RENTI AL/PL ATELE T MCHC 33.0 g/dL 31.5-3 5.7 Not Available [facility] ([facility]) [address], [place], [address], 02/28/2024 12:06:16 02/27/20 24 02/28/2024 CBC WITH DIFFE RENTI AL/PL ATELE T RDW 13.5 % 11.7-1 5.4 Not Available [facility] ([facility]) [address], [place], [address], 02/28/2024 12:06:16 02/27/20 24 02/28/2024 CBC WITH DIFFE RENTI AL/PL ATELE T platelets 222 x10e3 /uL 150-45 0 Not Available [facility] ([facility]) [address], [place], [address], 02/28/2024 12:06:16 02/27/20 24 02/28/2024 CBC WITH DIFFE RENTI AL/PL ATELE T neutrophils 47 % not estab. Not Available [facility] ([facility]) [address], [place], [address], 02/28/2024 12:06:16 02/27/20 24 02/28/2024 CBC WITH DIFFE RENTI AL/PL ATELE T lymphs 44 % not estab. Not Available [facility] ([facility]) [address], [place], [address], 02/28/2024 12:06:16 02/27/20 24 02/28/2024 CBC WITH DIFFE RENTI AL/PL ATELE T monocytes 8 % not estab. Not Available [facility] ([facility]) [address], [place], [address], 02/28/2024 12:06:16 02/27/20 24 02/28/2024 CBC WITH DIFFE RENTI AL/PL ATELE T eos 1 % not estab. Not Available [facility] ([facility]) [address], [place], [address], 02/28/2024 12:06:16 02/27/20 24 02/28/2024 CBC WITH DIFFE RENTI AL/PL ATELE T basos 0 % not estab. Not Available [facility] ([facility]) [address] [place], [address], 02/28/2024 12:06:16 02/27/20 24 02/28/2024 CBC WITH DIFFE RENTI AL/PL ATELE T immature cells CHIEF FINANCIAL OFFICER Not Available [facility] ([facility]) [address] [place], [address], 02/28/2024 12:06:16 02/27/20 24 02/28/2024 CBC WITH DIFFE RENTI AL/PL ATELE T neutrophils (absolute) 4.4 x10e3 /uL 1.4-7. 0 Not Available [facility] ([facility]) [address] [place], [address], 02/28/2024 12:06:16 02/27/20 24 02/28/2024 CBC WITH DIFFE RENTI AL/PL ATELE T lymphs (absolute) 4.2 x10e3 /uL 0.7-3. 1 above high normal Not Available [facility] ([facility]) [address] [place], [address], 02/28/2024 12:06:16 02/27/20 24 02/28/2024 CBC WITH DIFFE RENTI AL/PL ATELE T monocytes(ab solute) 0.7 x10e3 /uL 0.1-0. 9 Not Available [facility] ([facility]) [address] [place], [address], 02/28/2024 12:06:16 02/27/20 24 02/28/2024 CBC WITH DIFFE RENTI AL/PL ATELE T eos (absolute) 0.1 x10e3 /uL 0.0-0. 4 Not Available [facility] ([facility]) [address] [facility] [place], [address], 02/28/2024 12:06:16 02/27/20 24 02/28/2024 CBC WITH DIFFE RENTI AL/PL ATELE T baso (absolute) 0.0 x10e3 /uL 0.0-0. 2 Not Available [facility] ([facility]) [address], [place], [address], 02/28/2024 12:06:16 02/27/20 24 02/28/2024 CBC WITH DIFFE RENTI AL/PL ATELE T immature granulocytes 0 % not estab. Not Available [facility] ([facility]) [address], [place], [address], 02/28/2024 12:06:16 02/27/20 24 02/28/2024 CBC WITH DIFFE RENTI AL/PL ATELE T immature grans (abs) 0.0 x10e3 /uL 0.0-0. 1 Not Available [facility] ([facility]) [address], [place], [address], 02/28/2024 12:06:16 02/27/20 24 02/28/2024 CBC WITH DIFFE RENTI AL/PL ATELE T NRBC CHIEF FINANCIAL OFFICER Not Available [facility] ([facility]) [address], [place], [address], 02/28/2024 12:06:16 02/27/20 24 02/28/2024 CBC WITH DIFFE RENTI AL/PL ATELE T hematology comments: CHIEF FINANCIAL OFFICER Not Available [facility] ([facility]) [address], [place], [address], 02/28/2024 12:06:16 02/27/20 24 02/28/2024 BASIC METAB OLIC PANEL (8) glucose 151 mg/dL 70-99 above high normal Not Available [facility] ([facility]) [address], [place], [address], 02/28/2024 12:06:17 02/27/20 24 02/28/2024 BASIC METAB OLIC PANEL (8) BUN 6 mg/dL 6-24 Not Available [facility] ([facility]) [address] [facility] [place], [address], 02/28/2024 12:06:17 02/27/20 24 02/28/2024 BASIC METAB OLIC PANEL (8) creatinine 0.51 mg/dL 0.57-1 .00 below low normal Not Available [facility] ([facility]) [address] [facility] [place], [address], 02/28/2024 12:06:17 02/27/20 24 02/28/2024 BASIC METAB OLIC PANEL (8) eGFR 114 mL/mi n/1.7 3 >59 Not Available [facility] ([facility]) [address] [facility] [place], [address], 02/28/2024 12:06:17 02/27/20 24 02/28/2024 BASIC METAB OLIC PANEL (8) BUN/creatini ne ratio 12 9-23 Not Available [facility] ([facility]) [address] [facility] [place], [address], 02/28/2024 12:06:17 02/27/20 24 02/28/2024 BASIC METAB OLIC PANEL (8) sodium 141 mmol/ L 134-14 4 Not Available [facility] ([facility]) [address] [place], [address], 02/28/2024 12:06:17 02/27/20 24 02/28/2024 BASIC METAB OLIC PANEL (8) potassium 4.6 mmol/ L 3.5-5. 2 Not Available [facility] ([facility]) [address] [facility] [place], [address], 02/28/2024 12:06:17 02/27/20 24 02/28/2024 BASIC METAB OLIC PANEL (8) chloride 98 mmol/ L 96-106 Not Available [facility] ([facility]) [address] [facility] [place], [address], 02/28/2024 12:06:17 02/27/20 24 02/28/2024 BASIC METAB OLIC PANEL (8) carbon dioxide, total 31 mmol/ L 20-29 above high normal Not Available [facility] ([facility]) [address] [facility] [place], [address], 02/28/2024 12:06:17 02/27/20 24 02/28/2024 BASIC METAB OLIC PANEL (8) calcium 9.8 mg/dL 8.7-10 .2 Not Available [facility] ([facility]) [address] [facility] [place], [address], 02/28/2024 12:06:17 02/27/20 24 02/28/2024 LIPID PANEL cholesterol, total 178 mg/dL 100-19 9 Not Available [facility] ([facility]) [address] [place], [address], 02/28/2024 12:06:18 02/27/20 24 02/28/2024 LIPID PANEL triglyceride s 116 mg/dL 0-149 Not Available [facility] ([facility]) [address] [place], [address], 02/28/2024 12:06:18 02/27/20 24 02/28/2024 LIPID PANEL HDL cholesterol 96 mg/dL >39 Not Available [facility] ([facility]) [address] [place], [address], 02/28/2024 12:06:18 02/27/20 24 02/28/2024 LIPID PANEL VLDL cholesterol luke 20 mg/dL 5-40 Not Available [facility] ([facility]) [address] [place], [address], 02/28/2024 12:06:18 02/27/20 24 02/28/2024 LIPID PANEL LDL chol calc (nih) 62 mg/dL 0-99 Not Available [facility] ([facility]) [address], [place], [address], 02/28/2024 12:06:18 02/27/20 24 02/28/2024 LIPID PANEL comment: CHIEF FINANCIAL OFFICER Not Available [facility] ([facility]) [address], [place], [address], 02/28/2024 12:06:18 02/27/20 24 02/28/2024 LDL PETE STERO L (DIRE CT) LDL chol. (direct) 65 mg/dL 0-99 Not Available [facility] ([facility]) [address], [place], [address], 02/28/2024 12:06:19 02/27/20 24 02/28/2024 ALBUM IN, RANDO M URINE albumin, urine 13.2 ug/mL not estab. Not Available [facility] ([facility]) [address], [place], [address], 02/28/2024 12:06:20 02/27/20 24 02/28/2024 TSH RFX ON ABNOR MAL TO FREE T4 TSH 1.110 uIU/m L 0.450- 4.500 Not Available [facility] ([facility]) [address] [place], [address], 02/28/2024 12:06:20 02/27/20 24 02/27/2024 hemog lobin A1C, finge rstic k A1C 8.2 % 4-6 high Not Available In-Office Order Internal Use Only DO Not Attach Compendium DO Not Attach Compendium, Do Not Delete/merge, [id number] 02/27/2024 14:30:40 Result Notes None recorded. Problems Name Problem SNOMED Code Status Onset Date Resolution Date Notes Provider Name and Address Organization Details Recorded Time Abdomina l pain 58499163 Completed 201104/14/2014 IMPRESSI ON: PT WITH INTERMIT [...] BY SIXTO GALVEZATI ON/ADDEN DUM Not Available [facility] 4 14:17:44 Acute sinusiti s [id number] Completed 200804/14/2014 RECORDED 01/13/20 09 10:58AM BY MIRYAM CELIS MA, ANNOTATI ON/ADDEN DUM Not Available [facility] 4 14:17:44 Allergic rhinitis 26188163 Active Scooter Amador MD [address] [facility], [facility] [place], [address] , [facility] 5 17:55:35 Screenin g for malignan t neoplasm of breast Completed 201304/14/2014 RECORDED 12/24/19 14 8:19AM BY SIXTO GALVEZATI ON/ADDEN DUM Not Available [facility] 4 14:17:45 Cough [id number] Completed 200704/14/2014 DATE: 08/06/20 08; IMPRESSI ON: W/ WHEEZING .; RECORDED 05/01/20 12 9:48AM BY KATY CATALAN I ANNOTATI ON/ADDEN DUM [facility] 7 09:53:54 Tobacco dependen ce syndrome 01209324 Completed 201304/14/2014 RECORDED 12/24/19 14 8:19AM BY KATY CATALAN I ANNOTATI ON/ADDEN DUM Not Available [facility] 4 14:17:45 Type 2 diabetes mellitus without complica tion 704522199 Completed 201204/14/2014 IMPRESSI ON: NO CHANGES IN MGMT; CHECK LABS AND ADJUST IF NEEDED.; RECORDED 07/15/20 13 2:53PM BY AINSLEY MONSIVAIS MA, ANTHONY ON/ADDEN DUM Deja Murphy PA-C [address] [facility] [address], [place], [address] , [facility] 7 13:54:58 Type 2 diabetes mellitus without complica tion 634668417 Completed 07/06/2017 Deja Murphy PA-C [address] [facility] [address], [place], [address] , [facility] 7 13:54:58 Diarrhea 02658283 Completed 201104/14/2014 IMPRESSI ON: THIS SEEMS LIKE IBS GIVEN HER SX AND THE AMOUNT OF TIME SHE HAS HAD SX. DOUBT INFECTIO US BECAUSE OF THE DURATION . WILL CHECK STOOL STUDIES NEXT VISIT IF STILL SYMPTOMA TIC.; RECORDED 07/08/20 12 11:19AM BY ANTHONY GALVEZ ON/ADDEN DUM Not Available [facility] 4 14:17:45 Dizzines s and giddines s 594699746 Completed 201104/14/2014 RECORDED 05/01/20 12 9:48AM BY ANTHONY GALVEZ ON/ADDEN DUM Not Available [facility] 4 14:17:45 Dysmenor seng 859152885 Completed 201104/14/2014 RECORDED 05/01/20 12 9:48AM BY ANTHONY GALVEZ ON/ADDEN DUM Not Available [facility] 4 14:17:45 Respirat ory finding 946768105 Completed 201104/14/2014 RECORDED 05/01/20 12 9:48AM BY ANTHONY GALVEZ ON/ADDEN DUM Not Available [facility] 4 14:17:45 Blood chemistr y outside referenc e range 735520380 Completed 201104/14/2014 RECORDED 05/01/20 12 9:48AM BY ANTHONY GALVEZ ON/ADDEN DUM Not Available [facility] 4 14:17:45 Malaise and fatigue 310304720 Completed 05/24/2017 Xi rodriguez, [facility] 7 09:53:48 Influenz a vaccine needed [id number] 06 Completed 201004/14/2014 DATE: 06/09/20 11; RECORDED 05/01/20 12 9:48AM BY SIXTO GALVEZATI ON/ADDEN DUM Not Available [facility] 4 14:17:45 Disorder of hair AND/OR hair follicle Completed 201104/14/2014 RECORDED 05/01/20 12 9:48AM BY SIXTO GALVEZATI ON/ADDEN DUM Not Available [facility] 4 14:17:45 Adult health examinat ion Completed 201304/14/2014 RECORDED 12/24/19 14 8:19AM BY SIXTO GALVEZATI ON/ADDEN DUM Not Available [facility] 4 14:17:45 Well child 706940754 Completed 201104/14/2014 RECORDED 05/01/20 12 9:48AM BY SIXTO GALVEZATI ON/ADDEN DUM Not Available [facility] 4 14:17:45 Pure hypercho lesterol emia 271063915 Completed 10/31/2016 Scooter Amador MD [address] [address], [facility] [place], [phone] , [facility] 7 14:03:55 Irritabl e bowel syndrome 51397437 Completed 201104/14/2014 RECORDED 07/08/20 12 11:19AM BY SIXTO GALVEZATI ON/ADDEN DUM Not Available [facility] 4 14:17:46 Primary malignan t neoplasm of uterine cervix 165015224 Completed 201204/14/2014 AGE 17, LASER REMOVAL; RECORDED 10/08/19 13 11:20AM BY SIXTO GALVEZATI ON/ADDEN DUM Not Available [facility] 4 14:17:46 Administ ration of bacteria l and viral vaccine Completed 200704/14/2014 RECORDED 08/06/20 08 2:05PM BY GM SEAMAN, OFFICE VISIT Not Available [facility] 4 14:17:46 Onychomy cosis due to dermatop hyte 671217885 Completed 201104/14/2014 RECORDED 05/01/20 12 9:48AM BY SIXTO GALVEZATI ON/ADDEN DUM Not Available [facility] 4 14:17:46 Knee pain Completed 201104/14/2014 RECORDED 05/01/20 12 9:48AM BY SIXTO GALVEZATI ON/ADDEN DUM Not Available [facility] 4 14:17:46 Immuniza tion refused Completed 201304/14/2014 RECORDED 12/24/19 14 8:19AM BY SIXTO GALVEZATI ON/ADDEN DUM Not Available [facility] 4 14:17:46 Posterio r rhinorrh ea 97472991 Completed 201104/14/2014 RECORDED 05/01/20 12 9:48AM BY SIXTO GALVEZATI ON/ADDEN DUM Not Available [facility] 4 14:17:46 Eruption 041959569 Completed 200804/14/2014 RECORDED 01/13/20 09 10:58AM BY MIRYAM CELIS MA, ANTHONY ON/ADDEN DUM Not Available [facility] 4 14:17:46 Procedur e refused Completed 201104/14/2014 RECORDED 05/01/20 12 9:48AM BY SIXTO GALVEZATI ON/ADDEN DUM Not Available [facility] 4 14:17:46 Speciali zed medical examinat ion Completed 201104/14/2014 RECORDED 05/01/20 12 9:48AM BY SIXTO GALVEZATI ON/ADDEN DUM Not Available [facility] 4 14:17:46 Schizoph yanique 73708934 Active Stable on meds. Followed by psych Scooter Amador MD [address] [facility] [address], [facility] [place], [phone] , [facility] 6 13:25:02 Screenin g for malignan t neoplasm of cervix Completed 201104/14/2014 RECORDED 05/01/20 12 9:48AM BY SIXTO GALVEZATI ON/ADDEN DUM Not Available [facility] 4 14:17:46 Chronic sinusiti s 02475467 Completed 201104/14/2014 RECORDED 05/01/20 12 9:48AM BY SIXTO GALVEZATI ON/ADDEN DUM Not Available [facility] 4 14:17:46 Tobacco dependen ce syndrome 02278664 Active Scooter Amador MD [address] [facility] [address], [place], [address] , [facility] 6 15:15:56 Trichomo nal vulvovag initis 89300276 Completed 201004/14/2014 DATE: 03/02/20 11; RECORDED 05/01/20 12 9:48AM BY ANTHONY GALVEZ ON/ADDEN DUM Not Available [facility] 4 14:17:46 Acute upper respirat ory infectio n 74725426 Completed 201204/14/2014 RECORDED 10/08/19 13 11:24AM BY ANTHONY GALVEZ ON/ADDEN DUM Not Available [facility] 4 14:17:47 Urinary incontin ence 554344636 Completed 200704/14/2014 RESOLVED DATE: 04/23/20 08; RECORDED 04/23/20 08 10:15AM BY SCOOTER SILVA MD, SIXTOATI ON/ADDEN DUM Not Available [facility] 4 14:17:47 Wheezing 92079229 Completed 201204/14/2014 IMPRESSI ON: NO H/O ASTHMA. SHE WILL CALL IF SHE NEEDS TO USE THE PROAIR DAILY.; RECORDED 10/08/19 13 11:24AM BY KATY SCHULTZK I, ANNOTATI ON/ADDEN DUM Not Available [facility] 4 14:17:47 Abdomina l pain 45782420 Completed 201105/04/2014 IMPRESSI ON: PT WITH INTERMIT [...] BY SIXTO GALVEZATI ON/ADDEN DUM Not Available [facility] 4 06:38:55 Acute sinusiti s 35142927 Completed 200805/04/2014 RECORDED 01/13/20 09 10:58AM BY MIRYAM CELIS MA, ANNOTATI ON/ADDEN DUM Not Available [facility] 4 06:38:55 Screenin g for malignan t neoplasm of breast Completed 201305/04/2014 RECORDED 12/24/19 14 8:19AM BY SIXTO GALVEZATI ON/ADDEN DUM Not Available [facility] 4 06:38:55 Cough 41252111 Completed 200705/04/2014 DATE: 08/06/20 08; IMPRESSI ON: W/ WHEEZING .; RECORDED 05/01/20 12 9:48AM BY SIXTO GALVEZATI ON/ADDEN DUM Xi rodriguez MA [facility] 7 09:53:54 Tobacco dependen ce syndrome 47125175 Completed 201305/04/2014 RECORDED 12/24/19 14 8:19AM BY KATY CATALAN I ANNOTATI ON/ADDEN DUM Not Available [facility] 4 06:38:55 Type 2 diabetes mellitus without complica tion 211825544 Completed 201205/04/2014 IMPRESSI ON: NO CHANGES IN MGMT; CHECK LABS AND ADJUST IF NEEDED.; RECORDED 07/15/20 13 2:53PM BY AINSLEY MONSIVAIS MA, ANNOTATI ON/ADDEN DUM Deja Murphy PA-C [address] [facility] [address], [place], [address] , [facility] 7 13:54:58 Diarrhea 72908355 Completed 201105/04/2014 IMPRESSI ON: THIS SEEMS LIKE IBS GIVEN HER SX AND THE AMOUNT OF TIME SHE HAS HAD SX. DOUBT INFECTIO US BECAUSE OF THE DURATION . WILL CHECK STOOL STUDIES NEXT VISIT IF STILL SYMPTOMA TIC.; RECORDED 07/08/20 12 11:19AM BY ANTHONY GALVEZ ON/ADDEN DUM Not Available [facility] 4 06:38:55 Dizzines s and giddines s [id number] Completed 201105/04/2014 RECORDED 05/01/20 12 9:48AM BY ANTHONY GALVEZ ON/ADDEN DUM Not Available [facility] 4 06:38:55 Dysmenor seng 518217255 Completed 201105/04/2014 RECORDED 05/01/20 12 9:48AM BY ANTHONY GALVEZ ON/ADDEN DUM Not Available [facility] 4 06:38:55 Respirat ory finding 424651765 Completed 201105/04/2014 RECORDED 05/01/20 12 9:48AM BY ANTHONY GALVEZ ON/ADDEN DUM Not Available [facility] 4 06:38:55 Blood chemistr y outside referenc e range 169709550 Completed 201105/04/2014 RECORDED 05/01/20 12 9:48AM BY ANTHONY GALVEZ ON/ADDEN DUM Not Available [facility] 4 06:38:55 Influenz a vaccine needed [id number] 06 Completed 201005/04/2014 DATE: 06/09/20 11; RECORDED 05/01/20 12 9:48AM BY ANTHONY GALVEZ ON/ADDEN DUM Not Available [facility] 4 06:38:55 Disorder of hair AND/OR hair follicle Completed 201105/04/2014 RECORDED 05/01/20 12 9:48AM BY SIXTO GALVEZATI ON/ADDEN DUM Not Available [facility] 4 06:38:55 Adult health examinat ion Completed 201305/04/2014 RECORDED 12/24/19 14 8:19AM BY KATY CATALAN I ANNOTATI ON/ADDEN DUM Not Available [facility] 4 06:38:55 Well child 595492002 Completed 201105/04/2014 RECORDED 05/01/20 12 9:48AM BY SIXTO GALVEZATI ON/ADDEN DUM Not Available [facility] 4 06:38:55 Irritabl e bowel syndrome 01176519 Completed 201105/04/2014 RECORDED 07/08/20 12 11:19AM BY SIXTO GALVEZATI ON/ADDEN DUM Not Available [facility] 4 06:38:56 Laborato ry procedur e performe d 032553045 Completed 201305/26/2014 RECORDED 04/02/20 14 2:51PM BY NATA RIVERS, LAB REQ Scooter Amador MD [address] [address], [place], [address] , [facility] 4 12:00:02 Primary malignan t neoplasm of uterine cervix 395275020 Completed 201205/04/2014 AGE 17, LASER REMOVAL; RECORDED 10/08/19 13 11:20AM BY SIXTO GALVEZATI ON/ADDEN DUM Not Available [facility] 4 06:38:56 Administ ration of bacteria l and viral vaccine Completed 200705/04/2014 RECORDED 08/06/20 08 2:05PM BY GM SEAMAN, OFFICE VISIT Not Available [facility] 4 06:38:56 Onychomy cosis due to dermatop hyte 420895070 Completed 201105/04/2014 RECORDED 05/01/20 12 9:48AM BY SIXTO GALVEZATI ON/ADDEN DUM Not Available [facility] 4 06:38:56 Knee pain Completed 201105/04/2014 RECORDED 05/01/20 12 9:48AM BY KATY CATALAN I ANNOTATI ON/ADDEN DUM Not Available [facility] 4 06:38:56 Immuniza tion refused Completed 201305/04/2014 RECORDED 12/24/19 14 8:19AM BY SIXTO GALVEZATI ON/ADDEN DUM Not Available [facility] 4 06:38:56 Posterio r rhinorrh ea 82590357 Completed 201105/04/2014 RECORDED 05/01/20 12 9:48AM BY SIXTO GALVEZATI ON/ADDEN DUM Not Available [facility] 4 06:38:56 Eruption 502875689 Completed 200805/04/2014 RECORDED 01/13/20 09 10:58AM BY MIRYAM CELIS MA, SIXTOATI ON/ADDEN DUM Not Available [facility] 4 06:38:56 Procedur e refused Completed 201105/04/2014 RECORDED 05/01/20 12 9:48AM BY SIXTO GALVEZATI ON/ADDEN DUM Not Available [facility] 4 06:38:56 Speciali zed medical examinat ion Completed 201105/04/2014 RECORDED 05/01/20 12 9:48AM BY SIXTO GALVEZATI ON/ADDEN DUM Not Available [facility] 4 06:38:56 Screenin g for malignan t neoplasm of cervix Completed 201105/04/2014 RECORDED 05/01/20 12 9:48AM BY SIXTO GALVEZATI ON/ADDEN DUM Not Available [facility] 4 06:38:56 Chronic sinusiti s 35974872 Completed 201105/04/2014 RECORDED 05/01/20 12 9:48AM BY KATY SCHULTZK I, ANNOTATI ON/ADDEN DUM Not Available [facility] 4 06:38:56 Trichomo nal vulvovag initis 66320186 Completed 201005/04/2014 DATE: 03/02/20 11; RECORDED 05/01/20 12 9:48AM BY KATY CATALAN I ANNOTATI ON/ADDEN DUM Not Available [facility] 4 06:38:56 Acute upper respirat ory infectio n 50045588 Completed 201205/04/2014 RECORDED 10/08/19 13 11:24AM BY KATY CATALAN I ANNOTATI ON/ADDEN DUM Not Available [facility] 4 06:38:56 Urinary incontin ence 270721671 Completed 200705/04/2014 RESOLVED DATE: 04/23/20 08; RECORDED 04/23/20 08 10:15AM BY SCOOTER SILVA MD, ANNOTATI ON/ADDEN DUM Not Available [facility] 4 06:38:56 Wheezing 41820062 Completed 201205/04/2014 IMPRESSI ON: NO H/O ASTHMA. SHE WILL CALL IF SHE NEEDS TO USE THE PROAIR DAILY.; RECORDED 10/08/19 13 11:24AM BY KATY CATALAN I ANNOTATI ON/ADDEN DUM Not Available [facility] 4 06:38:56 Type 2 diabetes mellitus 91826281 Completed 01/28/2015 Deja Murphy PA-C [address], [place], [address] , [facility] 7 13:55:02 Cough 12796088 Completed 05/24/2017 Xi rodriguez [facility] 7 09:53:54 Nasal congesti on 77723528 Completed 05/24/2017 Xi rodriguez, [facility] 7 09:53:58 Type 2 diabetes mellitus 70103425 Completed 07/06/2017 Deja Murphy PA-C [address], [place], [address] , [facility] 7 13:55:02 Gynecolo gic examinat ion Active Scooter Amador MD [address], [place], [address] , [facility] 5 06:59:59 Chest pain 58108527 Completed 05/24/2017 Xi Abarca MA [facility] 7 09:53:51 Chronic obstruct meri pulmonar y disease 65170885 Active 2016 Rubén Murphy PA-C [address], [place], [address] , [facility] 7 13:22:11 Uncontro lled type 2 diabetes mellitus 371803672 Active 2016 Deja Murphy PA-C [address] [facility] [address], [place], [address] , [facility] 7 13:55:08 Hyperlip idemia 42725387 Active 2020 Scooter Amador MD [address] [address], [place], [address] , [facility] 1 19:28:56 Problem Notes None recorded. Procedures Surgical History Date Name Laterality Status Provider Name and Address Organization Details Recorded Time 3 Diabetic Foot Exam (Monofilament) completed Scooter Amador MD [address] [address], [place], [address], [facility] 04/24/2023 15:00:38 2 Diabetic Foot Exam (Monofilament) completed Scooter Amador MD [address] [address], [place], [address], [facility] 12/13/2021 14:39:14 1 Diabetic Foot Exam (Monofilament) completed Scooter Amador MD [address] [address], [place], [address], [facility] 02/07/2021 15:13:59 1 Diabetic Foot Exam (Monofilament) completed Scooter Amador MD [address], [address], [facility] 10/15/2020 13:38:53 0 Diabetic Foot Exam (Monofilament) completed Scooter Amador MD [address], [address], [facility] 04/14/2020 17:17:01 9 Diabetic Foot Exam (Monofilament) completed Scooter Amador MD [address], [address], [facility] 03/20/2019 15:31:43 8 Diabetic Foot Exam (Monofilament) completed Scooter Amador MD [address], [address], [facility] 02/28/2018 07:11:43 6 Most Recent Mammogram completed Magda Marcus [facility] 01/07/2016 08:42:52 6 Mammogram Screening completed Magda Marcus [facility] 01/07/2016 08:42:52 5 Date of Last Pap Smear completed Cinthia Smith [facility] 03/22/2017 16:18:21 4 Nebulizer tx completed MARIE Pfeiffer [address], [address], [facility] 07/15/2014 14:31:36 Other completed Miryam boone [facility] 07/15/2014 14:13:40 Imaging Results None recorded. Procedure Notes None recorded. Medical Equipment None Reported. Allergies Allergen ID Allergen Name Allergen Category Reaction Reaction Severity Criticality Documentation Date Start Date Code Code System Note Provider Name and Address Organization Details Recorded Time 42568 Actos medicatio n edema moderate Not available 06/29/2021 16748 2 RxNorm Scooter dean MD [address] [facility] [address], [place], [address], [facility] 1 09:25:21 Medications Name Sig Start Date [...] active Not Available Not Available Not Avai labalex pioglitaz one 30 mg tablet TAKE ONE TABLET BY MOUTH DAILY 02/14 completed Seems like it was replaced by [facility] Not Available Not Available Not [...] Not Available Not Available Not Available FreeStyle [place] kit DAILY 07/03 completed RECORDED 07/15/20 13 [...] Updated DateTime 4 165.74 cm 33.4 kg/m2 04612.6 6 g 84 /min 96 % 96 % 98.1 [degF] 121 mm[Hg] 74 mm[Hg] Evangelina tinajero MA [facility] 4 11:43:59 Date Recorded Body height Provider Name an d Address Organization Details Last Updated DateTime 01/22/2025 165.74 cm Janny Zapata MA [facility] 01/22/2025 15:20:54 Date Recorded Body height Body mass index (BMI) Body weight Heart rate Oxygen saturation Oxygen saturation in Arterial blood by Pulse oximetry Body temperature Systolic blood pressure Diastolic blood pressure Provider Name and Address Organization Details Last Updated DateTime 4 165.74 cm 34.5 kg/m2 34707.8 1 g 105 /min 95 % 95 % 98 [degF] 143 mm[Hg] 83 mm[Hg] Janny Zapata MA [facility] 4 14:37:07 Date Recorded Body height Body mass index (BMI) Body weight Heart rate Oxygen saturation Oxygen saturation in Arterial blood by Pulse oximetry Body temperature Systolic blood pressure Diastolic blood pressure Provider Name and Address Organization Details Last Updated DateTime 3 165.74 cm 33 kg/m2 26316.4 7 g 91 /min 96 % 96 % 98.2 [degF] 140 mm[Hg] 78 mm[Hg] Janny Zapata MA [facility] 3 13:32:43 Social History Question Answer Notes LastModified by Organizat ion Details LastModified Time Tobacco Smoking Status Current Every Day Smoker Not Available [facility] 07/27/2020 03:36:37 Do You Have An Advance Directive? Yes [id number] Information not available 07/27/2020 Is Blood Transfusion Acceptable In An Emergency? Yes [id number] Information not available 07/27/2020 What Is Your Level Of Caffeine Consumption? Moderate [id number] Information not available 07/27/2020 How Much Tobacco Do You Chew? None [id number] Information not available 07/27/2020 What Type Of Diet Are You Following? DIABETIC [id number] Information not available 07/27/2020 Which Illicit Or Recreational Drugs Have You Used? No [id number] Information not available 07/27/2020 Education 8 Information n ot available 05/26/2014 Are There Any Guns Present In Your Home? No [id number] Information not available 07/27/2020 Hard Of Hearing [...] Have You Served In The ? No [email or web address] Information not available 10/31/2016 Have You Or Anyone In Your Household Had Any Of The Following Symptoms In The Last 14 Days: Sore Throat, Cough, Chills, Body Aches For Unknown Reasons, Shortness Of Breath For Unknown Reasons, Loss Of Smell, Loss Of Taste, Fever At Or Greater Than 100 Degrees Fahrenheit? No [email or web address] Information not available 04/13/2020 Are You Or Anyone In Your Household A Health Care Provider Or Emergency Responder? No [email or web address] Information not available 04/13/2020 To The Best Of Your Knowledge Have You Been In Close Proximity To Any Individual Who Tested Positive For COVID-19? No [email or web address] Information not available 04/13/2020 Have You Recently Traveled To A COVID-19 High Risk Area Or Gathering In The Last 10 Days? No Information not available 10/14/2020 What Was The Date Of Your Most Recent Tobacco Screening? 01/22/2025 Information not available 01/22/2025 How Many Children Do You Have? 2 [id number] Information not available 07/27/2020 What Is Your Current Pack Years? 30ormorepacky ears [id number] Information not available 07/27/2020 Do You Use Protection During Sex? No [id number] Information not available 07/27/2020 Seat Belts Used Routinely Yes Information not available 08/10/2015 Are You Sexually Active? Yes [id number] Information not available 07/27/2020 Smoke Alarm In Home Yes [email or web address] Information not available 08/10/2015 At What Age Did You Start Smoking Tobacco? 17 [id number] Information not available 07/27/2020 Are You Passively Exposed To Smoke? Yes [email or web address] Information no t available 07/15/2020 How Much Tobacco Do You Smoke? 2 PPD Information not available 01/22/2025 General Stress Level High Information not available 05/26/2014 Do You Use Sunscreen Routinely? Yes [id number] Information not available 07/27/2020 How Many Years [...] is your level of alcohol consumption? Occasional [id number] Information not available 07/27/2020 Do you or have you ever used smokeless tobacco? Never used smokeless tobacco [id number] Information not available 07/27/2020 Are you currently employed? No [id number] Information not available 07/27/2020 Are you able to walk? YESWOREST Information not available 12/13/2021 Are you able to care for yourself? No [id number] Information not available 07/27/2020 Do you or have you ever used e-cigarettes or vape? Never used electronic cigarettes [id number] Information not available 07/27/2020 What is your exercise level? Occasional [id number] Information not available 07/27/2020 Mental Status None recorded. Family History Relationship Description Onset Age of this Age Resolved Age Notes LastModified by Organization Details LastModified Time Mother History of malignant neoplasm [email or web address] Not available 08/10 14:34:22 Maternal Grandfather Hypercholest bernadette ngozi Not available 08/10 14:34:22 Father Harmful pattern of use of alcohol [email or web address] Not available 05/27 15:27:47 Medical History No medical history recorded. Gynecological History Statement/Question Response Date of Last Pap Smear 08/10/2015 Most Recent Mammogram 01/06/2016 Obstetrics History GPAL:G 0 P 0 0 0 0 Immunizations Vaccine Type Date Status Note Provider Name and Address Organization Details Recorded Time pneumococcal polysaccharide PPV23 015 completed Not Available [facility] 10/11/2019 02:21:41 COVID-19, mRNA, LNP-S, PF, 30 mcg/0.3 mL dose 021 completed GM Vazquez, [facility] 06/28/2021 15:21:04 COVID-19, mRNA, LNP-S, PF, 30 mcg/0.3 mL dose 021 completed GM Vazquez, [facility] 06/28/2021 15:21:23 Td (adult), 2 Lf tetanus toxoid, preservative free, adsorbed 019 completed Not Available [facility] 10/11/2019 02:21:30 Influenza, split virus, quadrivalent, PF 020 cancelled patient objection GM Richards, [facility] 07/15/2020 14:31:12 Influenza, split virus, trivalent, preservative 008 completed Not Available [facility] 04/07/2014 14:07:42 Tdap 008 completed Not Available [facility] 04/07/2014 14:07:42 Influenza, split virus, trivalent, preservative 010 completed Not Available [facility] 04/07/2014 14:07:42 Influenza, split virus, trivalent, preservative 011 completed Not Available [facility] 04/07/2014 14:07:43 Past Encounters Encounter ID Performer Location Encounter Start Date Encounter Closed Date Diagnosis/Indication Diagnosis SNOMED-CT Code Diagnosis ICD10 Code Diagnosis Note [id number] autoEComm erce [address] [facility] [address] [place] [address] 11/19/2006 00:00:00 [id number] autoEComm erce [address] [facility] [place] [address] 12/10/2006 00:00:00 [id number] autoEComm erce [address] [place] [address] 02/22/2007 00:00:00 [id number] autoEComm erce [address] [facility] [address] [place] [address] 08/24/2006 00:00:00 [id number] autoEComm erce [address] [facility] [address] [place] [address] 06/22/2006 00:00:00 [id number] autoEComm erce [address] [facility] [address] [place] [address] 06/04/2006 00:00:00 [id number] autoEComm erce [address] [facility] [place] [address] 03/25/2007 00:00:00 [id number] autoEComm erce [address] [facility] [place] [address] 06/05/2007 00:00:00 [id number] autoEComm erce [address] [facility] [place] [address] 10/25/2007 00:00:00 [id number] autoEComm erce [address] [facility] [place] [address] 01/22/2008 00:00:00 [id number] autoEComm erce [address] [facility] [place] [address] 04/23/2008 00:00:00 [id number] autoEComm erce [address] [facility] [place] [address] 08/06/2008 00:00:00 [id number] autoEComm erce [address] [facility] [place] [address] 08/08/2008 00:00:00 [id number] autoEComm erce [address] [facility] [place] [address] 10/09/2008 00:00:00 [id number] autoEComm erce [address] [facility] [address] [place] [address] 12/11/2008 00:00:00 [id number] autoEComm erce [address] [place] [address] 01/12/2009 00:00:00 [id number] autoEComm erce [address] [facility] [address] [place] [address] 04/26/2009 00:00:00 [id number] autoEComm erce [address] [facility] [place] [address] 07/29/2009 00:00:00 [id number] autoEComm erce [address] [facility] [place] [address] 09/07/2009 00:00:00 [id number] autoEComm erce [address] [facility] [place] [address] 02/09/2010 00:00:00 [id number] autoEComm erce [address] [facility] [place] [address] 03/11/2010 00:00:00 [id number] autoEComm erce [address] [facility] [place] [address] 05/31/2010 00:00:00 [id number] autoEComm erce [address] [facility] [place] [address] 06/21/2010 00:00:00 [id number] autoEComm erce [address] [facility] [place] [address] 08/24/2010 00:00:00 [id number] autoEComm erce [address] [facility] [place] [address] 09/12/2010 00:00:00 [id number] autoEComm erce [address] [facility] [place] [address] 11/24/2010 00:00:00 [id number] autoEComm erce [address] [facility] [address] [place] [address] 01/20/2011 00:00:00 [id number] autoEComm erce [address] [place] [address] 03/02/2011 00:00:00 [id number] autoEComm erce [address] [place] [address] 06/09/2011 00:00:00 [id number] autoEComm erce [address] [place] [address] 10/03/2011 00:00:00 [id number] autoEComm erce [address] [facility] [address] [place] [address] 02/05/2012 00:00:00 [id number] autoEComm erce [address] [facility] [address] [place] [address] 03/05/2012 00:00:00 [id number] autoEComm erce [address] [facility] [place] [address] 05/01/2012 00:00:00 [id number] autoEComm erce [address] [facility] [place] [address] 07/08/2012 00:00:00 [id number] autoEComm erce [address] [facility] [address] [place] [address] 10/08/2012 00:00:00 [id number] autoEComm erce [address] [facility] [address] [place] [address] 01/09/2013 00:00:00 [id number] autoEComm erce [address] [facility] [place] [address] 07/15/2013 00:00:00 [id number] autoEComm erce [address] [facility] [address] [place] [address] 01/05/2014 00:00:00 [id number] autoEComm erce [address] [facility] [place] [address] 11/09/2009 00:00:00 [id number] autoEComm erce [address] [facility] [place] [address] 04/09/2013 00:00:00 [id number] [place] [address] 11/28/2011 00:00:00 [id number] [facility]Comm [facility] [address] [place] [address],[address] [place] [address] 09/15/2011 00:00:00 [id number] [place] [address] 07/11/2011 00:00:00 [id number] Scooter Amador MD Main Office [address] [place] [address] [place] [address] 05/26/2014 11:43:44 05/26/2014 12:22:40 Type 2 diabetes mellitus 52367944 Pure hypercholesterolemia 987000322 Schizophrenia 21249082 Tobacco de pendence syndrome 36375423 [id number] MARIE Pfeiffer Main Office [address] [place] [address] [place] [address] 07/15/2014 13:46:49 07/15/2014 14:50:06 Allergic rhinitis 65048807 Cough 20014114 Cough, congestion , insp/ exp wheezing, hoarse voice, tachycardi a, sat 93% RA. Will treat with prednisone burst and zpak for possible bacterial infection. Also recommend patient use her inhaler 2 puffs every 4 hours as needed for cough/ wheezing. Stay well hydrated, humidifier as needed, rest, tylenol or ibuprofen as needed for pain/ fever. Nasal congestion 16827660 [id number] Scooter Amador MD Main Office [address] [place] [address] [place] [address] 01/27/2015 14:32:48 01/27/2015 15:55:21 Adult health examination 713260717 Administra tion of pneumococcal vaccine 09186019 Type 2 irasema betes mellitus without complication 843560736 will increase her metformin from 500 bid to 1000 bid since her A1C is no longer at goal. Screening for malignant neoplasm of breast 488845027 Pure hypercholesterolemia 533456474 will increase her dose from 20 to 40 mg since her LDL is not at goal. Schizophrenia 02158107 o n meds, living in a skilled nursing and followed by psych. [id number] Scooter Amador MD Main Office [address] [address] [place] [address] 05/06/2015 14:03:50 05/06/2015 15:26:34 Type 2 diabetes mellitus 86123111 Pure hypercholesterolemia 970790916 will increase her dose from 20 to 40 mg since her LDL is not at goal. Allergic rhinitis 96007258 continue current mgmt [id number] Scooter Amador MD Main Office [address] [address] [place] [address] 08/10/2015 14:23:33 08/10/2015 15:23:14 Type 2 diabetes mellitus 40614605 E11.9 her A1C has been at goal in the past. She is c/w her meds. Gynecologi c examination 22137814 Z01.411 Screening for malignant neoplasm of breast 296142498 Z12.39 she has never had a mammogram because she has been anxious about going but states that she feels she is now ready. Tobacco de pendence syndrome 64629792 F17.290 we spoke about quitting. She stopped smoking in the past during each of her pregnancie s. [id number] Scooter Amador MD Main Office [address] [address] [place] [address] 11/09/2015 14:31:59 11/09/2015 15:27:25 Type 2 diabetes mellitus 62135322 E11.9 her A1C is at goal in the past. She is c/w her meds. Schizophrenia 70645205 F 20.3 on meds, living in a skilled nursing and followed by psych. Tobacco de pendence syndrome 15953784 F17.290 we spoke about quitting. She stopped smoking in the past during each of her pregnancie s. Pure hypercholesterolemia 300573409 E78.0 we increased her dose from 20 to 40 mg since her LDL was not at goal. Recheck fasting lipid level. Chest pain 02365831 R07. 9 she is at high risk for heart disease because of her smoking and diabetes [id number] Scooter Aamdor MD Main Office [address] [address] [place] [address] 02/16/2016 12:45:58 02/16/2016 13:25:59 Type 2 diabetes mellitus 41548953 E11.9 her A1C is at goal in the past. She is c/w her meds. Schizophrenia 16233025 F 20.3 on meds, living in a skilled nursing and followed by psych. [id number] Deja Murphy PA-C Main Office [address] [address] [place] [address] 06/30/2016 15:03:47 06/30/2016 15:45:43 Injury of finger 99606571 S69.82XA L big finger injury due to fall. XRAys to r/o fracture. Immobiliza tions with splint, ice several times daily and NSAIDs as directed for 7-10 days. referral to hand specialist . [id number] Deja Murphy PA-C Main Office [address] [address] [place] [address] 09/22/2016 15:06:27 09/22/2016 16:05:08 Cough 64328047 R05 Acute pharyngitis 959795 003 J02.9 Acute sinusitis 75529584 J01.90 Wheezing 46325110 R06.2 [id number] Scooter Amador MD Main Office [address] [address] [place] [address] 10/31/2016 13:40:19 10/31/2016 14:46:59 Adult health examination 738703894 Z00.00 UTD with immunizati ons. Had a PAP done Jul 2015. Type 2 irasema betes mellitus 64036802 E11.9 her A1C is a little above goal. She is c/w her meds. She will try to make some changes and we will f/u in 3 months w/o making any changes in meds right now. We will make an eye appointmen t for her. Schizophrenia 25801638 F 20.3 on meds, living in a skilled nursing and followed by psych. Tobacco de pendence syndrome 00655797 F17.290 we spoke about quitting. She stopped smoking in the past during each of her pregnancie s. Hyperlipidemia 02741897 E78.5 We increased her med at a previous visit and will recheck her fasting lipid level. [id number] Rubén Murphy PA-C Main Office [address] [facility] [address] [place] [address] 12/25/2016 11:34:50 12/25/2016 12:20:54 Acute conjunctivitis 32123893 H10.33 Nasal congestion 6066748 0 R09.81 [id number] Scooter Amador MD Main Office [address] [facility] [address] [place] [address] 03/06/2017 12:39:50 03/06/2017 13:33:42 Type 2 diabetes mellitus 85669308 E11.9 Her A1C continues to rise as does her weight. We will add januvia to her regimen. Schizophrenia 42091737 F 20.3 on meds, living in a skilled nursing and followed by psych. [id number] Rubén Murphy PA-C Main Office [address] [facility] [address] [place] [address] 05/10/2017 15:11:49 05/10/2017 16:27:12 Sore throat 114611374 J02.9 Pneumonia 860419553 J18. 9 Wheezing 51289299 R06.2 is running low on proair - has used it past few days - will renew [id number] Rubén Murphy PA-C Main Office [address] [address] [place] [address] 05/24/2017 09:33:03 05/24/2017 11:17:36 Dyspnea 090431081 R06.00 much improved p pna rx pt [...] gums - it has helped before Pneumonia 735520817 J18. 9 resolved s/p rx Tobacco de pendence syndrome 25227901 F17.200 strongly encouraged tob cessation - she states she will try ankit gums again - this had worked for her in the past Cough 45728497 R05 most likely d/t prolonged tobacco exp. - see below Chronic ob structive pulmonary disease 95996004 J44.9 see above [id number] Scooter Amador MD Main Office [address] [address] 06/06/2017 14:22:12 06/06/2017 16:18:04 Type 2 diabetes mellitus 32307147 E11.9 Since her A1C was rising we did a script for januvia which was not covered by her insurance. We then did a script for actos which she only filled about 2-3 weeks ago. Her A1C has come down slightly so we will not make any changes at this time. Chronic ob structive pulmonary disease 56261659 J44.9 We discussed quitting smoking to help prevent further progressio n. Since she denies SOB and exam is normal we will not start any meds but will monitor her function. [id number] Deja Murphy PA-C Main Office [address] [address] 07/06/2017 12:59:15 07/06/2017 14:07:16 Uncontrolled type 2 diabetes mellitus 515030707 E11.65 Total time spent teaching and coordinati [...] be set up to see notionist at [facility]. Pt. was advised to start exercise activity [...] m. Body mass index 30+ - obesity 560194957 Z68.34 Obesity 515937929 E66.9 [id number] Scooter Amador MD Main Office [address] [facility] [address] [place] [address] 09/05/2017 12:48:05 09/05/2017 13:58:41 Uncontrolled type 2 diabetes mellitus 122147918 E11.65 Excellent improvemen t in A1C which is now less than 7.0 again (down to 6.8). She will continue with current mgmt since it is working. Dysuria 72796963 R30.0 No longer with symptoms so will send culture and will not do abx for now. She was advised to drink more fluids. Schizophrenia 04811711 F 18.3 on meds, living on her own with supervisio n and followed by psych. [id number] Deja Murphy PA-C Main Office [address] [address] [place] [address] 10/23/2017 14:27:22 10/23/2017 15:48:51 Uncontrolled type 2 diabetes mellitus 546553293 E11.65 STable type II Diabetes w/o complicati ons. Continue current meds. Discussed lowering calories even further and increasing exercise activity. Test glucose 1 time per day and bring glucose log to next visit. F/u 3 m. Repeat labs. Upper resp iratory infection 87238796 J06.9 Wheezing 61755737 R06.2 Chronic ob structive pulmonary disease 99627933 J44.9 Body mass index 30+ - obesity 392011199 E66.01 Z68.35 [id number] Scooter Amador MD Main Office [address] [address] [place] [address] 02/27/2018 13:02:09 02/27/2018 14:22:54 Adult health examination 959776330 Z00.00 UTD with immunizati ons. Had a PAP done Jul 2015 and will return for a PAP Genital warts 030355408 A63.0 Will try topical treatment and if persists will Uncontroll ed type 2 diabetes mellitus 607767840 E11.65 A1C continues to be at goal below 7.0 and is currently at 6.3 . She will continue with current mgmt since it is working. [id number] Scooter Amador MD Main Office [address] [address] [place] [address] 06/06/2018 12:57:48 06/06/2018 13:58:46 Uncontrolled type 2 diabetes mellitus 540105470 E11.65 A1C continues to be at goal below 7.0 and is currently at 6.6. She will continue with current mgmt since it is working. Schizophrenia 09322215 F 20.3 on meds, living on her own with supervisio n and followed by psych. [id number] Scooter Amador MD Main Office [address] [address] 08/22/2018 13:25:23 08/22/2018 14:17:54 Acute pharyngitis 159449163 J02.9 Cough 77270989 R05 She will use robitussin prn. [id number] Scooter Amador MD Main Office [address] [address] 03/20/2019 15:00:36 03/20/2019 15:56:26 Uncontrolled type 2 diabetes mellitus 496761520 E11.65 A1C continues to be at goal below 7.0 and is currently at 6.7. She will continue with current mgmt since it is working. Schizophrenia 63259548 F 20.3 on meds, [facility]. Chronic ob structive pulmonary disease 34920398 J44.9 Continues to smoke Requires a tetanus booster 281252908 Z23 [id number] Scooter Amador MD Main Office [address] [address] 06/23/2019 14:34:34 06/23/2019 15:59:51 Adult health examination 978140169 Z00.00 UTD with immunizati ons. Had a PAP done Jul 2015 and will return for a PAP Type 2 irasema betes mellitus without complication 310784604 E11.9 Body mass index 30+ - obesity 262604109 E66.01 Z68.36 Schizophrenia 92536899 F 20.3 on meds, living on her own with supervisio and followed by psych. [id number] Scooter Amador MD Main Office [address] [address] 04/13/2020 12:37:21 04/13/2020 13:38:09 Uncontrolled type 2 diabetes mellitus 149486795 E11.65 A1C continues to be at goal below 7.0 and is currently at 6.7. She will continue with current mgmt since it is working. Lateral ep icondylitis of right humerus 2764107572 74892 M77.11 Chronic ob structive pulmonary disease 88942959 J44.9 Continues to smoke Schizophrenia 62983155 F 20.3 on meds, living on her own with supervisio n and followed by psych. Tobacco de pendence syndrome 01311845 F17.290 we spoke about quitting. She stopped smoking in the past during each of her pregnancie s. [id number] Scooter Amador MD Main Office [address] [facility] 207 [place] [address] 07/15/2020 14:10:04 07/15/2020 15:21:15 Adult health examination 495079425 Z00.00 UTD with immunizati ons but refuses a flu vaccine. Had a PAP done Jul 2015 and will return for a PAP Needs infl uenza immunization 666938531 Z23 Uncontroll ed type 2 diabetes mellitus 182435872 E11.65 Her diabetes is no longer uncontroll ed; her A1C today is 7.0. She was encouraged to stay with the same mgmt. Schizophrenia 34651924 F 20.3 on meds, [facility]. Tobacco de pendence syndrome 44652331 F17.290 we spoke about quitting. She stopped smoking in the past during each of her pregnancie s. Body mass index 30+ - obesity 931246736 E66.01 [id number] Scooter Amador MD Main Office [address] [facility] [address] [place] [address] 10/14/2020 13:41:53 10/14/2020 14:42:06 Uncontrolled type 2 diabetes mellitus 798503020 E11.65 Her A1C increased form 7.0 to 7.7. We will increase her actos from 15 to 30 mg and see her back in 3 months. Hyperlipidemia 47585215 E78.5 We increased her med at a previous visit and LDL is now at goal. Schizophrenia 10596636 F 20.3 on meds, [facility]. Chronic ob structive pulmonary disease 48598136 J44.9 Continues to smoke [id number] Scooter Amador MD Main Office [address] [facility] [address] [place] [address] 02/07/2021 14:23:01 02/07/2021 15:22:47 Uncontrolled type 2 diabetes mellitus 198117025 E11.65 Her A1C continues to increase despite being c/w her meds. Will increase her actos from 30 to 45 mg and she will continue metformin trajenta. Chronic ob structive pulmonary disease 46676100 J44.9 Continues to smoke Hyperlipidemia 63752115 E78.5 LDL at goal. Will check fasting lipid level. Schizophrenia 07617817 F 20.3 on meds, living on her own with supervisio n and followed by psych. [id number] Scooter Amador MD [facility] [address] [facility] 207 [facility] [place] [address] 03/17/2021 13:57:16 03/18/2021 14:44:54 Uncontrolled type 2 diabetes mellitus 716445444 E11.65 She has been having SE's since [...] in 2 months. Tobacco de pendence syndrome 22941628 F17.290 we spoke about quitting. She stopped smoking in the past during each of her pregnancie s. Anxiety 84620967 F41.9 It is doubtful that this is secondary to her actos. She will speak to her mental health provider about this. [id number] Scooter Amador MD Main Office [address] [facility] [address] [place] [address] 06/28/2021 14:51:15 06/28/2021 15:56:27 Uncontrolled type 2 diabetes mellitus 312517217 E11.65 She was not able to tolerate the actos because of ankle swelling, nausea and bloating. She stopped this a couple of months ago and her SE's resolved. Unfortunat sheila her A1C increased from 8.1 to 9.3. We will add another po med and she understand s that she may need meds that require injections in the future. Schizophrenia 94673857 F 20.3 on meds, living on her own with supervisio n and followed by psych. Hyperlipidemia 08040202 E78.5 LDL at goal. Will check fasting lipid level next appointmen t. [id number] Scooter Amador MD Main Office [address] [address] [place] [address] 08/16/2021 13:29:39 08/16/2021 14:38:24 Tinea cruris 766865598 B35.6 Candidiasis of vagina 72 086030 B37.3 [id number] Scooter Amaodr MD Main Office [address] [place] [address] 12/13/2021 12:41:16 12/13/2021 13:49:23 Adult health examination 921316657 Z00.00 UTD with immunizati ons. Had a PAP done Jul 2015 and will return for a PAP. Does not want to do one today. Uncontroll ed type 2 diabetes mellitus 506645525 E11.65 She was not able to tolerate the actos because of ankle swelling, nausea and bloating. She stopped this a couple of months ago and her SE's resolved. Unfortunat sheila her A1C increased from 8.1 to 9.3. We will add another po med and she understand s that she may need meds that require injections in the future. Chronic ob structive pulmonary disease 51842273 J44.9 Continues to smoke Hyperlipidemia 49027202 E78.5 LDL at goal. Will check fasting lipid level. Schizophrenia 00701676 F 20.3 on meds, living on her own with supervisio n and followed by psych. Body mass index 30+ - obesity 430639591 E66.01 Z68.33 [id number] Scooter Amador MD Main Office [address] [address] [place] [address] 08/29/2022 13:05:29 08/29/2022 14:30:53 Uncontrolled type 2 diabetes mellitus 489116495 E11.65 She was not able to tolerate the actos because of ankle swelling, nausea and bloating. She stopped this and her SE's resolved. . We added jardiance and tradjenta and her A1C came down from 9.3 to 7.6. She will work on lifestyle changes to bring this down more. Allergic rhinitis 581636 04 J30.9 continue current mgmt Schizophrenia 13383438 F 20.3 on meds, living on her own with supervisio n and followed by psych. [id number] Scooter Amador MD Main Office [address] [address] 04/24/2023 14:19:20 04/24/2023 15:26:54 Uncontrolled type 2 diabetes mellitus 051951960 E11.65 She was not able to tolerate the actos because of ankle swelling, nausea and bloating. She stopped this and her SE's resolved. . We added jardiance and tradjenta and her A1C came down from 9.3 to 7.6. She checks her sugars and says that they are generally in the low 100's. Schizophrenia 38089378 F 20.3 on meds, living on her own with supervisio n and followed by psych. Allergic rhinitis 246384 04 J30.9 continue current mgmt Chronic ob structive pulmonary disease 80131034 J44.9 Continues to smoke [id number] Scooter Amador MD Main Office [address] [address] 08/07/2023 13:23:20 08/07/2023 14:27:58 Uncontrolled type 2 diabetes mellitus 855415578 E11.65 She was not able to tolerate the actos because of ankle swelling, nausea and bloating. She stopped this and her SE's resolved. . We added jardiance and tradjenta and her A1C came down from 9.3 to 7.2. She checks her sugars and says that they are generally in the low 100's. Adult [facility] th examination 841752550 Z00.00 UTD with immunizati ons. Had a PAP done Jul 2015 and will return for a PAP. Does not want to do one today. Screening for malignant neoplasm of colon 360022278 Z12.11 Tobacco de pendence syndrome 97318408 F17.290 we spoke about quitting. She stopped smoking in the past during each of her pregnancie s. Chronic ob structive pulmonary disease 16703814 J44.9 Continues to smoke Hyperlipidemia 38173890 E78.5 LDL at goal. Will check fasting lipid level. Schizophrenia 69460342 F 20.3 on meds, living on her own with supervisio n and followed by psych. Has some mild depression which is followed by her psych provider. [id number] Scooter Amador MD Main Office [address] [place] [address] 11/23/2023 11:21:25 11/23/2023 12:21:38 Uncontrolled type 2 diabetes mellitus 241943289 E11.65 A1C increased from 7.2 to 7.3, Would like to continue on metformin and tradjenta instead of adding med, will stay consistent with exercise and trying to eat better. Does exercises in 3 sets to get through during the day. Tradjenta refilled. Schizophrenia 63988221 F 20.3 on meds, [facility]. Allergic rhinitis 100610 04 J30.9 continue current mgmt Chronic ob structive pulmonary disease 36790102 J44.9 Continues to smoke [id number] Scooter Amador MD Main Office [address] [place] [address] 02/27/2024 14:25:32 02/27/2024 15:27:48 Uncontrolled type 2 diabetes mellitus 821098618 E11.65 She was not able to tolerate the Actos because of ankle swelling, nausea and bloating. She stopped this and her SE's resolved. . We added jardiance and tradjenta and her A1C came down from 9.3 to 7.2. But the jardiance is no longer on formulary. She also stopped the tradjenta for unclear reasons but will restart it. Fatigue 01023212 R53.83 Hyperlipidemia 36769245 E78.5 Last LDL at goal. Will check fasting lipid level. Schizophrenia 23685056 F 20.3 on meds, living on her own with supervisio n and followed by psych. Has some mild depression which is followed by her psych provider. [id number] Scooter Amador MD Main Office [address] [facility] [address] [place] [address] 01/20/2025 15:07:20 01/20/2025 15:45:35 [id number] Scooter Amador MD [facility] [address] [facility] 207 [place] [address] 01/22/2025 13:02:53 01/23/2025 14:51:58 Allergic rhinitis 63719016 J30.9 continue current mgmt Chronic ob structive pulmonary disease 90345436 J44.9 She has been trying to quit smoking and currently smokes less than 5 cigarettes a day. She understand s that she needs to stop completely since increasing the number of daily cigarettes will likely increase with time. She is not currently using any inhalers. As an inpatient she was given oxygen but was not discharged with it. Schizophrenia 61135102 F 20.3 on meds, living on her own with supervisio n and followed by psych. Has some mild depression which is followed by her psych provider. Tobacco de pendence syndrome 07509816 F17.290 She has cut back significan tly and knows that she needs to quit totally because of her COPD dx. Community acquired pneumonia 770241891 J15.9 She was septic and was admitted to [facility]. She was discharged to complete a course of abx and steroids. Health Concerns Section Related Observation LastModified by Organization Detai ls LastModified Time None Recorded Concern Status LastModified by Organization Details LastModified Time None Recorded Advance Directives Directive Y: Payers Encounter Date Sequence Insurance Name Policy Number Policy Chopra Covered Member ID Chopra Member ID Guarantor Name 08/07/2023 1 MEDICARE B-[place]: [facility] Aura Hill Sana [id number] Aura Hill Sana 08/07/2023 2 [place] [facility] Aura Hill Sana [id number] Aura Hill Sana 11/23/2023 1 MED[place] B[place] [facility] Aura Hill Sana [id number] Aura Hill Sana 11/23/2023 2 [place] [facility] Aura Hill Sana [id number] Aura M Sana 02/27/2024 1 [place] B[place] [facility] Aura Hood [id number] Aura Hood 02/27/2024 2 [place] CHARLI Hood [id number] Aura Hood 01/20/2025 1 [place] B[place] [facility] Aura Hood [id number] Aura Hood 01/20/2025 2 [place]LI Hood [id number] Aura Hood 01/22/2025 1 [place] [facility] Aura Hood [id number] Aura Hood 01/22/2025 2 [place] Hood [id number] Aura Hood Notes Date Note Type Note Provider Name and Address Organization Details Recorded Time 08/07/2023 text/html Generic HPI TemplateReported bypatient.Notes:She is followed by psych and is also by the [facility]. She lives on her own with [...] falls while walking Scooter Amador MD [address] [address], [place], [address], [facility] 08/09/2023 07:47:33 11/23/2023 text/html Generic HPI TemplateReported [...] with just 2 meds. MARIE Pfeiffer [address] [address], [place], [address], [facility] 11/23/2023 12:21:58 02/27/2024 text/html Diabetes F/URepo rted [...] a problem recently. Scooter Amador MD [address] [facility] [address], [place], [address], [facility] 02/27/2024 18:37:36 01/20/2025 text/html Hospitalization Contact RecordReported bypatient.Follow UpHospital: [facility]; admit date: (Please enter in format 'MM/DD/YYYY') (01/13/2025); date of discharge: (Please enter in format 'MM/DD/YYYY') (01/20/2025); date of contact: (Please enter in format 'MM/DD/YYYY') (01/20/2025)Notes:[facility] covered inpatient stay? yes Medicare ELZBIETA with in 48 working hours? yes High Complexity code valid on or before:January Moderate Complexity code valid on or before: January HCP on file? no MOLST on file? no Discharge Summary available? yes 49 year old female with several comorbidities presented to [facility] with Shortness of breath associated with [...] 5 days of antibiotic and steriod regimen. [employer] Set Up Operator updated medication list as noted. Attempted several times to complete ELZBIETA call cell number is out of services , called emergency contact number no answer, unable to leave message. Attempted to look in [facility] for any additional contact infomation no update information was noted . Patient is scheduled to follow up with provider for DM on 02/04/2025 . Scooter Amador MD [address], [place], [address], [facility] 01/20/2025 15:45:32 01/22/2025 text/html Hospitalization Contact RecordReported bypatient.Follow UpHospital: [facility]; admit date: (Please enter in format 'MM/DD/YYYY') (01/13/2025); date of discharge: (Please enter in format 'MM/DD/YYYY') (01/20/2025); date of contact: (Please enter in format 'MM/DD/YYYY') (01/20/2025)Notes:[facility] covered inpatient stay? yesMedicare ELZBIETA with in 48 working hours? yesHigh Complexity code valid on or before:JanuaryModerate Complexity code valid on or before:JanuaryHCP on file? noMOLST on file? noDischarge Summary available? yes 49 year old female with several comorbidities presented to [facility] with shortness of breath associated with weakness. [...] on 02/04/2025 . Scooter Amador MD [address] [facility] [address], [place], [address], [facility] 01/24/2025 11:02:08 OBGyn Episode No OBEpisode recorded.
== END 2025-02-24 14:58 | disposition home or self-care (01) ==
LOC: HO.LABR 14:57
PROVIDERS: Visit Provider Psychiatry & Neurology Psychiatry
DX: Z79.899 Other long term (current) drug therapy (principal)
CPT/HCPCS: 36415; 85025

== ENCOUNTER 2025-04-28 15:59 | Outpatient (REF) | payer MEDICARE, MEDICAID, SELFPAY ==
[2025-04-28 16:14] LABS: MANUAL DIFF FLAG NO
[2025-04-28 16:31] LABS: Hematocrit 45.7 % (37.0-47.0); Hemoglobin 15.4 g/dl (12.0-16.0); Imm Gran Abs Auto 0.03 X10*3/uL (0.00-0.03); Imm Gran Pct Auto 0.3 % (0.0-0.4); Lymphocytes Absolute Auto 4.2 X10*3/uL (1.2-4.9); Mean Corpuscular HGB Conc 33.7 g/dl (31.0-35.0); Mean Corpuscular Hemoglobin 29.6 pg (27.0-33.0); Mean Corpuscular Volume 87.7 fL (80.0-98.0); NRBC Abs Auto 0.000 X10*3/uL (0.0-0.012); NRBC Pct Auto 0.0 /100WBC (0.0-0.2); Platelet Count 196 X10*3/uL (160-400); Red Blood Count 5.21 X10*6/uL (4.20-5.50); White Blood Count 9.3 X10*3/uL (4.8-10.8)
== END 2025-04-28 16:00 | disposition home or self-care (01) ==
LOC: HO.LABR 15:59
PROVIDERS: PCP Internal Medicine
DX: Z79.899 Other long term (current) drug therapy (principal)
CPT/HCPCS: 36415; 85025

== ENCOUNTER 2025-05-26 15:08 | Outpatient (REF) | payer MEDICARE, MEDICAID, SELFPAY ==
[2025-05-26 15:34] LABS: MANUAL DIFF FLAG NO
[2025-05-26 15:41] LABS: Hematocrit 43.9 % (37.0-47.0); Hemoglobin 14.9 g/dl (12.0-16.0); Imm Gran Abs Auto 0.02 X10*3/uL (0.00-0.03); Imm Gran Pct Auto 0.2 % (0.0-0.4); Lymphocytes Absolute Auto 4.2 X10*3/uL (1.2-4.9); Mean Corpuscular HGB Conc 33.9 g/dl (31.0-35.0); Mean Corpuscular Hemoglobin 29.7 pg (27.0-33.0); Mean Corpuscular Volume 87.5 fL (80.0-98.0); NRBC Abs Auto 0.000 X10*3/uL (0.0-0.012); NRBC Pct Auto 0.0 /100WBC (0.0-0.2); Platelet Count 178 X10*3/uL (160-400); Red Blood Count 5.02 X10*6/uL (4.20-5.50); White Blood Count 8.6 X10*3/uL (4.8-10.8)
== END 2025-05-26 15:09 | disposition home or self-care (01) ==
LOC: HO.LABR 15:08
PROVIDERS: PCP Internal Medicine
DX: Z79.899 Other long term (current) drug therapy (principal)
CPT/HCPCS: 36415; 85025

== ENCOUNTER 2025-06-23 15:14 | Outpatient (REF) | payer MEDICARE, MEDICAID, SELFPAY ==
[2025-06-23 15:42] LABS: MANUAL DIFF FLAG NO
--- OUTSIDE RECORDS SUMMARY | 2025-06-23 16:34 | XMS_ITS | Data Portability ---
Author Organization [facility], Main Office Address [address] [place] [address] Care Team Providers Care Associate Teacher Name Role Phone SCOOTER AMADOR Primary Care Provider VIVI COON Psychologist CIERA ROCKWELL Referring Provider [phone] Assessment Encounter Date Assessment Date Assessment LastModified by Organization Details LastModified Time 01/22/2025 01/22/2025 This service was provided using telemedicine. Patient consented to telephone visit Patient was located at home in the [facility]. Provider was located in the office. No other persons participated in the telemedicine visit except for the patient unless otherwise indicated here. RN Total time of visit was 30 minutes. [email or web address] Not available 01/24/2025 10:36:57 02/25/2025 02/25/2025 Discussed with patient the signs/symptoms warranted for a return to office visit and/or an ER visit. Patient understood and agreed with the plan. [email or web address] Not available 02/25/2025 13:27:25 Plan of Treatment Reminders Order Date Submit Date Provider Last Modified By Organization Details Last Modified Time Details Appointments PE EST 2025 03:45P M Scooter dean MD Not available Not available Not available Lab CBC w/ auto diff 2024 025 OMAR [facility] (Centralized Electronic Ordering - All Locations), Patient Can Go To The Location Of Their Choice, [id number] 06/11/2025 13:59:26 CMP, serum or plasma 2024 025 OMAR [facility] (Centralized Electronic Ordering - All Locations), Patient Can Go To The Location Of Their Choice, 06/11/2025 13:59:27 albumi n/crea tinine , mass ratio, urine 2024 025 OMAR [facility] (Centralized Electronic Ordering - All Locations), Patient Can Go To The Location Of Their Choice, 06/11/2025 13:59:28 HbA1c (hemog lobin A1c), blood 2024 025 OMAR [facility] (Centralized Electronic Ordering - All Locations), Patient Can Go To The Location Of Their Choice, 06/11/2025 13:59:28 lipid panel, serum 2024 025 OMAR [facility], [address], [place], [address], 06/11/2025 13:59:27 LDL, direct , serum 2024 025 OMAR [facility], [address], [place], [address], 06/11/2025 13:59:27 hemogl obin A1C, finger stick 2023 024 [email or web address] In-Office Order, Internal Use Only DO Not Attach Compendium DO Not Attach Compendium, Do Not Delete/merge, [id number] 02/27/2024 15:14:28 microa lbumin , urine 2023 024 OMAR [facility] (Centralized Electronic Ordering - All Locations), Patient Can Go To The Location Of Their Choice, 02/28/2024 12:06:20 LDL, direct , serum 2023 024 OMAR [facility], [address], [place], [address], 02/28/2024 12:06:19 HDL choles terol, serum 2023 024 [email or web address] [facility] (Centralized Electronic Ordering - All Locations), Patient Can Go To The Location Of Their Choice, 09/25/2024 09:12:13 CBC w/ auto diff 2023 024 OMAR [facility], [address], [place], [address], 02/28/2024 12:06:16 BMP, serum or plasma 2023 024 OMAR [facility], [address], [place], [address], 02/28/2024 12:06:17 TSH, ultra- sensit meri, serum 2023 024 OMAR [facility], [address], [place], [address], 02/28/2024 12:06:21 Referral vestib ular therap y referr al - Chroni c vertig o 2024 025 [email or web address] [facility] [place] [facility] , [address] [facility] [facility] [address] , [place], [address], 06/11/2025 14:03:22 Procedures None record ed. Surgeries None record ed. Imaging None record ed. Medication Orders neomyc in-vinicio ymyxin -hydro amanuel 3.5 mg-10, 000 unit/m L-1 % ear drops, susp 2024 025 [facility] #[id number], [address], [place], [id number], 06/11/2025 13:57:14 amoxic illin 875 mg-pot assium clavul anate 125 mg tablet 2024 025 [place]37846, [address], [place], [id number], 03/11/2025 05:01:49 hydroc ortiso ne 2.5 % topica l cream 2024 025 [place] [facility] #33825, [address], [place], [id number], 02/25/2025 13:34:43 Vitami n C 250 mg tablet 2024 025 [facility] #33565, [address], [place], [id number], 01/24/2025 10:37:01 Tradje nta 5 mg tablet 2023 024 [facility] #20355, [address], [place], [id number], 02/27/2024 15:14:32 Patient TargetsNo targets recorded. Patient Instructions Encounter Date Encounter Id Patient Instructions Last Modified By Organization Details Last Modified Time 02/27/2024 [id number] schizophrenia: care instructions [email or web address] Not available 02/27/2024 18:37:24 type 2 diabetes: care instructions [email or web address] Not available 02/27/2024 15:14:26 01/20/2025 [id number] I have reviewed the note and agree with the assessment and plan of care. [email or web address] Not available 01/20/2025 15:45:28 01/22/2025 [id number] deciding about using medicines to quit smoking [email or web address] Not available 01/24/2025 10:53:21 Quitting Tobacco: Care Instructions [email or web address] Not available 01/24/2025 10:53:21 schizophrenia: care instructions [email or web address] Not available 01/24/2025 10:53:21 chronic obstructive pulmonary disease (COPD): care instructions [email or web address] Not available 01/24/2025 10:53:22 learning about copd and how to prevent lung infections acennerazzo Not available 01/24/2025 10:53:21 pneumonia: care instructions [email or web address] Not available 01/24/2025 10:58:42 06/11/2025 [id number] type 2 diabetes: care instructions [email or web address] Not available 06/11/2025 13:59:09 Reason for Referral Vestibular Therapy Referral for Chronic vertigo Chronic vertigo Referring Physician: Scooter Amador, Family Medicine, Encounter Date: 06/11/2025 Results Created Date Observation Date Name Description Value Unit Range Abnormal Flag Note LastModifiedBy Organization Detail LastModifiedTime 02/27/20 24 02/28/2024 CBC WITH DIFFE RENTI AL/PL ATELE T WBC 9.5 x10e3 /uL 3.4-10 .8 Not Available [facility] ([facility]) [address] [facility] [address], [place], [address], 02/28/2024 12:06:16 02/27/20 24 02/28/2024 CBC WITH DIFFE RENTI AL/PL ATELE T RBC 5.03 x10e6 /uL 3.77-5 .28 Not Available [facility] ([facility]) [address] [place], [address], 02/28/2024 12:06:16 02/27/20 24 02/28/2024 CBC WITH DIFFE RENTI AL/PL ATELE T hemoglobin 15.3 g/dL 11.1-1 5.9 Not Available [facility] ([facility]) [address] [facility], [place], [address], 02/28/2024 12:06:16 02/27/20 24 02/28/2024 CBC WITH DIFFE RENTI AL/PL ATELE T hematocrit 46.4 % 34.0-4 6.6 Not Available [facility] ([facility]) [address] [place], [address], 02/28/2024 12:06:16 02/27/20 24 02/28/2024 CBC WITH DIFFE RENTI AL/PL ATELE T MCV 92 fL 79-97 Not Available [facility] ([facility]) [address] [place], [address], 02/28/2024 12:06:16 02/27/20 24 02/28/2024 CBC WITH DIFFE RENTI AL/PL ATELE T MCH 30.4 pg 26.6-3 3.0 Not Available [facility] ([facility]) [address] [place], [address], 02/28/2024 12:06:16 02/27/20 24 02/28/2024 CBC WITH DIFFE RENTI AL/PL ATELE T MCHC 33.0 g/dL 31.5-3 5.7 Not Available [facility] ([facility]) [address] [facility], [place], [address], 02/28/2024 12:06:16 02/27/20 24 02/28/2024 CBC WITH DIFFE RENTI AL/PL ATELE T RDW 13.5 % 11.7-1 5.4 Not Available [facility] ([facility]) [address] [facility], [place], [address], 02/28/2024 12:06:16 02/27/20 24 02/28/2024 CBC WITH DIFFE RENTI AL/PL ATELE T platelets 222 x10e3 /uL 150-45 0 Not Available [facility] ([facility]) [address] [facility], [place], [address], 02/28/2024 12:06:16 02/27/20 24 02/28/2024 CBC WITH DIFFE RENTI AL/PL ATELE T neutrophils 47 % not estab. Not Available [facility] ([facility]) [address] [facility], [place], [address], 02/28/2024 12:06:16 02/27/20 24 02/28/2024 CBC WITH DIFFE RENTI AL/PL ATELE T lymphs 44 % not estab. Not Available [facility] ([facility]) [address] [facility], [place], [address], 02/28/2024 12:06:16 02/27/20 24 02/28/2024 CBC WITH DIFFE RENTI AL/PL ATELE T monocytes 8 % not estab. Not Available [facility] ([facility]) [address] [facility] [address], [place], [address], 02/28/2024 12:06:16 02/27/20 24 02/28/2024 CBC WITH DIFFE RENTI AL/PL ATELE T eos 1 % not estab. Not Available [facility] ([facility]) [address] [place], [address], 02/28/2024 12:06:16 02/27/20 24 02/28/2024 CBC WITH DIFFE RENTI AL/PL ATELE T basos 0 % not estab. Not Available [facility] ([facility]) [address] [facility], [place], [address], 02/28/2024 12:06:16 02/27/20 24 02/28/2024 CBC WITH DIFFE RENTI AL/PL ATELE T immature cells GLASS NOVELTY MAKER Not Available [facility] ([facility]) [address] [place], [address], 02/28/2024 12:06:16 02/27/20 24 02/28/2024 CBC WITH DIFFE RENTI AL/PL ATELE T neutrophils (absolute) 4.4 x10e3 /uL 1.4-7. 0 Not Available [facility] ([facility]) [address] [place], [address], 02/28/2024 12:06:16 02/27/20 24 02/28/2024 CBC WITH DIFFE RENTI AL/PL ATELE T lymphs (absolute) 4.2 x10e3 /uL 0.7-3. 1 above high normal Not Available [facility] ([facility]) [address] [place], [address], 02/28/2024 12:06:16 02/27/20 24 02/28/2024 CBC WITH DIFFE RENTI AL/PL ATELE T monocytes(ab solute) 0.7 x10e3 /uL 0.1-0. 9 Not Available [facility] ([facility]) [address] [place], [address], 02/28/2024 12:06:16 02/27/20 24 02/28/2024 CBC WITH DIFFE RENTI AL/PL ATELE T eos (absolute) 0.1 x10e3 /uL 0.0-0. 4 Not Available [facility] ([facility]) [address] [facility] [address], [place], [address], 02/28/2024 12:06:16 02/27/20 24 02/28/2024 CBC WITH DIFFE RENTI AL/PL ATELE T baso (absolute) 0.0 x10e3 /uL 0.0-0. 2 Not Available [facility] ([facility]) [address] [facility] [address], [place], [address], 02/28/2024 12:06:16 02/27/20 24 02/28/2024 CBC WITH DIFFE RENTI AL/PL ATELE T immature granulocytes 0 % not estab. Not Available [facility] ([facility]) [address] [facility] [address], [place], [address], 02/28/2024 12:06:16 02/27/20 24 02/28/2024 CBC WITH DIFFE RENTI AL/PL ATELE T immature grans (abs) 0.0 x10e3 /uL 0.0-0. 1 Not Available [facility] ([facility]) [address] [facility], [place], [address], 02/28/2024 12:06:16 02/27/20 24 02/28/2024 CBC WITH DIFFE RENTI AL/PL ATELE T NRBC GLASS NOVELTY MAKER Not Available [facility] ([facility]) [address] [facility], [place], [address], 02/28/2024 12:06:16 02/27/20 24 02/28/2024 CBC WITH DIFFE RENTI AL/PL ATELE T hematology comments: GLASS NOVELTY MAKER Not Available [facility] ([facility]) [address] [facility] [address], [place], [address], 02/28/2024 12:06:16 02/27/20 24 02/28/2024 BASIC METAB OLIC PANEL (8) glucose 151 mg/dL 70-99 above high normal Not Available [facility] ([facility]) [address] [facility] [place], [address], 02/28/2024 12:06:17 02/27/20 24 02/28/2024 BASIC METAB OLIC PANEL (8) BUN 6 mg/dL 6-24 Not Available [facility] ([facility]) [address] [facility] [place], [address], 02/28/2024 12:06:17 02/27/20 24 02/28/2024 BASIC METAB OLIC PANEL (8) creatinine 0.51 mg/dL 0.57-1 .00 below low normal Not Available [facility] ([facility]) [address] [facility] [place], [address], 02/28/2024 12:06:17 02/27/20 24 02/28/2024 BASIC METAB OLIC PANEL (8) eGFR 114 mL/mi n/1.7 3 >59 Not Available [facility] ([facility]) [address] [facility] [place], [address], 02/28/2024 12:06:17 02/27/20 24 02/28/2024 BASIC METAB OLIC PANEL (8) BUN/creatini ne ratio 12 9-23 Not Available [facility] ([facility]) [address] [place], [address], 02/28/2024 12:06:17 02/27/20 24 02/28/2024 BASIC METAB OLIC PANEL (8) sodium 141 mmol/ L 134-14 4 Not Available [facility] ([facility]) [address] [place], [address], 02/28/2024 12:06:17 02/27/20 24 02/28/2024 BASIC METAB OLIC PANEL (8) potassium 4.6 mmol/ L 3.5-5. 2 Not Available [facility] ([facility]) [address] [facility] [place], [address], 02/28/2024 12:06:17 02/27/20 24 02/28/2024 BASIC METAB OLIC PANEL (8) chloride 98 mmol/ L 96-106 Not Available [facility] ([facility]) [address] [facility] [place], [address], 02/28/2024 12:06:17 02/27/20 24 02/28/2024 BASIC METAB OLIC PANEL (8) carbon dioxide, total 31 mmol/ L 20-29 above high normal Not Available [facility] ([facility]) [address] [facility] [place], [address], 02/28/2024 12:06:17 02/27/20 24 02/28/2024 BASIC METAB OLIC PANEL (8) calcium 9.8 mg/dL 8.7-10 .2 Not Available [facility] ([facility]) [address] [facility] [place], [address], 02/28/2024 12:06:17 02/27/20 24 02/28/2024 LIPID PANEL cholesterol, total 178 mg/dL 100-19 9 Not Available [facility] ([facility]) [address] [facility] [address], [place], [address], 02/28/2024 12:06:18 02/27/20 24 02/28/2024 LIPID PANEL triglyceride s 116 mg/dL 0-149 Not Available [facility] ([facility]) [address] [facility] [place], [address], 02/28/2024 12:06:18 02/27/20 24 02/28/2024 LIPID PANEL HDL cholesterol 96 mg/dL >39 Not Available [facility] ([facility]) [address] [facility] [place], [address], 02/28/2024 12:06:18 02/27/20 24 02/28/2024 LIPID PANEL VLDL cholesterol luke 20 mg/dL 5-40 Not Available [facility] ([facility]) [address] [facility], [place], [address], 02/28/2024 12:06:18 02/27/20 24 02/28/2024 LIPID PANEL LDL chol calc (nih) 62 mg/dL 0-99 Not Available [facility] ([facility]) [address] [facility] [address], [place], [address], 02/28/2024 12:06:18 02/27/20 24 02/28/2024 LIPID PANEL comment: GLASS NOVELTY MAKER Not Available [facility] ([facility]) [address] [facility] [address], [place], [address], 02/28/2024 12:06:18 02/27/20 24 02/28/2024 LDL PETE STERO L (DIRE CT) LDL chol. (direct) 65 mg/dL 0-99 Not Available [facility] ([facility]) [address] [facility] [address], [place], [address], 02/28/2024 12:06:19 02/27/20 24 02/28/2024 ALBUM IN, RANDO M URINE albumin, urine 13.2 ug/mL not estab. Not Available [facility] ([facility]) [address] [facility], [place], [address], 02/28/2024 12:06:20 02/27/20 24 02/28/2024 TSH RFX ON ABNOR MAL TO FREE T4 TSH 1.110 uIU/m L 0.450- 4.500 Not Available [facility] ([facility]) [address] [place], [address], 02/28/2024 12:06:20 02/27/20 24 02/27/2024 hemog lobin A1C, finge rstic k A1C 8.2 % 4-6 high Not Available In-Office Order Internal Use Only DO Not Attach Compendium DO Not Attach Compendium, Do Not Delete/merge, [id number] 02/27/2024 14:30:40 Result Notes None recorded. Problems Name Problem SNOMED Code Status Onset Date Resolution Date Notes Provider Name and Address Organization Details Recorded Time Allergic rhinitis 34533074 Active Scooter Amador MD [address] [address], [place], [address] , [facility] 5 17:55:35 Type 2 diabetes mellitus without complica tion 769154648 Completed 07/06/2017 Deja Murphy PA-C [address] [address], [place], [address] , [facility] 7 13:54:58 Malaise and fatigue 608569680 Completed 05/24/2017 Xi rodriguez, [facility] 7 09:53:48 Pure hypercho lesterol emia 506457206 Completed 10/31/2016 Scooter Amador MD [address] [address], [place], [address] , [facility] 7 14:03:55 Schizoph yanique 83472312 Active Stable on meds. Followed by psych Scooter Amador MD [address] [address], [place], [address] , [facility] 6 13:25:02 Tobacco dependen ce syndrome 01478770 Active Scooter Amador MD [address] [address], [place], [address] , [facility] 6 15:15:56 Type 2 diabetes mellitus 60277253 Completed 01/28/2015 Deja Murphy PA-C [address] [address], [place], [address] , [facility] 7 13:55:02 Cough 61888489 Completed 05/24/2017 Xi rodriguez, [facility] 7 09:53:54 Nasal congesti on 26715356 Completed 05/24/2017 Xi rodriguez, [facility] 7 09:53:58 Type 2 diabetes mellitus 65831703 Completed 07/06/2017 Deja Murphy PA-C [address] [facility] [address], [place], [address] , [facility] 7 13:55:02 Gynecolo gic examinat ion Active Scooter Amador MD [address] [facility] [address], [place], [address] , [facility] 5 06:59:59 Chest pain 84569097 Completed 05/24/2017 Xi rodriguez, [facility] 7 09:53:51 Urinary incontin ence 222181562 Completed 200704/14/2014 RESOLVED DATE: 04/23/20 08; RECORDED 04/23/20 08 10:15AM BY SCOOTER SILVA MD, ANNOTATI ON/ADDEN DUM Not Available [facility] 4 14:17:47 Urinary incontin ence 111882911 Completed 200705/04/2014 RESOLVED DATE: 04/23/20 08; RECORDED 04/23/20 08 10:15AM BY SCOOTER SILVA MD, ANNOTATI ON/ADDEN DUM Not Available [facility] 4 06:38:56 Cough 50947769 Completed 200704/14/2014 DATE: 08/06/20 08; IMPRESSI ON: W/ WHEEZING .; RECORDED 05/01/20 12 9:48AM BY KATY CATALAN I, ANNOTATI ON/ADDEN DUM Xi rodriguez, [facility] 7 09:53:54 Administ ration of bacteria l and viral vaccine Completed 200704/14/2014 RECORDED 08/06/20 08 2:05PM BY GM SEAMAN, OFFICE VISIT Not Available [facility] 4 14:17:46 Cough 10491505 Completed 200705/04/2014 DATE: 08/06/20 08; IMPRESSI ON: W/ WHEEZING .; RECORDED 05/01/20 12 9:48AM BY KATY CATALAN I, SIXTOATI ON/ADDEN DUM [facility] 7 09:53:54 Administ ration of bacteria l and viral vaccine Completed 200705/04/2014 RECORDED 08/06/20 08 2:05PM BY GM SEAMAN, OFFICE VISIT Not Available [facility] 4 06:38:56 Acute sinusiti s 13634313 Completed 200804/14/2014 RECORDED 01/13/20 09 10:58AM BY MIRYAM CELIS MA, ANNOTATI ON/ADDEN DUM Not Available [facility] 4 14:17:44 Eruption 469727409 Completed 200804/14/2014 RECORDED 01/13/20 09 10:58AM BY MIRYAM CELIS MA, ANNOTATI ON/ADDEN DUM Not Available [facility] 4 14:17:46 Acute sinusiti s 83434191 Completed 200805/04/2014 RECORDED 01/13/20 09 10:58AM BY MIRYAM CELIS MA, ANNOTATI ON/ADDEN DUM Not Available [facility] 4 06:38:55 Eruption 623446048 Completed 200805/04/2014 RECORDED 01/13/20 09 10:58AM BY MIRYAM CELIS MA, ANNOTATI ON/ADDEN DUM Not Available [facility] 4 06:38:56 Trichomo nal vulvovag initis 21076327 Completed 201004/14/2014 DATE: 03/02/20 11; RECORDED 05/01/20 12 9:48AM BY SIXTO GALVEZATI ON/ADDEN DUM Not Available [facility] 4 14:17:46 Trichomo nal vulvovag initis 71021913 Completed 201005/04/2014 DATE: 03/02/20 11; RECORDED 05/01/20 12 9:48AM BY SIXTO GALVEZATI ON/ADDEN DUM Not Available [facility] 4 06:38:56 Influenz a vaccine needed 51085667976 06 Completed 201004/14/2014 DATE: 06/09/20 11; RECORDED 05/01/20 12 9:48AM BY KATY CATALAN I ANNOTATI ON/ADDEN DUM Not Available [facility] 4 14:17:45 Influenz a vaccine needed 72999215525 06 Completed 201005/04/2014 DATE: 06/09/20 11; RECORDED 05/01/20 12 9:48AM BY SIXTO GALVEZATI ON/ADDEN DUM Not Available [facility] 4 06:38:55 Abdomina l pain 23336364 Completed 201104/14/2014 IMPRESSI ON: PT WITH INTERMIT [...] GALVEZATI ON/ADDEN DUM Not Available [facility] 4 14:17:44 Dizzines s and giddines s 634980016 Completed 201104/14/2014 RECORDED 05/01/20 12 9:48AM BY ANTHONY GALVEZ ON/ADDEN DUM Not Available [facility] 4 14:17:45 Dysmenor seng 985421276 Completed 201104/14/2014 RECORDED 05/01/20 12 9:48AM BY SIXTO GALVEZATI ON/ADDEN DUM Not Available [facility] 4 14:17:45 Respirat ory finding Completed 201104/14/2014 RECORDED 05/01/20 12 9:48AM BY SIXTO GALVEZATI ON/ADDEN DUM Not Available [facility] 4 14:17:45 Blood chemistr y outside referenc e range 815664763 Completed 201104/14/2014 RECORDED 05/01/20 12 9:48AM BY SIXTO GALVEZATI ON/ADDEN DUM Not Available [facility] 4 14:17:45 Disorder of hair AND/OR hair follicle Completed 201104/14/2014 RECORDED 05/01/20 12 9:48AM BY SIXTO GALVEZATI ON/ADDEN DUM Not Available [facility] 4 14:17:45 Well child 910464198 Completed 201104/14/2014 RECORDED 05/01/20 12 9:48AM BY SIXTO GALVEZATI ON/ADDEN DUM Not Available [facility] 4 14:17:45 Onychomy cosis due to dermatop hyte 781089958 Completed 201104/14/2014 RECORDED 05/01/20 12 9:48AM BY ANTHONY GALVEZ ON/ADDEN DUM Not Available [facility] 4 14:17:46 Knee pain Completed 201104/14/2014 RECORDED 05/01/20 12 9:48AM BY SIXTO GALVEZATI ON/ADDEN DUM Not Available [facility] 4 14:17:46 Posterio r rhinorrh ea 03054672 Completed 201104/14/2014 RECORDED 05/01/20 12 9:48AM BY ANTHONY GALVEZ ON/ADDEN DUM Not Available [facility] 4 14:17:46 Procedur e refused Completed 201104/14/2014 RECORDED 05/01/20 12 9:48AM BY SIXTO GALVEZATI ON/ADDEN DUM Not Available [facility] 4 14:17:46 Speciali zed medical examinat ion Completed 201104/14/2014 RECORDED 05/01/20 12 9:48AM BY ANTHONY GALVEZ ON/ADDEN DUM Not Available [facility] 4 14:17:46 Screenin g for malignan t neoplasm of cervix Completed 201104/14/2014 RECORDED 05/01/20 12 9:48AM BY KATY CATALAN I ANNOTATI ON/ADDEN DUM Not Available [facility] 4 14:17:46 Chronic sinusiti s 02850415 Completed 201104/14/2014 RECORDED 05/01/20 12 9:48AM BY KATY CATALAN I ANNOTATI ON/ADDEN DUM Not Available [facility] 4 14:17:46 Abdomina l pain 68320729 Completed 201105/04/2014 IMPRESSI ON: PT WITH INTERMIT [...] BY SIXTO GALVEZATI ON/ADDEN DUM Not Available [facility] 4 06:38:55 Dizzines s and giddines s 808664132 Completed 201105/04/2014 RECORDED 05/01/20 12 9:48AM BY SIXTO GALVEZATI ON/ADDEN DUM Not Available [facility] 4 06:38:55 Dysmenor seng 383905118 Completed 201105/04/2014 RECORDED 05/01/20 12 9:48AM BY SIXTO GALVEZATI ON/ADDEN DUM Not Available [facility] 4 06:38:55 Respirat ory finding Completed 201105/04/2014 RECORDED 05/01/20 12 9:48AM BY KATY CATALAN I ANNOTATI ON/ADDEN DUM Not Available [facility] 4 06:38:55 Blood chemistr y outside referenc e range 023768454 Completed 201105/04/2014 RECORDED 05/01/20 12 9:48AM BY SIXTO GALVEZATI ON/ADDEN DUM Not Available [facility] 4 06:38:55 Disorder of hair AND/OR hair follicle Completed 201105/04/2014 RECORDED 05/01/20 12 9:48AM BY SIXTO GALVEZATI ON/ADDEN DUM Not Available [facility] 4 06:38:55 Well child 966128716 Completed 201105/04/2014 RECORDED 05/01/20 12 9:48AM BY SIXTO GALVEZATI ON/ADDEN DUM Not Available [facility] 4 06:38:55 Onychomy cosis due to dermatop hyte 139131636 Completed 201105/04/2014 RECORDED 05/01/20 12 9:48AM BY SIXTO GALVEZATI ON/ADDEN DUM Not Available [facility] 4 06:38:56 Knee pain Completed 201105/04/2014 RECORDED 05/01/20 12 9:48AM BY SIXTO GALVEZATI ON/ADDEN DUM Not Available [facility] 4 06:38:56 Posterio r rhinorrh ea [id number] Completed 201105/04/2014 RECORDED 05/01/20 12 9:48AM BY SIXTO GALVEZATI ON/ADDEN DUM Not Available [facility] 4 06:38:56 Procedur e refused Completed 201105/04/2014 RECORDED 05/01/20 12 9:48AM BY SIXTO GALVEZATI ON/ADDEN DUM Not Available [facility] 4 06:38:56 Speciali zed medical examinat ion Completed 201105/04/2014 RECORDED 05/01/20 12 9:48AM BY SIXTO GALVEZATI ON/ADDEN DUM Not Available [facility] 4 06:38:56 Screenin g for malignan t neoplasm of cervix Completed 201105/04/2014 RECORDED 05/01/20 12 9:48AM BY ANTHONY GALVEZ ON/ADDEN DUM Not Available [facility] 4 06:38:56 Chronic sinusiti s 82105850 Completed 201105/04/2014 RECORDED 05/01/20 12 9:48AM BY ANTHONY GALVEZ ON/ADDEN DUM Not Available [facility] 4 06:38:56 Diarrhea 03299069 Completed 201104/14/2014 IMPRESSI ON: THIS SEEMS LIKE IBS GIVEN HER SX AND THE AMOUNT OF TIME SHE HAS HAD SX. DOUBT INFECTIO US BECAUSE OF THE DURATION . WILL CHECK STOOL STUDIES NEXT VISIT IF STILL SYMPTOMA TIC.; RECORDED 07/08/20 12 11:19AM BY ANTHONY GALVEZ ON/ADDEN DUM Not Available [facility] 4 14:17:45 Irritabl e bowel syndrome 22933463 Completed 201104/14/2014 RECORDED 07/08/20 12 11:19AM BY ANTHONY GALVEZ ON/ADDEN DUM Not Available [facility] 4 14:17:46 Diarrhea 75660673 Completed 201105/04/2014 IMPRESSI ON: THIS SEEMS LIKE IBS GIVEN HER SX AND THE AMOUNT OF TIME SHE HAS HAD SX. DOUBT INFECTIO US BECAUSE OF THE DURATION . WILL CHECK STOOL STUDIES NEXT VISIT IF STILL SYMPTOMA TIC.; RECORDED 07/08/20 12 11:19AM BY ANTHONY GALVEZ ON/ADDEN DUM Not Available [facility] 4 06:38:55 Irritabl e bowel syndrome 97201501 Completed 201105/04/2014 RECORDED 07/08/20 12 11:19AM BY ANTHONY GALVEZ ON/ADDEN DUM Not Available [facility] 4 06:38:56 Primary malignan t neoplasm of uterine cervix 645964918 Completed 201204/14/2014 AGE 17, LASER REMOVAL; RECORDED 10/08/19 13 11:20AM BY ANTHONY GALVEZ ON/ADDEN DUM Not Available [facility] 4 14:17:46 Acute upper respirat ory infectio n 46957012 Completed 201204/14/2014 RECORDED 10/08/19 13 11:24AM BY SIXTO GALVEZATI ON/ADDEN DUM Not Available [facility] 4 14:17:47 Wheezing 83548495 Completed 201204/14/2014 IMPRESSI ON: NO H/O ASTHMA. SHE WILL CALL IF SHE NEEDS TO USE THE PROAIR DAILY.; RECORDED 10/08/19 13 11:24AM BY SIXTO GALVEZATI ON/ADDEN DUM Not Available [facility] 4 14:17:47 Primary malignan t neoplasm of uterine cervix 507705627 Completed 201205/04/2014 AGE 17, LASER REMOVAL; RECORDED 10/08/19 13 11:20AM BY SIXTO GALVEZATI ON/ADDEN DUM Not Available [facility] 4 06:38:56 Acute upper respirat ory infectio n 65231263 Completed 201205/04/2014 RECORDED 10/08/19 13 11:24AM BY SIXTO GALVEZATI ON/ADDEN DUM Not Available [facility] 4 06:38:56 Wheezing 12998066 Completed 201205/04/2014 IMPRESSI ON: NO H/O ASTHMA. SHE WILL CALL IF SHE NEEDS TO USE THE PROAIR DAILY.; RECORDED 10/08/19 13 11:24AM BY SIXTO GALVEZATI ON/ADDEN DUM Not Available [facility] 4 06:38:56 Type 2 diabetes mellitus without complica tion 942160128 Completed 201204/14/2014 IMPRESSI ON: NO CHANGES IN MGMT; CHECK LABS AND ADJUST IF NEEDED.; RECORDED 07/15/20 13 2:53PM BY AINSLEY MONSIVAIS MA, ANNOTATI ON/ADDEN DUM Deja Murphy PA-C [address] [facility] [address], [place], [address] , [facility] 7 13:54:58 Type 2 diabetes mellitus without complica tion 843156286 Completed 201205/04/2014 IMPRESSI ON: NO CHANGES IN MGMT; CHECK LABS AND ADJUST IF NEEDED.; RECORDED 07/15/20 13 2:53PM BY AINSLEY MONSIVAIS MA, ANNOTATI ON/ADDEN DUM Deja Murphy PA-C [address] [facility] [address], [place], [address] , [facility] 7 13:54:58 Screenin g for malignan t neoplasm of breast Completed 201304/14/2014 RECORDED 12/24/19 14 8:19AM BY KATY CATALAN I ANNOTATI ON/ADDEN DUM Not Available [facility] 4 14:17:45 Tobacco dependen ce syndrome 26036402 Completed 201304/14/2014 RECORDED 12/24/19 14 8:19AM BY KATY CATALAN I ANNOTATI ON/ADDEN DUM Not Available [facility] 4 14:17:45 Adult health examinat ion Completed 201304/14/2014 RECORDED 12/24/19 14 8:19AM BY KATY CATALAN I ANNOTATI ON/ADDEN DUM Not Available [facility] 4 14:17:45 Immuniza tion refused Completed 201304/14/2014 RECORDED 12/24/19 14 8:19AM BY SIXTO GALVEZATI ON/ADDEN DUM Not Available [facility] 4 14:17:46 Screenin g for malignan t neoplasm of breast Completed 201305/04/2014 RECORDED 12/24/19 14 8:19AM BY SIXTO GALVEZATI ON/ADDEN DUM Not Available [facility] 4 06:38:55 Tobacco dependen ce syndrome 59746166 Completed 201305/04/2014 RECORDED 12/24/19 14 8:19AM BY KATY CATALAN I ANNOTATI ON/ADDEN DUM Not Available [facility] 4 06:38:55 Adult health examinat ion Completed 201305/04/2014 RECORDED 12/24/19 14 8:19AM BY KATY CATALAN I ANNOTATI ON/ADDEN DUM Not Available [facility] 4 06:38:55 Immuniza tion refused Completed 201305/04/2014 RECORDED 12/24/19 14 8:19AM BY ANTHONY GALVEZ ON/LYRIC DUM Not Available [facility] 4 06:38:56 Laborato ry procedur e performe d [id number] Completed 201305/26/2014 RECORDED 04/02/20 14 2:51PM BY NATA RIVERS, LAB REQ Scooter Amador MD [address] [facility] [address], [place], [address] , [facility] 4 12:00:02 Chronic obstruct meri pulmonar y disease 56736251 Active 2016 Rubén Murphy PA-C [address] [facility] [address], [place], [address] , [facility] 7 13:22:11 Uncontro lled type 2 diabetes mellitus 571745789 Active 2016 Deja Murphy PA-C [address] [facility] [address], [place], [address] , [facility] 7 13:55:08 Hyperlip idemia 76617430 Active 2020 Scooter Amador MD [address] [facility] [address], [place], [address] , [facility] 1 19:28:56 Problem Notes None recorded. Procedures Surgical History Date Name Laterality Status Provider Name and Address Organization Details Recorded Time 3 Diabetic Foot Exam (Monofilament) completed Scooter Amador MD [address] [address], [place], [address], [facility] 04/24/2023 15:00:38 2 Diabetic Foot Exam (Monofilament) completed Scooter Amador MD [address] [address], [place], [address], [facility] 12/13/2021 14:39:14 1 Diabetic Foot Exam (Monofilament) completed Scooter Amador MD [address] [address], [place], [address], [facility] 02/07/2021 15:13:59 1 Diabetic Foot Exam (Monofilament) completed Scooter Amador MD [address], [address], [facility] 10/15/2020 13:38:53 0 Diabetic Foot Exam (Monofilament) completed Scooter Amador MD [address], [address], [facility] 04/14/2020 17:17:01 9 Diabetic Foot Exam (Monofilament) completed Scooter Amador MD [address], [address], [facility] 03/20/2019 15:31:43 8 Diabetic Foot Exam (Monofilament) completed Scooter Amador MD [address], [address], [facility] 02/28/2018 07:11:43 6 Most Recent Mammogram completed Magda Marcus [facility] 01/07/2016 08:42:52 6 Mammogram Screening completed Magda Marcus [facility] 01/07/2016 08:42:52 5 Date of Last Pap Smear completed Luis Alberto Smith [facility] 03/22/2017 16:18:21 4 Nebulizer tx completed MARIE Pfeiffer [address], [address], [facility] 07/15/2014 14:31:36 Other completed Miryam boone [facility] 07/15/2014 14:13:40 Imaging Results None recorded. Procedure Notes None recorded. Medical Equipment None Reported. Allergies Allergen ID Allergen Name Allergen Category Reaction Reaction Severity Criticality Documentation Date Start Date Code Code System Note Provider Name and Address Organization Details Recorded Time 96054 Actos medicatio n edema moderate Not available 06/29/2021 47412 2 RxNorm Scooter dean MD [address] [facility] [address], [place], [address], [facility] 1 09:25:21 06370 Farxiga medicatio n respirato ry distress Not available Not available 02/25/2025 95990 72 RxNorm Erica Caporale, DATA COORDINATOR null, [facility] 5 13:19:33 Medications Name Sig Start Date Stop Date [...] Available Not Available Not Available divalproe x 250 mg tablet,de layed release 1 TABLET DAILY AT BEDTIME ALONG WITH THE 5OOMG active Not Available Not Available No t Available azithromy manda 250 mg tablet TAKE [...] 11 9:12AM BY SCOOTER SILVA MD, ANNOTATI ON/LYRIC SNELL; Not Available Not Available Not [...] 500 mg tablet,ex tended release 24 hr 1 TABLET DAILY AT [facility] active Not Available Not Available No t [...] N; Not Available Not Available Not Available hydrocort isone 2.5 % topical cream APPLY THIN LAYER TOPICALL Y TO THE AFFECTED AREA TWICE DAILY active Not Available Not Available No t Available lisinopri l 5 mg tablet TAKE [...] Not Available Not Available Not Avai lable pioglitaz one 30 mg tablet TAKE ONE TABLET BY MOUTH DAILY 02/14 completed Seems like it was replaced by [facility] Not Available Not Available Not Available [...] Not Available Not Available No t Available amoxicill in 875 mg-potass ium clavulana te 125 mg tablet Take 1 tablet every 12 hours by oral route as directed for 7 days. 03/11 completed Not Available Not Available Not Available Ventolin HFA 90 mcg/actua tion aerosol inhaler 2 puffs every 4 hours as needed 02/27 completed Not Available Not Available Not Available neomycin- polymyxin -hydrocor t 3.5 mg-10,000 unit/mL-1 % ear drops,angeline p SHAKE LIQUID AND INSTILL 4 DROPS TO AFFECTED EAR THREE TIMES DAILY active Not Available Not Available No t Available albuterol (refill) 90 mcg/actua tion aerosol inhaler EVERY FOUR HOURS, NEEDED 2011 active RECORDED 01/06/20 14 3:40PM BY KATY CATALAN I, OFFICE VISIT; Not Available Not Available Not Available divalproe x ER 250 mg tablet,ex tended release 24 hr TAKE 1 TABLET BY MOUTH EVERY EVENING 02/25 completed Not Available Not Available Not Available risperido ne 2 mg disintegr ating [...] MG IN THE MUSCLE EVERY 2 WEEKS 02/25 completed Not Available Not Available Not Available Flovent HFA 110 mcg/actua tion aerosol inhaler Inhale 2 puffs twice a day by inhalati on route for 30 days. 11/19 completed Not Available Not Available Not Available Flonase DIRECTED 02/02 completed RECORDED 02/03/20 10 2:24PM BY LUIS ALBERTO SMITH, SIXTOATI ON/ADDEN DUM;2 SPRAYS IN EACH NOSTRIL DAILY NEEDED. Not Available Not Available Not Available Metamucil Smooth Texture PRN 08/05 completed RECORDED 08/05/20 12 10:47AM BY SCOOTER SILVA MD, ANNOTATI ON/ADDEN DUM; Not Available Not Available Not Available guaifenes in TID PRN 09/23 completed RECORDED 09/25/19 08 3:44PM BY VANESSA ROME MD, MEDICATI ON AUTO-ASHELY CTIVATIO N; Not Available Not Available Not Available Prolixin DAILY PRN 07/17 completed RECORDED 07/17/20 13 4:58PM BY SCOOTER SILVA MD, ANNOTATI ON/ADDEN DUM; [...] Not Available Not Available Not Available FreeStyle [place] kit DAILY 07/03 completed RECORDED 07/15/20 13 [...] completed Refill request, med was stopped on 2/9/17 Not Available Not Available Not Available Vitamin [...] TAKE 1 TABLET BY MOUTH EVERY DAY 02/25 completed Not Available Not Available Not Available Jardiance 10 mg tablet 1 poqd [...] Not Available Vitals Date Recorded Body height Provider Name an d Address Organization Details Last Updated DateTime 01/22/2025 165.74 cm Janny Zapata MA [facility] 01/22/2025 15:20:54 Date Recorded Body height Body mass index (BMI) Body weight Heart rate Oxygen saturation Oxygen saturation in Arterial blood by Pulse oximetry Body temperature Systolic And Diastolic Provider Name and Address Organization Details Last Updated DateTime 5 165.74 cm 33.6 kg/m2 68010.0 5 g 106 /min 98 % 98 % 97.8 [degF] 124/68 mm[Hg] Erica Olsen LPN [facility] 5 13:16:49 Date Recorded Body height Body mass index (BMI) Body weight Heart rate Oxygen saturation Oxygen saturation in Arterial blood by Pulse oximetry Body temperature Systolic And Diastolic Provider Name and Address Organization Details Last Updated DateTime 4 165.74 cm 34.5 kg/m2 36283.8 1 g 105 /min 95 % 95 % 98 [degF] 143/83 mm[Hg] J[facility] 4 14:37:07 Date Recorded Body height Body mass index (BMI) Body weight Heart rate Oxygen saturation Oxygen saturation in Arterial blood by Pulse oximetry Body temperature Systolic And Diastolic Systolic And Diastolic Provider Name and Address Organization Details Last Updated DateTime 5 165.74 cm 33.4 kg/m2 16544.6 6 g 108 /min 97 % 97 % 97.8 [degF] 145/82 mm[Hg] 124/82 mm[Hg] Chuyita Dubois [facility] 5 13:37:28 Social History Question Answer Notes LastModified by Organizat ion Details LastModified Time Tobacco Smoking Status Current Every Day Smoker Not Available [facility] 07/27/2020 03:36:37 Do You Have An Advance Directive? Yes [id number] Information not available 07/27/2020 Is Blood Transfusion Acceptable In An Emergency? Yes [id number] Information not available 07/27/2020 What Is Your Level Of Caffeine Consumption? Moderate _4 Information not available 07/27/2020 How Much Tobacco Do You Chew? None [id number] Information not available 07/27/2020 What Type Of Diet Are You Following? DIABETIC [id number] Information not available 07/27/2020 Which Illicit Or Recreational Drugs Have You Used? No [id number] Information not available 07/27/2020 Education 8 Information n ot available 05/26/2014 Are There Any Guns Present In Your Home? No [id number] Information not available 07/27/2020 Hard Of Hearing [...] Material From Your Doctor Or Pharmacy? Never [email or web address] Information not available 08/10/2015 Have You Served In The ? No [email or web address] Information not available 10/31/2016 Have You Or Anyone In Your Household Had Any Of The Following Symptoms In The Last 14 Days: Sore Throat, Cough, Chills, Body Aches For Unknown Reasons, Shortness Of Breath For Unknown Reasons, Loss Of Smell, Loss Of Taste, Fever At Or Greater Than 100 Degrees Fahrenheit? No [email or web address] Information not available 04/13/2020 Are You Or Anyone In Your Household A Health Care Provider Or Emergency Responder? No Information not available 04/13/2020 To The Best Of Your Knowledge Have You Been In Close Proximity To Any Individual Who Tested Positive For COVID-19? No [email or web address] Information not available 04/13/2020 Have You Recently Traveled To A COVID-19 High Risk Area Or Gathering In The Last 10 Days? No [email or web address] Information not available 10/14/2020 What Was The Date Of Your Most Recent Tobacco Screening? 01/22/2025 Information not available 01/22/2025 How Many Children Do You Have? 2 [id number] Information not available 07/27/2020 What Is Your Current Pack Years? 30ormorepacky ears [id number] Information not available 07/27/2020 Do You Use Protection During Sex? No [id number] Information not available 07/27/2020 Seat Belts Used Routinely Yes Information not available 08/10/2015 Are You Sexually Active? Yes [id number] Information not available 07/27/2020 Smoke Alarm In Home Yes Information not available 08/10/2015 At What Age Did You Start Smoking Tobacco? 17 [id number] Information not available 07/27/2020 Are You Passively Exposed To Smoke? Yes [email or web address] Information no t available 07/15/2020 How Much Tobacco Do You Smoke? 2 PPD Information not available 01/22/2025 General Stress Level High Information not available 05/26/2014 Do You Use Sunscreen Routinely? Yes [id number] Information not available 07/27/2020 How Many Years [...] is your level of alcohol consumption? Occasional [id number] Information not available 07/27/2020 Do you or have you ever used smokeless tobacco? Never used smokeless tobacco [id number] Information not available 07/27/2020 Are you currently employed? No [id number] Information not available 07/27/2020 Are you able to walk independently without assistance or assistive devices? [email or web address] Information not available 12/13/2021 Are you able to care for yourself independently? No [id number] Information not available 07/27/2020 Do you or have you ever used e-cigarettes or vape? Never used electronic cigarettes [id number] Information not available 07/27/2020 What is your exercise level? Occasional [id number] Information not available 07/27/2020 Mental Status None recorded. Family History Relationship Description Onset Age of this Age Resolved Age Notes LastModified by Organization Details LastModified Time Mother History of malignant neoplasm [email or web address] Not available 08/10 14:34:22 Maternal Grandfather Hypercholest [...] mcg/0.3 mL dose 021 completed GM Vazquez [facility] 06/28/2021 15:21:04 COVID-19, mRNA, LNP-S, PF, 30 mcg/0.3 mL dose 021 completed GM Vazquez [facility] 06/28/2021 15:21:23 Td (adult), 2 Lf tetanus toxoid, preservative free, adsorbed 019 completed Not Available [facility] 10/11/2019 02:21:30 Influenza, split virus, quadrivalent, PF 020 cancelled patient objection GM Richards, [facility] 07/15/2020 14:31:12 Influenza, split virus, trivalent, preservative 008 completed Not Available [facility] 04/07/2014 14:07:42 Tdap 008 completed Not Available [facility] 04/07/2014 14:07:42 Influenza, split virus, trivalent, preservative 010 completed Not Available [facility] 04/07/2014 14:07:42 Influenza, split virus, trivalent, preservative 011 completed Not Available [facility] 04/07/2014 14:07:43 Past Encounters Encounter ID Performer Location Encounter Start Date Encounter Closed Date Diagnosis/Indication Diagnosis SNOMED-CT Code Diagnosis ICD10 Code Diagnosis IMO Codes Diagnosis Note [id number] autoEComm erce [address] [facility] [place] [address] 11/19/2006 00:00:00 [id number] autoEComm erce [address] [facility] [place] [address] 12/10/2006 00:00:00 [id number] autoEComm erce [address] [facility] [place] [address] 02/22/2007 00:00:00 [id number] autoEComm erce [address] [facility] [place] [address] 08/24/2006 00:00:00 [id number] autoEComm erce [address] [facility] [place] [address] 06/22/2006 00:00:00 [id number] autoEComm erce [address] [facility] [place] [address] 06/04/2006 00:00:00 [id number] autoEComm erce [address] [facility] [place] [address] 03/25/2007 00:00:00 [id number] autoEComm erce [address] [facility] [place] [address] 06/05/2007 00:00:00 [id number] autoEComm erce [address] [facility] [place] [address] 10/25/2007 00:00:00 [id number] autoEComm erce [address] [facility] [address] [place] [address] 01/22/2008 00:00:00 [id number] autoEComm erce [address] [facility] [place] [address] 04/23/2008 00:00:00 [id number] autoEComm erce [address] [facility] [place] [address] 08/06/2008 00:00:00 [id number] autoEComm erce [address] [facility] [place] [address] 08/08/2008 00:00:00 [id number] autoEComm erce [address] [facility] [place] [address] 10/09/2008 00:00:00 [id number] autoEComm erce [address] [facility] [place] [address] 12/11/2008 00:00:00 [id number] autoEComm erce [address] [facility] [place] [address] 01/12/2009 00:00:00 [id number] autoEComm erce [address] [facility] [place] [address] 04/26/2009 00:00:00 [id number] autoEComm erce [address] [facility] [place] [address] 07/29/2009 00:00:00 [id number] autoEComm erce [address] [facility] [place] [address] 09/07/2009 00:00:00 [id number]Comm [address] [place] [address] 02/09/2010 00:00:00 [id number] [address]EComm erce [address] [place] [address] 03/11/2010 00:00:00 [id number] autoEComm erce [address] [facility] [address] [place] [address] 05/31/2010 00:00:00 [id number] autoEComm erce [address] [facility] [address] [place] [address] 06/21/2010 00:00:00 [id number] autoEComm erce [address] [facility] [address] [place] [address] 08/24/2010 00:00:00 [id number] autoEComm erce [address] [facility] [place] [address] 09/12/2010 00:00:00 [id number] autoEComm erce [address] [facility] [place] [address] 11/24/2010 00:00:00 [id number] autoEComm erce [address] [facility] [place] [address] 01/20/2011 00:00:00 [id number] autoEComm erce [address] [facility] [place] [address] 03/02/2011 00:00:00 [id number] autoEComm erce [address] [facility] [place] [address] 06/09/2011 00:00:00 [id number] autoEComm erce [address] [facility] [place] [address] 10/03/2011 00:00:00 [id number] autoEComm erce [address] [facility] [place] [address] 02/05/2012 00:00:00 [id number] autoEComm erce [address] [facility] [place] [address] 03/05/2012 00:00:00 [id number] autoEComm erce [address] [place] [address] 05/01/2012 00:00:00 [id number] [address]EComm erce [address] [place] [address] 07/08/2012 00:00:00 [id number] autoEComm erce [address] [facility] [address] [place] [address] 10/08/2012 00:00:00 [id number] autoEComm erce [address] [place] [place] [address] 01/09/2013 00:00:00 [id number] autoEComm erce [address] [facility] [place] [address] 07/15/2013 00:00:00 [id number] autoEComm erce [address] [facility] [place] [address] 01/05/2014 00:00:00 [id number] autoEComm erce [address] [facility] [place] [address] 11/09/2009 00:00:00 [id number] autoEComm erce [address] [facility] [place] [address] 04/09/2013 00:00:00 [id number] autoEComm erce [address] [facility] [place] [address] 11/28/2011 00:00:00 [id number] autoEComm erce [address] [facility] [place] [address] 09/15/2011 00:00:00 [id number] autoEComm erce [address] [facility] [place] [address] 07/11/2011 00:00:00 [id number] Scooter Amador MD Main Office [address] [facility] [address] [place] [address] 05/26/2014 11:43:44 05/26/2014 12:22:40 Type 2 diabetes mellitus 99328318 Pure hypercholesterolemia 562896386 Schizophrenia 85303346 Tobacco de pendence syndrome 41685640 [id number] MARIE Pfeiffer Main Office [address] [place] [address] 07/15/2014 13:46:49 07/15/2014 14:50:06 Allergic rhinitis 47155512 Cough 35825982 Cough, congestion , insp/ exp wheezing, hoarse voice, tachycardi a, sat 93% RA. Will treat with prednisone burst and zpak for possible bacterial infection. Also recommend patient use her inhaler 2 puffs every 4 hours as needed for cough/ wheezing. Stay well hydrated, humidifier as needed, rest, tylenol or ibuprofen as needed for pain/ fever. Nasal congestion [id number] Scooter Amador MD Main Office [address] [address] [place] [address] 01/27/2015 14:32:48 01/27/2015 15:55:21 Adult health examination [id number] Administra tion of pneumococcal vaccine 80275386 Type 2 irasema betes mellitus without complication 371209302 will increase her metformin from 500 bid to 1000 bid since her A1C is no longer at goal. Screening for malignant neoplasm of breast 655006670 Pure hypercholesterolemia 464906282 will increase her dose from 20 to 40 mg since her LDL is not at goal. Schizophrenia 30599334 on meds, living in a jail and followed by psych. [id number] Scooter Amador MD Main Office [address] [address] [place] [address] 05/06/2015 14:03:50 05/06/2015 15:26:34 Type 2 diabetes mellitus 50864349 Pure hypercholesterolemia 543178151 will increase her dose from 20 to 40 mg since her LDL is not at goal. Allergic rhinitis 63658358 continue current mgmt [id number] Scooter Amador MD Main Office [address] [place] [address] [place] [address] 08/10/2015 14:23:33 08/10/2015 15:23:14 Type 2 diabetes mellitus 10901209 E11.9 her A1C has been at goal in the past. She is c/w her meds. Gynecologi c examination 25136725 Z01.411 Screening for malignant neoplasm of breast 918496862 Z12.39 she has never had a mammogram because she has been anxious about going but states that she feels she is now ready. Tobacco de pendence syndrome 87705395 F17.290 we spoke about quitting. She stopped smoking in the past during each of her pregnancie s. [id number] Scooter Amador MD Main Office [address] [address] [place] [address] 11/09/2015 14:31:59 11/09/2015 15:27:25 Type 2 diabetes mellitus 18576030 E11.9 her A1C is at goal in the past. She is c/w her meds. Schizophrenia 30221504 F 20.3 on meds, living in a jail and followed by psych. Tobacco de pendence syndrome 28169242 F17.290 we spoke about quitting. She stopped smoking in the past during each of her pregnancie s. Pure hypercholesterolemia 080807549 E78.0 we increased her dose from 20 to 40 mg since her LDL was not at goal. Recheck fasting lipid level. Chest pain 49452931 R07. 9 she is at high risk for heart disease because of her smoking and diabetes [id number] Scooter Amador MD Main Office [address] [place] [address] 02/16/2016 12:45:58 02/16/2016 13:25:59 Type 2 diabetes mellitus 75764342 E11.9 her A1C is at goal in the past. She is c/w her meds. Schizophrenia 94232596 F 20.3 on meds, living in a jail and followed by psych. [id number] Deja Murphy PA-C Main Office [address] [address] [place] [address] 06/30/2016 15:03:47 06/30/2016 15:45:43 Injury of finger 59754869 S69.82XA L big finger injury due to fall. XRAys to r/o fracture. Immobiliza tions with splint, ice several times daily and NSAIDs as directed for 7-10 days. referral to hand specialist . [id number] Deja Murphy PA-C Main Office [address] [place] [address] 09/22/2016 15:06:27 09/22/2016 16:05:08 Cough 00772663 R05 Acute pharyngitis 838316 003 J02.9 Acute sinusitis 79657739 J01.90 Wheezing 34779055 R06.2 [id number] Scooter Amador MD Main Office [address] [address] [place] [address] 10/31/2016 13:40:19 10/31/2016 14:46:59 Adult health examination 312522137 Z00.00 UTD with immunizati ons. Had a PAP done Jul 2015. Type 2 irasema betes mellitus 18035229 E11.9 her A1C is a little above goal. She is c/w her meds. She will try to make some changes and we will f/u in 3 months w/o making any changes in meds right now. We will make an eye appointmen t for her. Schizophrenia 21051244 F 20.3 on meds, living in a jail and followed by psych. Tobacco de pendence syndrome 83020876 F17.290 we spoke about quitting. She stopped smoking in the past during each of her pregnancie s. Hyperlipidemia 07837032 E78.5 We increased her med at a previous visit and will recheck her fasting lipid level. [id number] Rubén Murphy PA-C Main Office [address] [address] [place] [address] 12/25/2016 11:34:50 12/25/2016 12:20:54 Acute conjunctivitis 71617976 H10.33 Nasal congestion 7255647 0 R09.81 [id number] Scooter Amador MD Main Office [address] [address] [place] [address] 03/06/2017 12:39:50 03/06/2017 13:33:42 Type 2 diabetes mellitus 70099902 E11.9 Her A1C continues to rise as does her weight. We will add januvia to her regimen. Schizophrenia 21199490 F 20.3 on meds, living in a jail and followed by psych. [id number] Rubén Murphy PA-C Main Office [address] [address] [place] [address] 05/10/2017 15:11:49 05/10/2017 16:27:12 Sore throat 148026805 J02.9 Pneumonia 166786508 J18. 9 Wheezing 74611522 R06.2 is running low on proair - has used it past few days - will renew [id number] Rubén Murphy PA-C Main Office [address] [place] [address] 05/24/2017 09:33:03 05/24/2017 11:17:36 Dyspnea 116302991 R06.00 much improved p pna rx pt [...] gums - it has helped before Pneumonia 416552016 J18. 9 resolved s/p rx Tobacco de pendence syndrome 19093283 F17.200 strongly encouraged tob cessation - she states she will try ankit gums again - this had worked for her in the past Cough 84987015 R05 most likely d/t prolonged tobacco exp. - see below Chronic ob structive pulmonary disease 97351156 J44.9 see above [id number] Scooter Amador MD Main Office [address] [place] [address] 06/06/2017 14:22:12 06/06/2017 16:18:04 Type 2 diabetes mellitus 89706926 E11.9 Since her A1C was rising we did a script for januvia which was not covered by her insurance. We then did a script for actos which she only filled about 2-3 weeks ago. Her A1C has come down slightly so we will not make any changes at this time. Chronic ob structive pulmonary disease 59408371 J44.9 We discussed quitting smoking to help prevent further progressio n. Since she denies SOB and exam is normal we will not start any meds but will monitor her function. [id number] Deja Murphy PA-C Main Office [address] [facility] [address] [place] [address] 07/06/2017 12:59:15 07/06/2017 14:07:16 Uncontrolled type 2 diabetes mellitus 235569157 E11.65 Total time spent teaching and coordinati [...] be set up to see notionist at [facility]. Pt. was advised to start [...] m. Body mass index 30+ - obesity 534726593 Z68.34 Obesity 002823252 E66.9 [id number] Scooter Amador MD Main Office [address] [address] [place] [address] 09/05/2017 12:48:05 09/05/2017 13:58:41 Uncontrolled type 2 diabetes mellitus 255742043 E11.65 Excellent improvemen t in A1C which is now less than 7.0 again (down to 6.8). She will continue with current mgmt since it is working. Dysuria 48808458 R30.0 No longer with symptoms so will send culture and will not do abx for now. She was advised to drink more fluids. Schizophrenia 33757381 F 20.3 on meds, living on her own with super[facility]io [facility] and followed by psych. [id number] Deja Murphy PA-C Main Office [address] [address] [place] [address] 10/23/2017 14:27:22 10/23/2017 15:48:51 Uncontrolled type 2 diabetes mellitus 374498995 E11.65 STable type II Diabetes w/o complicati ons. Continue current meds. Discussed lowering calories even further and increasing exercise activity. Test glucose 1 time per day and bring glucose log to next visit. F/u 3 m. Repeat labs. Upper resp iratory infection 19823494 J06.9 Wheezing 95069099 R06.2 Chronic ob structive pulmonary disease 93002038 J44.9 Body mass index 30+ - obesity 491977311 E66.01 Z68.35 [id number] Scooter Amador MD Main Office [address] [facility] [address] [facility] [place] [address] 02/27/2018 13:02:09 02/27/2018 14:22:54 Adult health examination 801346303 Z00.00 UTD with immunizati ons. Had a PAP done Jul 2015 and will return for a PAP Genital warts 942342136 A63.0 Will try topical treatment and if persists will Uncontroll ed type 2 diabetes mellitus 468396650 E11.65 A1C continues to be at goal below 7.0 and is currently at 6.3 . She will continue with current mgmt since it is working. [id number] Scooter Amador MD Main Office [address] [place] [address] 06/06/2018 12:57:48 06/06/2018 13:58:46 Uncontrolled type 2 diabetes mellitus 285428250 E11.65 A1C continues to be at goal below 7.0 and is currently at 6.6. She will continue with current mgmt since it is working. Schizophrenia 26774841 F 20.3 on meds, living on her own with supervisio n and followed by psych. [id number] Scooter Amador MD Main Office [address] [address] [place] [address] 08/22/2018 13:25:23 08/22/2018 14:17:54 Acute pharyngitis 727748816 J02.9 Cough 09432745 R05 She will use robitussin prn. [id number] Scooter Amador MD Main Office [address] [place] [address] 03/20/2019 15:00:36 03/20/2019 15:56:26 Uncontrolled type 2 diabetes mellitus 650704655 E11.65 A1C continues to be at goal below 7.0 and is currently at 6.7. She will continue with current mgmt since it is working. Schizophrenia 07141023 F 20.3 on meds, living on her own with supervis n and followed by psych. Chronic ob structive pulmonary disease 11779979 J44.9 Continues to smoke Requires a tetanus booster 954580010 Z23 [id number] Scooter Amador MD Main Office [address] [address] 06/23/2019 14:34:34 06/23/2019 15:59:51 Adult health examination 204173179 Z00.00 UTD with immunizati ons. Had a PAP done Jul 2015 and will return for a PAP Type 2 irasema betes mellitus without complication 185028623 E11.9 Body mass index 30+ - obesity 915998251 E66.01 Z68.36 Schizophrenia 51381098 F 20.3 on meds, [facility]. [id number] Scooter Amador MD Main Office [address] [address] 04/13/2020 12:37:21 04/13/2020 13:38:09 Uncontrolled type 2 diabetes mellitus 888191305 E11.65 A1C continues to be at goal below 7.0 and is currently at 6.7. She will continue with current mgmt since it is working. Lateral ep icondylitis of right humerus 5469923679 86118 M77.11 Chronic ob structive pulmonary disease 50383186 J44.9 Continues to smoke Schizophrenia 98040429 F 20.3 on meds, [facility]. Tobacco de pendence syndrome 90513746 F17.290 we spoke about quitting. She stopped smoking in the past during each of her pregnancie s. [id number] Scooter Amador MD Main Office [address] [address] 07/15/2020 14:10:04 07/15/2020 15:21:15 Adult health examination 552026625 Z00.00 UTD with immunizati ons but refuses a flu vaccine. Had a PAP done Jul 2015 and will return for a PAP Needs infl uenza immunization 745522971 Z23 Uncontroll ed type 2 diabetes mellitus 180903101 E11.65 Her diabetes is no longer uncontroll ed; her A1C today is 7.0. She was encouraged to stay with the same mgmt. Schizophrenia 19752500 F 20.3 on meds, living on her own with supervis n and followed by psych. Tobacco de pendence syndrome 85787797 F17.290 we spoke about quitting. She stopped smoking in the past during each of her pregnancie s. Body mass index 30+ - obesity 937541612 E66.01 [id number] Scooter Amador MD Main Office [address] [facility] [address] [facility] [place] [address] 10/14/2020 13:41:53 10/14/2020 14:42:06 Uncontrolled type 2 diabetes mellitus 802649666 E11.65 Her A1C increased form 7.0 to 7.7. We will increase her actos from 15 to 30 mg and see her back in 3 months. Hyperlipidemia 30582533 E78.5 We increased her med at a previous visit and LDL is now at goal. Schizophrenia 52032390 F 20.3 on meds, living on her own with [facility] and followed by psych. Chronic ob structive pulmonary disease 98816237 J44.9 Continues to smoke [id number] Scooter Amador MD Main Office [address] [facility] [address] [facility] [place] [address] 02/07/2021 14:23:01 02/07/2021 15:22:47 Uncontrolled type 2 diabetes mellitus 761979181 E11.65 Her A1C continues to increase despite being c/w her meds. Will increase her actos from 30 to 45 mg and she will continue metformin trajenta. Chronic ob structive pulmonary disease 21887475 J44.9 Continues to smoke Hyperlipidemia 74695509 E78.5 LDL at goal. Will check fasting lipid level. Schizophrenia 91652485 F 20.3 on meds, [facility] [id number] Scooter Amador MD [facility] [address] [facility] [address] [facility] [place] [address] 03/17/2021 13:57:16 03/18/2021 14:44:54 Uncontrolled type 2 diabetes mellitus 903527534 E11.65 She has been having SE's since [...] in 2 months. Tobacco de pendence syndrome 12848520 F17.290 we spoke about quitting. She stopped smoking in the past during each of her pregnancie s. Anxiety 33286958 F41.9 It is doubtful that this is secondary to her actos. She will speak to her mental health provider about this. [id number] Scooter Amador MD Main Office [address] [place] [address] 06/28/2021 14:51:15 06/28/2021 15:56:27 Uncontrolled type 2 diabetes mellitus 602484387 E11.65 She was not able to tolerate the actos because of ankle swelling, nausea and bloating. She stopped this a couple of months ago and her SE's resolved. Unfortunat sheila her A1C increased from 8.1 to 9.3. We will add another po med and she understand s that she may need meds that require injections in the future. Schizophrenia 38643071 F 20.3 on meds, living on her own with supervisio n and followed by psych. Hyperlipidemia 58578522 E78.5 LDL at goal. Will check fasting lipid level next appointmen tMaricruz [id number] Scooter Amador MD Main Office [address] [place] [address] 08/16/2021 13:29:39 08/16/2021 14:38:24 Tinea cruris 410231548 B35.6 Candidiasis of vagina 72 978369 B37.3 [id number] Scooter Amador MD Main Office [address] [place] [address] 12/13/2021 12:41:16 12/13/2021 13:49:23 Adult health examination 117562988 Z00.00 UTD with immunizati ons. Had a PAP done Jul 2015 and will return for a PAP. Does not want to do one today. Uncontroll ed type 2 diabetes mellitus 301095430 E11.65 She was not able to tolerate the actos because of ankle swelling, nausea and bloating. She stopped this a couple of months ago and her SE's resolved. Unfortunat sheila her A1C increased from 8.1 to 9.3. We will add another po med and she understand s that she may need meds that require injections in the future. Chronic ob structive pulmonary disease 88859118 J44.9 Continues to smoke Hyperlipidemia 25383799 E78.5 LDL at goal. Will check fasting lipid level. Schizophrenia 39859885 F 20.3 on meds, living on her own with supervis n and followed by psych. Body mass index 30+ - obesity 519866426 E66.01 Z68.33 [id number] Scooter Amador MD Main Office [address] [facility] [address] [place] [address] 08/29/2022 13:05:29 08/29/2022 14:30:53 Uncontrolled type 2 diabetes mellitus 337422744 E11.65 She was not able to tolerate the actos because of ankle swelling, nausea and bloating. She stopped this and her SE's resolved. . We added jardiance and tradjenta and her A1C came down from 9.3 to 7.6. She will work on lifestyle changes to bring this down more. Allergic rhinitis 644346 04 J30.9 continue current mgmt Schizophrenia 59298521 F 20.3 on meds, living on her own with [facility] n and followed by psych. [id number] Scooter Amador MD Main Office [address] [facility] [address] [place] [address] 04/24/2023 14:19:20 04/24/2023 15:26:54 Uncontrolled type 2 diabetes mellitus 124193463 E11.65 She was not able to tolerate the actos because of ankle swelling, nausea and bloating. She stopped this and her SE's resolved. . We added jardiance and tradjenta and her A1C came down from 9.3 to 7.6. She checks her sugars and says that they are generally in the low 100's. Schizophrenia 97896741 F 20.3 on meds, living on her own with supervisio n and followed by psych. Allergic rhinitis 473546 04 J30.9 continue current mgmt Chronic ob structive pulmonary disease 90562863 J44.9 Continues to smoke [id number] Scooter Amador MD Main Office [address] [facility] [address] [facility] [place] [address] 08/07/2023 13:23:20 08/07/2023 14:27:58 Uncontrolled type 2 diabetes mellitus 471990766 E11.65 She was not able to tolerate the actos because of ankle swelling, nausea and bloating. She stopped this and her SE's resolved. . We added jardiance and tradjenta and her A1C came down from 9.3 to 7.2. She checks her sugars and says that they are generally in the low 100's. Adult [facility] th examination 971267609 Z00.00 UTD with immunizati ons. Had a PAP done Jul 2015 and will return for a PAP. Does not want to do one today. Screening for malignant neoplasm of colon 322534833 Z12.11 Tobacco de pendence syndrome 57402137 F17.290 we spoke about quitting. She stopped smoking in the past during each of her pregnancie s. Chronic ob structive pulmonary disease 43587815 J44.9 Continues to smoke Hyperlipidemia 18999732 E78.5 LDL at goal. Will check fasting lipid level. Schizophrenia 58498271 F 20.3 on meds, living on her own with supervisio n and followed by psych. Has some mild depression which is followed by her psych provider. [id number] Scooter Amador MD Main Office [address] [facility] [address] [facility] [place] [address] 11/23/2023 11:21:25 11/23/2023 12:21:38 Uncontrolled type 2 diabetes mellitus 664839103 E11.65 A1C increased from 7.2 to 7.3, Would like to continue on metformin and tradjenta instead of adding med, will stay consistent with exercise and trying to eat better. Does exercises in 3 sets to get through during the day. Tradjenta refilled. Schizophrenia 73926962 F 20.3 on meds, living on her own with [facility] and followed by psych. Allergic rhinitis 229608 04 J30.9 continue current mgmt Chronic ob structive pulmonary disease 79887857 J44.9 Continues to smoke [id number] Scooter Amador MD Main Office [address] [place] [address] 02/27/2024 14:25:32 02/27/2024 15:27:48 Uncontrolled type 2 diabetes mellitus 155867134 E11.65 She was not able to tolerate the Actos because of ankle swelling, nausea and bloating. She stopped this and her SE's resolved. . We added jardiance and tradjenta and her A1C came down from 9.3 to 7.2. But the jardiance is no longer on formulary. She also stopped the tradjenta for unclear reasons but will restart it. Fatigue 99964132 R53.83 Hyperlipidemia 54138982 E78.5 Last LDL at goal. Will check fasting lipid level. Schizophrenia 93921406 F 20.3 on meds, living on her own with [facility] and followed by psych. Has some mild depression which is followed by her psych provider. [id number] Scooter Amador MD Main Office [address] [facility] [address] [place] [address] 01/20/2025 15:07:20 01/20/2025 15:45:35 [id number] Scooter Amador MD [facility] [address] [address] 01/22/2025 13:02:53 01/23/2025 14:51:58 Allergic rhinitis 13226643 J30.9 continue current mgmt Chronic ob structive pulmonary disease 27928201 J44.9 She has been trying to quit smoking and currently smokes less than 5 cigarettes a day. She understand s that she needs to stop completely since increasing the number of daily cigarettes will likely increase with time. She is not currently using any inhalers. As an inpatient she was given oxygen but was not discharged with it. Schizophrenia 83606449 F 20.3 on meds, living on her own with [facility] and followed by psych. Has some mild depression which is followed by her psych provider. Tobacco de pendence syndrome 50660614 F17.290 She has cut back significan tly and knows that she needs to quit totally because of her COPD dx. Community acquired pneumonia 140519055 J15.9 [id number] She was septic and was admitted to [facility]. She was discharged to complete a course of abx and steroids. [id number] Scooter Amador MD Main Office [address] [facility] [address] [facility] [place] [address] 02/25/2025 13:01:35 02/25/2025 13:42:37 Preseptal cellulitis 588077684 L03.213 90733179 x3 days of swelling to the lower and upper lid, erythemato us-denies of any vision changes or pain to the orbital, no pain with EOM-no known trauma to the area-will provide augmentin course and discussed conservati ve measuremen ts Vesicular eczema 8918009 08 L30.1 872 left hand; 3rd and 4th digit- medial aspect-chris l provide topical steroid cream-disc ussed conservati ve measuremen ts [id number] Scooter Amador MD Main Office [address] [facility] [address] [facility] [place] [address] 06/11/2025 13:06:00 06/11/2025 14:03:22 Chronic vertigo 1305885906 9105 R42 33010117 Chronic ot itis externa 86290857 H60.312 [id number] Uncontroll ed type 2 diabetes mellitus 251620033 E11.65 She was not able to tolerate the Actos because of ankle swelling, nausea and bloating. She stopped this and her SE's resolved. . We added jardiance and tradjenta and her A1C came down from 9.3 to 7.2. But the jardiance is no longer on formulary. She also stopped the tradjenta for unclear reasons but will restart it. Hyperlipidemia 29425743 E78.5 Last LDL at goal. Will check fasting lipid level. Health Concerns Section Related Observation LastModified by Organization Detai ls LastModified Time None Recorded Concern Status LastModified by Organization Details LastModified Time None Recorded Advance Directives Directive Y: Payers Insurance Date Sequence Insurance Name Policy Number Policy Chopra Covered Member ID Chopra Member ID Guarantor Name 01/21/2025 3 [employer] (MEDICARE SUPPLEMENT) Aura Hood [id number] Aura Hood 06/11/2025 1 [place] [employer] Aura Hood [id number] Aura Hood 06/11/2025 2 [place] [facility] Aura Hood [id number] Aura Hood Notes Date Note Type Note Provider Name and Address Organization Details Recorded Time 4 text/html HyperlipidemiaReported by PatientHPIFor type of hyperlipidemia, patient reportshypercholesterolemia . For duration, patient reportschronic. For compliance, patient reportsnoncompliant with dietanddoes not exercise. For risk factors, patient reportsdiabetes,smoking, andobesity. For control, patient reportsat goal. For current therapy, patient reportscurrently taking: (lovastatin)andlast ldl level: (74). For complications, patient reportsno coronary artery disease,no peripheral artery disease, andno cardiovascular disease. Diabetes F/UReported by PatientHPIFor associated symptoms, patient reportsweight gain (7 lbs) (since her last appointment.)but reportsno sweats,no headaches,no confusion,no increased thirst,no blurred vision,no numbness of feet, andno calluses on feet. For context, patient reportsnormal range of home blood sugars (in the low 100s) (she has been checking recently and states that most sugars are in the low 100's),checking feet regularly,not missing doses of medications, andno side effects from medications.She stopped the Actos because of SE's and is now taking only the metformin. The jardiance is not on her formulary and she stopped the tradjenta for unclear reasons.ROS as noted in the HPI Her schizophrenia is stable and she has support from the [facility] and is followed by psych. She has had problems in the past with hearing voices but this has not been a problem recently. Scooter Amador MD [address] [address], [place], [address], [facility] 02/27/2024 18:37:36 5 text/html Hospitalization Contact RecordReported by PatientHospitalization Contact RecordFor follow up, [facility]sh[facility],admit date: (please enter in format 'mm/dd/yyyy') (01/13/2025),date of discharge: (please enter in format 'mm/dd/yyyy') (01/20/2025), anddate of contact: (please enter in format 'mm/dd/yyyy') (01/20/2025).Medicare covered inpatient stay? yes Medicare [id number] with in 48 working hours? yes High Complexity code valid on or before:January Moderate Complexity code valid on or before: January HCP on file? no MOLST on file? no Discharge Summary available? yes 49 year old female with several comorbidities presented to [facility] with Shortness of breath associated with [...] 5 days of antibiotic and steriod regimen. [employer] updated medication list as noted. Attempted several times to complete ELZBIETA call cell number is out of services , called emergency contact number no answer, unable to leave message. Attempted to look in [facility]IS for any additional contact infomation no update information was noted . Patient is scheduled to follow up with provider for DM on 02/04/2025 . Scooter Amador MD [address] [address], [place], [phone], [facility] 01/20/2025 15:45:32 5 text/html Hospitalization Contact RecordReported by PatientHospitalization Contact RecordFor follow up, [facility]sh[facility],admit date: (please enter in format 'mm/dd/yyyy') (01/13/2025),date of discharge: (please enter in format 'mm/dd/yyyy') (01/20/2025), anddate of contact: (please enter in format 'mm/dd/yyyy') (01/20/2025).Medicare covered inpatient stay? yesMedicare ELZBIETA with in 48 working hours? yesHigh Complexity code valid on or before:JanuaryModerate Complexity code valid on or before:JanuaryHCP on file? noMOLST on file? noDischarge Summary available? yes 49 year old female with several comorbidities presented to [facility] with shortness of breath associated with weakness. [...] on 02/04/2025 . Scooter Amador MD [address] [address], [place], [phone], [facility] [place] 01/24/2025 11:02:08 5 text/html ROS as noted in the HPI Aura is a 49yr old F who presents for eye redness. Endorses x3 days of swelling and redness to the upper and lower lids and surround skin of the right eye. Denies of any changes in vision or pain with EOM. LESLIE TUCKER [address] [facility] [address], [place], [phone], [facility] [place] 02/25/2025 13:46:31 5 text/html ROS as noted in the HPI She has been having left ear pain for more than a month. She states that previously it hurt when moving her ear but that resolved. She has not been swimming. Denies fever/chills or decreased hearing. No respiratory symptoms. She noted some clear drainage from the ear. In addition, she c/o chronic dizziness that has been going on for years. She often feels unsteady on her feet and often has the sensation that she is going to fall. She denies SOB, CP. She is on many psych meds which may be adding to or causing her symptoms. She had one fall but w/o injury. She has diabetes type 2 and is taking meds but has missed previous appointments and has not had labs done in more than a year. Scooter Amador MD [address] [address], [place], [phone], [facility] 06/11/2025 18:08:43 OBGyn Episode No OBEpisode recorded.
[2025-06-23 17:12] LABS: Hematocrit 45.8 % (37.0-47.0); Hemoglobin 15.7 g/dl (12.0-16.0); Imm Gran Abs Auto 0.04 X10*3/uL (0.00-0.03); Imm Gran Pct Auto 0.4 % (0.0-0.4); Lymphocytes Absolute Auto 4.4 X10*3/uL (1.2-4.9); Mean Corpuscular HGB Conc 34.3 g/dl (31.0-35.0); Mean Corpuscular Hemoglobin 30.1 pg (27.0-33.0); Mean Corpuscular Volume 87.7 fL (80.0-98.0); NRBC Abs Auto 0.000 X10*3/uL (0.0-0.012); NRBC Pct Auto 0.0 /100WBC (0.0-0.2); Platelet Count 196 X10*3/uL (160-400); Red Blood Count 5.22 X10*6/uL (4.20-5.50); White Blood Count 9.8 X10*3/uL (4.8-10.8)
== END 2025-06-23 15:15 | disposition home or self-care (01) ==
LOC: HO.LABR 15:14
PROVIDERS: PCP Internal Medicine
DX: Z79.899 Other long term (current) drug therapy (principal)
CPT/HCPCS: 36415; 85025

== ENCOUNTER 2025-07-21 14:33 | Outpatient (REF) | payer MEDICARE, MEDICAID, SELFPAY ==
[2025-07-21 14:56] LABS: MANUAL DIFF FLAG NO
[2025-07-21 15:16] LABS: Hematocrit 46.0 % (37.0-47.0); Hemoglobin 15.5 g/dl (12.0-16.0); Imm Gran Abs Auto 0.04 X10*3/uL (0.00-0.03); Imm Gran Pct Auto 0.3 % (0.0-0.4); Lymphocytes Absolute Auto 4.6 X10*3/uL (1.2-4.9); Mean Corpuscular HGB Conc 33.7 g/dl (31.0-35.0); Mean Corpuscular Hemoglobin 30.1 pg (27.0-33.0); Mean Corpuscular Volume 89.3 fL (80.0-98.0); NRBC Abs Auto 0.000 X10*3/uL (0.0-0.012); NRBC Pct Auto 0.0 /100WBC (0.0-0.2); Platelet Count 181 X10*3/uL (160-400); Red Blood Count 5.15 X10*6/uL (4.20-5.50); White Blood Count 11.8 X10*3/uL (4.8-10.8)
--- OUTSIDE RECORDS SUMMARY | 2025-07-21 18:59 | XMS_ITS | Data Portability ---
Author Organization [facility], Main Office Address [address] [facility] [address] [place] [address] Care Team Providers Care Motion Picture Photographer Name Role Phone SCOOTER AMADOR Primary Care Provider VIVI COON Psychologist CIERA ROCKWELL Referring Provider Assessment Encounter Date Assessment Date Assessment LastModified by Organization Details LastModified Time 01/22/2025 01/22/2025 This service was provided using telemedicine. Patient consented to telephone visit Patient was located at home in the [facility]. Provider was located in the office. [...] Go To The Location Of Their Choice, [id number] 06/11/2025 13:59:26 CMP, serum or plasma 2024 [...] 2024 025 OMAR [facility], [address], [place], [address], 06/11/2025 13:59:27 LDL, direct , serum 2024 025 OMAR [facility], [address], [place], [address], 06/11/2025 13:59:27 hemogl obin A1C, finger stick 2023 024 [email or web address] In-Office Order, Internal Use Only DO Not Attach Compendium DO Not Attach Compendium, Do Not Delete/merge, [id number] 02/27/2024 15:14:28 microa lbumin , urine 2023 024 OMAR [facility] (Centralized Electronic Ordering - All Locations), Patient Can Go To The Location Of Their Choice, 02/28/2024 12:06:20 LDL, direct , serum 2023 024 OMAR [facility], [address], [place], [address], 02/28/2024 12:06:19 HDL choles terol, serum 2023 024 [email or web address] [facility] (Centralized Electronic Ordering - All Locations), Patient Can Go To The Location Of Their Choice, 09/25/2024 09:12:13 CBC w/ auto diff 2023 024 OMAR [facility], [address], [place], [address], 02/28/2024 12:06:16 BMP, serum or plasma 2023 024 OMAR [facility], [address], [place], [address], 02/28/2024 12:06:17 TSH, ultra- sensit meri, serum 2023 024 OMAR [facility], [address], [place], [address], 02/28/2024 12:06:21 Referral vestib ular therap y referr al - Chroni c vertig o 2024 025 [email or web address] [facility] [place] - [facility] , [address] [facility] , [place], [address], 06/11/2025 14:03:22 Procedures None record ed. Surgeries None record ed. Imaging None record ed. Medication Orders neomyc in-vinicio ymyxin -hydro amanuel 3.5 mg-10, 000 unit/m L-1 % ear drops, susp 2024 025 [facility] #[id number], [address], [place], [phone], 06/11/2025 13:57:14 amoxic illin 875 mg-pot assium clavul anate 125 mg tablet 2024 025 CHAPIN [facility] #99790, [address], [place], [phone], 03/11/2025 05:01:49 hydroc ortiso ne 2.5 % topica l cream 2024 025 CHAPIN [facility] #96762, [address], [place], [phone], 02/25/2025 13:34:43 Vitami n C 250 mg tablet 2024 025 [facility] #61077, [address], [place], [id number], 01/24/2025 10:37:01 Tradje nta 5 mg tablet 2023 024 [facility] #71380, [address], [place], [phone], 02/27/2024 15:14:32 Patient TargetsNo targets recorded. Patient Instructions Encounter Date Encounter Id Patient Instructions Last Modified By Organization Details Last Modified Time 02/27/2024 [id number] schizophrenia: care instructions [email or web address] Not available 02/27/2024 18:37:24 type 2 diabetes: care instructions [email or web address] Not available 02/27/2024 15:14:26 01/20/2025 [id number] I have reviewed the note and agree with the assessment and plan of care. [email or web address] Not available 01/20/2025 15:45:28 01/22/2025 [id number] deciding about using medicines to quit smoking [...] instructions [email or web address] Not available 01/24/2025 10:58:42 06/11/2025 [id number] type 2 diabetes: care instructions [email or web address] Not [...] x10e3 /uL 3.4-10 .8 Not Available [facility] ([facility]) [address] [facility], [place], [address], 02/28/2024 12:06:16 02/27/20 24 02/28/2024 CBC WITH DIFFE RENTI AL/PL ATELE T RBC 5.03 x10e6 /uL 3.77-5 .28 Not Available [facility] ([facility]) [address] [place], [address], 02/28/2024 12:06:16 02/27/20 24 02/28/2024 CBC WITH DIFFE RENTI AL/PL ATELE T hemoglobin 15.3 g/dL 11.1-1 5.9 Not Available [facility] ([facility]) [address] [facility], [place], [address], 02/28/2024 12:06:16 02/27/20 24 02/28/2024 CBC WITH DIFFE RENTI AL/PL ATELE T hematocrit 46.4 % 34.0-4 6.6 Not Available [facility] ([facility]) [address] [place], [address], 02/28/2024 12:06:16 02/27/20 24 02/28/2024 CBC WITH DIFFE RENTI AL/PL ATELE T MCV 92 fL 79-97 Not Available [facility] ([facility]) [address] [place], [address], 02/28/2024 12:06:16 02/27/20 24 02/28/2024 CBC WITH DIFFE RENTI AL/PL ATELE T MCH 30.4 pg 26.6-3 3.0 Not Available [facility] ([facility]) [address] [place], [address], 02/28/2024 12:06:16 02/27/20 24 02/28/2024 CBC WITH DIFFE RENTI AL/PL ATELE T MCHC 33.0 g/dL 31.5-3 5.7 Not Available [facility] ([facility]) [address] [facility], [place], [address], 02/28/2024 12:06:16 02/27/20 24 02/28/2024 CBC WITH DIFFE RENTI AL/PL ATELE T RDW 13.5 % 11.7-1 5.4 Not Available [facility] ([facility]) [address] [facility], [place], [address], 02/28/2024 12:06:16 02/27/20 24 02/28/2024 CBC WITH DIFFE RENTI AL/PL ATELE T platelets 222 x10e3 /uL 150-45 0 Not Available [facility] ([facility]) [address] [facility], [place], [address], 02/28/2024 12:06:16 02/27/20 24 02/28/2024 CBC WITH DIFFE RENTI AL/PL ATELE T neutrophils 47 % not estab. Not Available [facility] ([facility]) [address] [facility], [place], [address], 02/28/2024 12:06:16 02/27/20 24 02/28/2024 CBC WITH DIFFE RENTI AL/PL ATELE T lymphs 44 % not estab. Not Available [facility] ([facility]) [address] [facility], [place], [address], 02/28/2024 12:06:16 02/27/20 24 02/28/2024 CBC WITH DIFFE RENTI AL/PL ATELE T monocytes 8 % not estab. Not Available [facility] ([facility]) [address] [facility], [place], [address], 02/28/2024 12:06:16 02/27/20 24 02/28/2024 CBC WITH DIFFE RENTI AL/PL ATELE T eos 1 % not estab. Not Available [facility] ([facility]) [address] [place], [address], 02/28/2024 12:06:16 02/27/20 24 02/28/2024 CBC WITH DIFFE RENTI AL/PL ATELE T basos 0 % not estab. Not Available [facility] ([facility]) [address] [facility], [place], [address], 02/28/2024 12:06:16 02/27/20 24 02/28/2024 CBC WITH DIFFE RENTI AL/PL ATELE T immature cells [employer]GICAL [employer]ACE [employer]ER Not Available [facility] ([facility]) [address] [place], [address], 02/28/2024 12:06:16 02/27/20 24 02/28/2024 CBC WITH DIFFE RENTI AL/PL ATELE T neutrophils (absolute) 4.4 x10e3 /uL 1.4-7. 0 Not Available [facility] ([facility]) [address] [place], [address], 02/28/2024 12:06:16 02/27/20 24 02/28/2024 CBC WITH DIFFE RENTI AL/PL ATELE T lymphs (absolute) 4.2 x10e3 /uL 0.7-3. 1 above high normal Not Available [facility] ([facility]) [address] [place], [address], 02/28/2024 12:06:16 02/27/20 24 02/28/2024 CBC WITH DIFFE RENTI AL/PL ATELE T monocytes(ab solute) 0.7 x10e3 /uL 0.1-0. 9 Not Available [facility] ([facility]) [address] [place], [address], 02/28/2024 12:06:16 02/27/20 24 02/28/2024 CBC WITH DIFFE RENTI AL/PL ATELE T eos (absolute) 0.1 x10e3 /uL 0.0-0. 4 Not Available [facility] ([facility]) [address] [facility], [place], [address], 02/28/2024 12:06:16 02/27/20 24 02/28/2024 CBC WITH DIFFE RENTI AL/PL ATELE T baso (absolute) 0.0 x10e3 /uL 0.0-0. 2 Not Available [facility] ([facility]) [address] [facility], [place], [address], 02/28/2024 12:06:16 02/27/20 24 02/28/2024 CBC WITH DIFFE RENTI AL/PL ATELE T immature granulocytes 0 % not estab. Not Available [facility] ([facility]) [address] [facility], [place], [address], 02/28/2024 12:06:16 02/27/20 24 02/28/2024 CBC WITH DIFFE RENTI AL/PL ATELE T immature grans (abs) 0.0 x10e3 /uL 0.0-0. 1 Not Available [facility] ([facility]) [address] [facility], [place], [address], 02/28/2024 12:06:16 02/27/20 24 02/28/2024 CBC WITH DIFFE RENTI AL/PL ATELE T NRBC [employer]ER Not Available [facility] ([facility]) [address] [facility], [place], [address], 02/28/2024 12:06:16 02/27/20 24 02/28/2024 CBC WITH DIFFE RENTI AL/PL ATELE T hematology comments: SURGICAL [employer]ACE [employer]KER Not Available [facility] ([facility]) [address] [facility], [place], [address], 02/28/2024 12:06:16 02/27/20 24 02/28/2024 BASIC METAB OLIC PANEL (8) glucose 151 mg/dL 70-99 above high normal Not Available [facility] ([facility]) [address] [facility] [place], [address], 02/28/2024 12:06:17 02/27/20 24 02/28/2024 BASIC METAB OLIC PANEL (8) BUN 6 mg/dL 6-24 Not Available [facility] ([facility]) [address] [facility] [place], [address], 02/28/2024 12:06:17 02/27/20 24 02/28/2024 BASIC METAB OLIC PANEL (8) creatinine 0.51 mg/dL 0.57-1 .00 below low normal Not Available [facility] ([facility]) [address] [facility] [place], [address], 02/28/2024 12:06:17 02/27/20 24 02/28/2024 BASIC METAB OLIC PANEL (8) eGFR 114 mL/mi n/1.7 3 >59 Not Available [facility] ([facility]) [address] [facility] [place], [address], 02/28/2024 12:06:17 02/27/20 24 02/28/2024 BASIC METAB OLIC PANEL (8) BUN/creatini ne ratio 12 9-23 Not Available [facility] ([facility]) [address] [place], [address], 02/28/2024 12:06:17 02/27/20 24 02/28/2024 BASIC METAB OLIC PANEL (8) sodium 141 mmol/ L 134-14 4 Not Available [facility] ([facility]) [address] [place], [address], 02/28/2024 12:06:17 02/27/20 24 02/28/2024 BASIC METAB OLIC PANEL (8) potassium 4.6 mmol/ L 3.5-5. 2 Not Available [facility] ([facility]) [address] [facility] [place], [address], 02/28/2024 12:06:17 02/27/20 24 02/28/2024 BASIC METAB OLIC PANEL (8) chloride 98 mmol/ L 96-106 Not Available [facility] ([facility]) [address] [facility] [place], [address], 02/28/2024 12:06:17 02/27/20 24 02/28/2024 BASIC METAB OLIC PANEL (8) carbon dioxide, total 31 mmol/ L 20-29 above high normal Not Available [facility] ([facility]) [address] [facility] [place], [address], 02/28/2024 12:06:17 02/27/20 24 02/28/2024 BASIC METAB OLIC PANEL (8) calcium 9.8 mg/dL 8.7-10 .2 Not Available [facility] ([facility]) [address] [facility] [place], [address], 02/28/2024 12:06:17 02/27/20 24 02/28/2024 LIPID PANEL cholesterol, total 178 mg/dL 100-19 9 Not Available [facility] ([facility]) [address] [facility], [place], [address], 02/28/2024 12:06:18 02/27/20 24 02/28/2024 LIPID PANEL triglyceride s 116 mg/dL 0-149 Not Available [facility] ([facility]) [address] [facility] [place], [address], 02/28/2024 12:06:18 02/27/20 24 02/28/2024 LIPID PANEL HDL cholesterol 96 mg/dL >39 Not Available [facility] ([facility]) [address] [facility] [place], [address], 02/28/2024 12:06:18 02/27/20 24 02/28/2024 LIPID PANEL VLDL cholesterol luke 20 mg/dL 5-40 Not Available [facility] ([facility]) [address] [facility], [place], [address], 02/28/2024 12:06:18 02/27/20 24 02/28/2024 LIPID PANEL LDL chol calc (nih) 62 mg/dL 0-99 Not Available [facility] ([facility]) [address] [facility], [place], [address], 02/28/2024 12:06:18 02/27/20 24 02/28/2024 LIPID PANEL comment: SURGICAL BRACE [employer]KER Not Available [facility] ([facility]) [address] [facility], [place], [address], 02/28/2024 12:06:18 02/27/20 24 02/28/2024 LDL PETE STERO L (DIRE CT) LDL chol. (direct) 65 mg/dL 0-99 Not Available [facility] ([facility]) [address] [facility], [place], [address], 02/28/2024 12:06:19 02/27/20 24 02/28/2024 ALBUM IN, RANDO M URINE albumin, urine 13.2 ug/mL not estab. Not Available [facility] ([facility]) [address] [facility], [place], [address], 02/28/2024 12:06:20 02/27/20 24 02/28/2024 TSH RFX ON ABNOR MAL TO FREE T4 TSH 1.110 uIU/m L 0.450- 4.500 Not Available [facility] ([facility]) [address] [place], [address], 02/28/2024 12:06:20 02/27/20 24 02/27/2024 hemog lobin A1C, finge rstic k A1C 8.2 % 4-6 high Not Available In-Office Order Internal Use Only DO Not Attach Compendium DO Not Attach Compendium, Do Not Delete/merge, [id number] 02/27/2024 14:30:40 Result Notes None recorded. Problems Name Problem SNOMED Code Status Onset Date Resolution Date Notes Provider Name and Address Organization Details Recorded Time Allergic rhinitis 86160000 Active Scooter Amador MD [address] [address], [place], [address] , [facility] 5 17:55:35 Type 2 diabetes mellitus without complica tion 190039049 Completed 07/06/2017 Deja Murphy PA-C [address] [address], [place], [address] , [facility] 7 13:54:58 Malaise and fatigue 528349471 Completed 05/24/2017 Xi rodriguez, [facility] 7 09:53:48 Pure hypercho lesterol emia 461908790 Completed 10/31/2016 Scooter Amador MD [address] [address], [place], [address] , [facility] 7 14:03:55 Schizoph yanique 33403698 Active Stable on meds. Followed by psych Scooter Amador MD [address] [address], [place], [address] , [facility] 6 13:25:02 Tobacco dependen ce syndrome 68822181 Active Scooter Amador MD [address] [address], [place], [address] , [facility] 6 15:15:56 Type 2 diabetes mellitus 96240533 Completed 01/28/2015 Deja Murphy PA-C [address] [address], [place], [address] , [facility] 7 13:55:02 Cough 69016394 Completed 05/24/2017 Xi rodriguez, [facility] 7 09:53:54 Nasal congesti on 13715953 Completed 05/24/2017 Xi rodriguez, [facility] 7 09:53:58 Type 2 diabetes mellitus 05439238 Completed 07/06/2017 Deja Murphy PA-C [address] [facility] [address], [place], [address] , [facility] 7 13:55:02 Gynecolo gic examinat ion Active Scooter Amador MD [address] [facility] [address], [place], [address] , [facility] 5 06:59:59 Chest pain 87751921 Completed 05/24/2017 Xi rodriguez, [facility] 7 09:53:51 Urinary incontin ence 657786561 Completed 200704/14/2014 RESOLVED DATE: 04/23/20 08; RECORDED 04/23/20 08 10:15AM BY SCOOTER SILVA MD, ANNOTATI ON/ADDEN DUM Not Available [facility] 4 14:17:47 Urinary incontin ence 583354796 Completed 200705/04/2014 RESOLVED DATE: 04/23/20 08; RECORDED 04/23/20 08 10:15AM BY SCOOTER SILVA MD, ANNOTATI ON/ADDEN DUM Not Available [facility] 4 06:38:56 Cough 10753769 Completed 200704/14/2014 DATE: 08/06/20 08; IMPRESSI ON: W/ WHEEZING .; RECORDED 05/01/20 12 9:48AM BY KATY CATALAN I, ANNOTATI ON/ADDEN DUM Xi rodriguez, [facility] 7 09:53:54 Administ ration of bacteria l and viral vaccine Completed 200704/14/2014 RECORDED 08/06/20 08 2:05PM BY GM SEAMAN, OFFICE VISIT Not Available [facility] 4 14:17:46 Cough 70371828 Completed 200705/04/2014 DATE: 08/06/20 08; IMPRESSI ON: W/ WHEEZING .; RECORDED 05/01/20 12 9:48AM BY KATY CATALAN I, SIXTOATI ON/ADDEN DUM [facility] 7 09:[facility]:54 Administ ration of bacteria l and viral vaccine Completed 200705/04/2014 RECORDED 08/06/20 08 2:05PM BY GM SEAMAN, OFFICE VISIT Not Available [facility] 4 06:38:56 Acute sinusiti s 95992640 Completed 200804/14/2014 RECORDED 01/13/20 09 10:58AM BY MIRYAM CELIS MA, ANNOTATI ON/ADDEN DUM Not Available [facility] 4 14:17:44 Eruption 390363022 Completed 200804/14/2014 RECORDED 01/13/20 09 10:58AM BY MIRYAM CELIS MA, ANNOTATI ON/ADDEN DUM Not Available [facility] 4 14:17:46 Acute sinusiti s 44204917 Completed 200805/04/2014 RECORDED 01/13/20 09 10:58AM BY MIRYAM CELIS MA, ANNOTATI ON/ADDEN DUM Not Available [facility] 4 06:38:55 Eruption 307166429 Completed 200805/04/2014 RECORDED 01/13/20 09 10:58AM BY MIRYAM CELIS MA, ANNOTATI ON/ADDEN DUM Not Available [facility] 4 06:38:56 Trichomo nal vulvovag initis 35021084 Completed 201004/14/2014 DATE: 03/02/20 11; RECORDED 05/01/20 12 9:48AM BY SIXTO GALVEZATI ON/ADDEN DUM Not Available [facility] 4 14:17:46 Trichomo nal vulvovag initis 66880232 Completed 201005/04/2014 DATE: 03/02/20 11; RECORDED 05/01/20 12 9:48AM BY SIXTO GALVEZATI ON/ADDEN DUM Not Available [facility] 4 06:38:56 Influenz a vaccine needed 46160612219 06 Completed 201004/14/2014 DATE: 06/09/20 11; RECORDED 05/01/20 12 9:48AM BY KATY CATALAN I ANNOTATI ON/ADDEN DUM Not Available [facility] 4 14:17:45 Influenz a vaccine needed 72937186508 06 Completed 201005/04/2014 DATE: 06/09/20 11; RECORDED 05/01/20 12 9:48AM BY SIXTO GALVEZATI ON/ADDEN DUM Not Available [facility] 4 06:38:55 Abdomina l pain 78398108 Completed 201104/14/2014 IMPRESSI ON: PT WITH INTERMIT [...] GALVEZATI ON/ADDEN DUM Not Available [facility] 4 14:17:44 Dizzines s and giddines s 298594040 Completed 201104/14/2014 RECORDED 05/01/20 12 9:48AM BY ANTHONY GALVEZ ON/ADDEN DUM Not Available [facility] 4 14:17:45 Dysmenor seng 283449561 Completed 201104/14/2014 RECORDED 05/01/20 12 9:48AM BY SIXTO GALVEZATI ON/ADDEN DUM Not Available [facility] 4 14:17:45 Respirat ory finding Completed 201104/14/2014 RECORDED 05/01/20 12 9:48AM BY SIXTO GALVEZATI ON/ADDEN DUM Not Available [facility] 4 14:17:45 Blood chemistr y outside referenc e range 309450000 Completed 201104/14/2014 RECORDED 05/01/20 12 9:48AM BY SIXTO GALVEZATI ON/ADDEN DUM Not Available [facility] 4 14:17:45 Disorder of hair AND/OR hair follicle Completed 201104/14/2014 RECORDED 05/01/20 12 9:48AM BY SIXTO GALVEZATI ON/ADDEN DUM Not Available [facility] 4 14:17:45 Well child 136751657 Completed 201104/14/2014 RECORDED 05/01/20 12 9:48AM BY SIXTO GALVEZATI ON/ADDEN DUM Not Available [facility] 4 14:17:45 Onychomy cosis due to dermatop hyte 688892158 Completed 201104/14/2014 RECORDED 05/01/20 12 9:48AM BY ANTHONY GALVEZ ON/ADDEN DUM Not Available [facility] 4 14:17:46 Knee pain Completed 201104/14/2014 RECORDED 05/01/20 12 9:48AM BY SIXTO GALVEZATI ON/ADDEN DUM Not Available [facility] 4 14:17:46 Posterio r rhinorrh ea 79734585 Completed 201104/14/2014 RECORDED 05/01/20 12 9:48AM BY ANTHONY GALVEZ ON/ADDEN DUM Not Available [facility] 4 14:17:46 Procedur e refused Completed 201104/14/2014 RECORDED 05/01/20 12 9:48AM BY SIXTO GALVEZATI ON/ADDEN DUM Not Available [facility] 4 14:17:46 Speciali zed medical examinat ion Completed 201104/14/2014 RECORDED 05/01/20 12 9:48AM BY ANTHONY GALVEZ ON/ADDEN DUM Not Available [facility] 4 14:17:46 Screenin g for malignan t neoplasm of cervix Completed 201104/14/2014 RECORDED 05/01/20 12 9:48AM BY KATY CATALAN I ANNOTATI ON/ADDEN DUM [facility] Available [facility] 4 14:17:46 Chronic sinusiti s 24604930 Completed 201104/14/2014 RECORDED 05/01/20 12 9:48AM BY KATY CATALAN I ANNOTATI ON/ADDEN DUM Not Available [facility] 4 14:17:46 Abdomina l pain 88406348 Completed 201105/04/2014 IMPRESSI ON: PT WITH INTERMIT [...] 4 06:38:55 Dizzines s and giddines s 168012181 Completed 201105/04/2014 RECORDED 05/01/20 12 9:48AM BY SIXTO GALVEZATI ON/ADDEN DUM Not Available [facility] 4 06:38:55 Dysmenor seng 603240287 Completed 201105/04/2014 RECORDED 05/01/20 12 9:48AM BY SIXTO GALVEZATI ON/ADDEN DUM Not Available [facility] 4 06:38:55 Respirat ory finding Completed 201105/04/2014 RECORDED 05/01/20 12 9:48AM BY KATY CATALAN I ANNOTATI ON/ADDEN DUM Not Available [facility] 4 06:38:55 Blood chemistr y outside referenc e range 973596392 Completed 201105/04/2014 RECORDED 05/01/20 12 9:48AM BY SIXTO GALVEZATI ON/ADDEN DUM Not Available [facility] 4 06:38:55 Disorder of hair AND/OR hair follicle Completed 201105/04/2014 RECORDED 05/01/20 12 9:48AM BY SIXTO GALVEZATI ON/ADDEN DUM Not Available [facility] 4 06:38:55 Well child 720858635 Completed 201105/04/2014 RECORDED 05/01/20 12 9:48AM BY SIXTO GALVEZATI ON/ADDEN DUM Not Available [facility] 4 06:38:55 Onychomy cosis due to dermatop hyte 084055295 Completed 201105/04/2014 RECORDED 05/01/20 12 9:48AM BY SIXTO GALVEZATI ON/ADDEN DUM Not Available [facility] 4 06:38:56 Knee pain Completed 201105/04/2014 RECORDED 05/01/20 12 9:48AM BY SIXTO GALVEZATI ON/ADDEN DUM Not Available [facility] 4 06:38:56 Posterio r rhinorrh ea 30230623 Completed 201105/04/2014 RECORDED 05/01/20 12 9:48AM BY SIXTO GALVEZATI ON/ADDEN DUM Not Available [facility] 4 06:38:56 Procedur e refused Completed 201105/04/2014 RECORDED 05/01/20 12 9:48AM BY SIXTO GALVEZATI ON/ADDEN DUM Not Available [facility] 4 06:38:56 Speciali zed medical examinat ion Completed 201105/04/2014 RECORDED 05/01/20 12 9:48AM BY SIXTO GALVEZATI ON/ADDEN DUM Not Available [facility] 4 06:38:56 Screenin g for malignan t neoplasm of cervix Completed 201105/04/2014 RECORDED 05/01/20 12 9:48AM BY ANTHONY GALVEZ ON/ADDEN DUM Not Available [facility] 4 06:38:56 Chronic sinusiti s 51567352 Completed 201105/04/2014 RECORDED 05/01/20 12 9:48AM BY ANTHONY GALVEZ ON/ADDEN DUM Not Available [facility] 4 06:38:56 Diarrhea 19678800 Completed 201104/14/2014 IMPRESSI ON: THIS SEEMS LIKE IBS GIVEN HER SX AND THE AMOUNT OF TIME SHE HAS HAD SX. DOUBT INFECTIO US BECAUSE OF THE DURATION . WILL CHECK STOOL STUDIES NEXT VISIT IF STILL SYMPTOMA TIC.; RECORDED 07/08/20 12 11:19AM BY ANTHONY GALVEZ ON/ADDEN DUM Not Available [facility] 4 14:17:45 Irritabl e bowel syndrome 87244398 Completed 201104/14/2014 RECORDED 07/08/20 12 11:19AM BY ANTHONY GALVEZ ON/ADDEN DUM Not Available [facility] 4 14:17:46 Diarrhea 51228337 Completed 201105/04/2014 IMPRESSI ON: THIS SEEMS LIKE IBS GIVEN HER SX AND THE AMOUNT OF TIME SHE HAS HAD SX. DOUBT INFECTIO US BECAUSE OF THE DURATION . WILL CHECK STOOL STUDIES NEXT VISIT IF STILL SYMPTOMA TIC.; RECORDED 07/08/20 12 11:19AM BY ANTHONY GALVEZ ON/ADDEN DUM Not Available [facility] 4 06:38:55 Irritabl e bowel syndrome 65607060 Completed 201105/04/2014 RECORDED 07/08/20 12 11:19AM BY ANTHONY GALVEZ ON/ADDEN DUM Not Available [facility] 4 06:38:56 Primary malignan t neoplasm of uterine cervix 795437371 Completed 201204/14/2014 AGE 17, LASER REMOVAL; RECORDED 10/08/19 13 11:20AM BY ANTHONY GALVEZ ON/ADDEN DUM Not Available [facility] 4 14:17:46 Acute upper respirat ory infectio n [id number] Completed 201204/14/2014 RECORDED 10/08/19 13 11:24AM BY SIXTO GALVEZATI ON/ADDEN DUM Not Available [facility] 4 14:17:47 Wheezing [id number] Completed 201204/14/2014 IMPRESSI ON: NO H/O ASTHMA. SHE WILL CALL IF SHE NEEDS TO USE THE PROAIR DAILY.; RECORDED 10/08/19 13 11:24AM BY SIXTO GALVEZATI ON/ADDEN DUM Not Available [facility] 4 14:17:47 Primary malignan t neoplasm of uterine cervix [id number] Completed 201205/04/2014 AGE 17, LASER REMOVAL; RECORDED 10/08/19 13 11:20AM BY SIXTO GALVEZATI ON/ADDEN DUM Not Available [facility] 4 06:38:56 Acute upper respirat ory infectio n 55311732 Completed 201205/04/2014 RECORDED 10/08/19 13 11:24AM BY SIXTO GALVEZATI ON/ADDEN DUM Not Available [facility] 4 06:38:56 Wheezing 94975581 Completed 201205/04/2014 IMPRESSI ON: NO H/O ASTHMA. SHE WILL CALL IF SHE NEEDS TO USE THE PROAIR DAILY.; RECORDED 10/08/19 13 11:24AM BY SIXTO GALVEZATI ON/ADDEN DUM Not Available [facility] 4 06:38:56 Type 2 diabetes mellitus without complica tion 765340684 Completed 201204/14/2014 IMPRESSI ON: NO CHANGES IN MGMT; CHECK LABS AND ADJUST IF NEEDED.; RECORDED 07/15/20 13 2:53PM BY AINSLEY MONSIVAIS MA, ANNOTATI ON/ADDEN DUM Deja Murphy PA-C [address] [facility] [address], [place], [address] , [facility] 7 13:54:58 Type 2 diabetes mellitus without complica tion 423793328 Completed 201205/04/2014 IMPRESSI ON: NO CHANGES IN MGMT; CHECK LABS AND ADJUST IF NEEDED.; RECORDED 07/15/20 13 2:53PM BY AINSLEY MONSIVAIS MA, ANNOTATI ON/ADDEN DUM Deja Murphy PA-C [address] [facility] [address], [place], [address] , [facility] 7 13:54:58 Screenin g for malignan t neoplasm of breast Completed 201304/14/2014 RECORDED 12/24/19 14 8:19AM BY KATY CATALAN I ANNOTATI ON/ADDEN DUM Not Available [facility] 4 14:17:45 Tobacco dependen ce syndrome 86976486 Completed 201304/14/2014 RECORDED 12/24/19 14 8:19AM BY KATY CATALAN I ANNOTATI ON/ADDEN DUM Not Available [facility] 4 14:17:45 Adult health examinat ion Completed 201304/14/2014 RECORDED 12/24/19 14 8:19AM BY KATY CATALAN I ANNOTATI ON/ADDEN DUM Not Available [facility] 4 14:17:45 Immuniza tion refused Completed 201304/14/2014 RECORDED 12/24/19 14 8:19AM BY SIXTO GALVEZATI ON/ADDEN DUM Not Available [facility] 4 14:17:46 Screenin g for malignan t neoplasm of breast Completed 201305/04/2014 RECORDED 12/24/19 14 8:19AM BY SIXTO GALVEZATI ON/ADDEN DUM Not Available [facility] 4 06:38:55 Tobacco dependen ce syndrome 15783923 Completed 201305/04/2014 RECORDED 12/24/19 14 8:19AM BY KATY CATALAN I ANNOTATI ON/ADDEN DUM Not Available [facility] 4 06:38:55 Adult health examinat ion Completed 201305/04/2014 RECORDED 12/24/19 14 8:19AM BY KATY CATALAN I ANNOTATI ON/ADDEN DUM Not Available [facility] 4 06:38:55 Immuniza tion refused Completed 201305/04/2014 RECORDED 12/24/19 14 8:19AM BY ANTOHNY GALVEZ ON/LYRIC DUM Not Available [facility] 4 06:38:56 Laborato ry procedur e performe d [id number] Completed 201305/26/2014 RECORDED 04/02/20 14 2:51PM BY NATA RIVERS, LAB REQ Scooter Amador MD [address] [facility] [address], [place], [address] , [facility] 4 12:00:02 Chronic obstruct meri pulmonar y disease 51373625 Active 2016 Rubén Murphy PA-C [address] [facility] [address], [place], [address] , [facility] 7 13:22:11 Uncontro lled type 2 diabetes mellitus 860558743 Active 2016 Deja Murphy PA-C [address] [facility] [address], [place], [address] , [facility] 7 13:55:08 Hyperlip idemia 91114614 Active 2020 Scooter Amador MD [address] [facility] [address], [place], [address] , [facility] 1 19:28:56 Problem Notes None recorded. Procedures Surgical History Date Name Laterality Status Provider Name and Address Organization Details Recorded Time 3 Diabetic Foot Exam (Monofilament) completed Scooter Amador MD [address] [address], [place], [address], [facility] 04/24/2023 15:00:38 2 Diabetic Foot Exam (Monofilament) completed Scooter Amador MD [address] [address], [place], [address], [facility] 12/13/2021 14:39:14 1 Diabetic Foot Exam (Monofilament) completed Scooter Amador MD [address] [address], [place], [address], [facility] 02/07/2021 15:13:59 1 Diabetic Foot Exam (Monofilament) completed Scooter Amador MD [address], [address], [facility] 10/15/2020 13:38:53 0 Diabetic Foot Exam (Monofilament) completed Scooter Amador MD [address], [address], [facility] 04/14/2020 17:17:01 9 Diabetic Foot Exam (Monofilament) completed Scooter Amador MD [address], [address], [facility] 03/20/2019 15:31:43 8 Diabetic Foot Exam (Monofilament) completed Scooter Amador MD [address], [address], [facility] 02/28/2018 07:11:43 6 Most Recent Mammogram completed Magda Marcus [facility] 01/07/2016 08:42:52 6 Mammogram Screening completed Magda Marcus [facility] 01/07/2016 08:42:52 5 Date of Last Pap Smear completed Luis Alberto Smith [facility] 03/22/2017 16:18:21 4 Nebulizer tx completed MARIE Pfeiffer [address], [address], [facility] 07/15/2014 14:31:36 Other completed Miryam boone [facility] 07/15/2014 14:13:40 Imaging Results None recorded. Procedure Notes None recorded. Medical Equipment None Reported. Allergies Allergen ID Allergen Name Allergen Category Reaction Reaction Severity Criticality Documentation Date Start Date Code Code System Note Provider Name and Address Organization Details Recorded Time 41455 Actos medicatio n edema moderate Not available 06/29/2021 74158 2 RxNorm Scooter dean MD [address] [facility] [address], [place], [address], [facility] 1 09:25:21 95107 Farxiga medicatio n respirato ry distress Not available Not available 02/25/2025 57162 72 RxNorm Erica Caporale, REDUCTION FURNACE OPERATOR HELPER null, [facility] 5 13:19:33 Medications Name Sig Start Date [...] release 24 hr 1 TABLET DAILY AT [facility] active Not Available Not Available No t [...] completed Seems like it was replaced by [facility] Not Available Not Available Not Available [...] Not Available Not Available Not Available [employer] [place] kit DAILY 07/03 completed RECORDED 07/15/20 13 [...] DateTime 01/22/2025 165.74 cm Janny Zapata MA [facility] 01/22/2025 15:20:54 Date Recorded Body height Body mass index (BMI) Body weight Heart rate Oxygen saturation Oxygen saturation in Arterial blood by Pulse oximetry Body temperature Systolic And Diastolic Provider Name and Address Organization Details Last Updated DateTime 5 165.74 cm 33.6 kg/m2 04873.0 5 g 106 /min 98 % 98 % 97.8 [degF] 124/68 mm[Hg] Erica Olsen LPN [facility] 5 13:16:49 Date Recorded Body height Body mass index (BMI) Body weight Heart rate Oxygen saturation Oxygen saturation in Arterial blood by Pulse oximetry Body temperature Systolic And Diastolic Provider Name and Address Organization Details Last Updated DateTime 4 165.74 cm 34.5 kg/m2 49039.8 1 g 105 /min 95 % 95 % 98 [degF] 143/83 mm[Hg] J[facility] 4 14:37:07 Date Recorded Body height Body mass index (BMI) Body weight Heart rate Oxygen saturation Oxygen saturation in Arterial blood by Pulse oximetry Body temperature Systolic And Diastolic Systolic And Diastolic Provider Name and Address Organization Details Last Updated DateTime 5 165.74 cm 33.4 kg/m2 01616.6 6 g 108 /min 97 % 97 % 97.8 [degF] 145/82 mm[Hg] 124/82 mm[Hg] Chuyita Dubois [facility] 5 13:37:28 Social History Question Answer Notes LastModified by Organizat ion Details LastModified Time Tobacco Smoking Status Current Every Day Smoker Not Available [facility] 07/27/2020 03:36:37 Do You Have An Advance Directive? Yes [id number] Information not available 07/27/2020 Is Blood Transfusion Acceptable In An Emergency? Yes [id number] Information not available 07/27/2020 What Is Your Level Of Caffeine Consumption? Moderate [id number] Information not available 07/27/2020 How Much Tobacco Do You Chew? None [id number] Information not available 07/27/2020 What Type Of Diet Are You Following? DIABETIC [id number] Information not available 07/27/2020 Which Illicit Or Recreational Drugs Have You Used? No [id number] Information not available 07/27/2020 Education 8 Information n ot available 05/26/2014 Are There Any Guns Present In Your Home? No [id number] Information not available 07/27/2020 Hard Of Hearing [...] Or Greater Than 100 Degrees Fahrenheit? No [email or web address] Information not available 04/13/2020 Are You Or Anyone In Your Household A Health Care Provider Or Emergency Responder? No [email or web address] Information not available 04/13/2020 To The Best Of Your Knowledge Have You Been In Close Proximity To Any Individual Who Tested Positive For COVID-19? No [email or web address] Information not available 04/13/2020 Have You Recently Traveled To A COVID-19 High Risk Area Or Gathering In The Last 10 Days? No [email or web address] Information not available 10/14/2020 What Was The Date Of Your Most Recent Tobacco Screening? 01/22/2025 Information not available 01/22/2025 How Many Children Do You Have? 2 [id number] Information not available 07/27/2020 What Is Your Current Pack Years? [email or web address] [id number] Information not available 07/27/2020 Do You Use Protection During Sex? No [id number] Information not available 07/27/2020 Seat Belts Used Routinely Yes Information not available 08/10/2015 Are You Sexually Active? Yes [id number] Information not available 07/27/2020 Smoke Alarm In Home Yes Information not available 08/10/2015 At What Age Did You Start Smoking Tobacco? 17 [id number] Information not available 07/27/2020 Are You Passively Exposed To Smoke? Yes [email or web address] Information no t available 07/15/2020 How Much Tobacco Do You Smoke? 2 PPD Information not available 01/22/2025 General Stress Level High Information not available 05/26/2014 Do You Use Sunscreen Routinely? Yes [id number] Information not available 07/27/2020 How Many Years [...] is your level of alcohol consumption? Occasional [id number] Information not available 07/27/2020 Do you or have you ever used smokeless tobacco? Never used smokeless tobacco [id number] Information not available 07/27/2020 Are you currently employed? No [id number] Information not available 07/27/2020 Are you able to walk independently without assistance or assistive devices? [email or web address] Information not available 12/13/2021 Are you able to care for yourself independently? No [id number] Information not available 07/27/2020 Do you or have you ever used e-cigarettes or vape? Never used electronic cigarettes [id number] Information not available 07/27/2020 What is your exercise level? Occasional [id number] Information not available 07/27/2020 Mental Status None [...] mcg/0.3 mL dose 021 completed GM Vazquez [facility] 06/28/2021 15:21:04 COVID-19, mRNA, LNP-S, PF, 30 mcg/0.3 mL dose 021 completed GM Vazquez [facility] 06/28/2021 15:21:23 Td (adult), 2 Lf tetanus toxoid, preservative free, adsorbed 019 completed Not Available [facility] 10/11/2019 02:21:30 Influenza, split virus, quadrivalent, PF 020 cancelled patient objection GM Richards, [facility] 07/15/2020 14:31:12 Influenza, split virus, trivalent, preservative 008 completed Not Available [facility] 04/07/2014 14:07:42 Tdap 008 completed Not Available [facility] 04/07/2014 14:07:42 Influenza, split virus, trivalent, preservative 010 completed Not Available [facility] 04/07/2014 14:07:42 Influenza, split virus, trivalent, preservative 011 completed Not Available [facility] 04/07/2014 14:07:43 Past Encounters Encounter ID Performer Location Encounter Start Date Encounter Closed Date Diagnosis/Indication Diagnosis SNOMED-CT Code Diagnosis ICD10 Code Diagnosis IMO Codes Diagnosis Note [id number] autoEComm erce [address] [facility] [place] [address] 11/19/2006 00:00:00 [id number] autoEComm erce [address] [facility] [place] [address] 12/10/2006 00:00:00 [id number] autoEComm erce [address] [facility] [place] [address] 02/22/2007 00:00:00 [id number] autoEComm erce [address] [facility] [place] [address] 08/24/2006 00:00:00 [id number] autoEComm erce [address] [facility] [place] [address] 06/22/2006 00:00:00 [id number] autoEComm erce [address] [facility] [place] [address] 06/04/2006 00:00:00 [id number] autoEComm erce [address] [facility] [place] [address] 03/25/2007 00:00:00 [id number] autoEComm erce [address] [facility] [place] [address] 06/05/2007 00:00:00 [id number] autoEComm erce [address] [facility] [place] [address] 10/25/2007 00:00:00 [id number] autoEComm erce [address] [facility] [address] [place] [address] 01/22/2008 00:00:00 [id number] autoEComm erce [address] [facility] [place] [address] 04/23/2008 00:00:00 [id number] autoEComm erce [address] [facility] [place] [address] 08/06/2008 00:00:00 [id number] autoEComm erce [address] [facility] [place] [address] 08/08/2008 00:00:00 [id number] autoEComm erce [address] [facility] [place] [address] 10/09/2008 00:00:00 [id number] autoEComm erce [address] [facility] [place] [address] 12/11/2008 00:00:00 [id number] autoEComm erce [address] [facility] [place] [address] 01/12/2009 00:00:00 [id number] autoEComm erce [address] [facility] [place] [address] 04/26/2009 00:00:00 [id number] autoEComm erce [address] [facility] [place] [address] 07/29/2009 00:00:00 [id number] autoEComm erce [address] [facility] [place] [address] 09/07/2009 00:00:00 [id number] autoEComm erce [address] [place] [address] 02/09/2010 00:00:00 [id number] autoEComm erce [address] [place] [address] 03/11/2010 00:00:00 [id number] autoEComm erce [address] [facility] [address] [place] [address] 05/31/2010 00:00:00 [id number] autoEComm erce [address] [facility] [address] [place] [address] 06/21/2010 00:00:00 [id number] autoEComm erce [address] [facility] [address] [place] [address] 08/24/2010 00:00:00 [id number] autoEComm erce [address] [facility] [place] [address] 09/12/2010 00:00:00 [id number] autoEComm erce [address] [facility] [place] [address] 11/24/2010 00:00:00 [id number] autoEComm erce [address] [facility] [place] [address] 01/20/2011 00:00:00 [id number] autoEComm erce [address] [facility] [place] [address] 03/02/2011 00:00:00 [id number] autoEComm erce [address] [facility] [place] [address] 06/09/2011 00:00:00 [id number] autoEComm erce [address] [facility] [place] [address] 10/03/2011 00:00:00 [id number] autoEComm erce [address] [facility] [place] [address] 02/05/2012 00:00:00 [id number] autoEComm erce [address] [facility] [place] [address] 03/05/2012 00:00:00 [id number] autoEComm erce [address] [place] [place] [address] 05/01/2012 00:00:00 [id number] autoEComm erce [address] [place] [address] 07/08/2012 00:00:00 [id number] autoEComm erce [address] [facility] [address] [place] [address] 10/08/2012 00:00:00 [id number] autoEComm erce [address] [place] [place] [address] 01/09/2013 00:00:00 [id number] autoEComm erce [address] [facility] [place] [address] 07/15/2013 00:00:00 [id number] autoEComm erce [address] [facility] [place] [address] 01/05/2014 00:00:00 [id number] autoEComm erce [address] [facility] [place] [address] 11/09/2009 00:00:00 [id number] autoEComm erce [address] [facility] [place] [address] 04/09/2013 00:00:00 [id number] autoEComm erce [address] [facility] [place] [address] 11/28/2011 00:00:00 [id number] autoEComm erce [address] [facility] [place] [address] 09/15/2011 00:00:00 [id number] autoEComm erce [address] [facility] [place] [address] 07/11/2011 00:00:00 [id number] Scooter Amador MD Main Office [address] [facility] [address] [place] [address] 05/26/2014 11:43:44 05/26/2014 12:22:40 Type 2 diabetes mellitus 40161011 Pure hypercholesterolemia 242287166 Schizophrenia 71002980 Tobacco de pendence syndrome 34415735 [id number] MARIE Pfeiffer Main Office [address] [place] [address] 07/15/2014 13:46:49 07/15/2014 14:50:06 Allergic rhinitis 03600182 Cough 68634414 Cough, congestion , insp/ exp wheezing, hoarse voice, tachycardi a, sat 93% RA. Will treat with prednisone burst and zpak for possible bacterial infection. Also recommend patient use her inhaler 2 puffs every 4 hours as needed for cough/ wheezing. Stay well hydrated, humidifier as needed, rest, tylenol or ibuprofen as needed for pain/ fever. Nasal congestion 98233001 [id number] Scooter Amador MD Main Office [address] [address] [place] [address] 01/27/2015 14:32:48 01/27/2015 15:55:21 Adult health examination 505331200 Administra tion of pneumococcal vaccine 00887791 Type 2 irasema betes mellitus without complication 262789721 will increase her metformin from 500 bid to 1000 bid since her A1C is no longer at goal. Screening for malignant neoplasm of breast 463436122 Pure hypercholesterolemia 172684190 will increase her dose from 20 to 40 mg since her LDL is not at goal. Schizophrenia 50300583 on meds, living in a mcc and followed by psych. [id number] Scooter Amador MD Main Office [address] [address] [place] [address] 05/06/2015 14:03:50 05/06/2015 15:26:34 Type 2 diabetes mellitus 96254012 Pure hypercholesterolemia 989647992 will increase her dose from 20 to 40 mg since her LDL is not at goal. Allergic rhinitis 80944894 continue current mgmt [id number] Scooter Amador MD Main Office [address] [place] [address] [place] [address] 08/10/2015 14:23:33 08/10/2015 15:23:14 Type 2 diabetes mellitus 17842065 E11.9 her A1C has been at goal in the past. She is c/w her meds. Gynecologi c examination 39314278 Z01.411 Screening for malignant neoplasm of breast 932287020 Z12.39 she has never had a mammogram because she has been anxious about going but states that she feels she is now ready. Tobacco de pendence syndrome 64142210 F17.290 we spoke about quitting. She stopped smoking in the past during each of her pregnancie s. [id number] Scooter Amador MD Main Office [address] [address] [place] [address] 11/09/2015 14:31:59 11/09/2015 15:27:25 Type 2 diabetes mellitus 75586196 E11.9 her A1C is at goal in the past. She is c/w her meds. Schizophrenia 82769864 F 20.3 on meds, living in a mcc and followed by psych. Tobacco de pendence syndrome 18766696 F17.290 we spoke about quitting. She stopped smoking in the past during each of her pregnancie s. Pure hypercholesterolemia 596440066 E78.0 we increased her dose from 20 to 40 mg since her LDL was not at goal. Recheck fasting lipid level. Chest pain 39648917 R07. 9 she is at high risk for heart disease because of her smoking and diabetes [id number] Scooter Amador MD Main Office [address] [place] [address] 02/16/2016 12:45:58 02/16/2016 13:25:59 Type 2 diabetes mellitus 48524495 E11.9 her A1C is at goal in the past. She is c/w her meds. Schizophrenia 31908856 F 20.3 on meds, living in a mcc and followed by psych. [id number] Deja Murphy PA-C Main Office [address] [address] [place] [address] 06/30/2016 15:03:47 06/30/2016 15:45:43 Injury of finger 58834022 S69.82XA L big finger injury due to fall. XRAys to r/o fracture. Immobiliza tions with splint, ice several times daily and NSAIDs as directed for 7-10 days. referral to hand specialist . [id number] Deja Murphy PA-C Main Office [address] [place] [address] 09/22/2016 15:06:27 09/22/2016 16:05:08 Cough 11440853 R05 Acute pharyngitis 550437 003 J02.9 Acute sinusitis 99244965 J01.90 Wheezing 46823014 R06.2 [id number] Scooter Amador MD Main Office [address] [address] [place] [address] 10/31/2016 13:40:19 10/31/2016 14:46:59 Adult health examination 393542695 Z00.00 UTD with immunizati ons. Had a PAP done Jul 2015. Type 2 irasema betes mellitus 86462329 E11.9 her A1C is a little above goal. She is c/w her meds. She will try to make some changes and we will f/u in 3 months w/o making any changes in meds right now. We will make an eye appointmen t for her. Schizophrenia 44463707 F 20.3 on meds, living in a mcc and followed by psych. Tobacco de pendence syndrome 97781270 F17.290 we spoke about quitting. She stopped smoking in the past during each of her pregnancie s. Hyperlipidemia 35137510 E78.5 We increased her med at a previous visit and will recheck her fasting lipid level. [id number] Rubén Murphy PA-C Main Office [address] [address] [place] [address] 12/25/2016 11:34:50 12/25/2016 12:20:54 Acute conjunctivitis 30859605 H10.33 Nasal congestion 3323628 0 R09.81 [id number] Scooter Amador MD Main Office [address] [address] [place] [address] 03/06/2017 12:39:50 03/06/2017 13:33:42 Type 2 diabetes mellitus 74441170 E11.9 Her A1C continues to rise as does her weight. We will add januvia to her regimen. Schizophrenia 52545700 F 20.3 on meds, living in a mcc and followed by psych. [id number] Rubén Murphy PA-C Main Office [address] [address] [place] [address] 05/10/2017 15:11:49 05/10/2017 16:27:12 Sore throat 721914820 J02.9 Pneumonia 542069277 J18. 9 Wheezing 16083016 R06.2 is running low on proair - has used it past few days - will renew [id number] Rubén Murphy PA-C Main Office [address] [place] [address] 05/24/2017 09:33:03 05/24/2017 11:17:36 Dyspnea 850677174 R06.00 much improved p pna rx pt [...] gums - it has helped before Pneumonia 894794761 J18. 9 resolved s/p rx Tobacco de pendence syndrome 04700412 F17.200 strongly encouraged tob cessation - she states she will try ankit gums again - this had worked for her in the past Cough 67795865 R05 most likely d/t prolonged tobacco exp. - see below Chronic ob structive pulmonary disease 81895198 J44.9 see above [id number] Scooter Amador MD Main Office [address] [place] [address] 06/06/2017 14:22:12 06/06/2017 16:18:04 Type 2 diabetes mellitus 28321911 E11.9 Since her A1C was rising we did a script for januvia which was not covered by her insurance. We then did a script for actos which she only filled about 2-3 weeks ago. Her A1C has come down slightly so we will not make any changes at this time. Chronic ob structive pulmonary disease 95240772 J44.9 We discussed quitting smoking to help prevent further progressio n. Since she denies SOB and exam is normal we will not start any meds but will monitor her function. 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. Pt. was advised to start exercise activity [...] m. Body mass index 30+ - obesity 860758016 Z68.34 Obesity 630050231 E66.9 [id number] Scooter Amador MD Main Office [address] [address] [place] [address] 09/05/2017 12:48:05 09/05/2017 13:58:41 Uncontrolled type 2 diabetes mellitus 378296512 E11.65 Excellent improvemen t in A1C which is now less than 7.0 again (down to 6.8). She will continue with current mgmt since it is working. Dysuria 40749476 R30.0 No longer with symptoms so will send culture and will not do abx for now. She was advised to drink more fluids. Schizophrenia 48874259 F 18.3 on meds, living on her own with supervisio c[facility] and followed by psych. [id number] Deja Murphy PA-C Main Office [address] [address] [place] [address] 10/23/2017 14:27:22 10/23/2017 15:48:51 Uncontrolled type 2 diabetes mellitus 617694014 E11.65 STable type II Diabetes w/o complicati ons. Continue current meds. Discussed lowering calories even further and increasing exercise activity. Test glucose 1 time per day and bring glucose log to next visit. F/u 3 m. Repeat labs. Upper resp iratory infection 96904889 J06.9 Wheezing 73775965 R06.2 Chronic ob structive pulmonary disease 77125275 J44.9 Body mass index 30+ - obesity 622202664 E66.01 Z68.35 [id number] Scooter Amador MD Main Office [address] [facility] [address] [place] [address] 02/27/2018 13:02:09 02/27/2018 14:22:54 Adult health examination 934671300 Z00.00 UTD with immunizati ons. Had a PAP done Jul 2015 and will return for a PAP Genital warts 990079043 A63.0 Will try topical treatment and if persists will Uncontroll ed type 2 diabetes mellitus 560278201 E11.65 A1C continues to be at goal below 7.0 and is currently at 6.3 . She will continue with current mgmt since it is working. [id number] Scooter Amador MD Main Office [address] [place] [address] 06/06/2018 12:57:48 06/06/2018 13:58:46 Uncontrolled type 2 diabetes mellitus 731992353 E11.65 A1C continues to be at goal below 7.0 and is currently at 6.6. She will continue with current mgmt since it is working. Schizophrenia 08567972 F 18.3 on meds, living on her own with supervisio n and followed by psych. [id number] Scooter Amador MD Main Office [address] [address] [place] [address] 08/22/2018 13:25:23 08/22/2018 14:17:54 Acute pharyngitis 548315605 J02.9 Cough 96938345 R05 She will use robitussin prn. [id number] Scooter Amador MD Main Office [address] [place] [address] 03/20/2019 15:00:36 03/20/2019 15:56:26 Uncontrolled type 2 diabetes mellitus 235019523 E11.65 A1C continues to be at goal below 7.0 and is currently at 6.7. She will continue with current mgmt since it is working. Schizophrenia 58322314 F 18.3 on meds, living on her own with supervis n and followed by psych. Chronic ob structive pulmonary disease 97282966 J44.9 Continues to smoke Requires a tetanus booster 007707963 Z23 [id number] Scooter Amador MD Main Office [address] [address] 06/23/2019 14:34:34 06/23/2019 15:59:51 Adult health examination 555237815 Z00.00 UTD with immunizati ons. Had a PAP done Jul 2015 and will return for a PAP Type 2 irasema betes mellitus without complication 367928117 E11.9 Body mass index 30+ - obesity 203588247 E66.01 Z68.36 Schizophrenia 43684216 F 18.3 on meds, [facility]. [id number] Scooter Amador MD Main Office [address] [address] 04/13/2020 12:37:21 04/13/2020 13:38:09 Uncontrolled type 2 diabetes mellitus 685230970 E11.65 A1C continues to be at goal below 7.0 and is currently at 6.7. She will continue with current mgmt since it is working. Right late ral elbow tendinopathy 3944632749 31175 M77.11 Chronic ob structive pulmonary disease 38641768 J44.9 Continues to smoke Schizophrenia 71109909 F 18.3 on meds, [facility]. Tobacco de pendence syndrome 44345398 F17.290 we spoke about quitting. She stopped smoking in the past during each of her pregnancie s. [id number] Scooter Amador MD Main Office [address] [address] 07/15/2020 14:10:04 07/15/2020 15:21:15 Adult health examination 436437606 Z00.00 UTD with immunizati ons but refuses a flu vaccine. Had a PAP done Jul 2015 and will return for a PAP Needs infl uenza immunization 861867941 Z23 Uncontroll ed type 2 diabetes mellitus 684067286 E11.65 Her diabetes is no longer uncontroll ed; her A1C today is 7.0. She was encouraged to stay with the same mgmt. Schizophrenia 83289558 F 18.3 on meds, living on her own with supervis n and followed by psych. Tobacco de pendence syndrome 38740515 F17.290 we spoke about quitting. She stopped smoking in the past during each of her pregnancie s. Body mass index 30+ - obesity 852007813 E66.01 [id number] Scooter Amador MD Main Office [address] [facility] [address] [place] [address] 10/14/2020 13:41:53 10/14/2020 14:42:06 Uncontrolled type 2 diabetes mellitus 606540476 E11.65 Her A1C increased form 7.0 to 7.7. We will increase her actos from 15 to 30 mg and see her back in 3 months. Hyperlipidemia 22353588 E78.5 We increased her med at a previous visit and LDL is now at goal. Schizophrenia 40426400 F 18.3 on meds, living on her own with [facility] and followed by psych. Chronic ob structive pulmonary disease 41051784 J44.9 Continues to smoke [id number] Scooter Amador MD Main Office [address] [facility] [address] [place] [address] 02/07/2021 14:23:01 02/07/2021 15:22:47 Uncontrolled type 2 diabetes mellitus 845006141 E11.65 Her A1C continues to increase despite being c/w her meds. Will increase her actos from 30 to 45 mg and she will continue metformin trajenta. Chronic ob structive pulmonary disease 08887356 J44.9 Continues to smoke Hyperlipidemia 34292675 E78.5 LDL at goal. Will check fasting lipid level. Schizophrenia 10735924 F 18.3 on meds, [facility] and [facility]. [id number] Scooter Amador MD [facility] [address] [facility] [address] [place] [address] 03/17/2021 13:57:16 03/18/2021 14:44:54 Uncontrolled type 2 diabetes mellitus 947910366 E11.65 She has been having SE's since [...] in 2 months. Tobacco de pendence syndrome 31848921 F17.290 we spoke about quitting. She stopped smoking in the past during each of her pregnancie s. Anxiety 15063899 F41.9 It is doubtful that this is secondary to her actos. She will speak to her mental health provider about this. [id number] Scooter Amador MD Main Office [address] [place] [address] 06/28/2021 14:51:15 06/28/2021 15:56:27 Uncontrolled type 2 diabetes mellitus 670985749 E11.65 She was not able to tolerate the actos because of ankle swelling, nausea and bloating. She stopped this a couple of months ago and her SE's resolved. Unfortunat sheila her A1C increased from 8.1 to 9.3. We will add another po med and she understand s that she may need meds that require injections in the future. Schizophrenia 88445336 F 18.3 on meds, living on her own with supervisio n and followed by psych. Hyperlipidemia 82951241 E78.5 LDL at goal. Will check fasting lipid level next appointmen tMaricruz [id number] Scooter Amador MD Main Office [address] [place] [address] 08/16/2021 13:29:39 08/16/2021 14:38:24 Tinea cruris 133923958 B35.6 Candidiasis of vagina 72 629555 B37.3 [id number] Scooter Amador MD Main Office [address] [place] [address] 12/13/2021 12:41:16 12/13/2021 13:49:23 Adult health examination 672190219 Z00.00 UTD with immunizati ons. Had a PAP done Jul 2015 and will return for a PAP. Does not want to do one today. Uncontroll ed type 2 diabetes mellitus 705569690 E11.65 She was not able to tolerate the actos because of ankle swelling, nausea and bloating. She stopped this a couple of months ago and her SE's resolved. Unfortunat sheila her A1C increased from 8.1 to 9.3. We will add another po med and she understand s that she may need meds that require injections in the future. Chronic ob structive pulmonary disease 02351030 J44.9 Continues to smoke Hyperlipidemia 26946702 E78.5 LDL at goal. Will check fasting lipid level. Schizophrenia 70176196 F 18.3 on meds, living on her own with supervis n and followed by psych. Body mass index 30+ - obesity 850569664 E66.01 Z68.33 [id number] Scooter Amador MD Main Office [address] [facility] [address] [place] [address] 08/29/2022 13:05:29 08/29/2022 14:30:53 Uncontrolled type 2 diabetes mellitus 011264593 E11.65 She was not able to tolerate the actos because of ankle swelling, nausea and bloating. She stopped this and her SE's resolved. . We added jardiance and tradjenta and her A1C came down from 9.3 to 7.6. She will work on lifestyle changes to bring this down more. Allergic rhinitis 301934 04 J30.9 continue current mgmt Schizophrenia 72914971 F [age] on meds, living on her own with [facility] and followed by psych. [id number] Scooter Amador MD Main Office [address] [facility] [address] [place] [address] 04/24/2023 14:19:20 04/24/2023 15:26:54 Uncontrolled type 2 diabetes mellitus 116598935 E11.65 She was not able to tolerate the actos because of ankle swelling, nausea and bloating. She stopped this and her SE's resolved. . We added jardiance and tradjenta and her A1C came down from 9.3 to 7.6. She checks her sugars and says that they are generally in the low 100's. Schizophrenia 31224053 F [age] on meds, living on her own with supervisio n and followed by psych. Allergic rhinitis 946332 04 J30.9 continue current mgmt Chronic ob structive pulmonary disease 87707843 J44.9 Continues to smoke [id number] Scooter Amador MD Main Office [address] [facility] [address] [place] [address] 08/07/2023 13:23:20 08/07/2023 14:27:58 Uncontrolled type 2 diabetes mellitus 420313252 E11.65 She was not able to tolerate the actos because of ankle swelling, nausea and bloating. She stopped this and her SE's resolved. . We added jardiance and tradjenta and her A1C came down from 9.3 to 7.2. She checks her sugars and says that they are generally in the low 100's. Adult [facility] th examination 217534576 Z00.00 UTD with immunizati ons. Had a PAP done Jul 2015 and will return for a PAP. Does not want to do one today. Screening for malignant neoplasm of colon 885545167 Z12.11 Tobacco de pendence syndrome 26132623 F17.290 we spoke about quitting. She stopped smoking in the past during each of her pregnancie s. Chronic ob structive pulmonary disease 84076937 J44.9 Continues to smoke Hyperlipidemia 38845990 E78.5 LDL at goal. Will check fasting lipid level. Schizophrenia 69229859 F 18.3 on meds, living on her own with supervisio n and followed by psych. Has some mild depression which is followed by her psych provider. [id number] Scooter Amador MD Main Office [address] [facility] [address] [place] [address] 11/23/2023 11:21:25 11/23/2023 12:21:38 Uncontrolled type 2 diabetes mellitus 932029148 E11.65 A1C increased from 7.2 to 7.3, Would like to continue on metformin and tradjenta instead of adding med, will stay consistent with exercise and trying to eat better. Does exercises in 3 sets to get through during the day. Tradjenta refilled. Schizophrenia 42723782 F 18.3 on meds, living on her own with [facility] and followed by psych. Allergic rhinitis 903060 04 J30.9 continue current mgmt Chronic ob structive pulmonary disease 60370213 J44.9 Continues to smoke [id number] Scooter Amador MD Main Office [address] [place] [address] 02/27/2024 14:25:32 02/27/2024 15:27:48 Uncontrolled type 2 diabetes mellitus 571686223 E11.65 She was not able to tolerate the Actos because of ankle swelling, nausea and bloating. She stopped this and her SE's resolved. . We added jardiance and tradjenta and her A1C came down from 9.3 to 7.2. But the jardiance is no longer on formulary. She also stopped the tradjenta for unclear reasons but will restart it. Fatigue 14721511 R53.83 Hyperlipidemia 04585510 E78.5 Last LDL at goal. Will check fasting lipid level. Schizophrenia 69086926 F 18.3 on meds, living on her own with [facility] and followed by psych. Has some mild depression which is followed by her psych provider. [id number] Scooter Amador MD Main Office [address] [facility] [address] [place] [address] 01/20/2025 15:07:20 01/20/2025 15:45:35 [id number] Scooter Amador MD [facility] [address] [address] 01/22/2025 13:02:53 01/23/2025 14:51:58 Allergic rhinitis 03115016 J30.9 continue current mgmt Chronic ob structive pulmonary disease 73523153 J44.9 She has been trying to quit smoking and currently smokes less than 5 cigarettes a day. She understand s that she needs to stop completely since increasing the number of daily cigarettes will likely increase with time. She is not currently using any inhalers. As an inpatient she was given oxygen but was not discharged with it. Schizophrenia 34670277 F 18.3 on meds, living on her [facility] and followed by psych. Has some mild depression which is followed by her psych provider. Tobacco de pendence syndrome 67727906 F17.290 She has cut back significan tly and knows that she needs to quit totally because of her COPD dx. Community acquired pneumonia 772374104 J15.9 [id number] She was septic and was admitted to [facility]. She was discharged to complete a course of abx and steroids. [id number] Scooter Amador MD Main Office [address] [facility] [address] [place] [address] 02/25/2025 13:01:35 02/25/2025 13:42:37 Preseptal cellulitis 047837162 L03.213 25658695 x3 days of swelling to the lower and upper lid, erythemato us-denies of any vision changes or pain to the orbital, no pain with EOM-no known trauma to the area-will provide augmentin course and discussed conservati ve measuremen ts Vesicular eczema 8287682 08 L30.1 872 left hand; 3rd and 4th digit- medial aspect-chris l provide topical steroid cream-disc ussed conservati ve measuremen ts [id number] Scooter Amador MD Main Office [address] [facility] [address] [place] [address] 06/11/2025 13:06:00 06/11/2025 14:03:22 Chronic vertigo 6680224041 9105 R42 36758672 Chronic ot itis externa 36483893 H60.312 [id number] Uncontroll ed type 2 diabetes mellitus 653445594 E11.65 She was not able to tolerate the Actos because of ankle swelling, nausea and bloating. She stopped this and her SE's resolved. . We added jardiance and tradjenta and her A1C came down from 9.3 to 7.2. But the jardiance is no longer on formulary. She also stopped the tradjenta for unclear reasons but will restart it. Hyperlipidemia 64268354 E78.5 Last LDL at goal. Will check fasting lipid level. Health Concerns Section Related Observation LastModified by Organization Detai ls LastModified Time None Recorded Concern Status LastModified by Organization Details LastModified Time None Recorded Advance Directives Directive Y: Payers Insurance Date Sequence Insurance Name Policy Number Policy Chopra Covered Member ID Chopra Member ID Guarantor Name 01/21/2025 3 [employer] (MEDICARE SUPPLEMENT) Aura Hood [id number] Aura Hood 06/11/2025 1 [place] [employer] Aura Hood [id number] Aura Hood 06/24/2025 2 [place] [facility] Aura Hood [id number] Aura Hood Notes Date Note Type Note [...] been a problem recently. Scooter Amador MD [address] [address], [place], [address], [facility] 02/27/2024 18:37:36 5 text/html Hospitalization Contact RecordReported by PatientHospitalization Contact RecordFor follow up, patient [facility],admit date: (please enter in format 'mm/dd/yyyy') (01/13/2025),date [...] old female with several comorbidities presented to [facility] with Shortness of breath associated with [...] 5 days of antibiotic and steriod regimen. Nursing Department Chairperson updated medication list as noted. Attempted several times to complete ELZBIETA call cell number is out of services , called emergency contact number no answer, unable to leave message. Attempted to look in [facility] for any additional contact infomation no update information was noted . Patient is scheduled to follow up with provider for DM on 02/04/2025 . Scooter Amador MD [address] [address], [place], [address], [facility] 01/20/2025 15:45:32 5 text/html Hospitalization Contact RecordReported by PatientHospitalization Contact RecordFor follow up, patient reportshospital: [facility],admit date: (please enter in format 'mm/dd/yyyy') (01/13/2025),date [...] old female with several comorbidities presented to [facility] with shortness of breath associated [...] on 02/04/2025 . Scooter Amador MD [address] [address], [place], [address], [facility] 01/24/2025 11:02:08 5 text/html ROS as noted in the HPI Aura is a 49yr old F who presents for eye redness. Endorses x3 days of swelling and redness to the upper and lower lids and surround skin of the right eye. Denies of any changes in vision or pain with EOM. LESLIE TUCKER [address] [facility] [address], [place], [address], [facility] 02/25/2025 13:46:31 5 text/html [...] more than a year. Scooter Amador MD [address] [address], [place], [address], [facility] 06/11/2025 18:08:43 OBGyn Episode No OBEpisode recorded.
[2025-07-24 18:33] LABS: Clozapine (Clozaril) 100 mcg/L
== END 2025-07-21 14:34 | disposition home or self-care (01) ==
LOC: HO.LABR 14:33
PROVIDERS: PCP Internal Medicine
DX: Z79.899 Other long term (current) drug therapy (principal)
CPT/HCPCS: 36415; 80159; 85025

== ENCOUNTER 2025-08-18 15:28 | Outpatient (REF) | payer MEDICARE, MEDICAID, SELFPAY ==
[2025-08-18 15:58] LABS: MANUAL DIFF FLAG NO
[2025-08-18 17:17] LABS: Hematocrit 47.1 % (37.0-47.0); Hemoglobin 15.7 g/dl (12.0-16.0); Imm Gran Abs Auto 0.05 X10*3/uL (0.00-0.03); Imm Gran Pct Auto 0.5 % (0.0-0.4); Lymphocytes Absolute Auto 4.6 X10*3/uL (1.2-4.9); Mean Corpuscular HGB Conc 33.3 g/dl (31.0-35.0); Mean Corpuscular Hemoglobin 29.8 pg (27.0-33.0); Mean Corpuscular Volume 89.5 fL (80.0-98.0); NRBC Abs Auto 0.000 X10*3/uL (0.0-0.012); NRBC Pct Auto 0.0 /100WBC (0.0-0.2); Platelet Count 198 X10*3/uL (160-400); Red Blood Count 5.26 X10*6/uL (4.20-5.50); White Blood Count 9.6 X10*3/uL (4.8-10.8)
--- OUTSIDE RECORDS SUMMARY | 2025-08-18 19:03 | XMS_ITS | Data Portability ---
Author Organization [facility], Main Office Address [address] [place] [address] Care Team Providers Care Scale Installer Name Role Phone SCOOTER AMADOR Primary Care Provider VIVI COON Psychologist CIERA ROCKWELL Referring Provider [phone] Assessment Encounter Date Assessment Date Assessment LastModified by Organization Details LastModified Time 01/22/2025 01/22/2025 This service was provided using telemedicine. Patient consented to telephone visit Patient was located at home in the [facility]. Provider was located in the [...] Go To The Location Of Their Choice, [id number] 06/11/2025 13:59:26 CMP, serum or plasma 2024 [...] 2024 025 OMAR [facility], [address], [place], [address], 06/11/2025 13:59:27 LDL, direct , serum 2024 025 OMAR [facility], [address], [place], [address], 06/11/2025 13:59:27 hemogl obin A1C, finger stick 2023 024 [email or web address] In-Office Order, Internal Use Only DO Not Attach Compendium DO Not Attach Compendium, Do Not Delete/merge, [id number] 02/27/2024 15:14:28 microa lbumin , urine 2023 024 OAMR [facility] (Centralized Electronic Ordering - All Locations), Patient Can Go To The Location Of Their Choice, 02/28/2024 12:06:20 LDL, direct , serum 2023 024 OMAR [facility], [address], [place], [address], 02/28/2024 12:06:19 HDL choles terol, serum 2023 024 [email or web address] [facility] (Centralized Electronic Ordering - All Locations), Patient Can Go To The Location Of Their Choice, 09/25/2024 09:12:13 CBC w/ auto diff 2023 024 OMAR [facility], [address], [place], [address], 02/28/2024 12:06:16 BMP, serum or plasma 2023 024 OMAR [facility], [address], [place], [address], 02/28/2024 12:06:17 TSH, ultra- sensit meri, serum 2023 024 OMAR [facility], [address], [place], [address], 02/28/2024 12:06:21 Referral vestib ular therap y referr al - Chroni c vertig o 2024 025 [facility] [place] [facility] , [address] , [place], [address], 06/11/2025 14:03:22 Procedures None record ed. Surgeries None record ed. Imaging None record ed. Medication Orders neomyc in-vinicio ymyxin -hydro amanuel 3.5 mg-10, 000 unit/m L-1 % ear drops, susp 2024 025 [id number], [address], [place], [id number], 06/11/2025 13:57:14 amoxic illin 875 mg-pot assium clavul anate 125 mg tablet 2024 025 [facility], [address], [place], [phone], 03/11/2025 05:01:49 hydroc ortiso ne 2.5 % topica l cream 2024 025 [facility], [address], [place], [phone], 02/25/2025 13:34:43 Vitami n C 250 mg tablet 2024 025 [facility] #12267, [address], [place], [phone], 01/24/2025 10:37:01 Tradje nta 5 mg tablet 2023 024 [facility] #13286, [address], [place], [id number], 02/27/2024 15:14:32 Patient TargetsNo targets recorded. Patient Instructions Encounter Date Encounter Id Patient Instructions Last Modified By Organization Details Last Modified Time 02/27/2024 [id number] schizophrenia: care instructions [email or web address] Not available 02/27/2024 18:37:24 type 2 diabetes: care instructions [email or web address] Not available 02/27/2024 15:14:26 01/20/2025 [id number] I have reviewed the note and agree with the assessment and plan of care. [email or web address] Not available 01/20/2025 15:45:28 01/22/2025 [id number] deciding about using medicines to quit smoking [...] instructions [email or web address] Not available 01/24/2025 10:58:42 06/11/2025 [id number] type 2 diabetes: care instructions [email or web address] Not [...] x10e3 /uL 3.4-10 .8 Not Available [facility] ([facility]) [address] [facility], [place], [address], 02/28/2024 12:06:16 02/27/20 24 02/28/2024 CBC WITH DIFFE RENTI AL/PL ATELE T RBC 5.03 x10e6 /uL 3.77-5 .28 Not Available [facility] ([facility]) [address] [place], [address], 02/28/2024 12:06:16 02/27/20 24 02/28/2024 CBC WITH DIFFE RENTI AL/PL ATELE T hemoglobin 15.3 g/dL 11.1-1 5.9 Not Available [facility] ([facility]) [address] [facility], [place], [address], 02/28/2024 12:06:16 02/27/20 24 02/28/2024 CBC WITH DIFFE RENTI AL/PL ATELE T hematocrit 46.4 % 34.0-4 6.6 Not Available [facility] ([facility]) [address] [place], [address], 02/28/2024 12:06:16 02/27/20 24 02/28/2024 CBC WITH DIFFE RENTI AL/PL ATELE T MCV 92 fL 79-97 Not Available [facility] ([facility]) [address] [place], [address], 02/28/2024 12:06:16 02/27/20 24 02/28/2024 CBC WITH DIFFE RENTI AL/PL ATELE T MCH 30.4 pg 26.6-3 3.0 Not Available [facility] ([facility]) [address] [place], [address], 02/28/2024 12:06:16 02/27/20 24 02/28/2024 CBC WITH DIFFE RENTI AL/PL ATELE T MCHC 33.0 g/dL 31.5-3 5.7 Not Available [facility] ([facility]) [address] [facility], [place], [address], 02/28/2024 12:06:16 02/27/20 24 02/28/2024 CBC WITH DIFFE RENTI AL/PL ATELE T RDW 13.5 % 11.7-1 5.4 Not Available [facility] ([facility]) [address] [facility], [place], [address], 02/28/2024 12:06:16 02/27/20 24 02/28/2024 CBC WITH DIFFE RENTI AL/PL ATELE T platelets 222 x10e3 /uL 150-45 0 Not Available [facility] ([facility]) [address] [facility], [place], [address], 02/28/2024 12:06:16 02/27/20 24 02/28/2024 CBC WITH DIFFE RENTI AL/PL ATELE T neutrophils 47 % not estab. Not Available [facility] ([facility]) [address] [facility], [place], [address], 02/28/2024 12:06:16 02/27/20 24 02/28/2024 CBC WITH DIFFE RENTI AL/PL ATELE T lymphs 44 % not estab. Not Available [facility] ([facility]) [address] [facility], [place], [address], 02/28/2024 12:06:16 02/27/20 24 02/28/2024 CBC WITH DIFFE RENTI AL/PL ATELE T monocytes 8 % not estab. Not Available [facility] ([facility]) [address] [facility], [place], [address], 02/28/2024 12:06:16 02/27/20 24 02/28/2024 CBC WITH DIFFE RENTI AL/PL ATELE T eos 1 % not estab. Not Available [facility] ([facility]) [address] [place], [address], 02/28/2024 12:06:16 02/27/20 24 02/28/2024 CBC WITH DIFFE RENTI AL/PL ATELE T basos 0 % not estab. Not Available [facility] ([facility]) [address] [facility], [place], [address], 02/28/2024 12:06:16 02/27/20 24 02/28/2024 CBC WITH DIFFE RENTI AL/PL ATELE T immature cells SOCIAL DIRECTOR Not Available [facility] ([facility]) [address] [place], [address], 02/28/2024 12:06:16 02/27/20 24 02/28/2024 CBC WITH DIFFE RENTI AL/PL ATELE T neutrophils (absolute) 4.4 x10e3 /uL 1.4-7. 0 Not Available [facility] ([facility]) [address] [place], [address], 02/28/2024 12:06:16 02/27/20 24 02/28/2024 CBC WITH DIFFE RENTI AL/PL ATELE T lymphs (absolute) 4.2 x10e3 /uL 0.7-3. 1 above high normal Not Available [facility] ([facility]) [address] [place], [address], 02/28/2024 12:06:16 02/27/20 24 02/28/2024 CBC WITH DIFFE RENTI AL/PL ATELE T monocytes(ab solute) 0.7 x10e3 /uL 0.1-0. 9 Not Available [facility] ([facility]) [address] [place], [address], 02/28/2024 12:06:16 02/27/20 24 02/28/2024 CBC WITH DIFFE RENTI AL/PL ATELE T eos (absolute) 0.1 x10e3 /uL 0.0-0. 4 Not Available [facility] ([facility]) [address] [facility], [place], [address], 02/28/2024 12:06:16 02/27/20 24 02/28/2024 CBC WITH DIFFE RENTI AL/PL ATELE T baso (absolute) 0.0 x10e3 /uL 0.0-0. 2 Not Available [facility] ([facility]) [address] [facility], [place], [address], 02/28/2024 12:06:16 02/27/20 24 02/28/2024 CBC WITH DIFFE RENTI AL/PL ATELE T immature granulocytes 0 % not estab. Not Available [facility] ([facility]) [address] [facility], [place], [address], 02/28/2024 12:06:16 02/27/20 24 02/28/2024 CBC WITH DIFFE RENTI AL/PL ATELE T immature grans (abs) 0.0 x10e3 /uL 0.0-0. 1 Not Available [facility] ([facility]) [address] [facility], [place], [address], 02/28/2024 12:06:16 02/27/20 24 02/28/2024 CBC WITH DIFFE RENTI AL/PL ATELE T NRBC SOCIAL DIRECTOR Not Available [facility] ([facility]) [address] [facility], [place], [address], 02/28/2024 12:06:16 02/27/20 24 02/28/2024 CBC WITH DIFFE RENTI AL/PL ATELE T hematology comments: SOCIAL DIRECTOR Not Available [facility] ([facility]) [address] [facility], [place], [address], 02/28/2024 12:06:16 02/27/20 24 02/28/2024 BASIC METAB OLIC PANEL (8) glucose 151 mg/dL 70-99 above high normal Not Available [facility] ([facility]) [address] [facility] [place], [address], 02/28/2024 12:06:17 02/27/20 24 02/28/2024 BASIC METAB OLIC PANEL (8) BUN 6 mg/dL 6-24 Not Available [facility] ([facility]) [address] [facility] [place], [address], 02/28/2024 12:06:17 02/27/20 24 02/28/2024 BASIC METAB OLIC PANEL (8) creatinine 0.51 mg/dL 0.57-1 .00 below low normal Not Available [facility] ([facility]) [address] [facility] [place], [address], 02/28/2024 12:06:17 02/27/20 24 02/28/2024 BASIC METAB OLIC PANEL (8) eGFR 114 mL/mi n/1.7 3 >59 Not Available [facility] ([facility]) [address] [facility] [place], [address], 02/28/2024 12:06:17 02/27/20 24 02/28/2024 BASIC METAB OLIC PANEL (8) BUN/creatini ne ratio 12 9-23 Not Available [facility] ([facility]) [address] [place], [address], 02/28/2024 12:06:17 02/27/20 24 02/28/2024 BASIC METAB OLIC PANEL (8) sodium 141 mmol/ L 134-14 4 Not Available [facility] ([facility]) [address] [place], [address], 02/28/2024 12:06:17 02/27/20 24 02/28/2024 BASIC METAB OLIC PANEL (8) potassium 4.6 mmol/ L 3.5-5. 2 Not Available [facility] ([facility]) [address] [facility] [place], [address], 02/28/2024 12:06:17 02/27/20 24 02/28/2024 BASIC METAB OLIC PANEL (8) chloride 98 mmol/ L 96-106 Not Available [facility] ([facility]) [address] [facility] [place], [address], 02/28/2024 12:06:17 02/27/20 24 02/28/2024 BASIC METAB OLIC PANEL (8) carbon dioxide, total 31 mmol/ L 20-29 above high normal Not Available [facility] ([facility]) [address] [facility] [place], [address], 02/28/2024 12:06:17 02/27/20 24 02/28/2024 BASIC METAB OLIC PANEL (8) calcium 9.8 mg/dL 8.7-10 .2 Not Available [facility] ([facility]) [address] [facility] [place], [address], 02/28/2024 12:06:17 02/27/20 24 02/28/2024 LIPID PANEL cholesterol, total 178 mg/dL 100-19 9 Not Available [facility] ([facility]) [address] [facility], [place], [address], 02/28/2024 12:06:18 02/27/20 24 02/28/2024 LIPID PANEL triglyceride s 116 mg/dL 0-149 Not Available [facility] ([facility]) [address] [facility] [place], [address], 02/28/2024 12:06:18 02/27/20 24 02/28/2024 LIPID PANEL HDL cholesterol 96 mg/dL >39 Not Available [facility] ([facility]) [address] [facility] [place], [address], 02/28/2024 12:06:18 02/27/20 24 02/28/2024 LIPID PANEL VLDL cholesterol luke 20 mg/dL 5-40 Not Available [facility] ([facility]) [address] [facility], [place], [address], 02/28/2024 12:06:18 02/27/20 24 02/28/2024 LIPID PANEL LDL chol calc (nih) 62 mg/dL 0-99 Not Available [facility] ([facility]) [address] [facility], [place], [address], 02/28/2024 12:06:18 02/27/20 24 02/28/2024 LIPID PANEL comment: SOCIAL DIRECTOR Not Available [facility] ([facility]) [address] [facility], [place], [address], 02/28/2024 12:06:18 02/27/20 24 02/28/2024 LDL PETE STERO L (DIRE CT) LDL chol. (direct) 65 mg/dL 0-99 Not Available [facility] ([facility]) [address] [facility], [place], [address], 02/28/2024 12:06:19 02/27/20 24 02/28/2024 ALBUM IN, RANDO M URINE albumin, urine 13.2 ug/mL not estab. Not Available [facility] ([facility]) [address] [facility], [place], [address], 02/28/2024 12:06:20 02/27/20 24 02/28/2024 TSH RFX ON ABNOR MAL TO FREE T4 TSH 1.110 uIU/m L 0.450- 4.500 Not Available [facility] ([facility]) [address] [place], [address], 02/28/2024 12:06:20 02/27/20 24 02/27/2024 hemog lobin A1C, finge rstic k A1C 8.2 % 4-6 high Not Available In-Office Order Internal Use Only DO Not Attach Compendium DO Not Attach Compendium, Do Not Delete/merge, [id number] 02/27/2024 14:30:40 Result Notes None recorded. Problems Name Problem SNOMED Code Status Onset Date Resolution Date Notes Provider Name and Address Organization Details Recorded Time Allergic rhinitis 21701159 Active Scooter Amador MD [address] [address], [place], [address] , [facility] 5 17:55:35 Type 2 diabetes mellitus without complica tion 178559714 Completed 07/06/2017 Deja Murphy PA-C [address] [address], [place], [address] , [facility] 7 13:54:58 Malaise and fatigue 206273865 Completed 05/24/2017 Xi rodriguez, [facility] 7 09:53:48 Pure hypercho lesterol emia 562980666 Completed 10/31/2016 Scooter Amador MD [address] [address], [place], [address] , [facility] 7 14:03:55 Schizoph yanique 34793713 Active Stable on meds. Followed by psych Scooter Amador MD [address] [address], [place], [address] , [facility] 6 13:25:02 Tobacco dependen ce syndrome 03448207 Active Scooter Amador MD [address] [address], [place], [address] , [facility] 6 15:15:56 Type 2 diabetes mellitus 89084318 Completed 01/28/2015 Deja Murphy PA-C [address] [address], [place], [address] , [facility] 7 13:55:02 Cough 66675248 Completed 05/24/2017 Xi rodriguez, [facility] 7 09:53:54 Nasal congesti on 86682071 Completed 05/24/2017 Xi rodriguez, [facility] 7 09:53:58 Type 2 diabetes mellitus 77530832 Completed 07/06/2017 Deja Murphy PA-C [address] [facility] [address], [place], [address] , [facility] 7 13:55:02 Gynecolo gic examinat ion Active Scooter Amador MD [address] [facility] [address], [place], [address] , [facility] 5 06:59:59 Chest pain 26083277 Completed 05/24/2017 Xi rodriguez, [facility] 7 09:53:51 Urinary incontin ence 695873108 Completed 200704/14/2014 RESOLVED DATE: 04/23/20 08; RECORDED 04/23/20 08 10:15AM BY SCOOTER SILVA MD, ANNOTATI ON/ADDEN DUM Not Available [facility] 4 14:17:47 Urinary incontin ence 457874858 Completed 200705/04/2014 RESOLVED DATE: 04/23/20 08; RECORDED 04/23/20 08 10:15AM BY SCOOTER SILVA MD, ANNOTATI ON/ADDEN DUM Not Available [facility] 4 06:38:56 Cough 75433988 Completed 200704/14/2014 DATE: 08/06/20 08; IMPRESSI ON: W/ WHEEZING .; RECORDED 05/01/20 12 9:48AM BY KATY CATALAN I, ANNOTATI ON/ADDEN DUM Xi rodriguez, [facility] 7 09:53:54 Administ ration of bacteria l and viral vaccine Completed 200704/14/2014 RECORDED 08/06/20 08 2:05PM BY GM SEAMAN, OFFICE VISIT Not Available [facility] 4 14:17:46 Cough 86075641 Completed 200705/04/2014 DATE: 08/06/20 08; IMPRESSI ON: W/ WHEEZING .; RECORDED 05/01/20 12 9:48AM BY KATY CATALAN I, SIXTOATI ON/ADDEN DUM [facility] 7 09:53:54 Administ ration of bacteria l and viral vaccine Completed 200705/04/2014 RECORDED 08/06/20 08 2:05PM BY GM SEAMAN, OFFICE VISIT Not Available [facility] 4 06:38:56 Acute sinusiti s 54829064 Completed 200804/14/2014 RECORDED 01/13/20 09 10:58AM BY MIRYAM CELIS MA, ANNOTATI ON/ADDEN DUM Not Available [facility] 4 14:17:44 Eruption 024091152 Completed 200804/14/2014 RECORDED 01/13/20 09 10:58AM BY MIRYAM CELIS MA, ANNOTATI ON/ADDEN DUM Not Available [facility] 4 14:17:46 Acute sinusiti s 23624371 Completed 200805/04/2014 RECORDED 01/13/20 09 10:58AM BY MIRYAM CELIS MA, ANNOTATI ON/ADDEN DUM Not Available [facility] 4 06:38:55 Eruption 064566300 Completed 200805/04/2014 RECORDED 01/13/20 09 10:58AM BY MIRYAM CELIS MA, ANNOTATI ON/ADDEN DUM Not Available [facility] 4 06:38:56 Trichomo nal vulvovag initis 30293947 Completed 201004/14/2014 DATE: 03/02/20 11; RECORDED 05/01/20 12 9:48AM BY SIXTO GALVEZATI ON/ADDEN DUM Not Available [facility] 4 14:17:46 Trichomo nal vulvovag initis 03952369 Completed 201005/04/2014 DATE: 03/02/20 11; RECORDED 05/01/20 12 9:48AM BY SIXTO GALVEZATI ON/ADDEN DUM Not Available [facility] 4 06:38:56 Influenz a vaccine needed 28625469062 06 Completed 201004/14/2014 DATE: 06/09/20 11; RECORDED 05/01/20 12 9:48AM BY KATY CATALAN I ANNOTATI ON/ADDEN DUM Not Available [facility] 4 14:17:45 Influenz a vaccine needed 53352241324 06 Completed 201005/04/2014 DATE: 06/09/20 11; RECORDED 05/01/20 12 9:48AM BY SIXTO GALVEZATI ON/ADDEN DUM Not Available [facility] 4 06:38:55 Abdomina l pain 20817830 Completed 201104/14/2014 IMPRESSI ON: PT WITH INTERMIT [...] DUM Not Available [facility] 4 14:17:44 Dizzines s and giddines s 710566185 Completed 201104/14/2014 RECORDED 05/01/20 12 9:48AM BY ANTHONY GALVEZ ON/ADDEN DUM Not Available [facility] 4 14:17:45 Dysmenor seng 595829237 Completed 201104/14/2014 RECORDED 05/01/20 12 9:48AM BY SIXTO GALVEZATI ON/ADDEN DUM Not Available [facility] 4 14:17:45 Respirat ory finding Completed 201104/14/2014 RECORDED 05/01/20 12 9:48AM BY SIXTO GALVEZATI ON/ADDEN DUM Not Available [facility] 4 14:17:45 Blood chemistr y outside referenc e range 654372085 Completed 201104/14/2014 RECORDED 05/01/20 12 9:48AM BY SIXTO GALVEZATI ON/ADDEN DUM Not Available [facility] 4 14:17:45 Disorder of hair AND/OR hair follicle Completed 201104/14/2014 RECORDED 05/01/20 12 9:48AM BY SIXTO GALVEZATI ON/ADDEN DUM Not Available [facility] 4 14:17:45 Well child 549075867 Completed 201104/14/2014 RECORDED 05/01/20 12 9:48AM BY SIXTO GALVEZATI ON/ADDEN DUM Not Available [facility] 4 14:17:45 Onychomy cosis due to dermatop hyte 937674476 Completed 201104/14/2014 RECORDED 05/01/20 12 9:48AM BY ANTHONY GALVEZ ON/ADDEN DUM Not Available [facility] 4 14:17:46 Knee pain Completed 201104/14/2014 RECORDED 05/01/20 12 9:48AM BY SIXTO GALVEZATI ON/ADDEN DUM Not Available [facility] 4 14:17:46 Posterio r rhinorrh ea 73759102 Completed 201104/14/2014 RECORDED 05/01/20 12 9:48AM BY ANTHONY GALVEZ ON/ADDEN DUM Not Available [facility] 4 14:17:46 Procedur e refused Completed 201104/14/2014 RECORDED 05/01/20 12 9:48AM BY SIXTO GALVEZATI ON/ADDEN DUM Not Available [facility] 4 14:17:46 Speciali zed medical examinat ion Completed 201104/14/2014 RECORDED 05/01/20 12 9:48AM BY ANTHONY GALVEZ ON/ADDEN DUM Not Available [facility] 4 14:17:46 Screenin g for malignan t neoplasm of cervix Completed 201104/14/2014 RECORDED 05/01/20 12 9:48AM BY KATY CATALAN I ANNOTATI ON/ADDEN DUM [facility] Available [facility] 4 14:17:46 Chronic sinusiti s 80295063 Completed 201104/14/2014 RECORDED 05/01/20 12 9:48AM BY KATY CATALAN I ANNOTATI ON/ADDEN DUM Not Available [facility] 4 14:17:46 Abdomina l pain 71737268 Completed 201105/04/2014 IMPRESSI ON: PT WITH INTERMIT [...] GALVEZATI ON/ADDEN DUM Not Available [facility] 4 06:38:55 Dizzines s and giddines s 236202790 Completed 201105/04/2014 RECORDED 05/01/20 12 9:48AM BY SIXTO GALVEZATI ON/ADDEN DUM Not Available [facility] 4 06:38:55 Dysmenor seng 085747721 Completed 201105/04/2014 RECORDED 05/01/20 12 9:48AM BY SIXTO GALVEZATI ON/ADDEN DUM Not Available [facility] 4 06:38:55 Respirat ory finding Completed 201105/04/2014 RECORDED 05/01/20 12 9:48AM BY KATY CATALAN I ANNOTATI ON/ADDEN DUM Not Available [facility] 4 06:38:55 Blood chemistr y outside referenc e range 256248995 Completed 201105/04/2014 RECORDED 05/01/20 12 9:48AM BY SIXTO GALVEZATI ON/ADDEN DUM Not Available [facility] 4 06:38:55 Disorder of hair AND/OR hair follicle Completed 201105/04/2014 RECORDED 05/01/20 12 9:48AM BY SIXTO GALVEZATI ON/ADDEN DUM Not Available [facility] 4 06:38:55 Well child [id number] Completed 201105/04/2014 RECORDED 05/01/20 12 9:48AM BY SIXTO GALVEZATI ON/ADDEN DUM Not Available [facility] 4 06:38:55 Onychomy cosis due to dermatop hyte 225243559 Completed 201105/04/2014 RECORDED 05/01/20 12 9:48AM BY SIXTO GALVEZATI ON/ADDEN DUM Not Available [facility] 4 06:38:56 Knee pain Completed 201105/04/2014 RECORDED 05/01/20 12 9:48AM BY SIXTO GALVEZATI ON/ADDEN DUM Not Available [facility] 4 06:38:56 Posterio r rhinorrh ea 59551355 Completed 201105/04/2014 RECORDED 05/01/20 12 9:48AM BY SIXTO GALVEZATI ON/ADDEN DUM Not Available [facility] 4 06:38:56 Procedur e refused Completed 201105/04/2014 RECORDED 05/01/20 12 9:48AM BY SIXTO GALVEZATI ON/ADDEN DUM Not Available [facility] 4 06:38:56 Speciali zed medical examinat ion Completed 201105/04/2014 RECORDED 05/01/20 12 9:48AM BY SIXTO GALVEZATI ON/ADDEN DUM Not Available [facility] 4 06:38:56 Screenin g for malignan t neoplasm of cervix Completed 201105/04/2014 RECORDED 05/01/20 12 9:48AM BY ANTHONY GALVEZ ON/ADDEN DUM Not Available [facility] 4 06:38:56 Chronic sinusiti s 08261075 Completed 201105/04/2014 RECORDED 05/01/20 12 9:48AM BY ANTHONY GALVEZ ON/ADDEN DUM Not Available [facility] 4 06:38:56 Diarrhea 81473195 Completed 201104/14/2014 IMPRESSI ON: THIS SEEMS LIKE IBS GIVEN HER SX AND THE AMOUNT OF TIME SHE HAS HAD SX. DOUBT INFECTIO US BECAUSE OF THE DURATION . WILL CHECK STOOL STUDIES NEXT VISIT IF STILL SYMPTOMA TIC.; RECORDED 07/08/20 12 11:19AM BY ANTHONY GALVEZ ON/ADDEN DUM Not Available [facility] 4 14:17:45 Irritabl e bowel syndrome 92791251 Completed 201104/14/2014 RECORDED 07/08/20 12 11:19AM BY ANTHONY GALVEZ ON/ADDEN DUM Not Available [facility] 4 14:17:46 Diarrhea 86516954 Completed 201105/04/2014 IMPRESSI ON: THIS SEEMS LIKE IBS GIVEN HER SX AND THE AMOUNT OF TIME SHE HAS HAD SX. DOUBT INFECTIO US BECAUSE OF THE DURATION . WILL CHECK STOOL STUDIES NEXT VISIT IF STILL SYMPTOMA TIC.; RECORDED 07/08/20 12 11:19AM BY ANTHONY GALVEZ ON/ADDEN DUM Not Available [facility] 4 06:38:55 Irritabl e bowel syndrome 96661066 Completed 201105/04/2014 RECORDED 07/08/20 12 11:19AM BY ANTHONY GALVEZ ON/ADDEN DUM Not Available [facility] 4 06:38:56 Primary malignan t neoplasm of uterine cervix 638444125 Completed 201204/14/2014 AGE 17, LASER REMOVAL; RECORDED 10/08/19 13 11:20AM BY ANTHONY GALVEZ ON/ADDEN DUM Not Available [facility] 4 14:17:46 Acute upper respirat ory infectio n 35296444 Completed 201204/14/2014 RECORDED 10/08/19 13 11:24AM BY SIXTO GALVEZATI ON/ADDEN DUM Not Available [facility] 4 14:17:47 Wheezing 92881620 Completed 201204/14/2014 IMPRESSI ON: NO H/O ASTHMA. SHE WILL CALL IF SHE NEEDS TO USE THE PROAIR DAILY.; RECORDED 10/08/19 13 11:24AM BY SIXTO GALVEZATI ON/ADDEN DUM Not Available [facility] 4 14:17:47 Primary malignan t neoplasm of uterine cervix [id number] Completed 201205/04/2014 AGE 17, LASER REMOVAL; RECORDED 10/08/19 13 11:20AM BY SIXTO GALVEZATI ON/ADDEN DUM Not Available [facility] 4 06:38:56 Acute upper respirat ory infectio n 01929254 Completed 201205/04/2014 RECORDED 10/08/19 13 11:24AM BY SIXTO GALVEZATI ON/ADDEN DUM Not Available [facility] 4 06:38:56 Wheezing 62693765 Completed 201205/04/2014 IMPRESSI ON: NO H/O ASTHMA. SHE WILL CALL IF SHE NEEDS TO USE THE PROAIR DAILY.; RECORDED 10/08/19 13 11:24AM BY SIXTO GALVEZATI ON/ADDEN DUM Not Available [facility] 4 06:38:56 Type 2 diabetes mellitus without complica tion 092657929 Completed 201204/14/2014 IMPRESSI ON: NO CHANGES IN MGMT; CHECK LABS AND ADJUST IF NEEDED.; RECORDED 07/15/20 13 2:53PM BY AINSLEY MONSIVAIS MA, ANNOTATI ON/ADDEN DUM Deja Murphy PA-C [address] [facility] [address], [place], [address] , [facility] 7 13:54:58 Type 2 diabetes mellitus without complica tion 342159868 Completed 201205/04/2014 IMPRESSI ON: NO CHANGES IN MGMT; CHECK LABS AND ADJUST IF NEEDED.; RECORDED 07/15/20 13 2:53PM BY AINSLEY MONSIVAIS MA, ANNOTATI ON/ADDEN DUM Deja Murphy PA-C [address] [facility] [address], [place], [address] , [facility] 7 13:54:58 Screenin g for malignan t neoplasm of breast Completed 201304/14/2014 RECORDED 12/24/19 14 8:19AM BY KATY CATALAN I ANNOTATI ON/ADDEN DUM Not Available [facility] 4 14:17:45 Tobacco dependen ce syndrome 10658536 Completed 201304/14/2014 RECORDED 12/24/19 14 8:19AM BY KATY CATALAN I ANNOTATI ON/ADDEN DUM Not Available [facility] 4 14:17:45 Adult health examinat ion Completed 201304/14/2014 RECORDED 12/24/19 14 8:19AM BY KATY CATALAN I ANNOTATI ON/ADDEN DUM Not Available [facility] 4 14:17:45 Immuniza tion refused Completed 201304/14/2014 RECORDED 12/24/19 14 8:19AM BY SIXTO GALVEZATI ON/ADDEN DUM Not Available [facility] 4 14:17:46 Screenin g for malignan t neoplasm of breast Completed 201305/04/2014 RECORDED 12/24/19 14 8:19AM BY SIXTO GALVEZATI ON/ADDEN DUM Not Available [facility] 4 06:38:55 Tobacco dependen ce syndrome 09118025 Completed 201305/04/2014 RECORDED 12/24/19 14 8:19AM BY KATY CATALAN I ANNOTATI ON/ADDEN DUM Not Available [facility] 4 06:38:55 Adult health examinat ion Completed 201305/04/2014 RECORDED 12/24/19 14 8:19AM BY KATY CATALAN I ANNOTATI ON/ADDEN DUM Not Available [facility] 4 06:38:55 Immuniza tion refused Completed 201305/04/2014 RECORDED 12/24/19 14 8:19AM BY ANTHONY GALVEZ ON/LYRCI DUM Not Available [facility] 4 06:38:56 Laborato ry procedur e performe d 790026806 Completed 201305/26/2014 RECORDED 04/02/20 14 2:51PM BY NATA RIVERS, LAB REQ Scooter Amador MD [address] [facility] [address], [place], [address] , [facility] 4 12:00:02 Chronic obstruct meri pulmonar y disease 64083082 Active 2016 Rubén Murphy PA-C [address] [facility] [address], [place], [address] , [facility] 7 13:22:11 Uncontro lled type 2 diabetes mellitus 306339270 Active 2016 Deja Murphy PA-C [address] [facility] [address], [place], [address] , [facility] 7 13:55:08 Hyperlip idemia 21011863 Active 2020 Scooter Amador MD [address] [facility] [address], [place], [address] , [facility] 1 19:28:56 Problem Notes None recorded. Procedures Surgical History Date Name Laterality Status Provider Name and Address Organization Details Recorded Time 3 Diabetic Foot Exam (Monofilament) completed Scooter Amador MD [address] [address], [place], [address], [facility] 04/24/2023 15:00:38 2 Diabetic Foot Exam (Monofilament) completed Scooter Amador MD [address] [address], [place], [address], [facility] 12/13/2021 14:39:14 1 Diabetic Foot Exam (Monofilament) completed Scooter Amador MD [address] [address], [place], [address], [facility] 02/07/2021 15:13:59 1 Diabetic Foot Exam (Monofilament) completed Scooter Amador MD [address], [address], [facility] 10/15/2020 13:38:53 0 Diabetic Foot Exam (Monofilament) completed Scooter Amador MD [address], [address], [facility] 04/14/2020 17:17:01 9 Diabetic Foot Exam (Monofilament) completed Scooter Amador MD [address], [address], [facility] 03/20/2019 15:31:43 8 Diabetic Foot Exam (Monofilament) completed Scooter Amador MD [address], [address], [facility] 02/28/2018 07:11:43 6 Most Recent Mammogram completed Magda Marcus [facility] 01/07/2016 08:42:52 6 Mammogram Screening completed Magda Marcus [facility] 01/07/2016 08:42:52 5 Date of Last Pap Smear completed Luis Alberto Smith [facility] 03/22/2017 16:18:21 4 Nebulizer tx completed MARIE Pfeiffer [address], [address], [facility] 07/15/2014 14:31:36 Other completed Miryam boone [facility] 07/15/2014 14:13:40 Imaging Results None recorded. Procedure Notes None recorded. Medical Equipment None Reported. Allergies Allergen ID Allergen Name Allergen Category Reaction Reaction Severity Criticality Documentation Date Start Date Code Code System Note Provider Name and Address Organization Details Recorded Time 20093 Actos medicatio n edema moderate Not available 06/29/2021 58625 2 RxNorm Scooter dean MD [address] [facility] [address], [place], [address], [facility] 1 09:25:21 64928 Farxiga medicatio n respirato ry distress Not available Not available 02/25/2025 75567 72 RxNorm Erica Caporale, ADMINISTRATIVE MANAGER null, [facility] 5 13:19:33 Medications Name Sig Start Date [...] release 24 hr 1 TABLET DAILY AT [facility] active Not Available Not Available No [...] Not Available Not Available Not Available FreeStyle [place] kit DAILY 07/03 completed RECORDED 07/15/20 13 [...] Not Available Not Available FreeStyle Lite Strips Take 1 strip every day by miscell. route for 90 days. 2024 active Not Available Not Available Not Avai lable FreeStyle Lite Strips DAILY 02/27 completed Not [...] DateTime 01/22/2025 165.74 cm Janny Zapata MA [facility] 01/22/2025 15:20:54 Date Recorded Body height Body mass index (BMI) Body weight Heart rate Oxygen saturation Body temperature Systolic And Diastolic Provider Name and Address Organization Details Last Updated DateTime 5 165.74 cm 33.6 kg/m2 13437.0 5 g 106 /min 98 % 97.8 [degF] 124/68 mm[Hg] Erica Olsen LPN [facility] [place] 5 13:16:49 Date Recorded Body height Body mass index (BMI) Body weight Heart rate Oxygen saturation Body temperature Systolic And Diastolic Provider Name and Address Organization Details Last Updated DateTime 4 165.74 cm 34.5 kg/m2 05621.8 1 g 105 /min 95 % 98 [degF] 143/83 mm[Hg] Janny Zapata MA [facility] [place] 4 14:37:07 Date Recorded Body height Body mass index (BMI) Body weight Heart rate Oxygen saturation Body temperature Systolic And Diastolic Systolic And Diastolic Provider Name and Address Organization Details Last Updated DateTime 5 165.74 cm 33.4 kg/m2 84100.6 6 g 108 /min 97 % 97.8 [degF] 145/82 mm[Hg] 124/82 mm[Hg] Chuyita Dubois MA [facility] 5 13:37:28 Social History Question Answer Notes LastModified by Organizat ion Details LastModified Time Tobacco Smoking Status Current Every Day Smoker Not Available [facility] 07/27/2020 03:36:37 Do You Have An Advance Directive? Yes [id number] Information not available 07/27/2020 Is Blood Transfusion Acceptable In An Emergency? Yes [id number] Information not available 07/27/2020 What Is Your Level Of Caffeine Consumption? Moderate [id number] Information not available 07/27/2020 How Much Tobacco Do You Chew? None [id number] Information not available 07/27/2020 What Type Of Diet Are You Following? DIABETIC [id number] Information not available 07/27/2020 Which Illicit Or Recreational Drugs Have You Used? No [id number] Information not available 07/27/2020 Education 8 Information n ot available 05/26/2014 Are There Any Guns Present In Your Home? No [id number] Information not available 07/27/2020 Hard Of Hearing [...] Material From Your Doctor Or Pharmacy? Never [email or web address] Information not available 08/10/2015 Have You Served In The ? No [email or web address] [employer] [place] Information not available 10/31/2016 Have You Or Anyone In Your Household Had Any Of The Following Symptoms In The Last 14 Days: Sore Throat, Cough, Chills, Body Aches For Unknown Reasons, Shortness Of Breath For Unknown Reasons, Loss Of Smell, Loss Of Taste, Fever At Or Greater Than 100 Degrees Fahrenheit? No [email or web address] Information not available 04/13/2020 Are You Or Anyone In Your Household A Health Care Provider Or Emergency Responder? No Information not available 04/13/2020 To The Best Of Your Knowledge Have You Been In Close Proximity To Any Individual Who Tested Positive For COVID-19? No [email or web address] Information not available 04/13/2020 Have You Recently Traveled To A COVID-19 High Risk Area Or Gathering In The Last 10 Days? No [email or web address] Information not available 10/14/2020 What Was The Date Of Your Most Recent Tobacco Screening? 01/22/2025 Information not available 01/22/2025 How Many Children Do You Have? 2 [id number] Information not available 07/27/2020 What Is Your Current Pack Years? 30ormorepacky ears [id number] Information not available 07/27/2020 Do You Use Protection During Sex? No [id number] Information not available 07/27/2020 Seat Belts Used Routinely Yes [email or web address] Information not available 08/10/2015 Are You Sexually Active? Yes [id number] Information not available 07/27/2020 Smoke Alarm In Home Yes Engana Ptyultzki Information not available 08/10/2015 At What Age Did You Start Smoking Tobacco? 17 [id number] Information not available 07/27/2020 Are You Passively Exposed To Smoke? Yes [email or web address] Information no t available 07/15/2020 How Much Tobacco Do You Smoke? 2 PPD Information not available 01/22/2025 General Stress Level High Information not available 05/26/2014 Do You Use Sunscreen Routinely? Yes [id number] Information not available 07/27/2020 How Many Years [...] is your level of alcohol consumption? Occasional [id number] Information not available 07/27/2020 Do you or have you ever used smokeless tobacco? Never used smokeless tobacco [id number] Information not available 07/27/2020 Are you currently employed? No [id number] Information not available 07/27/2020 Are you able to walk independently without assistance or assistive devices? YESWOREST Information not available 12/13/2021 Are you able to care for yourself independently? No [id number] Information not available 07/27/2020 Do you or have you ever used e-cigarettes or vape? Never used electronic cigarettes [id number] Information not available 07/27/2020 What is your exercise level? Occasional [id number] Information not available 07/27/2020 Mental Status None recorded. Family History Relationship Description Onset Age of this Age Resolved Age Notes LastModified by Organization Details LastModified Time Mother History of malignant neoplasm [email or web address] Not available 08/10 14:34:22 Maternal Grandfather Hypercholest bernadette ngozi Not available 08/10 14:34:22 Father Harmful pattern of use of alcohol [email or web address] Not available 05/27 15:27:47 Medical History No medical history recorded. Gynecological History Statement/Question Response Date of Last Pap Smear 08/10/2015 Most Recent Mammogram 01/06/2016 Obstetrics History GPAL:G 0 P 0 0 0 0 Immunizations Vaccine Type Date Status Note Provider Name and Address Organization Details Recorded Time pneumococcal polysaccharide PPV23 015 completed Not Available [facility] 10/11/2019 02:21:41 COVID-19, mRNA, LNP-S, PF, 30 mcg/0.3 mL dose 021 completed GM Vazquez [facility] 06/28/2021 15:21:04 COVID-19, mRNA, LNP-S, PF, 30 mcg/0.3 mL dose 021 completed GM Vazquez [facility] 06/28/2021 15:21:23 Td (adult), 2 Lf tetanus toxoid, preservative free, adsorbed 019 completed Not Available [facility] 10/11/2019 02:21:30 Influenza, split virus, quadrivalent, PF 020 cancelled patient objection Kaela Vasquez MA [facility] 07/15/2020 14:31:12 Influenza, split virus, trivalent, preservative 008 completed Not Available [facility] 04/07/2014 14:07:42 Tdap 008 completed Not Available [facility] 04/07/2014 14:07:42 Influenza, split virus, trivalent, preservative 010 completed Not Available [facility] 04/07/2014 14:07:42 Influenza, split virus, trivalent, preservative 011 completed Not Available [facility] 04/07/2014 14:07:43 Past Encounters Encounter ID Performer Location Encounter Start Date Encounter Closed Date Diagnosis/Indication Diagnosis SNOMED-CT Code Diagnosis ICD10 Code Diagnosis IMO Codes Diagnosis Note [id number] autoEComm erce [address] [facility] [place] [address] 11/19/2006 00:00:00 [id number] autoEComm erce [address] [facility] [place] [address] 12/10/2006 00:00:00 [id number] autoEComm erce [address] [facility] [place] [address] 02/22/2007 00:00:00 [id number] autoEComm erce [address] [facility] [place] [address] 08/24/2006 00:00:00 [id number] autoEComm erce [address] [facility] [place] [address] 06/22/2006 00:00:00 [id number] autoEComm erce [address] [facility] [place] [address] 06/04/2006 00:00:00 [id number] autoEComm erce [address] [facility] [place] [address] 03/25/2007 00:00:00 [id number] autoEComm erce [address] [facility] [place] [address] 06/05/2007 00:00:00 [id number] autoEComm erce [address] [facility] [address] [place] [address] 10/25/2007 00:00:00 [id number] autoEComm erce [address] [facility] [address] [place] [address] 01/22/2008 00:00:00 [id number] autoEComm erce [address] [facility] [place] [address] 04/23/2008 00:00:00 [id number] autoEComm erce [address] [facility] [place] [address] 08/06/2008 00:00:00 [id number] autoEComm erce [address] [facility] [place] [address] 08/08/2008 00:00:00 [id number] autoEComm erce [address] [facility] [place] [address] 10/09/2008 00:00:00 [id number] autoEComm erce [address] [facility] [place] [address] 12/11/2008 00:00:00 [id number] autoEComm erce [address] [facility] [place] [address] 01/12/2009 00:00:00 92013 autoEComm erce [address] [facility] [place] [address] 04/26/2009 00:00:00 [id number] autoEComm erce [address] [facility] [place] [address] 07/29/2009 00:00:00 [id number] autoEComm erce [address] [facility] [place] [address] 09/07/2009 00:00:00 [id number] autoEComm erce [address] [facility] [place] [address] 02/09/2010 00:00:00 [id number] autoEComm erce [address] [place] [address] 03/11/2010 00:00:00 [id number] autoEComm erce [address] [place] [address] 05/31/2010 00:00:00 [id number] autoEComm erce [address] [place] [address] 06/21/2010 00:00:00 [id number] autoEComm erce [address] [facility] [address] [place] [address] 08/24/2010 00:00:00 [id number] autoEComm erce [address] [facility] [address] [place] [address] 09/12/2010 00:00:00 [id number] autoEComm erce [address] [facility] [place] [address] 11/24/2010 00:00:00 [id number] autoEComm erce [address] [facility] [place] [address] 01/20/2011 00:00:00 [id number] autoEComm erce [address] [facility] [address] [place] [address] 03/02/2011 00:00:00 [id number] autoEComm erce [address] [facility] [place] [address] 06/09/2011 00:00:00 [id number] autoEComm erce [address] [facility] [address] [place] [address] 10/03/2011 00:00:00 [id number] autoEComm erce [address] [facility] [address] [place] [address] 02/05/2012 00:00:00 [id number] autoEComm erce [address] [facility] [address] [place] [address] 03/05/2012 00:00:00 [id number] autoEComm erce [address] [place] [address] 05/01/2012 00:00:00 [id number] autoEComm erce [address] [facility] [place] [address] 07/08/2012 00:00:00 [id number] autoEComm erce [address] [facility] [place] [address] 10/08/2012 00:00:00 [id number] autoEComm erce [address] [facility] [place] [address] 01/09/2013 00:00:00 [id number] autoEComm erce [address] [facility] [place] [address] 07/15/2013 00:00:00 [id number] autoEComm erce [address] [facility] [place] [address] 01/05/2014 00:00:00 [id number] autoEComm erce [address] [facility] [place] [address] 11/09/2009 00:00:00 [id number] autoEComm erce [address] [facility] [place] [address] 04/09/2013 00:00:00 [id number] autoEComm erce [address] [facility] [place] [address] 11/28/2011 00:00:00 [id number] autoEComm erce [address] [facility] [place] [address] 09/15/2011 00:00:00 [id number] autoEComm erce [address] [facility] [place] [address] 07/11/2011 00:00:00 [id number] Scooter Amador MD Main Office [address] [facility] [address] [place] [address] 05/26/2014 11:43:44 05/26/2014 12:22:40 Type 2 diabetes mellitus 03607517 Pure hypercholesterolemia 196900525 Schizophrenia 78996705 Tobacco de pendence syndrome 02023303 455464MARIE Espino Main Office [address] [address] [place] [address] 07/15/2014 13:46:49 07/15/2014 14:50:06 Allergic rhinitis 76461114 Cough 75840986 Cough, congestion , insp/ exp wheezing, hoarse voice, tachycardi a, sat 93% RA. Will treat with prednisone burst and zpak for possible bacterial infection. Also recommend patient use her inhaler 2 puffs every 4 hours as needed for cough/ wheezing. Stay well hydrated, humidifier as needed, rest, tylenol or ibuprofen as needed for pain/ fever. Nasal congestion 78790327 [id number] Scooter Amador MD Main Office [address] [address] [place] [address] 01/27/2015 14:32:48 01/27/2015 15:55:21 Adult health examination 528015632 Administra tion of pneumococcal vaccine 24925619 Type 2 irasema betes mellitus without complication 781423432 will increase her metformin from 500 bid to 1000 bid since her A1C is no longer at goal. Screening for malignant neoplasm of breast 244610110 Pure hypercholesterolemia 381217331 will increase her dose from 20 to 40 mg since her LDL is not at goal. Schizophrenia 76026762 on meds, living in a alf and followed by psych. [id number] Scooter Amador MD Main Office [address] [address] [place] [address] 05/06/2015 14:03:50 05/06/2015 15:26:34 Type 2 diabetes mellitus 62976003 Pure hypercholesterolemia 265059414 will increase her dose from 20 to 40 mg since her LDL is not at goal. Allergic rhinitis 77603416 continue current mgmt [id number] Scooter Amador MD Main Office [address] [address] [place] [address] 08/10/2015 14:23:33 08/10/2015 15:23:14 Type 2 diabetes mellitus 10998849 E11.9 her A1C has been at goal in the past. She is c/w her meds. Gynecologi c examination 72568588 Z01.411 Screening for malignant neoplasm of breast 359268983 Z12.39 she has never had a mammogram because she has been anxious about going but states that she feels she is now ready. Tobacco de pendence syndrome 83910113 F17.290 we spoke about quitting. She stopped smoking in the past during each of her pregnancie s. [id number] Scooter Amador MD Main Office [address] [address] [place] [address] 11/09/2015 14:31:59 11/09/2015 15:27:25 Type 2 diabetes mellitus 01559718 E11.9 her A1C is at goal in the past. She is c/w her meds. Schizophrenia 06208977 F 20.3 on meds, living in a alf and followed by psych. Tobacco de pendence syndrome 92391522 F17.290 we spoke about quitting. She stopped smoking in the past during each of her pregnancie s. Pure hypercholesterolemia 408763703 E78.0 we increased her dose from 20 to 40 mg since her LDL was not at goal. Recheck fasting lipid level. Chest pain 67053199 R07. 9 she is at high risk for heart disease because of her smoking and diabetes [id number] Scooter Amador MD Main Office [address] [address] [place] [address] 02/16/2016 12:45:58 02/16/2016 13:25:59 Type 2 diabetes mellitus 86504245 E11.9 her A1C is at goal in the past. She is c/w her meds. Schizophrenia 02793399 F 20.3 on meds, living in a alf and followed by psych. [id number] Deja Murphy PA-C Main Office [address] [address] [place] [address] 06/30/2016 15:03:47 06/30/2016 15:45:43 Injury of finger 22110117 S69.82XA L big finger injury due to fall. XRAys to r/o fracture. Immobiliza tions with splint, ice several times daily and NSAIDs as directed for 7-10 days. referral to hand specialist . [id number] Deja Murphy PA-C Main Office [address] [address] [place] [address] 09/22/2016 15:06:27 09/22/2016 16:05:08 Cough 77752605 R05 Acute pharyngitis 856261 003 J02.9 Acute sinusitis 54395457 J01.90 Wheezing 37761471 R06.2 [id number] Scooter Amador MD Main Office [address] [facility] [address] [place] [address] 10/31/2016 13:40:19 10/31/2016 14:46:59 Adult health examination 128751117 Z00.00 UTD with immunizati ons. Had a PAP done Jul 2015. Type 2 irasema betes mellitus 46730691 E11.9 her A1C is a little above goal. She is c/w her meds. She will try to make some changes and we will f/u in 3 months w/o making any changes in meds right now. We will make an eye appointmen t for her. Schizophrenia 23644712 F 20.3 on meds, living in a alf and followed by psych. Tobacco de pendence syndrome 47097514 F17.290 we spoke about quitting. She stopped smoking in the past during each of her pregnancie s. Hyperlipidemia 28436623 E78.5 We increased her med at a previous visit and will recheck her fasting lipid level. [id number] Rubén Murphy PA-C Main Office [address] [address] [place] [address] 12/25/2016 11:34:50 12/25/2016 12:20:54 Acute conjunctivitis 67550601 H10.33 Nasal congestion 8756680 0 R09.81 [id number] Scooter Amador MD Main Office [address] [address] [place] [address] 03/06/2017 12:39:50 03/06/2017 13:33:42 Type 2 diabetes mellitus 88619893 E11.9 Her A1C continues to rise as does her weight. We will add januvia to her regimen. Schizophrenia 46930217 F 18.3 on meds, living in a alf and followed by psych. [id number] Rubén Murphy PA-C Main Office [address] [address] [place] [address] 05/10/2017 15:11:49 05/10/2017 16:27:12 Sore throat 886285761 J02.9 Pneumonia 865991387 J18. 9 Wheezing 23296653 R06.2 is running low on proair - has used it past few days - will renew [id number] Rubén Murphy PA-C Main Office [address] [facility] 207 [facility] [address] 05/24/2017 09:33:03 05/24/2017 11:17:36 Dyspnea 366093992 R06.00 much improved p pna rx pt [...] gums - it has helped before Pneumonia 439342807 J18. 9 resolved s/p rx Tobacco de pendence syndrome 52696800 F17.200 strongly encouraged tob cessation - she states she will try ankit gums again - this had worked for her in the past Cough 80231238 R05 most likely d/t prolonged tobacco exp. - see below Chronic ob structive pulmonary disease 20948487 J44.9 see above [id number] Scooter Amador MD Main Office [address] [facility] 207 [place] [address] 06/06/2017 14:22:12 06/06/2017 16:18:04 Type 2 diabetes mellitus 32189805 E11.9 Since her A1C was rising we did a script for januvia which was not covered by her insurance. We then did a script for actos which she only filled about 2-3 weeks ago. Her A1C has come down slightly so we will not make any changes at this time. Chronic ob structive pulmonary disease 28329177 J44.9 We discussed quitting smoking to help prevent further progressio n. Since she denies SOB and exam is normal we will not start any meds but will monitor her function. [id number] Deja Murphy PA-C Main Office [address] [facility] 207 [facility] [place] [address] 07/06/2017 12:59:15 07/06/2017 14:07:16 Uncontrolled type 2 diabetes mellitus 795690891 E11.65 Total time spent teaching and coordinati [...] be set up to see notionist at [facility]. Pt. was advised to start exercise [...] m. Body mass index 30+ - obesity 053831942 Z68.34 Obesity 994044991 E66.9 [id number] Scooter Amador MD Main Office [address] [facility] 207 [place] [address] 09/05/2017 12:48:05 09/05/2017 13:58:41 Uncontrolled type 2 diabetes mellitus 292841977 E11.65 Excellent improvemen t in A1C which is now less than 7.0 again (down to 6.8). She will continue with current mgmt since it is working. Dysuria 05891733 R30.0 No longer with symptoms so will send culture and will not do abx for now. She was advised to drink more fluids. Schizophrenia 01739587 F 18.3 on meds, living on her own with supervisguera [facility] and followed by psych. [id number] Deja Murphy PA-C Main Office [address] [facility] [address] [place] [address] 10/23/2017 14:27:22 10/23/2017 15:48:51 Uncontrolled type 2 diabetes mellitus 921666265 E11.65 STable type II Diabetes w/o complicati ons. Continue current meds. Discussed lowering calories even further and increasing exercise activity. Test glucose 1 time per day and bring glucose log to next visit. F/u 3 m. Repeat labs. Upper resp iratory infection 62452449 J06.9 Wheezing 16352835 R06.2 Chronic ob structive pulmonary disease 31093529 J44.9 Body mass index 30+ - obesity 428449461 E66.01 Z68.35 [id number] Scooter Amador MD Main Office [address] [place], [place] [address] [address] 02/27/2018 13:02:09 02/27/2018 14:22:54 Adult health examination 945606079 Z00.00 UTD with immunizati ons. Had a PAP done Jul 2015 and will return for a PAP Genital warts 237555243 A63.0 Will try topical treatment and if persists will Uncontroll ed type 2 diabetes mellitus 602157667 E11.65 A1C continues to be at goal below 7.0 and is currently at 6.3 . She will continue with current mgmt since it is working. [id number] Scooter Amador MD Main Office [address] [place], [place] [address] [address] 06/06/2018 12:57:48 06/06/2018 13:58:46 Uncontrolled type 2 diabetes mellitus 580997310 E11.65 A1C continues to be at goal below 7.0 and is currently at 6.6. She will continue with current mgmt since it is working. Schizophrenia 70252023 F 18.3 on meds, living on her own with supervisio n and followed by psych. [id number] Scooter Amador MD Main Office [address] [place] [address] [place] [address] 08/22/2018 13:25:23 08/22/2018 14:17:54 Acute pharyngitis 011019514 J02.9 Cough 37208626 R05 She will use robitussin prn. [id number] Scooter Amador MD Main Office [address] [place] [address] [place] [address] 03/20/2019 15:00:36 03/20/2019 15:56:26 Uncontrolled type 2 diabetes mellitus 059752126 E11.65 A1C continues to be at goal below 7.0 and is currently at 6.7. She will continue with current mgmt since it is working. Schizophrenia 53581169 F 20.3 on meds, living on her own with supervisio n and followed by psych. Chronic ob structive pulmonary disease 88698021 J44.9 Continues to smoke Requires a tetanus booster 688009696 Z23 [id number] Scooter Amador MD Main Office [address] [address] [place] [address] 06/23/2019 14:34:34 06/23/2019 15:59:51 Adult health examination 112759439 Z00.00 UTD with immunizati ons. Had a PAP done Jul 2015 and will return for a PAP Type 2 irasema betes mellitus without complication 765340799 E11.9 Body mass index 30+ - obesity 096804672 E66.01 Z68.36 Schizophrenia 46626539 F 18.3 on meds, living on her own with supervis n and followed by psych. [id number] Scooter Amador MD Main Office [address] [place] [address] 04/13/2020 12:37:21 04/13/2020 13:38:09 Uncontrolled type 2 diabetes mellitus 612721270 E11.65 A1C continues to be at goal below 7.0 and is currently at 6.7. She will continue with current mgmt since it is working. Right late ral elbow tendinopathy 7293093046 81925 M77.11 Chronic ob structive pulmonary disease 55417381 J44.9 Continues to smoke Schizophrenia 23337446 F 18.3 on meds, [facility]. Tobacco de pendence syndrome 02037079 F17.290 we spoke about quitting. She stopped smoking in the past during each of her pregnancie s. [id number] Scooter Amador MD Main Office [address] [facility] 207 [place] [address] 07/15/2020 14:10:04 07/15/2020 15:21:15 Adult health examination 020528101 Z00.00 UTD with immunizati ons but refuses a flu vaccine. Had a PAP done Jul 2015 and will return for a PAP Needs infl uenza immunization 914260338 Z23 Uncontroll ed type 2 diabetes mellitus 934188416 E11.65 Her diabetes is no longer uncontroll ed; her A1C today is 7.0. She was encouraged to stay with the same mgmt. Schizophrenia 30874325 F 18.3 on meds, living on her own with supervis n and followed by psych. Tobacco de pendence syndrome 80412529 F17.290 we spoke about quitting. She stopped smoking in the past during each of her pregnancie s. Body mass index 30+ - obesity 629005033 E66.01 [id number] Scooter Amador MD Main Office [address] [address] 10/14/2020 13:41:53 10/14/2020 14:42:06 Uncontrolled type 2 diabetes mellitus 540164050 E11.65 Her A1C increased form 7.0 to 7.7. We will increase her actos from 15 to 30 mg and see her back in 3 months. Hyperlipidemia 72985375 E78.5 We increased her med at a previous visit and LDL is now at goal. Schizophrenia 34176924 F 20.3 on meds, [facility]. Chronic ob structive pulmonary disease 91162201 J44.9 Continues to smoke [id number] Scooter Amador MD Main Office [address] [address] 02/07/2021 14:23:01 02/07/2021 15:22:47 Uncontrolled type 2 diabetes mellitus 154189269 E11.65 Her A1C continues to increase despite being c/w her meds. Will increase her actos from 30 to 45 mg and she will continue metformin trajenta. Chronic ob structive pulmonary disease 34090094 J44.9 Continues to smoke Hyperlipidemia 24771483 E78.5 LDL at goal. Will check fasting lipid level. Schizophrenia 56021400 F 18.3 on meds, [facility]. [id number] Scooter Amador MD [facility] 3640 [facility] 207 [place] [address] 03/17/2021 13:57:16 03/18/2021 14:44:54 Uncontrolled type 2 diabetes mellitus 099642095 E11.65 She has been having SE's since [...] in 2 months. Tobacco de pendence syndrome 41638577 F17.290 we spoke about quitting. She stopped smoking in the past during each of her pregnancie s. Anxiety 34367201 F41.9 It is doubtful that this is secondary to her actos. She will speak to her mental health provider about this. [id number] Scooter Amador MD Main Office [address] [place] [address] [place] [address] 06/28/2021 14:51:15 06/28/2021 15:56:27 Uncontrolled type 2 diabetes mellitus 909768097 E11.65 She was not able to tolerate the actos because of ankle swelling, nausea and bloating. She stopped this a couple of months ago and her SE's resolved. Unfortunat sheila her A1C increased from 8.1 to 9.3. We will add another po med and she understand s that she may need meds that require injections in the future. Schizophrenia 33583261 F 18.3 on meds, living on her own with supervisio n and followed by psych. Hyperlipidemia 36718559 E78.5 LDL at goal. Will check fasting lipid level next appointmen t. [id number] Scooter Amador MD Main Office [address] [place] [address] [place] [address] 08/16/2021 13:29:39 08/16/2021 14:38:24 Tinea cruris 036346647 B35.6 Candidiasis of vagina 72 909859 B37.3 [id number] Scooter Amador MD Main Office [address] [place] [address] [place] [address] 12/13/2021 12:41:16 12/13/2021 13:49:23 Adult health examination 423018383 Z00.00 UTD with immunizati ons. Had a PAP done Jul 2015 and will return for a PAP. Does not want to do one today. Uncontroll ed type 2 diabetes mellitus 340689261 E11.65 She was not able to tolerate the actos because of ankle swelling, nausea and bloating. She stopped this a couple of months ago and her SE's resolved. Unfortunat sheila her A1C increased from 8.1 to 9.3. We will add another po med and she understand s that she may need meds that require injections in the future. Chronic ob structive pulmonary disease 99622501 J44.9 Continues to smoke Hyperlipidemia 78852315 E78.5 LDL at goal. Will check fasting lipid level. Schizophrenia 53786961 F 18.3 on meds, living on her own with supervisio n and followed by psych. Body mass index 30+ - obesity 619920618 E66.01 Z68.33 [id number] Scooter Amador MD Main Office [address] [facility] 207 [place] [address] 08/29/2022 13:05:29 08/29/2022 14:30:53 Uncontrolled type 2 diabetes mellitus 690475306 E11.65 She was not able to tolerate the actos because of ankle swelling, nausea and bloating. She stopped this and her SE's resolved. . We added jardiance and tradjenta and her A1C came down from 9.3 to 7.6. She will work on lifestyle changes to bring this down more. Allergic rhinitis 503437 04 J30.9 continue current mgmt Schizophrenia 77435333 F 18.3 on meds, living on her own with [facility] and followed by psych. [id number] Scooter Amador MD Main Office [address] [facility] 207 [place] [address] 04/24/2023 14:19:20 04/24/2023 15:26:54 Uncontrolled type 2 diabetes mellitus 432530365 E11.65 She was not able to tolerate the actos because of ankle swelling, nausea and bloating. She stopped this and her SE's resolved. . We added jardiance and tradjenta and her A1C came down from 9.3 to 7.6. She checks her sugars and says that they are generally in the low 100's. Schizophrenia 29789567 F 18.3 on meds, living on her own with supervis n and followed by psych. Allergic rhinitis 379990 04 J30.9 continue current mgmt Chronic ob structive pulmonary disease 68099358 J44.9 Continues to smoke [id number] Scooter Amador MD Main Office [address] [facility] 207 [place] [address] 08/07/2023 13:23:20 08/07/2023 14:27:58 Uncontrolled type 2 diabetes mellitus 306278590 E11.65 She was not able to tolerate the actos because of ankle swelling, nausea and bloating. She stopped this and her SE's resolved. . We added jardiance and tradjenta and her A1C came down from 9.3 to 7.2. She checks her sugars and says that they are generally in the low 100's. Adult heal th examination 420150887 Z00.00 UTD with immunizati ons. Had a PAP done Jul 2015 and will return for a PAP. Does not want to do one today. Screening for malignant neoplasm of colon 776055020 Z12.11 Tobacco de pendence syndrome 63012613 F17.290 we spoke about quitting. She stopped smoking in the past during each of her pregnancie s. Chronic ob structive pulmonary disease 47451435 J44.9 Continues to smoke Hyperlipidemia 62403300 E78.5 LDL at goal. Will check fasting lipid level. Schizophrenia 11312941 F 18.3 on meds, [facility]. Has some mild depression which is followed by her psych provider. [id number] Scooter Amador MD Main Office [address] [facility] 207 [place] [address] 11/23/2023 11:21:25 11/23/2023 12:21:38 Uncontrolled type 2 diabetes mellitus 957475433 E11.65 A1C increased from 7.2 to 7.3, Would like to continue on metformin and tradjenta instead of adding med, will stay consistent with exercise and trying to eat better. Does exercises in 3 sets to get through during the day. Tradjenta refilled. Schizophrenia 60018245 F 18.3 on meds, [facility]. Allergic rhinitis 965526 04 J30.9 continue current mgmt Chronic ob structive pulmonary disease 57335718 J44.9 Continues to smoke [id number] Scooter Amador MD Main Office [address] [facility] 207 [place] [address] 02/27/2024 14:25:32 02/27/2024 15:27:48 Uncontrolled type 2 diabetes mellitus 859910492 E11.65 She was not able to tolerate the Actos because of ankle swelling, nausea and bloating. She stopped this and her SE's resolved. . We added jardiance and tradjenta and her A1C came down from 9.3 to 7.2. But the jardiance is no longer on formulary. She also stopped the tradjenta for unclear reasons but will restart it. Fatigue 33126920 R53.83 Hyperlipidemia 66206104 E78.5 Last LDL at goal. Will check fasting lipid level. Schizophrenia 84191967 F 18.3 on meds, living on her own with supervisio n and followed by psych. Has some mild depression which is followed by her psych provider. [id number] Scooter Amador MD Main Office [address] [place] [address] 01/20/2025 15:07:20 01/20/2025 15:45:35 [id number] Scooter Amador MD [facility] [address] [place] [address] 01/22/2025 13:02:53 01/23/2025 14:51:58 Allergic rhinitis 73890193 J30.9 continue current mgmt Chronic ob structive pulmonary disease 98248504 J44.9 She has been trying to quit smoking and currently smokes less than 5 cigarettes a day. She understand s that she needs to stop completely since increasing the number of daily cigarettes will likely increase with time. She is not currently using any inhalers. As an inpatient she was given oxygen but was not discharged with it. Schizophrenia 62737071 F 20.3 on meds, living on her own with supervisio n and followed by psych. Has some mild depression which is followed by her psych provider. Tobacco de pendence syndrome 17447545 F17.290 She has cut back significan tly and knows that she needs to quit totally because of her COPD dx. Community acquired pneumonia 682997553 J15.9 [id number] She was septic and was admitted to [facility]. She was discharged to complete a course of abx and steroids. [id number] Scooter Amador MD Main Office [address] [place] [address] 02/25/2025 13:01:35 02/25/2025 13:42:37 Preseptal cellulitis 553009003 L03.213 21341285 x3 days of swelling to the lower and upper lid, erythemato us-denies of any vision changes or pain to the orbital, no pain with EOM-no known trauma to the area-will provide augmentin course and discussed conservati ve measuremen ts Vesicular eczema 0678201 08 L30.1 872 left hand; 3rd and 4th digit- medial aspect-chris l provide topical steroid cream-disc ussed conservati ve measuremen ts [id number] Scooter Amador MD Main Office [address] [place] [address] 06/11/2025 13:06:00 06/11/2025 14:03:22 Chronic vertigo 5256399200 9105 R42 37839101 Chronic ot itis externa 77114160 H60.312 91339116 Uncontroll ed type 2 diabetes mellitus 737984767 E11.65 She was not able to tolerate the Actos because of ankle swelling, nausea and bloating. She stopped this and her SE's resolved. . We added jardiance and tradjenta and her A1C came down from 9.3 to 7.2. But the jardiance is no longer on formulary. She also stopped the tradjenta for unclear reasons but will restart it. Hyperlipidemia 57241334 E78.5 Last LDL at goal. Will check fasting lipid level. Health Concerns Section Related Observation LastModified by Organization Detai ls LastModified Time None Recorded Concern Status LastModified by Organization Details LastModified Time None Recorded Advance Directives Directive Y: Payers Insurance Date Sequence Insurance Name Policy Number Policy Chopra Covered Member ID Chopra Member ID Guarantor Name 01/21/2025 3 [employer] (MEDICARE SUPPLEMENT) Aura Hood [id number] Aura Hood 06/11/2025 1 MEDICARE B-[place]: [facility] Aura Hood [id number] Aura Hood 06/24/2025 2 [place] [facility] Aura Hood [id number] Aura Hood Notes Date Note Type Note [...] been a problem recently. Scooter Amador MD [address] [address], [place], [address], [facility] 02/27/2024 18:37:36 5 text/html Hospitalization Contact RecordReported by PatientHospitalization Contact RecordFor follow up, [facility],admit date: (please enter in format 'mm/dd/yyyy') [...] old female with several comorbidities presented to [facility] with Shortness of breath associated with weakness. [...] 5 days of antibiotic and steriod regimen. Overlay Plastician updated medication list as noted. Attempted several times to complete ELZBIETA call cell number is out of services , called emergency contact number no answer, unable to leave message. Attempted to look in [facility] for any additional contact infomation no update information was noted . Patient is scheduled to follow up with provider for DM on 02/04/2025 . Scooter Amador MD [address] [address], [place], [address], [facility] 01/20/2025 15:45:32 5 text/html Hospitalization Contact RecordReported by PatientHospitalization Contact RecordFor follow up, patient [facility]shospital: [facility],admit date: (please enter in format 'mm/dd/yyyy') [...] old female with several comorbidities presented to [facility] with shortness of breath associated with [...] on 02/04/2025 . Scooter Amador MD [address] [address], [place], [address], [facility] 01/24/2025 11:02:08 5 text/html ROS as noted in the HPI Aura is a 49yr old F who presents for eye redness. Endorses x3 days of swelling and redness to the upper and lower lids and surround skin of the right eye. Denies of any changes in vision or pain with EOM. LESLIE TUCKER [address] [address], [place], [address], [facility] 02/25/2025 13:46:31 5 text/html ROS as [...] more than a year. Scooter Amador MD [address] [address], [place], [address], [facility] 06/11/2025 18:08:43 OBGyn Episode No OBEpisode recorded.
--- OUTSIDE RECORDS SUMMARY | 2025-08-18 19:03 | XMS_ITS | Continuity of Care Document ---
Author Organization [facility], Main Office Address [address] [facility] [address] [place] [address] Care Team Providers Care Search Developer Name Role Phone SCOOTER AMADOR Primary Care [...] To The Location Of Their Choice, 06/11/2025 13:59:26 CMP, serum or plasma 2024 025 [facility] (Centralized Electronic Ordering - All Locations), Patient Can Go To The Location Of Their Choice, 06/11/2025 13:59:27 albumin/c reatinine , mass ratio, urine 2024 025 O[facility] (Centralized Electronic Ordering - All Locations), Patient Can Go To The Location Of Their Choice, 06/11/2025 13:59:28 HbA1c (hemoglob in A1c), blood 2024 025 OMAR [facility] (Centralized Electronic Ordering - All Locations), Patient Can Go To The Location Of Their Choice, [id number] 06/11/2025 13:59:28 lipid panel, serum 2024 025 [facility], [address], [place], [address], 06/11/2025 13:59:27 LDL, direct, serum 2024 025 [facility], [address] [place], [address], 06/11/2025 13:59:27 Referral vestibula r therapy referral - Chronic vertigo 2024 025 [email or web address] [facility] - [place] - [facility], [address] [facility] , [facility] [place], [address], 06/11/2025 14:03:22 Procedures None recorded. Surgeries None recorded. Imaging None recorded. Medication Orders neomycin- polymyxin -hydrocor t 3.5 mg-10,000 unit/mL-1 % ear drops,angeline p 2024 025 [place] [id number], [address] [place], [phone], 06/11/2025 13:57:14 Patient TargetsNo targets recorded. Patient Instructions Encounter Date Encounter Id Patient Instructions Last Modified By Organization Details Last Modified Time 06/11/2025 [id number] type 2 diabetes: care instructions [email or web address] Not available 06/11/2025 13:59:09 Reason for Referral Vestibular Therapy Referral for Chronic vertigo Chronic vertigo Referring Physician: Scooter Amador, Family Medicine, Encounter Date: 06/11/2025 Problems Name Problem SNOMED Code Status Onset Date Resolution Date Notes Provider Name and Address Organization Details Recorded Time Allergic rhinitis 95805015 Active Scooter Amador MD [address] [facility] [address], [place], [address] , [facility] 5 17:55:35 Type 2 diabetes mellitus without complica tion 183859341 Completed 07/06/2017 Deja Murphy PA-C [address] [facility] [address], [place], [address] , [facility] 7 13:54:58 Malaise and fatigue 505673144 Completed 05/24/2017 Xi rodriguez, [facility] 7 09:53:48 Pure hypercho lesterol emia 797241198 Completed 10/31/2016 Scooter Amador MD [address], [place], [address] , [facility] 7 14:03:55 Schizoph yanique 81353120 Active Stable on meds. Followed by psych Scooter Amador MD [address], [place], [address] , [facility] 6 13:25:02 Tobacco dependen ce syndrome 95387609 Active Scooter Amador MD [address], [place], [address] , [facility] 6 15:15:56 Type 2 diabetes mellitus 92029497 Completed 01/28/2015 Deja Murphy PA-C [address], [place], [address] , [facility] 7 13:55:02 Cough 21577292 Completed 05/24/2017 Xi rodriguez [facility] 7 09:53:54 Nasal congesti on 30877058 Completed 05/24/2017 Xi rodriguez, [facility] 7 09:53:58 Type 2 diabetes mellitus 65113451 Completed 07/06/2017 Deja Murphy PA-C [address], [place], [address] , [facility] 7 13:55:02 Gynecolo gic examinat ion Active Scooter Amador MD [address], [place], [address] , [facility] 5 06:59:59 Chest pain 84336375 Com[facility] 05/24/2017 [facility] 7 09:53:51 Urinary incontin ence 059780761 Completed 200704/14/2014 RESOLVED DATE: 04/23/20 08; RECORDED 04/23/20 08 10:15AM BY SCOOTER SILVA MD, ANNOTATI ON/ADDEN DUM Not Available [facility] 4 14:17:47 Urinary incontin ence 672103096 Completed 200705/04/2014 RESOLVED DATE: 04/23/20 08; RECORDED 04/23/20 08 10:15AM BY SCOOTER SILVA MD, ANNOTATI ON/ADDEN DUM Not Available [facility] 4 06:38:56 Cough 16106237 Completed 200704/14/2014 DATE: 08/06/20 08; IMPRESSI ON: W/ WHEEZING .; RECORDED 05/01/20 12 9:48AM BY KATY CATALAN I ANNOTATI ON/ADDEN DUM [facility] 7 09:53:54 Administ ration of bacteria l and viral vaccine Completed 200704/14/2014 RECORDED 08/06/20 08 2:05PM BY GM SEAMAN, OFFICE VISIT Not Available [facility] 4 14:17:46 Cough 88691985 Completed 200705/04/2014 DATE: 08/06/20 08; IMPRESSI ON: W/ WHEEZING .; RECORDED 05/01/20 12 9:48AM BY SIXTO GALVEZATI ON/ADDEN DUM Xi [facility]uliana [facility] 7 09:53:54 Administ ration of bacteria l and viral vaccine Completed 200705/04/2014 RECORDED 08/06/20 08 2:05PM BY GM SEAMAN, OFFICE VISIT Not Available [facility] 4 06:38:56 Acute sinusiti s 81009740 Completed 200804/14/2014 RECORDED 01/13/20 09 10:58AM BY MIRYAM CELIS MA, ANNOTATI ON/ADDEN DUM Not Available [facility] 4 14:17:44 Eruption 839040332 Completed 200804/14/2014 RECORDED 01/13/20 09 10:58AM BY MIRYAM CELIS MA, ANNOTATI ON/ADDEN DUM Not Available [facility] 4 14:17:46 Acute sinusiti s 68189029 Completed 200805/04/2014 RECORDED 01/13/20 09 10:58AM BY MIRYAM CELIS MA, ANNOTATI ON/ADDEN DUM Not Available [facility] 4 06:38:55 Eruption 043193706 Completed 200805/04/2014 RECORDED 01/13/20 09 10:58AM BY MIRYAM CELIS MA, ANNOTATI ON/ADDEN DUM Not Available [facility] 4 06:38:56 Trichomo nal vulvovag initis 57126785 Completed 201004/14/2014 DATE: 03/02/20 11; RECORDED 05/01/20 12 9:48AM BY ANTHONY GALVEZ ON/ADDEN DUM Not Available [facility] 4 14:17:46 Trichomo nal vulvovag initis 73051486 Completed 201005/04/2014 DATE: 03/02/20 11; RECORDED 05/01/20 12 9:48AM BY ANTHONY GALVEZ ON/ADDEN DUM Not Available [facility] 4 06:38:56 Influenz a vaccine needed 60367105445 06 Completed 201004/14/2014 DATE: 06/09/20 11; RECORDED 05/01/20 12 9:48AM BY ANTHONY GALVEZ ON/ADDEN DUM Not Available [facility] 4 14:17:45 Influenz a vaccine needed 22524473352 06 Completed 201005/04/2014 DATE: 06/09/20 11; RECORDED 05/01/20 12 9:48AM BY KATY SCHULTZK I, ANNOTATI ON/ADDEN DUM Not Available [facility] 4 06:38:55 Abdomina l pain 70478366 Completed 201104/14/2014 IMPRESSI ON: PT WITH INTERMIT [...] CATALAN I ANNOTATI ON/ADDEN DUM Not Available [facility] 4 14:17:44 Dizzines s and giddines s 641581315 Completed 201104/14/2014 RECORDED 05/01/20 12 9:48AM BY KATY CATALAN I ANNOTATI ON/ADDEN DUM Not Available [facility] 4 14:17:45 Dysmenor seng 626044007 Completed 201104/14/2014 RECORDED 05/01/20 12 9:48AM BY KATY CATALAN I ANNOTATI ON/ADDEN DUM Not Available [facility] 4 14:17:45 Respirat ory finding Completed 201104/14/2014 RECORDED 05/01/20 12 9:48AM BY SIXTO GALVEZATI ON/ADDEN DUM Not Available [facility] 4 14:17:45 Blood chemistr y outside referenc e range 299416218 Completed 201104/14/2014 RECORDED 05/01/20 12 9:48AM BY SIXTO GALVEZATI ON/ADDEN DUM Not Available [facility] 4 14:17:45 Disorder of hair AND/OR hair follicle Completed 201104/14/2014 RECORDED 05/01/20 12 9:48AM BY SIXTO GALVEZATI ON/ADDEN DUM Not Available [facility] 4 14:17:45 Well child 667339846 Completed 201104/14/2014 RECORDED 05/01/20 12 9:48AM BY KATY CATALAN I ANNOTATI ON/ADDEN DUM Not Available [facility] 4 14:17:45 Onychomy cosis due to dermatop hyte 743113384 Completed 201104/14/2014 RECORDED 05/01/20 12 9:48AM BY KATY CATALAN I ANNOTATI ON/ADDEN DUM Not Available [facility] 4 14:17:46 Knee pain Completed 201104/14/2014 RECORDED 05/01/20 12 9:48AM BY KATY CATALAN I ANNOTATI ON/ADDEN DUM Not Available [facility] 4 14:17:46 Posterio r rhinorrh ea 13833443 Completed 201104/14/2014 RECORDED 05/01/20 12 9:48AM BY KATY CATALAN I ANNOTATI ON/ADDEN DUM Not Available [facility] 4 14:17:46 Procedur e refused Completed 201104/14/2014 RECORDED 05/01/20 12 9:48AM BY KATY CATALAN I ANNOTATI ON/ADDEN DUM Not Available [facility] 4 14:17:46 Speciali zed medical examinat ion Completed 201104/14/2014 RECORDED 05/01/20 12 9:48AM BY KATY CATALAN I ANNOTATI ON/ADDEN DUM Not Available [facility] 4 14:17:46 Screenin g for malignan t neoplasm of cervix Completed 201104/14/2014 RECORDED 05/01/20 12 9:48AM BY KATY CATALAN I ANNOTATI ON/ADDEN DUM Not Available [facility] 4 14:17:46 Chronic sinusiti s 72541321 Completed 201104/14/2014 RECORDED 05/01/20 12 9:48AM BY KATY CATALAN I ANNOTATI ON/ADDEN DUM Not Available [facility] 4 14:17:46 Abdomina l pain 24228601 Completed 08/08/ 2012 05/04/2014 IMPRESSI ON: PT WITH INTERMIT TENT ABDO [...] BY SIXTO GALVEZATI ON/ADDEN DUM Not Available [facility] 4 06:38:55 Dizzines s and giddines s 227832263 Completed 201105/04/2014 RECORDED 05/01/20 12 9:48AM BY SIXTO GALVEZATI ON/ADDEN DUM Not Available [facility] 4 06:38:55 Dysmenor seng 350172575 Completed 201105/04/2014 RECORDED 05/01/20 12 9:48AM BY SIXTO GALVEZATI ON/ADDEN DUM Not Available [facility] 4 06:38:55 Respirat ory finding Completed 201105/04/2014 RECORDED 05/01/20 12 9:48AM BY SIXTO GALVEZATI ON/ADDEN DUM Not Available [facility] 4 06:38:55 Blood chemistr y outside referenc e range 622149301 Completed 201105/04/2014 RECORDED 05/01/20 12 9:48AM BY SIXTO GALVEZATI ON/ADDEN DUM Not Available [facility] 4 06:38:55 Disorder of hair AND/OR hair follicle Completed 201105/04/2014 RECORDED 05/01/20 12 9:48AM BY SIXTO GALVEZATI ON/ADDEN DUM Not Available [facility] 4 06:38:55 Well child 405293172 Completed 201105/04/2014 RECORDED 05/01/20 12 9:48AM BY SIXTO GALVEZATI ON/ADDEN DUM Not Available [facility] 4 06:38:55 Onychomy cosis due to dermatop hyte 301738046 Completed 201105/04/2014 RECORDED 05/01/20 12 9:48AM BY SIXTO GALVEZATI ON/ADDEN DUM Not Available [facility] 4 06:38:56 Knee pain Completed 201105/04/2014 RECORDED 05/01/20 12 9:48AM BY SIXTO GALVEZATI ON/ADDEN DUM Not Available [facility] 4 06:38:56 Posterio r rhinorrh ea 39919292 Completed 201105/04/2014 RECORDED 05/01/20 12 9:48AM BY SIXTO GALVEZATI ON/ADDEN DUM Not Available [facility] 4 06:38:56 Procedur e refused Completed 201105/04/2014 RECORDED 05/01/20 12 9:48AM BY SIXTO GALVEZATI ON/ADDEN DUM Not Available [facility] 4 06:38:56 Speciali obey medical examinat ion Completed 201105/04/2014 RECORDED 05/01/20 12 9:48AM BY SIXTO GALVEZATI ON/ADDEN DUM Not Available [facility] 4 06:38:56 Screenin g for malignan t neoplasm of cervix Completed 201105/04/2014 RECORDED 05/01/20 12 9:48AM BY SIXTO GALVEZATI ON/ADDEN DUM Not Available [facility] 4 06:38:56 Chronic sinusiti s 03827210 Completed 201105/04/2014 RECORDED 05/01/20 12 9:48AM BY SIXTO GALVEZATI ON/ADDEN DUM Not Available [facility] 4 06:38:56 Diarrhea 78851508 Completed 201104/14/2014 IMPRESSI ON: THIS SEEMS LIKE IBS GIVEN HER SX AND THE AMOUNT OF TIME SHE HAS HAD SX. DOUBT INFECTIO US BECAUSE OF THE DURATION . WILL CHECK STOOL STUDIES NEXT VISIT IF STILL SYMPTOMA TIC.; RECORDED 07/08/20 12 11:19AM BY SIXTO GALVEZATI ON/ADDEN DUM Not Available [facility] 4 14:17:45 Irritabl e bowel syndrome 95186144 Completed 201104/14/2014 RECORDED 07/08/20 12 11:19AM BY SIXTO GALVEZATI ON/ADDEN DUM Not Available [facility] 4 14:17:46 Diarrhea 26129321 Completed 201105/04/2014 IMPRESSI ON: THIS SEEMS LIKE IBS GIVEN HER SX AND THE AMOUNT OF TIME SHE HAS HAD SX. DOUBT INFECTIO US BECAUSE OF THE DURATION . WILL CHECK STOOL STUDIES NEXT VISIT IF STILL SYMPTOMA TIC.; RECORDED 07/08/20 12 11:19AM BY SIXTO GALVEZATI ON/ADDEN DUM Not Available [facility] 4 06:38:55 Irritabl e bowel syndrome 27381009 Completed 201105/04/2014 RECORDED 07/08/20 12 11:19AM BY SIXTO GALVEZATI ON/ADDEN DUM Not Available [facility] 4 06:38:56 Primary malignan t neoplasm of uterine cervix 649087173 Completed 201204/14/2014 AGE 17, LASER REMOVAL; RECORDED 10/08/19 13 11:20AM BY SIXTO GALVEZATI ON/ADDEN DUM Not Available [facility] 4 14:17:46 Acute upper respirat ory infectio n 55626072 Completed 201204/14/2014 RECORDED 10/08/19 13 11:24AM BY SIXTO GALVEZATI ON/ADDEN DUM Not Available [facility] 4 14:17:47 Wheezing 88216388 Completed 201204/14/2014 IMPRESSI ON: NO H/O ASTHMA. SHE WILL CALL IF SHE NEEDS TO USE THE PROAIR DAILY.; RECORDED 10/08/19 13 11:24AM BY SIXTO GALVEZATI ON/ADDEN DUM Not Available [facility] 4 14:17:47 Primary malignan t neoplasm of uterine cervix 562179060 Completed 201205/04/2014 AGE 17, LASER REMOVAL; RECORDED 10/08/19 13 11:20AM BY SIXTO GALVEZATI ON/ADDEN DUM Not Available [facility] 4 06:38:56 Acute upper respirat ory infectio n 34091470 Completed 201205/04/2014 RECORDED 10/08/19 13 11:24AM BY SIXTO GALVEZATI ON/ADDEN DUM Not Available [facility] 4 06:38:56 Wheezing 16849775 Completed 201205/04/2014 IMPRESSI ON: NO H/O ASTHMA. SHE WILL CALL IF SHE NEEDS TO USE THE PROAIR DAILY.; RECORDED 10/08/19 13 11:24AM BY ANTHONY GALVEZ ON/ADDEN DUM Not Available [facility] 4 06:38:56 Type 2 diabetes mellitus without complica tion 717999754 Completed 201204/14/2014 IMPRESSI ON: NO CHANGES IN MGMT; CHECK LABS AND ADJUST IF NEEDED.; RECORDED 07/15/20 13 2:53PM BY AINSLEY MONSIVAIS MA, ANNOTATI ON/ADDEN DUM Deja Murphy PA-C [address] [facility] [address], [place], [address] , [facility] 7 13:54:58 Type 2 diabetes mellitus without complica tion 729416639 Completed 201205/04/2014 IMPRESSI ON: NO CHANGES IN MGMT; CHECK LABS AND ADJUST IF NEEDED.; RECORDED 07/15/20 13 2:53PM BY AINSLEY MONSIVAIS MA, ANNOTATI ON/ADDEN DUM Deja Murphy PA-C [address], [place], [address] , [facility] 7 13:54:58 Screenin g for malignan t neoplasm of breast Completed 201304/14/2014 RECORDED 12/24/19 14 8:19AM BY ANTHONY GALVEZ ON/ADDEN DUM Not Available [facility] 4 14:17:45 Tobacco dependen ce syndrome 24325991 Completed 201304/14/2014 RECORDED 12/24/19 14 8:19AM BY KATY CATALAN I ANNOTATI ON/ADDEN DUM Not Available [facility] 4 14:17:45 Adult health examinat ion Completed 201304/14/2014 RECORDED 12/24/19 14 8:19AM BY KATY CATALAN I ANNOTATI ON/ADDEN DUM Not Available [facility] 4 14:17:45 Immuniza tion refused Completed 201304/14/2014 RECORDED 12/24/19 14 8:19AM BY KATY CATALAN I ANNOTATI ON/ADDEN DUM Not Available [facility] 4 14:17:46 Screenin g for malignan t neoplasm of breast Completed 201305/04/2014 RECORDED 12/24/19 14 8:19AM BY KATY CATALAN I ANNOTATI ON/ADDEN DUM Not Available [facility] 4 06:38:55 Tobacco dependen ce syndrome 64633865 Completed 201305/04/2014 RECORDED 12/24/19 14 8:19AM BY KATY CATALAN I ANNOTATI ON/ADDEN DUM Not Available [facility] 4 06:38:55 Adult health examinat ion Completed 201305/04/2014 RECORDED 12/24/19 14 8:19AM BY KATY CATALAN I ANNOTATI ON/ADDEN DUM Not Available [facility] 4 06:38:55 Immuniza tion refused Completed 201305/04/2014 RECORDED 12/24/19 14 8:19AM BY KATY CATALAN I ANNOTATI ON/ADDEN DUM Not Available [facility] 4 06:38:56 Laborato ry procedur e performe d 813900811 Completed 201305/26/2014 RECORDED 04/02/20 14 2:51PM BY NATA RIVERS, LAB REQ Scooter Amador MD [address] [address], [place], [address] , [facility] 4 12:00:02 Chronic obstruct meri pulmonar y disease 00488990 Active 2016 Rubén Murphy PA-C [address] [address], [place], [address] , [facility] 7 13:22:11 Uncontro lled type 2 diabetes mellitus 183758778 Active 2016 Deja Murphy PA-C [address] [address], [place], [address] , [facility] 7 13:55:08 Hyperlip idemia 14827547 Active 2020 Scooter Amador MD [address] [address], [place], [address] , [facility] 1 19:28:56 Problem Notes None recorded. Procedures Surgical History Date Name Laterality Status Provider Name and Address Organization Details Recorded Time 3 Diabetic Foot Exam (Monofilament) completed Scooter Amador MD [address], [address], [facility] 04/24/2023 15:00:38 2 Diabetic Foot Exam (Monofilament) completed Scooter Amador MD [address], [address], [facility] 12/13/2021 14:39:14 1 Diabetic Foot Exam (Monofilament) completed Scooter Amador MD [address], [address], [facility] 02/07/2021 15:13:59 1 Diabetic Foot Exam (Monofilament) completed Scooter Amador MD [address], [address], [facility] 10/15/2020 13:38:53 0 Diabetic Foot Exam (Monofilament) completed Scooter Amador MD [address] [address], [place], [address], [facility] 04/14/2020 17:17:01 9 Diabetic Foot Exam (Monofilament) completed Scooter Amador MD [address] [address], [place], [address], [facility] 03/20/2019 15:31:43 8 Diabetic Foot Exam (Monofilament) completed Scooter Amador MD [address] [address], [place], [address], [facility] 02/28/2018 07:11:43 6 Most Recent Mammogram completed Magdakris Marcus [facility] 01/07/2016 08:42:52 6 Mammogram Screening completed Magda Marcus [facility] 01/07/2016 08:42:52 5 Date of Last Pap Smear completed Luis Alberto Smith [facility] 03/22/2017 16:18:21 4 Nebulizer tx completed MARIE Pfeiffer [address] [address], [place], [address], [facility] 07/15/2014 14:31:36 Other completed Miryam boone [facility] 07/15/2014 14:13:40 Imaging Results None recorded. Procedure Notes None recorded. Medical Equipment None Reported. Allergies Allergen ID Allergen Name Allergen Category Reaction Reaction Severity Criticality Documentation Date Start Date Code Code System Note Provider Name and Address Organization Details Recorded Time 25902 Actos medicatio n edema moderate Not available 06/29/2021 82820 2 RxNorm Scooter dean MD [address] [address], [place], [address], [facility] 1 09:25:21 36865 Farxiga medicatio n respirato ry distress Not available Not available 02/25/2025 12982 72 RxNorm Erica Olsen LPN null, [facility] 5 13:19:33 Medications Name Sig Start [...] 2:24PM BY LUIS ALBERTO SMITH, SIXTOATI ON/ADDEN DUM; Not Available Not Available Not [...] release 24 hr 1 TABLET DAILY AT BETIME active Not Available Not Available No t [...] Seems like it was replaced by [facility] Not Available Not Available Not [...] RECORDED 03/19/20 12 5:08PM BY ANTHONY TUCKER ON/LYRIC DUM; Not Available Not Available Not Available fiber 1-3 TIMES DAILY 02/02 completed RECORDED 02/03/20 10 2:23PM BY ANTHONY TUCKER ON/ADDDEEPIKA DUM; Not Available [...] Not Available Not Available Not Available FreeStyle Jean kit DAILY 07/03 completed RECORDED 07/15/20 13 [...] Updated DateTime 5 165.74 cm 33.4 kg/m2 26926.6 6 g 108 /min 97 % 97.8 [degF] 145/82 mm[Hg] 124/82 mm[Hg] Chuyita Redding [facility] 5 13:37:28 Social History Question Answer Notes LastModified by Organizat ion Details LastModified Time Tobacco Smoking Status Current Every Day Smoker Not Available [facility] 07/27/2020 03:36:37 Do You Have An Advance Directive? Yes [id number] Information not available 07/27/2020 Is Blood Transfusion Acceptable In An Emergency? Yes [id number] Information not available 07/27/2020 What Is Your Level Of Caffeine Consumption? Moderate [id number] Information not available 07/27/2020 How Much Tobacco Do You Chew? None [id number] Information not available 07/27/2020 What Type Of Diet Are You Following? DIABETIC [id number] Information not available 07/27/2020 Which Illicit Or Recreational Drugs Have You Used? No [id number] Information not available 07/27/2020 Education 8 Information n ot available 05/26/2014 Are There Any Guns Present In Your Home? No [id number] Information not available 07/27/2020 Hard Of Hearing [...] Material From Your Doctor Or Pharmacy? Never [email or web address] Information not available 08/10/2015 Have You Served [...] Or Greater Than 100 Degrees Fahrenheit? No [email or web address] Information not available 04/13/2020 Are You Or Anyone In Your Household A Health Care Provider Or Emergency Responder? No [email or web address] Information not available 04/13/2020 To The Best Of Your Knowledge Have You Been In Close Proximity To Any Individual Who Tested Positive For COVID-19? No [email or web address] Information not available 04/13/2020 Have You Recently Traveled To A COVID-19 High Risk Area Or Gathering In The Last 10 Days? No [email or web address] Information not available 10/14/2020 What Was The Date Of Your Most Recent Tobacco Screening? 01/22/2025 Information not available 01/22/2025 How Many Children Do You Have? 2 [id number] Information not available 07/27/2020 What Is Your Current Pack Years? 30ormorepacky ears [id number] Information not available 07/27/2020 Do You Use Protection During Sex? No [id number] Information not available 07/27/2020 Seat Belts Used Routinely Yes [email or web address] Information not available 08/10/2015 Are You Sexually Active? Yes [id number] Information not available 07/27/2020 Smoke Alarm In Home Yes [email or web address] Information not available 08/10/2015 At What Age Did You Start Smoking Tobacco? 17 [id number] Information not available 07/27/2020 Are You Passively Exposed To Smoke? Yes [email or web address] Information no t available 07/15/2020 How Much Tobacco Do You Smoke? 2 PPD Information not available 01/22/2025 General Stress Level High Information not available 05/26/2014 Do You Use Sunscreen Routinely? Yes [id number] Information not available 07/27/2020 How Many Years [...] is your level of alcohol consumption? Occasional [id number] Information not available 07/27/2020 Do you or have you ever used smokeless tobacco? Never used smokeless tobacco [id number] Information not available 07/27/2020 Are you currently employed? No [id number] Information not available 07/27/2020 Are you able to walk independently without assistance or assistive devices? [email or web address] Information not available 12/13/2021 Are you able to care for yourself independently? No [id number] Information not available 07/27/2020 Do you or have you ever used e-cigarettes or vape? Never used electronic cigarettes [id number] Information not available 07/27/2020 What is your exercise level? Occasional [id number] Information not available 07/27/2020 Mental Status None recorded. Family History Relationship Description Onset Age of this Age Resolved Age Notes LastModified by Organization Details LastModified Time Mother History of malignant neoplasm [email or web address] Not available 08/10 14:34:22 Maternal Grandfather Hypercholest bernadette ngozi Not available 08/10 14:34:22 Father Harmful pattern of use of alcohol [email or web address] Not available 05/27 15:27:47 Medical History No [...] mcg/0.3 mL dose 021 completed GM Vazquez [facility] 06/28/2021 15:21:04 COVID-19, mRNA, LNP-S, PF, 30 mcg/0.3 mL dose 021 completed GM Vazquez [facility] 06/28/2021 15:21:23 Td (adult), 2 Lf tetanus toxoid, preservative free, adsorbed 019 completed Not Available [facility] 10/11/2019 02:21:30 Influenza, split virus, quadrivalent, PF 020 cancelled patient objection GM Richards, [facility] 07/15/2020 14:31:12 Influenza, split virus, trivalent, preservative 008 completed Not Available [facility] 04/07/2014 14:07:42 Tdap 008 completed Not Available [facility] 04/07/2014 14:07:42 Influenza, split virus, trivalent, preservative 010 completed Not Available [facility] 04/07/2014 14:07:42 Influenza, split virus, trivalent, preservative 011 completed Not Available [facility] 04/07/2014 14:07:43 Past Encounters Encounter ID Performer Location Encounter Start Date Encounter Closed Date Diagnosis/Indication Diagnosis SNOMED-CT Code Diagnosis ICD10 Code Diagnosis IMO Codes Diagnosis Note [id number] Scooter Amador MD Main Office [address] [facility] [address] [facility] [place] [id number] 06/11/2025 13:06:00 06/11/2025 14:03:22 Chronic vertigo [id number] 9105 R42 [id number] Chronic ot itis externa 64786648 H60.312 [id number] Uncontroll ed type 2 diabetes mellitus 960077890 E11.65 She was not able to tolerate the Actos because of ankle swelling, nausea and bloating. She stopped this and her SE's resolved. . We added jardiance and tradjenta and her A1C came down from 9.3 to 7.2. But the jardiance is no longer on formulary. She also stopped the tradjenta for unclear reasons but will restart it. Hyperlipidemia 68715075 E78.5 Last LDL at goal. Will check fasting lipid level. Health Concerns Section Related Observation LastModified by Organization Detai ls LastModified Time None Recorded Concern Status LastModified by Organization Details LastModified Time None Recorded Payers Encounter Date Sequence Insurance Name Policy Number Policy Chopra Covered Member ID Chopra Member ID Guarantor Name 06/11/2025 2 [place] [facility] Aura Hood [id number] Aura Hood 06/11/2025 1 [place] [employer] Aura Hood [id number] Aura Hood Notes Date Note Type Note Provider Name and Address Organization Details Recorded Time 06/11/2025 text/html ROS as noted in the HPI [...] more than a year. Scooter Amador MD [address] [address], [place], [address], [facility] 06/11/2025 18:08:43 OBGyn Episode No OBEpisode recorded.
== END 2025-08-18 15:29 | disposition home or self-care (01) ==
LOC: HO.LABR 15:28
PROVIDERS: PCP Internal Medicine
DX: Z79.899 Other long term (current) drug therapy (principal)
CPT/HCPCS: 36415; 85025

== ENCOUNTER 2025-09-15 16:36 | Outpatient (REF) | payer MEDICARE, MEDICAID, SELFPAY ==
[2025-09-15 16:51] LABS: MANUAL DIFF FLAG NO
--- OUTSIDE RECORDS SUMMARY | 2025-09-15 17:10 | XMS_ITS | Data Portability ---
Author Organization [facility], Main Office Address [address] [facility] [facility] [place] [address] Care Team Providers Care Electrification Adviser Name Role Phone SCOOTER AMADOR Primary Care Provider VIVI COON Psychologist CIERA ROCKWELL Referring Provider [phone] Assessment Encounter Date Assessment Date Assessment LastModified by Organization Details LastModified Time 01/22/2025 01/22/2025 This service was provided using telemedicine. Patient consented to telephone visit Patient was located at home in the [facility]. Provider was located in the office. [...] Go To The Location Of Their Choice, [id number] 06/11/2025 13:59:26 CMP, serum or plasma 2024 [...] 2024 025 OMAR [facility], [address], [place], [address], 06/11/2025 13:59:27 LDL, direct , serum 2024 025 OMAR [facility], [address], [place], [address], 06/11/2025 13:59:27 hemogl obin A1C, finger stick 2023 024 [email or web address] In-Office Order, Internal Use Only DO Not Attach Compendium DO Not Attach Compendium, Do Not Delete/merge, [id number] 02/27/2024 15:14:28 microa lbumin , urine 2023 024 OMAR [facility] (Centralized Electronic Ordering - All Locations), Patient Can Go To The Location Of Their Choice, 02/28/2024 12:06:20 LDL, direct , serum 2023 024 OMAR [facility], [address], [place], [address], 02/28/2024 12:06:19 HDL choles terol, serum 2023 024 [email or web address] [facility] (Centralized Electronic Ordering - All Locations), Patient Can Go To The Location Of Their Choice, 09/25/2024 09:12:13 CBC w/ auto diff 2023 024 OMAR [facility], [address], [place], [address], 02/28/2024 12:06:16 BMP, serum or plasma 2023 024 OMAR [facility], [address], [place], [address], 02/28/2024 12:06:17 TSH, ultra- sensit meri, serum 2023 024 OMAR [facility], [address], [place], [address], 02/28/2024 12:06:21 Referral vestib ular therap y referr al - Chroni c vertig o 2024 025 [email or web address] [facility] [place] - [facility] , [address] [facility] , [place], [address], 06/11/2025 14:03:22 Procedures None record ed. Surgeries None record ed. Imaging None record ed. Medication Orders neomyc in-vinicio ymyxin -hydro amanuel 3.5 mg-10, 000 unit/m L-1 % ear drops, susp 2024 025 [id number], [address], [place], [id number], 06/11/2025 13:57:14 amoxic illin 875 mg-pot assium clavul anate 125 mg tablet 2024 025 [facility], [address], [place], [id number], 03/11/2025 05:01:49 hydroc ortiso ne 2.5 % topica l cream 2024 025 [id number], [address], [place], [id number], 02/25/2025 13:34:43 Vitami n C 250 mg tablet 2024 025 [facility] #49755, [address], [place], [id number], 01/24/2025 10:37:01 Tradje nta 5 mg tablet 2023 024 [facility] #35660, [address], [place], [id number], 02/27/2024 15:14:32 Patient TargetsNo targets recorded. Patient Instructions Encounter Date Encounter Id Patient Instructions Last Modified By Organization Details Last Modified Time 02/27/2024 [id number] schizophrenia: care instructions [email or web address] Not available 02/27/2024 18:37:24 type 2 diabetes: care instructions [email or web address] Not available 02/27/2024 15:14:26 01/20/2025 [id number] I have reviewed the note and agree with the assessment and plan of care. [email or web address] Not available 01/20/2025 15:45:28 01/22/2025 [id number] deciding about using medicines to quit smoking [...] instructions [email or web address] Not available 01/24/2025 10:58:42 06/11/2025 [id number] type 2 diabetes: care instructions [email or web address] Not [...] x10e3 /uL 3.4-10 .8 Not Available [facility] ([facility]) [address] [facility], [place], [address], 02/28/2024 12:06:16 02/27/20 24 02/28/2024 CBC WITH DIFFE RENTI AL/PL ATELE T RBC 5.03 x10e6 /uL 3.77-5 .28 Not Available [facility] ([facility]) [address] [place], [address], 02/28/2024 12:06:16 02/27/20 24 02/28/2024 CBC WITH DIFFE RENTI AL/PL ATELE T hemoglobin 15.3 g/dL 11.1-1 5.9 Not Available [facility] ([facility]) [address] [facility], [place], [address], 02/28/2024 12:06:16 02/27/20 24 02/28/2024 CBC WITH DIFFE RENTI AL/PL ATELE T hematocrit 46.4 % 34.0-4 6.6 Not Available [facility] ([facility]) [address] [place], [address], 02/28/2024 12:06:16 02/27/20 24 02/28/2024 CBC WITH DIFFE RENTI AL/PL ATELE T MCV 92 fL 79-97 Not Available [facility] ([facility]) [address] [place], [address], 02/28/2024 12:06:16 02/27/20 24 02/28/2024 CBC WITH DIFFE RENTI AL/PL ATELE T MCH 30.4 pg 26.6-3 3.0 Not Available [facility] ([facility]) [address] [place], [address], 02/28/2024 12:06:16 02/27/20 24 02/28/2024 CBC WITH DIFFE RENTI AL/PL ATELE T MCHC 33.0 g/dL 31.5-3 5.7 Not Available [facility] ([facility]) [address] [facility], [place], [address], 02/28/2024 12:06:16 02/27/20 24 02/28/2024 CBC WITH DIFFE RENTI AL/PL ATELE T RDW 13.5 % 11.7-1 5.4 Not Available [facility] ([facility]) [address] [facility], [place], [address], 02/28/2024 12:06:16 02/27/20 24 02/28/2024 CBC WITH DIFFE RENTI AL/PL ATELE T platelets 222 x10e3 /uL 150-45 0 Not Available [facility] ([facility]) [address] [facility], [place], [address], 02/28/2024 12:06:16 02/27/20 24 02/28/2024 CBC WITH DIFFE RENTI AL/PL ATELE T neutrophils 47 % not estab. Not Available [facility] ([facility]) [address] [facility], [place], [address], 02/28/2024 12:06:16 02/27/20 24 02/28/2024 CBC WITH DIFFE RENTI AL/PL ATELE T lymphs 44 % not estab. Not Available [facility] ([facility]) [address] [facility], [place], [address], 02/28/2024 12:06:16 02/27/20 24 02/28/2024 CBC WITH DIFFE RENTI AL/PL ATELE T monocytes 8 % not estab. Not Available [facility] ([facility]) [address] [facility], [place], [address], 02/28/2024 12:06:16 02/27/20 24 02/28/2024 CBC WITH DIFFE RENTI AL/PL ATELE T eos 1 % not estab. Not Available [facility] ([facility]) [address] [place], [address], 02/28/2024 12:06:16 02/27/20 24 02/28/2024 CBC WITH DIFFE RENTI AL/PL ATELE T basos 0 % not estab. Not Available [facility] ([facility]) [address] [facility], [place], [address], 02/28/2024 12:06:16 02/27/20 24 02/28/2024 CBC WITH DIFFE RENTI AL/PL ATELE T immature cells CLINICAL SOCIAL WORK AIDE Not Available [facility] ([facility]) [address] [place], [address], 02/28/2024 12:06:16 02/27/20 24 02/28/2024 CBC WITH DIFFE RENTI AL/PL ATELE T neutrophils (absolute) 4.4 x10e3 /uL 1.4-7. 0 Not Available [facility] ([facility]) [address] [place], [address], 02/28/2024 12:06:16 02/27/20 24 02/28/2024 CBC WITH DIFFE RENTI AL/PL ATELE T lymphs (absolute) 4.2 x10e3 /uL 0.7-3. 1 above high normal Not Available [facility] ([facility]) [address] [place], [address], 02/28/2024 12:06:16 02/27/20 24 02/28/2024 CBC WITH DIFFE RENTI AL/PL ATELE T monocytes(ab solute) 0.7 x10e3 /uL 0.1-0. 9 Not Available [facility] ([facility]) [address] [place], [address], 02/28/2024 12:06:16 02/27/20 24 02/28/2024 CBC WITH DIFFE RENTI AL/PL ATELE T eos (absolute) 0.1 x10e3 /uL 0.0-0. 4 Not Available [facility] ([facility]) [address] [facility], [place], [address], 02/28/2024 12:06:16 02/27/20 24 02/28/2024 CBC WITH DIFFE RENTI AL/PL ATELE T baso (absolute) 0.0 x10e3 /uL 0.0-0. 2 Not Available [facility] ([facility]) [address] [facility], [place], [address], 02/28/2024 12:06:16 02/27/20 24 02/28/2024 CBC WITH DIFFE RENTI AL/PL ATELE T immature granulocytes 0 % not estab. Not Available [facility] ([facility]) [address] [facility], [place], [address], 02/28/2024 12:06:16 02/27/20 24 02/28/2024 CBC WITH DIFFE RENTI AL/PL ATELE T immature grans (abs) 0.0 x10e3 /uL 0.0-0. 1 Not Available [facility] ([facility]) [address] [facility], [place], [address], 02/28/2024 12:06:16 02/27/20 24 02/28/2024 CBC WITH DIFFE RENTI AL/PL ATELE T NRBC CLINICAL SOCIAL WORK AIDE Not Available [facility] ([facility]) [address] [facility], [place], [address], 02/28/2024 12:06:16 02/27/20 24 02/28/2024 CBC WITH DIFFE RENTI AL/PL ATELE T hematology comments: CLINICAL SOCIAL WORK AIDE Not Available [facility] ([facility]) [address] [facility], [place], [address], 02/28/2024 12:06:16 02/27/20 24 02/28/2024 BASIC METAB OLIC PANEL (8) glucose 151 mg/dL 70-99 above high normal Not Available [facility] ([facility]) [address] [facility] [place], [address], 02/28/2024 12:06:17 02/27/20 24 02/28/2024 BASIC METAB OLIC PANEL (8) BUN 6 mg/dL 6-24 Not Available [facility] ([facility]) [address] [facility] [place], [address], 02/28/2024 12:06:17 02/27/20 24 02/28/2024 BASIC METAB OLIC PANEL (8) creatinine 0.51 mg/dL 0.57-1 .00 below low normal Not Available [facility] ([facility]) [address] [facility] [place], [address], 02/28/2024 12:06:17 02/27/20 24 02/28/2024 BASIC METAB OLIC PANEL (8) eGFR 114 mL/mi n/1.7 3 >59 Not Available [facility] ([facility]) [address] [facility] [place], [address], 02/28/2024 12:06:17 02/27/20 24 02/28/2024 BASIC METAB OLIC PANEL (8) BUN/creatini ne ratio 12 9-23 Not Available [facility] ([facility]) [address] [place], [address], 02/28/2024 12:06:17 02/27/20 24 02/28/2024 BASIC METAB OLIC PANEL (8) sodium 141 mmol/ L 134-14 4 Not Available [facility] ([facility]) [address] [place], [address], 02/28/2024 12:06:17 02/27/20 24 02/28/2024 BASIC METAB OLIC PANEL (8) potassium 4.6 mmol/ L 3.5-5. 2 Not Available [facility] ([facility]) [address] [place], [address], 02/28/2024 12:06:17 02/27/20 24 02/28/2024 BASIC METAB OLIC PANEL (8) chloride 98 mmol/ L 96-106 Not Available [facility] ([facility]) [address] [place], [address], 02/28/2024 12:06:17 02/27/20 24 02/28/2024 BASIC METAB OLIC PANEL (8) carbon dioxide, total 31 mmol/ L 20-29 above high normal Not Available [facility] ([facility]) [address] [facility] [place], [address], 02/28/2024 12:06:17 02/27/20 24 02/28/2024 BASIC METAB OLIC PANEL (8) calcium 9.8 mg/dL 8.7-10 .2 Not Available [facility] ([facility]) [address] [place] [place], [address], 02/28/2024 12:06:17 02/27/20 24 02/28/2024 LIPID PANEL cholesterol, total 178 mg/dL 100-19 9 Not Available [facility] ([facility]) [address] [facility], [place], [address], 02/28/2024 12:06:18 02/27/20 24 02/28/2024 LIPID PANEL triglyceride s 116 mg/dL 0-149 Not Available [facility] ([facility]) [address] [facility] [place], [address], 02/28/2024 12:06:18 02/27/20 24 02/28/2024 LIPID PANEL HDL cholesterol 96 mg/dL >39 Not Available [facility] ([facility]) [address] [place], [address], 02/28/2024 12:06:18 02/27/20 24 02/28/2024 LIPID PANEL VLDL cholesterol luke 20 mg/dL 5-40 Not Available [facility] ([facility]) [address] [facility], [place], [address], 02/28/2024 12:06:18 02/27/20 24 02/28/2024 LIPID PANEL LDL chol calc (nih) 62 mg/dL 0-99 Not Available [facility] ([facility]) [address] [facility], [place], [address], 02/28/2024 12:06:18 02/27/20 24 02/28/2024 LIPID PANEL comment: CLINICAL SOCIAL WORK AIDE Not Available [facility] ([facility]) [address] [facility], [place], [address], 02/28/2024 12:06:18 02/27/20 24 02/28/2024 LDL PETE STERO L (DIRE CT) LDL chol. (direct) 65 mg/dL 0-99 Not Available [facility] ([facility]) [address] [facility], [place], [address], 02/28/2024 12:06:19 02/27/20 24 02/28/2024 ALBUM IN, RANDO M URINE albumin, urine 13.2 ug/mL not estab. Not Available [facility] ([facility]) [address] [facility], [place], [address], 02/28/2024 12:06:20 02/27/20 24 02/28/2024 TSH RFX ON ABNOR MAL TO FREE T4 TSH 1.110 uIU/m L 0.450- 4.500 Not Available [facility] ([facility]) [address] [place], [address], 02/28/2024 12:06:20 02/27/20 24 02/27/2024 hemog lobin A1C, finge rstic k A1C 8.2 % 4-6 high Not Available In-Office Order Internal Use Only DO Not Attach Compendium DO Not Attach Compendium, Do Not Delete/merge, [id number] 02/27/2024 14:30:40 Result Notes None recorded. Problems Name Problem SNOMED Code Status Onset Date Resolution Date Notes Provider Name and Address Organization Details Recorded Time Allergic rhinitis 36060592 Active Scooter Amador MD [address] [address], [place], [address] , [facility] 5 17:55:35 Type 2 diabetes mellitus without complica tion 402015945 Completed 07/06/2017 Deja Murphy PA-C [address] [address], [place], [address] , [facility] 7 13:54:58 Malaise and fatigue 948954782 Completed 05/24/2017 Xi rodriguez, [facility] 7 09:53:48 Pure hypercho lesterol emia 496449960 Completed 10/31/2016 Scooter Amador MD [address] [address], [place], [address] , [facility] 7 14:03:55 Schizoph yanique 85660447 Active Stable on meds. Followed by psych Scooter Amador MD [address] [address], [place], [address] , [facility] 6 13:25:02 Tobacco dependen ce syndrome 98698127 Active Scooter Amador MD [address] [address], [place], [address] , [facility] 6 15:15:56 Type 2 diabetes mellitus 59586729 Completed 01/28/2015 Deja Murphy PA-C [address] [address], [place], [address] , [facility] 7 13:55:02 Cough 98266072 Completed 05/24/2017 Xi rodriguez, [facility] 7 09:53:54 Nasal congesti on 14602148 Completed 05/24/2017 Xi rodriguez, [facility] 7 09:53:58 Type 2 diabetes mellitus 10516101 Completed 07/06/2017 Deja Murphy PA-C [address] [facility] [address], [place], [address] , [facility] 7 13:55:02 Gynecolo gic examinat ion Active Scooter Amador MD [address] [facility] [address], [place], [address] , [facility] 5 06:59:59 Chest pain 82279469 Completed 05/24/2017 Xi rodriguez, [facility] 7 09:53:51 Urinary incontin ence 311093430 Completed 200704/14/2014 RESOLVED DATE: 04/23/20 08; RECORDED 04/23/20 08 10:15AM BY SCOOTER SILVA MD, ANNOTATI ON/ADDEN DUM Not Available [facility] 4 14:17:47 Urinary incontin ence 798788789 Completed 200705/04/2014 RESOLVED DATE: 04/23/20 08; RECORDED 04/23/20 08 10:15AM BY SCOOTER SILVA MD, ANNOTATI ON/ADDEN DUM Not Available [facility] 4 06:38:56 Cough 17245560 Completed 200704/14/2014 DATE: 08/06/20 08; IMPRESSI ON: W/ WHEEZING .; RECORDED 05/01/20 12 9:48AM BY KATY CATALAN I, ANNOTATI ON/ADDEN DUM Xi rodriguez, [facility] 7 09:53:54 Administ ration of bacteria l and viral vaccine Completed 200704/14/2014 RECORDED 08/06/20 08 2:05PM BY GM SEAMAN, OFFICE VISIT Not Available [facility] 4 14:17:46 Cough 78636098 Completed 200705/04/2014 DATE: 08/06/20 08; IMPRESSI ON: W/ WHEEZING .; RECORDED 05/01/20 12 9:48AM BY KATY CATALAN I, SIXTOATI ON/ADDEN DUM [facility] 09:53:54 Administ ration of bacteria l and viral vaccine Completed 200705/04/2014 RECORDED 08/06/20 08 2:05PM BY GM SEAMAN, OFFICE VISIT Not Available [facility] 4 06:38:56 Acute sinusiti s 12091394 Completed 200804/14/2014 RECORDED 01/13/20 09 10:58AM BY MIRYAM CELIS MA, ANNOTATI ON/ADDEN DUM Not Available [facility] 4 14:17:44 Eruption 448371836 Completed 200804/14/2014 RECORDED 01/13/20 09 10:58AM BY MIRYAM CELIS MA, ANNOTATI ON/ADDEN DUM Not Available [facility] 4 14:17:46 Acute sinusiti s 09894762 Completed 200805/04/2014 RECORDED 01/13/20 09 10:58AM BY MIRYAM CELIS MA, ANNOTATI ON/ADDEN DUM Not Available [facility] 4 06:38:55 Eruption 597341937 Completed 200805/04/2014 RECORDED 01/13/20 09 10:58AM BY MIRYAM CELIS MA, ANNOTATI ON/ADDEN DUM Not Available [facility] 4 06:38:56 Trichomo nal vulvovag initis 08991536 Completed 201004/14/2014 DATE: 03/02/20 11; RECORDED 05/01/20 12 9:48AM BY SIXTO GALVEZATI ON/ADDEN DUM Not Available [facility] 4 14:17:46 Trichomo nal vulvovag initis 51629776 Completed 201005/04/2014 DATE: 03/02/20 11; RECORDED 05/01/20 12 9:48AM BY SIXTO GALVEZATI ON/ADDEN DUM Not Available [facility] 4 06:38:56 Influenz a vaccine needed 49750694380 06 Completed 201004/14/2014 DATE: 06/09/20 11; RECORDED 05/01/20 12 9:48AM BY KATY CATALAN I ANNOTATI ON/ADDEN DUM Not Available [facility] 4 14:17:45 Influenz a vaccine needed 57910078934 06 Completed 201005/04/2014 DATE: 06/09/20 11; RECORDED 05/01/20 12 9:48AM BY SIXTO GALVEZATI ON/ADDEN DUM Not Available [facility] 4 06:38:55 Abdomina l pain 85556348 Completed 201104/14/2014 IMPRESSI ON: PT WITH INTERMIT [...] BY SIXTO GALVEZATI ON/ADDEN DUM Not Available [facility] 4 14:17:44 Dizzines s and giddines s 570695531 Completed 201104/14/2014 RECORDED 05/01/20 12 9:48AM BY ANTHONY GALVEZ ON/ADDEN DUM Not Available [facility] 4 14:17:45 Dysmenor seng 673340488 Completed 201104/14/2014 RECORDED 05/01/20 12 9:48AM BY SIXTO GALVEZATI ON/ADDEN DUM Not Available [facility] 4 14:17:45 Respirat ory finding Completed 201104/14/2014 RECORDED 05/01/20 12 9:48AM BY SIXTO GALVEZATI ON/ADDEN DUM Not Available [facility] 4 14:17:45 Blood chemistr y outside referenc e range 435692591 Completed 201104/14/2014 RECORDED 05/01/20 12 9:48AM BY SIXTO GALVEZATI ON/ADDEN DUM Not Available [facility] 4 14:17:45 Disorder of hair AND/OR hair follicle Completed 201104/14/2014 RECORDED 05/01/20 12 9:48AM BY SIXTO GALVEZATI ON/ADDEN DUM Not Available [facility] 4 14:17:45 Well child 766219762 Completed 201104/14/2014 RECORDED 05/01/20 12 9:48AM BY SIXTO GALVEZATI ON/ADDEN DUM Not Available [facility] 4 14:17:45 Onychomy cosis due to dermatop hyte 869719569 Completed 201104/14/2014 RECORDED 05/01/20 12 9:48AM BY ANTHONY GALVEZ ON/ADDEN DUM Not Available [facility] 4 14:17:46 Knee pain Completed 201104/14/2014 RECORDED 05/01/20 12 9:48AM BY SIXTO GALVEZATI ON/ADDEN DUM Not Available [facility] 4 14:17:46 Posterio r rhinorrh ea 24531138 Completed 201104/14/2014 RECORDED 05/01/20 12 9:48AM BY ANTHONY GALVEZ ON/ADDEN DUM Not Available [facility] 4 14:17:46 Procedur e refused Completed 201104/14/2014 RECORDED 05/01/20 12 9:48AM BY SIXTO GALVEZATI ON/ADDEN DUM Not Available [facility] 4 14:17:46 Speciali zed medical examinat ion Completed 201104/14/2014 RECORDED 05/01/20 12 9:48AM BY ANTHONY GALVEZ ON/ADDEN DUM Not Available [facility] 4 14:17:46 Screenin g for malignan t neoplasm of cervix Completed 201104/14/2014 RECORDED 05/01/20 12 9:48AM BY KATY CATALAN I ANNOTATI ON/ADDEN DUM Not Available [facility] 4 14:17:46 Chronic sinusiti s 15224396 Completed 201104/14/2014 RECORDED 05/01/20 12 9:48AM BY KATY CATALAN I ANNOTATI ON/ADDEN DUM Not Available [facility] 4 14:17:46 Abdomina l pain 82856139 Completed 201105/04/2014 IMPRESSI ON: PT WITH INTERMIT [...] BY SIXTO GALVEZATI ON/ADDEN DUM Not Available [facility] 4 06:38:55 Dizzines s and giddines s 041677296 Completed 201105/04/2014 RECORDED 05/01/20 12 9:48AM BY SIXTO GALVEZATI ON/ADDEN DUM Not Available [facility] 4 06:38:55 Dysmenor seng 873537956 Completed 201105/04/2014 RECORDED 05/01/20 12 9:48AM BY SIXTO GALVEZATI ON/ADDEN DUM Not Available [facility] 4 06:38:55 Respirat ory finding Completed 201105/04/2014 RECORDED 05/01/20 12 9:48AM BY KATY CATALAN I ANNOTATI ON/ADDEN DUM Not Available [facility] 4 06:38:55 Blood chemistr y outside referenc e range 660207880 Completed 201105/04/2014 RECORDED 05/01/20 12 9:48AM BY SIXTO GALVEZATI ON/ADDEN DUM Not Available [facility] 4 06:38:55 Disorder of hair AND/OR hair follicle Completed 201105/04/2014 RECORDED 05/01/20 12 9:48AM BY SIXTO GALVEZATI ON/ADDEN DUM Not Available [facility] 4 06:38:55 Well child 915330336 Completed 201105/04/2014 RECORDED 05/01/20 12 9:48AM BY SIXTO GALVEZATI ON/ADDEN DUM Not Available [facility] 4 06:38:55 Onychomy cosis due to dermatop hyte 940636273 Completed 201105/04/2014 RECORDED 05/01/20 12 9:48AM BY SIXTO GALVEZATI ON/ADDEN DUM Not Available [facility] 4 06:38:56 Knee pain Completed 201105/04/2014 RECORDED 05/01/20 12 9:48AM BY SIXTO GALVEZATI ON/ADDEN DUM Not Available [facility] 4 06:38:56 Posterio r rhinorrh ea [id number] Completed 201105/04/2014 RECORDED 05/01/20 12 9:48AM BY SIXTO GALVEZATI ON/ADDEN DUM Not Available [facility] 4 06:38:56 Procedur e refused Completed 201105/04/2014 RECORDED 05/01/20 12 9:48AM BY SIXTO GALVEZATI ON/ADDEN DUM Not Available [facility] 4 06:38:56 Speciali zed medical examinat ion Completed 201105/04/2014 RECORDED 05/01/20 12 9:48AM BY SIXTO GALVEZATI ON/ADDEN DUM Not Available [facility] 4 06:38:56 Screenin g for malignan t neoplasm of cervix Completed 201105/04/2014 RECORDED 05/01/20 12 9:48AM BY ANTHONY GALVEZ ON/ADDEN DUM Not Available [facility] 4 06:38:56 Chronic sinusiti s 60326250 Completed 201105/04/2014 RECORDED 05/01/20 12 9:48AM BY ANTHONY GALVEZ ON/ADDEN DUM Not Available [facility] 4 06:38:56 Diarrhea 94776134 Completed 201104/14/2014 IMPRESSI ON: THIS SEEMS LIKE IBS GIVEN HER SX AND THE AMOUNT OF TIME SHE HAS HAD SX. DOUBT INFECTIO US BECAUSE OF THE DURATION . WILL CHECK STOOL STUDIES NEXT VISIT IF STILL SYMPTOMA TIC.; RECORDED 07/08/20 12 11:19AM BY ANTHONY GALVEZ ON/ADDEN DUM Not Available [facility] 4 14:17:45 Irritabl e bowel syndrome 58648647 Completed 201104/14/2014 RECORDED 07/08/20 12 11:19AM BY ANTHONY GALVEZ ON/ADDEN DUM Not Available [facility] 4 14:17:46 Diarrhea 52321983 Completed 201105/04/2014 IMPRESSI ON: THIS SEEMS LIKE IBS GIVEN HER SX AND THE AMOUNT OF TIME SHE HAS HAD SX. DOUBT INFECTIO US BECAUSE OF THE DURATION . WILL CHECK STOOL STUDIES NEXT VISIT IF STILL SYMPTOMA TIC.; RECORDED 07/08/20 12 11:19AM BY ANTHONY GALVEZ ON/ADDEN DUM Not Available [facility] 4 06:38:55 Irritabl e bowel syndrome 39814490 Completed 201105/04/2014 RECORDED 07/08/20 12 11:19AM BY ANTHONY GALVEZ ON/ADDEN DUM Not Available [facility] 4 06:38:56 Primary malignan t neoplasm of uterine cervix 452118323 Completed 201204/14/2014 AGE 17, LASER REMOVAL; RECORDED 10/08/19 13 11:20AM BY ANTHONY GALVEZ ON/ADDEN DUM Not Available [facility] 4 14:17:46 Acute upper respirat ory infectio n [id number] Completed 201204/14/2014 RECORDED 10/08/19 13 11:24AM BY SIXTO GALVEZATI ON/ADDEN DUM Not Available [facility] 4 14:17:47 Wheezing [id number] Completed 201204/14/2014 IMPRESSI ON: NO H/O ASTHMA. SHE WILL CALL IF SHE NEEDS TO USE THE PROAIR DAILY.; RECORDED 10/08/19 13 11:24AM BY SIXTO GALVEZATI ON/ADDEN DUM Not Available [facility] 4 14:17:47 Primary malignan t neoplasm of uterine cervix [id number] Completed 201205/04/2014 AGE 17, LASER REMOVAL; RECORDED 10/08/19 13 11:20AM BY SIXTO GALVEZATI ON/ADDEN DUM Not Available [facility] 4 06:38:56 Acute upper respirat ory infectio n [id number] Completed 201205/04/2014 RECORDED 10/08/19 13 11:24AM BY SIXTO GALVEZATI ON/ADDEN DUM Not Available [facility] 4 06:38:56 Wheezing 01404249 Completed 201205/04/2014 IMPRESSI ON: NO H/O ASTHMA. SHE WILL CALL IF SHE NEEDS TO USE THE PROAIR DAILY.; RECORDED 10/08/19 13 11:24AM BY SIXTO GALVEZATI ON/ADDEN DUM Not Available [facility] 4 06:38:56 Type 2 diabetes mellitus without complica tion [id number] Completed 201204/14/2014 IMPRESSI ON: NO CHANGES IN MGMT; CHECK LABS AND ADJUST IF NEEDED.; RECORDED 07/15/20 13 2:53PM BY AINSLEY MONSIVAIS MA, ANNOTATI ON/ADDEN DUM Deja Murphy PA-C [address] [facility] [address], [place], [address] , [facility] 7 13:54:58 Type 2 diabetes mellitus without complica tion 144776729 Completed 201205/04/2014 IMPRESSI ON: NO CHANGES IN MGMT; CHECK LABS AND ADJUST IF NEEDED.; RECORDED 07/15/20 13 2:53PM BY AINSLEY MONSIVAIS MA, ANNOTATI ON/ADDEN DUM Deja Murphy PA-C [address] [facility] [address], [place], [address] , [facility] 7 13:54:58 Screenin g for malignan t neoplasm of breast Completed 201304/14/2014 RECORDED 12/24/19 14 8:19AM BY KATY CATALAN I ANNOTATI ON/ADDEN DUM Not Available [facility] 4 14:17:45 Tobacco dependen ce syndrome 78432536 Completed 201304/14/2014 RECORDED 12/24/19 14 8:19AM BY KATY CATALAN I ANNOTATI ON/ADDEN DUM Not Available [facility] 4 14:17:45 Adult health examinat ion Completed 201304/14/2014 RECORDED 12/24/19 14 8:19AM BY KATY CATALAN I ANNOTATI ON/ADDEN DUM Not Available [facility] 4 14:17:45 Immuniza tion refused Completed 201304/14/2014 RECORDED 12/24/19 14 8:19AM BY SIXTO GALVEZATI ON/ADDEN DUM Not Available [facility] 4 14:17:46 Screenin g for malignan t neoplasm of breast Completed 201305/04/2014 RECORDED 12/24/19 14 8:19AM BY SIXTO GALVEZATI ON/ADDEN DUM Not Available [facility] 4 06:38:55 Tobacco dependen ce syndrome 53237052 Completed 201305/04/2014 RECORDED 12/24/19 14 8:19AM BY KATY CATALAN I ANNOTATI ON/ADDEN DUM Not Available [facility] 4 06:38:55 Adult health examinat ion Completed 201305/04/2014 RECORDED 12/24/19 14 8:19AM BY KATY CATALAN I ANNOTATI ON/ADDEN DUM Not Available [facility] 4 06:38:55 Immuniza tion refused Completed 201305/04/2014 RECORDED 12/24/19 14 8:19AM BY ANTHONY GALVEZ ON/LYRIC DUM Not Available [facility] 4 06:38:56 Laborato ry procedur e performe d [id number] Completed 201305/26/2014 RECORDED 04/02/20 14 2:51PM BY NATA RIVERS, LAB REQ Scooter Amador MD [address] [facility] [address], [place], [address] , [facility] 4 12:00:02 Chronic obstruct meri pulmonar y disease 18424850 Active 2016 Rubén Murphy PA-C [address] [facility] [address], [place], [address] , [facility] 7 13:22:11 Uncontro lled type 2 diabetes mellitus 109632863 Active 2016 Deja Murphy PA-C [address] [facility] [address], [place], [address] , [facility] 7 13:55:08 Hyperlip idemia 02985192 Active 2020 Scooter Amador MD [address] [facility] [address], [place], [address] , [facility] 1 19:28:56 Problem Notes None recorded. Procedures Surgical History Date Name Laterality Status Provider Name and Address Organization Details Recorded Time 3 Diabetic Foot Exam (Monofilament) completed Scooter Amador MD [address] [address], [place], [address], [facility] 04/24/2023 15:00:38 2 Diabetic Foot Exam (Monofilament) completed Scooter Amador MD [address] [address], [place], [address], [facility] 12/13/2021 14:39:14 1 Diabetic Foot Exam (Monofilament) completed Scooter Amador MD [address] [address], [place], [address], [facility] 02/07/2021 15:13:59 1 Diabetic Foot Exam (Monofilament) completed Scooter Amador MD [address], [address], [facility] 10/15/2020 13:38:53 0 Diabetic Foot Exam (Monofilament) completed Scooter Amador MD [address], [address], [facility] 04/14/2020 17:17:01 9 Diabetic Foot Exam (Monofilament) completed Scooter Amador MD [address], [address], [facility] 03/20/2019 15:31:43 8 Diabetic Foot Exam (Monofilament) completed Scooter Amador MD [address], [address], [facility] 02/28/2018 07:11:43 6 Most Recent Mammogram completed Magda Marcus [facility] 01/07/2016 08:42:52 6 Mammogram Screening completed Magda Marcus [facility] 01/07/2016 08:42:52 5 Date of Last Pap Smear completed Luis Alberto Smith [facility] 03/22/2017 16:18:21 4 Nebulizer tx completed MARIE Pfeiffer [address], [address], [facility] 07/15/2014 14:31:36 Other completed Miryam boone [facility] 07/15/2014 14:13:40 Imaging Results None recorded. Procedure Notes None recorded. Medical Equipment None Reported. Allergies Allergen ID Allergen Name Allergen Category Reaction Reaction Severity Criticality Documentation Date Start Date Code Code System Note Provider Name and Address Organization Details Recorded Time 13817 Actos medicatio n edema moderate Not available 06/29/2021 13573 2 RxNorm Scooter dean MD [address] [facility] [address], [place], [address], [facility] 1 09:25:21 48298 Farxiga medicatio n respirato ry distress Not available Not available 02/25/2025 82811 72 RxNorm Erica Caporale, SUPERINTENDENT [employer] null, [facility] 5 13:19:33 Medications Name Sig [...] release 24 hr 1 TABLET DAILY AT [facility] active Not Available Not Available No t [...] completed Seems like it was replaced by [facility] Not Available Not Available Not Available [...] Not Available Not Available Not Available [employer] [place] kit DAILY 07/03 completed RECORDED 07/15/20 13 [...] DateTime 01/22/2025 165.74 cm Janny Zapata MA [facility] 01/22/2025 15:20:54 Date Recorded Body height Body mass index (BMI) Body weight Heart rate Oxygen saturation Body temperature Systolic And Diastolic Provider Name and Address Organization Details Last Updated DateTime 5 165.74 cm 33.6 kg/m2 21982.0 5 g 106 /min 98 % 97.8 [degF] 124/68 mm[Hg] Erica Olsen LPN [facility] 5 13:16:49 Date Recorded Body height Body mass index (BMI) Body weight Heart rate Oxygen saturation Body temperature Systolic And Diastolic Provider Name and Address Organization Details Last Updated DateTime 4 165.74 cm 34.5 kg/m2 01698.8 1 g 105 /min 95 % 98 [degF] 143/83 mm[Hg] Janny Zapata MA [facility] [place] 4 14:37:07 Date Recorded Body height Body mass index (BMI) Body weight Heart rate Oxygen saturation Body temperature Systolic And Diastolic Systolic And Diastolic Provider Name and Address Organization Details Last Updated DateTime 5 165.74 cm 33.4 kg/m2 41629.6 6 g 108 /min 97 % 97.8 [degF] 145/82 mm[Hg] 124/82 mm[Hg] Chuyita Dubois MA [facility] 5 13:37:28 Social History Question Answer Notes LastModified by Organizat ion Details LastModified Time Tobacco Smoking Status Current Every Day Smoker Not Available [facility] 07/27/2020 03:36:37 Do You Have An Advance Directive? Yes [id number] Information not available 07/27/2020 Is Blood Transfusion Acceptable In An Emergency? Yes [id number] Information not available 07/27/2020 What Is Your Level Of Caffeine Consumption? Moderate [id number] Information not available 07/27/2020 How Much Tobacco Do You Chew? None [id number] Information not available 07/27/2020 What Type Of Diet Are You Following? DIABETIC [id number] Information not available 07/27/2020 Which Illicit Or Recreational Drugs Have You Used? No [id number] Information not available 07/27/2020 Education 8 Information n ot available 05/26/2014 Are There Any Guns Present In Your Home? No [id number] Information not available 07/27/2020 Hard Of Hearing [...] Have You Served In The ? No [email or web address] Information not available 10/31/2016 Have You Or Anyone In Your Household Had Any Of The Following Symptoms In The Last 14 Days: Sore Throat, Cough, Chills, Body Aches For Unknown Reasons, Shortness Of Breath For Unknown Reasons, Loss Of Smell, Loss Of Taste, Fever At Or Greater Than 100 Degrees Fahrenheit? No [email or web address] Information not available 04/13/2020 Are You Or Anyone In Your Household A Health Care Provider Or Emergency Responder? No [email or web address] Information not available 04/13/2020 To The Best Of Your Knowledge Have You Been In Close Proximity To Any Individual Who Tested Positive For COVID-19? No [email or web address] Information not available 04/13/2020 Have You Recently Traveled To A COVID-19 High Risk Area Or Gathering In The Last 10 Days? No [email or web address] Information not available 10/14/2020 What Was The Date Of Your Most Recent Tobacco Screening? 01/22/2025 Information not available 01/22/2025 How Many Children Do You Have? 2 [id number] Information not available 07/27/2020 What Is Your Current Pack Years? 30ormorepacky ears [id number] Information not available 07/27/2020 Do You Use Protection During Sex? No [id number] Information not available 07/27/2020 Seat Belts Used Routinely Yes [email or web address] Information not available 08/10/2015 Are You Sexually Active? Yes [id number] Information not available 07/27/2020 Smoke Alarm In Home Yes [email or web address] Information not available 08/10/2015 At What Age Did You Start Smoking Tobacco? 17 [id number] Information not available 07/27/2020 Are You Passively Exposed To Smoke? Yes [email or web address] Information no t available 07/15/2020 How Much Tobacco Do You Smoke? 2 PPD Information not available 01/22/2025 General Stress Level High Information not available 05/26/2014 Do You Use Sunscreen Routinely? Yes [id number] Information not available 07/27/2020 How Many Years [...] is your level of alcohol consumption? Occasional [id number] Information not available 07/27/2020 Do you or have you ever used smokeless tobacco? Never used smokeless tobacco [id number] Information not available 07/27/2020 Are you currently employed? No [id number] Information not available 07/27/2020 Are you able to walk independently without assistance or assistive devices? YESWOREST Information not available 12/13/2021 Are you able to care for yourself independently? No [id number] Information not available 07/27/2020 Do you or have you ever used e-cigarettes or vape? Never used electronic cigarettes [id number] Information not available 07/27/2020 What is your exercise level? Occasional [id number] Information not available 07/27/2020 Mental Status None [...] pneumococcal polysaccharide PPV23 015 completed Not Available [facility] 10/11/2019 02:21:41 COVID-19, mRNA, LNP-S, PF, 30 mcg/0.3 mL dose 021 completed GM Vazquez [facility] 06/28/2021 15:21:04 COVID-19, mRNA, LNP-S, PF, 30 mcg/0.3 mL dose 021 completed GM Vazquez [facility] 06/28/2021 15:21:23 Td (adult), 2 Lf tetanus toxoid, preservative free, adsorbed 019 completed Not Available [facility] 10/11/2019 02:21:30 Influenza, split virus, quadrivalent, PF 020 cancelled patient objection Kaela Vasquez MA [facility] 07/15/2020 14:31:12 Influenza, split virus, trivalent, preservative 008 completed Not Available [facility] 04/07/2014 14:07:42 Tdap 008 completed Not Available [facility] 04/07/2014 14:07:42 Influenza, split virus, trivalent, preservative 010 completed Not Available [facility] 04/07/2014 14:07:42 Influenza, split virus, trivalent, preservative 011 completed Not Available [facility] 04/07/2014 14:07:43 Past Encounters Encounter ID Performer Location Encounter Start Date Encounter Closed Date Diagnosis/Indication Diagnosis SNOMED-CT Code Diagnosis ICD10 Code Diagnosis IMO Codes Diagnosis Note [id number] autoEComm erce [address] [facility] [place] [address] 11/19/2006 00:00:00 [id number] autoEComm erce [address] [facility] [place] [address] 12/10/2006 00:00:00 [id number] autoEComm erce [address] [facility],[address] [place] [address] 02/22/2007 00:00:00 [id number] autoEComm erce [address] [facility],[address] [place] [address] 08/24/2006 00:00:00 [id number] autoEComm erce [address] [facility],[address] [place] [address] 06/22/2006 00:00:00 [id number] autoEComm erce [address] [facility],[address] [place] [address] 06/04/2006 00:00:00 [id number] autoEComm erce [address] [facility],[address] [place] [address] 03/25/2007 00:00:00 [id number] autoEComm erce [address] [facility],[address] [place] [address] 06/05/2007 00:00:00 [id number] autoEComm erce [address] [facility] [address] [place] [address] 10/25/2007 00:00:00 [id number] autoEComm erce [address] [facility] [address] [place] [address] 01/22/2008 00:00:00 [id number] autoEComm erce [address] [facility] [place] [address] 04/23/2008 00:00:00 [id number] autoEComm erce [address] [facility] [place] [address] 08/06/2008 00:00:00 [id number] autoEComm erce [address] [facility] [place] [address] 08/08/2008 00:00:00 [id number] autoEComm erce [address] [facility] [place] [address] 10/09/2008 00:00:00 [id number] autoEComm erce [address] [facility] [place] [address] 12/11/2008 00:00:00 [id number] autoEComm erce [address] [facility],[address] [place] [address] 01/12/2009 00:00:00 [id number] autoEComm erce [address] [facility],[address] [place] [address] 04/26/2009 00:00:00 [id number] autoEComm erce [address] [facility],[address] [place] [address] 07/29/2009 00:00:00 [id number] autoEComm erce [address] [facility] [place] [address] 09/07/2009 00:00:00 [id number] autoEComm erce [address] [facility],[address] [place] [address] 02/09/2010 00:00:00 [id number] autoEComm erce [address] [place] [address] 03/11/2010 00:00:00 [id number] autoEComm erce [address] [place] [address] 05/31/2010 00:00:00 [id number] autoEComm erce [address] [place] [address] 06/21/2010 00:00:00 [id number] autoEComm erce [address] [facility] [address] [place] [address] 08/24/2010 00:00:00 [id number] autoEComm erce [address] [facility] [address] [place] [address] 09/12/2010 00:00:00 [id number] autoEComm erce [address] [facility] [place] [address] 11/24/2010 00:00:00 [id number] autoEComm erce [address] [facility] [place] [address] 01/20/2011 00:00:00 [id number] autoEComm erce [address] [facility] [address] [place] [address] 03/02/2011 00:00:00 [id number] autoEComm erce [address] [facility] [place] [address] 06/09/2011 00:00:00 [id number] autoEComm erce [address] [facility] [address] [place] [address] 10/03/2011 00:00:00 [id number] autoEComm erce [address] [facility] [address] [place] [address] 02/05/2012 00:00:00 [id number] autoEComm erce [address] [facility] [address] [place] [address] 03/05/2012 00:00:00 [id number] autoEComm erce [address] [place] [address] 05/01/2012 00:00:00 [id number] autoEComm erce [address] [facility] [place] [address] 07/08/2012 00:00:00 [id number] autoEComm erce [address] [facility] [place] [address] 10/08/2012 00:00:00 [id number] autoEComm erce [address] [facility],[address] [place] [address] 01/09/2013 00:00:00 [id number] autoEComm erce [address] [facility] [place] [address] 07/15/2013 00:00:00 [id number] autoEComm erce [address] [facility],[address] [place] [address] 01/05/2014 00:00:00 [id number] autoEComm erce [address] [facility] [place] [address] 11/09/2009 00:00:00 [id number] autoEComm erce [address] [facility] [place] [address] 04/09/2013 00:00:00 [id number] autoEComm erce [address] [facility],[address] [place] [address] 11/28/2011 00:00:00 [id number] autoEComm erce [address] [facility] [place] [address] 09/15/2011 00:00:00 [id number] autoEComm erce [address] [facility] [place] [address] 07/11/2011 00:00:00 [id number] Scooter Amador MD Main Office [address] [facility] [address] [place] [address] 05/26/2014 11:43:44 05/26/2014 12:22:40 Type 2 diabetes mellitus 49156667 Pure hypercholesterolemia 261965950 Schizophrenia 16699286 Tobacco de pendence syndrome 29840247 [id number] Espino Main Office [address] [address] [place] [address] 07/15/2014 13:46:49 07/15/2014 14:50:06 Allergic rhinitis 96618786 Cough 73666725 Cough, congestion , insp/ exp wheezing, hoarse voice, tachycardi a, sat 93% RA. Will treat with prednisone burst and zpak for possible bacterial infection. Also recommend patient use her inhaler 2 puffs every 4 hours as needed for cough/ wheezing. Stay well hydrated, humidifier as needed, rest, tylenol or ibuprofen as needed for pain/ fever. Nasal congestion 76733553 [id number] cSooter Amador MD Main Office [address] [address] [place] [address] 01/27/2015 14:32:48 01/27/2015 15:55:21 Adult health examination 508733717 Administra tion of pneumococcal vaccine 10946822 Type 2 irasema betes mellitus without complication 395751605 will increase her metformin from 500 bid to 1000 bid since her A1C is no longer at goal. Screening for malignant neoplasm of breast 857629898 Pure hypercholesterolemia 277969966 will increase her dose from 20 to 40 mg since her LDL is not at goal. Schizophrenia 39534623 on meds, living in a shelter and followed by psych. [id number] Scooter Amador MD Main Office [address] [address] [place] [address] 05/06/2015 14:03:50 05/06/2015 15:26:34 Type 2 diabetes mellitus 78846897 Pure hypercholesterolemia 979038103 will increase her dose from 20 to 40 mg since her LDL is not at goal. Allergic rhinitis 03077901 continue current mgmt [id number] Scooter Amador MD Main Office [address] [address] [place] [address] 08/10/2015 14:23:33 08/10/2015 15:23:14 Type 2 diabetes mellitus 78354379 E11.9 her A1C has been at goal in the past. She is c/w her meds. Gynecologi c examination 37245512 Z01.411 Screening for malignant neoplasm of breast 992171907 Z12.39 she has never had a mammogram because she has been anxious about going but states that she feels she is now ready. Tobacco de pendence syndrome 90976833 F17.290 we spoke about quitting. She stopped smoking in the past during each of her pregnancie s. [id number] Scooter Amador MD Main Office [address] [address] [place] [address] 11/09/2015 14:31:59 11/09/2015 15:27:25 Type 2 diabetes mellitus 60170800 E11.9 her A1C is at goal in the past. She is c/w her meds. Schizophrenia 92453205 F 20.3 on meds, living in a shelter and followed by psych. Tobacco de pendence syndrome 19087229 F17.290 we spoke about quitting. She stopped smoking in the past during each of her pregnancie s. Pure hypercholesterolemia 340145616 E78.0 we increased her dose from 20 to 40 mg since her LDL was not at goal. Recheck fasting lipid level. Chest pain 27380123 R07. 9 she is at high risk for heart disease because of her smoking and diabetes [id number] Scooter Amador MD Main Office [address] [address] [place] [address] 02/16/2016 12:45:58 02/16/2016 13:25:59 Type 2 diabetes mellitus 52069978 E11.9 her A1C is at goal in the past. She is c/w her meds. Schizophrenia 83398283 F 20.3 on meds, living in a shelter and followed by psych. [id number] Deja Murphy PA-C Main Office [address] [address] [place] [address] 06/30/2016 15:03:47 06/30/2016 15:45:43 Injury of finger 39428746 S69.82XA L big finger injury due to fall. XRAys to r/o fracture. Immobiliza tions with splint, ice several times daily and NSAIDs as directed for 7-10 days. referral to hand specialist . [id number] Deja Murphy PA-C Main Office [address] [address] [place] [address] 09/22/2016 15:06:27 09/22/2016 16:05:08 Cough 26543469 R05 Acute pharyngitis 171755 003 J02.9 Acute sinusitis 50167416 J01.90 Wheezing 80925126 R06.2 [id number] Scooter Amador MD Main Office [address] [facility] [address] [place] [address] 10/31/2016 13:40:19 10/31/2016 14:46:59 Adult health examination 612100342 Z00.00 UTD with immunizati ons. Had a PAP done Jul 2015. Type 2 irasema betes mellitus 58368797 E11.9 her A1C is a little above goal. She is c/w her meds. She will try to make some changes and we will f/u in 3 months w/o making any changes in meds right now. We will make an eye appointmen t for her. Schizophrenia 40308212 F 20.3 on meds, living in a shelter and followed by psych. Tobacco de pendence syndrome 26141399 F17.290 we spoke about quitting. She stopped smoking in the past during each of her pregnancie s. Hyperlipidemia 65943653 E78.5 We increased her med at a previous visit and will recheck her fasting lipid level. [id number] Rubén Murphy PA-C Main Office [address] [address] [place] [address] 12/25/2016 11:34:50 12/25/2016 12:20:54 Acute conjunctivitis 06361681 H10.33 Nasal congestion 6944896 0 R09.81 [id number] Scooter Amador MD Main Office [address] [address] [place] [address] 03/06/2017 12:39:50 03/06/2017 13:33:42 Type 2 diabetes mellitus 12824350 E11.9 Her A1C continues to rise as does her weight. We will add januvia to her regimen. Schizophrenia 58386608 F 20.3 on meds, living in a shelter and followed by psych. [id number] Rubén Murphy PA-C Main Office [address] [address] [place] [address] 05/10/2017 15:11:49 05/10/2017 16:27:12 Sore throat 671637043 J02.9 Pneumonia 488955310 J18. 9 Wheezing 25167980 R06.2 is running low on proair - has used it past few days - will renew [id number] Rubén Murphy PA-C Main Office [address] [facility] 207 [facility] [place] [address] 05/24/2017 09:33:03 05/24/2017 11:17:36 Dyspnea 276367425 R06.00 much improved p pna rx pt [...] gums - it has helped before Pneumonia 625186704 J18. 9 resolved s/p rx Tobacco de pendence syndrome 60170074 F17.200 strongly encouraged tob cessation - she states she will try ankit gums again - this had worked for her in the past Cough 80314312 R05 most likely d/t prolonged tobacco exp. - see below Chronic ob structive pulmonary disease 68965350 J44.9 see above [id number] Scooter Amador MD Main Office [address] [facility] 207 [place] [address] 06/06/2017 14:22:12 06/06/2017 16:18:04 Type 2 diabetes mellitus 24551642 E11.9 Since her A1C was rising we did a script for januvia which was not covered by her insurance. We then did a script for actos which she only filled about 2-3 weeks ago. Her A1C has come down slightly so we will not make any changes at this time. Chronic ob structive pulmonary disease 81399488 J44.9 We discussed quitting smoking to help prevent further progressio n. Since she denies SOB and exam is normal we will not start any meds but will monitor her function. [id number] Deja Murphy PA-C Main Office [address] [facility] 207 [facility] [place] [address] 07/06/2017 12:59:15 07/06/2017 14:07:16 Uncontrolled type 2 diabetes mellitus 632580793 E11.65 Total time spent teaching and coordinati [...] be set up to see notionist at [facility]. Pt. was advised to start exercise activity [...] m. Body mass index 30+ - obesity 866623425 Z68.34 Obesity 762364739 E66.9 [id number] Scooter Amador MD Main Office [address] [facility] [address] [place] [address] 09/05/2017 12:48:05 09/05/2017 13:58:41 Uncontrolled type 2 diabetes mellitus 585292015 E11.65 Excellent improvemen t in A1C which is now less than 7.0 again (down to 6.8). She will continue with current mgmt since it is working. Dysuria 56535250 R30.0 No longer with symptoms so will send culture and will not do abx for now. She was advised to drink more fluids. Schizophrenia 17522111 F 18.3 on meds, living on her own with super[facility] and followed by psych. [id number] Deja Murphy PA-C Main Office [address] [facility] [address] [place] [address] 10/23/2017 14:27:22 10/23/2017 15:48:51 Uncontrolled type 2 diabetes mellitus 802649211 E11.65 STable type II Diabetes w/o complicati ons. Continue current meds. Discussed lowering calories even further and increasing exercise activity. Test glucose 1 time per day and bring glucose log to next visit. F/u 3 m. Repeat labs. Upper resp iratory infection 09057839 J06.9 Wheezing 47624450 R06.2 Chronic ob structive pulmonary disease 65246634 J44.9 Body mass index 30+ - obesity 672216449 E66.01 Z68.35 [id number] Scooter Amador MD Main Office [address] [place], [place] [address] [address] 02/27/2018 13:02:09 02/27/2018 14:22:54 Adult health examination 461948636 Z00.00 UTD with immunizati ons. Had a PAP done Jul 2015 and will return for a PAP Genital warts 843737770 A63.0 Will try topical treatment and if persists will Uncontroll ed type 2 diabetes mellitus 463372612 E11.65 A1C continues to be at goal below 7.0 and is currently at 6.3 . She will continue with current mgmt since it is working. [id number] Scooter Amador MD Main Office [address] [place], [place] [address] [address] 06/06/2018 12:57:48 06/06/2018 13:58:46 Uncontrolled type 2 diabetes mellitus 339990574 E11.65 A1C continues to be at goal below 7.0 and is currently at 6.6. She will continue with current mgmt since it is working. Schizophrenia 99682153 F 18.3 on meds, living on her own with supervisio n and followed by psych. [id number] Scooter Amador MD Main Office [address] [place] [address] [place] [address] 08/22/2018 13:25:23 08/22/2018 14:17:54 Acute pharyngitis 758764653 J02.9 Cough 73734569 R05 She will use robitussin prn. [id number] Scooter Amador MD Main Office [address] [place] [address] [place] [address] 03/20/2019 15:00:36 03/20/2019 15:56:26 Uncontrolled type 2 diabetes mellitus 865871565 E11.65 A1C continues to be at goal below 7.0 and is currently at 6.7. She will continue with current mgmt since it is working. Schizophrenia 81319170 F 18.3 on meds, living on her own with supervisio n and followed by psych. Chronic ob structive pulmonary disease 54760068 J44.9 Continues to smoke Requires a tetanus booster 011562812 Z23 [id number] Scooter Amador MD Main Office [address] [address] [place] [address] 06/23/2019 14:34:34 06/23/2019 15:59:51 Adult health examination 334760544 Z00.00 UTD with immunizati ons. Had a PAP done Jul 2015 and will return for a PAP Type 2 irasema betes mellitus without complication 229759919 E11.9 Body mass index 30+ - obesity 127616551 E66.01 Z68.36 Schizophrenia 07588545 F 18.3 on meds, living on her own with supervis n and followed by psych. [id number] Scooter Amador MD Main Office [address] [place] [address] 04/13/2020 12:37:21 04/13/2020 13:38:09 Uncontrolled type 2 diabetes mellitus 570599444 E11.65 A1C continues to be at goal below 7.0 and is currently at 6.7. She will continue with current mgmt since it is working. Right late ral elbow tendinopathy 8051168752 42446 M77.11 Chronic ob structive pulmonary disease 86475502 J44.9 Continues to smoke Schizophrenia 77611671 F 18.3 on meds, [facility] and [facility]. Tobacco de pendence syndrome 00036786 F17.290 we spoke about quitting. She stopped smoking in the past during each of her pregnancie s. [id number] Scooter Amador MD Main Office [address] [facility] 207 [place] [address] 07/15/2020 14:10:04 07/15/2020 15:21:15 Adult health examination 804996743 Z00.00 UTD with immunizati ons but refuses a flu vaccine. Had a PAP done Jul 2015 and will return for a PAP Needs infl uenza immunization 275846333 Z23 Uncontroll ed type 2 diabetes mellitus 857644879 E11.65 Her diabetes is no longer uncontroll ed; her A1C today is 7.0. She was encouraged to stay with the same mgmt. Schizophrenia 97604947 F 18.3 on meds, living on her own with supervis n and followed by psych. Tobacco de pendence syndrome 94210908 F17.290 we spoke about quitting. She stopped smoking in the past during each of her pregnancie s. Body mass index 30+ - obesity 013413279 E66.01 [id number] Scooter Amador MD Main Office [address] [address] 10/14/2020 13:41:53 10/14/2020 14:42:06 Uncontrolled type 2 diabetes mellitus 571971621 E11.65 Her A1C increased form 7.0 to 7.7. We will increase her actos from 15 to 30 mg and see her back in 3 months. Hyperlipidemia 43177454 E78.5 We increased her med at a previous visit and LDL is now at goal. Schizophrenia 63960117 F 18.3 on meds, [facility] and followed by psych. Chronic ob structive pulmonary disease 97476403 J44.9 Continues to smoke [id number] Scooter Amador MD Main Office [address] [address] 02/07/2021 14:23:01 02/07/2021 15:22:47 Uncontrolled type 2 diabetes mellitus 767914470 E11.65 Her A1C continues to increase despite being c/w her meds. Will increase her actos from 30 to 45 mg and she will continue metformin trajenta. Chronic ob structive pulmonary disease 65433787 J44.9 Continues to smoke Hyperlipidemia 78792372 E78.5 LDL at goal. Will check fasting lipid level. Schizophrenia 98891055 F 18.3 on meds, [facility] and followed by psych. [id number] Scooter Amador MD [facility] [address] [facility] 207 [place] [address] 03/17/2021 13:57:16 03/18/2021 14:44:54 Uncontrolled type 2 diabetes mellitus 997655474 E11.65 She has been having SE's since [...] in 2 months. Tobacco de pendence syndrome 07421715 F17.290 we spoke about quitting. She stopped smoking in the past during each of her pregnancie s. Anxiety 21873240 F41.9 It is doubtful that this is secondary to her actos. She will speak to her mental health provider about this. [id number] Scooter Amador MD Main Office [address] [place] [address] [place] [address] 06/28/2021 14:51:15 06/28/2021 15:56:27 Uncontrolled type 2 diabetes mellitus 568509285 E11.65 She was not able to tolerate the actos because of ankle swelling, nausea and bloating. She stopped this a couple of months ago and her SE's resolved. Unfortunat sheila her A1C increased from 8.1 to 9.3. We will add another po med and she understand s that she may need meds that require injections in the future. Schizophrenia 26155599 F 18.3 on meds, living on her own with supervisio n and followed by psych. Hyperlipidemia 70127301 E78.5 LDL at goal. Will check fasting lipid level next appointmen t. [id number] Scooter Amador MD Main Office [address] [place] [address] [place] [address] 08/16/2021 13:29:39 08/16/2021 14:38:24 Tinea cruris 974517063 B35.6 Candidiasis of vagina 72 925469 B37.3 [id number] Scooter Amador MD Main Office [address] [place] [address] [place] [address] 12/13/2021 12:41:16 12/13/2021 13:49:23 Adult health examination 865595095 Z00.00 UTD with immunizati ons. Had a PAP done Jul 2015 and will return for a PAP. Does not want to do one today. Uncontroll ed type 2 diabetes mellitus 489473959 E11.65 She was not able to tolerate the actos because of ankle swelling, nausea and bloating. She stopped this a couple of months ago and her SE's resolved. Unfortunat sheila her A1C increased from 8.1 to 9.3. We will add another po med and she understand s that she may need meds that require injections in the future. Chronic ob structive pulmonary disease 67619450 J44.9 Continues to smoke Hyperlipidemia 10459069 E78.5 LDL at goal. Will check fasting lipid level. Schizophrenia 22798307 F 18.3 on meds, living on her own with supervisio n and followed by psych. Body mass index 30+ - obesity 485199226 E66.01 Z68.33 [id number] Scooter Amador MD Main Office [address] [facility] [address] [place] [address] 08/29/2022 13:05:29 08/29/2022 14:30:53 Uncontrolled type 2 diabetes mellitus 550661494 E11.65 She was not able to tolerate the actos because of ankle swelling, nausea and bloating. She stopped this and her SE's resolved. . We added jardiance and tradjenta and her A1C came down from 9.3 to 7.6. She will work on lifestyle changes to bring this down more. Allergic rhinitis 146854 04 J30.9 continue current mgmt Schizophrenia 70012958 F 18.3 on meds, living on her own with [facility] and followed by psych. [id number] Scooter Amador MD Main Office [address] [facility] [address] [place] [address] 04/24/2023 14:19:20 04/24/2023 15:26:54 Uncontrolled type 2 diabetes mellitus 949102360 E11.65 She was not able to tolerate the actos because of ankle swelling, nausea and bloating. She stopped this and her SE's resolved. . We added jardiance and tradjenta and her A1C came down from 9.3 to 7.6. She checks her sugars and says that they are generally in the low 100's. Schizophrenia 60269775 F 18.3 on meds, living on her own with supervis n and followed by psych. Allergic rhinitis 545733 04 J30.9 continue current mgmt Chronic ob structive pulmonary disease 55395151 J44.9 Continues to smoke [id number] Scooter Amador MD Main Office [address] [facility] 207 [place] [address] 08/07/2023 13:23:20 08/07/2023 14:27:58 Uncontrolled type 2 diabetes mellitus 958008953 E11.65 She was not able to tolerate the actos because of ankle swelling, nausea and bloating. She stopped this and her SE's resolved. . We added jardiance and tradjenta and her A1C came down from 9.3 to 7.2. She checks her sugars and says that they are generally in the low 100's. Adult heal th examination 305257993 Z00.00 UTD with immunizati ons. Had a PAP done Jul 2015 and will return for a PAP. Does not want to do one today. Screening for malignant neoplasm of colon 072581122 Z12.11 Tobacco de pendence syndrome 18814637 F17.290 we spoke about quitting. She stopped smoking in the past during each of her pregnancie s. Chronic ob structive pulmonary disease 13101063 J44.9 Continues to smoke Hyperlipidemia 04432468 E78.5 LDL at goal. Will check fasting lipid level. Schizophrenia 78849205 F 18.3 on meds, [facility] and followed by psych. Has some mild depression which is followed by her psych provider. [id number] Scooter Amador MD Main Office [address] [facility] [address] [place] [address] 11/23/2023 11:21:25 11/23/2023 12:21:38 Uncontrolled type 2 diabetes mellitus 210003407 E11.65 A1C increased from 7.2 to 7.3, Would like to continue on metformin and tradjenta instead of adding med, will stay consistent with exercise and trying to eat better. Does exercises in 3 sets to get through during the day. Tradjenta refilled. Schizophrenia 66176805 F 18.3 on meds, [facility] and followed by psych. Allergic rhinitis 167674 04 J30.9 continue current mgmt Chronic ob structive pulmonary disease 52165941 J44.9 Continues to smoke [id number] Scooter Amador MD Main Office [address] [facility] 207 [place] [address] 02/27/2024 14:25:32 02/27/2024 15:27:48 Uncontrolled type 2 diabetes mellitus 473657976 E11.65 She was not able to tolerate the Actos because of ankle swelling, nausea and bloating. She stopped this and her SE's resolved. . We added jardiance and tradjenta and her A1C came down from 9.3 to 7.2. But the jardiance is no longer on formulary. She also stopped the tradjenta for unclear reasons but will restart it. Fatigue 91908159 R53.83 Hyperlipidemia 77418579 E78.5 Last LDL at goal. Will check fasting lipid level. Schizophrenia 67209668 F 20.3 on meds, living on her own with supervisio n and followed by psych. Has some mild depression which is followed by her psych provider. [id number] Scooter Amador MD Main Office [address] [place] [address] 01/20/2025 15:07:20 01/20/2025 15:45:35 [id number] Scooter Amador MD [facility] [address] [place] [address] 01/22/2025 13:02:53 01/23/2025 14:51:58 Allergic rhinitis 19391251 J30.9 continue current mgmt Chronic ob structive pulmonary disease 22887799 J44.9 She has been trying to quit smoking and currently smokes less than 5 cigarettes a day. She understand s that she needs to stop completely since increasing the number of daily cigarettes will likely increase with time. She is not currently using any inhalers. As an inpatient she was given oxygen but was not discharged with it. Schizophrenia 31912933 F 20.3 on meds, living on her own with supervisio n and followed by psych. Has some mild depression which is followed by her psych provider. Tobacco de pendence syndrome 25844271 F17.290 She has cut back significan tly and knows that she needs to quit totally because of her COPD dx. Community acquired pneumonia 007618446 J15.9 [id number] She was septic and was admitted to [facility]. She was discharged to complete a course of abx and steroids. [id number] Scooter Amador MD Main Office [address] [place] [address] 02/25/2025 13:01:35 02/25/2025 13:42:37 Preseptal cellulitis 134135141 L03.213 76726190 x3 days of swelling to the lower and upper lid, erythemato us-denies of any vision changes or pain to the orbital, no pain with EOM-no known trauma to the area-will provide augmentin course and discussed conservati ve measuremen ts Vesicular eczema 3560867 08 L30.1 872 left hand; 3rd and 4th digit- medial aspect-chris l provide topical steroid cream-disc ussed conservati ve measuremen ts [id number] Scooter Amador MD Main Office [address] [place] [address] 06/11/2025 13:06:00 06/11/2025 14:03:22 Chronic vertigo 6420248024 9105 R42 76291259 Chronic ot itis externa 13135150 H60.312 65600611 Uncontroll ed type 2 diabetes mellitus 137766102 E11.65 She was not able to tolerate the Actos because of ankle swelling, nausea and bloating. She stopped this and her SE's resolved. . We added jardiance and tradjenta and her A1C came down from 9.3 to 7.2. But the jardiance is no longer on formulary. She also stopped the tradjenta for unclear reasons but will restart it. Hyperlipidemia 70589397 E78.5 Last LDL at goal. Will check fasting lipid level. Health Concerns Section Related Observation LastModified by Organization Detai ls LastModified Time None Recorded Concern Status LastModified by Organization Details LastModified Time None Recorded Advance Directives Directive Y: Payers Insurance Date Sequence Insurance Name Policy Number Policy Chopra Covered Member ID Chopra Member ID Guarantor Name 01/21/2025 3 [employer] (MEDICARE SUPPLEMENT) Aura Hood [id number] Aura Hood 06/11/2025 1 [place] [facility] Aura Hood [id number] Aura Hood 06/24/2025 2 [place] [facility] Aura Hood [id number] Aura Hood Notes Date Note Type Note [...] been a problem recently. Scooter Amador MD [address] [address], [place], [address], [facility] 02/27/2024 18:37:36 5 text/html Hospitalization Contact RecordReported by PatientHospitalization Contact RecordFor follow up, [facility] date: (please enter in format 'mm/dd/yyyy') [...] comorbidities presented to [facility] with Shortness of breath associated with [...] 5 days of antibiotic and steriod regimen. [employer] updated medication list as noted. Attempted several times to complete ELZBIETA call cell number is out of services , called emergency contact number no answer, unable to leave message. Attempted to look in [employer] for any additional contact infomation no update information was noted . Patient is scheduled to follow up with provider for DM on 02/04/2025 . Scooter Amador MD [address] [address], [place], [address], [facility] 01/20/2025 15:45:32 5 text/html Hospitalization Contact RecordReported by PatientHospitalization Contact RecordFor follow up, [facility]ospital: [facility],admit date: (please enter in format 'mm/dd/yyyy') [...] old female with several comorbidities presented to [facility] with shortness of breath associated with weakness. [...] on 02/04/2025 . Scooter Amador MD [address] [address], [place], [address], [facility] 01/24/2025 11:02:08 5 text/html ROS as noted in the HPI Aura is a 49yr old F who presents for eye redness. Endorses x3 days of swelling and redness to the upper and lower lids and surround skin of the right eye. Denies of any changes in vision or pain with EOM. LESLIE TUCKER [address] [address], [place], [address], [facility] 02/25/2025 13:46:31 5 text/html ROS [...] more than a year. Scooter Amador MD [address] [address], [place], [address], [facility] 06/11/2025 18:08:43 OBGyn Episode No OBEpisode recorded.
[2025-09-15 17:20] LABS: Hematocrit 45.3 % (37.0-47.0); Hemoglobin 15.1 g/dl (12.0-16.0); Imm Gran Abs Auto 0.03 X10*3/uL (0.00-0.03); Imm Gran Pct Auto 0.3 % (0.0-0.4); Lymphocytes Absolute Auto 4.5 X10*3/uL (1.2-4.9); Mean Corpuscular HGB Conc 33.3 g/dl (31.0-35.0); Mean Corpuscular Hemoglobin 30.1 pg (27.0-33.0); Mean Corpuscular Volume 90.4 fL (80.0-98.0); NRBC Abs Auto 0.000 X10*3/uL (0.0-0.012); NRBC Pct Auto 0.0 /100WBC (0.0-0.2); Platelet Count 186 X10*3/uL (160-400); Red Blood Count 5.01 X10*6/uL (4.20-5.50); White Blood Count 11.0 X10*3/uL (4.8-10.8)
== END 2025-09-15 16:37 | disposition home or self-care (01) ==
LOC: HO.LABR 16:36
PROVIDERS: PCP Internal Medicine
DX: Z79.899 Other long term (current) drug therapy (principal)
CPT/HCPCS: 36415; 85025